=== PATIENT | female | born 1950 | race Caucasian/White ===

== ENCOUNTER 2017-01-23 10:00 | Inpatient (IN) | payer OTHER ==
[2017-02-23 11:40] VITALS: BMI 26.6
[2017-02-27] MEDS ORDERED: VASOPRESSIN 20 UNITS/ML VIAL IV ONE (08:44)
[2017-02-27] MEDS ORDERED: MIDAZOLAM HCL 2 MG/2 ML SINGLE DOSE VIAL ONE (09:23)
[2017-02-27] MEDS ORDERED: ROCURONIUM BROMIDE 50 MG/5 ML VIAL ONE (09:23)
[2017-02-27] MEDS ORDERED: PROPOFOL 20 ML ONE (09:23)
[2017-02-27] MEDS ORDERED: SCOPOLAMINE HYDROBROMIDE 1 PATCH PATCH.TD72 ONE (09:24)
[2017-02-27] MEDS ORDERED: LIDOCAINE HCL/PF 2% SDV 5ML VIAL ONE (09:25)
--- NOTE | 2017-02-27 09:41 | HP ---
Past Medical History - Primary Care Physician PCP:: Jameson Thorne - Admission Chief Complaint: utrovaginal prolapse, cystocele, rectocele History of Present Illness: 66 yo f menopausal c/o bulge from vagina with pelvic pressure, urinary frequency , hx of uterovaginal prolapse admitted for vaginal hysterectomy and ap repair, pernioplasty, rba discussed History Source: Patient Limitations to Obtaining History: No Limitations - Past Medical History Cardiovascular: Yes: Hyperlipdemia Pulmonary: Yes: Asthma Psych: Yes: Anxiety, Depression - Past Surgical History Hx Myomectomy: No Hx Transabdominal Cerclage: No - Smoking History Smoking history: Former smoker Have you smoked in the past 12 months: No - Alcohol/Substance Use Hx Alcohol Use: Yes (WINE) Home Medications - Allergies Allergies/Adverse Reactions: Allergies Allergy/AdvReac Type Severity Reaction Status Date / Time Penicillins Allergy Verified 02/27/17 07:35 - Home Medications Home Medications: Ambulatory Orders Atorvastatin Ca [Lipitor] 5 mg PO HS 02/23/17 Fexofenadine/Pseudoephedrine [Maggie-D 24 Hour Tablet] 100 each PO DAILY Fluticasone Propionate [Flovent Diskus] 50 mcg NS DAILY 02/23/17 Levothyroxine [Synthroid -] 100 mcg PO DAILY 02/23/17 [place] Carbonate [Eskalith -] 300 mg PO DAILY 02/23/17 Meclizine HCl 12.5 mg PO PRN PRN 02/23/17 Oxybutynin Chloride 5 mg PO DAILY 02/23/17 Rizatriptan Benzoate [Maxalt] 10 mg PO PRN PRN 02/23/17 Review of Systems - Review of Systems Constitutional: reports: No Symptoms Eyes: reports: No Symptoms HENT: reports: No Symptoms Neck: reports: No Symptoms Cardiovascular: reports: No Symptoms Respiratory: reports: No Symptoms Gastrointestinal: reports: Abdominal Pain Genitourinary: reports: Frequency, Urgency Breasts: reports: No Symptoms Reported Musculoskeletal: reports: No Symptoms Integumentary: reports: No Symptoms Neurological: reports: No Symptoms Endocrine: reports: No Symptoms Hematology/Lymphatic: reports: No Symptoms Psychiatric: reports: No Symptoms 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 Signs: Vital Signs Temperature 98.3 F 02/27/17 07:30 Pulse Rate 73 02/27/17 07:30 Respiratory Rate 18 02/27/17 07:30 Blood Pressure 114/78 02/27/17 07:30 O2 Sat by Pulse Oximetry (%) 98 02/27/17 07:30 Constitutional: Yes: Well Nourished, No Distress, Calm Eyes: Yes: WNL, Conjunctiva Clear, EOM Intact HENT: Yes: WNL, Atraumatic, Normocephalic Neck: Yes: WNL, Supple, Trachea Midline Cardiovascular: Yes: WNL, Regular Rate and Rhythm Respiratory: Yes: WNL, Regular, CTA Bilaterally Gastrointestinal: Yes: WNL ...Rectal Exam: Yes: WNL Renal/: Yes: WNL Internal Exam Deferred: No Vaginal Exam: Yes: Other (gaping) Cervix: Yes: Normal, Other (out of vagina) Uterus: Yes: Normal Adnexa: Not Palpable: Left, Right Breast(s): Yes: WNL Musculoskeletal: Yes: WNL Extremities: Yes: WNL Edema: No Integumentary: Yes: WNL Neurological: Yes: WNL, Alert, Oriented ...Motor Strength: WNL Psychiatric: Yes: WNL, Alert, Oriented Problem List - Problem (1) Uterovaginal prolapse Code(s): N81.4 - UTEROVAGINAL PROLAPSE, UNSPECIFIED (2) Cystocele with rectocele Code(s): N81.10 - CYSTOCELE, UNSPECIFIED N81.6 - RECTOCELE Assessment/Plan vaginal hysterectomy, A.P repair.rba discussed
[2017-02-27] MEDS ORDERED: LEVOFLOXACIN 500 MG PREMIX BAG IVPB ONE (10:00)
[2017-02-27] MEDS ORDERED: LEVOFLOXACIN 500 MG IVPB 100 ML IVPB ONE (10:02)
[2017-02-27] MEDS ORDERED: DEXAMETHASONE SOD PHOSPHATE 4 MG/1 ML VIAL ONE ×2 (10:03→11:23)
[2017-02-27] MEDS ORDERED: ONDANSETRON 4 MG/2 ML VIAL ONE (10:03)
[2017-02-27] MEDS ORDERED: GLYCOPYRROLATE 0.2 MG/1 ML VIAL ONE (11:18)
[2017-02-27] MEDS ORDERED: NEOSTIGMINE METHYLSULFATE 0.5 MG/ML - 10 ML MDV ONE (11:18)
[2017-02-27] MEDS ORDERED: MECLIZINE HCL 12.5 MG TABLET PO PRN (11:22)
[2017-02-27] MEDS ORDERED: PATIENT'S OWN MEDICATION (NON-FORMULARY) (Rizatriptan Benzoate [Maxalt] 10 MG) PO PRN (11:22)
[2017-02-27] MEDS ORDERED: IBUPROFEN 600 MG TABLET (FP) PO PRN (11:24)
[2017-02-27] MEDS ORDERED: oxyCODONE HCL 5 MG TABLET PO PRN (11:24)
[2017-02-27] MEDS ORDERED: ONDANSETRON 4 MG/2 ML VIAL IVPB PRN (11:24)
[2017-02-27] MEDS ORDERED: ELECTROLYTE-148 SOLN 1,000 ML IV SCH (11:30)
[2017-02-27] MEDS ORDERED: LORAZEPAM CARPU-JECT 2 MG/ML DISP.SYRIN ONE (11:36)
[2017-02-27] MEDS ORDERED: LORAZEPAM CARPU-JECT 2 MG/ML DISP.SYRIN IVPUSH ONE (11:36)
[2017-02-27] MEDS ORDERED: PROMETHAZINE HCL 25 MG/1 ML VIAL IVPUSH PRN (11:36)
[2017-02-27] MEDS ORDERED: ONDANSETRON 4 MG/2 ML VIAL IVPUSH PRN (11:36)
[2017-02-27] MEDS ORDERED: LACTATED RINGERS SOLUTION 1,000 ML IV SCH (11:45)
[2017-02-27] MEDS ORDERED: IBUPROFEN 800 MG/8 ML IJ IVPB ONE (12:27)
[2017-02-27] MEDS: IBUPROFEN 800 MG/8 ML IJ IVPB PRN ×2 (13:20→19:35)
[2017-02-27] MEDS ORDERED: CLINDAMYCIN 600MG PREMIX IVPB 50 ML IVPB ONE (18:00)
[2017-02-27] MEDS ORDERED: ATORVASTATIN CA 10 MG TABLET (FP) PO SCH (22:00)
[2017-02-28] MEDS: IBUPROFEN 800 MG/8 ML IJ IVPB PRN (05:19)
[2017-02-28] MEDS ORDERED: LEVOTHYROXINE NA 100 MCG TABLET (FP) PO SCH (07:00)
[2017-02-28 08:41] LABS: COCKROFT - GAULT 41.8115; CREATININE 1.3 mg/dL (0.55-1.02)
[2017-02-28 08:45] LABS: MCH 26.8 pg (25.7-33.7); MCHC 32.5 g/dl (32.0-36.0); MEAN CELL VOLUME 82.6 fl (80-96); MEAN PLT VOLUME 9.5 fl (7.5-11.1); PLATELET COUNT 192 K/MM3 (134-434)
[2017-02-28] MEDS ORDERED: PATIENT'S OWN MEDICATION (NON-FORMULARY) (Fluticasone Propionate [Flovent Diskus] 50 MCG) NS SCH (10:00)
[2017-02-28] MEDS ORDERED: CLINDAMYCIN 600MG PREMIX IVPB 50 ML IVPB ONE (10:00)
[2017-02-28] MEDS ORDERED: LEVOFLOXACIN 500 MG TABLET (FP) PO ONE (10:00)
[2017-02-28] MEDS ORDERED: PATIENT'S OWN MEDICATION (NON-FORMULARY) (Fexofenadine/Pseudoephedrine [Allegra-D 24 Hour PO SCH (10:00)
[2017-02-28] MEDS ORDERED: LITHIUM CARBONATE 300 MG CAPSULE (FP) PO SCH (10:00)
[2017-02-28] MEDS ORDERED: LEVOFLOXACIN 500 MG IVPB 100 ML IVPB ONE (10:00)
[2017-02-28] MEDS ORDERED: ENOXAPARIN NA (PORCINE) 40 MG/0.4 ML DISP.SYRIN SQ SCH (10:00)
--- NOTE | 2017-02-28 10:34 | PN ---
Progress Note (short form) - Note Progress Note: pod 1 doing well, no c/o ,voids ok, passing gas, no vaginal bleeding or discharge pulse 77 CBC, BMP 02/28/17 07:30 02/28/17 07:30 Last Vital Signs Temp Pulse Resp BP Pulse Ox 97.7 F 44 L 18 103/62 100 02/28/17 06:00 02/28/17 06:00 02/28/17 06:00 02/28/17 06:00 02/27/17 14:45 abdomen soft, no distension , no cva, non tender vagina no bleeding or discharge no calf tenderness impression doing well, asymptomatic , plan d/c home follow up with pcp. rto 3 weeks instruction given, Tylenol prn for pain Problem List - Problems (1) Uterovaginal prolapse Code(s): N81.4 - UTEROVAGINAL PROLAPSE, UNSPECIFIED (2) Cystocele with rectocele Code(s): N81.10 - CYSTOCELE, UNSPECIFIED N81.6 - RECTOCELE
--- NOTE | 2017-02-28 10:38 | DS ---
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: Vital Signs Temperature 97.7 F 02/28/17 06:00 Pulse Rate 44 L 02/28/17 06:00 Respiratory Rate 18 02/28/17 06:00 Blood Pressure 103/62 02/28/17 06:00 O2 Sat by Pulse Oximetry (%) 100 02/27/17 14:45 Constitutional: Yes: Well Nourished, No Distress, Calm Eyes: Yes: WNL, Conjunctiva Clear, EOM Intact HENT: Yes: WNL, Atraumatic, Normocephalic Neck: Yes: WNL, Supple, Trachea Midline Cardiovascular: Yes: WNL, Regular Rate and Rhythm Respiratory: Yes: WNL, Regular, CTA Bilaterally Gastrointestinal: Yes: WNL ...Rectal Exam: Yes: WNL Renal/: Yes: WNL External Genitalia: Yes: Normal Vaginal Exam: Yes: Normal Breast(s): Yes: WNL Musculoskeletal: Yes: WNL Extremities: Yes: WNL Integumentary: Yes: WNL Neurological: Yes: WNL, Alert, Oriented ...Motor Strength: WNL Psychiatric: Yes: WNL, Alert, Oriented Labs: CBC, BMP 02/28/17 07:30 02/28/17 07:30 Discharge Summary Reason For Visit: UTEROVAGINAL PROLAPSE Current Active Problems Cystocele with rectocele (Acute) Uterovaginal prolapse (Acute) Procedures: Principal: vaginal hysterectomy, cystorectocele repair , pernioplasty Condition: Good - Instructions Diet, Activity, Other Instructions: regular diet, if pain, difficulty voiding,heavy bleeding, fever , call MD, follow up office 3 weeksno intercourse Referrals: Jameson Thorne MD [Staff Physician] - Disposition: HOME - Home Medications Comprehensive Discharge Medication List: Ambulatory Orders Atorvastatin Ca [Lipitor] 5 mg PO HS 02/23/17 Fexofenadine/Pseudoephedrine [Maggie-D 24 Hour Tablet] 100 each PO DAILY Fluticasone Propionate [Flovent Diskus] 50 mcg NS DAILY 02/23/17 Levothyroxine [Synthroid -] 100 mcg PO DAILY 02/23/17 [place] Carbonate [Eskalith -] 300 mg PO DAILY 02/23/17 Meclizine HCl 12.5 mg PO PRN PRN 02/23/17 Oxybutynin Chloride 5 mg PO DAILY 02/23/17 Rizatriptan Benzoate [Maxalt] 10 mg PO PRN PRN 02/23/17
[2017-02-28] MEDS ORDERED: BISACODYL 10 MG SUPP.RECT RC ONE (11:02)
[2017-02-28] MEDS ORDERED: BISACODYL 5 MG TABLET.DR (FP) PO ONE (11:15)
--- NOTE | 2017-02-28 11:15 | PN ---
Progress Note (short form) - Note Progress Note: ANESTHESIOLOGY POST-OP CHECK 66F s/p vaginal hysterectomy under general anesthesia, POD #1. No acute complaints. Denies pain, N/V. Tolerating PO, voiding. Vital Signs Temperature 97.7 F 02/28/17 06:00 Pulse Rate 44 L 02/28/17 06:00 Respiratory Rate 18 02/28/17 06:00 Blood Pressure 103/62 02/28/17 06:00 O2 Sat by Pulse Oximetry (%) 100 02/27/17 14:45 Active Medications Atorvastatin Calcium (Lipitor -) 5 mg PO HS [facility] Last Admin: 02/27/17 21:40 Dose: 5 mg Bisacodyl (Dulcolax -) 20 mg PO ONCE ONE Stop: 02/28/17 11:16 Enoxaparin Sodium (Lovenox -) 40 mg SQ DAILY [facility] Last Admin: 02/28/17 09:49 Dose: 40 mg Parenteral Electrolytes (Plasma-Lyte 148 -) 1,000 mls @ 125 mls/hr IV ASDIR [facility] Last Admin: 02/27/17 19:00 Dose: Not Given Lactated Ringer's (Lactated Ringers Solution) 1,000 mls @ 125 mls/hr IV ASDIR [facility] Last Admin: 02/28/17 02:01 Dose: 125 mls/hr Ibuprofen (Motrin -) 600 mg PO Q6H PRN PRN Reason: FEVER Ibuprofen (Caldolor Injection -) 800 mg IVPB Q6H PRN PRN Reason: FEVER Last Admin: 02/28/17 05:19 Dose: 800 mg Levothyroxine Sodium (Synthroid -) 100 mcg PO DAILY@0700 [facility] Last Admin: 02/28/17 06:22 Dose: 100 mcg [place] Carbonate (Eskalith -) 300 mg PO DAILY [facility] Last Admin: 02/28/17 09:44 Dose: 300 mg Meclizine HCl (Antivert -) 12.5 mg PO DAILY PRN PRN Reason: DIZZINESS Non-Formulary Medication (Fexofenadine/Pseudoephedrine [Maggie-D 24 Hour Tablet ]) 100 each PO DAILY [facility] Non-Formulary Medication (Fluticasone Propionate [Flovent Diskus]) 50 mcg NS DAILY [facility] Last Admin: 02/28/17 09:54 Dose: Not Given Non-Formulary Medication (Rizatriptan Benzoate [Maxalt]) 10 mg PO PRN PRN PRN Reason: HEADACHE Ondansetron HCl (Zofran Injection) 4 mg IVPB Q6H PRN PRN Reason: NAUSEA Oxycodone HCl (Roxicodone -) 5 mg PO Q4H PRN PRN Reason: PAIN LEVEL 1-5 Gen: Awake, alert No apparent anesthesia complications. Pain well controlled. Continue management as per primary team.
[2017-02-28 13:43] VITALS: BP 91/58; PULSE 47; TEMP 98
--- NOTE | 2017-02-28 13:53 | PATH ---
Surgical Pathology Report Patient Name: [facility]. Rec. 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 Specimen(s) Received A: UTERUS AND CERVIX B: ANTERIOR & POSTERIOR VAGINAL MUCOSA C: PERINEUM SKIN Clinical History Uterovaginal prolapse, rectocele Final Diagnosis A. UTERUS AND CERVIX, HYSTERECTOMY: UTERUS AND CERVIX, 31 GRAMS, WITH HYALINIZED LEIOMYOMA WITH DYSTROPHIC CALCIFICATION, ATROPHIC ENDOMETRIUM, BENIGN ENDOCERVICAL POLYP, AND CERVIX WITH CHRONIC INFLAMMATION. B. VAGINAL MUCOSA, ANTERIOR AND POSTERIOR, EXCISION: BENIGN SQUAMOUS MUCOSA WITH CHRONIC INFLAMMATION. C. PERINEUM, EXCISION: BENIGN SQUAMOUS MUCOSA. Electronically Signed Harinder Segura M.D. Gross Description A. Received in formalin labeled "uterus and cervix," is a 31 g uterus with an attached cervix and no attached adnexa. The specimen measures 6.8 cm from superior to inferior, 2.8 cm from left to right and 2.0 cm from anterior to posterior. The serosa is pink-watters and smooth with a focal 2.8 cm in greatest dimension bulging subserosal nodule. The attached cervix measures 2.3 cm in length and averages 2.1 cm in diameter. The ectocervix is pink-watters, smooth and glistening. The endocervix displays a 0.7 cm in greatest dimension polypoid lesion on the anterior surface. The endometrial cavity measures 3 cm in length a 1 cm from cornu to cornu. The endometrium is watters and averages 0.1 cm in thickness. The myometrium is watters-pink and averages 0.9 cm in thickness. No intramural nodules are identified. The cut surface of the subserosal nodule is watters, firm to rubbery and displays whirled architecture. No areas of hemorrhage or necrosis are identified. [employer] sections are submitted in 8 cassettes as follows: 1-anterior cervix with endocervical polyp; 2-posterior cervix; 8-2-qcxiuyhs endomyometrium; 9-1-vhfwoeris endomyometrium; 1-2-vpstpgksee nodule. B. Received in formalin labeled "anterior/posterior vaginal mucosa," are 2 watters-pink, irregular, unoriented portions of mucosal tissue measuring 3.5 x 1.9 x 0.2 cm and 5.7 x 1.9 x 0.3 cm. No discrete lesions are identified. [employer] sections are submitted in one cassette. C. Received in formalin labeled "perineum skin," are 2 watters, irregular, unoriented portions of skin measuring 2.0 x 0.8 x 0.3 cm and 1.8 x 1.3 x 0.3 cm. No discrete lesions are identified. [employer] sections are submitted in one cassette. 02/27/2017 [facility]02/27/2017
--- NOTE | 2017-02-28 14:47 | OP ---
DATE OF OPERATION: 02/27/2017 PREOPERATIVE DIAGNOSIS: Uterovaginal prolapse, cystocele, rectocele. POSTOPERATIVE DIAGNOSIS: Uterovaginal prolapse, cystocele, rectocele. PROCEDURE PERFORMED: Vaginal hysterectomy, anterior and posterior repair and perineoplasty. SURGEON: Jameson Thorne MD WILLOW ANALYST: Dr. Lara Tolentino. ANESTHESIA: ANESTHESIOLOGIST: ESTIMATED BLOOD LOSS: 150 mL. PROCEDURE IN DETAIL: The patient was taken to the operating room and underwent adequate general anesthesia. Examination under anesthesia revealed vaginal introitus gaping, large rectocele with moderate cystocele. Cervix was out of the vagina. Uterus was retroverted with a small posteriorly. Adnexa no masses palpable. With the weighted speculum in the vagina, anterior lip of the cervix was grasped with single-tooth tenaculum. Paravaginal lavaged and mucosa was infiltrated with a vasopressin solution and Miguel was inserted. Then, vaginal mucosa was circumferentially cut around the cervix and the cervix was grasped with single-toothed tenaculum and then anterior and posterior vaginal mucosa was undermined with Metzenbaum scissors and then the posterior cul-de-sac peritoneum was grasped and entered and then the weighted speculum was placed into the posterior cul-de-sac. Then, the bladder was pushed out. Uterosacral ligament was identified, grasped with LigaSure cautery, cauterized and cut. The anterior peritoneum was entered and then bladder was lifted. With the LigaSure cautery both uterine arteries were cauterized and cut. Then, paramesial area was grasped with LigaSure cautery, cauterized and cut and then the upper pedicles were reached. Upper pedicles were grasped with the Jorge clamp, cauterized with bipolar cautery and cut. Then, the pedicles were tied with 2-0 Vicryl ties. No active bleeding was seen. Specimen was removed. The peritoneum and vaginal mucosa were closed with interrupted suture of 0 Vicryl. The anterior vaginal mucosa was infiltrated with a dilution of the vasopressin and then undermined with Metzenbaum scissors and the vaginal mucosa from the bladder then excess vaginal mucosa was cut and then the cystocele was repaired with interrupted suture of 3-0 Vicryl. Excess vaginal mucosa was cut and anterior vaginal mucosa was brought together with interrupted suture of the 3-0 Vicryl. Then, the posterior repair started with infiltrating the posterior vaginal mucosa with diluted vasopressin and then the posterior vaginal perineal skin was removed with Metzenbaum scissors and then posterior vaginal mucosa was undermined with Metzenbaum scissors, from the rectum and then rectocele was repaired with interrupted suture of 3-0 Vicryl and reduced completely. Then, the excess vaginal mucosa was cut and the posterior vaginal mucosa brought together with interrupted suture of 3-0 Vicryl. Then, the posterior perineal muscles were brought together with interrupted suture of 3-0 Vicryl and then vaginal mucosa and the perineum were closed with suture of 3-0 Vicryl in episiotomy like fashion. Miguel had clear urine. No active bleeding. Vaginal wall was irrigated and not bleeding was seen. The patient tolerated the procedure well and left the OR in good condition. Gus [id number]
== END 2017-02-28 16:05 | disposition home or self-care (01) | DRG 743 ==
LOC: JSAMEDAYSX 02-27 06:51 → J3W 02-27 14:10
PROVIDERS: ADMIT Obstetrics & Gynecology; ATTEND Obstetrics & Gynecology
PROC: 0UTC7ZZ Resection of Cervix, Via Natural or Artificial Opening (ICD-10-PCS; 2017-02-27)
PROC: 0JQC0ZZ Repair Pelvic Region Subcutaneous Tissue and Fascia, Open Approach (ICD-10-PCS; 2017-02-27)
PROC: 0JQC0ZZ Repair Pelvic Region Subcutaneous Tissue and Fascia, Open Approach (ICD-10-PCS; 2017-02-27)
PROC: 0HQ9XZZ Repair Perineum Skin, External Approach (ICD-10-PCS; 2017-02-27)
PROC: 0UT97ZZ Resection of Uterus, Via Natural or Artificial Opening (ICD-10-PCS; principal; 2017-02-27 09:00)
DX: N81.4 Uterovaginal prolapse, unspecified (principal); N81.10 Cystocele, unspecified; N81.6 Rectocele; E78.5 Hyperlipidemia, unspecified; J45.909 Unspecified asthma, uncomplicated; F41.9 Anxiety disorder, unspecified; F32.9 Major depressive disorder, single episode, unspecified; R35.0 Frequency of micturition
CPT/HCPCS: 36415; 80048; 85027; 86850; 86900; 86901; 88302-TC; 88307-TC; 94010; 94760

== ENCOUNTER 2018-09-27 15:42 | Inpatient (IN) | payer OTHER ==
--- NOTE | 2018-09-27 16:04 | PDOC ---
Rapid Medical Evaluation Chief Complaint: Pain, Acute Time Seen by Provider: 09/27/18 15:58 Medical Evaluation: Allergies Allergy/AdvReac Type Severity Reaction Status Date / Time Penicillins Allergy Verified 09/27/18 15:58 Vital Signs Temp Pulse Resp BP Pulse Ox 97.8 F 65 16 147/74 100 09/27/18 15:59 09/27/18 15:59 09/27/18 15:59 09/27/18 15:59 09/27/18 15:59 09/27/18 16:04 I have performed a brief in-person evaluation of this patient. The patient presents with a chief complaint of: Severe lower abd pain w/ constipation. H/o cystole, rectocele, hysterectomy Pertinent physical exam findings:sig ttp to lower abd diffusely I have ordered the following:labs, abd XR The patient will proceed to the ED for further evaluation. Discharge Disposition - Diagnosis Abdominal pain Qualifiers: Abdominal location: unspecified location Qualified Code(s): R10.9 - Unspecified abdominal pain - Referrals - Patient Instructions - Post Discharge Activity
[2018-09-27 16:49] LABS: BASO % 0.3 % (0-2.0); EOS % 0.6 % (0-4.5); HEMATOCRIT 37.9 % (32.4-45.2); LYMPH % 6.9 % (8-40); MCH 27.8 pg (25.7-33.7); MCHC 34.3 g/dl (32.0-36.0); MEAN PLT VOLUME 8.5 fl (7.5-11.1); MONO % 3.5 % (3.8-10.2); NEUT % 88.7 % (42.8-82.8); PLATELET COUNT 262 K/MM3 (134-434); RBC 4.68 M/mm3 (3.60-5.2); RDW 13.7 % (11.6-15.6); WHITE BLOOD COUNT 14.2 K/mm3 (4.0-10.0)
[2018-09-27 16:53] LABS: URINE APPEARANCE CLEAR; URINE BILIRUBIN NEGATIVE (<2.0 mg/dL); URINE COLOR STRAW; URINE GLUCOSE (UA) NEGATIVE (NEGATIVE); URINE KETONE NEGATIVE (NEGATIVE); URINE LEUK ESTERASE NEGATIVE (NEGATIVE); URINE NITRITE NEGATIVE (NEGATIVE); URINE PROTEIN NEGATIVE (NEGATIVE); URINE UROBILINOGEN NEGATIVE mg/dL (0.2-1.0)
[2018-09-27 17:12] LABS: ALBUMIN 3.8 g/dl (3.4-5.0); ALK PHOS 71 U/L (45-117); ANION GAP 9 MMOL/L (8-16); BILIRUBIN,TOTAL 0.3 mg/dL (0.2-1); BLOOD UREA NITROGEN 25 mg/dL (7-18); CALCIUM 10.1 mg/dL (8.5-10.1); CHLORIDE 108 mmol/L (98-107); CO2 25 mmol/L (21-32); CREATININE 1.2 mg/dL (0.55-1.3); GLUCOSE,RANDOM 118 mg/dL (74-106); LIPASE 325 U/L (73-393); POTASSIUM 4.1 mmol/L (3.5-5.1); SGOT/AST 34 U/L (15-37); SGPT/ALT 38 U/L (13-61); SODIUM 142 mmol/L (136-145); TOT PROT 6.9 g/dl (6.4-8.2)
--- NOTE | 2018-09-27 17:40 | PDOC ---
History of Present Illness - General Chief Complaint: Pain, Acute Stated Complaint: ABD PAIN Time Seen by Provider: 09/27/18 15:58 History Source: Patient Exam Limitations: No Limitations - History of Present Illness Initial Comments: 09/27/18 17:43 Pt is a 67 y/o F with PMH of cholecystitis, constipation, who presents to the ED with two days of lower abdominal pain and constipation. Her last bowel movement was three days ago. Pt states that she tried taking miralax at home with no relief of her symptoms. She states that her pain is located mostly in the lower abdomen. She rates the pain an 8/10 and it does not radiate. Denies fevers, chills, shortness of breath, chest pain, nausea, vomiting, diarrhea, frequency, urgency, hematuria, rectal bleeding, and lightheadedness. Past History - Travel Traveled outside of the country in the last 30 days: No Close contact w/someone who was outside of country & ill: No - Past Medical History Allergies/Adverse Reactions: Allergies Allergy/AdvReac Type Severity Reaction Status Date / Time Penicillins Allergy Verified 09/27/18 15:58 Home Medications: Ambulatory Orders Atorvastatin Ca [Lipitor] 5 mg PO HS 02/23/17 Fluticasone Propionate [Flovent Diskus] 50 mcg NS DAILY 02/23/17 Levothyroxine [Synthroid -] 100 mcg PO DAILY 02/23/17 [place] Carbonate [Eskalith -] 300 mg PO DAILY 02/23/17 Meclizine HCl 12.5 mg PO PRN PRN 02/23/17 Rizatriptan Benzoate [Maxalt] 10 mg PO PRN PRN 02/23/17 Loratadine [Claritin] 10 mg PO DAILY 09/27/18 Anemia: No Asthma: No Cancer: No Cardiac Disorders: No CVA: No COPD: No CHF: No Dementia: No Diabetes: No GI Disorders: No Disorders: No HTN: No Hypercholesterolemia: No Liver Disease: No Seizures: No Thyroid Disease: Yes - Surgical History Cholecystectomy: Yes - Immunization History Immunization Up to Date: Yes - Suicide/Smoking/Psychosocial Hx Smoking History: Never smoked Have you smoked in the past 12 months: No Information on smoking cessation initiated: No Hx Alcohol Use: No Drug/Substance Use Hx: No Substance Use Type: None Hx Substance Use Treatment: No Review of Systems - Review of Systems Able to Perform ROS?: Yes Comments:: 09/27/18 18:54 CONSTITUTIONAL: Absent: fever, chills, diaphoresis, generalized weakness, malaise, loss of appetite HEENT: Absent: rhinorrhea, nasal congestion, throat pain, throat swelling, difficulty swallowing, mouth swelling, ear pain, eye pain, visual Changes CARDIOVASCULAR: Absent: chest pain, loss of consciousness, palpitations, irregular heart rate, peripheral edema RESPIRATORY: Absent: cough, shortness of breath, dyspnea with exertion, orthopnea, wheezing, stridor, hemoptysis GASTROINTESTINAL: Present: lower abdominal pain Absent: abdominal pain, abdominal distension, nausea, vomiting, diarrhea, constipation, melena, hematochezia GENITOURINARY: Absent: dysuria, frequency, urgency, hesitancy, hematuria, flank pain, genital pain MUSCULOSKELETAL: Absent: myalgia, arthralgia, joint swelling SKIN: Absent: rash, itching, pallor HEMATOLOGIC/IMMUNOLOGIC: Absent: easy bleeding, easy bruising, lymphadenopathy, frequent infections ENDOCRINE: Absent: unexplained weight gain, unexplained weight loss, heat intolerance, cold intolerance NEUROLOGIC: Absent: headache, focal weakness or paresthesias, dizziness, unsteady gait, seizure, mental status changes, bladder or bowel incontinence PSYCHIATRIC: Absent: anxiety, depression, suicidal or homicidal ideation, hallucinations. Is the patient limited Malagasy proficient: No *Physical Exam - Vital Signs Last Vital Signs Temp Pulse Resp BP Pulse Ox 97.8 F 65 16 147/74 100 09/27/18 15:59 09/27/18 15:59 09/27/18 15:59 09/27/18 15:59 09/27/18 15:59 - Physical Exam Comments: 09/27/18 18:55 GENERAL: Well developed, well nourished. Awake and alert. No acute distress. Pt appears uncomfortable. HEENT: Normocephalic, atraumatic. PERRLA, EOMI. No conjunctival pallor. Sclera are non- icteric. Moist mucous membranes. Oropharynx is clear. NECK: Supple. Full ROM. No JVD. Carotid pulses 2+ and symmetric, without bruits. No thyromegaly. No lymphadenopathy. CARDIOVASCULAR: Regular rate and rhythm. No murmurs, rubs, or gallops. Distal pulses are 2+ and symmetric. PULMONARY: No evidence of respiratory distress. Lungs clear to auscultation bilaterally. No wheezing, rales or rhonchi. ABDOMINAL: TTP of the LLQ with rebound, and radiation to the RLQ. Soft. Non-distended. No guarding. No organomegaly. Normoactive bowel sounds. MUSCULOSKELETAL Normal range of motion at all joints. No bony deformities or tenderness. No CVA tenderness. EXTREMITIES: No cyanosis. No clubbing. No edema. No calf tenderness. SKIN: Warm and dry. Normal capillary refill. No rashes. No jaundice. NEUROLOGICAL: Alert, awake, appropriate. Cranial nerves 2-12 intact. No deficits to light touch and temperature in face, upper extremities and lower extremities. No motor deficits in the in face, upper extremities and lower extremities. Normoreflexic in the upper and lower extremities. Normal speech. Toes are down- going bilaterally. Gait is normal without ataxia. PSYCHIATRIC: Cooperative. Good eye contact. Appropriate mood and affect. Moderate Sedation - Procedure Monitoring Vital Signs: Procedure Monitoring Vital Signs Temperature 97.8 F 09/27/18 15:59 Pulse Rate 65 09/27/18 15:59 Respiratory Rate 16 09/27/18 15:59 Blood Pressure 147/74 09/27/18 15:59 O2 Sat by Pulse Oximetry (%) 100 09/27/18 15:59 ED Treatment Course - LABORATORY CBC & Chemistry Diagram: 09/27/18 16:37 09/27/18 16:37 - ADDITIONAL ORDERS Additional order review: Laboratory Results 09/27/18 09/27/18 16:37 16:30 Sodium 142 Potassium 4.1 Chloride 108 H Carbon Dioxide 25 Anion Gap 9 BUN 25 H Creatinine 1.2 Creat Clearance w eGFR 44.54 Random Glucose 118 H Calcium 10.1 Total Bilirubin 0.3 AST 34 ALT 38 Alkaline Phosphatase 71 Total Protein 6.9 Albumin 3.8 Lipase 325 Urine Color Straw Urine Appearance Clear Urine pH 8.0 Ur Specific [place] 1.005 L Urine Protein Negative Urine Glucose (UA) Negative Urine Ketones Negative Urine Blood Negative Urine Nitrite Negative Urine Bilirubin Negative Urine Urobilinogen Negative Ur Leukocyte Esterase Negative 09/27/18 16:37 RBC 4.68 MCV 81.0 MCHC 34.3 RDW 13.7 MPV 8.5 D Neutrophils % 88.7 H Lymphocytes % 6.9 L Monocytes % 3.5 L Eosinophils % 0.6 Basophils % 0.3 Medical Decision Making - Medical Decision Making 09/27/18 19:13 Pt is a 67 y/o F who presents to the ED for constipation and lower abdominal pain for three days. -Exquisite TTP of the LLQ with rebound and radiation to the RLQ -Labs obtained from E show WBC count of 14 and L shift concerning for bacterial infection -DDx includes but is not limited to: diverticulitis, colitis, constipation, gastroenteritis. Unlikely SBO as patient has soft abdomen with no vomiting. -CTAP with IV contrast ordered. Enema ordered as well. -Unable to perform rectal exam at this time as pt is in the vertical area. -Pt signed out to JOEL Shah; pt pending CTAP results; dispo pending. *DC/Admit/Observation/Transfer Diagnosis at time of Disposition: Abdominal pain Qualifiers: Abdominal location: unspecified location Qualified Code(s): R10.9 - Unspecified abdominal pain - Referrals - Patient Instructions - Post Discharge Activity
[2018-09-27] MEDS ORDERED: MINERAL OIL ENEMA 133 ML ENEMA PR ONE (17:51)
[2018-09-27] MEDS ORDERED: SODIUM CHLORIDE 1,000 ML IV STA (21:18)
[2018-09-27] MEDS ORDERED: ACETAMINOPHEN 1000 MG/100 ML VIAL (NON FORMULARY) IVPB ONE (21:44)
[2018-09-27] MEDS ORDERED: ACETAMINOPHEN INJECTION 100 ML IVPB ONE (22:06)
--- NOTE | 2018-09-27 22:06 | PDOC ---
*Physical Exam - Vital Signs Last Vital Signs Temp Pulse Resp BP Pulse Ox 97.8 F 60 16 137/76 100 09/27/18 15:59 09/27/18 17:56 09/27/18 15:59 09/27/18 17:56 09/27/18 15:59 ED Treatment Course - LABORATORY CBC & Chemistry Diagram: 09/27/18 16:37 09/27/18 16:37 - ADDITIONAL ORDERS Additional order review: Laboratory Results 09/27/18 09/27/18 16:37 16:30 Sodium 142 Potassium 4.1 Chloride 108 H Carbon Dioxide 25 Anion Gap 9 BUN 25 H Creatinine 1.2 Creat Clearance w eGFR 44.54 Random Glucose 118 H Calcium 10.1 Total Bilirubin 0.3 AST 34 ALT 38 Alkaline Phosphatase 71 Total Protein 6.9 Albumin 3.8 Lipase 325 Urine Color Straw Urine Appearance Clear Urine pH 8.0 Ur Specific [place] 1.005 L Urine Protein Negative Urine Glucose (UA) Negative Urine Ketones Negative Urine Blood Negative Urine Nitrite Negative Urine Bilirubin Negative Urine Urobilinogen Negative Ur Leukocyte Esterase Negative 09/27/18 16:37 RBC 4.68 MCV 81.0 MCHC 34.3 RDW 13.7 MPV 8.5 D Neutrophils % 88.7 H Lymphocytes % 6.9 L Monocytes % 3.5 L Eosinophils % 0.6 Basophils % 0.3 Medical Decision Making - Medical Decision Making Patient signed out to me by JOEL Macedo Patient reassessed and mentions feeling slightly better CT A/P done showed 5x4.3x3.4 cm oval shaped structure along middle third of sigmoid colon - possibly inflamed diverticulum? Discussed findings with surgery, Dr. Underwood, who states it is difficult to ascertain what this could be as no oral contrast was given to patient (could be colon inflammation vs stool ball). Recommends 1 L NS IVF, holding off on antibiotics for now, keeping patient NPO and placing patient in observation for repeat labs and possible repeat CT tomorrow with PO contrast. Patient's PCP: Dr. Tuan Bronson (at [facility]) 09/27/18 22:01 *DC/Admit/Observation/Transfer Diagnosis at time of Disposition: Abdominal pain Qualifiers: Abdominal location: unspecified location Qualified Code(s): R10.9 - Unspecified abdominal pain - Discharge Dispostion Condition at time of disposition: Stable Decision to Admit order: Yes - Referrals - Patient Instructions - Post Discharge Activity
[2018-09-28] MEDS ORDERED: MECLIZINE HCL 12.5 MG TABLET PO PRN (01:52)
--- NOTE | 2018-09-28 02:28 | HP ---
Admitting History and Physical - Admission Chief Complaint: abdominal pain and discomfort History of Present Illness: this is a 67 y/o F with PMH of cholecystitis, chronic constipation, Bipolar disorder, presented to the ED with two days of lower abdominal pain and constipation. Her last bowel movement was two to three days ago. Pt states that she tried taking generic miralax at home with no relief of her symptoms. She states that her pain is located mostly in the lower abdomen. She rates the pain an 8/10 and it does not radiate. Denies fevers, chills, shortness of breath , chest pain, nausea, vomiting, diarrhea, frequency, urgency, hematuria, rectal bleeding, and lightheadedness. Limitations to Obtaining History: No Limitations - Past Medical History Cardiovascular: Yes: Hyperlipdemia Pulmonary: Yes: Asthma Psych: Yes: Anxiety, Depression - Smoking History Smoking history: Never smoked Have you smoked in the past 12 months: No - Alcohol/Substance Use Hx Alcohol Use: No Home Medications - Allergies Allergies/Adverse Reactions: Allergies Allergy/AdvReac Type Severity Reaction Status Date / Time Penicillins Allergy Verified 09/27/18 15:58 - Home Medications Home Medications: Ambulatory Orders Atorvastatin Ca [Lipitor] 5 mg PO HS 02/23/17 Fluticasone Propionate [Flovent Diskus] 50 mcg NS DAILY 02/23/17 Levothyroxine [Synthroid -] 100 mcg PO DAILY 02/23/17 [place] Carbonate [Eskalith -] 300 mg PO DAILY 02/23/17 Meclizine HCl 12.5 mg PO PRN PRN 02/23/17 Rizatriptan Benzoate [Maxalt] 10 mg PO PRN PRN 02/23/17 Loratadine [Claritin] 10 mg PO DAILY 09/27/18 Review of Systems - Review of Systems Constitutional: reports: No Symptoms Eyes: reports: No Symptoms HENT: reports: No Symptoms Neck: reports: No Symptoms Cardiovascular: reports: No Symptoms Respiratory: reports: No Symptoms Gastrointestinal: reports: Abdominal Pain, Bloating, Constipation Physical Examination Vital Signs: Vital Signs Temperature 101.1 F H 09/27/18 22:03 Pulse Rate 86 09/27/18 22:03 Respiratory Rate 18 09/27/18 22:03 Blood Pressure 129/77 09/27/18 22:03 O2 Sat by Pulse Oximetry (%) 97 09/27/18 22:03 Constitutional: Yes: Well Nourished, No Distress, Calm Eyes: Yes: WNL, Conjunctiva Clear, EOM Intact HENT: Yes: WNL, Atraumatic, Normocephalic Neck: Yes: WNL, Supple, Trachea Midline Cardiovascular: Yes: WNL, Regular Rate and Rhythm Respiratory: Yes: WNL, Regular, CTA Bilaterally Gastrointestinal: Yes: WNL, Normal Bowel Sounds, Soft, Abdomen, Obese ...Rectal Exam: Yes: Deferred Musculoskeletal: Yes: WNL Extremities: Yes: WNL Integumentary: Yes: WNL Neurological: Yes: WNL, Alert, Oriented Labs: CBC, BMP 09/27/18 16:37 09/27/18 16:37 Imaging - Results Chest X-ray: Report Reviewed, Image Reviewed Cat Scan: Report Reviewed, Image Reviewed Problem List - Problems (1) Abdominal pain Assessment/Plan: patient with chronic constipation last bowel movement 3 days ago can be 2/2 constipation vs diverticulosis vs diverticulitis high fiber diet avoid medication that increase risk of constipation keep NPO for abdominal CT scan with contrast Code(s): R10.9 - UNSPECIFIED ABDOMINAL PAIN Qualifiers: Abdominal location: unspecified location Qualified Code(s): R10.9 - Unspecified abdominal pain (2) Cystocele with rectocele Assessment/Plan: Surgery are following up the patient will repeat CT scan start metronidazole 500mg q8hrs Code(s): N81.10 - CYSTOCELE, UNSPECIFIED; N81.6 - RECTOCELE
[2018-09-28] MEDS ORDERED: ACETAMINOPHEN INJECTION 100 ML IVPB ONE (03:16)
[2018-09-28] MEDS ORDERED: ACETAMINOPHEN 1000 MG/100 ML VIAL (NON FORMULARY) IVPB ONE (03:39)
[2018-09-28] MEDS: SODIUM CHLORIDE 1,000 ML IV SCH ×2 (04:00→11:50)
[2018-09-28] MEDS: ACETAMINOPHEN 325 MG TABLET (FP) PO PRN ×2 (09:35→16:43)
[2018-09-28] MEDS: LITHIUM CARBONATE 300 MG CAPSULE (FP) PO SCH (09:35)
[2018-09-28] MEDS: LEVOTHYROXINE NA 100 MCG TABLET (FP) PO SCH (09:35)
[2018-09-28] MEDS: LORATADINE 10 MG TABLET PO SCH (09:35)
[2018-09-28] MEDS ORDERED: ACETAMINOPHEN 325 MG TABLET (FP) ONE (09:38)
[2018-09-28] MEDS ORDERED: PATIENT'S OWN MEDICATION (NON-FORMULARY) (Fluticasone Propionate [Flovent Diskus] 50 MCG) NS SCH (10:00)
[2018-09-28] MEDS ORDERED: MORPHINE SULFATE 2 MG/ML VIAL IVPUSH ONE (11:57)
[2018-09-28] MEDS ORDERED: MORPHINE SULFATE 2 MG/ML VIAL ONE (12:19)
--- NOTE | 2018-09-28 13:07 | PN ---
Progress Note (short form) - Note Progress Note: c/o hunger and abdominal pain which is relieved wtih pain medication. denies CP , SOB, fever, chills, N/V/C/D Current Medications Generic Name Dose Route Start Last Admin Trade Name Freq PRN Reason Stop Dose Admin Acetaminophen 650 mg 09/28/18 09:04 09/28/18 09:35 Tylenol - PO 650 mg Q4H PRN Administration pain Atorvastatin Calcium 5 mg 09/28/18 22:00 Lipitor - PO HS THOMAS Heparin Sodium (Porcine) 5,000 unit 09/28/18 06:00 Heparin - SQ TID THOMAS Sodium Chloride 1,000 mls @ 125 mls/hr 09/28/18 03:00 09/28/18 11:50 Normal Saline - IV 125 mls/hr ASDIR THOMAS Administration Ceftriaxone Sodium 2 mg/ 50 mls @ 100 mls/hr 09/28/18 13:15 Dextrose IVPB DAILY THOMAS Metronidazole 500 mg in 100 mls @ 100 mls/hr 09/28/18 13:15 Flagyl 500mg Premixed Ivpb - IVPB Q8H-IV THOMAS Levothyroxine Sodium 100 mcg 09/28/18 07:00 09/28/18 09:35 Synthroid - PO 100 mcg DAILY@0700 THOMAS Administration [place] Carbonate 300 mg 09/28/18 10:00 09/28/18 09:35 Eskalith - PO 300 mg DAILY THOMAS Administration Loratadine 10 mg 09/28/18 10:00 09/28/18 09:35 Claritin - PO 10 mg DAILY THOMAS Administration Meclizine HCl 12.5 mg 09/28/18 01:52 Antivert - PO PRN PRN DIZZINESS Non-Formulary Medication 50 mcg 09/28/18 10:00 Fluticasone Propionate [Flovent Diskus] NS DAILY THOMAS (Rizatriptan 10 mg 09/28/18 11:00 Benzoate [Maxalt] 10 PO Mg)- Pt's Own PRN PRN Medication HEADACHE Last Vital Signs Temp Pulse Resp BP Pulse Ox 98.8 F 78 18 125/74 98 09/28/18 09:00 09/28/18 09:00 09/28/18 09:00 09/28/18 09:00 09/28/18 09:35 General NAD CV S1 S2 RRR no murmur/rub/gallop Lungs CTA B/L no wheezing/rales/rhonchi Abdomen soft +distended +RLQ tenderness +guarding. no BS appreciated extremities no pedal edema CBCD WBC 14.2 K/mm3 (4.0-10.0) H 09/27/18 16:37 RBC 4.68 M/mm3 (3.60-5.2) 09/27/18 16:37 Hgb 13.0 GM/dL (10.7-15.3) 09/27/18 16:37 Hct 37.9 % (32.4-45.2) 09/27/18 16:37 MCV 81.0 fl (80-96) 09/27/18 16:37 MCHC 34.3 g/dl (32.0-36.0) 09/27/18 16:37 RDW 13.7 % (11.6-15.6) 09/27/18 16:37 Plt Count 262 K/MM3 (134-434) D 09/27/18 16:37 MPV 8.5 fl (7.5-11.1) D 09/27/18 16:37 CMP Sodium 142 mmol/L (136-145) 09/27/18 16:37 Potassium 4.1 mmol/L (3.5-5.1) 09/27/18 16:37 Chloride 108 mmol/L (98-107) H 09/27/18 16:37 Carbon Dioxide 25 mmol/L (21-32) 09/27/18 16:37 Anion Gap 9 MMOL/L (8-16) 09/27/18 16:37 BUN 25 mg/dL (7-18) H 09/27/18 16:37 Creatinine 1.2 mg/dL (0.55-1.3) 09/27/18 16:37 Creat Clearance w eGFR 44.54 (>60) 09/27/18 16:37 Calcium 10.1 mg/dL (8.5-10.1) 09/27/18 16:37 Total Bilirubin 0.3 mg/dL (0.2-1) 09/27/18 16:37 AST 34 U/L (15-37) 09/27/18 16:37 ALT 38 U/L (13-61) 09/27/18 16:37 Alkaline Phosphatase 71 U/L (45-117) 09/27/18 16:37 Total Protein 6.9 g/dl (6.4-8.2) 09/27/18 16:37 Albumin 3.8 g/dl (3.4-5.0) 09/27/18 16:37 A/P 67yo F wtih PMH cholecystitis and bipolar presented with abdominal pain and constipation for [address] + 5.4x4.3x3.4cm pocket concerning for large inflammed diverticulum vs contained perforation 1. Sepsis due to suspected diverticulitis- Tm 101.1 with leukocytosis. will obtain stat BCX and lactate. start flagyl and levaquin now until can confirm what kind of allergy to PCN and IVF 2. Suspected localized perforation- spoke with surgeon who wants to repeat CT imaging with contrast. unsure if will be able to give contrast given renal function. check stat labs. if not can be done with po contrast. NPO, IVF and pain control. 3. MONIKA- likely infection and dehydration. ivf. repeat labs. avoid nephrotoxic agents 4. dilated CBD- repeat imaging. no pain in RUQ. will see on repeat imaging. consider dedicated study if unrevealing. LFT are normal so doubt obstruction 5. Bipolar- continue home medication 6. DVT ppx- hep sq Visit type - Emergency Visit Emergency Visit: Yes ED Registration Date: 09/28/18 Care time: The patient presented to the Emergency Department on the above date and was hospitalized for further evaluation of their emergent condition. - New Patient This patient is new to me today: Yes Date on this admission: 09/28/18 - Critical Care Critical Care patient: No - Discharge Referral Referred to [facility] Med P.C.: No
[2018-09-28] MEDS ORDERED: CEFTRIAXONE 2 MG in DEXTROSE 5%-WATER - 50 ML IVPB SCH (13:15)
[2018-09-28] MEDS: HEPARIN NA (PORCINE) 5,000 UNITS/ML 1ML VIAL SQ SCH ×4 (14:51→21:42)
[2018-09-28 15:03] LABS: BASO % 0.4 % (0-2.0); HEMATOCRIT 37.6 % (32.4-45.2); HEMOGLOBIN 12.8 GM/dL (10.7-15.3); LYMPH % 4.9 % (8-40); MCHC 34.1 g/dl (32.0-36.0); MEAN CELL VOLUME 81.9 fl (80-96); MEAN PLT VOLUME 8.6 fl (7.5-11.1); MONO % 4.7 % (3.8-10.2); PLATELET COUNT 204 K/MM3 (134-434); RBC 4.59 M/mm3 (3.60-5.2); RDW 13.8 % (11.6-15.6)
[2018-09-28 15:34] LABS: ALBUMIN 3.1 g/dl (3.4-5.0); ALK PHOS 58 U/L (45-117); ANION GAP 8 MMOL/L (8-16); BILIRUBIN,TOTAL 0.9 mg/dL (0.2-1); BLOOD UREA NITROGEN 22 mg/dL (7-18); CALCIUM 9.3 mg/dL (8.5-10.1); CHLORIDE 116 mmol/L (98-107); CO2 22 mmol/L (21-32); CREATININE 1.3 mg/dL (0.55-1.3); GLUCOSE,RANDOM 122 mg/dL (74-106); SGOT/AST 47 U/L (15-37); SGPT/ALT 53 U/L (13-61); SODIUM 145 mmol/L (136-145); TOT PROT 6.2 g/dl (6.4-8.2)
[2018-09-28 15:52] LABS: ANISOCYTOSIS 0; MACROCYTOSIS 0; PLATELET ESTIMATE NORMAL
[2018-09-28] MEDS ORDERED: SODIUM CHLORIDE 1,000 ML IV STA (17:21)
--- NOTE | 2018-09-28 17:34 | CONSULT ---
Consult Consult Specialty:: General Surgery Referred by:: Nikki Pike Reason for Consultation:: possible sigmoid diverticulitis? - History of Present Illness Chief Complaint: suprapubic/pelvic pain, constipation History of Present Illness: 67yo F with multiple medical issues noted constipation a few days ago, and that she would try to go, but wasn't able to pass much stool, and began having suprapubic pain on which got progressively worse, prompting her visit to ER. She ate an eggplant dish Sunday at a restaurant and had leftovers , after which the pain came on and got bad. She denies N/V, F/C, or similar pain in past. She had vaginal hysterectomy with anterior and posterior repair for prolapse/cystocele/rectocele in 03/14. She had been on incontinence med, but has since stopped at doctor's request, and feels her frequency of urination has returned. No diarrhea. She came to ER night, and while here, also tried to have BM but had severe suprapubic/pelvic pain. In ER, she had wbc 14, BUN/Cr slightly high at 25/1.2 (only previous known here is 20/1.3 in 03/14), and AXR showed only clips in gb fossa. CT was done showing ovoid structure adjacent to mid-sigmoid wall with debris, air/fluid in it, possibly enlarged diverticulum? possibly stool ball in sigmoid, but not clear if actually in bowel segment or adjacent to it. Mesentery next to is also inflamed , but no barney abscess or diverticulitis, no obstruction, stool throughout colon (not much in rectum), no free air or fluid. She was admitted to medicine, given IVF and pain meds, and started on abx (Levo/ Flagyl) today. Surgery was asked to evaluate. She is seen in bed in room on floor, at bedside (who is very anxious, easily tearful). She still has some pain, indicates mainly suprapubic, but also somewhat diffuse. No n/v, mouth feels very dry. She just had temp 101.7, had been 101.1 overnight, and is getting tylenol from nurse. IV site infiltrated, new one is being placed. She is also somewhat anxious, and has some difficulty finding words, but is cooperative and moves ok in bed. - History Source History Provided By: Patient Limitations to Obtaining History: No Limitations - Past Medical History [employer]: Yes: Migraine, Vertigo Cardio/Vascular: Yes: HTN, Hyperlipdemia Pulmonary: Yes: Asthma Gastrointestinal: Yes: Constipation, Hiatal Hernia Reproductive: Yes: Postmenopausal Psych: Yes: Anxiety, Bipolar, Depression ENT: Yes: Allergic Rhinitis Endocrine: Yes: Hypothyroidism - Past Surgical History Past Surgical History: Yes: Cholecystectomy (laparoscopic), Colonoscopy, Hysterectomy (vaginal with ant/post repair) - Alcohol/Substance Use Hx Alcohol Use: Yes (social/occasional) History of Substance Use: reports: None - Smoking History Smoking history: Former smoker Have you smoked in the past 12 months: No If you are a former smoker, when did you quit?: 1980s - Social History Usual Living Arrangement: With Spouse ADL: Independent Home Medications - Allergies Allergies/Adverse Reactions: Allergies Allergy/AdvReac Type Severity Reaction Status Date / Time Penicillins Allergy Verified 09/27/18 15:58 - Home Medications Home Medications: Ambulatory Orders Atorvastatin Ca [Lipitor] 5 mg PO HS 02/23/17 Levothyroxine [Synthroid -] 100 mcg PO DAILY 02/23/17 [place] Carbonate [Eskalith -] 300 mg PO DAILY 02/23/17 Meclizine HCl 12.5 mg PO PRN PRN 02/23/17 Rizatriptan Benzoate [Maxalt] 10 mg PO PRN PRN 02/23/17 Loratadine [Claritin] 10 mg PO DAILY 09/27/18 Home Medications (free text): pt uses saline nasal spray, not Flonase anymore Family Disease History - Family Disease History Family Disease History: CA: Sister (lymphoma at 70, alive at 75) Other Family History: multiple family members with hiatal hernia Review of Systems - Review of Systems Constitutional: denies: Chills, Fever, Loss of Appetite Eyes: denies: Blurred Vision, Recent Change in Vision HENT: denies: Difficult Swallowing, Nasal Congestion, Throat Pain Neck: denies: Swollen Glands, Tenderness Cardiovascular: denies: Chest Pain, Palpitations Respiratory: denies: Cough, SOB Gastrointestinal: reports: Abdominal Pain (with hpi), Constipation (with hpi). denies: Diarrhea, Nausea, Vomiting Genitourinary: reports: Frequency. denies: Burning, Dysuria Musculoskeletal: denies: Back Pain, Joint Pain, Muscle Pain Integumentary: denies: Change in Color, Rash Neurological: reports: Dizziness (infrequently, vertigo), Headache (last migraine ~6days ago), Tremors, Unsteady Gait (sometimes - does not use ambulation aid) Psychiatric: reports: Anxiety, Depression Physical Exam Vital Signs: Vital Signs Temperature 98.8 F 09/28/18 14:32 Pulse Rate 84 09/28/18 14:32 Respiratory Rate 18 09/28/18 14:32 Blood Pressure 126/78 09/28/18 14:32 O2 Sat by Pulse Oximetry (%) 95 09/28/18 14:32 Constitutional: Yes: Well Nourished, Calm, Mild Distress Eyes: Yes: Conjunctiva Clear, EOM Intact HENT: Yes: Atraumatic, Normocephalic, Other (dry mucus membranes) Neck: Yes: Supple, Trachea Midline Cardiovascular: Yes: Regular Rate and Rhythm, Murmur (systolic) Respiratory: Yes: Regular, CTA Bilaterally Gastrointestinal: Yes: Soft, Distention (mild), Hypoactive Bowel Sounds, Tenderness (diffuse but less RLQ/suprapubic with some guarding but no rebound), Tenderness, Epigastrium, Other (healed lap lee ann scars). No: Tenderness, Rebound ...Rectal Exam: Yes: Deferred Renal/: No: CVA Tenderness - Left, CVA Tenderness - Right Musculoskeletal: No: Joint Stiffness, Joint Swelling Extremities: No: Cool, Cyanosis Edema: No Peripheral Pulses WNL: Yes Integumentary: No: Jaundice, Rash Neurological: Yes: Alert, Oriented, Aphasia (difficulty finding words at times - per pt, happens when she is nervous/anxious), Tremors (occasional hand tremors ) Psychiatric: Yes: Alert, Oriented Labs: CBC, BMP 09/28/18 14:52 09/28/18 14:52 CMP Sodium 145 mmol/L (136-145) 09/28/18 14:52 Potassium 4.0 mmol/L (3.5-5.1) 09/28/18 14:52 Chloride 116 mmol/L (98-107) H 09/28/18 14:52 Carbon Dioxide 22 mmol/L (21-32) 09/28/18 14:52 Anion Gap 8 MMOL/L (8-16) 09/28/18 14:52 BUN 22 mg/dL (7-18) H 09/28/18 14:52 Creatinine 1.3 mg/dL (0.55-1.3) 09/28/18 14:52 Creat Clearance w eGFR 40.61 (>60) 09/28/18 14:52 Random Glucose 122 mg/dL (74-106) H 09/28/18 14:52 Lactic Acid 0.9 mmol/L (0.4-2.0) 09/28/18 14:52 Calcium 9.3 mg/dL (8.5-10.1) 09/28/18 14:52 Total Bilirubin 0.9 mg/dL (0.2-1) 09/28/18 14:52 AST 47 U/L (15-37) H 09/28/18 14:52 ALT 53 U/L (13-61) 09/28/18 14:52 Alkaline Phosphatase 58 U/L (45-117) 09/28/18 14:52 Total Protein 6.2 g/dl (6.4-8.2) L 09/28/18 14:52 Albumin 3.1 g/dl (3.4-5.0) L 09/28/18 14:52 Lipase 325 U/L (73-393) 09/27/18 16:37 Urine Test Results Urine Color Straw 09/27/18 16:30 Urine Appearance Clear 09/27/18 16:30 Urine pH 8.0 (5.0-8.0) 09/27/18 16:30 Ur Specific [place] 1.005 (1.010-1.035) L 09/27/18 16:30 Urine Protein Negative (NEGATIVE) 09/27/18 16:30 Urine Glucose (UA) Negative (NEGATIVE) 09/27/18 16:30 Urine Ketones Negative (NEGATIVE) 09/27/18 16:30 Urine Blood Negative (NEGATIVE) 09/27/18 16:30 Urine Nitrite Negative (NEGATIVE) 09/27/18 16:30 Urine Bilirubin Negative (<2.0 mg/dL) 09/27/18 16:30 Ur Leukocyte Esterase Negative (NEGATIVE) 09/27/18 16:30 wbc down from 14 BUN/Cr from 25/1.2 (only previous entry in [employer] was 20/1.3 in 03/14) Imaging - Results Cat Scan: Pending (repeat with PO contrast pending), Report Reviewed, Image Reviewed (images reviewed - discussed with Dr. Aguilar/RAD - no free air or fluid , no obstruction, mid-sigmoid with adjacent ovoid structure with debris/air/ fluid in it, ?large diverticulum vs stool ball lodged in bowel? with adjacent mesenteric edema but no barney abscess or clear diverticulitis; some other tics present, no appendicitis, absent gallbladder, moderate stool throughout colon without significant distal burden) Problem List - Problems (1) Suprapubic pain Assessment/Plan: admitted to medicine NPO except essential meds; generous IV hydration nonnarcotic pain meds first line trend labs she is on antibiotics from medical team temp spike just now repeating CT with PO contrast, but will hold off on IV contrast given lack of improvement in creatinine and unknown baseline IV site infiltrated - nurse just placed a new one bolus another liter of crystalloid and continue IVF unclear exactly what source of pain represents - diverticulitis? stercoral ulceration? pending CT results, further rec's to follow discussed potential of needing surgery - and that it could include possible colostomy pt understands, will further discuss R/B/A if/when indicated Code(s): R10.2 - PELVIC AND PERINEAL PAIN (2) Abnormal CT scan, sigmoid colon Code(s): R93.3 - ABNORMAL FINDINGS ON DX IMAGING OF PRT DIGESTIVE TRACT (3) Constipation Assessment/Plan: oral contrast likely to be both diagnostic and therapeutic Code(s): K59.00 - CONSTIPATION, UNSPECIFIED Qualifiers: Constipation type: unspecified constipation type Qualified Code(s): K59.00 - Constipation, unspecified (4) Bipolar disorder Assessment/Plan: would check lithium level Code(s): F31.9 - BIPOLAR DISORDER, UNSPECIFIED Qualifiers: Active/Remission status: in remission of unspecified degree Qualified Code( s): F31.70 - Bipolar disorder, currently in remission, most recent episode unspecified (5) Hypertension Code(s): I10 - ESSENTIAL (PRIMARY) HYPERTENSION Qualifiers: Hypertension type: essential hypertension Qualified Code(s): I10 - Essential (primary) hypertension (6) Hyperlipidemia Code(s): E78.5 - HYPERLIPIDEMIA, UNSPECIFIED Qualifiers: Hyperlipidemia type: unspecified Qualified Code(s): E78.5 - Hyperlipidemia , unspecified (7) Hypothyroidism Code(s): E03.9 - HYPOTHYROIDISM, UNSPECIFIED Qualifiers: Hypothyroidism type: unspecified Qualified Code(s): E03.9 - Hypothyroidism , unspecified (8) Hiatal hernia without gangrene or obstruction Code(s): K44.9 - DIAPHRAGMATIC HERNIA WITHOUT OBSTRUCTION OR GANGRENE
[2018-09-28] MEDS: MORPHINE SULFATE 2 MG/ML VIAL IVPUSH PRN (18:52)
[2018-09-28] MEDS: LACTATED RINGERS SOLUTION 1,000 ML/1,000 ML INFUS.BAG IV SCH (20:07)
[2018-09-28] MEDS ORDERED: ATORVASTATIN CA 10 MG TABLET (FP) PO SCH (22:00)
[2018-09-29] MEDS: ACETAMINOPHEN 325 MG TABLET (FP) PO PRN (01:34)
[2018-09-29] MEDS: LACTATED RINGERS SOLUTION 1,000 ML/1,000 ML INFUS.BAG IV SCH ×2 (05:30→12:15)
[2018-09-29] MEDS: HEPARIN NA (PORCINE) 5,000 UNITS/ML 1ML VIAL SQ SCH ×5 (06:03→21:55)
[2018-09-29] MEDS: LEVOTHYROXINE NA 100 MCG TABLET (FP) PO SCH (06:13)
[2018-09-29 07:50] LABS: BASO % 0.1 % (0-2.0); HEMATOCRIT 38.6 % (32.4-45.2); HEMOGLOBIN 12.1 GM/dL (10.7-15.3); LYMPH % 9.6 % (8-40); MCH 26.2 pg (25.7-33.7); MCHC 31.4 g/dl (32.0-36.0); MEAN CELL VOLUME 83.5 fl (80-96); MEAN PLT VOLUME 9.1 fl (7.5-11.1); MONO % 6.4 % (3.8-10.2); NEUT % 83.9 % (42.8-82.8); PLATELET COUNT 191 K/MM3 (134-434); RBC 4.62 M/mm3 (3.60-5.2); RDW 14.1 % (11.6-15.6); WHITE BLOOD COUNT 6.4 K/mm3 (4.0-10.0)
[2018-09-29 08:13] LABS: ALBUMIN 2.6 g/dl (3.4-5.0); ALK PHOS 39 U/L (45-117); ANION GAP 10 MMOL/L (8-16); BILIRUBIN,TOTAL 0.7 mg/dL (0.2-1); BLOOD UREA NITROGEN 27 mg/dL (7-18); CALCIUM 9.3 mg/dL (8.5-10.1); CHLORIDE 115 mmol/L (98-107); CO2 21 mmol/L (21-32); CREATININE 1.3 mg/dL (0.55-1.3); GLUCOSE,RANDOM 104 mg/dL (74-106); MAGNESIUM 1.9 mg/dL (1.8-2.4); PHOSPHOROUS 2.5 mg/dL (2.5-4.9); POTASSIUM 4.3 mmol/L (3.5-5.1); SGOT/AST 32 U/L (15-37); SGPT/ALT 44 U/L (13-61); SODIUM 146 mmol/L (136-145); TOT PROT 5.4 g/dl (6.4-8.2)
[2018-09-29] MEDS: MORPHINE SULFATE 2 MG/ML VIAL IVPUSH PRN (08:49)
[2018-09-29] MEDS ORDERED: PT OWN MED DRAWER 7, Y5N ONE (09:11)
[2018-09-29] MEDS: LITHIUM CARBONATE 300 MG CAPSULE (FP) PO SCH (09:28)
[2018-09-29] MEDS: LORATADINE 10 MG TABLET PO SCH (09:32)
[2018-09-29] MEDS ORDERED: ERTAPENEM SODIUM 1 GM/50 ML PRE-DOCKED IVPB SCH (10:00)
[2018-09-29] MEDS ORDERED: METOPROLOL TARTRATE 5 MG/5 ML VIAL IVPUSH ONE (10:45)
--- NOTE | 2018-09-29 10:58 | PN ---
Teaching Attending Note Name of Resident: Yaima Baeza ATTENDING PHYSICIAN STATEMENT I saw and evaluated the patient. I reviewed the resident's note and discussed the case with the resident. I agree with the resident's findings and plan as documented. SUBJECTIVE:c/o diffuse abdominal pain. no specific area. denies CP, SOB, fever, chills, N/V/C/D OBJECTIVE: Last Vital Signs Temp Pulse Resp BP Pulse Ox 98.6 F 130 H 20 131/71 92 L 09/29/18 09:25 09/29/18 09:25 09/29/18 09:25 09/29/18 09:25 09/28/18 21:00 General NAD, +warm to touch CV S1 S2 tachy Lungs decreased bases however poor inspiratory effort Abdomen diffusely tender +guarding. no BS not distended ASSESSMENT AND PLAN: 67yo F wtih PMH cholecystitis and bipolar presented with abdominal pain and constipation for [address] + 5.4x4.3x3.4cm pocket concerning for large inflammed diverticulum vs contained perforation 1. Sepsis due to suspected diverticulitis- Tm 101.7 and leukocytosis resolved. abx switched to Ertapenem. repeat CT with contrast. cont NPO, IVF, nausea and pain control. f/u Cx. 2. Suspected localized perforation-repeat CT with po contrast done yesterday. awaiting official read. does not appear much different from yesterday. contained diverticulitis perforation possible. will speak with surgeon about management. NPO, IVF and pain control. 3. tachycardia- likely due to infection/pain. check stat EKG 4. MONIKA- likely infection and dehydration. ivf. repeat labs. avoid nephrotoxic agents 5. dilated CBD- repeat imaging. no pain in RUQ. will see on repeat imaging. consider dedicated study if unrevealing. LFT are normal so doubt obstruction 6. Bipolar- continue home medication 7. DVT ppx- hep sq
[2018-09-29] MEDS ORDERED: ACETAMINOPHEN 1000 MG/100 ML VIAL (NON FORMULARY) IVPB PRN ×2 (11:02→12:28)
--- NOTE | 2018-09-29 11:16 | PN ---
Physical Exam: SUBJECTIVE: Patient seen and examined at bedside. patient seems in distress, she is in a lot of pain and had refused morphine overnight but agreed to take it this morning- patient was tahcycardic this AM stat EKG done showing Afib with RVR, then repeat done showing sinus tachy. OBJECTIVE: Vital Signs Period Temp Pulse Resp BP Sys/Choi Pulse Ox Last 24 Hr 98.0 F-101.7 F 84-130 18-22 108-136/56-85 92-96 GENERAL: The patient is awake, alert, appears in distress and in pain EYES: no scleral icterus, NECK: no JVD, no lymphadenopathy LUNGS:slightly diminished breath sounds ; patient is tachypneic on NC HEART: tachycardic, S1, S2 without murmur, rub or gallop. ABDOMEN: diffusely tender; no BS present; no rebound or guarding EXTREMITIES: 2+ pulses, warm, well-perfused, no edema. SKIN: Warm, dry, normal turgor, no rashes or lesions noted Laboratory Results - last 24 hr 09/28/18 09/28/18 09/28/18 14:52 14:52 14:52 WBC 10.0 RBC 4.59 Hgb 12.8 Hct 37.6 MCV 81.9 MCH 28.0 MCHC 34.1 RDW 13.8 Plt Count 204 D MPV 8.6 Absolute Neuts (auto) 9.0 H Neutrophils % 90.0 H Neutrophils % (Manual) 68.0 Band Neutrophils % 18.0 Lymphocytes % 4.9 L D Lymphocytes % (Manual) 2.0 L Monocytes % 4.7 Monocytes % (Manual) 7 Eosinophils % 0.0 D Eosinophils % (Manual) 0.0 Basophils % 0.4 Basophils % (Manual) 0.0 Myelocytes % (Man) 0 Promyelocytes % (Man) 0 Blast Cells % (Manual) 0 Nucleated RBC % 0 Metamyelocytes 0 Hypochromia 0 Platelet Estimate Normal Polychromasia 0 Poikilocytosis 0 Anisocytosis 0 Microcytosis 0 Macrocytosis 0 Sodium 145 Potassium 4.0 Chloride 116 H Carbon Dioxide 22 Anion Gap 8 BUN 22 H Creatinine 1.3 Creat Clearance w eGFR 40.61 Random Glucose 122 H Lactic Acid 0.9 Calcium 9.3 Phosphorus Magnesium Total Bilirubin 0.9 AST 47 H ALT 53 Alkaline Phosphatase 58 Total Protein 6.2 L Albumin 3.1 L 09/29/18 09/29/18 06:35 06:35 WBC 6.4 RBC 4.62 Hgb 12.1 Hct 38.6 MCV 83.5 MCH 26.2 MCHC 31.4 L RDW 14.1 Plt Count 191 MPV 9.1 Absolute Neuts (auto) 5.4 Neutrophils % 83.9 H Neutrophils % (Manual) Band Neutrophils % Lymphocytes % 9.6 D Lymphocytes % (Manual) Monocytes % 6.4 Monocytes % (Manual) Eosinophils % 0.0 Eosinophils % (Manual) Basophils % 0.1 Basophils % (Manual) Myelocytes % (Man) Promyelocytes % (Man) Blast Cells % (Manual) Nucleated RBC % 0 Metamyelocytes Hypochromia Platelet Estimate Polychromasia Poikilocytosis Anisocytosis Microcytosis Macrocytosis Sodium 146 H Potassium 4.3 Chloride 115 H Carbon Dioxide 21 Anion Gap 10 BUN 27 H Creatinine 1.3 Creat Clearance w eGFR 40.61 Random Glucose 104 Lactic Acid Calcium 9.3 Phosphorus 2.5 Magnesium 1.9 Total Bilirubin 0.7 AST 32 ALT 44 Alkaline Phosphatase 39 L Total Protein 5.4 L Albumin 2.6 L Active Medications Generic Name Dose Route Start Last Admin Trade Name Freq PRN Reason Stop Dose Admin Acetaminophen 650 mg 09/28/18 09:04 09/29/18 01:34 Tylenol - PO 650 mg Q4H PRN Administration pain Acetaminophen 1,000 mg 09/29/18 11:02 Ofirmev Injection - IVPB Q6H PRN pain Ertapenem 1 gm 09/29/18 10:00 Invanz (Pre-Docked) IVPB DAILY THOMAS Heparin Sodium (Porcine) 5,000 unit 09/28/18 06:00 09/29/18 06:03 Heparin - SQ Not Given TID THOMAS Lactated Ringer's 1,000 ml in 1,000 mls @ 125 mls/hr 09/28/18 17:30 09/29/18 05:30 Lactated Ringers Solution IV 125 mls/hr ASDIR THOMAS Administration Levothyroxine Sodium 100 mcg 09/28/18 07:00 09/29/18 06:13 Synthroid - PO 100 mcg DAILY@0700 THOMAS Administration [place] Carbonate 300 mg 09/28/18 10:00 09/29/18 09:28 Eskalith - PO 300 mg DAILY THOMAS Administration Morphine Sulfate 2 mg 09/28/18 14:25 09/29/18 08:49 Morphine Sulfate IVPUSH 2 mg Q4H PRN Administration PAIN LEVEL 7 - 10 ASSESSMENT/PLAN: 67 y/o female with PMH of cholecystitis and bipolar disorder presented to the ED with abdominal pain and constipation since found to have a 5x4.3x3.4 oval shaped structure with air possible representing an inflamed diverticulum vs. a contained perforation #Possible diverticulitis v. perforation? -repeat CT scan done with contrast yesterday which shows a increase in amount of free air possible showing to be a contained perforation -surgery is on board; appreciate their recs -Ertapenem was started today -morphine and tylenol for pain control -LR @ 125mls/hr -patient has not had fever since last night; will continue to monitor -f/u cx -NPO except meds #New onset Afib -patients first EKG showed Afib with RVR; second one done showing sinus tachycardia -transfer to tele -monitor #Bipolar Disorder -c/w with lithium #Hypothyroidism -c/w synthroid F/E/N LR @125mls/hr monitor electrolytes NPO except meds dipso: trasnfer to tele Problem List - Problems (1) Abdominal pain Code(s): R10.9 - UNSPECIFIED ABDOMINAL PAIN Qualifiers: Abdominal location: unspecified location Qualified Code(s): R10.9 - Unspecified abdominal pain (2) Abnormal CT scan, sigmoid colon Code(s): R93.3 - ABNORMAL FINDINGS ON DX IMAGING OF PRT DIGESTIVE TRACT (3) Bipolar disorder Code(s): F31.9 - BIPOLAR DISORDER, UNSPECIFIED Qualifiers: Active/Remission status: in remission of unspecified degree Qualified Code( s): F31.70 - Bipolar disorder, currently in remission, most recent episode unspecified Visit type - Emergency Visit Emergency Visit: Yes ED Registration Date: 09/28/18 Care time: The patient presented to the Emergency Department on the above date and was hospitalized for further evaluation of their emergent condition. - New Patient This patient is new to me today: Yes Date on this admission: 09/29/18 - Critical Care Critical Care patient: No
[2018-09-29] MEDS ORDERED: ERTAPENEM SODIUM 1 GM in SODIUM CHLORIDE 100 ML IVPB SCH (12:00)
[2018-09-29] MEDS: ERTAPENEM SODIUM 1 GM in SODIUM CHLORIDE 50 ML IVPB SCH (12:12)
[2018-09-29] MEDS ORDERED: MORPHINE SULFATE 2 MG/ML VIAL IVPUSH PRN (13:43)
[2018-09-29] MEDS ORDERED: LACTATED RINGERS SOLUTION 1,000 ML/1,000 ML INFUS.BAG IV SCH (13:43)
--- NOTE | 2018-09-29 14:32 | PN ---
Progress Note, Physician History of Present Illness: Pt with sigmoid diverticulitis, with CT yesterday showing slightly increased inflammation, fluid and locules of air in the region of microperforation, though contrast had not yet reached this area. She is having abdominal pain, especially when she moves or gets up to go to the bathroom, as well as some SOB , which she partly attributes to "nerves." She is on NC O2 and resting in bed on my arrival. She still c/o feeling very thirsty and wants ice chips. She is voiding light/clear urine per her, but no BM yet. She was changed to Ertapenem yesterday for antibiotics. WBC is down to 6 today. She was noted to be in afib with RVR this am, which then converted to sinus tach on next EKG. She got morphine about 9am, and will get another dose now. She is being moved to telemetry. - Current Medication List Current Medications: Active Medications Acetaminophen (Ofirmev Injection -) 1,000 mg IVPB Q6H PRN PRN Reason: PAIN LEVEL 1-5 Heparin Sodium (Porcine) (Heparin -) 5,000 unit SQ TID [facility] Ertapenem 1 gm/ Sodium (Chloride) 50 mls @ 100 mls/hr IVPB DAILY THOMAS Last Admin: 09/29/18 12:12 Dose: 100 mls/hr Lactated Ringer's (Lactated Ringers Solution) 1,000 ml in 1,000 mls @ 125 mls/ hr IV ASDIR [facility] Levothyroxine Sodium (Synthroid -) 100 mcg PO DAILY@0700 [facility] [place] Carbonate (Eskalith -) 300 mg PO DAILY [facility] Morphine Sulfate (Morphine Sulfate) 2 mg IVPUSH Q4H PRN PRN Reason: PAIN LEVEL 7 - 10 - Objective Vital Signs: Vital Signs Temperature 98.6 F 09/29/18 09:25 Pulse Rate 130 H 09/29/18 09:25 Respiratory Rate 20 09/29/18 09:25 Blood Pressure 131/71 09/29/18 09:25 O2 Sat by Pulse Oximetry (%) 93 L 09/29/18 09:25 Constitutional: Yes: Well Nourished, Calm, Anxious (gets anxious easily), Mild Distress (pain and shallow breathing) Eyes: Yes: Conjunctiva Clear, EOM Intact HENT: Yes: Atraumatic, Normocephalic, Other (dry mouth) Respiratory: Yes: CTA Bilaterally, On Nasal O2, Tachypnea (short, shallow breaths, and pausing during speaking). No: Rales, Wheezes Gastrointestinal: Yes: Soft, Distention (with tympany), Hypoactive Bowel Sounds (but present), Tenderness (diffusely except minimal in RLQ, with some guarding but no rebound), Tenderness, Epigastrium ...Rectal Exam: Yes: Deferred Extremities: No: Cool, Cyanosis Integumentary: No: Jaundice, Rash Neurological: Yes: Alert, Oriented Psychiatric: Yes: Alert, Other (easily anxious) Labs: CBC, BMP 09/29/18 06:35 09/29/18 06:35 CMP Sodium 146 mmol/L (136-145) H 09/29/18 06:35 Potassium 4.3 mmol/L (3.5-5.1) 09/29/18 06:35 Chloride 115 mmol/L (98-107) H 09/29/18 06:35 Carbon Dioxide 21 mmol/L (21-32) 09/29/18 06:35 Anion Gap 10 MMOL/L (8-16) 09/29/18 06:35 BUN 27 mg/dL (7-18) H 09/29/18 06:35 Creatinine 1.3 mg/dL (0.55-1.3) 09/29/18 06:35 Creat Clearance w eGFR 40.61 (>60) 09/29/18 06:35 Random Glucose 104 mg/dL (74-106) 09/29/18 06:35 Lactic Acid 0.9 mmol/L (0.4-2.0) 09/28/18 14:52 Calcium 9.3 mg/dL (8.5-10.1) 09/29/18 06:35 Phosphorus 2.5 mg/dL (2.5-4.9) 09/29/18 06:35 Magnesium 1.9 mg/dL (1.8-2.4) 09/29/18 06:35 Total Bilirubin 0.7 mg/dL (0.2-1) 09/29/18 06:35 AST 32 U/L (15-37) 09/29/18 06:35 ALT 44 U/L (13-61) 09/29/18 06:35 Alkaline Phosphatase 39 U/L (45-117) L 09/29/18 06:35 Total Protein 5.4 g/dl (6.4-8.2) L 09/29/18 06:35 Albumin 2.6 g/dl (3.4-5.0) L 09/29/18 06:35 - ....Imaging X-ray: Pending Cat Scan: Report Reviewed, Image Reviewed (images reviewed - still with pocket adjacent to sigmoid with few bubbles of air, inflammatory changes, possible little free fluid nearby, contrast does not yet reach colon; appears consistent with diverticulitis, no drainable abscess and no gross free air) Problem List - Problems (1) Diverticulitis of large intestine with perforation without abscess or bleeding Assessment/Plan: continue NPO except essential meds; generous IV hydration trend labs, check lithium level, TSH continue Ertapenem per ID will get f/u AXR pt still with significant pain and tenderness, SOB requiring NC O2 will adjust pain meds - sched IV tylenol, morphine as needed breakthrough serial exams following with you, discussed with Dr. Montoya discussed potential of needing surgery - and that chance of colostomy would be high will consider ice chips after AXR done Code(s): K57.20 - DVTRCLI OF LG INT W PERFORATION AND ABSCESS W/O BLEEDING (2) Suprapubic pain Code(s): R10.2 - PELVIC AND PERINEAL PAIN (3) Constipation Code(s): K59.00 - CONSTIPATION, UNSPECIFIED Qualifiers: Constipation type: other constipation type Qualified Code(s): K59.09 - Other constipation (4) Paroxysmal atrial fibrillation Assessment/Plan: newly noted this am - converted spontaneously to sinus tach moving to telemetry consider cardiology consultation keep lytes normal pain control Code(s): I48.0 - PAROXYSMAL ATRIAL FIBRILLATION (5) Bipolar disorder Assessment/Plan: would check lithium level, continue home med Code(s): F31.9 - BIPOLAR DISORDER, UNSPECIFIED Qualifiers: Active/Remission status: in remission of unspecified degree Qualified Code( s): F31.70 - Bipolar disorder, currently in remission, most recent episode unspecified (6) Hypertension Assessment/Plan: monitor, IV meds prn Code(s): I10 - ESSENTIAL (PRIMARY) HYPERTENSION Qualifiers: Hypertension type: essential hypertension Qualified Code(s): I10 - Essential (primary) hypertension (7) Hyperlipidemia Code(s): E78.5 - HYPERLIPIDEMIA, UNSPECIFIED Qualifiers: Hyperlipidemia type: unspecified Qualified Code(s): E78.5 - Hyperlipidemia , unspecified (8) Hypothyroidism Assessment/Plan: continue synthroid, check tsh Code(s): E03.9 - HYPOTHYROIDISM, UNSPECIFIED Qualifiers: Hypothyroidism type: unspecified Qualified Code(s): E03.9 - Hypothyroidism , unspecified (9) Hiatal hernia without gangrene or obstruction Code(s): K44.9 - DIAPHRAGMATIC HERNIA WITHOUT OBSTRUCTION OR GANGRENE
[2018-09-29] MEDS ORDERED: morphine SULFATE 4 MG/ML VIAL IVPUSH PRN (14:55)
[2018-09-29] MEDS: ACETAMINOPHEN 1000 MG/100 ML VIAL (NON FORMULARY) IVPB SCH ×2 (15:19→21:24)
[2018-09-29] MEDS: DEXTROSE 5%-0.45% SALINE 1,000 ML IV SCH (15:19)
[2018-09-29] MEDS: FAMOTIDINE 20 MG/50 ML IVPB 20 MG/50 ML MG IVPB SCH ×2 (15:20→21:24)
[2018-09-30] MEDS: ACETAMINOPHEN 1000 MG/100 ML VIAL (NON FORMULARY) IVPB SCH ×2 (02:29→09:46)
[2018-09-30] MEDS: HEPARIN NA (PORCINE) 5,000 UNITS/ML 1ML VIAL SQ SCH ×2 (06:12→13:31)
[2018-09-30] MEDS: LEVOTHYROXINE NA 100 MCG TABLET (FP) PO SCH (06:33)
[2018-09-30 07:11] LABS: HEMATOCRIT 34.9 % (32.4-45.2); MCH 26.5 pg (25.7-33.7); MCHC 31.6 g/dl (32.0-36.0); MEAN CELL VOLUME 83.9 fl (80-96); MEAN PLT VOLUME 9.2 fl (7.5-11.1); PLATELET COUNT 167 K/MM3 (134-434); RBC 4.16 M/mm3 (3.60-5.2); RDW 14.1 % (11.6-15.6)
[2018-09-30 07:22] LABS: ANION GAP 8 MMOL/L (8-16); BLOOD UREA NITROGEN 32 mg/dL (7-18); CHLORIDE 116 mmol/L (98-107); CO2 21 mmol/L (21-32); CREATININE 1.5 mg/dL (0.55-1.3); GLUCOSE,RANDOM 117 mg/dL (74-106); MAGNESIUM 2.1 mg/dL (1.8-2.4); PHOSPHOROUS 2.1 mg/dL (2.5-4.9); POTASSIUM 3.9 mmol/L (3.5-5.1); SODIUM 146 mmol/L (136-145)
[2018-09-30] MEDS ORDERED: PT OWN MED DRAWER 7, Y5N ONE (08:18)
[2018-09-30] MEDS ORDERED: METOPROLOL TARTRATE 5 MG/5 ML VIAL ONE (09:37)
[2018-09-30] MEDS: LITHIUM CARBONATE 300 MG CAPSULE (FP) PO SCH (09:46)
[2018-09-30] MEDS: ERTAPENEM SODIUM 1 GM in SODIUM CHLORIDE 50 ML IVPB SCH (09:47)
[2018-09-30] MEDS: FAMOTIDINE 20 MG/50 ML IVPB 20 MG/50 ML MG IVPB SCH ×2 (09:47→21:46)
--- NOTE | 2018-09-30 11:19 | EKG ---
Test Reason : Blood Pressure : / mmHG Vent. Rate : 155 BPM Atrial Rate : 114 BPM P-R Int : 000 ms QRS Dur : 072 ms QT Int : 270 ms P-R-T Axes : 000 035 -38 degrees QTc Int : 433 ms ATRIAL FIBRILLATION WITH RAPID VENTRICULAR RESPONSE NONSPECIFIC ST AND T WAVE ABNORMALITY ABNORMAL ECG NO PREVIOUS ECGS AVAILABLE Confirmed by DANY VERDUGO, TRISTON ([id number]) on 09/30/2018 11:18:46 AM Referred By: Confirmed By:TRISTON SAENZ MD
[2018-09-30] MEDS ORDERED: METOPROLOL TARTRATE 5 MG/5 ML VIAL IVPUSH PRN (11:49)
--- NOTE | 2018-09-30 12:16 | ECHO ---
Name: DON MYERS Exam:Adult Echocardiogram Study Date: 09/30/2018 10:03 AM Age: 67 yrs Reason For Study: NEW ONSET OF ATRIAL FIBRILLATION Height: 61 in Weight: 147 lb BSA: 1.7 m2 MMode/2D Measurements & Calculations IVSd: 0.71 cm Ao root diam: 2.6 cm LVIDd: 4.5 cm LA dimension: 3.0 cm LVIDs: 2.9 cm LVPWd: 0.70 cm EDV(Teich): 93.5 ml ESV(Teich): 32.5 ml Doppler Measurements & Calculations MV E max evangelista: 42.4 cm/sec TR max evangelista: 223.5 cm/sec MV A max evangelista: 57.3 cm/sec TR max P.2 mmHg MV E/A: 0.74 MV dec time: 0.13 sec Med Peak E' Evangelista: 5.5 cm/sec Med E/e': 7.8 Lat Peak E' Evangelista: 6.7 cm/sec Lat E/e': 6.3 Procedure A complete two-dimensional transthoracic echocardiogram was performed (2D, M-mode, Doppler and color flow Doppler). Technically limited study. Left Ventricle The left ventricle is normal in size. Left ventricular systolic function is normal. Ejection Fraction = 60- 65%. TDI reveals mildly impaired relaxation with normal filling pressure (E/E' 8). No regional wall m otion abnormalities noted. Right Ventricle The right ventricle is normal size. The right ventricular systolic function is normal. Atria The left atrial size is normal. Right atrial size is normal. Mitral Valve The mitral valve is normal in structure and function. There is trace to mild mitral regurgitation. Tricuspid Valve The tricuspid valve is normal in structure and function. There is mild tricuspid regurgitation. Right ventricular systolic pressure is normal. Aortic Valve The aortic valve is normal in structure and function. No aortic regurgitation is present. Pulmonic Valve The pulmonic valve is not well visualized. Great Vessels The aortic root is normal size. Pericardium/Pleura There is no pericardial effusion. Interpretation Summary The left ventricle is normal in size. Left ventricular systolic function is normal. No regional wall motion abnormalities noted. Ejection Fraction = 60-65%. TDI reveals mildly impaired relaxation with normal filling pressure (E/E' 8) The right ventricular systolic function is normal. The left atrial size is normal. Right atrial size is normal. There is trace to mild mitral regurgitation. There is mild tricuspid regurgitation. Right ventricular systolic pressure is normal. There is no pericardial effusion. Previous study is not available for comparison Gonzalez Akins MD 09/30/2018 12:15 PM
--- NOTE | 2018-09-30 12:34 | PN ---
Progress Note, Physician History of Present Illness: Pt with sigmoid diverticulitis, with f/u CT showing slightly increased inflammation, fluid and locules of air in the region of microperforation, though contrast had not yet reached this area. She is seen and examined resting in bed, on NC O2. She still c/o feeling thirsty. She is voiding light/clear urine, but no BM yet. She is on Ertapenem. Pain is better with scheduled tylenol , has not yet needed morphine in addition. She has not been out of bed much. She was noted yesterday to be in afib with RVR, which then converted to sinus tach on next EKG and is now on telemetry. She is currently in sinus tach in mid90s and has declined anticoagulation for future per chart notes. - Current Medication List Current Medications: Active Medications Heparin Sodium (Porcine) (Heparin -) 5,000 unit SQ TID [facility] Last Admin: 09/30/18 06:12 Dose: Not Given Ertapenem 1 gm/ Sodium (Chloride) 50 mls @ 100 mls/hr IVPB DAILY [facility] Last Admin: 09/30/18 09:47 Dose: 100 mls/hr Dextrose/Sodium Chloride (D5-1/2ns -) 1,000 mls @ 125 mls/hr IV ASDIR [facility] Last Admin: 09/29/18 15:19 Dose: 125 mls/hr Famotidine/Sodium Chloride (Pepcid 20 Mg Premixed Ivpb -) 20 mg in 50 mls @ 100 mls/hr IVPB BID [facility] Last Admin: 09/30/18 09:47 Dose: 100 mls/hr Levothyroxine Sodium (Synthroid -) 100 mcg PO DAILY@0700 [facility] Last Admin: 09/30/18 06:33 Dose: 100 mcg [place] Carbonate (Eskalith -) 300 mg PO DAILY [facility] Last Admin: 09/30/18 09:46 Dose: 300 mg Metoprolol Tartrate (Lopressor -) 25 mg PO BID [facility] Metoprolol Tartrate (Lopressor Injection -) 5 mg IVPUSH Q4H PRN PRN Reason: HYPERTENSION Morphine Sulfate (Morphine Sulfate) 4 mg IVPUSH Q3H PRN PRN Reason: PAIN LEVEL 7 - 10 - Objective Vital Signs: Vital Signs Temperature 98.2 F 09/30/18 06:05 Pulse Rate 97 H 09/30/18 06:05 Respiratory Rate 20 09/30/18 09:00 Blood Pressure 140/70 09/30/18 06:05 O2 Sat by Pulse Oximetry (%) 95 09/30/18 09:00 Constitutional: Yes: Well Nourished, No Distress, Calm Eyes: Yes: Conjunctiva Clear, EOM Intact HENT: Yes: Atraumatic, Normocephalic Cardiovascular: Yes: Tachycardia, Murmur (slight systolic?) Respiratory: Yes: On Nasal O2, Tachypnea (mild) Gastrointestinal: Yes: Normal Bowel Sounds, Soft, Distention (some upper), Tenderness (LLQ and less across upper abdomen - improved from yesterday). No: Tenderness, Rebound Extremities: No: Cool, Cyanosis Integumentary: No: Jaundice, Rash Neurological: Yes: Alert, Oriented Labs: CBC, BMP 09/30/18 05:30 09/30/18 05:30 BUN/Cr up - ....Imaging X-ray: Report Reviewed (images reviewed personally yesterday - report confirms some colonic contrast, some distended loops of SB and LB, no free air), Image Reviewed Problem List - Problems (1) Diverticulitis of large intestine with perforation without abscess or bleeding Assessment/Plan: continue NPO except essential meds, IV hydration, ok for ice chips no bowel function yet, anticipate loose/liquid stool when contrast is evacuated trend labs, lithium level pending, TSH normal monitor K+, may need to add to fluids continue Ertapenem pain better on sched IV tylenol, encouraged to use morphine if needed to get OOB to chair and ambulate periodically will order incentive spirometer serial exams following with you Code(s): K57.20 - DVTRCLI OF LG INT W PERFORATION AND ABSCESS W/O BLEEDING (2) Suprapubic pain Code(s): R10.2 - PELVIC AND PERINEAL PAIN (3) Constipation Code(s): K59.00 - CONSTIPATION, UNSPECIFIED Qualifiers: Constipation type: other constipation type Qualified Code(s): K59.09 - Other constipation (4) Paroxysmal atrial fibrillation Assessment/Plan: on tele after noted yesterday echo results noted - mild diastolic dysfunction but normal EF consider cardiology consultation keep lytes normal pain control Code(s): I48.0 - PAROXYSMAL ATRIAL FIBRILLATION (5) Bipolar disorder Assessment/Plan: checking lithium level, continue home med Code(s): F31.9 - BIPOLAR DISORDER, UNSPECIFIED Qualifiers: Active/Remission status: in remission of unspecified degree Qualified Code( s): F31.70 - Bipolar disorder, currently in remission, most recent episode unspecified (6) Hypertension Assessment/Plan: monitor, IV meds prn Code(s): I10 - ESSENTIAL (PRIMARY) HYPERTENSION Qualifiers: Hypertension type: essential hypertension Qualified Code(s): I10 - Essential (primary) hypertension (7) Hyperlipidemia Code(s): E78.5 - HYPERLIPIDEMIA, UNSPECIFIED Qualifiers: Hyperlipidemia type: unspecified Qualified Code(s): E78.5 - Hyperlipidemia , unspecified (8) Hypothyroidism Assessment/Plan: continue synthroid tsh normal Code(s): E03.9 - HYPOTHYROIDISM, UNSPECIFIED Qualifiers: Hypothyroidism type: unspecified Qualified Code(s): E03.9 - Hypothyroidism , unspecified (9) Hiatal hernia without gangrene or obstruction Code(s): K44.9 - DIAPHRAGMATIC HERNIA WITHOUT OBSTRUCTION OR GANGRENE
[2018-09-30] MEDS: METOPROLOL TARTRATE 25 MG TABLET (FP) PO SCH ×2 (13:30→21:41)
[2018-09-30] MEDS ORDERED: HEPARIN NA (PORCINE) 5,000 UNITS/ML 1ML VIAL IVPUSH PRN ×2 (14:21)
--- NOTE | 2018-09-30 14:28 | PN ---
Physical Exam: SUBJECTIVE: Patient seen and examined at bedside- patient had pain overnight but states hat the IV tylenol helps her and that she doesnt want to take the morphine. she also had runs of Afib with RVR overnight- she has not had any bowel movements yet. she denies any CP/SOB/N/V OBJECTIVE: Vital Signs Period Temp Pulse Resp BP Sys/Choi Pulse Ox Last 24 Hr 97.8 F-99.2 F 72-144 19-20 114-140/61-91 95-95 GENERAL: The patient is awake, alert, in slight acute distress. EYES: no scleral icterus. NECK: no JVD, no lymphadenopathy LUNGS: CTA B/L; no rales, rhonchi or wheeznig HEART: tachycardic, S1, S2 without murmur, rub or gallop. ABDOMEN: tender especially in LLQ, hypoactive BS + guarding. EXTREMITIES: 2+ pulses, warm, well-perfused, no edema. SKIN: Warm, dry, normal turgor, no rashes or lesions noted Laboratory Results - last 24 hr 09/29/18 09/30/18 09/30/18 15:15 05:30 05:30 WBC 6.0 RBC 4.16 Hgb 11.0 Hct 34.9 MCV 83.9 MCH 26.5 MCHC 31.6 L RDW 14.1 Plt Count 167 MPV 9.2 Sodium 146 H Potassium 3.9 Chloride 116 H Carbon Dioxide 21 Anion Gap 8 BUN 32 H Creatinine 1.5 H Creat Clearance w eGFR 34.43 Random Glucose 117 H Calcium 9.0 Phosphorus 2.1 L Magnesium 2.1 Creatine Kinase 57 Troponin I < 0.02 TSH 1.37 Active Medications Generic Name Dose Route Start Last Admin Trade Name Freq PRN Reason Stop Dose Admin Heparin Sodium (Porcine) 5,000 unit 09/29/18 14:00 09/30/18 13:31 Heparin - SQ Not Given TID THOMAS Heparin Sodium (Porcine) 1,000 unit 09/30/18 14:21 Heparin - IVPUSH PRN PRN Heparin Heparin Sodium (Porcine) 5,000 unit 09/30/18 14:21 Heparin - IVPUSH PRN PRN Heparin Ertapenem 1 gm/ Sodium 50 mls @ 100 mls/hr 09/29/18 12:00 09/30/18 09:47 Chloride IVPB 100 mls/hr DAILY THOMAS Administration Dextrose/Sodium Chloride 1,000 mls @ 125 mls/hr 09/29/18 15:00 09/29/18 15:19 D5-1/2ns - IV 125 mls/hr ASDIR THOMAS Administration Famotidine/Sodium Chloride 20 mg in 50 mls @ 100 mls/hr 09/29/18 15:00 09:47 Pepcid 20 Mg Premixed Ivpb - IVPB 100 mls/hr BID THOMAS Administration Heparin Sodium/Dextrose 25,000 units in 500 mls @ 16 mls/hr 09/30/18 14:30 Heparin Infusion - IVPB TITR THOMAS Protocol 800 UNITS/HR Levothyroxine Sodium 100 mcg 09/30/18 07:00 09/30/18 06:33 Synthroid - PO 100 mcg DAILY@0700 THOMAS Administration [place] Carbonate 300 mg 09/30/18 10:00 09/30/18 09:46 Eskalith - PO 300 mg DAILY THOMAS Administration Metoprolol Tartrate 25 mg 09/30/18 12:00 09/30/18 13:30 Lopressor - PO 25 mg BID THOMAS Administration Metoprolol Tartrate 5 mg 09/30/18 11:49 09/30/18 13:45 Lopressor Injection - IVPUSH 5 mg Q4H PRN Administration HYPERTENSION Morphine Sulfate 4 mg 09/29/18 14:55 Morphine Sulfate IVPUSH Q3H PRN PAIN LEVEL 7 - 10 ASSESSMENT/PLAN: 67 y/o female with PMH of cholecystitis and bipolar disorder presented to the ED with abdominal pain and constipation since found to have a 5x4.3x3.4 oval shaped structure with air possible representing an inflamed diverticulum vs. a contained perforation #Possible diverticulitis v. perforation? -repeat CT scan done with contrast yesterday which shows a increase in amount of free air possible showing to be a contained perforation -surgery is on board; appreciate their recs -Ertapenem was started today -morphine and tylenol for pain control -LR @ 125mls/hr -patient has not had fever since last night; will continue to monitor -icechips and PO meds only #New onset Afib -patient has been having episodes of AFib with RVR -started metoprolol tartrate 25 BID with lopressor 5mg PRN -started Heparin drip for AC -tele monitoring #Bipolar Disorder -c/w with lithium #Hypothyroidism -c/w synthroid F/E/N LR @125mls/hr monitor electrolytes NPO except meds dipso: trasnfer to tele DVT PPX: Heparin drip Problem List - Problems (1) Abdominal pain Code(s): R10.9 - UNSPECIFIED ABDOMINAL PAIN Qualifiers: Abdominal location: unspecified location Qualified Code(s): R10.9 - Unspecified abdominal pain (2) Abnormal CT scan, sigmoid colon Code(s): R93.3 - ABNORMAL FINDINGS ON DX IMAGING OF PRT DIGESTIVE TRACT (3) Bipolar disorder Code(s): F31.9 - BIPOLAR DISORDER, UNSPECIFIED Qualifiers: Active/Remission status: in remission of unspecified degree Qualified Code( s): F31.70 - Bipolar disorder, currently in remission, most recent episode unspecified Visit type - Emergency Visit Emergency Visit: Yes ED Registration Date: 09/28/18 Care time: The patient presented to the Emergency Department on the above date and was hospitalized for further evaluation of their emergent condition. - New Patient This patient is new to me today: No - Critical Care Critical Care patient: No
[2018-09-30] MEDS: HEPARIN INFUSION - 25,000 UNITS/500 ML INFUS.BAG IVPB SCH (15:00)
[2018-09-30] MEDS: DEXTROSE 5%-0.45% SALINE 1,000 ML IV SCH (15:00)
--- NOTE | 2018-09-30 16:20 | CON.CARD ---
Consult Consult Specialty:: Cardiology Referred by:: Hospitalist Medicine Reason for Consultation:: Paroxysmal afib - History of Present Illness Chief Complaint: Abd pain History of Present Illness: 67 y/o F with PMH of cholecystitis, chronic constipation, Bipolar disorder, diastolic dysfunction, HTN, chol, hypothyroidism presented to the ED with two days of lower abdominal pain and constipation. Pt states that she tried taking generic miralax at home with no relief of her symptoms. She states that her pain is located mostly in the lower abdomen. She rates the pain an 8/10 and it does not radiate. Denies fevers, chills, shortness of breath, chest pain, nausea , vomiting, diarrhea, frequency, urgency, hematuria, rectal bleeding, and lightheadedness. CT scan shows diverticulitis with perforation w/o abscess. Noted to have episodes of PAF with RVR, reports fatigue, but denies chest pain, dyspnea, palpitations, near or true syncope, orthopnea, PND or LE edema. - History Source History Provided By: Patient Limitations to Obtaining History: No Limitations - Past Medical History DATABASE ARCHITECT: Yes: Migraine, Vertigo Cardio/Vascular: Yes: HTN, Hyperlipdemia Pulmonary: Yes: Asthma Gastrointestinal: Yes: Constipation, Hiatal Hernia Psych: Yes: Anxiety, Bipolar, Depression ENT: Yes: Allergic Rhinitis Endocrine: Yes: Hypothyroidism - Past Surgical History Past Surgical History: Yes: Cholecystectomy (laparoscopic), Colonoscopy, Hysterectomy (vaginal with ant/post repair) - Alcohol/Substance Use Hx Alcohol Use: Yes (social/occasional) History of Substance Use: reports: None - Smoking History Smoking history: Former smoker Have you smoked in the past 12 months: No If you are a former smoker, when did you quit?: 1980s - Social History Usual Living Arrangement: With Spouse ADL: Independent Home Medications - Allergies Allergies/Adverse Reactions: Allergies Allergy/AdvReac Type Severity Reaction Status Date / Time Penicillins Allergy Rash Verified 09/29/18 12:29 - Home Medications Home Medications: Ambulatory Orders Atorvastatin Ca [Lipitor] 5 mg PO HS 02/23/17 Levothyroxine [Synthroid -] 100 mcg PO DAILY 02/23/17 [place] Carbonate [Eskalith -] 300 mg PO DAILY 02/23/17 Meclizine HCl 12.5 mg PO BID PRN 02/23/17 Rizatriptan Benzoate [Maxalt] 10 mg PO PRN PRN 02/23/17 Loratadine [Claritin] 10 mg PO DAILY 09/27/18 Calcium Carb, Citrate/Vit D3 [Citracal + D ER Tablet] 1 each PO BID 09/29/18 Glucosa [place] 2Kcl/Chondroitin [place] [Glucosamine & Chondroitin Cap] 2 each PO DAILY 09/29/18 Oxybutynin Chloride 5 mg PO DAILY 09/29/18 Sodium Chloride [Saline Nasal [place]] 45 ml NS PRN PRN 09/29/18 Family Disease History - Family Disease History Family Disease History: CA: Sister (lymphoma at 70, alive at 75) Other Family History: multiple family members with hiatal hernia Review of Systems - Review of Systems Constitutional: reports: Weakness Gastrointestinal: reports: Abdominal Pain Vital Signs: Vital Signs Temperature 98.1 F 09/30/18 14:00 Pulse Rate 101 H 09/30/18 14:00 Respiratory Rate 20 09/30/18 09:00 Blood Pressure 114/79 09/30/18 14:00 O2 Sat by Pulse Oximetry (%) 95 09/30/18 09:00 Constitutional: Yes: No Distress, Calm, Thin Neck: Yes: Supple Respiratory: Yes: Regular, Diminished, On Nasal O2 Gastrointestinal: Yes: Soft, Hypoactive Bowel Sounds Cardiovascular: Yes: Tachycardia, Pulse Irregular JVD: No Carotid Bruit: No Heart Sounds: Yes: S1, S2 Edema: No - Other Data Labs, Other Data: CBC, BMP 09/30/18 05:30 09/30/18 05:30 Afib @ 155 Echo: Report Reviewed Ejection Fraction %: LVEF > or = 40 % Imaging - Results Cat Scan: Report Reviewed (Localized perforation and low grade pSBO) Problem List - Problems (1) Diverticulitis of large intestine with perforation without abscess or bleeding Code(s): K57.20 - DVTRCLI OF LG INT W PERFORATION AND ABSCESS W/O BLEEDING (2) Hyperlipidemia Code(s): E78.5 - HYPERLIPIDEMIA, UNSPECIFIED Qualifiers: Hyperlipidemia type: unspecified Qualified Code(s): E78.5 - Hyperlipidemia , unspecified (3) Hypertension Code(s): I10 - ESSENTIAL (PRIMARY) HYPERTENSION Qualifiers: Hypertension type: essential hypertension Qualified Code(s): I10 - Essential (primary) hypertension (4) Hypothyroidism Code(s): E03.9 - HYPOTHYROIDISM, UNSPECIFIED Qualifiers: Hypothyroidism type: unspecified Qualified Code(s): E03.9 - Hypothyroidism , unspecified (5) Paroxysmal atrial fibrillation Code(s): I48.0 - PAROXYSMAL ATRIAL FIBRILLATION Assessment/Plan 09/30/2018 Echo: Normal LV size and fxn LVEF 60-65%, mildly impaired LV compliance, normal RV fxn, normal atrial sizes, mild TR, trace-mild MR 1. Inflamed diverticulum vs contained perforation 2. paroxysmal afib with RVR [id number] 3. Hypertension 4. Hypothyroidism 5. Bipolar d/o 6, Diastolic dysfunction 7. Acute on CKD (pre-renal) P:1. Agree with Lopressor for rate-control and heparin gtt given elevated risk score pending possible surgical/IR intervention 2. Empiric abx course per C&S, analgesia as needed, bowel rest 3. IV hydration with monitor renal recovery and electrolytes 4. Thank you for consultative opportunity
--- NOTE | 2018-09-30 17:07 | PN ---
Teaching Attending Note Name of Resident: Yaima Baeza ATTENDING PHYSICIAN STATEMENT I saw and evaluated the patient. I reviewed the resident's note and discussed the case with the resident. I agree with the resident's findings and plan as documented. SUBJECTIVE:continues to have pain. requesting to eat. denies Cp, SOB, fever, chills, N/V/C/D noted to have multiple episodes of afib on the monitor with RVR with highest rate 160. currently in NSR OBJECTIVE: Last Vital Signs Temp Pulse Resp BP Pulse Ox 98.1 F 101 H 20 114/79 95 09/30/18 14:00 09/30/18 14:00 09/30/18 09:00 09/30/18 14:00 09/30/18 09:00 General NAD, +warm to touch CV S1 S2 + Lungs CTA B/L no wheezing/rales/rhonchi Abdomen +LLQ pain. +guarding. no BS not distended ASSESSMENT AND PLAN: 67yo F wtih PMH cholecystitis and bipolar presented with abdominal pain and constipation for [address] + 5.4x4.3x3.4cm pocket concerning for large inflammed diverticulum vs contained perforation 1. Sepsis due to suspected diverticulitis-afebrile. clinically improved. pain is more localized at htis time. cont NPO, IVF, ertapenem day 2. f/u Cx. 2. Suspected localized perforation- clinically stable. AXR done to look for perforation as pt pain was reported as worse. howver now seems improved and more localized. surgery on board. no indication for intervention at this time. 3. New onset afib- seen on ekg and pt was transferred to [facility] for continuous cardiac monitoring. will start metoprolol 25mg BID. metoprolol prn HR >120. CHADsVasc >2. will start hep ggt until more stable and diet is advanced. will need NOAC. check echo. cardio consult. 4. MONIKA- likely infection and dehydration. continuing to trend up. cont with ivf. consider u/s if worsens however nothing see on CT imaging for obstruction or hydro. avoid nephrotoxic agents 5. dilated CBD- repeat imaging. no pain in RUQ. will see on repeat imaging. consider dedicated study if unrevealing. LFT are normal so doubt obstruction 6. Bipolar- continue home medication 7. DVT ppx- hep sq
[2018-09-30] MEDS ORDERED: dilTIAZem HCL 50 MG/10 ML - 10 ML VIAL IVPUSH PRN (17:42)
[2018-09-30] MEDS: METOPROLOL TARTRATE 5 MG/5 ML VIAL IVPUSH PRN (18:17)
[2018-09-30] MEDS ORDERED: morphine SULFATE 4 MG/ML VIAL IVPUSH PRN (21:34)
[2018-10-01] MEDS: METOPROLOL TARTRATE 5 MG/5 ML VIAL IVPUSH PRN (01:30)
[2018-10-01] MEDS: LEVOTHYROXINE NA 100 MCG TABLET (FP) PO SCH (06:48)
[2018-10-01 07:45] LABS: HEMATOCRIT 37.5 % (32.4-45.2); HEMOGLOBIN 11.7 GM/dL (10.7-15.3); MCH 26.2 pg (25.7-33.7); MCHC 31.3 g/dl (32.0-36.0); MEAN CELL VOLUME 83.7 fl (80-96); MEAN PLT VOLUME 9.6 fl (7.5-11.1); PLATELET COUNT 209 K/MM3 (134-434); RBC 4.48 M/mm3 (3.60-5.2); RDW 14.5 % (11.6-15.6); WHITE BLOOD COUNT 7.7 K/mm3 (4.0-10.0)
[2018-10-01 08:16] LABS: ANION GAP 10 MMOL/L (8-16); BLOOD UREA NITROGEN 30 mg/dL (7-18); CALCIUM 8.7 mg/dL (8.5-10.1); CHLORIDE 117 mmol/L (98-107); CO2 20 mmol/L (21-32); CREATININE 1.5 mg/dL (0.55-1.3); GLUCOSE,RANDOM 127 mg/dL (74-106); MAGNESIUM 2.1 mg/dL (1.8-2.4); PHOSPHOROUS 2.2 mg/dL (2.5-4.9); POTASSIUM 3.5 mmol/L (3.5-5.1); SODIUM 148 mmol/L (136-145)
[2018-10-01] MEDS ORDERED: NAPH,MB-DB/K PH,MBDB POWDER PACKET PO ONE (09:19)
[2018-10-01] MEDS ORDERED: PT OWN MED DRAWER 7, Y5N ONE (09:25)
[2018-10-01] MEDS: FAMOTIDINE 20 MG/50 ML IVPB 20 MG/50 ML MG IVPB SCH ×2 (09:42→22:27)
[2018-10-01] MEDS: ERTAPENEM SODIUM 1 GM in SODIUM CHLORIDE 50 ML IVPB SCH (09:42)
[2018-10-01] MEDS: LITHIUM CARBONATE 300 MG CAPSULE (FP) PO SCH (09:42)
[2018-10-01] MEDS: METOPROLOL TARTRATE 25 MG TABLET (FP) PO SCH (09:42)
[2018-10-01] MEDS ORDERED: ACETAMINOPHEN 1000 MG/100 ML VIAL (NON FORMULARY) IVPB PRN (10:06)
[2018-10-01] MEDS ORDERED: D5-1/2NS+20 MEQ KCL - 20 MEQ/1,000 ML INFUS.BAG IV SCH (11:15)
--- NOTE | 2018-10-01 11:16 | PN ---
Progress Note, Physician History of Present Illness: Pt with sigmoid diverticulitis, with f/u CT 09/28 showing slightly increased inflammation, fluid and locules of air in the region of microperforation, though contrast had not yet reached this area. AXR the next day showed contrast in proximal colon; she has not had BM yet, but did pass a little gas. She is seen and examined sitting up in chair with present, on NC O2. She is taking ice chips. She is on Ertapenem. Pain is better; tylenol was changed to prn, morphine d/c'd - it made her confused. She is weak per nurses and herself, used commode instead of walking to bathroom. Effort on IS is weak - cannot get to 500ml, short/shallow breaths. She has been in afib with RVR periodically, but is currently in sinus. Cardiology is following. - Current Medication List Current Medications: Active Medications Acetaminophen (Ofirmev Injection -) 1,000 mg IVPB Q8H PRN PRN Reason: PAIN Diltiazem HCl (Cardizem Injection -) 10 mg IVPUSH Q4H PRN PRN Reason: TACHYCARDIA Last Admin: 09/30/18 22:13 Dose: 10 mg Heparin Sodium (Porcine) (Heparin -) 1,000 unit IVPUSH PRN PRN PRN Reason: Heparin Heparin Sodium (Porcine) (Heparin -) 5,000 unit IVPUSH PRN PRN PRN Reason: Heparin Last Admin: 09/30/18 18:48 Dose: 5,000 unit Ertapenem 1 gm/ Sodium (Chloride) 50 mls @ 100 mls/hr IVPB DAILY [facility] Last Admin: 10/01/18 09:42 Dose: 100 mls/hr Famotidine/Sodium Chloride (Pepcid 20 Mg Premixed Ivpb -) 20 mg in 50 mls @ 100 mls/hr IVPB BID [facility]OM[facility] Last Admin: 10/01/18 09:42 Dose: 100 mls/hr Heparin Sodium/Dextrose (Heparin Infusion -) 25,000 units in 500 mls @ 16 mls/ hr IVPB TITR [facility]; Protocol Last Titration: 09/30/18 18:49 Dose: 950 units/hr, 19 mls/hr Potassium Chloride/Dextrose/Sod Cl (D5-1/2ns+20 Meq Kcl -) 20 meq in 1,000 mls @ 125 mls/hr IV ASDIR [facility] Levothyroxine Sodium (Synthroid -) 100 mcg PO DAILY@0700 [facility] Last Admin: 10/01/18 06:48 Dose: 100 mcg [place] Carbonate (Eskalith -) 300 mg PO DAILY [facility] Last Admin: 10/01/18 09:42 Dose: 300 mg Metoprolol Tartrate (Lopressor Injection -) 5 mg IVPUSH Q4H PRN PRN Reason: TACHYCARDIA Last Admin: 10/01/18 01:30 Dose: 5 mg Metoprolol Tartrate (Lopressor -) 50 mg PO BID [facility] - Objective Vital Signs: Vital Signs Temperature 98.4 F 10/01/18 06:00 Pulse Rate 91 H 10/01/18 06:00 Respiratory Rate 18 10/01/18 06:00 Blood Pressure 121/77 10/01/18 06:00 O2 Sat by Pulse Oximetry (%) 95 09/30/18 21:00 Constitutional: Yes: Well Nourished, No Distress, Calm Eyes: Yes: Conjunctiva Clear, EOM Intact HENT: Yes: Atraumatic, Normocephalic Respiratory: Yes: On Nasal O2, Other (short, shallow breaths; still with occasional pauses while speaking to breathe) Gastrointestinal: Yes: Soft, Distention (mild), Tenderness (less LLQ) Musculoskeletal: No: Joint Stiffness, Joint Swelling Extremities: No: Cool, Cyanosis Integumentary: No: Jaundice, Rash Neurological: Yes: Alert, Oriented, Confusion (per , not quite at baseline - seems fuzzy on some things, forgetful), Unsteady Gait (per nursing), Weakness (overall - she states she had trouble scooting back/sitting up in chair , for instance) Labs: CBC, BMP 10/01/18 06:20 10/01/18 06:20 Na, Cl rising K down BUN/Cr still up - ....Imaging X-ray: Pending Problem List - Problems (1) Diverticulitis of large intestine with perforation without abscess or bleeding Assessment/Plan: continue NPO except essential meds, IV hydration, ok for ice chips no bowel function yet, will get AXR to see where contrast is serial exams trend labs, lithium level and TSH normal monitor K+, add to fluids continue Ertapenem pain better - tylenol changed to prn by primary team, morphine off encourage incentive spirometer, pt with weak effort will order physical therapy to see following with you Code(s): K57.20 - DVTRCLI OF LG INT W PERFORATION AND ABSCESS W/O BLEEDING (2) Suprapubic pain Assessment/Plan: improved/resolved - some residual tenderness Code(s): R10.2 - PELVIC AND PERINEAL PAIN (3) Constipation Code(s): K59.00 - CONSTIPATION, UNSPECIFIED Qualifiers: Constipation type: other constipation type Qualified Code(s): K59.09 - Other constipation (4) Paroxysmal atrial fibrillation Assessment/Plan: on telemetry echo results noted - mild diastolic dysfunction but normal EF cardiology consultation noted - now on heparin drip keep lytes normal pain control Code(s): I48.0 - PAROXYSMAL ATRIAL FIBRILLATION (5) Bipolar disorder Assessment/Plan: on home lithium level ok Code(s): F31.9 - BIPOLAR DISORDER, UNSPECIFIED Qualifiers: Active/Remission status: in remission of unspecified degree Qualified Code( s): F31.70 - Bipolar disorder, currently in remission, most recent episode unspecified (6) Hypertension Assessment/Plan: monitor, IV meds prn Code(s): I10 - ESSENTIAL (PRIMARY) HYPERTENSION Qualifiers: Hypertension type: essential hypertension Qualified Code(s): I10 - Essential (primary) hypertension (7) Hyperlipidemia Code(s): E78.5 - HYPERLIPIDEMIA, UNSPECIFIED Qualifiers: Hyperlipidemia type: unspecified Qualified Code(s): E78.5 - Hyperlipidemia , unspecified (8) Hypothyroidism Assessment/Plan: continue synthroid tsh normal Code(s): E03.9 - HYPOTHYROIDISM, UNSPECIFIED Qualifiers: Hypothyroidism type: unspecified Qualified Code(s): E03.9 - Hypothyroidism , unspecified (9) Hiatal hernia without gangrene or obstruction Code(s): K44.9 - DIAPHRAGMATIC HERNIA WITHOUT OBSTRUCTION OR GANGRENE
--- NOTE | 2018-10-01 11:45 | PN ---
Progress Note, Physician Chief Complaint: Events noted Currently in sinus rhythm with APCs History of Present Illness: Patient was seen and examined. Awake and alert, but with some confusion. Chart was reviewed Denies chest pain or SOB - Current Medication List Current Medications: Active Medications Acetaminophen (Ofirmev Injection -) 1,000 mg IVPB Q8H PRN PRN Reason: PAIN Diltiazem HCl (Cardizem Injection -) 10 mg IVPUSH Q4H PRN PRN Reason: TACHYCARDIA Last Admin: 09/30/18 22:13 Dose: 10 mg Heparin Sodium (Porcine) (Heparin -) 1,000 unit IVPUSH PRN PRN PRN Reason: Heparin Heparin Sodium (Porcine) (Heparin -) 5,000 unit IVPUSH PRN PRN PRN Reason: Heparin Last Admin: 09/30/18 18:48 Dose: 5,000 unit Ertapenem 1 gm/ Sodium (Chloride) 50 mls @ 100 mls/hr IVPB DAILY [facility] Last Admin: 10/01/18 09:42 Dose: 100 mls/hr Famotidine/Sodium Chloride (Pepcid 20 Mg Premixed Ivpb -) 20 mg in 50 mls @ 100 mls/hr IVPB BID [facility] Last Admin: 10/01/18 09:42 Dose: 100 mls/hr Heparin Sodium/Dextrose (Heparin Infusion -) 25,000 units in 500 mls @ 16 mls/ hr IVPB TITR [facility]; Protocol Last Titration: 09/30/18 18:49 Dose: 950 units/hr, 19 mls/hr Potassium Chloride/Dextrose/Sod Cl (D5-1/2ns+20 Meq Kcl -) 20 meq in 1,000 mls @ 125 mls/hr IV ASDIR [facility] Last Admin: 10/01/18 11:11 Dose: 125 mls/hr Levothyroxine Sodium (Synthroid -) 100 mcg PO DAILY@0700 [facility] Last Admin: 10/01/18 06:48 Dose: 100 mcg [place] Carbonate (Eskalith -) 300 mg PO DAILY [facility] Last Admin: 10/01/18 09:42 Dose: 300 mg Metoprolol Tartrate (Lopressor Injection -) 5 mg IVPUSH Q4H PRN PRN Reason: TACHYCARDIA Last Admin: 10/01/18 01:30 Dose: 5 mg Metoprolol Tartrate (Lopressor -) 50 mg PO BID [facility]OM[facility] - Objective Vital Signs: Vital Signs Temperature 98.4 F 10/01/18 06:00 Pulse Rate 91 H 10/01/18 06:00 Respiratory Rate 18 10/01/18 06:00 Blood Pressure 121/77 10/01/18 06:00 O2 Sat by Pulse Oximetry (%) 95 09/30/18 21:00 Eyes: Yes: PERRL HENT: Yes: Atraumatic Neck: Yes: Supple Cardiovascular: Yes: Pulse Irregular, S1, S2 Respiratory: Yes: CTA Bilaterally Gastrointestinal: Yes: Distention. No: Tenderness Edema: No Additional Findings/Remarks: - Review of Systems Constitutional: denies: Chills, Fever Cardiovascular: denies: Chest Pain, Shortness of Breath. denies: Palpitations Respiratory: denies: Cough, Orthopnea, SOB, SOB on Exertion. denies: Hemoptysis , PND Gastrointestinal: (+) Abdominal Pain, denies: Constipation, Melena, Nausea, Rectal Bleeding, Vomiting Genitourinary: denies: Dysuria, Hematuria Neurological: denies: Dizziness, Headache, Seizure, Syncope Labs: CBC, BMP 10/01/18 06:20 10/01/18 06:20 Problem List - Problems (1) Diverticulitis of large intestine with perforation without abscess or bleeding Code(s): K57.20 - DVTRCLI OF LG INT W PERFORATION AND ABSCESS W/O BLEEDING (2) Hyperlipidemia Code(s): E78.5 - HYPERLIPIDEMIA, UNSPECIFIED Qualifiers: Hyperlipidemia type: unspecified Qualified Code(s): E78.5 - Hyperlipidemia , unspecified (3) Hypertension Code(s): I10 - ESSENTIAL (PRIMARY) HYPERTENSION Qualifiers: Hypertension type: essential hypertension Qualified Code(s): I10 - Essential (primary) hypertension (4) Hypothyroidism Code(s): E03.9 - HYPOTHYROIDISM, UNSPECIFIED Qualifiers: Hypothyroidism type: unspecified Qualified Code(s): E03.9 - Hypothyroidism , unspecified (5) Paroxysmal atrial fibrillation Code(s): I48.0 - PAROXYSMAL ATRIAL FIBRILLATION Assessment/Plan 1. Inflamed diverticulum vs contained perforation 2. Paroxysmal AF with RVR [id number] score of 3 3. Hypertension 4. Hypothyroidism 5. Bipolar disorder 6. Diastolic dysfunction 7. Acute on CKD (pre-renal) PLAN: 1. Continue Heparin drip before starting care home anticoagulation. Surgical input noted. Continue Lopressor for rate control 2. Empiric antibiotic course 3. IV hydration with monitoring renal function and electrolytes 4. Further surgical input to follow and to decide whether she needs further surgical or IR intervention Guarded Gonzalez Akins MD
--- NOTE | 2018-10-01 14:04 | PN ---
Physical Exam: SUBJECTIVE: Patient seen and examined at bedside. patient states her pain is slightly better she refuses morphine but states that the tylenol is helping her. she is still very anxious- she denies any CP/SOB/N/V, she has passed gas but not had any bowel movements yet. OBJECTIVE: Vital Signs Period Temp Pulse Resp BP Sys/Choi Pulse Ox Last 24 Hr 97.6 F-99.7 F 80-146 18-20 114-143/69-90 95-95 GENERAL: The patient is awake, alert, and fully oriented, EYES: no scleral icterus NECK: no JVD , no lymphadenopathy LUNGS: slight crackles, HEART: tachycardic S1, S2 without murmur, rub or gallop. ABDOMEN: soft; tenderness upon palpation, hypoactive bowel sounds EXTREMITIES: 2+ pulses, warm, well-perfused, no edema. SKIN: Warm, dry, normal turgor, no rashes or lesions noted Laboratory Results - last 24 hr 09/29/18 09/30/18 10/01/18 15:15 17:00 01:30 WBC RBC Hgb Hct MCV MCH MCHC RDW Plt Count MPV PTT (Actin FS) 32.3 52.4 H Sodium Potassium Chloride Carbon Dioxide Anion Gap BUN Creatinine Creat Clearance w eGFR Random Glucose Calcium Phosphorus Magnesium [place] 0.8 10/01/18 10/01/18 06:20 06:20 WBC 7.7 RBC 4.48 Hgb 11.7 Hct 37.5 MCV 83.7 MCH 26.2 MCHC 31.3 L RDW 14.5 Plt Count 209 D MPV 9.6 PTT (Actin FS) Sodium 148 H Potassium 3.5 Chloride 117 H Carbon Dioxide 20 L Anion Gap 10 BUN 30 H Creatinine 1.5 H Creat Clearance w eGFR 34.43 Random Glucose 127 H Calcium 8.7 Phosphorus 2.2 L Magnesium 2.1 [place] Active Medications Generic Name Dose Route Start Last Admin Trade Name Freq PRN Reason Stop Dose Admin Acetaminophen 1,000 mg 10/01/18 10:06 Ofirmev Injection - IVPB Q8H PRN PAIN Diltiazem HCl 10 mg 09/30/18 17:42 09/30/18 22:13 Cardizem Injection - IVPUSH 10 mg Q4H PRN Administration TACHYCARDIA Heparin Sodium (Porcine) 1,000 unit 09/30/18 14:21 Heparin - IVPUSH PRN PRN Heparin Heparin Sodium (Porcine) 5,000 unit 09/30/18 14:21 09/30/18 18:48 Heparin - IVPUSH 5,000 unit PRN PRN Administration Heparin Ertapenem 1 gm/ Sodium 50 mls @ 100 mls/hr 09/29/18 12:00 10/01/18 09:42 Chloride IVPB 100 mls/hr DAILY [facility] Administration Famotidine/Sodium Chloride 20 mg in 50 mls @ 100 mls/hr 09/29/18 15:00 09:42 Pepcid 20 Mg Premixed Ivpb - IVPB 100 mls/hr BID [facility]OMAS Administration Heparin Sodium/Dextrose 25,000 units in 500 mls @ 16 mls/hr 09/30/18 14:30 18:49 Heparin Infusion - IVPB 950 units/hr TITR [facility]OM[facility] 19 mls/hr Titration Protocol 800 UNITS/HR Potassium Chloride/Dextrose/Sod Cl 20 meq in 1,000 mls @ 125 mls/hr 10/01/18 11:15 10/01/18 11:11 D5-1/2ns+20 Meq Kcl - IV 125 mls/hr ASDIR [facility]OMAS Administration Levothyroxine Sodium 100 mcg 09/30/18 07:00 10/01/18 06:48 Synthroid - PO 100 mcg DAILY@0700 [facility] Administration [place] Carbonate 300 mg 09/30/18 10:00 10/01/18 09:42 Eskalith - PO 300 mg DAILY [facility] Administration Metoprolol Tartrate 5 mg 09/30/18 17:43 10/01/18 01:30 Lopressor Injection - IVPUSH 5 mg Q4H PRN Administration TACHYCARDIA Metoprolol Tartrate 50 mg 10/01/18 22:00 Lopressor - PO BID THOMAS ASSESSMENT/PLAN: 67 y/o female with PMH of cholecystitis and bipolar disorder presented to the ED with abdominal pain and constipation since found to have a 5x4.3x3.4 oval shaped structure with air possible representing an inflamed diverticulum vs. a contained perforation #Possible diverticulitis v. perforation? -repeat CT scan done with contrast yesterday which shows a increase in amount of free air possible showing to be a contained perforation -Abdominal XRAY done this morning to see where contrast is as patient has not had a BM yet -surgery is on board; appreciate their recs -Ertapenem day 3 tylenol for pain control -LR @ 125mls/hr -patient has not had fever since last night; will continue to monitor -ice chips and PO meds only #New onset Afib -patient has been having episodes of AFib with RVR -metoprolol tartrate 50 BID with lopressor 5mg PRN -started Heparin drip for AC -tele monitoring -cardio on board #Bipolar Disorder -c/w with lithium #Hypothyroidism -c/w synthroid F/E/N LR @125mls/hr monitor electrolytes NPO except meds and ice chips DVT PPX: Heparin drip Problem List - Problems (1) Abdominal pain Code(s): R10.9 - UNSPECIFIED ABDOMINAL PAIN Qualifiers: Abdominal location: unspecified location Qualified Code(s): R10.9 - Unspecified abdominal pain (2) Abnormal CT scan, sigmoid colon Code(s): R93.3 - ABNORMAL FINDINGS ON DX IMAGING OF PRT DIGESTIVE TRACT (3) Bipolar disorder Code(s): F31.9 - BIPOLAR DISORDER, UNSPECIFIED Qualifiers: Active/Remission status: in remission of unspecified degree Qualified Code( s): F31.70 - Bipolar disorder, currently in remission, most recent episode unspecified Visit type - Emergency Visit Emergency Visit: Yes ED Registration Date: 09/28/18 Care time: The patient presented to the Emergency Department on the above date and was hospitalized for further evaluation of their emergent condition. - New Patient This patient is new to me today: No - Critical Care Critical Care patient: No
[2018-10-01] MEDS: HEPARIN INFUSION - 25,000 UNITS/500 ML INFUS.BAG IVPB SCH (14:30)
--- NOTE | 2018-10-01 16:02 | PN ---
Teaching Attending Note Name of Resident: Yaima Baeza ATTENDING PHYSICIAN STATEMENT I saw and evaluated the patient. I reviewed the resident's note and discussed the case with the resident. I agree with the resident's findings and plan as documented with exceptions below. SUBJECTIVE: Patient seen and examined. OBJECTIVE: Vital Signs Period Temp Pulse Resp BP Sys/Choi Pulse Ox Last 24 Hr 97.6 F-99.7 F 80-146 18-22 119-143/69-90 95-95 Intake & Output 09/28/18 09/29/18 09/30/18 10/01/18 23:59 23:59 23:59 23:59 Intake Total 1100 3100 2870 3100 Output Total 200 500 Balance 1100 3100 2670 2600 Weight 147 lb 11.355 oz General: mildly tachypneic on exam, able to talk in full sentences Chest: no rales or wheezing appreciated Abdomen: soft, distended, Tenderness in LLQ, Extremities: no edema Home Medications Medication Instructions Recorded Atorvastatin Ca [Lipitor] 5 mg PO HS 02/23/17 Levothyroxine [Synthroid -] 100 mcg PO DAILY 02/23/17 [place] Carbonate [Eskalith -] 300 mg PO DAILY 02/23/17 Meclizine HCl 12.5 mg PO BID PRN 02/23/17 Rizatriptan Benzoate [Maxalt] 10 mg PO PRN PRN 02/23/17 Loratadine [Claritin] 10 mg PO DAILY 09/27/18 Calcium Carb, Citrate/Vit D3 1 each PO BID 09/29/18 [Citracal + D ER Tablet] Glucosa Teixeira 2Kcl/Chondroitin Teix[place]ira 2 each PO DAILY 09/29/18 [Glucosamine & Chondroitin Cap] Oxybutynin Chloride 5 mg PO DAILY 09/29/18 Sodium Chloride [Saline Nasal 45 ml NS PRN PRN 09/29/18 [place]] Active Medications Acetaminophen (Ofirmev Injection -) 1,000 mg IVPB Q8H PRN PRN Reason: PAIN Diltiazem HCl (Cardizem Injection -) 10 mg IVPUSH Q4H PRN PRN Reason: TACHYCARDIA Last Admin: 09/30/18 22:13 Dose: 10 mg Heparin Sodium (Porcine) (Heparin -) 1,000 unit IVPUSH PRN PRN PRN Reason: Heparin Heparin Sodium (Porcine) (Heparin -) 5,000 unit IVPUSH PRN PRN PRN Reason: Heparin Last Admin: 09/30/18 18:48 Dose: 5,000 unit Ertapenem 1 gm/ Sodium (Chloride) 50 mls @ 100 mls/hr IVPB DAILY [facility] Last Admin: 10/01/18 09:42 Dose: 100 mls/hr Famotidine/Sodium Chloride (Pepcid 20 Mg Premixed Ivpb -) 20 mg in 50 mls @ 100 mls/hr IVPB BID [facility] Last Admin: 10/01/18 09:42 Dose: 100 mls/hr Heparin Sodium/Dextrose (Heparin Infusion -) 25,000 units in 500 mls @ 16 mls/ hr IVPB TITR [facility]; Protocol Last Titration: 09/30/18 18:49 Dose: 950 units/hr, 19 mls/hr Potassium Chloride/Dextrose/Sod Cl (D5-1/2ns+20 Meq Kcl -) 20 meq in 1,000 mls @ 125 mls/hr IV ASDIR [facility] Last Admin: 10/01/18 11:11 Dose: 125 mls/hr Levothyroxine Sodium (Synthroid -) 100 mcg PO DAILY@0700 [facility] Last Admin: 10/01/18 06:48 Dose: 100 mcg [place] Carbonate (Eskalith -) 300 mg PO DAILY [facility] Last Admin: 10/01/18 09:42 Dose: 300 mg Metoprolol Tartrate (Lopressor Injection -) 5 mg IVPUSH Q4H PRN PRN Reason: TACHYCARDIA Last Admin: 10/01/18 01:30 Dose: 5 mg Metoprolol Tartrate (Lopressor -) 50 mg PO BID [facility] Laboratory Results - last 24 hr 09/29/18 09/30/18 10/01/18 15:15 17:00 01:30 WBC RBC Hgb Hct MCV MCH MCHC RDW Plt Count MPV PTT (Actin FS) 32.3 52.4 H Sodium Potassium Chloride Carbon Dioxide Anion Gap BUN Creatinine Creat Clearance w eGFR Random Glucose Calcium Phosphorus Magnesium [place] 0.8 10/01/18 10/01/18 06:20 06:20 WBC 7.7 RBC 4.48 Hgb 11.7 Hct 37.5 MCV 83.7 MCH 26.2 MCHC 31.3 L RDW 14.5 Plt Count 209 D MPV 9.6 PTT (Actin FS) Sodium 148 H Potassium 3.5 Chloride 117 H Carbon Dioxide 20 L Anion Gap 10 BUN 30 H Creatinine 1.5 H Creat Clearance w eGFR 34.43 Random Glucose 127 H Calcium 8.7 Phosphorus 2.2 L Magnesium 2.1 [place] ASSESSMENT AND PLAN: 67yo F wtih PMH cholecystitis and bipolar presented with abdominal pain and constipation for [address] + 5.4x4.3x3.4cm pocket concerning for large inflammed diverticulum vs contained perforation, found with new onset Afib with RVR. -Sepsis due suspect sigmoid diverticulitis with localized perforation -New onset Afib with RVR -Tachypnea, ?CHF vs splinting from abdominal symptoms/distension -Hypokalemia -MONKIA, cr rising, ?hypovolumia/sepsis, r/o retention -Dilated CBD, asymptomatic -Bipolar disorder -Plan: Ertapenem. Surgery/ID input noted. Serial abdominal exams. Advance PO per surgery. D/c morphine. Tylenol IV prn. CXR, retrieve abdominal xray results. Decrease IVF to 75 ml/hr, monitor volume status and vitals closely. Cardiology input noted. 2D echo reviewed. Increase metoprolol to 50 mg BID for now. Heparin drip for now till surgical concerns resolved. CHADSVasc 2 for now. Monitor LFTs, hold off on further imaging. COntinue lithium, levels therapeutic DVTPPX heparin drip Dispo pending clinical improvement Plan discussed with patient and nursing in detail, all questions answered.
[2018-10-01] MEDS ORDERED: D5-1/4NS+20 MEQ KCL - 20 MEQ/1,000 ML INFUS.BAG IV SCH (16:15)
[2018-10-01] MEDS: D5-1/4NS+20 MEQ KCL - 20 MEQ/1,000 ML INFUS.BAG IV SCH ×2 (17:57→18:03)
[2018-10-01] MEDS ORDERED: SODIUM CHLORIDE 1,000 ML IV STA ×2 (21:44→22:56)
[2018-10-01 22:18] LABS: HEMATOCRIT 39.9 % (32.4-45.2); HEMOGLOBIN 13.4 GM/dL (10.7-15.3); MCH 27.9 pg (25.7-33.7); MCHC 33.7 g/dl (32.0-36.0); MEAN CELL VOLUME 82.9 fl (80-96); MEAN PLT VOLUME 9.1 fl (7.5-11.1); PLATELET COUNT 269 K/MM3 (134-434); RBC 4.81 M/mm3 (3.60-5.2); WHITE BLOOD COUNT 8.9 K/mm3 (4.0-10.0)
[2018-10-01] MEDS: METOPROLOL TARTRATE 50 MG TABLET (FP) PO SCH (22:27)
[2018-10-01 22:52] LABS: ALLENS TEST POSITIVE; ARTERIAL BLD GAS O2 SATURATION 95.9 % (90-98.9); ARTERIAL BLOOD GAS BASE EXCESS -2.4 meq/l (-2-2); ARTERIAL BLOOD GAS PCO2 36.5 mmHg (35-45); ARTERIAL BLOOD GAS PO2 82.6 mmHg (80-100); ARTERIAL BLOOD GAS pH 7.39 (7.35-7.45)
[2018-10-01 23:00] LABS: ANION GAP 8 MMOL/L (8-16); BLOOD UREA NITROGEN 27 mg/dL (7-18); CALCIUM 9.5 mg/dL (8.5-10.1); CHLORIDE 116 mmol/L (98-107); CO2 25 mmol/L (21-32); CREATININE 1.4 mg/dL (0.55-1.3); GLUCOSE,RANDOM 111 mg/dL (74-106); N-TERMINAL BNP 6110.2 pg/ml (5-125); POTASSIUM 3.6 mmol/L (3.5-5.1); SODIUM 149 mmol/L (136-145)
[2018-10-01] MEDS: LACTATED RINGERS SOLUTION 1,000 ML/1,000 ML INFUS.BAG IV SCH (23:21)
[2018-10-02] MEDS: LEVOTHYROXINE NA 100 MCG TABLET (FP) PO SCH (06:05)
[2018-10-02 07:19] LABS: ALBUMIN 1.9 g/dl (3.4-5.0); ALK PHOS 68 U/L (45-117); ANION GAP 6 MMOL/L (8-16); BILIRUBIN,DIRECT 0.1 mg/dL (0.0-0.2); BILIRUBIN,TOTAL 0.3 mg/dL (0.2-1); BLOOD UREA NITROGEN 29 mg/dL (7-18); CHLORIDE 118 mmol/L (98-107); CO2 24 mmol/L (21-32); CREATININE 1.2 mg/dL (0.55-1.3); GLUCOSE,RANDOM 116 mg/dL (74-106); MAGNESIUM 2.1 mg/dL (1.8-2.4); PHOSPHOROUS 3.6 mg/dL (2.5-4.9); POTASSIUM 3.7 mmol/L (3.5-5.1); SGOT/AST 21 U/L (15-37); SGPT/ALT 22 U/L (13-61); SODIUM 149 mmol/L (136-145)
[2018-10-02] MEDS: FAMOTIDINE 20 MG/50 ML IVPB 20 MG/50 ML MG IVPB SCH ×2 (09:15→21:38)
[2018-10-02] MEDS: METOPROLOL TARTRATE 50 MG TABLET (FP) PO SCH (09:15)
[2018-10-02] MEDS: LITHIUM CARBONATE 300 MG CAPSULE (FP) PO SCH (09:15)
[2018-10-02] MEDS: LACTATED RINGERS SOLUTION 1,000 ML/1,000 ML INFUS.BAG IV SCH ×2 (09:16→21:36)
[2018-10-02 10:02] LABS: HEMATOCRIT 38.9 % (32.4-45.2); HEMOGLOBIN 12.2 GM/dL (10.7-15.3); MCH 26.4 pg (25.7-33.7); MCHC 31.3 g/dl (32.0-36.0); MEAN CELL VOLUME 84.5 fl (80-96); MEAN PLT VOLUME 9.5 fl (7.5-11.1); PLATELET COUNT 223 K/MM3 (134-434); RDW 14.8 % (11.6-15.6); WHITE BLOOD COUNT 8.9 K/mm3 (4.0-10.0)
--- NOTE | 2018-10-02 10:02 | PN ---
Progress Note, Physician History of Present Illness: NGT placed for abd distension, CT scan shows increased pneumoperitoneum and worsening pSBO, planned for exp lap. Remains in SR on telemetry. - Current Medication List Current Medications: Active Medications Acetaminophen (Ofirmev Injection -) 1,000 mg IVPB Q8H PRN PRN Reason: PAIN Diltiazem HCl (Cardizem Injection -) 10 mg IVPUSH Q4H PRN PRN Reason: TACHYCARDIA Last Admin: 09/30/18 22:13 Dose: 10 mg Heparin Sodium (Porcine) (Heparin -) 1,000 unit IVPUSH PRN PRN PRN Reason: Heparin Heparin Sodium (Porcine) (Heparin -) 5,000 unit IVPUSH PRN PRN PRN Reason: Heparin Last Admin: 09/30/18 18:48 Dose: 5,000 unit Ertapenem 1 gm/ Sodium (Chloride) 50 mls @ 100 mls/hr IVPB DAILY [facility] Last Admin: 10/01/18 09:42 Dose: 100 mls/hr Famotidine/Sodium Chloride (Pepcid 20 Mg Premixed Ivpb -) 20 mg in 50 mls @ 100 mls/hr IVPB BID [facility] Last Admin: 10/02/18 09:15 Dose: 100 mls/hr Heparin Sodium/Dextrose (Heparin Infusion -) 25,000 units in 500 mls @ 16 mls/ hr IVPB TITR [facility]; Protocol Last Admin: 10/01/18 14:30 Dose: 950 units/hr, 19 mls/hr Lactated Ringer's (Lactated Ringers Solution) 1,000 ml in 1,000 mls @ 125 mls/ hr IV ASDIR [facility] Last Admin: 10/02/18 09:16 Dose: 125 mls/hr Levothyroxine Sodium (Synthroid -) 100 mcg PO DAILY@0700 [facility] Last Admin: 10/02/18 06:05 Dose: Not Given Levothyroxine Sodium (Synthroid Injection -) 50 mcg IVPUSH DAILY [facility] [place] Carbonate (Eskalith -) 300 mg PO DAILY [facility] Last Admin: 10/02/18 09:15 Dose: Not Given Metoprolol Tartrate (Lopressor Injection -) 5 mg IVPUSH Q4H PRN PRN Reason: TACHYCARDIA Last Admin: 10/01/18 01:30 Dose: 5 mg Metoprolol Tartrate (Lopressor -) 50 mg PO BID [facility] Last Admin: 10/02/18 09:15 Dose: Not Given - Objective Vital Signs: Vital Signs Temperature 97.4 F L 10/02/18 06:00 Pulse Rate 100 H 10/02/18 06:00 Respiratory Rate 19 10/02/18 06:00 Blood Pressure 142/83 10/02/18 06:00 O2 Sat by Pulse Oximetry (%) 98 10/01/18 21:00 Constitutional: Yes: No Distress, Calm Neck: Yes: Supple Cardiovascular: Yes: Regular Rate and Rhythm Respiratory: Yes: Regular, Diminished, On Nasal O2 Gastrointestinal: Yes: Distention, Hypoactive Bowel Sounds, Tenderness Edema: No Labs: CBC, BMP 10/02/18 05:30 - ....Imaging EKG: Report Reviewed (Tele: NSR) Problem List - Problems (1) Diverticulitis of large intestine with perforation without abscess or bleeding Code(s): K57.20 - DVTRCLI OF LG INT W PERFORATION AND ABSCESS W/O BLEEDING (2) Hyperlipidemia Code(s): E78.5 - HYPERLIPIDEMIA, UNSPECIFIED Qualifiers: Qualified Code(s): E78.5 - Hyperlipidemia, unspecified (3) Hypertension Code(s): I10 - ESSENTIAL (PRIMARY) HYPERTENSION Qualifiers: Qualified Code(s): I10 - Essential (primary) hypertension (4) Hypothyroidism Code(s): E03.9 - HYPOTHYROIDISM, UNSPECIFIED Qualifiers: Qualified Code(s): E03.9 - Hypothyroidism, unspecified (5) Paroxysmal atrial fibrillation Code(s): I48.0 - PAROXYSMAL ATRIAL FIBRILLATION Assessment/Plan 09/30/2018 Echo: Normal LV size and fxn LVEF 60-65%, mildly impaired LV compliance, normal RV fxn, normal atrial sizes, mild TR, trace-mild MR 1. Inflamed diverticulum and perforation planned for exp lap 2. Paroxysmal AF in SR [id number] score of 3 3. Hypertension 4. Hypothyroidism 5. Bipolar disorder 6. Diastolic dysfunction 7. Acute on CKD (pre-renal) improved PLAN: 1. D/c Heparin drip pre-op and resume once post-op hemostasis achieved. Continue IV Lopressor and Cardizem for rate control 2. Empiric antibiotic course 3. IV hydration with monitoring renal function and electrolytes 4. Planned for exp lap given persistent leak, may proceed from CV-standpoint now that she is in SR
--- NOTE | 2018-10-02 10:09 | PN ---
Progress Note, Physician History of Present Illness: Pt with sigmoid diverticulitis, with f/u CT 09/28 showing slightly increased inflammation, fluid and locules of air in the region of microperforation, though contrast had not yet reached this area. AXR the next day showed contrast in proximal colon; she has not had BM yet, but did pass a little gas. She had been taking ice chips. She is on Ertapenem and NC O2. Pain and tenderness had improved a little, but overall she has still looked uncomfortable and been somewhat weak and slightly confused. She has also been in afib with RVR periodically with rate controlled on lopressor, and cardiology is following. Yesterday pm, she had increased tachypnea, and has also had increased abdominal distention. Still not evacuating contrast. Portable CXR showed air-filled stomach mostly in chest. Chest/abdomen/pelvis CT was done showing enteral contrast still in proximal colon with increased SB dilation, increased inflammatory changes in pelvis/small fluid collections possibly representing abscesses, some air tracking up left paracolic gutter with few more bubbles in upper abdomen including hiatal hernia sac consistent with ongoing colonic leak. Pt remained HD stable overnight, and is in sinus rhythm. She had Miguel placed and has light yellow/clear output. She is seen and examined in bed. is at bedside. She c/o feeling like she might be able to have a BM but nothing is coming out. She does have pain. She is able to converse, and does understand our conversation regarding needing surgery today. I also spoke with her sister Monique in [place] by phone at her 's request. - Current Medication List Current Medications: Active Medications Acetaminophen (Ofirmev Injection -) 1,000 mg IVPB Q8H PRN PRN Reason: PAIN Diltiazem HCl (Cardizem Injection -) 10 mg IVPUSH Q4H PRN PRN Reason: TACHYCARDIA Last Admin: 09/30/18 22:13 Dose: 10 mg Heparin Sodium (Porcine) (Heparin -) 1,000 unit IVPUSH PRN PRN PRN Reason: Heparin Heparin Sodium (Porcine) (Heparin -) 5,000 unit IVPUSH PRN PRN PRN Reason: Heparin Last Admin: 09/30/18 18:48 Dose: 5,000 unit Ertapenem 1 gm/ Sodium (Chloride) 50 mls @ 100 mls/hr IVPB DAILY [facility] Last Admin: 10/01/18 09:42 Dose: 100 mls/hr Famotidine/Sodium Chloride (Pepcid 20 Mg Premixed Ivpb -) 20 mg in 50 mls @ 100 mls/hr IVPB BID [facility] Last Admin: 10/02/18 09:15 Dose: 100 mls/hr Heparin Sodium/Dextrose (Heparin Infusion -) 25,000 units in 500 mls @ 16 mls/ hr IVPB TITR [facility]; Protocol Last Admin: 10/01/18 14:30 Dose: 950 units/hr, 19 mls/hr Lactated Ringer's (Lactated Ringers Solution) 1,000 ml in 1,000 mls @ 125 mls/ hr IV ASDIR [facility] Last Admin: 10/02/18 09:16 Dose: 125 mls/hr Levothyroxine Sodium (Synthroid -) 100 mcg PO DAILY@0700 [facility] Last Admin: 10/02/18 06:05 Dose: Not Given Levothyroxine Sodium (Synthroid Injection -) 50 mcg IVPUSH DAILY [facility] [place] Carbonate (Eskalith -) 300 mg PO DAILY [facility] Last Admin: 10/02/18 09:15 Dose: Not Given Metoprolol Tartrate (Lopressor Injection -) 5 mg IVPUSH Q4H PRN PRN Reason: TACHYCARDIA Last Admin: 10/01/18 01:30 Dose: 5 mg Metoprolol Tartrate (Lopressor -) 50 mg PO BID [facility] Last Admin: 10/02/18 09:15 Dose: Not Given - Objective Vital Signs: Vital Signs Temperature 97.4 F L 10/02/18 06:00 Pulse Rate 100 H 10/02/18 06:00 Respiratory Rate 19 10/02/18 06:00 Blood Pressure 142/83 10/02/18 06:00 O2 Sat by Pulse Oximetry (%) 98 10/01/18 21:00 Intake & Output 10/01/18 10/02/18 10/02/18 23:59 07:59 15:59 Intake Total 1070 1922 Output Total 600 400 Balance 1070 1322 -400 Intake: IV 1020 1922 D5-1/2NS+20 MEQ KCL - 20 1000 meq In 1,000 ml @ 125 mls /hr IV ASDIR [facility] Rx#: [id number] HEPARIN INFUSION - 25,000 152 units In 500 ml @ 800 UNITS/HR 16 mls/hr IVPB TITR [facility] Rx#:[id number] LACTATED RINGERS SOLUTION 750 1,000 ml In 1,000 ml @ 125 mls/hr IV ASDIR [facility] Rx#:[id number] Normal Saline - 1,000 ml 1000 @ 1000 mls/hr IV ASDIR [facility] Rx#:[id number] saline lock 20 20 IVPB 50 Oral 0 Output: Gastric Drainage 400 Urine 600 Miguel 600 Other: Voiding Method Incontinent Indwelling Catheter # Unmeasured Voids Void 4 Bowel Movement No Constitutional: Yes: Well Nourished, Calm, Moderate Distress (uncomfortable, slightly confused, resting intermittently) Eyes: Yes: Conjunctiva Clear, EOM Intact HENT: Yes: Atraumatic, Normocephalic Respiratory: Yes: On Nasal O2, Tachypnea Gastrointestinal: Yes: Soft, Distention, Tenderness (diffusely, more in upper abdomen and LLQ with some guarding), Tenderness, Epigastrium, Other (NGT placed easily with 400ml green bilious output initially - pt states she does feel like she can breathe a bit better afterward) ...Rectal Exam: Yes: Deferred Genitourinary: Yes: Miguel Present. No: Hematuria Extremities: Yes: Other (SCDs in place). No: Cool, Cyanosis Integumentary: No: Jaundice, Rash Neurological: Yes: Alert, Oriented, Confusion (slight/intermittent) Labs: CBC, BMP 10/02/18 05:30 cbc pending CMP Sodium 149 mmol/L (136-145) H 10/02/18 05:30 Potassium 3.7 mmol/L (3.5-5.1) 10/02/18 05:30 Chloride 118 mmol/L (98-107) H 10/02/18 05:30 Carbon Dioxide 24 mmol/L (21-32) 10/02/18 05:30 Anion Gap 6 MMOL/L (8-16) L 10/02/18 05:30 BUN 29 mg/dL (7-18) H 10/02/18 05:30 Creatinine 1.2 mg/dL (0.55-1.3) 10/02/18 05:30 Creat Clearance w eGFR 44.54 (>60) 10/02/18 05:30 Random Glucose 116 mg/dL (74-106) H 10/02/18 05:30 Hemoglobin A1c % 5.0 % (4.2-6.3) 10/02/18 05:30 Lactic Acid 1.3 mmol/L (0.4-2.0) 10/01/18 21:30 Calcium 9.0 mg/dL (8.5-10.1) 10/02/18 05:30 Phosphorus 3.6 mg/dL (2.5-4.9) 10/02/18 05:30 Magnesium 2.1 mg/dL (1.8-2.4) 10/02/18 05:30 Total Bilirubin 0.3 mg/dL (0.2-1) 10/02/18 05:30 Direct Bilirubin 0.1 mg/dL (0.0-0.2) 10/02/18 05:30 AST 21 U/L (15-37) 10/02/18 05:30 ALT 22 U/L (13-61) 10/02/18 05:30 Alkaline Phosphatase 68 U/L (45-117) 10/02/18 05:30 Creatine Kinase 57 IU/L (26-192) 09/29/18 15:15 Troponin I < 0.02 ng/ml (0.00-0.05) 09/29/18 15:15 B-Natriuretic Peptide 6110.2 pg/ml (5-125) H 10/01/18 21:30 Total Protein 5.0 g/dl (6.4-8.2) L 10/02/18 05:30 Albumin 1.9 g/dl (3.4-5.0) L 10/02/18 05:30 Lipase 325 U/L (73-393) 09/27/18 16:37 TSH 1.37 uIU/ml (0.358-3.74) 09/29/18 15:15 BUN/Cr coming down Na, Cl still high K coming up lactate normal last night PTT 53.1 this am - ....Imaging X-ray: Report Reviewed, Image Reviewed Cat Scan: Report Reviewed, Image Reviewed (images personally reviewed and discussed with Dr. Aguilar/RAD - see hpi, increased changes of diverticulitis in pelvis, increased areas of extraluminal air including tracking up left paracolic gutter and locules in upper abdomen; more than half stomach in chest with air/fluid, dilated SB and enteral contrast still in proximal colon) Problem List - Problems (1) Diverticulitis of large intestine with perforation without abscess or bleeding Assessment/Plan: NGT placed at bedside to decompress stomach, to low continuous suction Miguel in place continue Ertapenem pain meds prn will need to take to OR for exploration, likely sigmoid resection, high chance of colostomy discussed with patient, who indicates understanding and assent Discussed with patient and her (signed consent) risks, benefits and alternatives of exploratory laparotomy, possible bowel resection, possible ostomy, including but not limited to bleeding, infection, injury to adjacent structures, intestinal leak or injury, intraabdominal abscess, incisional hernia , need for further procedures, ; alternatives include antibiotics and no surgery - risks of this include gross perforation, sepsis, . Patient and desire to proceed with operation - will take to OR for above. Informed consent signed for same. Hold heparin drip now - anticipate surgery ~1:30-2pm. NO po meds - holding all until able to resume postop continue fluids spoke with pt's sister by phone, her brother may also come up from [facility] all questions answered may need ICU postop, at least initially seen and discussed with primary team, Dr. Perez and residents Code(s): K57.20 - DVTRCLI OF LG INT W PERFORATION AND ABSCESS W/O BLEEDING (2) Suprapubic pain Code(s): R10.2 - PELVIC AND PERINEAL PAIN (3) Constipation Code(s): K59.00 - CONSTIPATION, UNSPECIFIED Qualifiers: Constipation type: other constipation type Qualified Code(s): K59.09 - Other constipation (4) Paroxysmal atrial fibrillation Assessment/Plan: on telemetry echo results noted - mild diastolic dysfunction but normal EF cardiology consultation noted heparin drip - on hold for OR keep lytes normal pain control will need to use IV lopressor/cardizem prn for heart rate control until able to resume po discussed with Dr. Schmidt Code(s): I48.0 - PAROXYSMAL ATRIAL FIBRILLATION (5) Bipolar disorder Assessment/Plan: hold lithium for now level ok Code(s): F31.9 - BIPOLAR DISORDER, UNSPECIFIED Qualifiers: Active/Remission status: in remission of unspecified degree Qualified Code( s): F31.70 - Bipolar disorder, currently in remission, most recent episode unspecified (6) Hypertension Code(s): I10 - ESSENTIAL (PRIMARY) HYPERTENSION Qualifiers: Hypertension type: essential hypertension Qualified Code(s): I10 - Essential (primary) hypertension (7) Hyperlipidemia Code(s): E78.5 - HYPERLIPIDEMIA, UNSPECIFIED Qualifiers: Hyperlipidemia type: unspecified Qualified Code(s): E78.5 - Hyperlipidemia , unspecified (8) Hypothyroidism Assessment/Plan: changed synthroid to IV Code(s): E03.9 - HYPOTHYROIDISM, UNSPECIFIED Qualifiers: Hypothyroidism type: unspecified Qualified Code(s): E03.9 - Hypothyroidism , unspecified (9) Hiatal hernia without gangrene or obstruction Code(s): K44.9 - DIAPHRAGMATIC HERNIA WITHOUT OBSTRUCTION OR GANGRENE
[2018-10-02] MEDS ORDERED: LEVOTHYROXINE SODIUM 100 MCG VIAL IVPUSH SCH (10:30)
[2018-10-02] MEDS: ERTAPENEM SODIUM 1 GM in SODIUM CHLORIDE 50 ML IVPB SCH (10:36)
[2018-10-02] MEDS: METOPROLOL TARTRATE 5 MG/5 ML VIAL IVPUSH PRN (12:54)
--- NOTE | 2018-10-02 13:48 | CON.ID ---
Consult Consult Specialty:: infectious diseases Referred by:: Reason for Consultation:: diverticulitis - History of Present Illness Chief Complaint: abd pain History of Present Illness: 67yo F with multiple medical issues noted constipation a few days ago, and that she would try to go, but wasn't able to pass much stool, and began having suprapubic pain on which got progressively worse, prompting her visit to ER. She ate an eggplant dish Sunday at a restaurant and had leftovers , after which the pain came on and got bad. She denies N/V, F/C, or similar pain in past. She had vaginal hysterectomy with anterior and posterior repair for prolapse/cystocele/rectocele in 03/14. She had been on incontinence med, but has since stopped at doctor's request, and feels her frequency of urination has returned. No diarrhea. She came to ER night, and while here, also tried to have BM but had severe suprapubic/pelvic pain. In ER, she had wbc 14, BUN/Cr slightly high at 25/1.2 (only previous known here is 20/1.3 in 03/14), and AXR showed only clips in gb fossa. CT was done showing ovoid structure adjacent to mid-sigmoid wall with debris, air/fluid in it, possibly enlarged diverticulum? possibly stool ball in sigmoid, but not clear if actually in bowel segment or adjacent to it. Mesentery next to is also inflamed , but no barney abscess or diverticulitis, no obstruction, stool throughout colon (not much in rectum), no free air or fluid. She was admitted to medicine, given IVF and pain meds, and started on abx (Levo/ Flagyl) today. Surgery was asked to evaluate. She is seen in bed in room on floor, at bedside (who is very anxious, easily tearful). She still has some pain, indicates mainly suprapubic, but also somewhat diffuse. No n/v, mouth feels very dry. She just had temp 101.7, had been 101.1 overnight, and is getting tylenol from nurse. IV site infiltrated, new one is being placed. She is also somewhat anxious, and has some difficulty finding words, but is cooperative and moves ok in bed. the above was the history of the patient on admission patient was seen by surgery and the patient is going to the operating room today currently the patient is quite a bit of pain and the is here with whom i had a long discussion - History Source History Provided By: Family Member, Medical Record Limitations to Obtaining History: Clinical Condition - Past Medical History [employer]: Yes: Migraine, Vertigo Cardio/Vascular: Yes: HTN, Hyperlipdemia Pulmonary: Yes: Asthma Gastrointestinal: Yes: Constipation, Hiatal Hernia Psych: Yes: Anxiety, Bipolar, Depression ENT: Yes: Allergic Rhinitis Endocrine: Yes: Hypothyroidism - Past Surgical History Past Surgical History: Yes: Cholecystectomy (laparoscopic), Colonoscopy, Hysterectomy (vaginal with ant/post repair) - Alcohol/Substance Use Hx Alcohol Use: Yes (social/occasional) History of Substance Use: reports: None - Smoking History Smoking history: Former smoker Have you smoked in the past 12 months: No If you are a former smoker, when did you quit?: 1980s - Social History Usual Living Arrangement: With Spouse ADL: Independent Home Medications - Allergies Allergies/Adverse Reactions: Allergies Allergy/AdvReac Type Severity Reaction Status Date / Time Penicillins Allergy Rash Verified 09/29/18 12:29 morphine AdvReac Verified 10/04/18 19:11 - Home Medications Home Medications: Ambulatory Orders Atorvastatin Ca [Lipitor] 5 mg PO HS 02/23/17 Meclizine HCl 12.5 mg PO BID PRN 02/23/17 Rizatriptan Benzoate [Maxalt] 10 mg PO PRN PRN 02/23/17 Loratadine [Claritin] 10 mg PO DAILY 09/27/18 Calcium Carb, Citrate/Vit D3 [Citracal + D ER Tablet] 1 each PO BID 09/29/18 Glucosa Teixeira 2Kcl/Chondroitin Teixeira [Glucosamine & Chondroitin Cap] 2 each PO DAILY 09/29/18 Oxybutynin Chloride 5 mg PO DAILY 09/29/18 Sodium Chloride [Saline Nasal Hines] 45 ml NS PRN PRN 09/29/18 Acetaminophen [Tylenol .Regular Strength -] 650 mg PO Q6H PRN tablet 10/17/18 Apixaban [Eliquis -] 5 mg PO BID #60 tablet 10/17/18 Levothyroxine [Synthroid -] 100 mcg PO DAILY@0500 tablet 10/17/18 Metoprolol Tartrate [Lopressor -] 25 mg PO BID tablet 10/17/18 Family Disease History - Family Disease History Family Disease History: CA: Sister (lymphoma at 70, alive at 75) Other Family History: multiple family members with hiatal hernia Review of Systems - Review of Systems Constitutional: reports: No Symptoms Eyes: reports: No Symptoms HENT: reports: No Symptoms Neck: reports: No Symptoms Cardiovascular: reports: No Symptoms Respiratory: reports: No Symptoms Gastrointestinal: reports: Abdominal Pain Genitourinary: reports: No Symptoms Musculoskeletal: reports: No Symptoms Integumentary: reports: No Symptoms Neurological: reports: No Symptoms Endocrine: reports: No Symptoms Hematology/Lymphatic: reports: No Symptoms Psychiatric: reports: No Symptoms Physical Exam Vital Signs: Vital Signs Temperature 98 F 10/02/18 09:16 Pulse Rate 120 H 10/02/18 12:54 Respiratory Rate 20 10/02/18 09:16 Blood Pressure 155/74 10/02/18 12:54 O2 Sat by Pulse Oximetry (%) 98 10/02/18 09:16 Constitutional: Yes: Calm, Moderate Distress Eyes: Yes: Conjunctiva Clear Cardiovascular: Yes: Regular Rate and Rhythm Respiratory: Yes: Regular, Poor Air Entry (bases) Gastrointestinal: Yes: Other (absent kailash sounds tenderness present) Musculoskeletal: Yes: WNL Extremities: Yes: WNL Neurological: Yes: Alert Psychiatric: Yes: Alert Labs: CBC, BMP 10/02/18 05:30 10/02/18 05:30 Imaging - Results Chest X-ray: Report Reviewed, Image Reviewed Cat Scan: Report Reviewed, Image Reviewed Assessment/Plan - Problems (1) Diverticulitis of large intestine with perforation without abscess or bleeding Code(s): K57.20 - DVTRCLI OF LG INT W PERFORATION AND ABSCESS W/O BLEEDING (2) Suprapubic pain Code(s): R10.2 - PELVIC AND PERINEAL PAIN (3) Constipation Code(s): K59.00 - CONSTIPATION, UNSPECIFIED Qualifiers: Constipation type: other constipation type Qualified Code(s): K59.09 - Other constipation (4) Paroxysmal atrial fibrillation Code(s): I48.0 - PAROXYSMAL ATRIAL FIBRILLATION (5) Bipolar disorder Code(s): F31.9 - BIPOLAR DISORDER, UNSPECIFIED Qualifiers: Active/Remission status: in remission of unspecified degree Qualified Code( s): F31.70 - Bipolar disorder, currently in remission, most recent episode unspecified (6) Hypertension Code(s): I10 - ESSENTIAL (PRIMARY) HYPERTENSION Qualifiers: Hypertension type: essential hypertension Qualified Code(s): I10 - Essential (primary) hypertension (7) Hyperlipidemia Code(s): E78.5 - HYPERLIPIDEMIA, UNSPECIFIED Qualifiers: Hyperlipidemia type: unspecified Qualified Code(s): E78.5 - Hyperlipidemia , unspecified (8) Hypothyroidism Code(s): E03.9 - HYPOTHYROIDISM, UNSPECIFIED Qualifiers: Hypothyroidism type: unspecified Qualified Code(s): E03.9 - Hypothyroidism , unspecified (9) Hiatal hernia without gangrene or obstruction Code(s): K44.9 - DIAPHRAGMATIC HERNIA WITHOUT OBSTRUCTION OR GANGRENE plan will stop ertapenam will switch to meropenam hydration patient going to the or for probably colostomy rest as per the team
--- NOTE | 2018-10-02 13:53 | PN ---
Physical Exam: SUBJECTIVE: Patient seen and examined at bedside- patient is uncomfortable in pain with increasing work of breathing. her ct scan worsened overnight and she is now going for emergent surgery with Dr Underwood this afternoon. OBJECTIVE: Vital Signs Period Temp Pulse Resp BP Sys/Choi Pulse Ox Last 24 Hr 97.4 F-98 F 92-120 19-22 130-156/74-94 98-98 GENERAL: The patient is awake, alert, in distress EYES: no scleral icterus NECK: no JVD no lymphadenoapthy LUNGS: Breath sounds equal, clear to auscultation bilaterally, no wheezes, no crackles, no accessory muscle use. HEART: tachycardic, S1, S2 without murmur, rub or gallop. ABDOMEN: distended w/ +guarding, hypoactive bowel sounds EXTREMITIES: 2+ pulses, warm, well-perfused, no edema. SKIN: Warm, dry, normal turgor, no rashes or lesions noted Laboratory Results - last 24 hr 10/01/18 10/01/18 10/01/18 21:30 21:30 21:30 WBC 8.9 RBC 4.81 Hgb 13.4 Hct 39.9 MCV 82.9 MCH 27.9 MCHC 33.7 RDW 15.0 Plt Count 269 D MPV 9.1 PTT (Actin FS) Anticoagulation Therapy Puncture Site Patient Temperature ABG pH ABG pCO2 at Pt Temp ABG pO2 at Pt Temp ABG HCO3 ABG O2 Sat (Measured) ABG O2 Content ABG Base Excess Devin Test O2 Delivery Device Oxygen Flow Rate Vent Mode Vent Rate Mechanical Rate PEEP Pressure Support Vent Sodium 149 H Potassium 3.6 Chloride 116 H Carbon Dioxide 25 Anion Gap 8 BUN 27 H Creatinine 1.4 H Creat Clearance w eGFR 37.28 Random Glucose 111 H Hemoglobin A1c % Lactic Acid 1.3 Calcium 9.5 Phosphorus Magnesium Total Bilirubin Direct Bilirubin AST ALT Alkaline Phosphatase B-Natriuretic Peptide 6110.2 H Total Protein Albumin Blood Type Antibody Screen 10/01/18 10/01/18 10/01/18 21:45 22:00 22:00 WBC RBC Hgb Hct MCV MCH MCHC RDW Plt Count MPV PTT (Actin FS) Anticoagulation Therapy Cancelled Puncture Site Cancelled Patient Temperature Cancelled ABG pH Cancelled ABG pCO2 at Pt Temp Cancelled ABG pO2 at Pt Temp Cancelled ABG HCO3 Cancelled ABG O2 Sat (Measured) Cancelled ABG O2 Content Cancelled ABG Base Excess Cancelled Devin Test Cancelled O2 Delivery Device Cancelled Oxygen Flow Rate Cancelled Vent Mode Cancelled Vent Rate Cancelled Mechanical Rate Cancelled PEEP Cancelled Pressure Support Vent Cancelled Sodium Potassium Chloride Carbon Dioxide Anion Gap BUN Creatinine Creat Clearance w eGFR Random Glucose Hemoglobin A1c % Lactic Acid Calcium Phosphorus Magnesium Total Bilirubin Direct Bilirubin AST ALT Alkaline Phosphatase B-Natriuretic Peptide Total Protein Albumin Blood Type O POSITIVE O POSITIVE Antibody Screen Negative 10/01/18 10/01/18 10/02/18 22:00 22:28 05:30 WBC 8.9 RBC 4.60 Hgb 12.2 Hct 38.9 MCV 84.5 MCH 26.4 MCHC 31.3 L RDW 14.8 Plt Count 223 MPV 9.5 PTT (Actin FS) 41.7 H Anticoagulation Therapy No Result Required. Puncture Site Left radial Patient Temperature ABG pH 7.39 ABG pCO2 at Pt Temp 36.5 ABG pO2 at Pt Temp 82.6 ABG HCO3 21.6 L ABG O2 Sat (Measured) 95.9 ABG O2 Content 16.1 ABG Base Excess -2.4 L Devin Test Positive O2 Delivery Device No Result Required. Oxygen Flow Rate 2.0l Vent Mode No Result Required. Vent Rate No Result Required. Mechanical Rate No Result Required. PEEP Pressure Support Vent No Result Required. Sodium Potassium Chloride Carbon Dioxide Anion Gap BUN Creatinine Creat Clearance w eGFR Random Glucose Hemoglobin A1c % Lactic Acid Calcium Phosphorus Magnesium Total Bilirubin Direct Bilirubin AST ALT Alkaline Phosphatase B-Natriuretic Peptide Total Protein Albumin Blood Type Antibody Screen 10/02/18 10/02/18 10/02/18 05:30 05:30 05:30 WBC RBC Hgb Hct MCV MCH MCHC RDW Plt Count MPV PTT (Actin FS) 53.1 H Anticoagulation Therapy Puncture Site Patient Temperature ABG pH ABG pCO2 at Pt Temp ABG pO2 at Pt Temp ABG HCO3 ABG O2 Sat (Measured) ABG O2 Content ABG Base Excess Devin Test O2 Delivery Device Oxygen Flow Rate Vent Mode Vent Rate Mechanical Rate PEEP Pressure Support Vent Sodium 149 H Potassium 3.7 Chloride 118 H Carbon Dioxide 24 Anion Gap 6 L BUN 29 H Creatinine 1.2 Creat Clearance w eGFR 44.54 Random Glucose 116 H Hemoglobin A1c % 5.0 Lactic Acid Calcium 9.0 Phosphorus 3.6 Magnesium 2.1 Total Bilirubin 0.3 Direct Bilirubin 0.1 AST 21 ALT 22 Alkaline Phosphatase 68 B-Natriuretic Peptide Total Protein 5.0 L Albumin 1.9 L Blood Type Antibody Screen 10/02/18 05:30 WBC RBC Hgb Hct MCV MCH MCHC RDW Plt Count MPV PTT (Actin FS) Anticoagulation Therapy Puncture Site Patient Temperature ABG pH ABG pCO2 at Pt Temp ABG pO2 at Pt Temp ABG HCO3 ABG O2 Sat (Measured) ABG O2 Content ABG Base Excess Devin Test O2 Delivery Device Oxygen Flow Rate Vent Mode Vent Rate Mechanical Rate PEEP Pressure Support Vent Sodium Potassium Chloride Carbon Dioxide Anion Gap BUN Creatinine Creat Clearance w eGFR Random Glucose Hemoglobin A1c % Lactic Acid Calcium Phosphorus Magnesium Total Bilirubin Cancelled Direct Bilirubin Cancelled AST Cancelled ALT Cancelled Alkaline Phosphatase Cancelled B-Natriuretic Peptide Total Protein Cancelled Albumin Cancelled Blood Type Antibody Screen Active Medications Generic Name Dose Route Start Last Admin Trade Name Freq PRN Reason Stop Dose Admin Acetaminophen 1,000 mg 10/01/18 10:06 10/02/18 12:54 Ofirmev Injection - IVPB 1,000 mg Q8H PRN Administration PAIN Diltiazem HCl 10 mg 09/30/18 17:42 09/30/18 22:13 Cardizem Injection - IVPUSH 10 mg Q4H PRN Administration TACHYCARDIA Heparin Sodium (Porcine) 1,000 unit 09/30/18 14:21 Heparin - IVPUSH PRN PRN Heparin Heparin Sodium (Porcine) 5,000 unit 09/30/18 14:21 09/30/18 18:48 Heparin - IVPUSH 5,000 unit PRN PRN Administration Heparin Ertapenem 1 gm/ Sodium 50 mls @ 100 mls/hr 09/29/18 12:00 10/02/18 10:36 Chloride IVPB 100 mls/hr DAILY THOMAS Administration Famotidine/Sodium Chloride 20 mg in 50 mls @ 100 mls/hr 09/29/18 15:00 09:15 Pepcid 20 Mg Premixed Ivpb - IVPB 100 mls/hr BID THOMAS Administration Heparin Sodium/Dextrose 25,000 units in 500 mls @ 16 mls/hr 09/30/18 14:30 14:30 Heparin Infusion - IVPB 950 units/hr TITR THOMAS 19 mls/hr Administration Protocol 800 UNITS/HR Lactated Ringer's 1,000 ml in 1,000 mls @ 125 mls/hr 10/01/18 23:00 10/02/18 09:16 Lactated Ringers Solution IV 125 mls/hr ASDIR THOMAS Administration Levothyroxine Sodium 100 mcg 09/30/18 07:00 10/02/18 06:05 Synthroid - PO Not Given DAILY@0700 THOMAS Levothyroxine Sodium 50 mcg 10/02/18 10:30 10/02/18 12:53 Synthroid Injection - IVPUSH 50 mcg DAILY THOMAS Administration [place] Carbonate 300 mg 09/30/18 10:00 10/02/18 09:15 Eskalith - PO Not Given DAILY THOMAS Metoprolol Tartrate 5 mg 09/30/18 17:43 10/02/18 12:54 Lopressor Injection - IVPUSH 5 mg Q4H PRN Administration TACHYCARDIA Metoprolol Tartrate 50 mg 10/01/18 22:00 10/02/18 09:15 Lopressor - PO Not Given BID THOMAS ASSESSMENT/PLAN: 67 y/o female with PMH of cholecystitis and bipolar disorder presented to the ED with abdominal pain and constipation since found to have a 5x4.3x3.4 oval shaped structure with air possible representing an inflamed diverticulum vs. a contained perforation #Possible diverticulitis v. perforation? -repeat CT scan done showing pneumoperitoneum with increased edema and free air with increased distention in small and large bowel -patient is going for emergent surgery this afternoon with Dr. Underwood -Yessy day 4 -tylenol for pain control -LR@ 125mls/hr -patient has not had fever since last night; will continue to monitor -ice chips and PO meds only #New onset Afib -patient has been in sinus overnight -metoprolol tartrate 50 BID with lopressor 5mg PRN -started Heparin drip for AC -tele monitoring -cardio on board #Bipolar Disorder -c/w with lithium #Hypothyroidism -c/w synthroid F/E/N LR @125mls/hr monitor electrolytes NPO except meds DVT PPX: Heparin drip Problem List - Problems (1) Abdominal pain Code(s): R10.9 - UNSPECIFIED ABDOMINAL PAIN Qualifiers: Abdominal location: unspecified location Qualified Code(s): R10.9 - Unspecified abdominal pain (2) Abnormal CT scan, sigmoid colon Code(s): R93.3 - ABNORMAL FINDINGS ON DX IMAGING OF PRT DIGESTIVE TRACT (3) Bipolar disorder Code(s): F31.9 - BIPOLAR DISORDER, UNSPECIFIED Qualifiers: Active/Remission status: in remission of unspecified degree Qualified Code( s): F31.70 - Bipolar disorder, currently in remission, most recent episode unspecified Visit type - Emergency Visit Emergency Visit: Yes ED Registration Date: 09/28/18 Care time: The patient presented to the Emergency Department on the above date and was hospitalized for further evaluation of their emergent condition. - New Patient This patient is new to me today: No - Critical Care Critical Care patient: No
[2018-10-02] MEDS ORDERED: MEROPENEM 1 GM in DEXTROSE 5%-WATER 100 ML IVPB SCH (14:15)
[2018-10-02] MEDS ORDERED: fentaNYL CITRATE 250 MCG/5 ML VIAL ONE ×3 (14:38→19:38)
[2018-10-02] MEDS ORDERED: MEROPENEM 1 GM VIAL (RESTRICTED TO ID) IVPB ONE (14:55)
--- NOTE | 2018-10-02 15:48 | PN ---
Teaching Attending Note Name of Resident: Yaima Baeza ATTENDING PHYSICIAN STATEMENT I saw and evaluated the patient. I reviewed the resident's note and discussed the case with the resident. I agree with the resident's findings and plan as documented with exceptions below. SUBJECTIVE: Patient seen and examined. Still with pain, dyspnea, feels weak, limited conversation. OBJECTIVE: Vital Signs Period Temp Pulse Resp BP Sys/Choi Pulse Ox Last 24 Hr 97.4 F-98 F 92-120 19-20 130-156/74-94 98-98 Intake & Output 09/29/18 09/30/18 10/01/18 10/02/18 23:59 23:59 23:59 23:59 Intake Total 3100 2870 4170 1922 Output Total 154 750 3805 Balance 3100 2670 3670 522 General: sitting in bed, tachypneic, lethargic, use of accessory muscles of respiration Chest: decreased breath sounds at bases, bowel sounds on chest auscultation Abdomen:soft, distended, tenderness with guarding LLQ, unable to appreciate bowel sounds Extremities: no edema CVS:S1S2 irregular Active Medications Acetaminophen (Ofirmev Injection -) 1,000 mg IVPB Q8H PRN PRN Reason: PAIN Last Admin: 10/02/18 12:54 Dose: 1,000 mg Diltiazem HCl (Cardizem Injection -) 10 mg IVPUSH Q4H PRN PRN Reason: TACHYCARDIA Last Admin: 09/30/18 22:13 Dose: 10 mg Heparin Sodium (Porcine) (Heparin -) 1,000 unit IVPUSH PRN PRN PRN Reason: Heparin Heparin Sodium (Porcine) (Heparin -) 5,000 unit IVPUSH PRN PRN PRN Reason: Heparin Last Admin: 09/30/18 18:48 Dose: 5,000 unit Famotidine/Sodium Chloride (Pepcid 20 Mg Premixed Ivpb -) 20 mg in 50 mls @ 100 mls/hr IVPB BID THOMAS Last Admin: 10/02/18 09:15 Dose: 100 mls/hr Heparin Sodium/Dextrose (Heparin Infusion -) 25,000 units in 500 mls @ 16 mls/ hr IVPB TITR THMOAS; Protocol Last Admin: 10/01/18 14:30 Dose: 950 units/hr, 19 mls/hr Lactated Ringer's (Lactated Ringers Solution) 1,000 ml in 1,000 mls @ 125 mls/ hr IV ASDIR [facility] Last Admin: 10/02/18 09:16 Dose: 125 mls/hr Meropenem 1 gm/ Dextrose 100 mls @ 200 mls/hr IVPB Q8H-IV THOMAS Levothyroxine Sodium (Synthroid -) 100 mcg PO DAILY@0700 [facility] Last Admin: 10/02/18 06:05 Dose: Not Given Levothyroxine Sodium (Synthroid Injection -) 50 mcg IVPUSH DAILY [facility] Last Admin: 10/02/18 12:53 Dose: 50 mcg [place] Carbonate (Eskalith -) 300 mg PO DAILY [facility] Last Admin: 10/02/18 09:15 Dose: Not Given Metoprolol Tartrate (Lopressor Injection -) 5 mg IVPUSH Q4H PRN PRN Reason: TACHYCARDIA Last Admin: 10/02/18 12:54 Dose: 5 mg Metoprolol Tartrate (Lopressor -) 50 mg PO BID [facility] Last Admin: 10/02/18 09:15 Dose: Not Given Laboratory Results - last 24 hr 10/01/18 10/01/18 10/01/18 21:30 21:30 21:30 WBC 8.9 RBC 4.81 Hgb 13.4 Hct 39.9 MCV 82.9 MCH 27.9 MCHC 33.7 RDW 15.0 Plt Count 269 D MPV 9.1 PTT (Actin FS) Anticoagulation Therapy Puncture Site Patient Temperature ABG pH ABG pCO2 at Pt Temp ABG pO2 at Pt Temp ABG HCO3 ABG O2 Sat (Measured) ABG O2 Content ABG Base Excess Devin Test O2 Delivery Device Oxygen Flow Rate Vent Mode Vent Rate Mechanical Rate PEEP Pressure Support Vent Sodium 149 H Potassium 3.6 Chloride 116 H Carbon Dioxide 25 Anion Gap 8 BUN 27 H Creatinine 1.4 H Creat Clearance w eGFR 37.28 Random Glucose 111 H Hemoglobin A1c % Lactic Acid 1.3 Calcium 9.5 Phosphorus Magnesium Total Bilirubin Direct Bilirubin AST ALT Alkaline Phosphatase B-Natriuretic Peptide 6110.2 H Total Protein Albumin Blood Type Antibody Screen Crossmatch IS Only 10/01/18 10/01/18 10/01/18 21:45 22:00 22:00 WBC RBC Hgb Hct MCV MCH MCHC RDW Plt Count MPV PTT (Actin FS) Anticoagulation Therapy Cancelled Puncture Site Cancelled Patient Temperature Cancelled ABG pH Cancelled ABG pCO2 at Pt Temp Cancelled ABG pO2 at Pt Temp Cancelled ABG HCO3 Cancelled ABG O2 Sat (Measured) Cancelled ABG O2 Content Cancelled ABG Base Excess Cancelled Devin Test Cancelled O2 Delivery Device Cancelled Oxygen Flow Rate Cancelled Vent Mode Cancelled Vent Rate Cancelled Mechanical Rate Cancelled PEEP Cancelled Pressure Support Vent Cancelled Sodium Potassium Chloride Carbon Dioxide Anion Gap BUN Creatinine Creat Clearance w eGFR Random Glucose Hemoglobin A1c % Lactic Acid Calcium Phosphorus Magnesium Total Bilirubin Direct Bilirubin AST ALT Alkaline Phosphatase B-Natriuretic Peptide Total Protein Albumin Blood Type O POSITIVE O POSITIVE Antibody Screen Negative Crossmatch IS Only See Detail 10/01/18 10/01/18 10/02/18 22:00 22:28 05:30 WBC 8.9 RBC 4.60 Hgb 12.2 Hct 38.9 MCV 84.5 MCH 26.4 MCHC 31.3 L RDW 14.8 Plt Count 223 MPV 9.5 PTT (Actin FS) 41.7 H Anticoagulation Therapy No Result Required. Puncture Site Left radial Patient Temperature ABG pH 7.39 ABG pCO2 at Pt Temp 36.5 ABG pO2 at Pt Temp 82.6 ABG HCO3 21.6 L ABG O2 Sat (Measured) 95.9 ABG O2 Content 16.1 ABG Base Excess -2.4 L Devin Test Positive O2 Delivery Device No Result Required. Oxygen Flow Rate 2.0l Vent Mode No Result Required. Vent Rate No Result Required. Mechanical Rate No Result Required. PEEP Pressure Support Vent No Result Required. Sodium Potassium Chloride Carbon Dioxide Anion Gap BUN Creatinine Creat Clearance w eGFR Random Glucose Hemoglobin A1c % Lactic Acid Calcium Phosphorus Magnesium Total Bilirubin Direct Bilirubin AST ALT Alkaline Phosphatase B-Natriuretic Peptide Total Protein Albumin Blood Type Antibody Screen Crossmatch IS Only 10/02/18 10/02/18 10/02/18 05:30 05:30 05:30 WBC RBC Hgb Hct MCV MCH MCHC RDW Plt Count MPV PTT (Actin FS) 53.1 H Anticoagulation Therapy Puncture Site Patient Temperature ABG pH ABG pCO2 at Pt Temp ABG pO2 at Pt Temp ABG HCO3 ABG O2 Sat (Measured) ABG O2 Content ABG Base Excess Devin Test O2 Delivery Device Oxygen Flow Rate Vent Mode Vent Rate Mechanical Rate PEEP Pressure Support Vent Sodium 149 H Potassium 3.7 Chloride 118 H Carbon Dioxide 24 Anion Gap 6 L BUN 29 H Creatinine 1.2 Creat Clearance w eGFR 44.54 Random Glucose 116 H Hemoglobin A1c % 5.0 Lactic Acid Calcium 9.0 Phosphorus 3.6 Magnesium 2.1 Total Bilirubin 0.3 Direct Bilirubin 0.1 AST 21 ALT 22 Alkaline Phosphatase 68 B-Natriuretic Peptide Total Protein 5.0 L Albumin 1.9 L Blood Type Antibody Screen Crossmatch IS Only 10/02/18 05:30 WBC RBC Hgb Hct MCV MCH MCHC RDW Plt Count MPV PTT (Actin FS) Anticoagulation Therapy Puncture Site Patient Temperature ABG pH ABG pCO2 at Pt Temp ABG pO2 at Pt Temp ABG HCO3 ABG O2 Sat (Measured) ABG O2 Content ABG Base Excess Devin Test O2 Delivery Device Oxygen Flow Rate Vent Mode Vent Rate Mechanical Rate PEEP Pressure Support Vent Sodium Potassium Chloride Carbon Dioxide Anion Gap BUN Creatinine Creat Clearance w eGFR Random Glucose Hemoglobin A1c % Lactic Acid Calcium Phosphorus Magnesium Total Bilirubin Cancelled Direct Bilirubin Cancelled AST Cancelled ALT Cancelled Alkaline Phosphatase Cancelled B-Natriuretic Peptide Total Protein Cancelled Albumin Cancelled Blood Type Antibody Screen Crossmatch IS Only CT chest/A/P results reviewed CXR and abdominal xray results reviewed Microbiology 09/28/18 15:15 Blood - Peripheral Venous Blood Culture - Preliminary NO GROWTH OBTAINED AFTER 96 HOURS, INCUBATION TO CONTINUE FOR 1 DAYS. 09/28/18 14:52 Blood - Peripheral Venous Blood Culture - Preliminary NO GROWTH OBTAINED AFTER 96 HOURS, INCUBATION TO CONTINUE FOR 1 DAYS. ASSESSMENT AND PLAN: 67yo F wtih PMH cholecystitis and bipolar presented with abdominal pain and constipation for [address] + 5.4x4.3x3.4cm pocket concerning for large inflammed diverticulum vs contained perforation, found with new onset Afib with RVR. -Sepsis due suspected sigmoid diverticulitis with localized perforation now with concerns for abscess/worsening edema -Bowel obstruction+/- ileus likely from above -acute respiratory distress, suspect from progressive abdominal distension/ Large hiatal hernia/atelectasis+/- sepsis, less likley CHF/ARDS currently -New onset Afib with RVR -Hypokalemia -MONIKA, cr rising, likely from hypovolumia/progressive sepsis -Dilated CBD, asymptomatic -Bipolar disorder -Plan: Plan for OR today, close hemodynamic monitoring. May need ICU monitoring Post- op. NG placed by Dr. Underwood. Close abdominal exams. ID consulted Dr. Gale. Meropenem day.1. Blood cx neg so far. NPO for now. Currently in NSR. Metoprolol as tolerated. Monitor volume status, IVF with cautious monitoring of volume status. COntinue lithium, levels therapeutic DVTPPX heparin drip, to be held pre-op per surgery. Dispo critically ill with progressive clinical deterioration, plan for urgent surgery. Plan discussed with patient, family at bedside and nursing in detail, all questions answered.
[2018-10-02] MEDS ORDERED: DESFLURANE GAS 240 ML BOTTLE IH ONE (15:54)
[2018-10-02] MEDS ORDERED: CALCIUM CHLORIDE 1 GM/10 ML *DISP.SYRIN ONE (16:20)
[2018-10-02] MEDS ORDERED: ROCURONIUM BROMIDE 50 MG/5 ML VIAL ONE (16:26)
[2018-10-02] MEDS ORDERED: BENZOIN TINCTURE SWABSTICK TP ONE (16:44)
--- NOTE | 2018-10-02 17:33 | CONSULT ---
Consultation: REQUESTING PROVIDER: CONSULT REQUEST: We have been asked to medically evaluate this patient for post- op care s/p ex lap, small bowel resection with ostomy, POD #0. HISTORY OF PRESENT ILLNESS: 67F w/ pmhx of cholecystitis, chronic constipation, bipolar d/o, sigmoid diverticulitis presented to the ED with abdominal pain and constipation for two days admitted on 09/27/18. She was subsequently found to have new onset a. fib after which [facility] and put on Metoprolol Tartrate w/ Lopressor and started on heparin drip. A second EKG was done that later showed sinus tachy, however pt has had multiple episodes of paroxysmal a. fib during her stay. Pt's abdominal pain worsened and CT showed increase in amount of free air possible showing to be a contained perforation. She was evaluated by surg and brought to the OR. She is currently s/p ex lap, sigmoidectomy with colostomy , POD #0, remains on intubation and admitted to the ICU for post-op care. REVIEW OF SYSTEMS: Unable to obtain. Intubated. PHYSICAL EXAMINATION Vital Signs - 24 hr 10/01/18 10/02/18 10/02/18 21:00 02:00 06:00 Temperature 97.4 F L Pulse Rate 92 H 100 H Respiratory 20 19 Rate Blood Pressure 156/87 142/83 O2 Sat by Pulse 98 Oximetry (%) 10/02/18 10/02/18 09:16 12:54 Temperature 98 F Pulse Rate 120 H 120 H Respiratory 20 Rate Blood Pressure 155/74 155/74 O2 Sat by Pulse 98 Oximetry (%) GENERAL: Currently intubated, not responsive. HEENT: AT/NC. Pupils constricted bilaterally. Dry mucus membranes. NECK: Supple. LUNGS: CTA B/L. No wheezes noted. Symmetric chest rise. HEART: RRR. Normal S1, S2. No murmurs noted. ABDOMEN: Soft, NT/ND. Ostomy bag in place. Surgical abdominal dressing c/d/i. MUSCULOSKELETAL: No peripheral edema noted. EXTREMITIES: 2+ dorsalis pedis pulses b/l. NEUROLOGICAL: Unable to assesss. Laboratory Results - last 24 hr 10/01/18 10/01/18 10/01/18 21:30 21:30 21:30 WBC 8.9 RBC 4.81 Hgb 13.4 Hct 39.9 MCV 82.9 MCH 27.9 MCHC 33.7 RDW 15.0 Plt Count 269 D MPV 9.1 PTT (Actin FS) Anticoagulation Therapy Puncture Site Patient Temperature ABG pH ABG pCO2 at Pt Temp ABG pO2 at Pt Temp ABG HCO3 ABG O2 Sat (Measured) ABG O2 Content ABG Base Excess Devin Test O2 Delivery Device Oxygen Flow Rate Vent Mode Vent Rate Mechanical Rate PEEP Pressure Support Vent Sodium 149 H Potassium 3.6 Chloride 116 H Carbon Dioxide 25 Anion Gap 8 BUN 27 H Creatinine 1.4 H Creat Clearance w eGFR 37.28 Random Glucose 111 H Hemoglobin A1c % Lactic Acid 1.3 Calcium 9.5 Phosphorus Magnesium Total Bilirubin Direct Bilirubin AST ALT Alkaline Phosphatase B-Natriuretic Peptide 6110.2 H Total Protein Albumin Blood Type Antibody Screen Crossmatch IS Only 10/01/18 10/01/18 10/01/18 21:45 22:00 22:00 WBC RBC Hgb Hct MCV MCH MCHC RDW Plt Count MPV PTT (Actin FS) Anticoagulation Therapy Cancelled Puncture Site Cancelled Patient Temperature Cancelled ABG pH Cancelled ABG pCO2 at Pt Temp Cancelled ABG pO2 at Pt Temp Cancelled ABG HCO3 Cancelled ABG O2 Sat (Measured) Cancelled ABG O2 Content Cancelled ABG Base Excess Cancelled Devin Test Cancelled O2 Delivery Device Cancelled Oxygen Flow Rate Cancelled Vent Mode Cancelled Vent Rate Cancelled Mechanical Rate Cancelled PEEP Cancelled Pressure Support Vent Cancelled Sodium Potassium Chloride Carbon Dioxide Anion Gap BUN Creatinine Creat Clearance w eGFR Random Glucose Hemoglobin A1c % Lactic Acid Calcium Phosphorus Magnesium Total Bilirubin Direct Bilirubin AST ALT Alkaline Phosphatase B-Natriuretic Peptide Total Protein Albumin Blood Type O POSITIVE O POSITIVE Antibody Screen Negative Crossmatch IS Only See Detail 10/01/18 10/01/18 10/02/18 22:00 22:28 05:30 WBC 8.9 RBC 4.60 Hgb 12.2 Hct 38.9 MCV 84.5 MCH 26.4 MCHC 31.3 L RDW 14.8 Plt Count 223 MPV 9.5 PTT (Actin FS) 41.7 H Anticoagulation Therapy No Result Required. Puncture Site Left radial Patient Temperature ABG pH 7.39 ABG pCO2 at Pt Temp 36.5 ABG pO2 at Pt Temp 82.6 ABG HCO3 21.6 L ABG O2 Sat (Measured) 95.9 ABG O2 Content 16.1 ABG Base Excess -2.4 L Devin Test Positive O2 Delivery Device No Result Required. Oxygen Flow Rate 2.0l Vent Mode No Result Required. Vent Rate No Result Required. Mechanical Rate No Result Required. PEEP Pressure Support Vent No Result Required. Sodium Potassium Chloride Carbon Dioxide Anion Gap BUN Creatinine Creat Clearance w eGFR Random Glucose Hemoglobin A1c % Lactic Acid Calcium Phosphorus Magnesium Total Bilirubin Direct Bilirubin AST ALT Alkaline Phosphatase B-Natriuretic Peptide Total Protein Albumin Blood Type Antibody Screen Crossmatch IS Only 10/02/18 10/02/18 10/02/18 05:30 05:30 05:30 WBC RBC Hgb Hct MCV MCH MCHC RDW Plt Count MPV PTT (Actin FS) 53.1 H Anticoagulation Therapy Puncture Site Patient Temperature ABG pH ABG pCO2 at Pt Temp ABG pO2 at Pt Temp ABG HCO3 ABG O2 Sat (Measured) ABG O2 Content ABG Base Excess Devin Test O2 Delivery Device Oxygen Flow Rate Vent Mode Vent Rate Mechanical Rate PEEP Pressure Support Vent Sodium 149 H Potassium 3.7 Chloride 118 H Carbon Dioxide 24 Anion Gap 6 L BUN 29 H Creatinine 1.2 Creat Clearance w eGFR 44.54 Random Glucose 116 H Hemoglobin A1c % 5.0 Lactic Acid Calcium 9.0 Phosphorus 3.6 Magnesium 2.1 Total Bilirubin 0.3 Direct Bilirubin 0.1 AST 21 ALT 22 Alkaline Phosphatase 68 B-Natriuretic Peptide Total Protein 5.0 L Albumin 1.9 L Blood Type Antibody Screen Crossmatch IS Only 10/02/18 05:30 WBC RBC Hgb Hct MCV MCH MCHC RDW Plt Count MPV PTT (Actin FS) Anticoagulation Therapy Puncture Site Patient Temperature ABG pH ABG pCO2 at Pt Temp ABG pO2 at Pt Temp ABG HCO3 ABG O2 Sat (Measured) ABG O2 Content ABG Base Excess Devin Test O2 Delivery Device Oxygen Flow Rate Vent Mode Vent Rate Mechanical Rate PEEP Pressure Support Vent Sodium Potassium Chloride Carbon Dioxide Anion Gap BUN Creatinine Creat Clearance w eGFR Random Glucose Hemoglobin A1c % Lactic Acid Calcium Phosphorus Magnesium Total Bilirubin Cancelled Direct Bilirubin Cancelled AST Cancelled ALT Cancelled Alkaline Phosphatase Cancelled B-Natriuretic Peptide Total Protein Cancelled Albumin Cancelled Blood Type Antibody Screen Crossmatch IS Only Active Medications Generic Name Dose Route Start Last Admin Trade Name Freq PRN Reason Stop Dose Admin Acetaminophen 1,000 mg 10/01/18 10:06 10/02/18 12:54 Ofirmev Injection - IVPB 1,000 mg Q8H PRN Administration PAIN Diltiazem HCl 10 mg 09/30/18 17:42 09/30/18 22:13 Cardizem Injection - IVPUSH 10 mg Q4H PRN Administration TACHYCARDIA Heparin Sodium (Porcine) 1,000 unit 09/30/18 14:21 Heparin - IVPUSH PRN PRN Heparin Heparin Sodium (Porcine) 5,000 unit 09/30/18 14:21 09/30/18 18:48 Heparin - IVPUSH 5,000 unit PRN PRN Administration Heparin Famotidine/Sodium Chloride 20 mg in 50 mls @ 100 mls/hr 09/29/18 15:00 09:15 Pepcid 20 Mg Premixed Ivpb - IVPB 100 mls/hr BID THOMAS Administration Heparin Sodium/Dextrose 25,000 units in 500 mls @ 16 mls/hr 09/30/18 14:30 14:30 Heparin Infusion - IVPB 950 units/hr TITR THOMAS 19 mls/hr Administration Protocol 800 UNITS/HR Lactated Ringer's 1,000 ml in 1,000 mls @ 125 mls/hr 10/01/18 23:00 10/02/18 09:16 Lactated Ringers Solution IV 125 mls/hr ASDIR THOMAS Administration Meropenem 1 gm/ Dextrose 100 mls @ 200 mls/hr 10/02/18 14:15 IVPB Q8H-IV THOMAS Levothyroxine Sodium 100 mcg 09/30/18 07:00 10/02/18 06:05 Synthroid - PO Not Given DAILY@0700 THOMAS Levothyroxine Sodium 50 mcg 10/02/18 10:30 10/02/18 12:53 Synthroid Injection - IVPUSH 50 mcg DAILY THOMAS Administration [place] Carbonate 300 mg 09/30/18 10:00 10/02/18 09:15 Eskalith - PO Not Given DAILY THOMAS Metoprolol Tartrate 5 mg 09/30/18 17:43 10/02/18 12:54 Lopressor Injection - IVPUSH 5 mg Q4H PRN Administration TACHYCARDIA ASSESSMENT/PLAN: 67F w/ pmhx of cholecystitis, chronic constipation, bipolar d/o, pneumoperitoneum s/p ex lap, sigmoid colectomy with colostomy, POD #0 admitted to the ICU for post-op care. Neurology -Sedated. On Fentanyl drip. Pulmonary -Intubated. -Duonebs QID -repeat CXR pending -Start weaning trials pending pt's clinical status tomorrow Cardiology #New onset A. fib -Stable, pt currently in NSR. -Metoprolol Tartrate 5 mg IVP PRN, Cardizem 10 mg IVP Q4H PRN -hold heparin drip until cleared by surg -Cardio following GI #Sigmoid diverticulitis s/p sigmoid colectomy w/ colostomy, POD #0. -Per surg, pt had multiple hard stools found in colon with purulent fluid found in pelvis; multiple bowel perforations at site of hard stools. -cont IV Abx -IVf -Pain control -NPO -Head of bed elevated, morales/NG tube, monitor vitals ID #Sepsis 2/2 sigmoid diverticulitis with localized perforation -Meropenem 1gm -BCx neg x96hrs -Peritoneal fluid gram stain/cx pending -ID following Endocrinology #Hypothyroidism -Synthroid 50 mcg IVP QD Psych #Bipolar disorder -Hold home Beebe for now as pt is unable to take PO meds at this time. Prophylaxis GI- Pepcid DVT- SCDs FEN -LR @ 125 -recheck lytes in AM, replete PRN -NPO lines -NG tube -morales -colostomy dispo -full code -cont to monitor in ICU Visit type - Emergency Visit Emergency Visit: Yes ED Registration Date: 09/28/18 Care time: The patient presented to the Emergency Department on the above date and was hospitalized for further evaluation of their emergent condition. - New Patient This patient is new to me today: Yes Date on this admission: 10/02/18 - Critical Care Critical Care patient: Yes Total Critical Care Time (in minutes): 40 Critical Care Statement: The care of this patient involved high complexity decision making to prevent further life threatening deterioration of the patient 's condition and/or to evaluate & treat vital organ system(s) failure or risk of failure.
[2018-10-02] MEDS ORDERED: FENTANYL INJECTION 500 MCG in DEXTROSE 5%-WATER - 90 ML IVPB SCH ×2 (18:45→20:15)
--- NOTE | 2018-10-02 18:52 | OP ---
Operative Note - Note: Operative Date: 10/02/18 Pre-Operative Diagnosis: perforated diverticulitis Operation: sigmoidectomy with colostomy (Sidra's procedure) Findings: very hard stool balls in colon, purulent fluid in pelvis with peel on intestines and farrell of left lower quadrant, small bowel stuck in area with proximal dilation, distal sigmoid in pelvis with two adjacent holes in bowel wall at site of hard stool balls; sigmoid resected, descending colostomy performed, abd/pelvis washed out, NG palpated at GE junction going up into stomach in chest; fascia closed, skin left partially open and packed; 57mm ostomy appliance placed; taken intubated to ICU Post-Operative Diagnosis: Other (sigmoid stercoral perforation with peritonitis) Surgeon: Raudel Underwood Twisting Frame Operator: Chaz Torrez Anesthesiologist/DIE CLEANER: Wilda Chau (w/Davina Ozuna) Anesthesia: General Specimens Removed: sigmoid colon to pathology, peritoneal fluid cultures x2 Estimated Blood Loss (mls): 50 Drains & Tubes with Location: NG/Miguel preop, colostomy w/57mm bag/base Drains, Volume Out (mls): 300 (UOP) Fluid Volume Replaced (mls): 5,000 (crystalloid) Operative Report Dictated: Yes
[2018-10-02] MEDS: PROPOFOL 1,000,000 MCG/100 ML VIAL IVPB SCH (20:00)
[2018-10-02] MEDS ORDERED: METOPROLOL TARTRATE 5 MG/5 ML VIAL IVPUSH PRN (20:15)
[2018-10-02] MEDS ORDERED: dilTIAZem HCL 50 MG/10 ML - 10 ML VIAL IVPUSH PRN (20:15)
[2018-10-02] MEDS: ALBUTEROL SO4 2.5/IPRATROPIUM 0.5 INH SOL 3 ML VIAL.NEB. NEB SCH (20:18)
[2018-10-02 21:30] LABS: BASO % 0.1 % (0-2.0); EOS % 0.1 % (0-4.5); HEMATOCRIT 41.7 % (32.4-45.2); HEMOGLOBIN 13.9 GM/dL (10.7-15.3); LYMPH % 6.9 % (8-40); MCH 27.4 pg (25.7-33.7); MCHC 33.4 g/dl (32.0-36.0); MEAN PLT VOLUME 9.3 fl (7.5-11.1); MONO % 4.3 % (3.8-10.2); NEUT % 88.6 % (42.8-82.8); PLATELET COUNT 278 K/MM3 (134-434); RBC 5.08 M/mm3 (3.60-5.2); RDW 14.6 % (11.6-15.6)
[2018-10-02] MEDS: CHLORHEXIDINE GLUCONATE 4% CLEANSER FOR DECOLONIZATION TP SCH (21:38)
[2018-10-02] MEDS: MUPIROCIN 2% TOPICAL OINTMENT FOR DECOLONIZATION NS SCH (21:54)
[2018-10-02] MEDS: HEPARIN NA (PORCINE) 5,000 UNITS/ML 1ML VIAL SQ SCH (21:54)
[2018-10-02] MEDS: FENTANYL INJECTION 500 MCG in DEXTROSE 5%-WATER - 90 ML IVPB SCH (21:55)
[2018-10-02 21:59] LABS: ANION GAP 10 MMOL/L (8-16); BLOOD UREA NITROGEN 32 mg/dL (7-18); CHLORIDE 120 mmol/L (98-107); CO2 19 mmol/L (21-32); CREATININE 1.2 mg/dL (0.55-1.3); GLUCOSE,RANDOM 123 mg/dL (74-106); MAGNESIUM 1.7 mg/dL (1.8-2.4); POTASSIUM 4.3 mmol/L (3.5-5.1); SODIUM 148 mmol/L (136-145)
[2018-10-02] MEDS ORDERED: PT OWN MED DRAWER 7, Y5N ONE (23:41)
[2018-10-03 01:47] LABS: ANISOCYTOSIS 2+; MACROCYTOSIS 0; PLATELET ESTIMATE NORMAL
[2018-10-03] MEDS: MEROPENEM 1 GM in DEXTROSE 5%-WATER 100 ML IVPB SCH ×3 (02:26→17:14)
[2018-10-03] MEDS ORDERED: fentaNYL CITRATE 250 MCG/5 ML VIAL ONE ×3 (02:30→23:04)
[2018-10-03] MEDS ORDERED: PT OWN MED DRAWER 7, Y5N ONE ×4 (05:22→20:45)
[2018-10-03] MEDS: HEPARIN NA (PORCINE) 5,000 UNITS/ML 1ML VIAL SQ SCH (05:31)
[2018-10-03] MEDS: PROPOFOL 1,000,000 MCG/100 ML VIAL IVPB SCH ×2 (05:32→19:00)
[2018-10-03] MEDS: FENTANYL INJECTION 500 MCG in DEXTROSE 5%-WATER - 90 ML IVPB SCH ×3 (05:33→21:56)
[2018-10-03] MEDS: LACTATED RINGERS SOLUTION 1,000 ML/1,000 ML INFUS.BAG IV SCH ×2 (05:34→15:00)
[2018-10-03 06:11] LABS: BASO % 0.2 % (0-2.0); EOS % 0.4 % (0-4.5); HEMATOCRIT 37.2 % (32.4-45.2); HEMOGLOBIN 11.9 GM/dL (10.7-15.3); LYMPH % 6.8 % (8-40); MCH 26.7 pg (25.7-33.7); MEAN CELL VOLUME 83.5 fl (80-96); MEAN PLT VOLUME 8.7 fl (7.5-11.1); MONO % 5.7 % (3.8-10.2); NEUT % 86.9 % (42.8-82.8); PLATELET COUNT 231 K/MM3 (134-434); RBC 4.46 M/mm3 (3.60-5.2); RDW 14.3 % (11.6-15.6); WHITE BLOOD COUNT 10.9 K/mm3 (4.0-10.0)
[2018-10-03 06:34] LABS: INR 1.08 (0.83-1.09); PROTHROMBIN TIME (PATIENT) 12.7 SEC (9.7-13.0)
[2018-10-03 06:36] LABS: ACTIVATED PTT 25.7 SECONDS (25.2-36.5)
[2018-10-03 06:42] LABS: ALBUMIN 1.4 g/dl (3.4-5.0); ALK PHOS 62 U/L (45-117); ANION GAP 9 MMOL/L (8-16); BILIRUBIN,TOTAL 0.3 mg/dL (0.2-1); BLOOD UREA NITROGEN 36 mg/dL (7-18); CALCIUM 8.3 mg/dL (8.5-10.1); CHLORIDE 120 mmol/L (98-107); CO2 21 mmol/L (21-32); CREATININE 1.6 mg/dL (0.55-1.3); GLUCOSE,RANDOM 125 mg/dL (74-106); MAGNESIUM 1.8 mg/dL (1.8-2.4); POTASSIUM 4.4 mmol/L (3.5-5.1); SGOT/AST 18 U/L (15-37); SGPT/ALT 18 U/L (13-61); SODIUM 149 mmol/L (136-145); TOT PROT 3.9 g/dl (6.4-8.2)
[2018-10-03] MEDS ORDERED: LEVOTHYROXINE NA 100 MCG TABLET (FP) PO SCH (07:00)
--- NOTE | 2018-10-03 07:28 | PN ---
Physical Exam: SUBJECTIVE: Patient seen and examined at bedside. No acute events overnight. Pt now extubated. Blinks eyes on command. Complains of pain because of NG tube. OBJECTIVE: Vital Signs Period Temp Pulse Resp BP Sys/Choi Pulse Ox Last 24 Hr 98 F-98.3 F 75-120 10-79 102-155/67-87 95-99 GENERAL: Currently intubated, not responsive. HEENT: AT/NC. EOMI. HALI. Dry mucus membranes. NECK: Supple. LUNGS: CTA B/L. No wheezes noted. Symmetric chest rise. HEART: RRR. Normal S1, S2. No murmurs noted. ABDOMEN: Soft, NT/ND. Ostomy bag in place, no material seen. Surgical abdominal dressing dry and intact. MUSCULOSKELETAL: No peripheral edema noted. EXTREMITIES: 2+ dorsalis pedis pulses b/l. NEUROLOGICAL: Respond to commands. 10/03/18 05:30 10/03/18 05:30 CBCD WBC 10.9 K/mm3 (4.0-10.0) H 10/03/18 05:30 RBC 4.46 M/mm3 (3.60-5.2) 10/03/18 05:30 Hgb 11.9 GM/dL (10.7-15.3) 10/03/18 05:30 Hct 37.2 % (32.4-45.2) 10/03/18 05:30 MCV 83.5 fl (80-96) 10/03/18 05:30 MCHC 32.0 g/dl (32.0-36.0) 10/03/18 05:30 RDW 14.3 % (11.6-15.6) 10/03/18 05:30 Plt Count 231 K/MM3 (134-434) 10/03/18 05:30 MPV 8.7 fl (7.5-11.1) 10/03/18 05:30 CMP Sodium 149 mmol/L (136-145) H 10/03/18 05:30 Potassium 4.4 mmol/L (3.5-5.1) 10/03/18 05:30 Chloride 120 mmol/L (98-107) H 10/03/18 05:30 Carbon Dioxide 21 mmol/L (21-32) 10/03/18 05:30 Anion Gap 9 MMOL/L (8-16) 10/03/18 05:30 BUN 36 mg/dL (7-18) H 10/03/18 05:30 Creatinine 1.6 mg/dL (0.55-1.3) H 10/03/18 05:30 Creat Clearance w eGFR 31.96 (>60) 10/03/18 05:30 Calcium 8.3 mg/dL (8.5-10.1) L 10/03/18 05:30 Total Bilirubin 0.3 mg/dL (0.2-1) 10/03/18 05:30 AST 18 U/L (15-37) 10/03/18 05:30 ALT 18 U/L (13-61) 10/03/18 05:30 Alkaline Phosphatase 62 U/L (45-117) 10/03/18 05:30 Total Protein 3.9 g/dl (6.4-8.2) L 10/03/18 05:30 Albumin 1.4 g/dl (3.4-5.0) L 10/03/18 05:30 Active Medications Albuterol/Ipratropium (Duoneb -) 1 amp NEB RQID [facility] Last Admin: 10/02/18 20:18 Dose: 1 amp Chlorhexidine Gluconate (Hibiclens For Decolonization -) 1 applic TP HS [facility] Last Admin: 10/02/18 21:38 Dose: 1 applic Diltiazem HCl (Cardizem Injection -) 10 mg IVPUSH Q4H PRN PRN Reason: TACHYCARDIA Heparin Sodium (Porcine) (Heparin -) 5,000 unit SQ TID [facility] Last Admin: 10/03/18 05:31 Dose: 5,000 unit Propofol (Diprivan -) 1,000,000 mcg in 100 mls @ 2.01 mls/hr IVPB TITR [facility]; Protocol Last Admin: 10/03/18 05:32 Dose: 10 mcg/kg/min, 4.02 mls/hr Lactated Ringer's (Lactated Ringers Solution) 1,000 ml in 1,000 mls @ 125 mls/ hr IV ASDIR [facility] Last Admin: 10/03/18 05:34 Dose: 125 mls/hr Meropenem 1 gm/ Dextrose 100 mls @ 200 mls/hr IVPB Q8H-IV [facility] Last Admin: 10/03/18 02:26 Dose: 200 mls/hr Famotidine/Sodium Chloride (Pepcid 20 Mg Premixed Ivpb -) 20 mg in 50 mls @ 100 mls/hr IVPB BID [facility] Last Admin: 10/02/18 21:38 Dose: 100 mls/hr Fentanyl 500 mcg/ Dextrose 100 mls @ 10 mls/hr IVPB TITR [facility]; Protocol Last Admin: 10/03/18 05:33 Dose: 50 mcg/hr, 10 mls/hr Levothyroxine Sodium (Synthroid -) 100 mcg PO DAILY@0700 [facility] Levothyroxine Sodium (Synthroid Injection -) 50 mcg IVPUSH DAILY [facility] [place] Carbonate (Eskalith -) 300 mg PO DAILY [facility] Metoprolol Tartrate (Lopressor Injection -) 5 mg IVPUSH Q4H PRN PRN Reason: TACHYCARDIA Mupirocin (Bactroban Ointment (For Decolonization) -) 1 applic NS BID [facility] Stop: 10/07/18 21:59 Last Admin: 10/02/18 21:54 Dose: 1 applic ASSESSMENT/PLAN: 67F w/ pmhx of cholecystitis, chronic constipation, bipolar d/o, pneumoperitoneum s/p ex lap, sigmoid colectomy with colostomy, POD #1 (10/02/18) admitted to the ICU for post-op care . Neurology -Off sedation. Responds to commands, blinks eyes. -Currently on Fentanyl drip for pain. Pulmonary -Extubated. -Duonebs QID -repeat CXR pending Cardiology #New onset A. fib -Stable, pt currently in NSR. -Metoprolol Tartrate 5 mg IVP PRN, Cardizem 10 mg IVP Q4H PRN -hold heparin drip until cleared by surg -Cardio following GI #Sigmoid diverticulitis s/p sigmoid colectomy w/ colostomy, POD #1. -Per surg, pt had multiple hard stools found in colon with purulent fluid found in pelvis; multiple bowel perforations at site of hard stools. -cont IV Abx -IVf -Pain control -NPO -Head of bed elevated, morales/NG tube, monitor vitals ID #Sepsis 2/2 sigmoid diverticulitis with localized perforation -Afebrile. -Meropenem 1gm -BCx neg x96hrs -Peritoneal fluid gram stain/cx pending -ID following Endocrinology #Hypothyroidism -Synthroid 50 mcg IVP QD Psych #Bipolar disorder -Hold home [place] for now as pt is unable to take PO meds at this time. Prophylaxis GI- Pepcid DVT- SCDs FEN -LR @ 125 -recheck lytes in AM, replete PRN -NPO lines -NG tube -morales -colostomy dispo -full code -cont to monitor in ICU Visit type - Emergency Visit Emergency Visit: Yes ED Registration Date: 09/28/18 Care time: The patient presented to the Emergency Department on the above date and was hospitalized for further evaluation of their emergent condition. - New Patient This patient is new to me today: No - Critical Care Critical Care patient: Yes Total Critical Care Time (in minutes): 40 Critical Care Statement: The care of this patient involved high complexity decision making to prevent further life threatening deterioration of the patient 's condition and/or to evaluate & treat vital organ system(s) failure or risk of failure.
[2018-10-03] MEDS: ALBUTEROL SO4 2.5/IPRATROPIUM 0.5 INH SOL 3 ML VIAL.NEB. NEB SCH ×4 (08:00→20:48)
[2018-10-03] MEDS ORDERED: LACTATED RINGERS SOLUTION 1,000 ML/1,000 ML INFUS.BAG IV SCH (08:14)
--- NOTE | 2018-10-03 08:17 | PN ---
Progress Note (short form) - Note Progress Note: Post op day#1.S/P Exploratory lapratomy under ga uneventful.P 90,BP 107/69 and Spo2 98% on O2 50%.Patient stable and still intubated.No any anesthesia related problem.Patient Dc from the anesthesia care.
[2018-10-03] MEDS: MUPIROCIN 2% TOPICAL OINTMENT FOR DECOLONIZATION NS SCH ×2 (10:36→22:57)
[2018-10-03] MEDS: LEVOTHYROXINE SODIUM 100 MCG VIAL IVPUSH SCH (10:37)
[2018-10-03] MEDS: FAMOTIDINE 20 MG/50 ML IVPB 20 MG/50 ML MG IVPB SCH ×2 (10:37→22:58)
[2018-10-03] MEDS: LITHIUM CARBONATE 300 MG CAPSULE (FP) PO SCH (10:38)
--- NOTE | 2018-10-03 11:26 | PN ---
Physical Exam: SUBJECTIVE: Patient seen and examined at bedside. Patient is POD #1 from an ex- lap with small bowel resection requiring a colostomy bag ( which drained 400ml of loose brown stool). No vinod or post-operative complications. Patient is now sedated and intubated on propofol and fentanyl; will hopefully be extuabted today. Could not obtain ROS OBJECTIVE: Vital Signs Period Temp Pulse Resp BP Sys/Choi Pulse Ox Last 24 Hr 98.2 F-99.2 F 75-120 10-79 101-155/67-87 95-99 GENERAL: The patient is intubated and sedated EYES: pupils constricted B/L; khalida mucous membranes NECK: no JVD, no lymphadenopathy LUNGS: CTA B/L; no rales, rhonchi or wheezing HEART: Regular rate and rhythm, S1, S2 without murmur, rub or gallop. ABDOMEN: Soft,non-tender, non-distended; hypoactive BS, colostomy bag in place; surgical dressing clean/dry/intact EXTREMITIES: 2+ pulses, warm, well-perfused, no edema. NEUROLOGICAL: sedated on propofol drip SKIN: Warm, dry, normal turgor, no rashes or lesions noted Laboratory Results - last 24 hr 10/01/18 10/02/10/02/ 22:00 20:45 20:45 WBC 11.0 H RBC 5.08 Hgb 13.9 Hct 41.7 MCV 82.0 MCH 27.4 MCHC 33.4 RDW 14.6 Plt Count 278 D MPV 9.3 Absolute Neuts (auto) 9.8 H Neutrophils % 88.6 H Neutrophils % (Manual) 66.7 Band Neutrophils % 6.1 Lymphocytes % 6.9 L D Lymphocytes % (Manual) 9.1 D Monocytes % 4.3 Monocytes % (Manual) 1 L D Eosinophils % 0.1 D Eosinophils % (Manual) 5.0 H D Basophils % 0.1 Basophils % (Manual) 0.0 Myelocytes % (Man) 0 Promyelocytes % (Man) 0 Blast Cells % (Manual) 0 Nucleated RBC % 0 Metamyelocytes 0 Hypochromia 0 Platelet Estimate Normal Polychromasia 0 Poikilocytosis 1+ Anisocytosis 2+ Microcytosis 1+ Macrocytosis 0 PT with INR INR PTT (Actin FS) Sodium 148 H Potassium 4.3 Chloride 120 H Carbon Dioxide 19 L Anion Gap 10 BUN 32 H Creatinine 1.2 Creat Clearance w eGFR 44.54 Random Glucose 123 H Calcium 9.0 Phosphorus 4.0 Magnesium 1.7 L Total Bilirubin AST ALT Alkaline Phosphatase Total Protein Albumin Blood Type O POSITIVE Crossmatch IS Only See Detail 10/03/18 10/03/18 10/03/18 05:30 05:30 05:30 WBC 10.9 H RBC 4.46 Hgb 11.9 Hct 37.2 MCV 83.5 MCH 26.7 MCHC 32.0 RDW 14.3 Plt Count 231 MPV 8.7 Absolute Neuts (auto) 9.5 H Neutrophils % 86.9 H Neutrophils % (Manual) Band Neutrophils % Lymphocytes % 6.8 L Lymphocytes % (Manual) Monocytes % 5.7 Monocytes % (Manual) Eosinophils % 0.4 D Eosinophils % (Manual) Basophils % 0.2 Basophils % (Manual) Myelocytes % (Man) Promyelocytes % (Man) Blast Cells % (Manual) Nucleated RBC % 0 Metamyelocytes Hypochromia Platelet Estimate Polychromasia Poikilocytosis Anisocytosis Microcytosis Macrocytosis PT with INR 12.70 INR 1.08 PTT (Actin FS) 25.7 Sodium 149 H Potassium 4.4 Chloride 120 H Carbon Dioxide 21 Anion Gap 9 BUN 36 H Creatinine 1.6 H Creat Clearance w eGFR 31.96 Random Glucose 125 H Calcium 8.3 L Phosphorus 4.0 Magnesium 1.8 Total Bilirubin 0.3 AST 18 ALT 18 Alkaline Phosphatase 62 Total Protein 3.9 L Albumin 1.4 L Blood Type Crossmatch IS Only Active Medications Generic Name Dose Route Start Last Admin Trade Name Manuelq PRN Reason Stop Dose Admin Albuterol/Ipratropium 1 amp 10/02/18 20:00 10/03/18 08:00 Duoneb - NEB 1 amp RQID [facility] Administration Chlorhexidine Gluconate 1 applic 10/02/18 22:00 10/02/18 21:38 Hibiclens For Decolonization - TP 1 applic HS [facility] Administration Diltiazem HCl 10 mg 10/02/18 20:15 Cardizem Injection - IVPUSH Q4H PRN TACHYCARDIA Heparin Sodium (Porcine) 5,000 unit 10/02/18 22:00 10/03/18 05:31 Heparin - SQ 5,000 unit TID [facility] Administration Propofol 1,000,000 mcg in 100 mls @ 2.01 mls/hr 10/02/18 19:30 10/03/18 05:32 Diprivan - IVPB 10 mcg/kg/min TITR [facility] 4.02 mls/hr Administration Protocol 5 MCG/KG/MIN Meropenem 1 gm/ Dextrose 100 mls @ 200 mls/hr 10/03/18 02:00 10/03/18 10:37 IVPB 200 mls/hr Q8H-IV [facility] Administration Famotidine/Sodium Chloride 20 mg in 50 mls @ 100 mls/hr 10/02/18 22:00 10:37 Pepcid 20 Mg Premixed Ivpb - IVPB 100 mls/hr BID [facility] Administration Fentanyl 500 mcg/ Dextrose 100 mls @ 10 mls/hr 10/02/18 21:37 10/03/18 05:33 IVPB 50 mcg/hr TITR [facility] 10 mls/hr Administration Protocol 50 MCG/HR Lactated Ringer's 1,000 ml in 1,000 mls @ 150 mls/hr 10/03/18 08:14 10/03/18 09:30 Lactated Ringers Solution IV 150 mls/hr ASDIR [facility] Administration Levothyroxine Sodium 100 mcg 10/03/18 07:00 Synthroid - PO DAILY@0700 [facility] Levothyroxine Sodium 50 mcg 10/03/18 10:00 10/03/18 10:37 Synthroid Injection - IVPUSH 50 mcg DAILY [facility] Administration [place] Carbonate 300 mg 10/03/18 10:00 10/03/18 10:38 Eskalith - PO Not Given DAILY [facility] Metoprolol Tartrate 5 mg 10/02/18 20:15 Lopressor Injection - IVPUSH Q4H PRN TACHYCARDIA Mupirocin 1 applic 10/02/18 22:00 10/03/18 10:36 Bactroban Ointment (For Decolonization) - NS 10/07/18 21:59 1 applic BID [facility] Administration ASSESSMENT/PLAN: 67 y/o female with PMH of cholecystitis and bipolar disorder presented to the ED with abdominal pain and constipation since found to have a 5x4.3x3.4 oval shaped structure with air possible representing an inflamed diverticulum vs. a contained perforation #POD #1 ex-lap and small bowel resection -patient underwent ex-lap with small bowel resection and ostomy creation yesterday -currently intuabted and sedated on propofol and fentanyl -peritoneal cx sent; -meropenem day 1; ID on board -f/u surgery recs -monitor hemodynamics -LR@ 150mls/hr -monitor WBC and for signs of infection -monitor ostomy output -currently in ICU #New onset Afib -patient has been in sinus overnight -metoprolol tartrate 50 BID with lopressor 5mg PRN -on Heparin drip for AC -cardio on board #Bipolar Disorder -c/w with lithium #Hypothyroidism -c/w synthroid F/E/N LR @150mls/hr monitor electrolytes NPO DVT PPX: Heparin drip Problem List - Problems (1) Abdominal pain Code(s): R10.9 - UNSPECIFIED ABDOMINAL PAIN Qualifiers: Abdominal location: unspecified location Qualified Code(s): R10.9 - Unspecified abdominal pain (2) Abnormal CT scan, sigmoid colon Code(s): R93.3 - ABNORMAL FINDINGS ON DX IMAGING OF PRT DIGESTIVE TRACT (3) Bipolar disorder Code(s): F31.9 - BIPOLAR DISORDER, UNSPECIFIED Qualifiers: Active/Remission status: in remission of unspecified degree Qualified Code( s): F31.70 - Bipolar disorder, currently in remission, most recent episode unspecified Visit type - Emergency Visit Emergency Visit: Yes ED Registration Date: 09/28/18 Care time: The patient presented to the Emergency Department on the above date and was hospitalized for further evaluation of their emergent condition. - New Patient This patient is new to me today: No - Critical Care Critical Care patient: No
--- NOTE | 2018-10-03 11:29 | PN ---
Progress Note, Physician History of Present Illness: Extubated on 40% VM POD#1 sigmoidectomy with colostomy (Sidra's procedure) for sigmoid stercoral perforation with peritonitis. Bursts of PAF with RVR on IV Lopressor. - Current Medication List Current Medications: Active Medications Albuterol/Ipratropium (Duoneb -) 1 amp NEB RQID [facility] Last Admin: 10/03/18 08:00 Dose: 1 amp Chlorhexidine Gluconate (Hibiclens For Decolonization -) 1 applic TP HS [facility] Last Admin: 10/02/18 21:38 Dose: 1 applic Diltiazem HCl (Cardizem Injection -) 10 mg IVPUSH Q4H PRN PRN Reason: TACHYCARDIA Heparin Sodium (Porcine) (Heparin -) 5,000 unit SQ TID [facility] Last Admin: 10/03/18 05:31 Dose: 5,000 unit Propofol (Diprivan -) 1,000,000 mcg in 100 mls @ 2.01 mls/hr IVPB TITR [facility]; Protocol Last Admin: 10/03/18 05:32 Dose: 10 mcg/kg/min, 4.02 mls/hr Meropenem 1 gm/ Dextrose 100 mls @ 200 mls/hr IVPB Q8H-IV [facility] Last Admin: 10/03/18 10:37 Dose: 200 mls/hr Famotidine/Sodium Chloride (Pepcid 20 Mg Premixed Ivpb -) 20 mg in 50 mls @ 100 mls/hr IVPB BID [facility] Last Admin: 10/03/18 10:37 Dose: 100 mls/hr Fentanyl 500 mcg/ Dextrose 100 mls @ 10 mls/hr IVPB TITR [facility]; Protocol Last Admin: 10/03/18 05:33 Dose: 50 mcg/hr, 10 mls/hr Lactated Ringer's (Lactated Ringers Solution) 1,000 ml in 1,000 mls @ 150 mls/ hr IV ASDIR [facility] Last Admin: 10/03/18 09:30 Dose: 150 mls/hr Levothyroxine Sodium (Synthroid -) 100 mcg PO DAILY@0700 [facility] Levothyroxine Sodium (Synthroid Injection -) 50 mcg IVPUSH DAILY [facility] Last Admin: 10/03/18 10:37 Dose: 50 mcg [place] Carbonate (Eskalith -) 300 mg PO DAILY [facility] Last Admin: 10/03/18 10:38 Dose: Not Given Metoprolol Tartrate (Lopressor Injection -) 5 mg IVPUSH Q4H PRN PRN Reason: TACHYCARDIA Mupirocin (Bactroban Ointment (For Decolonization) -) 1 applic NS BID [facility] Stop: 10/07/18 21:59 Last Admin: 10/03/18 10:36 Dose: 1 applic - Objective Vital Signs: Vital Signs Temperature 99.2 F 10/03/18 09:56 Pulse Rate 104 H 10/03/18 09:56 Respiratory Rate 16 10/03/18 09:56 Blood Pressure 101/69 10/03/18 09:56 O2 Sat by Pulse Oximetry (%) 96 10/03/18 08:45 Constitutional: Yes: No Distress, Calm Neck: Yes: Supple Cardiovascular: Yes: Tachycardia, Pulse Irregular Respiratory: Yes: Regular, Diminished, On Venti-Mask Gastrointestinal: Yes: Hypoactive Bowel Sounds Edema: No Labs: CBC, BMP 10/03/18 05:30 10/03/18 05:30 INR, PTT INR 1.08 (0.83-1.09) 10/03/18 05:30 - ....Imaging Chest X-ray: Report Reviewed (NAD) EKG: Report Reviewed (Tele: PAF with RVR) Problem List - Problems (1) Diverticulitis of large intestine with perforation without abscess or bleeding Code(s): K57.20 - DVTRCLI OF LG INT W PERFORATION AND ABSCESS W/O BLEEDING (2) Hyperlipidemia Code(s): E78.5 - HYPERLIPIDEMIA, UNSPECIFIED Qualifiers: Hyperlipidemia type: unspecified Qualified Code(s): E78.5 - Hyperlipidemia , unspecified (3) Hypertension Code(s): I10 - ESSENTIAL (PRIMARY) HYPERTENSION Qualifiers: Hypertension type: essential hypertension Qualified Code(s): I10 - Essential (primary) hypertension (4) Hypothyroidism Code(s): E03.9 - HYPOTHYROIDISM, UNSPECIFIED Qualifiers: Hypothyroidism type: unspecified Qualified Code(s): E03.9 - Hypothyroidism , unspecified (5) Paroxysmal atrial fibrillation Code(s): I48.0 - PAROXYSMAL ATRIAL FIBRILLATION (6) History of open sigmoidectomy Code(s): Z98.890 - OTHER SPECIFIED POSTPROCEDURAL STATES; Z90.49 - ACQUIRED ABSENCE OF OTHER SPECIFIED PARTS OF DIGESTIVE TRACT Assessment/Plan 09/30/2018 Echo: Normal LV size and fxn LVEF 60-65%, mildly impaired LV compliance, normal RV fxn, normal atrial sizes, mild TR, trace-mild MR 1. POD#1 sigmoidectomy with colostomy (Sidra's procedure) for sigmoid stercoral perforation with peritonitis 2. Paroxysmal AF in SR [id number] score of 3 3. Hypertension 4. Hypothyroidism 5. Bipolar disorder 6. Diastolic dysfunction 7. Acute on CKD (pre-renal) PLAN: 1. Resume a/c once post-op hemostasis achieved. Continue IV Lopressor and Cardizem for rate control 2. Empiric antibiotic course 3. IV hydration with monitoring renal function and electrolytes 4. Wound care 5. BD, wean FIO2 as tolerated, DVT and GI prophylaxis
--- NOTE | 2018-10-03 11:44 | PN ---
Teaching Attending Note Name of Resident: Yaima Baeza ATTENDING PHYSICIAN STATEMENT I saw and evaluated the patient. I reviewed the resident's note and discussed the case with the resident. I agree with the resident's findings and plan as documented with exceptions below. SUBJECTIVE: Patient seen and examined, opens eyes to voice, still intubated, off sedation. Not interactive with interview yet. Unable to assess for ROS. OBJECTIVE: Vital Signs Period Temp Pulse Resp BP Sys/Choi Pulse Ox Last 24 Hr 98.2 F-99.2 F 75-120 10-79 101-155/67-87 95-99 Intake & Output 09/30/18 10/01/18 10/02/18 10/03/18 23:59 23:59 23:59 23:59 Intake Total 2870 4170 6522 1150 Output Total 376 346 2123 330 Balance 2670 3670 4622 820 Weight 165 lb General: intubated, opens eyes to voice, biting on the vent HEENT: NG tube in place Chest: decreased effort, decreased breath sounds at bases Abdomen:soft, improved distension, unable to appreciate bowel sounds, midline clean surgical dressing, colostomy in place, no surrounding discharge or erythema Extremities: no edema Active Medications Albuterol/Ipratropium (Duoneb -) 1 amp NEB RQID [facility] Last Admin: 10/03/18 08:00 Dose: 1 amp Chlorhexidine Gluconate (Hibiclens For Decolonization -) 1 applic TP HS [facility] Last Admin: 10/02/18 21:38 Dose: 1 applic Diltiazem HCl (Cardizem Injection -) 10 mg IVPUSH Q4H PRN PRN Reason: TACHYCARDIA Heparin Sodium (Porcine) (Heparin -) 5,000 unit SQ TID [facility] Last Admin: 10/03/18 05:31 Dose: 5,000 unit Propofol (Diprivan -) 1,000,000 mcg in 100 mls @ 2.01 mls/hr IVPB TITR [facility]; Protocol Last Admin: 10/03/18 05:32 Dose: 10 mcg/kg/min, 4.02 mls/hr Meropenem 1 gm/ Dextrose 100 mls @ 200 mls/hr IVPB Q8H-IV [facility] Last Admin: 10/03/18 10:37 Dose: 200 mls/hr Famotidine/Sodium Chloride (Pepcid 20 Mg Premixed Ivpb -) 20 mg in 50 mls @ 100 mls/hr IVPB BID [facility] Last Admin: 10/03/18 10:37 Dose: 100 mls/hr Fentanyl 500 mcg/ Dextrose 100 mls @ 10 mls/hr IVPB TITR [facility]; Protocol Last Admin: 10/03/18 05:33 Dose: 50 mcg/hr, 10 mls/hr Lactated Ringer's (Lactated Ringers Solution) 1,000 ml in 1,000 mls @ 150 mls/ hr IV ASDIR [facility] Last Admin: 10/03/18 09:30 Dose: 150 mls/hr Levothyroxine Sodium (Synthroid -) 100 mcg PO DAILY@0700 [facility] Levothyroxine Sodium (Synthroid Injection -) 50 mcg IVPUSH DAILY [facility] Last Admin: 10/03/18 10:37 Dose: 50 mcg [place] Carbonate (Eskalith -) 300 mg PO DAILY [facility] Last Admin: 10/03/18 10:38 Dose: Not Given Metoprolol Tartrate (Lopressor Injection -) 5 mg IVPUSH Q4H PRN PRN Reason: TACHYCARDIA Mupirocin (Bactroban Ointment (For Decolonization) -) 1 applic NS BID [facility] Stop: 10/07/18 21:59 Last Admin: 10/03/18 10:36 Dose: 1 applic Laboratory Results - last 24 hr 10/01/18 10/02/18 10/02/18 22:00 20:45 20:45 WBC 11.0 H RBC 5.08 Hgb 13.9 Hct 41.7 MCV 82.0 MCH 27.4 MCHC 33.4 RDW 14.6 Plt Count 278 D MPV 9.3 Absolute Neuts (auto) 9.8 H Neutrophils % 88.6 H Neutrophils % (Manual) 66.7 Band Neutrophils % 6.1 Lymphocytes % 6.9 L D Lymphocytes % (Manual) 9.1 D Monocytes % 4.3 Monocytes % (Manual) 1 L D Eosinophils % 0.1 D Eosinophils % (Manual) 5.0 H D Basophils % 0.1 Basophils % (Manual) 0.0 Myelocytes % (Man) 0 Promyelocytes % (Man) 0 Blast Cells % (Manual) 0 Nucleated RBC % 0 Metamyelocytes 0 Hypochromia 0 Platelet Estimate Normal Polychromasia 0 Poikilocytosis 1+ Anisocytosis 2+ Microcytosis 1+ Macrocytosis 0 PT with INR INR PTT (Actin FS) Sodium 148 H Potassium 4.3 Chloride 120 H Carbon Dioxide 19 L Anion Gap 10 BUN 32 H Creatinine 1.2 Creat Clearance w eGFR 44.54 Random Glucose 123 H Calcium 9.0 Phosphorus 4.0 Magnesium 1.7 L Total Bilirubin AST ALT Alkaline Phosphatase Total Protein Albumin Blood Type O POSITIVE Crossmatch IS Only See Detail 10/03/18 10/03/18 10/03/18 05:30 05:30 05:30 WBC 10.9 H RBC 4.46 Hgb 11.9 Hct 37.2 MCV 83.5 MCH 26.7 MCHC 32.0 RDW 14.3 Plt Count 231 MPV 8.7 Absolute Neuts (auto) 9.5 H Neutrophils % 86.9 H Neutrophils % (Manual) Band Neutrophils % Lymphocytes % 6.8 L Lymphocytes % (Manual) Monocytes % 5.7 Monocytes % (Manual) Eosinophils % 0.4 D Eosinophils % (Manual) Basophils % 0.2 Basophils % (Manual) Myelocytes % (Man) Promyelocytes % (Man) Blast Cells % (Manual) Nucleated RBC % 0 Metamyelocytes Hypochromia Platelet Estimate Polychromasia Poikilocytosis Anisocytosis Microcytosis Macrocytosis PT with INR 12.70 INR 1.08 PTT (Actin FS) 25.7 Sodium 149 H Potassium 4.4 Chloride 120 H Carbon Dioxide 21 Anion Gap 9 BUN 36 H Creatinine 1.6 H Creat Clearance w eGFR 31.96 Random Glucose 125 H Calcium 8.3 L Phosphorus 4.0 Magnesium 1.8 Total Bilirubin 0.3 AST 18 ALT 18 Alkaline Phosphatase 62 Total Protein 3.9 L Albumin 1.4 L Blood Type Crossmatch IS Only Microbiology 09/28/18 15:15 Blood - Peripheral Venous Blood Culture - Preliminary NO GROWTH OBTAINED AFTER 96 HOURS, INCUBATION TO CONTINUE FOR 1 DAYS. 09/28/18 14:52 Blood - Peripheral Venous Blood Culture - Preliminary NO GROWTH OBTAINED AFTER 96 HOURS, INCUBATION TO CONTINUE FOR 1 DAYS. ASSESSMENT AND PLAN: 67yo F wtih PMH cholecystitis and bipolar presented with abdominal pain and constipation for [address] + 5.4x4.3x3.4cm pocket concerning for large inflammed diverticulum vs contained perforation, found with new onset Afib with RVR. -Sepsis due suspected sigmoid diverticulitis with localized perforation now with concerns for abscess/worsening edema s/p sigmoid resection with colostomy ( kassandra's procedure) 10/02 -Bowel obstruction+/- ileus likely from above -acute respiratory distress, suspect from progressive abdominal distension/ Large hiatal hernia/atelectasis+/- sepsis, less likley CHF/ARDS currently -Acute hypoxic respiratory failure s/p prolonged post op intubation -New onset Afib with RVR -Hypokalemia -MONIKA, cr rising, likely from hypovolumia/progressive sepsis and vinod-operative fluid shift -Hypernatremia, suspect from hypovolumia/third spacing -Dilated CBD, asymptomatic -Bipolar disorder -Plan: POD 1 Off sedation, weaning trial. Meropenem day 2. Blood cx neg so far. Wound care per surgery. NPO with NG drainage. REnal consult. Change IVF to D5-1/2 NS. Currently in NSR with PACs. Resume heparin drip per surgery. Metoprolol IV prn, placed on standing based on HR and BP readings. PO lithium when able to take PO Change levothyroxine to IV for now. DVTPPX heparin drip, to be resume per surgery. Dispo critically ill with progressive clinical deterioration, s/p urgent surgery. PLan co-ordinated with ICU team and nursing. Total critical care time spent 40 min.
[2018-10-03] MEDS ORDERED: DEXTROSE 5%-0.45% SALINE 1,000 ML IV SCH ×2 (12:00)
--- NOTE | 2018-10-03 13:43 | PN ---
Progress Note, Physician History of Present Illness: patient post op extubated now stable ng in place colostomy in place dressing wet - Current Medication List Current Medications: Active Medications Albuterol/Ipratropium (Duoneb -) 1 amp NEB RQID [facility] Last Admin: 10/03/18 11:48 Dose: 1 amp Chlorhexidine Gluconate (Hibiclens For Decolonization -) 1 applic TP HS [facility] Last Admin: 10/02/18 21:38 Dose: 1 applic Diltiazem HCl (Cardizem Injection -) 10 mg IVPUSH Q4H PRN PRN Reason: TACHYCARDIA Heparin Sodium (Porcine) (Heparin -) 5,000 unit SQ TID [facility] Last Admin: 10/03/18 05:31 Dose: 5,000 unit Propofol (Diprivan -) 1,000,000 mcg in 100 mls @ 2.01 mls/hr IVPB TITR [facility]; Protocol Last Admin: 10/03/18 05:32 Dose: 10 mcg/kg/min, 4.02 mls/hr Meropenem 1 gm/ Dextrose 100 mls @ 200 mls/hr IVPB Q8H-IV [facility] Last Admin: 10/03/18 10:37 Dose: 200 mls/hr Famotidine/Sodium Chloride (Pepcid 20 Mg Premixed Ivpb -) 20 mg in 50 mls @ 100 mls/hr IVPB BID [facility] Last Admin: 10/03/18 10:37 Dose: 100 mls/hr Fentanyl 500 mcg/ Dextrose 100 mls @ 10 mls/hr IVPB TITR [facility]; Protocol Last Admin: 10/03/18 05:33 Dose: 50 mcg/hr, 10 mls/hr Dextrose/Sodium Chloride (D5-1/2ns -) 1,000 mls @ 125 mls/hr IV ASDIR [facility] Levothyroxine Sodium (Synthroid -) 100 mcg PO DAILY@0700 [facility] Levothyroxine Sodium (Synthroid Injection -) 50 mcg IVPUSH DAILY [facility] Last Admin: 10/03/18 10:37 Dose: 50 mcg [place] Carbonate (Eskalith -) 300 mg PO DAILY [facility] Last Admin: 10/03/18 10:38 Dose: Not Given Metoprolol Tartrate (Lopressor Injection -) 5 mg IVPUSH Q4H PRN PRN Reason: TACHYCARDIA Mupirocin (Bactroban Ointment (For Decolonization) -) 1 applic NS BID [facility] Stop: 10/07/18 21:59 Last Admin: 10/03/18 10:36 Dose: 1 applic - Objective Vital Signs: Vital Signs Temperature 99.2 F 10/03/18 10:00 Pulse Rate 102 H 10/03/18 12:00 Respiratory Rate 16 10/03/18 12:00 Blood Pressure 130/84 10/03/18 12:00 O2 Sat by Pulse Oximetry (%) 97 10/03/18 11:48 Constitutional: Yes: Anxious, Mild Distress, Other Cardiovascular: Yes: Regular Rate and Rhythm Respiratory: Yes: On Nasal O2, Poor Air Entry, Rhonchi Gastrointestinal: Yes: Other (absent bowel sounds,colostomy in place) Musculoskeletal: Yes: WNL Extremities: Yes: WNL Wound/Incision: Yes: Draining (dressing wet) Neurological: Yes: Alert Psychiatric: Yes: Alert Labs: CBC, BMP 10/03/18 05:30 10/03/18 05:30 INR, PTT INR 1.08 (0.83-1.09) 10/03/18 05:30 Assessment/Plan - Problems (1) Diverticulitis of large intestine with perforation without abscess or bleeding Code(s): K57.20 - DVTRCLI OF LG INT W PERFORATION AND ABSCESS W/O BLEEDING (2) Suprapubic pain Code(s): R10.2 - PELVIC AND PERINEAL PAIN (3) Constipation Code(s): K59.00 - CONSTIPATION, UNSPECIFIED Qualifiers: Constipation type: other constipation type Qualified Code(s): K59.09 - Other constipation (4) Paroxysmal atrial fibrillation Code(s): I48.0 - PAROXYSMAL ATRIAL FIBRILLATION (5) Bipolar disorder Code(s): F31.9 - BIPOLAR DISORDER, UNSPECIFIED Qualifiers: Active/Remission status: in remission of unspecified degree Qualified Code( s): F31.70 - Bipolar disorder, currently in remission, most recent episode unspecified (6) Hypertension Code(s): I10 - ESSENTIAL (PRIMARY) HYPERTENSION Qualifiers: Hypertension type: essential hypertension Qualified Code(s): I10 - Essential (primary) hypertension (7) Hyperlipidemia Code(s): E78.5 - HYPERLIPIDEMIA, UNSPECIFIED Qualifiers: Hyperlipidemia type: unspecified Qualified Code(s): E78.5 - Hyperlipidemia , unspecified (8) Hypothyroidism Code(s): E03.9 - HYPOTHYROIDISM, UNSPECIFIED Qualifiers: Hypothyroidism type: unspecified Qualified Code(s): E03.9 - Hypothyroidism , unspecified (9) Hiatal hernia without gangrene or obstruction Code(s): K44.9 - DIAPHRAGMATIC HERNIA WITHOUT OBSTRUCTION OR GANGRENE plan hydration continue meropenam ng tube suction rest as per icu monitor colostomy wound care rest as per surgery cc 40 min
[2018-10-03 14:08] LABS: ACANTHOCYTES 0; ANISOCYTOSIS 0; HELMET CELLS 0; HOWELL-JOLLY BODIES 0; MACROCYTOSIS 0; OVALOCYTE 0; PLATELET ESTIMATE NORMAL; ROULEAU 0; SICKELED CELLS 0; TARGET CELLS 0; TEAR DROP CELLS 0; TOXIC GRANULATION 0
--- NOTE | 2018-10-03 14:12 | CONSULT ---
Consult - text type - Consultation Consultation Note: Renal Consult for MONIKA This is a 67 year old woman with hx of bipolar disorder, cholecystitis who presented with constipation and lower abd pain and found to have diverticulosis and new Afib with subsequent development of perforation with MONIKA. s/p sigmoidectomy with colostomy (Sidra's procedure) on 10/02. Pt is awake and alert at the bedside, requesting to be left alone and have the lights turned off. Denies being in acute pain. Cr was noted to rise to 1.6 this am. Making urine via morales. BP was marginal and pt on IVF currenty. PMHx: as above Allergies: PCN Family Hx: NC social Hx: No T/A/D ROS: limited because of clinical status Home Medications Medication Instructions Recorded Atorvastatin Ca [Lipitor] 5 mg PO HS 02/23/17 Levothyroxine [Synthroid -] 100 mcg PO DAILY 02/23/17 [place] Carbonate [Eskalith -] 300 mg PO DAILY 02/23/17 Meclizine HCl 12.5 mg PO BID PRN 02/23/17 Rizatriptan Benzoate [Maxalt] 10 mg PO PRN PRN 02/23/17 Loratadine [Claritin] 10 mg PO DAILY 09/27/18 Calcium Carb, Citrate/Vit D3 1 each PO BID 09/29/18 [Citracal + D ER Tablet] Glucosa Te[place] 2Kcl/Chondroitin Te[place]ira 2 each PO DAILY 09/29/18 [Glucosamine & Chondroitin Cap] Oxybutynin Chloride 5 mg PO DAILY 09/29/18 Sodium Chloride [Saline Nasal 45 ml NS PRN PRN 09/29/18 [place]] Vital Signs Temperature 98.1 F 10/03/18 13:58 Pulse Rate 101 H 10/03/18 13:58 Respiratory Rate 16 10/03/18 13:58 Blood Pressure 103/84 10/03/18 13:58 O2 Sat by Pulse Oximetry (%) 97 10/03/18 11:48 Intake & Output 09/30/18 10/01/18 10/02/18 10/03/18 23:59 23:59 23:59 23:59 Intake Total 2870 4170 6522 1150 Output Total 170 731 3012 330 Balance 2670 3670 4622 820 Weight 74.843 kg NAD neck supple, no JVD NGT in place RRR Dec BS, no rales soft, midl distension, colostomy in place no LE edema, cyanosis or clubbing morales in place CBC, BMP 10/03/18 05:30 10/03/18 05:30 Laboratory Tests 10/03/18 05:30 Calcium 8.3 L Phosphorus 4.0 Magnesium 1.8 Albumin 1.4 L Current Medications Albuterol/Ipratropium (Duoneb -) 1 amp NEB RQID [facility] Last Admin: 10/03/18 11:48 Dose: 1 amp Chlorhexidine Gluconate (Hibiclens For Decolonization -) 1 applic TP HS [facility] Last Admin: 10/02/18 21:38 Dose: 1 applic Diltiazem HCl (Cardizem Injection -) 10 mg IVPUSH Q4H PRN PRN Reason: TACHYCARDIA Heparin Sodium (Porcine) (Heparin -) 5,000 unit SQ TID [facility] Last Admin: 10/03/18 05:31 Dose: 5,000 unit Propofol (Diprivan -) 1,000,000 mcg in 100 mls @ 2.01 mls/hr IVPB TITR [facility]; Protocol Last Admin: 10/03/18 05:32 Dose: 10 mcg/kg/min, 4.02 mls/hr Meropenem 1 gm/ Dextrose 100 mls @ 200 mls/hr IVPB Q8H-IV [facility] Last Admin: 10/03/18 10:37 Dose: 200 mls/hr Famotidine/Sodium Chloride (Pepcid 20 Mg Premixed Ivpb -) 20 mg in 50 mls @ 100 mls/hr IVPB BID [facility] Last Admin: 10/03/18 10:37 Dose: 100 mls/hr Fentanyl 500 mcg/ Dextrose 100 mls @ 10 mls/hr IVPB TITR [facility]; Protocol Last Admin: 10/03/18 05:33 Dose: 50 mcg/hr, 10 mls/hr Dextrose/Sodium Chloride (D5-1/2ns -) 1,000 mls @ 125 mls/hr IV ASDIR [facility] Levothyroxine Sodium (Synthroid -) 100 mcg PO DAILY@0700 [facility] Levothyroxine Sodium (Synthroid Injection -) 50 mcg IVPUSH DAILY [facility] Last Admin: 10/03/18 10:37 Dose: 50 mcg [place] Carbonate (Eskalith -) 300 mg PO DAILY [facility] Last Admin: 10/03/18 10:38 Dose: Not Given Metoprolol Tartrate (Lopressor Injection -) 5 mg IVPUSH Q4H PRN PRN Reason: TACHYCARDIA Mupirocin (Bactroban Ointment (For Decolonization) -) 1 applic NS BID [facility] Stop: 10/07/18 21:59 Last Admin: 10/03/18 10:36 Dose: 1 applic 67 year old woman with hx of bipolar disorder, cholecystitis who presented with constipation and lower abd pain and found to have acute diverticulosis and new Afib with subsequent development of ileus with MONIKA. #MONIKA likely due to renal hypoprofuion/volume shifts in setting of abdominal infection/sepsis (bland urine sediment, prior abd imaging showed no obstruction in urine flow) #Diverticulitis/Ileus s/p surgical intervention #New Afib #Hypernatremia (water deficit ~2.8L) #hypoalbuminemia Will change IVF to isotonic IVF to maintain intravascular volume and organ profusion will need to keep MAP > 65-70 Maintain morales until renal function stabliaizes to ensure pt remains non- oliguirc Would check renal function and chemistries twice daily may need TPN at some point given very low albumin levels and NPO status but will reaccess daily Continue Abx as per ID, continue surgical follow up supportive care ICU monitoring Thank you Sulaiman Zarate DO
--- NOTE | 2018-10-03 15:11 | PN ---
Teaching Attending Note Name of Resident: Valeria Fox ATTENDING PHYSICIAN STATEMENT I saw and evaluated the patient. I reviewed the resident's note and discussed the case with the resident. I agree with the resident's findings and plan as documented. SUBJECTIVE: Patient seen and examined in the ICU. Remains intubated and lightly sedated. No pressors. AC Mode of vent, 40% FiO2. Intake & Output 09/30/18 10/01/18 10/02/18 10/03/18 23:59 23:59 23:59 23:59 Intake Total 2870 4170 6522 1150 Output Total 233 377 2230 780 Balance 2670 3670 4622 370 Weight 165 lb Last Vital Signs Temp Pulse Resp BP Pulse Ox 98.1 F 101 H 16 103/84 97 10/03/18 13:58 10/03/18 13:58 10/03/18 13:58 10/03/18 13:58 10/03/18 11:48 Active Medications Albuterol/Ipratropium (Duoneb -) 1 amp NEB RQID [facility] Last Admin: 10/03/18 11:48 Dose: 1 amp Chlorhexidine Gluconate (Hibiclens For Decolonization -) 1 applic TP HS [facility] Last Admin: 10/02/18 21:38 Dose: 1 applic Diltiazem HCl (Cardizem Injection -) 10 mg IVPUSH Q4H PRN PRN Reason: TACHYCARDIA Heparin Sodium (Porcine) (Heparin -) 5,000 unit SQ TID [facility] Last Admin: 10/03/18 05:31 Dose: 5,000 unit Propofol (Diprivan -) 1,000,000 mcg in 100 mls @ 2.01 mls/hr IVPB TITR [facility]; Protocol Last Admin: 10/03/18 05:32 Dose: 10 mcg/kg/min, 4.02 mls/hr Meropenem 1 gm/ Dextrose 100 mls @ 200 mls/hr IVPB Q8H-IV [facility] Last Admin: 10/03/18 10:37 Dose: 200 mls/hr Famotidine/Sodium Chloride (Pepcid 20 Mg Premixed Ivpb -) 20 mg in 50 mls @ 100 mls/hr IVPB BID [facility] Last Admin: 10/03/18 10:37 Dose: 100 mls/hr Fentanyl 500 mcg/ Dextrose 100 mls @ 10 mls/hr IVPB TITR [facility]; Protocol Last Admin: 10/03/18 05:33 Dose: 50 mcg/hr, 10 mls/hr Lactated Ringer's (Lactated Ringers Solution) 1,000 ml in 1,000 mls @ 125 mls/ hr IV ASDIR [facility] Levothyroxine Sodium (Synthroid -) 100 mcg PO DAILY@0700 [facility] Levothyroxine Sodium (Synthroid Injection -) 50 mcg IVPUSH DAILY [facility] Last Admin: 10/03/18 10:37 Dose: 50 mcg [place] Carbonate (Eskalith -) 300 mg PO DAILY [facility] Last Admin: 10/03/18 10:38 Dose: Not Given Metoprolol Tartrate (Lopressor Injection -) 5 mg IVPUSH Q4H PRN PRN Reason: TACHYCARDIA Mupirocin (Bactroban Ointment (For Decolonization) -) 1 applic NS BID [facility] Stop: 10/07/18 21:59 Last Admin: 10/03/18 10:36 Dose: 1 applic GENERAL: Currently intubated, responsive. HEENT: AT/NC. Dry mucus membranes. NECK: Supple. LUNGS: few rhonchi. No wheezes HEART: RRR. Normal S1, S2. No murmurs noted. ABDOMEN: Soft, NT/ND. Ostomy bag in place. Surgical abdominal dressing c/d/i. MUSCULOSKELETAL: No peripheral edema noted. EXTREMITIES: 2+ dorsalis pedis pulses b/l. NEUROLOGICAL: Non-focal. Laboratory Results - last 24 hr 10/02/18 10/02/18 10/03/18 20:45 20:45 05:30 WBC 11.0 H RBC 5.08 Hgb 13.9 Hct 41.7 MCV 82.0 MCH 27.4 MCHC 33.4 RDW 14.6 Plt Count 278 D MPV 9.3 Absolute Neuts (auto) 9.8 H Neutrophils % 88.6 H Neutrophils % (Manual) 66.7 Band Neutrophils % 6.1 Lymphocytes % 6.9 L D Lymphocytes % (Manual) 9.1 D Monocytes % 4.3 Monocytes % (Manual) 1 L D Eosinophils % 0.1 D Eosinophils % (Manual) 5.0 H D Basophils % 0.1 Basophils % (Manual) 0.0 Myelocytes % (Man) 0 Promyelocytes % (Man) 0 Blast Cells % (Manual) 0 Nucleated RBC % 0 Metamyelocytes 0 Hypochromia 0 Toxic Granulation Dohle Bodies Platelet Estimate Normal Polychromasia 0 Poikilocytosis 1+ Basophilic Stippling Anisocytosis 2+ Microcytosis 1+ Macrocytosis 0 Spherocytes Sickle Cells Target Cells Tear Drop Cells Ovalocytes Stomatocytes Helmet Cells [place] Bodies [place] Rings Branden Cells Acanthocytes (Spur) Rouleaux Fragmented RBCs Schistocytes PT with INR INR PTT (Actin FS) Sodium 148 H 149 H Potassium 4.3 4.4 Chloride 120 H 120 H Carbon Dioxide 19 L 21 Anion Gap 10 9 BUN 32 H 36 H Creatinine 1.2 1.6 H Creat Clearance w eGFR 44.54 31.96 Random Glucose 123 H 125 H Calcium 9.0 8.3 L Phosphorus 4.0 4.0 Magnesium 1.7 L 1.8 Total Bilirubin 0.3 AST 18 ALT 18 Alkaline Phosphatase 62 Total Protein 3.9 L Albumin 1.4 L 10/03/18 10/03/18 05:30 05:30 WBC 10.9 H RBC 4.46 Hgb 11.9 Hct 37.2 MCV 83.5 MCH 26.7 MCHC 32.0 RDW 14.3 Plt Count 231 MPV 8.7 Absolute Neuts (auto) 9.5 H Neutrophils % 86.9 H Neutrophils % (Manual) 68.1 Band Neutrophils % 8.5 Lymphocytes % 6.8 L Lymphocytes % (Manual) 11.7 D Monocytes % 5.7 Monocytes % (Manual) 2 L D Eosinophils % 0.4 D Eosinophils % (Manual) 0.0 D Basophils % 0.2 Basophils % (Manual) 0.0 Myelocytes % (Man) 9 H D Promyelocytes % (Man) 0 Blast Cells % (Manual) 0 Nucleated RBC % 0 Metamyelocytes 1 D Hypochromia 0 Toxic Granulation 0 Dohle Bodies 0 Platelet Estimate Normal Polychromasia 0 Poikilocytosis 0 Basophilic Stippling 0 Anisocytosis 0 Microcytosis 0 Macrocytosis 0 Spherocytes 0 Sickle Cells 0 Target Cells 0 Tear Drop Cells 0 Ovalocytes 0 Stomatocytes 0 Helmet Cells 0 [place] Bodies 0 [place] Rings 0 Branden Cells 0 Acanthocytes (Spur) 0 Rouleaux 0 Fragmented RBCs 0 Schistocytes 0 PT with INR 12.70 INR 1.08 PTT (Actin FS) 25.7 Sodium Potassium Chloride Carbon Dioxide Anion Gap BUN Creatinine Creat Clearance w eGFR Random Glucose Calcium Phosphorus Magnesium Total Bilirubin AST ALT Alkaline Phosphatase Total Protein Albumin ASSESSMENT/PLAN: Acute Respiratory Failure Cholecystitis Chronic constipation Bipolar d/o Pneumoperitoneum S/P Ex lap with sigmoid colectomy with colostomy New AFib D/C Sedation Wean to extubate BD TX PRN IVF Rate control VTE prophylaxis Pain control Enteral feeds when cleared by surgery ABX per ID Follow cultures Restart Psych meds when able to take PO ICU monitoring Dr Walker Critical care time spent in reviewing chart, evaluating patient and formulating plan - 36 minutes.
--- NOTE | 2018-10-03 16:02 | PN ---
Progress Note, Physician History of Present Illness: s/p Sidra's procedure for OR findings of stercoral perforation with peritonitis extubated this morning in ICU, now on NC O2 sedation off but fentanyl drip continues pt seen and examined in bed, no family at bedside she is awake, knows where she is and recognizes me, but seems slightly confused asked how her pain is, she says she is doing ok she is easily tearful, but seems to understand when explained to about her surgery NG is in place, sumped with piston syringe, little bilious drainage in canister Miguel with very light/clear yellow urine - 300ml overnight from 11p-6a only, 450ml since - Current Medication List Current Medications: Active Medications Albuterol/Ipratropium (Duoneb -) 1 amp NEB RQID [facility] Last Admin: 10/03/18 11:48 Dose: 1 amp Chlorhexidine Gluconate (Hibiclens For Decolonization -) 1 applic TP HS [facility] Last Admin: 10/02/18 21:38 Dose: 1 applic Diltiazem HCl (Cardizem Injection -) 10 mg IVPUSH Q4H PRN PRN Reason: TACHYCARDIA Heparin Sodium (Porcine) (Heparin -) 5,000 unit SQ TID [facility] Last Admin: 10/03/18 05:31 Dose: 5,000 unit Propofol (Diprivan -) 1,000,000 mcg in 100 mls @ 2.01 mls/hr IVPB TITR [facility]; Protocol Last Admin: 10/03/18 05:32 Dose: 10 mcg/kg/min, 4.02 mls/hr Meropenem 1 gm/ Dextrose 100 mls @ 200 mls/hr IVPB Q8H-IV [facility] Last Admin: 10/03/18 10:37 Dose: 200 mls/hr Famotidine/Sodium Chloride (Pepcid 20 Mg Premixed Ivpb -) 20 mg in 50 mls @ 100 mls/hr IVPB BID [facility] Last Admin: 10/03/18 10:37 Dose: 100 mls/hr Fentanyl 500 mcg/ Dextrose 100 mls @ 10 mls/hr IVPB TITR [facility]; Protocol Last Admin: 10/03/18 05:33 Dose: 50 mcg/hr, 10 mls/hr Lactated Ringer's (Lactated Ringers Solution) 1,000 ml in 1,000 mls @ 125 mls/ hr IV ASDIR [facility] Levothyroxine Sodium (Synthroid -) 100 mcg PO DAILY@0700 [facility] Levothyroxine Sodium (Synthroid Injection -) 50 mcg IVPUSH DAILY [facility] Last Admin: 10/03/18 10:37 Dose: 50 mcg [place] Carbonate (Eskalith -) 300 mg PO DAILY [facility] Last Admin: 10/03/18 10:38 Dose: Not Given Metoprolol Tartrate (Lopressor Injection -) 5 mg IVPUSH Q4H PRN PRN Reason: TACHYCARDIA Mupirocin (Bactroban Ointment (For Decolonization) -) 1 applic NS BID [facility] Stop: 10/07/18 21:59 Last Admin: 10/03/18 10:36 Dose: 1 applic - Objective Vital Signs: Vital Signs Temperature 98.1 F 10/03/18 14:00 Pulse Rate 101 H 10/03/18 14:00 Respiratory Rate 16 10/03/18 14:00 Blood Pressure 103/84 10/03/18 14:00 O2 Sat by Pulse Oximetry (%) 97 10/03/18 11:48 HR sinus with PVCs Intake & Output 10/03/18 10/03/18 10/03/18 07:59 15:59 23:59 Intake Total 1150 Output Total 330 450 Balance 820 -450 Weight 165 lb 165 lb Intake: IV 1050 DIPRIVAN - 1,000,000 mcg 105 In 100 ml @ 5 MCG/KG/MIN 2.01 mls/hr IVPB TITR [facility] Rx#:[id number] LACTATED RINGERS SOLUTION 875 1,000 ml In 1,000 ml @ 125 mls/hr IV ASDIR [facility] Rx#:[id number] Sublimaze Injection - 500 70 Mcg In D5w - 90 ml @ 50 MCG/HR 10 mls/hr IVPB TITR [facility] Rx#:[id number] IVPB 100 Output: Gastric Drainage 30 Urine 300 450 Miguel 300 450 Other: Voiding Method Indwelling Catheter Height 5 ft 1 in Body Mass Index (BMI) 31.1 Weight Measurement Method Built in [facility] Constitutional: Yes: Well Nourished, No Distress, Calm Eyes: Yes: Conjunctiva Clear, EOM Intact HENT: Yes: Atraumatic, Normocephalic, Other (NGT in place) Cardiovascular: Yes: Regular Rate and Rhythm (with PVCs), Tachycardia (slight) Respiratory: Yes: On Nasal O2. No: SOB Gastrointestinal: Yes: Soft, Hypoactive Bowel Sounds (absent), Tenderness ( incisional and mild LLQ, RUQ), Other (colostomy pink, slightly edematous, no gas in bag, scant fluid) Genitourinary: Yes: Miguel Present. No: Hematuria Extremities: No: Cool, Cyanosis Integumentary: Yes: Incision (midline dressed). No: Jaundice, Rash Wound/Incision: Yes: Dressing Dry and Intact (with some serosang strikethrough on gauze). No: Dressing Removed (will change tomorrow) Neurological: Yes: Alert, Oriented, Confusion Labs: CBC, BMP 10/03/18 05:30 10/03/18 05:30 INR, PTT INR 1.08 (0.83-1.09) 10/03/18 05:30 CMP Sodium 149 mmol/L (136-145) H 10/03/18 05:30 Potassium 4.4 mmol/L (3.5-5.1) 10/03/18 05:30 Chloride 120 mmol/L (98-107) H 10/03/18 05:30 Carbon Dioxide 21 mmol/L (21-32) 10/03/18 05:30 Anion Gap 9 MMOL/L (8-16) 10/03/18 05:30 BUN 36 mg/dL (7-18) H 10/03/18 05:30 Creatinine 1.6 mg/dL (0.55-1.3) H 10/03/18 05:30 Creat Clearance w eGFR 31.96 (>60) 10/03/18 05:30 Random Glucose 125 mg/dL (74-106) H 10/03/18 05:30 Calcium 8.3 mg/dL (8.5-10.1) L 10/03/18 05:30 Phosphorus 4.0 mg/dL (2.5-4.9) 10/03/18 05:30 Magnesium 1.8 mg/dL (1.8-2.4) 10/03/18 05:30 Total Bilirubin 0.3 mg/dL (0.2-1) 10/03/18 05:30 AST 18 U/L (15-37) 10/03/18 05:30 ALT 18 U/L (13-61) 10/03/18 05:30 Alkaline Phosphatase 62 U/L (45-117) 10/03/18 05:30 Total Protein 3.9 g/dl (6.4-8.2) L 10/03/18 05:30 Albumin 1.4 g/dl (3.4-5.0) L 10/03/18 05:30 hypernatremia and BUN/Cr up - still hypovolemic intravascularly - needs more resuscitation fluids (crystalloid) Problem List - Problems (1) Perforation of sigmoid colon Assessment/Plan: POD1 s/p sigmoidectomy with colostomy (Sidra's procedure) for stercoral perforation of sigmoid with peritonitis in ICU, now extubated on NC O2 f/u cultures and pathology continue antibiotics per ID, Meropenem await bowel/colostomy function continue NPO/NG/IVF - needs further fluid resuscitation, still third-spacing pain meds - fentanyl drip on, will consider changing to prn tomorrow consider adding standing IV tylenol will need PT to see midline incision with several open wounds - will change packing tomorrow colostomy pink, edematous, no function yet may need convex appliance Code(s): K63.1 - PERFORATION OF INTESTINE (NONTRAUMATIC) (2) Stercoral ulcer of large intestine Code(s): K63.3 - ULCER OF INTESTINE (3) Stercolith Code(s): K56.41 - FECAL IMPACTION (4) Constipation Code(s): K59.00 - CONSTIPATION, UNSPECIFIED Qualifiers: Constipation type: chronic idiopathic constipation Qualified Code(s): K59.04 - Chronic idiopathic constipation (5) Paroxysmal atrial fibrillation Assessment/Plan: echo results noted - mild diastolic dysfunction but normal EF cardiology following heparin drip - on hold perioperatively - would not resume quite yet keep lytes normal pain control IV lopressor/cardizem prn for heart rate control until able to resume po Code(s): I48.0 - PAROXYSMAL ATRIAL FIBRILLATION (6) Bipolar disorder Assessment/Plan: hold lithium for now Code(s): F31.9 - BIPOLAR DISORDER, UNSPECIFIED Qualifiers: Active/Remission status: in remission of unspecified degree Qualified Code( s): F31.70 - Bipolar disorder, currently in remission, most recent episode unspecified (7) Hypertension Assessment/Plan: monitor, IV meds prn Code(s): I10 - ESSENTIAL (PRIMARY) HYPERTENSION Qualifiers: Hypertension type: essential hypertension Qualified Code(s): I10 - Essential (primary) hypertension (8) Hyperlipidemia Code(s): E78.5 - HYPERLIPIDEMIA, UNSPECIFIED Qualifiers: Hyperlipidemia type: unspecified Qualified Code(s): E78.5 - Hyperlipidemia , unspecified (9) Hypothyroidism Assessment/Plan: changed synthroid to IV Code(s): E03.9 - HYPOTHYROIDISM, UNSPECIFIED Qualifiers: Hypothyroidism type: unspecified Qualified Code(s): E03.9 - Hypothyroidism , unspecified (10) Hiatal hernia without gangrene or obstruction Code(s): K44.9 - DIAPHRAGMATIC HERNIA WITHOUT OBSTRUCTION OR GANGRENE Assessment/Plan This patient is critically ill. Time spent reviewing chart, examining patient, talking with providers and/or family and documentation is 40 minutes.
[2018-10-03] MEDS: CHLORHEXIDINE GLUCONATE 4% CLEANSER FOR DECOLONIZATION TP SCH (22:58)
[2018-10-04] MEDS: LACTATED RINGERS SOLUTION 1,000 ML/1,000 ML INFUS.BAG IV SCH (01:31)
[2018-10-04] MEDS: MEROPENEM 1 GM in DEXTROSE 5%-WATER 100 ML IVPB SCH ×3 (02:22→17:32)
[2018-10-04] MEDS: FENTANYL INJECTION 500 MCG in DEXTROSE 5%-WATER - 90 ML IVPB SCH (05:32)
[2018-10-04 05:45] LABS: BASO % 0.2 % (0-2.0); EOS % 0.1 % (0-4.5); HEMATOCRIT 34.5 % (32.4-45.2); HEMOGLOBIN 10.8 GM/dL (10.7-15.3); LYMPH % 4.6 % (8-40); MCH 26.4 pg (25.7-33.7); MCHC 31.4 g/dl (32.0-36.0); MEAN CELL VOLUME 84.1 fl (80-96); MEAN PLT VOLUME 8.5 fl (7.5-11.1); MONO % 7.5 % (3.8-10.2); NEUT % 87.6 % (42.8-82.8); PLATELET COUNT 214 K/MM3 (134-434); RDW 14.2 % (11.6-15.6); WHITE BLOOD COUNT 14.8 K/mm3 (4.0-10.0)
[2018-10-04 06:30] LABS: ALBUMIN 1.4 g/dl (3.4-5.0); ALK PHOS 72 U/L (45-117); ANION GAP 5 MMOL/L (8-16); BILIRUBIN,TOTAL 0.3 mg/dL (0.2-1); BLOOD UREA NITROGEN 41 mg/dL (7-18); CALCIUM 8.5 mg/dL (8.5-10.1); CHLORIDE 123 mmol/L (98-107); CO2 24 mmol/L (21-32); CREATININE 1.7 mg/dL (0.55-1.3); GLUCOSE,RANDOM 118 mg/dL (74-106); PHOSPHOROUS 3.7 mg/dL (2.5-4.9); SGOT/AST 22 U/L (15-37); SGPT/ALT 17 U/L (13-61); SODIUM 152 mmol/L (136-145)
[2018-10-04 06:49] LABS: PLATELET ESTIMATE NORMAL
--- NOTE | 2018-10-04 07:11 | PN ---
Physical Exam: SUBJECTIVE: Patient seen and examined at bedside. No acute events overnight. Pt now passing flatus. No formed stool seen yet. Pain controlled. OBJECTIVE: Vital Signs Period Temp Pulse Resp BP Sys/Choi Pulse Ox Last 24 Hr 97.6 F-99.2 F 82-112 12-20 101-150/69-96 95-99 GENERAL: Awake. Alert and oriented to person and place. Responds to commands. HEENT: AT/NC. EOMI. HALI. Dry mucus membranes. NECK: Supple. LUNGS: CTA B/L. No wheezes noted. Symmetric chest rise. HEART: RRR. Normal S1, S2. No murmurs noted. ABDOMEN: Soft, NT/ND. Ostomy bag in place, draining pink fluid. Surgical abdominal dressing clean, dry, and intact. MUSCULOSKELETAL: No peripheral edema noted. EXTREMITIES: 2+ dorsalis pedis pulses b/l. NEUROLOGICAL: Respond to commands. CBCD WBC 14.8 K/mm3 (4.0-10.0) H 10/04/18 05:30 RBC 4.10 M/mm3 (3.60-5.2) 10/04/18 05:30 Hgb 10.8 GM/dL (10.7-15.3) 10/04/18 05:30 Hct 34.5 % (32.4-45.2) 10/04/18 05:30 MCV 84.1 fl (80-96) 10/04/18 05:30 MCHC 31.4 g/dl (32.0-36.0) L 10/04/18 05:30 RDW 14.2 % (11.6-15.6) 10/04/18 05:30 Plt Count 214 K/MM3 (134-434) 10/04/18 05:30 MPV 8.5 fl (7.5-11.1) 10/04/18 05:30 CMP Sodium 152 mmol/L (136-145) H 10/04/18 05:30 Potassium 4.0 mmol/L (3.5-5.1) 10/04/18 05:30 Chloride 123 mmol/L (98-107) H 10/04/18 05:30 Carbon Dioxide 24 mmol/L (21-32) 10/04/18 05:30 Anion Gap 5 MMOL/L (8-16) L 10/04/18 05:30 BUN 41 mg/dL (7-18) H 10/04/18 05:30 Creatinine 1.7 mg/dL (0.55-1.3) H 10/04/18 05:30 Creat Clearance w eGFR 29.80 (>60) 10/04/18 05:30 Calcium 8.5 mg/dL (8.5-10.1) 10/04/18 05:30 Total Bilirubin 0.3 mg/dL (0.2-1) 10/04/18 05:30 AST 22 U/L (15-37) 10/04/18 05:30 ALT 17 U/L (13-61) 10/04/18 05:30 Alkaline Phosphatase 72 U/L (45-117) 10/04/18 05:30 Total Protein 4.0 g/dl (6.4-8.2) L 10/04/18 05:30 Albumin 1.4 g/dl (3.4-5.0) L 10/04/18 05:30 Active Medications Albuterol/Ipratropium (Duoneb -) 1 amp NEB RQID [facility] Last Admin: 10/03/18 20:48 Dose: 1 amp Chlorhexidine Gluconate (Hibiclens For Decolonization -) 1 applic TP HS [facility] Last Admin: 10/03/18 22:58 Dose: 1 applic Diltiazem HCl (Cardizem Injection -) 10 mg IVPUSH Q4H PRN PRN Reason: TACHYCARDIA Heparin Sodium (Porcine) (Heparin -) 5,000 unit SQ TID [facility] Last Admin: 10/03/18 05:31 Dose: 5,000 unit Meropenem 1 gm/ Dextrose 100 mls @ 200 mls/hr IVPB Q8H-IV [facility] Last Admin: 10/04/18 02:22 Dose: 200 mls/hr Famotidine/Sodium Chloride (Pepcid 20 Mg Premixed Ivpb -) 20 mg in 50 mls @ 100 mls/hr IVPB BID [facility] Last Admin: 10/03/18 22:58 Dose: 100 mls/hr Dextrose/Sodium Chloride (D5-1/2ns -) 1,000 mls @ 125 mls/hr IV ASDIR [facility] Levothyroxine Sodium (Synthroid -) 100 mcg PO DAILY@0700 [facility] Levothyroxine Sodium (Synthroid Injection -) 50 mcg IVPUSH DAILY [facility] Last Admin: 10/03/18 10:37 Dose: 50 mcg [place] Carbonate (Eskalith -) 300 mg PO DAILY [facility] Last Admin: 10/03/18 10:38 Dose: Not Given Metoprolol Tartrate (Lopressor Injection -) 5 mg IVPUSH Q4H PRN PRN Reason: TACHYCARDIA Mupirocin (Bactroban Ointment (For Decolonization) -) 1 applic NS BID [facility] Stop: 10/07/18 21:59 Last Admin: 10/03/18 22:57 Dose: 1 applic ASSESSMENT/PLAN: 67F w/ pmhx of cholecystitis, chronic constipation, bipolar d/o, pneumoperitoneum s/p ex lap, sigmoid colectomy with colostomy, POD #2 (10/02/18) admitted to the ICU for post-op care . Neurology -Pain controlled. -Morphine 2 Q6H, IV Tylenol for pain Pulmonary -Extubated. -Duonebs QID -repeat CXR pending Cardiology #New onset A. fib -Stable, pt currently in NSR. -Metoprolol Tartrate 5 mg IVP PRN, Cardizem 10 mg IVP Q4H PRN -hold heparin drip until cleared by surg -Cardio following GI #Sigmoid diverticulitis s/p (Sidra's procedure) sigmoid colectomy w/ colostomy, POD #2. -Per surg, pt had multiple hard stools found in colon with purulent fluid found in pelvis; multiple bowel perforations at site of hard stools. Once pt has + bowel/colostomy fxn, may consider DC NG tube and and start PO meds. Reglan x1 dose -cont IV Abx -IVf -Pain control -NPO -Head of bed elevated, morales/NG tube, monitor vitals -PT, OOB Renal #Hypernatremia, likely 2/2 intravascular depletion/third spacing -cont LR @ 125 -Per renal, recommend BMP BID, cont IVf -f/u BMP at 6pm ID #Sepsis 2/2 sigmoid diverticulitis with localized perforation -Afebrile. -Per ID, cont Meropenem 1gm -BCx neg x5 days -Peritoneal fluid gram stain neg; Cx pending -ID following Endocrinology #Hypothyroidism -Synthroid 50 mcg IVP QD -Can resume PO once passing BM and NG tube dc'd Psych #Bipolar disorder -Hold home [place] for now as pt is unable to take PO meds at this time. Prophylaxis GI- Pepcid DVT- SCDs, hold heparin drip for now until clear by surg FEN -LR @ 125 -recheck ghassan in AM, replete PRN -NPO lines -NG tube -morales -colostomy dispo -full code -transfer to med/surg Visit type - Emergency Visit Emergency Visit: Yes ED Registration Date: 09/28/18 Care time: The patient presented to the Emergency Department on the above date and was hospitalized for further evaluation of their emergent condition. - New Patient This patient is new to me today: No - Critical Care Critical Care patient: Yes Total Critical Care Time (in minutes): 36 Critical Care Statement: The care of this patient involved high complexity decision making to prevent further life threatening deterioration of the patient 's condition and/or to evaluate & treat vital organ system(s) failure or risk of failure.
[2018-10-04] MEDS ORDERED: MORPHINE SULFATE 2 MG/ML VIAL IVPUSH PRN (07:12)
[2018-10-04] MEDS ORDERED: DEXTROSE 5%-0.45% SALINE 1,000 ML IV SCH (07:15)
[2018-10-04] MEDS ORDERED: LACTATED RINGERS SOLUTION 1,000 ML/1,000 ML INFUS.BAG IV SCH (07:45)
[2018-10-04] MEDS: ALBUTEROL SO4 2.5/IPRATROPIUM 0.5 INH SOL 3 ML VIAL.NEB. NEB SCH ×4 (07:55→20:50)
[2018-10-04] MEDS: MUPIROCIN 2% TOPICAL OINTMENT FOR DECOLONIZATION NS SCH ×2 (09:32→21:15)
[2018-10-04] MEDS: LEVOTHYROXINE SODIUM 100 MCG VIAL IVPUSH SCH (09:39)
[2018-10-04] MEDS: FAMOTIDINE 20 MG/50 ML IVPB 20 MG/50 ML MG IVPB SCH ×2 (09:48→21:13)
[2018-10-04] MEDS: LITHIUM CARBONATE 300 MG CAPSULE (FP) PO SCH (09:48)
[2018-10-04] MEDS ORDERED: LACTATED RINGERS SOLUTION 1,000 ML/1,000 ML INFUS.BAG IV STA (11:01)
[2018-10-04] MEDS ORDERED: METOCLOPRAMIDE HCL INJECTION 10 MG/2 ML VIAL IVPUSH ONE (11:02)
[2018-10-04] MEDS ORDERED: METOPROLOL TARTRATE 5 MG/5 ML VIAL IVPUSH STA (11:03)
--- NOTE | 2018-10-04 11:07 | PN ---
Progress Note, Physician History of Present Illness: s/p Sidra's procedure for OR findings of stercoral perforation with peritonitis extubated and on NC O2 on prn pain meds pt seen and examined in bed, no family at bedside she is awake and alert, asking for ice chips, noted to be shivering asked how her pain is, she says she is "doing ok" NG is in place, sumped with piston syringe, ~300ml drainage in canister Miguel with very light/clear yellow urine, 700ml last shift till 6am - Current Medication List Current Medications: Active Medications Acetaminophen (Ofirmev Injection -) 1,000 mg IVPB Q6H PRN PRN Reason: PAIN LEVEL 1-5 Albuterol/Ipratropium (Duoneb -) 1 amp NEB RQID [facility] Last Admin: 10/04/18 07:55 Dose: 1 amp Chlorhexidine Gluconate (Hibiclens For Decolonization -) 1 applic TP HS [facility] Last Admin: 10/03/18 22:58 Dose: 1 applic Diltiazem HCl (Cardizem Injection -) 10 mg IVPUSH Q4H PRN PRN Reason: TACHYCARDIA Meropenem 1 gm/ Dextrose 100 mls @ 200 mls/hr IVPB Q8H-IV [facility] Last Admin: 10/04/18 09:33 Dose: 200 mls/hr Famotidine/Sodium Chloride (Pepcid 20 Mg Premixed Ivpb -) 20 mg in 50 mls @ 100 mls/hr IVPB BID [facility] Last Admin: 10/04/18 09:48 Dose: 100 mls/hr Lactated Ringer's (Lactated Ringers Solution) 1,000 ml in 1,000 mls @ 125 mls/ hr IV ASDIR [facility] Last Admin: 10/04/18 08:30 Dose: 125 mls/hr Levothyroxine Sodium (Synthroid -) 100 mcg PO DAILY@0700 [facility] Levothyroxine Sodium (Synthroid Injection -) 50 mcg IVPUSH DAILY [facility] Last Admin: 10/04/18 09:39 Dose: 50 mcg [place] Carbonate (Eskalith -) 300 mg PO DAILY [facility] Last Admin: 10/04/18 09:48 Dose: Not Given Metoprolol Tartrate (Lopressor Injection -) 5 mg IVPUSH Q4H PRN PRN Reason: TACHYCARDIA Morphine Sulfate (Morphine Sulfate) 2 mg IVPUSH Q6H PRN PRN Reason: PAIN LEVEL 6-10 Mupirocin (Bactroban Ointment (For Decolonization) -) 1 applic NS BID [facility] Stop: 10/07/18 21:59 Last Admin: 10/04/18 09:32 Dose: 1 applic - Objective Vital Signs: Vital Signs Temperature 97.5 F L 10/04/18 10:12 Pulse Rate 72 10/04/18 10:12 Respiratory Rate 12 10/04/18 10:12 Blood Pressure 124/87 10/04/18 10:12 O2 Sat by Pulse Oximetry (%) 95 10/04/18 09:00 T 98.9 just now HR with some PVCs sat on NC O2 Constitutional: Yes: Well Nourished, No Distress, Calm Eyes: Yes: Conjunctiva Clear, EOM Intact HENT: Yes: Atraumatic, Normocephalic, Other (NG in place with ghislaine output) Cardiovascular: Yes: Regular Rate and Rhythm (with PVCs) Respiratory: Yes: On Nasal O2. No: SOB Gastrointestinal: Yes: Soft, Hypoactive Bowel Sounds (present in all quadrants) , Tenderness (incisional), Other (colostomy pink, mild edema, + gas output, no stool yet). No: Distention, Tenderness, Rebound Genitourinary: Yes: Miguel Present. No: Hematuria Extremities: No: Cool, Cyanosis Edema: Yes (mild generalized) Integumentary: Yes: Incision (midline with dressing). No: Jaundice, Rash Wound/Incision: Yes: Cedrick Intact (between wounds), Dressing Dry and Intact ( with serosang strikethrough/dried), Dressing Removed (and dressings changed - packing exchanged for 1/2" iodoform in 4 midline wounds, cedrick intact between open areas, wounds clean, not yet granulating), Unapproximated (between cedrick) Neurological: Yes: Alert, Oriented Labs: CBC, BMP 10/04/18 05:30 10/04/18 05:30 Na, Cl higher, BUN/Cr up still intravascularly depleted, third-spacing Problem List - Problems (1) Perforation of sigmoid colon Assessment/Plan: POD2 s/p sigmoidectomy with colostomy (Sidra's procedure) for stercoral perforation of sigmoid with peritonitis in ICU, extubated on NC O2 f/u cultures and pathology continue antibiotics per ID, Meropenem await bowel/colostomy function - producing gas but no stool yet will give reglan one dose continue NPO/NG/IVF - needs further fluid resuscitation, still third-spacing bolus ordered, continue IVF, check chem twice daily as per renal pain meds - prn - would use NONNARCOTICS FIRST LINE consider changing IV tylenol to STANDING will need PT to see midline incision with several open wounds - packing changed, wounds clean may need convex appliance for ostomy arrived after exam - spoke with him, answered questions Code(s): K63.1 - PERFORATION OF INTESTINE (NONTRAUMATIC) (2) Stercoral ulcer of large intestine Code(s): K63.3 - ULCER OF INTESTINE (3) Stercolith Code(s): K56.41 - FECAL IMPACTION (4) Constipation Code(s): K59.00 - CONSTIPATION, UNSPECIFIED Qualifiers: Constipation type: chronic idiopathic constipation Qualified Code(s): K59.04 - Chronic idiopathic constipation (5) Paroxysmal atrial fibrillation Assessment/Plan: echo results noted - mild diastolic dysfunction but normal EF cardiology following heparin drip - on hold perioperatively - would not resume quite yet keep lytes normal pain control IV lopressor/cardizem prn for heart rate control until able to resume po Code(s): I48.0 - PAROXYSMAL ATRIAL FIBRILLATION (6) Bipolar disorder Assessment/Plan: if lithium available in liquid form, could give via NGT with 30 minutes clamping , if not, will hold till NG out Code(s): F31.9 - BIPOLAR DISORDER, UNSPECIFIED Qualifiers: Active/Remission status: in remission of unspecified degree Qualified Code( s): F31.70 - Bipolar disorder, currently in remission, most recent episode unspecified (7) Hypertension Assessment/Plan: monitor, IV meds prn Code(s): I10 - ESSENTIAL (PRIMARY) HYPERTENSION Qualifiers: Hypertension type: essential hypertension Qualified Code(s): I10 - Essential (primary) hypertension (8) Hyperlipidemia Code(s): E78.5 - HYPERLIPIDEMIA, UNSPECIFIED Qualifiers: Hyperlipidemia type: unspecified Qualified Code(s): E78.5 - Hyperlipidemia , unspecified (9) Hypothyroidism Assessment/Plan: changed synthroid to IV Code(s): E03.9 - HYPOTHYROIDISM, UNSPECIFIED Qualifiers: Hypothyroidism type: unspecified Qualified Code(s): E03.9 - Hypothyroidism , unspecified (10) Hiatal hernia without gangrene or obstruction Code(s): K44.9 - DIAPHRAGMATIC HERNIA WITHOUT OBSTRUCTION OR GANGRENE Assessment/Plan This patient is critically ill. Time spent reviewing chart, examining patient, talking with providers and/or family and documentation is 35 minutes. Discussed with ICU team.
--- NOTE | 2018-10-04 11:51 | PN ---
Teaching Attending Note Name of Resident: Valeria Fox ATTENDING PHYSICIAN STATEMENT I saw and evaluated the patient. I reviewed the resident's note and discussed the case with the resident. I agree with the resident's findings and plan as documented. SUBJECTIVE: Patient seen and examined in the ICU. Remains extubated. Awake and alert. Tearful. Denies CP or SOB. No pressors. Intake & Output 10/01/18 10/02/18 10/03/18 10/04/18 23:59 23:59 23:59 23:59 Intake Total 4170 6522 3590 1180 Output Total 500 1900 1110 770 Balance 3670 4622 2480 410 Weight 165 lb 166 lb 8 oz Last Vital Signs Temp Pulse Resp BP Pulse Ox 97.5 F L 72 12 124/87 95 10/04/18 10:12 10/04/18 10:12 10/04/18 10:12 10/04/18 10:12 10/04/18 09:00 Active Medications Acetaminophen (Ofirmev Injection -) 1,000 mg IVPB Q6H PRN PRN Reason: PAIN LEVEL 1-5 Albuterol/Ipratropium (Duoneb -) 1 amp NEB RQID [facility] Last Admin: 10/04/18 11:22 Dose: 1 amp Chlorhexidine Gluconate (Hibiclens For Decolonization -) 1 applic TP HS [facility] Last Admin: 10/03/18 22:58 Dose: 1 applic Diltiazem HCl (Cardizem Injection -) 10 mg IVPUSH Q4H PRN PRN Reason: TACHYCARDIA Meropenem 1 gm/ Dextrose 100 mls @ 200 mls/hr IVPB Q8H-IV [facility] Last Admin: 10/04/18 09:33 Dose: 200 mls/hr Famotidine/Sodium Chloride (Pepcid 20 Mg Premixed Ivpb -) 20 mg in 50 mls @ 100 mls/hr IVPB BID [facility] Last Admin: 10/04/18 09:48 Dose: 100 mls/hr Lactated Ringer's (Lactated Ringers Solution) 1,000 ml in 1,000 mls @ 125 mls/ hr IV ASDIR [facility] Last Admin: 10/04/18 08:30 Dose: 125 mls/hr Lactated Ringer's (Lactated Ringers Solution) 1,000 ml in 1,000 mls @ 1,000 mls /hr IV ONCE [facility] Stop: 10/04/18 12:00 Levothyroxine Sodium (Synthroid -) 100 mcg PO DAILY@0700 [facility] Levothyroxine Sodium (Synthroid Injection -) 50 mcg IVPUSH DAILY [facility] Last Admin: 10/04/18 09:39 Dose: 50 mcg [place] Carbonate (Eskalith -) 300 mg PO DAILY [facility] Last Admin: 10/04/18 09:48 Dose: Not Given Metoprolol Tartrate (Lopressor Injection -) 5 mg IVPUSH Q4H PRN PRN Reason: TACHYCARDIA Morphine Sulfate (Morphine Sulfate) 2 mg IVPUSH Q6H PRN PRN Reason: PAIN LEVEL 6-10 Mupirocin (Bactroban Ointment (For Decolonization) -) 1 applic NS BID [facility] Stop: 10/07/18 21:59 Last Admin: 10/04/18 09:32 Dose: 1 applic GENERAL: Currently extubated, responsive. HEENT: AT/NC. Dry mucus membranes. NECK: Supple. LUNGS: few rhonchi. No wheezes HEART: RRR. Normal S1, S2. No murmurs noted. ABDOMEN: Soft, NT/ND. Ostomy bag in place. Surgical abdominal dressing c/d/i. MUSCULOSKELETAL: No peripheral edema noted. EXTREMITIES: 2+ dorsalis pedis pulses b/l. NEUROLOGICAL: Non-focal. Laboratory Results - last 24 hr 10/03/18 10/04/18 10/04/18 05:30 05:30 05:30 WBC 14.8 H RBC 4.10 Hgb 10.8 Hct 34.5 MCV 84.1 MCH 26.4 MCHC 31.4 L RDW 14.2 Plt Count 214 MPV 8.5 Absolute Neuts (auto) 13.0 H Neutrophils % 87.6 H Neutrophils % (Manual) 68.1 79.1 Band Neutrophils % 8.5 0.0 Lymphocytes % 4.6 L D Lymphocytes % (Manual) 11.7 D 10.0 Monocytes % 7.5 Monocytes % (Manual) 2 L D 3 L Eosinophils % 0.1 Eosinophils % (Manual) 0.0 D 0.0 Basophils % 0.2 Basophils % (Manual) 0.0 0.9 D Myelocytes % (Man) 9 H D 4 H D Promyelocytes % (Man) 0 0 Blast Cells % (Manual) 0 1 H D Nucleated RBC % 0 Metamyelocytes 1 D 1 Hypochromia 0 Toxic Granulation 0 Dohle Bodies 0 Platelet Estimate Normal Normal Polychromasia 0 Poikilocytosis 0 Basophilic Stippling 0 Anisocytosis 0 Microcytosis 0 Macrocytosis 0 Spherocytes 0 Sickle Cells 0 Target Cells 0 Tear Drop Cells 0 Ovalocytes 0 Stomatocytes 0 Helmet Cells 0 [place] Bodies 0 Anton Rings 0 [place] Cells 0 Acanthocytes (Spur) 0 Rouleaux 0 Fragmented RBCs 0 Schistocytes 0 Sodium 152 H Potassium 4.0 Chloride 123 H Carbon Dioxide 24 Anion Gap 5 L BUN 41 H Creatinine 1.7 H Creat Clearance w eGFR 29.80 Random Glucose 118 H Calcium 8.5 Phosphorus 3.7 Magnesium 2.0 Total Bilirubin 0.3 AST 22 ALT 17 Alkaline Phosphatase 72 Total Protein 4.0 L Albumin 1.4 L ASSESSMENT/PLAN: Acute Respiratory Failure Cholecystitis Chronic constipation Bipolar d/o Pneumoperitoneum S/P Ex lap with sigmoid colectomy with colostomy New AFib O2 as needed BD TX PRN IVF Rate control VTE prophylaxis Pain control Enteral feeds when cleared by surgery ABX per ID Follow cultures Restart Psych meds when able to take PO Floor Dr Walker
--- NOTE | 2018-10-04 11:53 | PN ---
Progress Note (short form) - Note Progress Note: Renal follow up for MONIKA Pt seen and examined in the ICU awake and alert no acute complaints denies any sob Vital Signs Temperature 97.5 F L 10/04/18 10:12 Pulse Rate 72 10/04/18 10:12 Respiratory Rate 12 10/04/18 10:12 Blood Pressure 124/87 10/04/18 10:12 O2 Sat by Pulse Oximetry (%) 95 10/04/18 09:00 Intake & Output 10/01/18 10/02/18 10/03/18 10/04/18 23:59 23:59 23:59 23:59 Intake Total 4170 6522 3590 1180 Output Total 500 1900 1110 770 Balance 3670 4622 2480 410 Weight 74.843 kg 75.523 kg NAD NGT in place neck supple tachycardic dec Bs, no rales no LE edema CBC, BMP 10/04/18 05:30 10/04/18 05:30 Current Medications Acetaminophen (Ofirmev Injection -) 1,000 mg IVPB Q6H PRN PRN Reason: PAIN LEVEL 1-5 Albuterol/Ipratropium (Duoneb -) 1 amp NEB RQID [facility] Last Admin: 10/04/18 11:22 Dose: 1 amp Chlorhexidine Gluconate (Hibiclens For Decolonization -) 1 applic TP HS [facility] Last Admin: 10/03/18 22:58 Dose: 1 applic Diltiazem HCl (Cardizem Injection -) 10 mg IVPUSH Q4H PRN PRN Reason: TACHYCARDIA Meropenem 1 gm/ Dextrose 100 mls @ 200 mls/hr IVPB Q8H-IV [facility] Last Admin: 10/04/18 09:33 Dose: 200 mls/hr Famotidine/Sodium Chloride (Pepcid 20 Mg Premixed Ivpb -) 20 mg in 50 mls @ 100 mls/hr IVPB BID [facility] Last Admin: 10/04/18 09:48 Dose: 100 mls/hr Lactated Ringer's (Lactated Ringers Solution) 1,000 ml in 1,000 mls @ 125 mls/ hr IV ASDIR [facility] Last Admin: 10/04/18 08:30 Dose: 125 mls/hr Lactated Ringer's (Lactated Ringers Solution) 1,000 ml in 1,000 mls @ 1,000 mls /hr IV ONCE [facility] Stop: 10/04/18 12:00 Levothyroxine Sodium (Synthroid -) 100 mcg PO DAILY@0700 [facility] Levothyroxine Sodium (Synthroid Injection -) 50 mcg IVPUSH DAILY [facility] Last Admin: 10/04/18 09:39 Dose: 50 mcg [place] Carbonate (Eskalith -) 300 mg PO DAILY [facility] Last Admin: 10/04/18 09:48 Dose: Not Given Metoprolol Tartrate (Lopressor Injection -) 5 mg IVPUSH Q4H PRN PRN Reason: TACHYCARDIA Morphine Sulfate (Morphine Sulfate) 2 mg IVPUSH Q6H PRN PRN Reason: PAIN LEVEL 6-10 Mupirocin (Bactroban Ointment (For Decolonization) -) 1 applic NS BID [facility] Stop: 10/07/18 21:59 Last Admin: 10/04/18 09:32 Dose: 1 applic 67 year old woman with hx of bipolar disorder, cholecystitis who presented with constipation and lower abd pain and found to have acute diverticulosis and new Afib with subsequent development of ileus with MONIKA. #MONIKA likely due to renal hypoprofuion/volume shifts in setting of abdominal infection/sepsis (bland urine sediment, prior abd imaging showed no obstruction in urine flow) #Diverticulitis/Ileus s/p surgical intervention #New Afib #Hypernatremia (water deficit ~2.8L) #hypoalbuminemia Renal function slightly worse today but likely up trend from intial injury clinically stable, and pt is non-oliguric MAP is > 65 continue isotonic fluids Trend BMP Q12h no acute indication for BALLISTICS TESTER continue ICU monitoring Thank you Sulaiman Zarate DO
--- NOTE | 2018-10-04 12:06 | PN ---
Physical Exam: SUBJECTIVE: Patient seen and examined at bedside. patient was tachycardic overnight with max HR being 169. patient is passing gas, however seemed confused this morning. she states her pain is better however she was tearful. ROS limited, however, patient is extuabted on a fentanyl drip. OBJECTIVE: Vital Signs Period Temp Pulse Resp BP Sys/Choi Pulse Ox Last 24 Hr 97.5 F-98.2 F 72-112 12-20 103-150/81-96 95-95 GENERAL: The patient is awake, alert, EYES: no scleral icterus ENT: NGT in place; dry mucous membranes NECK: no JVD, no lymphadenopathy LUNGS: decreased breath sounds at the bases HEART: tachycardic, S1, S2 without murmur, rub or gallop. ABDOMEN: slight distention; hypoactive BS, no wincing upon palpationl ostomy bag in place EXTREMITIES: 2+ pulses, warm, well-perfused, no edema. SKIN: Warm, dry, normal turgor, no rashes or lesions noted Laboratory Results - last 24 hr 10/03/18 10/04/18 10/04/18 05:30 05:30 05:30 WBC 14.8 H RBC 4.10 Hgb 10.8 Hct 34.5 MCV 84.1 MCH 26.4 MCHC 31.4 L RDW 14.2 Plt Count 214 MPV 8.5 Absolute Neuts (auto) 13.0 H Neutrophils % 87.6 H Neutrophils % (Manual) 68.1 79.1 Band Neutrophils % 8.5 0.0 Lymphocytes % 4.6 L D Lymphocytes % (Manual) 11.7 D 10.0 Monocytes % 7.5 Monocytes % (Manual) 2 L D 3 L Eosinophils % 0.1 Eosinophils % (Manual) 0.0 D 0.0 Basophils % 0.2 Basophils % (Manual) 0.0 0.9 D Myelocytes % (Man) 9 H D 4 H D Promyelocytes % (Man) 0 0 Blast Cells % (Manual) 0 1 H D Nucleated RBC % 0 Metamyelocytes 1 D 1 Hypochromia 0 Toxic Granulation 0 Dohle Bodies 0 Platelet Estimate Normal Normal Polychromasia 0 Poikilocytosis 0 Basophilic Stippling 0 Anisocytosis 0 Microcytosis 0 Macrocytosis 0 Spherocytes 0 Sickle Cells 0 Target Cells 0 Tear Drop Cells 0 Ovalocytes 0 Stomatocytes 0 Helmet Cells 0 [place] Bodies 0 [place] Rings 0 Branden Cells 0 Acanthocytes (Spur) 0 Rouleaux 0 Fragmented RBCs 0 Schistocytes 0 Sodium 152 H Potassium 4.0 Chloride 123 H Carbon Dioxide 24 Anion Gap 5 L BUN 41 H Creatinine 1.7 H Creat Clearance w eGFR 29.80 Random Glucose 118 H Calcium 8.5 Phosphorus 3.7 Magnesium 2.0 Total Bilirubin 0.3 AST 22 ALT 17 Alkaline Phosphatase 72 Total Protein 4.0 L Albumin 1.4 L Active Medications Generic Name Dose Route Start Last Admin Trade Name Freq PRN Reason Stop Dose Admin Acetaminophen 1,000 mg 10/04/18 07:11 Ofirmev Injection - IVPB Q6H PRN PAIN LEVEL 1-5 Albuterol/Ipratropium 1 amp 10/02/18 20:00 10/04/18 11:22 Duoneb - NEB 1 amp RQID THOMAS Administration Chlorhexidine Gluconate 1 applic 10/02/18 22:00 10/03/18 22:58 Hibiclens For Decolonization - TP 1 applic HS THOMAS Administration Diltiazem HCl 10 mg 10/02/18 20:15 Cardizem Injection - IVPUSH Q4H PRN TACHYCARDIA Meropenem 1 gm/ Dextrose 100 mls @ 200 mls/hr 10/03/18 02:00 10/04/18 09:33 IVPB 200 mls/hr Q8H-IV THOMAS Administration Famotidine/Sodium Chloride 20 mg in 50 mls @ 100 mls/hr 10/02/18 22:00 09:48 Pepcid 20 Mg Premixed Ivpb - IVPB 100 mls/hr BID THOMAS Administration Lactated Ringer's 1,000 ml in 1,000 mls @ 125 mls/hr 10/04/18 07:45 10/04/18 08:30 Lactated Ringers Solution IV 125 mls/hr ASDIR THOMAS Administration Levothyroxine Sodium 100 mcg 10/03/18 07:00 Synthroid - PO DAILY@0700 THOMAS Levothyroxine Sodium 50 mcg 10/03/18 10:00 10/04/18 09:39 Synthroid Injection - IVPUSH 50 mcg DAILY THOMAS Administration [place] Carbonate 300 mg 10/03/18 10:00 10/04/18 09:48 Eskalith - PO Not Given DAILY THOMAS Metoprolol Tartrate 5 mg 10/02/18 20:15 Lopressor Injection - IVPUSH Q4H PRN TACHYCARDIA Morphine Sulfate 2 mg 10/04/18 07:12 Morphine Sulfate IVPUSH Q6H PRN PAIN LEVEL 6-10 Mupirocin 1 applic 10/02/18 22:00 10/04/18 09:32 Bactroban Ointment (For Decolonization) - NS 10/07/18 21:59 1 applic BID [facility] Administration ASSESSMENT/PLAN: 67 y/o female with PMH of cholecystitis and bipolar disorder presented to the ED with abdominal pain and constipation since found to have a 5x4.3x3.4 oval shaped structure with air possible representing an inflamed diverticulum vs. a contained perforation #POD #2 ex-lap and small bowel resection -patient underwent ex-lap with small bowel resection and ostomy creation yesterday -patient extubated still on fentanyl drip -peritoneal cx sent and negative thus far -meropenem day 3; ID on board -f/u surgery recs -monitor hemodynamics -LR@ 150mls/hr -monitor WBC and for signs of infection -monitor ostomy output -currently in ICU -morphine 2q6 for pain #New onset Afib -patient has been in sinus overnight however with rapid HR in the 150's overnight -metoprolol tartrate 50 BID with lopressor 5mg PRN -on Heparin drip for AC -cardio on board #Bipolar Disorder -c/w with lithium #Hypothyroidism -c/w synthroid #MONIKA -likely 2/2 sepsis and injury -nephro on board -isotonic fluids -BMP q12 F/E/N LR @125mls/hr monitor electrolytes; BMP 12qhrs NPO DVT PPX: Heparin drip Problem List - Problems (1) Abdominal pain Code(s): R10.9 - UNSPECIFIED ABDOMINAL PAIN Qualifiers: Abdominal location: unspecified location Qualified Code(s): R10.9 - Unspecified abdominal pain (2) Abnormal CT scan, sigmoid colon Code(s): R93.3 - ABNORMAL FINDINGS ON DX IMAGING OF PRT DIGESTIVE TRACT (3) Bipolar disorder Code(s): F31.9 - BIPOLAR DISORDER, UNSPECIFIED Qualifiers: Active/Remission status: in remission of unspecified degree Qualified Code( s): F31.70 - Bipolar disorder, currently in remission, most recent episode unspecified Visit type - Emergency Visit Emergency Visit: Yes ED Registration Date: 09/28/18 Care time: The patient presented to the Emergency Department on the above date and was hospitalized for further evaluation of their emergent condition. - New Patient This patient is new to me today: No - Critical Care Critical Care patient: No
[2018-10-04] MEDS: ACETAMINOPHEN 1000 MG/100 ML VIAL (NON FORMULARY) IVPB PRN (12:35)
--- NOTE | 2018-10-04 14:29 | PN ---
Progress Note, Physician History of Present Illness: Remains on NC POD#2 sigmoidectomy with colostomy (Sidra's procedure) for sigmoid stercoral perforation with peritonitis. Bursts of PAF with RVR on IV Lopressor. Tolerating bedside PT. - Current Medication List Current Medications: Active Medications Acetaminophen (Ofirmev Injection -) 1,000 mg IVPB Q6H PRN PRN Reason: PAIN LEVEL 1-5 Albuterol/Ipratropium (Duoneb -) 1 amp NEB RQID [facility] Last Admin: 10/04/18 11:22 Dose: 1 amp Chlorhexidine Gluconate (Hibiclens For Decolonization -) 1 applic TP HS [facility] Last Admin: 10/03/18 22:58 Dose: 1 applic Diltiazem HCl (Cardizem Injection -) 10 mg IVPUSH Q4H PRN PRN Reason: TACHYCARDIA Meropenem 1 gm/ Dextrose 100 mls @ 200 mls/hr IVPB Q8H-IV [facility] Last Admin: 10/04/18 09:33 Dose: 200 mls/hr Famotidine/Sodium Chloride (Pepcid 20 Mg Premixed Ivpb -) 20 mg in 50 mls @ 100 mls/hr IVPB BID [facility] Last Admin: 10/04/18 09:48 Dose: 100 mls/hr Lactated Ringer's (Lactated Ringers Solution) 1,000 ml in 1,000 mls @ 125 mls/ hr IV ASDIR [facility] Last Admin: 10/04/18 08:30 Dose: 125 mls/hr Levothyroxine Sodium (Synthroid -) 100 mcg PO DAILY@0700 [facility] Levothyroxine Sodium (Synthroid Injection -) 50 mcg IVPUSH DAILY [facility] Last Admin: 10/04/18 09:39 Dose: 50 mcg [place] Carbonate (Eskalith -) 300 mg PO DAILY [facility] Last Admin: 10/04/18 09:48 Dose: Not Given Metoprolol Tartrate (Lopressor Injection -) 5 mg IVPUSH Q4H PRN PRN Reason: TACHYCARDIA Morphine Sulfate (Morphine Sulfate) 2 mg IVPUSH Q6H PRN PRN Reason: PAIN LEVEL 6-10 Mupirocin (Bactroban Ointment (For Decolonization) -) 1 applic NS BID [facility] Stop: 10/07/18 21:59 Last Admin: 10/04/18 09:32 Dose: 1 applic - Objective Vital Signs: Vital Signs Temperature 98 F 10/04/18 14:00 Pulse Rate 76 10/04/18 14:00 Respiratory Rate 14 10/04/18 14:00 Blood Pressure 119/80 10/04/18 14:00 O2 Sat by Pulse Oximetry (%) 95 10/04/18 09:00 Constitutional: Yes: No Distress, Calm, Thin Neck: Yes: Supple Cardiovascular: Yes: Regular Rate and Rhythm Respiratory: Yes: Regular, Diminished, On Nasal O2 Gastrointestinal: Yes: Soft, Hypoactive Bowel Sounds Edema: No Labs: CBC, BMP 10/04/18 05:30 10/04/18 05:30 INR, PTT INR 1.08 (0.83-1.09) 10/03/18 05:30 - ....Imaging EKG: Report Reviewed (Tele: Afib) Problem List - Problems (1) Diverticulitis of large intestine with perforation without abscess or bleeding Code(s): K57.20 - DVTRCLI OF LG INT W PERFORATION AND ABSCESS W/O BLEEDING (2) Hyperlipidemia Code(s): E78.5 - HYPERLIPIDEMIA, UNSPECIFIED Qualifiers: Hyperlipidemia type: unspecified Qualified Code(s): E78.5 - Hyperlipidemia , unspecified (3) Hypertension Code(s): I10 - ESSENTIAL (PRIMARY) HYPERTENSION Qualifiers: Hypertension type: essential hypertension Qualified Code(s): I10 - Essential (primary) hypertension (4) Hypothyroidism Code(s): E03.9 - HYPOTHYROIDISM, UNSPECIFIED Qualifiers: Hypothyroidism type: unspecified Qualified Code(s): E03.9 - Hypothyroidism , unspecified (5) Paroxysmal atrial fibrillation Code(s): I48.0 - PAROXYSMAL ATRIAL FIBRILLATION (6) History of open sigmoidectomy Code(s): Z98.890 - OTHER SPECIFIED POSTPROCEDURAL STATES; Z90.49 - ACQUIRED ABSENCE OF OTHER SPECIFIED PARTS OF DIGESTIVE TRACT Assessment/Plan 09/30/2018 Echo: Normal LV size and fxn LVEF 60-65%, mildly impaired LV compliance, normal RV fxn, normal atrial sizes, mild TR, trace-mild MR 1. POD#2 sigmoidectomy with colostomy (Sidra's procedure) for sigmoid stercoral perforation with peritonitis 2. Paroxysmal AF in SR [id number] score of 3 3. Hypertension 4. Hypothyroidism 5. Bipolar disorder 6. Diastolic dysfunction 7. Acute on CKD with hypernatremia referable to renal hypoperfusion/volume shifts in setting of abdominal infection/sepsis PLAN: 1. Resume a/c once post-op hemostasis achieved. Continue IV Lopressor and Cardizem for rate control 2. Empiric antibiotic course, await return of bowel function 3. IV hydration and free water repletion with monitoring renal function and electrolytes 4. Wound care 5. BD, wean FIO2 as tolerated, DVT and GI prophylaxis
--- NOTE | 2018-10-04 14:57 | PN ---
Progress Note, Physician History of Present Illness: patient stable looks better - Current Medication List Current Medications: Active Medications Acetaminophen (Ofirmev Injection -) 1,000 mg IVPB Q6H PRN PRN Reason: PAIN LEVEL 1-5 Albuterol/Ipratropium (Duoneb -) 1 amp NEB RQID [facility] Last Admin: 10/04/18 11:22 Dose: 1 amp Chlorhexidine Gluconate (Hibiclens For Decolonization -) 1 applic TP HS [facility] Last Admin: 10/03/18 22:58 Dose: 1 applic Diltiazem HCl (Cardizem Injection -) 10 mg IVPUSH Q4H PRN PRN Reason: TACHYCARDIA Meropenem 1 gm/ Dextrose 100 mls @ 200 mls/hr IVPB Q8H-IV [facility] Last Admin: 10/04/18 09:33 Dose: 200 mls/hr Famotidine/Sodium Chloride (Pepcid 20 Mg Premixed Ivpb -) 20 mg in 50 mls @ 100 mls/hr IVPB BID [facility] Last Admin: 10/04/18 09:48 Dose: 100 mls/hr Lactated Ringer's (Lactated Ringers Solution) 1,000 ml in 1,000 mls @ 125 mls/ hr IV ASDIR [facility] Last Admin: 10/04/18 08:30 Dose: 125 mls/hr Levothyroxine Sodium (Synthroid -) 100 mcg PO DAILY@0700 [facility] Levothyroxine Sodium (Synthroid Injection -) 50 mcg IVPUSH DAILY [facility] Last Admin: 10/04/18 09:39 Dose: 50 mcg [place] Carbonate (Eskalith -) 300 mg PO DAILY [facility] Last Admin: 10/04/18 09:48 Dose: Not Given Metoprolol Tartrate (Lopressor Injection -) 5 mg IVPUSH Q4H PRN PRN Reason: TACHYCARDIA Morphine Sulfate (Morphine Sulfate) 2 mg IVPUSH Q6H PRN PRN Reason: PAIN LEVEL 6-10 Mupirocin (Bactroban Ointment (For Decolonization) -) 1 applic NS BID [facility] Stop: 10/07/18 21:59 Last Admin: 10/04/18 09:32 Dose: 1 applic - Objective Vital Signs: Vital Signs Temperature 98 F 10/04/18 14:00 Pulse Rate 76 10/04/18 14:00 Respiratory Rate 14 10/04/18 14:00 Blood Pressure 119/80 10/04/18 14:00 O2 Sat by Pulse Oximetry (%) 95 10/04/18 09:00 Constitutional: Yes: No Distress, Calm HENT: Yes: Atraumatic Cardiovascular: Yes: Regular Rate and Rhythm Respiratory: Yes: Regular, CTA Bilaterally Gastrointestinal: Yes: Normal Bowel Sounds, Other (colostomy) Genitourinary: Yes: Miguel Present Musculoskeletal: Yes: WNL Extremities: Yes: WNL Wound/Incision: Yes: Dressing Dry and Intact Neurological: Yes: Alert, Oriented Psychiatric: Yes: Alert, Oriented Labs: CBC, BMP 10/04/18 05:30 10/04/18 05:30 INR, PTT INR 1.08 (0.83-1.09) 10/03/18 05:30 Assessment/Plan - Problems (1) Diverticulitis of large intestine with perforation without abscess or bleeding Code(s): K57.20 - DVTRCLI OF LG INT W PERFORATION AND ABSCESS W/O BLEEDING (2) Suprapubic pain Code(s): R10.2 - PELVIC AND PERINEAL PAIN (3) Constipation Code(s): K59.00 - CONSTIPATION, UNSPECIFIED Qualifiers: Constipation type: other constipation type Qualified Code(s): K59.09 - Other constipation (4) Paroxysmal atrial fibrillation Code(s): I48.0 - PAROXYSMAL ATRIAL FIBRILLATION (5) Bipolar disorder Code(s): F31.9 - BIPOLAR DISORDER, UNSPECIFIED Qualifiers: Active/Remission status: in remission of unspecified degree Qualified Code( s): F31.70 - Bipolar disorder, currently in remission, most recent episode unspecified (6) Hypertension Code(s): I10 - ESSENTIAL (PRIMARY) HYPERTENSION Qualifiers: Hypertension type: essential hypertension Qualified Code(s): I10 - Essential (primary) hypertension (7) Hyperlipidemia Code(s): E78.5 - HYPERLIPIDEMIA, UNSPECIFIED Qualifiers: Hyperlipidemia type: unspecified Qualified Code(s): E78.5 - Hyperlipidemia , unspecified (8) Hypothyroidism Code(s): E03.9 - HYPOTHYROIDISM, UNSPECIFIED Qualifiers: Hypothyroidism type: unspecified Qualified Code(s): E03.9 - Hypothyroidism , unspecified (9) Hiatal hernia without gangrene or obstruction Code(s): K44.9 - DIAPHRAGMATIC HERNIA WITHOUT OBSTRUCTION OR GANGRENE plan hydration continue meropenam rest as per icu monitor colostomy wound care rest as per surgery cc 40 min
--- NOTE | 2018-10-04 17:13 | PN ---
Progress Note (short form) - Note Progress Note: Patient's HR ranging between 150's-160's. Given IV Lopressor 5mg stat, IV Morphine for pain control, now HR is around 125-130's bpm. Will cancel the transfer today. Informed Dr. Perez, ordered IV Metoprolol 5mg Q6H Lay. BMP BID ordered.
--- NOTE | 2018-10-04 17:38 | PATH ---
Surgical Pathology Report Patient Name: DON MYERS [facility]. Rec. #: [id number] /Age/Gender: 1950 (Age: 67) / F Account: [id number] Location: ICU GAS WELDER Taken: 10/02/2018 Received: 10/03/2018 Reported: 10/09/2018 Physicians: Gus Savage M.D. Specimen(s) Received BX SIGMOID Clinical History Sigmoid diverticulitis Post- operative findings: Stercoral perforation Final Diagnosis SIGMOID COLON, RESECTION: SEGMENT OF COLON WITH TRANSMURAL THINNING, MARKED ACUTE INFLAMMATION, AND DEFECTS CONSISTENT WITH CLINICAL RUPTURE. MARKED ACUTE SEROSITIS SURGICAL MARGINS ARE VIABLE. Electronically Signed Grecia Griffin M.D. Gross Description Received in formalin labeled "portion of sigmoid colon," is a 14 cm in length portion of colon with 2 stapled mucosal margins and moderate attached pericolonic adipose tissue. The serosa is watters-purvis with 2 large, adjacent defects (consistent with rupture sites) and abundant attached exudate. The lumen contains abundant fecal material. The mucosa is watters with flattened folds. No mucosal masses are identified. Separately received within the same container is an additional 1.5 cm in length portion of colon with one stapled mucosal margin and one open margin. This shorter length of bowel displays attached exudate and an unremarkable mucosa. Economic Geographer sections are submitted in 8 cassettes as follows: 8-7-[id number] stapled mucosal margins from longer portion of bowel; 3-1-pcdlafor from defects; 8-8-[id number] pharmaceutical sales representative bowel (from longer portion); 8-pharmaceutical sales representative section from shorter length of bowel. /10/03/201810/03/2018
[2018-10-04] MEDS: METOPROLOL TARTRATE 5 MG/5 ML VIAL IVPUSH SCH (17:53)
--- NOTE | 2018-10-04 18:15 | PN ---
Teaching Attending Note Name of Resident: Yaima Baeza ATTENDING PHYSICIAN STATEMENT I saw and evaluated the patient. I reviewed the resident's note and discussed the case with the resident. I agree with the resident's findings and plan as documented with exceptions below. SUBJECTIVE: Patient seen and examined. extubated, awake, reports some abdominal pain, denies passing gas. No other complaints. oriented to self only. OBJECTIVE: Vital Signs Period Temp Pulse Resp BP Sys/Choi Pulse Ox Last 24 Hr 97.5 F-98.2 F 72-150 12-20 109-150/77-96 95-95 Intake & Output 10/01/18 10/02/18 10/03/18 10/04/18 23:59 23:59 23:59 23:59 Intake Total 4170 6522 3590 1180 Output Total 500 1900 1110 1070 Balance 3670 4622 2480 110 Weight 165 lb 166 lb 8 oz General: lying in bed, mild tachypnea, drowsy, responds to questions, awake Chest: poor effort, postive air entry Abdomen:Soft, distended, tenderness around the surgical site, hypoactive bowel sounds, left colostomy present, no stool yet, no guarding or rigidity present Extremities: no edema CVS:S1S2 irregular, tachycardic Active Medications Acetaminophen (Ofirmev Injection -) 1,000 mg IVPB Q6H PRN PRN Reason: PAIN LEVEL 1-5 Albuterol/Ipratropium (Duoneb -) 1 amp NEB RQID [facility] Last Admin: 10/04/18 16:23 Dose: 1 amp Chlorhexidine Gluconate (Hibiclens For Decolonization -) 1 applic TP HS [facility] Last Admin: 10/03/18 22:58 Dose: 1 applic Diltiazem HCl (Cardizem Injection -) 10 mg IVPUSH Q4H PRN PRN Reason: TACHYCARDIA Meropenem 1 gm/ Dextrose 100 mls @ 200 mls/hr IVPB Q8H-IV [facility] Last Admin: 10/04/18 17:32 Dose: 200 mls/hr Famotidine/Sodium Chloride (Pepcid 20 Mg Premixed Ivpb -) 20 mg in 50 mls @ 100 mls/hr IVPB BID [facility] Last Admin: 10/04/18 09:48 Dose: 100 mls/hr Lactated Ringer's (Lactated Ringers Solution) 1,000 ml in 1,000 mls @ 125 mls/ hr IV ASDIR [facility] Last Admin: 10/04/18 08:30 Dose: 125 mls/hr Levothyroxine Sodium (Synthroid -) 100 mcg PO DAILY@0700 [facility] Levothyroxine Sodium (Synthroid Injection -) 50 mcg IVPUSH DAILY [facility] Last Admin: 10/04/18 09:39 Dose: 50 mcg [place] Carbonate (Eskalith -) 300 mg PO DAILY [facility] Last Admin: 10/04/18 09:48 Dose: Not Given Metoprolol Tartrate (Lopressor Injection -) 5 mg IVPUSH Q6H [facility] Last Admin: 10/04/18 17:53 Dose: Not Given Mupirocin (Bactroban Ointment (For Decolonization) -) 1 applic NS BID [facility] Stop: 10/07/18 21:59 Last Admin: 10/04/18 09:32 Dose: 1 applic Laboratory Results - last 24 hr 10/04/18 10/04/18 05:30 05:30 WBC 14.8 H RBC 4.10 Hgb 10.8 Hct 34.5 MCV 84.1 MCH 26.4 MCHC 31.4 L RDW 14.2 Plt Count 214 MPV 8.5 Absolute Neuts (auto) 13.0 H Neutrophils % 87.6 H Neutrophils % (Manual) 79.1 Band Neutrophils % 0.0 Lymphocytes % 4.6 L D Lymphocytes % (Manual) 10.0 Monocytes % 7.5 Monocytes % (Manual) 3 L Eosinophils % 0.1 Eosinophils % (Manual) 0.0 Basophils % 0.2 Basophils % (Manual) 0.9 D Myelocytes % (Man) 4 H D Promyelocytes % (Man) 0 Blast Cells % (Manual) 1 H D Nucleated RBC % 0 Metamyelocytes 1 Platelet Estimate Normal Sodium 152 H Potassium 4.0 Chloride 123 H Carbon Dioxide 24 Anion Gap 5 L BUN 41 H Creatinine 1.7 H Creat Clearance w eGFR 29.80 Random Glucose 118 H Calcium 8.5 Phosphorus 3.7 Magnesium 2.0 Total Bilirubin 0.3 AST 22 ALT 17 Alkaline Phosphatase 72 Total Protein 4.0 L Albumin 1.4 L ASSESSMENT AND PLAN: 67yo F wtih PMH cholecystitis and bipolar presented with abdominal pain and constipation for [address] + 5.4x4.3x3.4cm pocket concerning for large inflammed diverticulum vs contained perforation, found with new onset Afib with RVR. -Sepsis due suspected sigmoid diverticulitis with localized perforation now with concerns for abscess/worsening edema s/p sigmoid resection with colostomy ( kassandra's procedure) 10/02 -Bowel obstruction+/- ileus likely from above -acute respiratory distress, suspect from progressive abdominal distension/ Large hiatal hernia/atelectasis+/- sepsis, less likley CHF/ARDS currently -Acute hypoxic respiratory failure s/p prolonged post op intubation -New onset Afib with RVR -Hypokalemia -MONIKA, cr rising, likely from hypovolumia/progressive sepsis and vinod-operative fluid shift -Hypernatremia, suspect from hypovolumia/third spacing -Dilated CBD, asymptomatic -Bipolar disorder -Plan: POD 2 Extubated. Meropenem day 3. Blood cx neg so far. Wound care per surgery. NPO with NG drainage. REnal consult noted. LR per renal. BMP BID Afib with RVR today, change IV metoprolol to standing. Diltiazem prn. Resume heparin drip when ok with surgery. PO lithium when able to take PO Change levothyroxine to IV for now. DVTPPX heparin drip, to be resumed per surgery. COntinue ICU level of monitoring for today. Dispo critically ill with progressive clinical deterioration, s/p urgent surgery. PLan co-ordinated with ICU team and nursing. Total critical care time spent 40 min.
[2018-10-04] MEDS ORDERED: PT OWN MED DRAWER 7, Y5N ONE (21:11)
[2018-10-04] MEDS: CHLORHEXIDINE GLUCONATE 4% CLEANSER FOR DECOLONIZATION TP SCH (21:15)
[2018-10-04 21:26] LABS: ANION GAP 6 MMOL/L (8-16); BLOOD UREA NITROGEN 42 mg/dL (7-18); CALCIUM 8.4 mg/dL (8.5-10.1); CHLORIDE 125 mmol/L (98-107); CO2 26 mmol/L (21-32); CREATININE 1.8 mg/dL (0.55-1.3); GLUCOSE,RANDOM 107 mg/dL (74-106); SODIUM 157 mmol/L (136-145)
[2018-10-04] MEDS: DEXTROSE 5%-0.45% SALINE 1,000 ML IV SCH (22:46)
[2018-10-05] MEDS: METOPROLOL TARTRATE 5 MG/5 ML VIAL IVPUSH SCH ×5 (00:02→21:29)
[2018-10-05] MEDS: MEROPENEM 1 GM in DEXTROSE 5%-WATER 100 ML IVPB SCH ×3 (01:29→17:41)
--- NOTE | 2018-10-05 05:19 | PN ---
Physical Exam: SUBJECTIVE: Patient seen and examined at bed side , had some confusion , hallucination , paranoid behavior , denies any cp, sob , in NSR since med night , was in Afib before that. free water intake , no BM yet .morales with clear urine . OBJECTIVE: Vital Signs Period Temp Pulse Resp BP Sys/Choi Pulse Ox Last 24 Hr 97.5 F-100.2 F 72-150 12-22 107-152/64-109 95-97 GENERAL: confused oriented to self only HEAD: Normal with no signs of trauma. EYES: PERRL, extraocular movements intact ENT: Dry MMM NECK: Trachea midline, LUNGS: diminished breath sounds at the bases , no wheezes, HEART: Regular rate and rhythm, S1, S2 without murmur, rub or gallop. ABDOMEN: Soft, diffuse tender, mild distended , mid surgical dressing, hypoactive bowel sounds EXTREMITIES: 2+ pulses, warm, well-perfused, no edema. NEUROLOGICAL: no focal deficit . PSYCH: hyper , with halucination and paranoid thoughts SKIN: Warm, dry, Laboratory Results - last 24 hr 10/01/18 10/04/18 10/04/18 22:00 05:30 05:30 WBC 14.8 H RBC 4.10 Hgb 10.8 Hct 34.5 MCV 84.1 MCH 26.4 MCHC 31.4 L RDW 14.2 Plt Count 214 MPV 8.5 Absolute Neuts (auto) 13.0 H Neutrophils % 87.6 H Neutrophils % (Manual) 79.1 Band Neutrophils % 0.0 Lymphocytes % 4.6 L D Lymphocytes % (Manual) 10.0 Monocytes % 7.5 Monocytes % (Manual) 3 L Eosinophils % 0.1 Eosinophils % (Manual) 0.0 Basophils % 0.2 Basophils % (Manual) 0.9 D Myelocytes % (Man) 4 H D Promyelocytes % (Man) 0 Blast Cells % (Manual) 1 H D Nucleated RBC % 0 Metamyelocytes 1 Platelet Estimate Normal Sodium 152 H Potassium 4.0 Chloride 123 H Carbon Dioxide 24 Anion Gap 5 L BUN 41 H Creatinine 1.7 H Creat Clearance w eGFR 29.80 POC Glucometer Random Glucose 118 H Calcium 8.5 Phosphorus 3.7 Magnesium 2.0 Total Bilirubin 0.3 AST 22 ALT 17 Alkaline Phosphatase 72 Total Protein 4.0 L Albumin 1.4 L Crossmatch IS Only See Detail 12/07/18 12/07/18 17:57 20:00 WBC RBC Hgb Hct MCV MCH MCHC RDW Plt Count MPV Absolute Neuts (auto) Neutrophils % Neutrophils % (Manual) Band Neutrophils % Lymphocytes % Lymphocytes % (Manual) Monocytes % Monocytes % (Manual) Eosinophils % Eosinophils % (Manual) Basophils % Basophils % (Manual) Myelocytes % (Man) Promyelocytes % (Man) Blast Cells % (Manual) Nucleated RBC % Metamyelocytes Platelet Estimate Sodium 157 H Potassium 4.0 Chloride 125 H Carbon Dioxide 26 Anion Gap 6 L BUN 42 H Creatinine 1.8 H Creat Clearance w eGFR 27.90 POC Glucometer 127.27923 Random Glucose 107 H Calcium 8.4 L Phosphorus Magnesium Total Bilirubin AST ALT Alkaline Phosphatase Total Protein Albumin Crossmatch IS Only Active Medications Generic Name Dose Route Start Last Admin Trade Name Freq PRN Reason Stop Dose Admin Acetaminophen 1,000 mg 10/04/18 07:11 10/04/18 12:35 Ofirmev Injection - IVPB 1,000 mg Q6H PRN Administration PAIN LEVEL 1-5 Albuterol/Ipratropium 1 amp 10/02/18 20:00 10/04/18 20:50 Duoneb - NEB 1 amp RQID THOMAS Administration Chlorhexidine Gluconate 1 applic 10/02/18 22:00 10/04/18 21:15 Hibiclens For Decolonization - TP 1 applic HS THOMAS Administration Diltiazem HCl 10 mg 10/02/18 20:15 Cardizem Injection - IVPUSH Q4H PRN TACHYCARDIA Meropenem 1 gm/ Dextrose 100 mls @ 200 mls/hr 10/03/18 02:00 10/05/18 01:29 IVPB 200 mls/hr Q8H-IV THOMAS Administration Famotidine/Sodium Chloride 20 mg in 50 mls @ 100 mls/hr 10/02/18 22:00 21:13 Pepcid 20 Mg Premixed Ivpb - IVPB 100 mls/hr BID THOMAS Administration Dextrose/Sodium Chloride 1,000 mls @ 125 mls/hr 10/04/18 21:45 10/04/18 22:46 D5-1/2ns - IV 125 mls/hr ASDIR THOMAS Administration Levothyroxine Sodium 100 mcg 12/06/18 07:00 Synthroid - PO DAILY@0700 THOMAS Levothyroxine Sodium 50 mcg 10/03/18 10:00 10/04/18 09:39 Synthroid Injection - IVPUSH 50 mcg DAILY THOMAS Administration [place] Carbonate 300 mg 10/03/18 10:00 10/04/18 09:48 Eskalith - PO Not Given DAILY THOMAS Metoprolol Tartrate 5 mg 10/04/18 18:00 10/05/18 00:02 Lopressor Injection - IVPUSH 5 mg Q6H THOMAS Administration Mupirocin 1 applic 10/02/18 22:00 10/04/18 21:15 Bactroban Ointment (For Decolonization) - NS 10/07/18 21:59 1 applic BID THOMAS Administration CBC, BMP 10/05/18 05:30 10/05/18 18:07 ASSESSMENT/PLAN: 67 y/o female with PMH of cholecystitis and bipolar disorder presented to the ED with abdominal pain and constipation since found to have a 5x4.3x3.4 oval shaped structure with air possible representing an inflamed diverticulum vs. a contained perforation # sepsis 2/2 perforated diverticulitis * re elevation in WBC , temp 100.2 over night * re send schneider cx * F/U peritoneal cx * CXR results noted with progressive congestion/infiltrates * cont Meropenem , add vanco per ID * monitor BP #MONIKA # Hypernatreia * likely due to renal hypoprofusion/volume shifts in setting of abdominal infection/sepsis * nephro on board * hypotonic fluids * BMP daily #Sigmoid diverticulitis w/ perforation s/p resection/colostomy, POD# 3 * extubated * abx Meropenem day 4 * IV fluids Hypotonic D5/1/2 NS @125 cc/hr * pain control * follow surgery recommendation # Iluis vs obstruction * hypoactive bowel sound * No BM yet , colostomy bag empty * encourage free water intake #Paroxysmal atrial fibrillation * [id number] score of 3 * NSR since mid night , before run into PAFIB * BB standing : metoprolol tartrate 50 BID with lopressor 5mg PRN * Cardizim PRN * hold AC till homeostasis * cardiology on board #Diastolic LV dysfunction * with clinical class 0 NYHA classification LV failure #Bipolar Disorder * c/w with lithium * monitor level #Hypothyroidism * c/w synthroid * TSH in AM #F/E/N * hypotonic fluids D5 with alternation D5 1/2 NS * Hyper natremic * free water intake #DVT PPX: SCDS B/L # dispo * cont ICU monitoring Visit type - Emergency Visit Emergency Visit: Yes ED Registration Date: 09/28/18 Care time: The patient presented to the Emergency Department on the above date and was hospitalized for further evaluation of their emergent condition. - New Patient This patient is new to me today: No - Critical Care Critical Care patient: Yes Total Critical Care Time (in minutes): 45 Critical Care Statement: The care of this patient involved high complexity decision making to prevent further life threatening deterioration of the patient 's condition and/or to evaluate & treat vital organ system(s) failure or risk of failure. - Discharge Referral Referred to [facility] Med P.C.: No
[2018-10-05 05:59] LABS: BASO % 0.4 % (0-2.0); EOS % 0.4 % (0-4.5); LYMPH % 5.8 % (8-40); MCH 26.1 pg (25.7-33.7); MCHC 31.4 g/dl (32.0-36.0); MEAN CELL VOLUME 83.2 fl (80-96); MEAN PLT VOLUME 8.5 fl (7.5-11.1); MONO % 6.5 % (3.8-10.2); NEUT % 86.9 % (42.8-82.8); PLATELET COUNT 243 K/MM3 (134-434); RBC 3.84 M/mm3 (3.60-5.2); RDW 13.9 % (11.6-15.6); WHITE BLOOD COUNT 17.7 K/mm3 (4.0-10.0)
[2018-10-05 06:32] LABS: ALBUMIN 1.6 g/dl (3.4-5.0); ALK PHOS 85 U/L (45-117); ANION GAP 6 MMOL/L (8-16); BILIRUBIN,TOTAL 0.2 mg/dL (0.2-1); BLOOD UREA NITROGEN 40 mg/dL (7-18); CALCIUM 8.4 mg/dL (8.5-10.1); CHLORIDE 127 mmol/L (98-107); CO2 26 mmol/L (21-32); CREATININE 1.7 mg/dL (0.55-1.3); GLUCOSE,RANDOM 150 mg/dL (74-106); MAGNESIUM 2.1 mg/dL (1.8-2.4); PHOSPHOROUS 2.8 mg/dL (2.5-4.9); POTASSIUM 4.1 mmol/L (3.5-5.1); SGOT/AST 32 U/L (15-37); SGPT/ALT 18 U/L (13-61); SODIUM 159 mmol/L (136-145); TOT PROT 4.3 g/dl (6.4-8.2)
[2018-10-05] MEDS: ALBUTEROL SO4 2.5/IPRATROPIUM 0.5 INH SOL 3 ML VIAL.NEB. NEB SCH ×4 (07:45→20:54)
--- NOTE | 2018-10-05 07:49 | PN ---
Progress Note (short form) - Note Progress Note: Chief Complaint: Events noted, notes reviewed, exhibiting paranoid behavior, denies ay chest pain or dyspnea, paroxysmal atrial fibrillation noted, currently in sinus rhythm History of Present Illness: Seen and examined in the ICU. Events noted, notes reviewed, exhibiting paranoid behavior, denies ay chest pain or dyspnea, paroxysmal atrial fibrillation noted , currently in sinus rhythm Echocardiography dated 09/30/2018 revealed normal LV size and function with LVEF 60-65%, mildly impaired LV compliance, normal RV function, mild TR and trace-mild MR - Current Medication List Current Medications Acetaminophen (Ofirmev Injection -) 1,000 mg IVPB Q6H PRN PRN Reason: PAIN LEVEL 1-5 Last Admin: 10/04/18 12:35 Dose: 1,000 mg Albuterol/Ipratropium (Duoneb -) 1 amp NEB RQID [facility] Last Admin: 10/05/18 07:45 Dose: 1 amp Chlorhexidine Gluconate (Hibiclens For Decolonization -) 1 applic TP HS [facility] Last Admin: 10/04/18 21:15 Dose: 1 applic Diltiazem HCl (Cardizem Injection -) 10 mg IVPUSH Q4H PRN PRN Reason: TACHYCARDIA Meropenem 1 gm/ Dextrose 100 mls @ 200 mls/hr IVPB Q8H-IV [facility] Last Admin: 10/05/18 01:29 Dose: 200 mls/hr Famotidine/Sodium Chloride (Pepcid 20 Mg Premixed Ivpb -) 20 mg in 50 mls @ 100 mls/hr IVPB BID [facility] Last Admin: 10/04/18 21:13 Dose: 100 mls/hr Dextrose/Sodium Chloride (D5-1/2ns -) 1,000 mls @ 125 mls/hr IV ASDIR [facility] Last Admin: 10/04/18 22:46 Dose: 125 mls/hr Levothyroxine Sodium (Synthroid -) 100 mcg PO DAILY@0700 [facility] Levothyroxine Sodium (Synthroid Injection -) 50 mcg IVPUSH DAILY [facility] Last Admin: 10/04/18 09:39 Dose: 50 mcg [place] Carbonate (Eskalith -) 300 mg PO DAILY [facility] Last Admin: 10/04/18 09:48 Dose: Not Given Metoprolol Tartrate (Lopressor Injection -) 5 mg IVPUSH Q6H [facility] Last Admin: 10/05/18 06:24 Dose: 5 mg Mupirocin (Bactroban Ointment (For Decolonization) -) 1 applic NS BID [facility] Stop: 10/07/18 21:59 Last Admin: 10/04/18 21:15 Dose: 1 applic - Review of Systems Cardiovascular: As noted above Respiratory: denies: Cough or Sputum Production Gastrointestinal: denies: Nausea, Vomiting, Diarrhea, Constipation or Abdominal Pain Musculoskeletal: No symptoms reported Neurological: No symptoms reported - Objective Vital Signs: Last Vital Signs Temp Pulse Resp BP Pulse Ox 99.4 F 96 H 17 159/93 97 10/05/18 06:00 10/05/18 06:00 10/05/18 06:00 10/05/18 06:00 10/04/18 20:48 Intake & Output 10/02/18 10/03/18 10/04/18 10/05/18 23:59 23:59 23:59 23:59 Intake Total 6522 3590 1180 2200 Output Total 1900 1110 2070 1600 Balance 4622 2480 -890 600 Weight 165 lb 166 lb 8 oz 166 lb 10.711 oz Neck: Supple Negative JVD Cardiovascular: S1 S2 Regular Rate and Rhythm Respiratory: Diminished breath sounds Gastrointestinal: Soft Benign hypoactive Bowel Sounds Ext: Negative Edema Labs: ABG Results ABG pH 7.39 (7.35-7.45) 10/01/18 22:28 ABG pCO2 at Pt Temp 36.5 mmHg (35-45) 10/01/18 22:28 ABG pO2 at Pt Temp 82.6 mmHg (80-100) 10/01/18 22:28 ABG HCO3 21.6 meq/L (22-26) L 10/01/18 22:28 ABG O2 Sat (Measured) 95.9 % (90-98.9) 10/01/18 22:28 ABG O2 Content 16.1 % vol (15-22) 10/01/18 22:28 ABG Base Excess -2.4 meq/l (-2-2) L 10/01/18 22:28 CBC, BMP 10/05/18 05:30 10/05/18 05:30 Hepatic Panel Total Bilirubin 0.2 mg/dL (0.2-1) 10/05/18 05:30 Direct Bilirubin 0.1 mg/dL (0.0-0.2) 10/02/18 05:30 AST 32 U/L (15-37) 10/05/18 05:30 ALT 18 U/L (13-61) 10/05/18 05:30 Alkaline Phosphatase 85 U/L (45-117) 10/05/18 05:30 Albumin 1.6 g/dl (3.4-5.0) L 10/05/18 05:30 Assessment/Plan ASSESSMENT: 1. POD#3 sigmoidectomy with colostomy (Sidra's procedure) for sigmoid stercoral perforation with peritonitis 2. Paroxysmal atrial fibrillation [id number] score of 3 currently on no A/C 3. Diastolic LV dysfunction with clinical class 0 NYHA classification LV failure 4. Hypertension 5. Hypothyroidism 6. Bipolar disorder, paranoid behavior 7. Acute on CKD 8. Hypernatremia PLAN: 1. Resume A/C once post-op hemostasis is achieved 2. Continue IV Lopressor for rate control 3. Continue IV Cardizem for rate control 4. Antibiotic as per the primary team 5. IV hydration D5/0.5 NS with close monitoring of renal function and electrolytes, correction of Hypernatremia Rene Yanes MD
[2018-10-05] MEDS ORDERED: INSULIN (NOVOLOG) ASPART 100 UNITS/ML 10ML VIAL ONE (09:12)
[2018-10-05] MEDS: MUPIROCIN 2% TOPICAL OINTMENT FOR DECOLONIZATION NS SCH ×2 (09:36→22:00)
[2018-10-05] MEDS: FAMOTIDINE 20 MG/50 ML IVPB 20 MG/50 ML MG IVPB SCH ×2 (09:36→21:32)
[2018-10-05] MEDS: LEVOTHYROXINE SODIUM 100 MCG VIAL IVPUSH SCH (09:41)
[2018-10-05] MEDS: DEXTROSE 5%-0.45% SALINE 1,000 ML IV SCH (09:42)
[2018-10-05] MEDS: LITHIUM CARBONATE 300 MG CAPSULE (FP) PO SCH (09:43)
[2018-10-05 10:02] LABS: ACANTHOCYTES 1+; ANISOCYTOSIS 1+; MACROCYTOSIS 0; OVALOCYTE 1+; PLATELET ESTIMATE NORMAL
--- NOTE | 2018-10-05 10:23 | PN ---
Teaching Attending Note Name of Resident: Airam Welsh ATTENDING PHYSICIAN STATEMENT I saw and evaluated the patient. I reviewed the resident's note and discussed the case with the resident. I agree with the resident's findings and plan as documented. SUBJECTIVE: Patient seen and examined in the ICU. Remains extubated. Awake and alert. Denies CP or SOB. No pressors. Noted electrolyte disturbance. Intake & Output 10/02/18 10/03/18 10/04/18 10/05/18 23:59 23:59 23:59 23:59 Intake Total 6522 3590 1180 2200 Output Total 1900 1110 2070 1600 Balance 4622 2480 -890 600 Weight 165 lb 166 lb 8 oz 166 lb 10.711 oz Last Vital Signs Temp Pulse Resp BP Pulse Ox 99.4 F 88 19 163/92 96 10/05/18 06:00 10/05/18 08:00 10/05/18 08:00 10/05/18 08:00 10/05/18 08:56 Active Medications Acetaminophen (Ofirmev Injection -) 1,000 mg IVPB Q6H PRN PRN Reason: PAIN LEVEL 1-5 Last Admin: 10/04/18 12:35 Dose: 1,000 mg Albuterol/Ipratropium (Duoneb -) 1 amp NEB RQID THOMAS Last Admin: 10/05/18 07:45 Dose: 1 amp Chlorhexidine Gluconate (Hibiclens For Decolonization -) 1 applic TP HS THOMAS Last Admin: 10/04/18 21:15 Dose: 1 applic Diltiazem HCl (Cardizem Injection -) 10 mg IVPUSH Q4H PRN PRN Reason: TACHYCARDIA Meropenem 1 gm/ Dextrose 100 mls @ 200 mls/hr IVPB Q8H-IV THOMAS Last Admin: 10/05/18 01:29 Dose: 200 mls/hr Famotidine/Sodium Chloride (Pepcid 20 Mg Premixed Ivpb -) 20 mg in 50 mls @ 100 mls/hr IVPB BID THOMAS Last Admin: 10/05/18 09:36 Dose: 100 mls/hr Dextrose/Sodium Chloride (D5-1/4ns -) 1,000 mls @ 125 mls/hr IV ASDIR THOMAS Levothyroxine Sodium (Synthroid -) 100 mcg PO DAILY@0700 [facility] Levothyroxine Sodium (Synthroid Injection -) 50 mcg IVPUSH DAILY [facility] Last Admin: 10/05/18 09:41 Dose: 50 mcg [place] Carbonate (Eskalith -) 300 mg PO DAILY [facility] Last Admin: 10/05/18 09:43 Dose: 300 mg Metoprolol Tartrate (Lopressor Injection -) 5 mg IVPUSH Q6H [facility] Last Admin: 10/05/18 06:24 Dose: 5 mg Mupirocin (Bactroban Ointment (For Decolonization) -) 1 applic NS BID [facility] Stop: 10/07/18 21:59 Last Admin: 10/05/18 09:36 Dose: 1 applic GENERAL: extubated, awake and alert HEENT: AT/NC. Dry mucus membranes. NECK: Supple. LUNGS: few rhonchi. No wheezes HEART: RRR. Normal S1, S2. No murmurs noted. ABDOMEN: Soft, NT/ND. Ostomy bag in place. Surgical abdominal dressing c/d/i. MUSCULOSKELETAL: No peripheral edema noted. EXTREMITIES: 2+ dorsalis pedis pulses b/l. NEUROLOGICAL: Non-focal. Laboratory Results - last 24 hr 10/01/18 10/04/18 10/04/18 22:00 17:57 20:00 WBC RBC Hgb Hct MCV MCH MCHC RDW Plt Count MPV Absolute Neuts (auto) Neutrophils % Neutrophils % (Manual) Band Neutrophils % Lymphocytes % Lymphocytes % (Manual) Monocytes % Monocytes % (Manual) Eosinophils % Eosinophils % (Manual) Basophils % Basophils % (Manual) Myelocytes % (Man) Promyelocytes % (Man) Blast Cells % (Manual) Nucleated RBC % Metamyelocytes Hypochromia Platelet Estimate Polychromasia Poikilocytosis Anisocytosis Microcytosis Macrocytosis Ovalocytes Acanthocytes (Spur) Sodium 157 H Potassium 4.0 Chloride 125 H Carbon Dioxide 26 Anion Gap 6 L BUN 42 H Creatinine 1.8 H Creat Clearance w eGFR 27.90 POC Glucometer 127.39223 Random Glucose 107 H Calcium 8.4 L Phosphorus Magnesium Total Bilirubin AST ALT Alkaline Phosphatase Total Protein Albumin Crossmatch IS Only See Detail 10/05/18 10/05/18 05:30 05:30 WBC 17.7 H RBC 3.84 Hgb 10.0 L Hct 32.0 L MCV 83.2 MCH 26.1 MCHC 31.4 L RDW 13.9 Plt Count 243 MPV 8.5 Absolute Neuts (auto) 15.4 H Neutrophils % 86.9 H Neutrophils % (Manual) 79.8 Band Neutrophils % 0.0 Lymphocytes % 5.8 L D Lymphocytes % (Manual) 9.1 Monocytes % 6.5 Monocytes % (Manual) 5 Eosinophils % 0.4 D Eosinophils % (Manual) 0.0 Basophils % 0.4 Basophils % (Manual) 0.0 Myelocytes % (Man) 5 H D Promyelocytes % (Man) 1 D Blast Cells % (Manual) 0 D Nucleated RBC % 0 Metamyelocytes 0 D Hypochromia 0 Platelet Estimate Normal Polychromasia 0 Poikilocytosis 1+ Anisocytosis 1+ Microcytosis 1+ Macrocytosis 0 Ovalocytes 1+ Acanthocytes (Spur) 1+ Sodium 159 H Potassium 4.1 Chloride 127 H Carbon Dioxide 26 Anion Gap 6 L BUN 40 H Creatinine 1.7 H Creat Clearance w eGFR 29.80 POC Glucometer Random Glucose 150 H Calcium 8.4 L Phosphorus 2.8 Magnesium 2.1 Total Bilirubin 0.2 AST 32 ALT 18 Alkaline Phosphatase 85 Total Protein 4.3 L Albumin 1.6 L Crossmatch IS Only ASSESSMENT/PLAN: Acute Respiratory Failure Cholecystitis Chronic constipation Bipolar d/o Pneumoperitoneum S/P Ex lap with sigmoid colectomy with colostomy New AFib IVF: D5 1/2 O2 as needed BD TX PRN Rate control VTE prophylaxis Pain control Enteral feeds when cleared by surgery ABX per ID Follow final cultures Restart Psych meds Floor Dr Walker
[2018-10-05] MEDS ORDERED: DEXTROSE 5%-WATER - 1,000 ML IV SCH (10:30)
[2018-10-05] MEDS ORDERED: DEXTROSE 5%-0.2% SALINE - 1,000 ML IV SCH (10:30)
--- NOTE | 2018-10-05 10:31 | PN ---
Progress Note, Physician Chief Complaint: The patient seen and examined in the ICU. In bed. Confused and hallucinating. Miguel catheter draining clear urine. - Current Medication List Current Medications: Active Medications Acetaminophen (Ofirmev Injection -) 1,000 mg IVPB Q6H PRN PRN Reason: PAIN LEVEL 1-5 Last Admin: 10/04/18 12:35 Dose: 1,000 mg Albuterol/Ipratropium (Duoneb -) 1 amp NEB RQID THOMAS Last Admin: 10/05/18 07:45 Dose: 1 amp Chlorhexidine Gluconate (Hibiclens For Decolonization -) 1 applic TP HS [facility] Last Admin: 10/04/18 21:15 Dose: 1 applic Diltiazem HCl (Cardizem Injection -) 10 mg IVPUSH Q4H PRN PRN Reason: TACHYCARDIA Meropenem 1 gm/ Dextrose 100 mls @ 200 mls/hr IVPB Q8H-IV [facility]OM[facility] Last Admin: 10/05/18 01:29 Dose: 200 mls/hr Famotidine/Sodium Chloride (Pepcid 20 Mg Premixed Ivpb -) 20 mg in 50 mls @ 100 mls/hr IVPB BID [facility]OM[facility] Last Admin: 10/05/18 09:36 Dose: 100 mls/hr Dextrose/Sodium Chloride (D5-1/4ns -) 1,000 mls @ 125 mls/hr IV ASDIR THOMAS Dextrose (D5w -) 1,000 mls @ 125 mls/hr IV .Q8H [facility] Levothyroxine Sodium (Synthroid -) 100 mcg PO DAILY@0700 [facility] Levothyroxine Sodium (Synthroid Injection -) 50 mcg IVPUSH DAILY [facility] Last Admin: 10/05/18 09:41 Dose: 50 mcg [place] Carbonate (Eskalith -) 300 mg PO DAILY [facility] Last Admin: 10/05/18 09:43 Dose: 300 mg Metoprolol Tartrate (Lopressor Injection -) 5 mg IVPUSH Q6H [facility] Last Admin: 10/05/18 06:24 Dose: 5 mg Mupirocin (Bactroban Ointment (For Decolonization) -) 1 applic NS BID [facility] Stop: 10/07/18 21:59 Last Admin: 10/05/18 09:36 Dose: 1 applic - Objective Vital Signs: Vital Signs Temperature 99.4 F 10/05/18 06:00 Pulse Rate 88 10/05/18 08:00 Respiratory Rate 19 10/05/18 08:00 Blood Pressure 163/92 10/05/18 08:00 O2 Sat by Pulse Oximetry (%) 96 10/05/18 08:56 Constitutional: Yes: Well Nourished, Anxious, Pallor HENT: Yes: Atraumatic Neck: Yes: Trachea Midline Cardiovascular: Yes: Regular Rate and Rhythm, S1, S2 Respiratory: Yes: Regular, CTA Bilaterally, Diminished Gastrointestinal: Yes: Normal Bowel Sounds Genitourinary: Yes: Miguel Present Psychiatric: Yes: Agitated Labs: CBC, BMP 10/05/18 05:30 10/05/18 05:30 INR, PTT INR 1.08 (0.83-1.09) 10/03/18 05:30 Problem List - Problems (1) MONIKA (acute kidney injury) Code(s): N17.9 - ACUTE KIDNEY FAILURE, UNSPECIFIED (2) Hypernatremia Code(s): E87.0 - HYPEROSMOLALITY AND HYPERNATREMIA (3) Bipolar disorder Code(s): F31.9 - BIPOLAR DISORDER, UNSPECIFIED Qualifiers: Active/Remission status: in remission of unspecified degree Qualified Code( s): F31.70 - Bipolar disorder, currently in remission, most recent episode unspecified (4) Hyperlipidemia Code(s): E78.5 - HYPERLIPIDEMIA, UNSPECIFIED Qualifiers: Hyperlipidemia type: unspecified Qualified Code(s): E78.5 - Hyperlipidemia , unspecified (5) Hypertension Code(s): I10 - ESSENTIAL (PRIMARY) HYPERTENSION Qualifiers: Hypertension type: essential hypertension Qualified Code(s): I10 - Essential (primary) hypertension Assessment/Plan 7 year old woman with hx of bipolar disorder, cholecystitis who presented with constipation and lower abd pain and found to have acute diverticulosis and new Afib with subsequent development of ileus with MONIKA. #MONIKA likely due to renal hypoprofusion/volume shifts in setting of abdominal infection/sepsis #Diverticulitis/Ileus s/p surgical intervention #New Afib #Hypernatremia . Worsening. Will need to modify the IV fluids. #hypoalbuminemia IV fluids as ordered...D5W alternating with D5W1/2NSS at 125 ml/hr. Will continue to monitor the renal and electrolyte functions. Back on [place]. Will monitor the levels closely. Continue ICU monitoring. Thank you. Pratima Moura MD
--- NOTE | 2018-10-05 11:06 | PN ---
Physical Exam: SUBJECTIVE: Patient seen and examined. Offers no complaints. hallucinating, confused. No acute events overnight. OBJECTIVE: Vital Signs Period Temp Pulse Resp BP Sys/Choi Pulse Ox Last 24 Hr 98 F-100.2 F 74-150 12- 107-163/64-109 96-97 GENERAL: a/o x 3, confused. HEENT: Dry mucus membranes. NECK: Supple. LUNGS: cta b/l. No wheezes noted. HEART: RRR. Normal S1, S2. No murmurs noted. ABDOMEN: Soft, nontender, nondistended Ostomy bag in place, Surgical abdominal dressing clean, dry, and intact. MUSCULOSKELETAL: No peripheral edema noted. EXTREMITIES: 2+ dorsalis pedis pulses b/l. NEUROLOGICAL: Respond to commands. Laboratory Results - last 24 hr 10/01/18 10/04/18 10/04/18 22:00 17:57 20:00 WBC RBC Hgb Hct MCV MCH MCHC RDW Plt Count MPV Absolute Neuts (auto) Neutrophils % Neutrophils % (Manual) Band Neutrophils % Lymphocytes % Lymphocytes % (Manual) Monocytes % Monocytes % (Manual) Eosinophils % Eosinophils % (Manual) Basophils % Basophils % (Manual) Myelocytes % (Man) Promyelocytes % (Man) Blast Cells % (Manual) Nucleated RBC % Metamyelocytes Hypochromia Platelet Estimate Polychromasia Poikilocytosis Anisocytosis Microcytosis Macrocytosis Ovalocytes Acanthocytes (Spur) Sodium 157 H Potassium 4.0 Chloride 125 H Carbon Dioxide 26 Anion Gap 6 L BUN 42 H Creatinine 1.8 H Creat Clearance w eGFR 27.90 POC Glucometer 127.55041 Random Glucose 107 H Calcium 8.4 L Phosphorus Magnesium Total Bilirubin AST ALT Alkaline Phosphatase Total Protein Albumin Crossmatch IS Only See Detail 10/05/18 10/05/18 05:30 05:30 WBC 17.7 H RBC 3.84 Hgb 10.0 L Hct 32.0 L MCV 83.2 MCH 26.1 MCHC 31.4 L RDW 13.9 Plt Count 243 MPV 8.5 Absolute Neuts (auto) 15.4 H Neutrophils % 86.9 H Neutrophils % (Manual) 79.8 Band Neutrophils % 0.0 Lymphocytes % 5.8 L D Lymphocytes % (Manual) 9.1 Monocytes % 6.5 Monocytes % (Manual) 5 Eosinophils % 0.4 D Eosinophils % (Manual) 0.0 Basophils % 0.4 Basophils % (Manual) 0.0 Myelocytes % (Man) 5 H D Promyelocytes % (Man) 1 D Blast Cells % (Manual) 0 D Nucleated RBC % 0 Metamyelocytes 0 D Hypochromia 0 Platelet Estimate Normal Polychromasia 0 Poikilocytosis 1+ Anisocytosis 1+ Microcytosis 1+ Macrocytosis 0 Ovalocytes 1+ Acanthocytes (Spur) 1+ Sodium 159 H Potassium 4.1 Chloride 127 H Carbon Dioxide 26 Anion Gap 6 L BUN 40 H Creatinine 1.7 H Creat Clearance w eGFR 29.80 POC Glucometer Random Glucose 150 H Calcium 8.4 L Phosphorus 2.8 Magnesium 2.1 Total Bilirubin 0.2 AST 32 ALT 18 Alkaline Phosphatase 85 Total Protein 4.3 L Albumin 1.6 L Crossmatch IS Only Active Medications Generic Name Dose Route Start Last Admin Trade Name Freq PRN Reason Stop Dose Admin Acetaminophen 1,000 mg 10/04/18 07:11 10/04/18 12:35 Ofirmev Injection - IVPB 1,000 mg Q6H PRN Administration PAIN LEVEL 1-5 Albuterol/Ipratropium 1 amp 10/02/18 20:00 10/05/18 07:45 Duoneb - NEB 1 amp RQID [facility] Administration Chlorhexidine Gluconate 1 applic 10/02/18 22:00 10/04/18 21:15 Hibiclens For Decolonization - TP 1 applic HS [facility] Administration Diltiazem HCl 10 mg 10/02/18 20:15 Cardizem Injection - IVPUSH Q4H PRN TACHYCARDIA Meropenem 1 gm/ Dextrose 100 mls @ 200 mls/hr 10/03/18 02:00 10/05/18 01:29 IVPB 200 mls/hr Q8H-IV [facility] Administration Famotidine/Sodium Chloride 20 mg in 50 mls @ 100 mls/hr 10/02/18 22:00 09:36 Pepcid 20 Mg Premixed Ivpb - IVPB 100 mls/hr BID [facility] Administration Dextrose/Sodium Chloride 1,000 mls @ 125 mls/hr 10/05/18 10:30 D5-1/4ns - IV ASDIR [facility] Dextrose 1,000 mls @ 125 mls/hr 10/05/18 10:30 D5w - IV .Q8H [facility] Levothyroxine Sodium 100 mcg 10/03/18 07:00 Synthroid - PO DAILY@0700 [facility] Levothyroxine Sodium 50 mcg 10/03/18 10:00 10/05/18 09:41 Synthroid Injection - IVPUSH 50 mcg DAILY [facility] Administration [place] Carbonate 300 mg 10/03/18 10:00 10/05/18 09:43 Eskalith - PO 300 mg DAILY [facility] Administration Metoprolol Tartrate 5 mg 10/04/18 18:00 10/05/18 06:24 Lopressor Injection - IVPUSH 5 mg Q6H [facility] Administration Mupirocin 1 applic 10/02/18 22:00 10/05/18 09:36 Bactroban Ointment (For Decolonization) - NS 10/07/18 21:59 1 applic BID [facility] Administration ASSESSMENT/PLAN: 67F w/ pmhx of cholecystitis, chronic constipation, bipolar d/o, pneumoperitoneum s/p ex lap, sigmoid colectomy with colostomy, POD #2 (10/02/18) admitted to the ICU for post-op care . Neurology -Pain controlled. -Morphine 2 Q6H, IV Tylenol for pain Pulmonary -Duonebs QID -Maintain sats >90% Cardiology #New onset A. fib -Stable, pt currently in NSR. -Metoprolol Tartrate 5 mg IVP PRN, Cardizem 10 mg IVP Q4H PRN -hold heparin drip until cleared by surg -Cardio following GI #Sigmoid diverticulitis s/p (Sidra's procedure) sigmoid colectomy w/ colostomy, POD #3 -Per surg, pt had multiple hard stools found in colon with purulent fluid found in pelvis; multiple bowel perforations at site of hard stools. Once pt has + bowel/colostomy fxn, may consider DC NG tube and and start PO meds. Reglan x1 dose -cont IV Abx -IVf -Pain control -NPO -Head of bed elevated, morales/NG tube, monitor vitals -PT, OOB Renal #Hypernatremia, likely 2/2 intravascular depletion/third spacing -increase free water -D5W ID #Sepsis 2/2 sigmoid diverticulitis with localized perforation -Afebrile. -Per ID, cont Meropenem 1gm -BCx neg -Peritoneal fluid gram stain neg; Cx pending -ID following Endocrinology #Hypothyroidism -Synthroid 50 mcg IVP QD -Can resume PO once passing BM and NG tube dc'd Psych #Bipolar disorder -Cont. [place] -Follow lithium level Prophylaxis GI- Pepcid DVT- SCD FEN -D5W -recheck lytes in AM, replete PRN -NPO lines -NG tube -morales -colostomy dispo -full code -transfer to Tele Visit type - Emergency Visit Emergency Visit: Yes ED Registration Date: 09/28/18 Care time: The patient presented to the Emergency Department on the above date and was hospitalized for further evaluation of their emergent condition. - New Patient This patient is new to me today: Yes Date on this admission: 10/07/18 - Critical Care Critical Care patient: Yes Total Critical Care Time (in minutes): 35 Critical Care Statement: The care of this patient involved high complexity decision making to prevent further life threatening deterioration of the patient 's condition and/or to evaluate & treat vital organ system(s) failure or risk of failure.
--- NOTE | 2018-10-05 11:30 | PN ---
Teaching Attending Note Name of Resident: Jeramie Hankins ATTENDING PHYSICIAN STATEMENT I saw and evaluated the patient. I reviewed the resident's note and discussed the case with the resident. I agree with the resident's findings and plan as documented with exceptions below. SUBJECTIVE: Patient seen and examined. Awake, upset, stating wants to "group text" and needs to "get out, that its urgent". Knows is in [place] but not oriented to time or place otherwise. Denies any pain or dyspnea. OBJECTIVE: Vital Signs Period Temp Pulse Resp BP Sys/Choi Pulse Ox Last 24 Hr 98 F-100.2 F 74-150 - 107-163/64-109 96-97 Intake & Output 10/02/18 10/03/18 10/04/18 10/05/18 23:59 23:59 23:59 23:59 Intake Total 6522 3590 1180 2200 Output Total 1900 1110 2070 1600 Balance 4622 2480 -890 600 Weight 165 lb 166 lb 8 oz 166 lb 10.711 oz General: lying in bed, mild lethargy/confusion, minimal use of accessory muscles of respiration Chest: poor effort, limited exam, no rales or wheezing appreciated however exam markedly limited Abdomen:Soft, unchanged distension, midline dressing with colostomy bag with no stool, hypoactive bowel sounds, no voluntary or involuntary guarding or rigidity Extremities: no edema CVS;S1S2 irregular Active Medications Acetaminophen (Ofirmev Injection -) 1,000 mg IVPB Q6H PRN PRN Reason: PAIN LEVEL 1-5 Last Admin: 10/04/18 12:35 Dose: 1,000 mg Albuterol/Ipratropium (Duoneb -) 1 amp NEB RQID [facility] Last Admin: 10/05/18 11:19 Dose: 1 amp Chlorhexidine Gluconate (Hibiclens For Decolonization -) 1 applic TP HS [facility] Last Admin: 10/04/18 21:15 Dose: 1 applic Diltiazem HCl (Cardizem Injection -) 10 mg IVPUSH Q4H PRN PRN Reason: TACHYCARDIA Meropenem 1 gm/ Dextrose 100 mls @ 200 mls/hr IVPB Q8H-IV [facility] Last Admin: 10/05/18 01:29 Dose: 200 mls/hr Famotidine/Sodium Chloride (Pepcid 20 Mg Premixed Ivpb -) 20 mg in 50 mls @ 100 mls/hr IVPB BID [facility] Last Admin: 10/05/18 09:36 Dose: 100 mls/hr Dextrose/Sodium Chloride (D5-1/4ns -) 1,000 mls @ 125 mls/hr IV ASDIR [facility] Last Admin: 10/05/18 11:01 Dose: 125 mls/hr Dextrose (D5w -) 1,000 mls @ 125 mls/hr IV .Q8H [facility] Levothyroxine Sodium (Synthroid -) 100 mcg PO DAILY@0700 [facility] Levothyroxine Sodium (Synthroid Injection -) 50 mcg IVPUSH DAILY [facility] Last Admin: 10/05/18 09:41 Dose: 50 mcg [place] Carbonate (Eskalith -) 300 mg PO DAILY [facility] Last Admin: 10/05/18 09:43 Dose: 300 mg Metoprolol Tartrate (Lopressor Injection -) 5 mg IVPUSH Q6H [facility] Last Admin: 10/05/18 06:24 Dose: 5 mg Mupirocin (Bactroban Ointment (For Decolonization) -) 1 applic NS BID [facility] Stop: 10/07/18 21:59 Last Admin: 10/05/18 09:36 Dose: 1 applic ASSESSMENT AND PLAN: 67yo F wtih PMH cholecystitis and bipolar presented with abdominal pain and constipation for [address] + 5.4x4.3x3.4cm pocket concerning for large inflammed diverticulum vs contained perforation, found with new onset Afib with RVR. -Sepsis due suspected sigmoid diverticulitis with localized perforation now with concerns for abscess/worsening edema s/p sigmoid resection with colostomy ( kassandra's procedure) 10/02 -Bowel obstruction+/- ileus likely from above -acute respiratory distress, suspect from progressive abdominal distension/ Large hiatal hernia/atelectasis+/- sepsis, less likley CHF/ARDS currently -Acute hypoxic respiratory failure s/p prolonged post op intubation -Leucocytosis -New onset Afib with RVR -Hypokalemia -MONIKA, cr rising, likely from hypovolumia/progressive sepsis and vinod-operative fluid shift -Hypernatremia, suspect from hypovolumia/third spacing -MONIKA, suspect from above +/- sepsis, ?ATN -Dilated CBD, asymptomatic -Bipolar disorder -Plan: POD 3 Extubated. CXR noted, WBC rising, CXR noted, Meropenem day 4, discuss with ID for possible HAP coverage ? vancomycin. Blood/sputum cx, repeat urinalysis. If WBC continues to rise, will discuss with surgery about re-imaging abdomen. Wound care per surgery. NPO with NG drainage. Resume po metoprolol/levothyroxine/ lithium when cleared by surgery. Renal input noted. Change to hypotonic saline. Free water, monitor Na levels. reverted back to NSR. Continue standing lopressor. Resume po metoprolol and AC when ok with surgery. DVTPPX heparin drip, to be resumed per surgery. COntinue ICU level of monitoring for today. Dispo critically ill with progressive clinical deterioration, s/p urgent surgery. PLan co-ordinated with ICU team, cardiology, ID, surgery and nursing. Total critical care time spent 40 min.
[2018-10-05] MEDS ORDERED: METOPROLOL TARTRATE 25 MG TABLET (FP) NGT SCH (11:45)
--- NOTE | 2018-10-05 12:28 | PN ---
Progress Note, Physician History of Present Illness: Pt seen and examined, events noted. She is currently alert and responsive but confused. Has some shortness of breath on exertion but no acute distress. Tmax 100.2F with upward wbc trend. - Current Medication List Current Medications: Active Medications Acetaminophen (Ofirmev Injection -) 1,000 mg IVPB Q6H PRN PRN Reason: PAIN LEVEL 1-5 Last Admin: 10/04/18 12:35 Dose: 1,000 mg Albuterol/Ipratropium (Duoneb -) 1 amp NEB RQID [facility] Last Admin: 10/05/18 11:19 Dose: 1 amp Chlorhexidine Gluconate (Hibiclens For Decolonization -) 1 applic TP HS [facility] Last Admin: 10/04/18 21:15 Dose: 1 applic Diltiazem HCl (Cardizem Injection -) 10 mg IVPUSH Q4H PRN PRN Reason: TACHYCARDIA Meropenem 1 gm/ Dextrose 100 mls @ 200 mls/hr IVPB Q8H-IV [facility] Last Admin: 10/05/18 01:29 Dose: 200 mls/hr Famotidine/Sodium Chloride (Pepcid 20 Mg Premixed Ivpb -) 20 mg in 50 mls @ 100 mls/hr IVPB BID [facility] Last Admin: 10/05/18 09:36 Dose: 100 mls/hr Dextrose/Sodium Chloride (D5-1/4ns -) 1,000 mls @ 125 mls/hr IV ASDIR [facility] Last Admin: 10/05/18 11:01 Dose: 125 mls/hr Dextrose (D5w -) 1,000 mls @ 125 mls/hr IV .Q8H [facility] Levothyroxine Sodium (Synthroid -) 100 mcg PO DAILY@0700 [facility] Levothyroxine Sodium (Synthroid Injection -) 50 mcg IVPUSH DAILY [facility] Last Admin: 10/05/18 09:41 Dose: 50 mcg [place] Carbonate (Eskalith -) 300 mg PO DAILY [facility] Last Admin: 10/05/18 09:43 Dose: 300 mg Metoprolol Tartrate (Lopressor Injection -) 5 mg IVPUSH Q6H-IV [facility] Last Admin: 10/05/18 12:20 Dose: 5 mg Mupirocin (Bactroban Ointment (For Decolonization) -) 1 applic NS BID [facility] Stop: 10/07/18 21:59 Last Admin: 10/05/18 09:36 Dose: 1 applic - Objective Vital Signs: Vital Signs Temperature 98.9 F 10/05/18 10:00 Pulse Rate 99 H 10/05/18 12:20 Respiratory Rate 20 10/05/18 10:00 Blood Pressure 160/90 10/05/18 12:20 O2 Sat by Pulse Oximetry (%) 96 10/05/18 08:56 Constitutional: Yes: No Distress, Calm Eyes: Yes: Conjunctiva Clear HENT: Yes: Atraumatic, Other (+NGT) Neck: Yes: Supple Cardiovascular: Yes: Tachycardia Respiratory: Yes: Regular Gastrointestinal: Yes: Normal Bowel Sounds, Soft, Other (colostomy) Genitourinary: Yes: Miguel Present Extremities: Yes: Other (b/l SCDs) Wound/Incision: Yes: Dressing Dry and Intact Neurological: Yes: Confusion Labs: CBC, BMP 10/05/18 05:30 10/05/18 05:30 INR, PTT INR 1.08 (0.83-1.09) 10/03/18 05:30 Microbiology 10/02/18 15:40 Peritoneal Fluid Gram Stain - Final 10/02/18 15:40 Peritoneal Fluid Body Fluid Culture - Preliminary NO AEROBIC GROWTH, 24 HRS 10/02/18 15:40 Peritoneal Fluid Gram Stain - Final 10/02/18 15:40 Peritoneal Fluid Body Fluid Culture - Preliminary NO AEROBIC GROWTH, 24 HRS 09/28/18 15:15 Blood - Peripheral Venous Blood Culture - Final NO GROWTH AFTER 5 DAYS INCUBATION 09/28/18 14:52 Blood - Peripheral Venous Blood Culture - Final NO GROWTH AFTER 5 DAYS INCUBATION - ....Imaging Chest X-ray: Report Reviewed (progressing congestion/infiltrates +pleural effusion) Problem List - Problems (1) MONIKA (acute kidney injury) Code(s): N17.9 - ACUTE KIDNEY FAILURE, UNSPECIFIED (2) Bipolar disorder Code(s): F31.9 - BIPOLAR DISORDER, UNSPECIFIED Qualifiers: Active/Remission status: in remission of unspecified degree Qualified Code( s): F31.70 - Bipolar disorder, currently in remission, most recent episode unspecified (3) Diverticulitis of large intestine with perforation without abscess or bleeding Code(s): K57.20 - DVTRCLI OF LG INT W PERFORATION AND ABSCESS W/O BLEEDING (4) History of open sigmoidectomy Code(s): Z98.890 - OTHER SPECIFIED POSTPROCEDURAL STATES; Z90.49 - ACQUIRED ABSENCE OF OTHER SPECIFIED PARTS OF DIGESTIVE TRACT (5) Hyperlipidemia Code(s): E78.5 - HYPERLIPIDEMIA, UNSPECIFIED Qualifiers: Hyperlipidemia type: unspecified Qualified Code(s): E78.5 - Hyperlipidemia , unspecified (6) Hypertension Code(s): I10 - ESSENTIAL (PRIMARY) HYPERTENSION Qualifiers: Hypertension type: essential hypertension Qualified Code(s): I10 - Essential (primary) hypertension (7) Hypothyroidism Code(s): E03.9 - HYPOTHYROIDISM, UNSPECIFIED Qualifiers: Hypothyroidism type: unspecified Qualified Code(s): E03.9 - Hypothyroidism , unspecified (8) Paroxysmal atrial fibrillation Code(s): I48.0 - PAROXYSMAL ATRIAL FIBRILLATION (9) Perforation of sigmoid colon Code(s): K63.1 - PERFORATION OF INTESTINE (NONTRAUMATIC) Assessment/Plan 67yo female presented with abdominal pain and constipation Sepsis Sigmoid diverticulitis w/ perforation s/p resection/colostomy Bowel obstruction Acute Respiratory failure s/p intubation - extubated Worsening Leukocytosis/Fever AFIB MONIKA Bipolar disorder -- rising wbc, febrile last night -- CXR results noted with progressive congestion/infiltrates -- repeat Blood cultures -- f/u peritoneal fluid cultures -- continue Meropenem, add Vancomycin IV with close renal function monitoring -- monitor wbc trend/temperatures
[2018-10-05 12:41] LABS: URINE APPEARANCE CLEAR; URINE BILIRUBIN NEGATIVE (<2.0 mg/dL); URINE COLOR STRAW; URINE GLUCOSE (UA) NEGATIVE (NEGATIVE); URINE KETONE NEGATIVE (NEGATIVE); URINE LEUK ESTERASE NEGATIVE (NEGATIVE); URINE NITRITE NEGATIVE (NEGATIVE); URINE PROTEIN NEGATIVE (NEGATIVE); URINE UROBILINOGEN NEGATIVE mg/dL (0.2-1.0)
[2018-10-05] MEDS ORDERED: VANCOMYCIN 1,000 MG in DEXTROSE 5%-WATER - 250 ML IVPB SCH (13:00)
[2018-10-05] MEDS: VANCOMYCIN 1 GM in D5W (PRE-DOCKED) 1,000 MG/250 ML IVPB SCH (13:13)
--- NOTE | 2018-10-05 14:06 | PN ---
Progress Note, Physician History of Present Illness: s/p Sidra's procedure for OR findings of stercoral perforation with peritonitis stable on NC O2 on prn pain meds pt seen and examined in bed, just arrived she is awake and alert, tolerating water by mouth, no nausea, still thirsty she states she is feeling much better, pain is better NG is in place, clamped since last night Miguel with very light/clear yellow urine - 1600ml/8 hrs overnight, 1000ml since 6am - Current Medication List Current Medications: Active Medications Acetaminophen (Ofirmev Injection -) 1,000 mg IVPB Q6H PRN PRN Reason: PAIN LEVEL 1-5 Last Admin: 10/04/18 12:35 Dose: 1,000 mg Albuterol/Ipratropium (Duoneb -) 1 amp NEB RQID [facility] Last Admin: 10/05/18 11:19 Dose: 1 amp Chlorhexidine Gluconate (Hibiclens For Decolonization -) 1 applic TP HS [facility] Last Admin: 10/04/18 21:15 Dose: 1 applic Diltiazem HCl (Cardizem Injection -) 10 mg IVPUSH Q4H PRN PRN Reason: TACHYCARDIA Meropenem 1 gm/ Dextrose 100 mls @ 200 mls/hr IVPB Q8H-IV [facility] Last Admin: 10/05/18 13:14 Dose: 200 mls/hr Famotidine/Sodium Chloride (Pepcid 20 Mg Premixed Ivpb -) 20 mg in 50 mls @ 100 mls/hr IVPB BID [facility] Last Admin: 10/05/18 09:36 Dose: 100 mls/hr Dextrose/Sodium Chloride (D5-1/4ns -) 1,000 mls @ 125 mls/hr IV ASDIR [facility] Last Admin: 10/05/18 11:01 Dose: 125 mls/hr Dextrose (D5w -) 1,000 mls @ 125 mls/hr IV .Q8H [facility] Levothyroxine Sodium (Synthroid -) 100 mcg PO DAILY@0700 [facility] Levothyroxine Sodium (Synthroid Injection -) 50 mcg IVPUSH DAILY [facility] Last Admin: 10/05/18 09:41 Dose: 50 mcg [place] Carbonate (Eskalith -) 300 mg PO DAILY [facility] Last Admin: 10/05/18 09:43 Dose: 300 mg Metoprolol Tartrate (Lopressor Injection -) 5 mg IVPUSH Q6H-IV [facility] Last Admin: 10/05/18 12:20 Dose: 5 mg Mupirocin (Bactroban Ointment (For Decolonization) -) 1 applic NS BID [facility] Stop: 10/07/18 21:59 Last Admin: 10/05/18 09:36 Dose: 1 applic Vancomycin HCl (Vancomycin (Pre-Docked)) 1,000 mg IVPB Q24H [facility] Last Admin: 10/05/18 13:13 Dose: 1,000 mg - Objective Vital Signs: Vital Signs Temperature 99.4 F 10/05/18 12:00 Pulse Rate 99 H 10/05/18 12:20 Respiratory Rate 20 10/05/18 10:00 Blood Pressure 160/90 10/05/18 12:20 O2 Sat by Pulse Oximetry (%) 96 10/05/18 08:56 Constitutional: Yes: Well Nourished, No Distress, Calm Eyes: Yes: Conjunctiva Clear, EOM Intact HENT: Yes: Atraumatic, Normocephalic, Other (NG - removed at bedside) Respiratory: Yes: On Nasal O2. No: SOB Gastrointestinal: Yes: Soft, Tenderness (incisional), Other (colostomy p/p/ productive of scant fluid, very small piece of hard stool, +gas). No: Distention Genitourinary: Yes: Miguel Present. No: Hematuria Extremities: No: Cool, Cyanosis Edema: Yes (generalized ) Integumentary: Yes: Incision (midline dressed). No: Jaundice, Rash Wound/Incision: Yes: [place] Intact (between open areas), Dressing Dry and Intact, Dressing Removed (and packing changed), Draining (serous/serosang on gauze), Unapproximated (between anita x 4 - clean, not yet granulating) Neurological: Yes: Alert, Confusion (somewhat) Labs: CBC, BMP 10/05/18 05:30 10/05/18 05:30 Na Cl still up - fluids changed to hypotonic by renal BUN, Cr still up but down slightly wbc up a bit - ....Imaging Chest X-ray: Report Reviewed, Image Reviewed X-ray: Report Reviewed, Image Reviewed (AXR personally reviewed - contrast all the way to ostomy, few filling defects visible representing stool balls not yet out, hiatal hernia with less dilated stomach noted) Problem List - Problems (1) Perforation of sigmoid colon Assessment/Plan: POD3 s/p sigmoidectomy with colostomy (Sidra's procedure) for stercoral perforation of sigmoid with peritonitis in ICU on NC O2 f/u cultures and pathology continue antibiotics per ID small piece of stool out ostomy NG removed, give water freely by mouth, would not feed quite yet po meds ok once more stool output, will be ok to resume feeding pain meds - prn - would use NONNARCOTICS FIRST LINE consider changing IV tylenol to STANDING PT seeing, pt walked earlier midline incision with several open wounds - packing changed, wounds clean will try convex appliance for ostomy arrived after exam - spoke with him, answered questions Code(s): K63.1 - PERFORATION OF INTESTINE (NONTRAUMATIC) (2) Stercoral ulcer of large intestine Code(s): K63.3 - ULCER OF INTESTINE (3) Stercolith Code(s): K56.41 - FECAL IMPACTION (4) Constipation Assessment/Plan: may try senna po or mag citrate Code(s): K59.00 - CONSTIPATION, UNSPECIFIED Qualifiers: Constipation type: chronic idiopathic constipation Qualified Code(s): K59.04 - Chronic idiopathic constipation (5) Acute hypernatremia Assessment/Plan: hypotonic fluids starting to diurese more spontaneously free water po monitor closely renal following Code(s): E87.0 - HYPEROSMOLALITY AND HYPERNATREMIA (6) Paroxysmal atrial fibrillation Assessment/Plan: echo results noted - mild diastolic dysfunction but normal EF cardiology following heparin drip - on hold perioperatively keep lytes normal pain control able to resume po Code(s): I48.0 - PAROXYSMAL ATRIAL FIBRILLATION (7) Bipolar disorder Assessment/Plan: lithium resumed po Code(s): F31.9 - BIPOLAR DISORDER, UNSPECIFIED Qualifiers: Active/Remission status: in remission of unspecified degree Qualified Code( s): F31.70 - Bipolar disorder, currently in remission, most recent episode unspecified (8) Hypertension Assessment/Plan: ok to resume po meds Code(s): I10 - ESSENTIAL (PRIMARY) HYPERTENSION Qualifiers: Hypertension type: essential hypertension Qualified Code(s): I10 - Essential (primary) hypertension (9) Hyperlipidemia Code(s): E78.5 - HYPERLIPIDEMIA, UNSPECIFIED Qualifiers: Hyperlipidemia type: unspecified Qualified Code(s): E78.5 - Hyperlipidemia , unspecified (10) Hypothyroidism Assessment/Plan: ok to resume synthroid po vs iv per primary team Code(s): E03.9 - HYPOTHYROIDISM, UNSPECIFIED Qualifiers: Hypothyroidism type: unspecified Qualified Code(s): E03.9 - Hypothyroidism , unspecified (11) Hiatal hernia without gangrene or obstruction Code(s): K44.9 - DIAPHRAGMATIC HERNIA WITHOUT OBSTRUCTION OR GANGRENE
[2018-10-05] MEDS ORDERED: PT OWN MED DRAWER 7, Y5N ONE (17:01)
[2018-10-05 18:41] LABS: BLOOD UREA NITROGEN 36 mg/dL (7-18); CALCIUM 8.5 mg/dL (8.5-10.1); GLUCOSE,RANDOM 110 mg/dL (74-106)
[2018-10-05 18:42] LABS: ANION GAP 8 MMOL/L (8-16); CHLORIDE 126 mmol/L (98-107); CO2 24 mmol/L (21-32); CREATININE 1.6 mg/dL (0.55-1.3); POTASSIUM 3.9 mmol/L (3.5-5.1); SODIUM 158 mmol/L (136-145)
[2018-10-06] MEDS: MEROPENEM 1 GM in DEXTROSE 5%-WATER 100 ML IVPB SCH ×3 (01:24→17:26)
[2018-10-06] MEDS: CHLORHEXIDINE GLUCONATE 4% CLEANSER FOR DECOLONIZATION TP SCH ×2 (01:24→21:39)
[2018-10-06] MEDS: METOPROLOL TARTRATE 5 MG/5 ML VIAL IVPUSH SCH ×3 (05:19→14:47)
[2018-10-06 06:05] LABS: BASO % 0.2 % (0-2.0); EOS % 0.7 % (0-4.5); HEMATOCRIT 33.9 % (32.4-45.2); HEMOGLOBIN 10.5 GM/dL (10.7-15.3); LYMPH % 5.2 % (8-40); MCH 25.8 pg (25.7-33.7); MCHC 30.9 g/dl (32.0-36.0); MEAN CELL VOLUME 83.6 fl (80-96); MEAN PLT VOLUME 8.5 fl (7.5-11.1); MONO % 4.4 % (3.8-10.2); NEUT % 89.5 % (42.8-82.8); PLATELET COUNT 289 K/MM3 (134-434); RBC 4.06 M/mm3 (3.60-5.2); RDW 14.3 % (11.6-15.6); WHITE BLOOD COUNT 22.1 K/mm3 (4.0-10.0)
[2018-10-06] MEDS: ALBUTEROL SO4 2.5/IPRATROPIUM 0.5 INH SOL 3 ML VIAL.NEB. NEB SCH ×4 (08:01→20:11)
--- NOTE | 2018-10-06 08:23 | PN ---
Progress Note (short form) - Note Progress Note: Chief Complaint: Events noted, notes reviewed, agitated this AM, still exhibiting paranoid behavior, denies any chest pain or dyspnea, currently in sinus rhythm History of Present Illness: Seen and examined in the ICU. Events noted, notes reviewed, agitated this AM, still exhibiting paranoid behavior, denies any chest pain or dyspnea, currently in sinus rhythm Echocardiography dated 09/30/2018 revealed normal LV size and function with LVEF 60-65%, mildly impaired LV compliance, normal RV function, mild TR and trace-mild MR - Current Medication List Current Medications Acetaminophen (Ofirmev Injection -) 1,000 mg IVPB Q6H PRN PRN Reason: PAIN LEVEL 1-5 Last Admin: 10/04/18 12:35 Dose: 1,000 mg Albuterol/Ipratropium (Duoneb -) [address] [facility] Last Admin: 10/06/18 08:01 Dose: 1 amp Chlorhexidine Gluconate (Hibiclens For Decolonization -) [address] [facility] Last Admin: 10/06/18 01:24 Dose: 1 applic Diltiazem HCl (Cardizem Injection -) 10 mg IVPUSH Q4H PRN PRN Reason: TACHYCARDIA Meropenem 1 gm/ Dextrose 100 mls @ 200 mls/hr IVPB Q8H-IV [facility] Last Admin: 10/06/18 01:24 Dose: 200 mls/hr Famotidine/Sodium Chloride (Pepcid 20 Mg Premixed Ivpb -) 20 mg in 50 mls @ 100 mls/hr IVPB BID [facility] Last Admin: 10/05/18 21:32 Dose: 100 mls/hr Dextrose/Sodium Chloride (D5-1/4ns -) 1,000 mls @ 125 mls/hr IV ASDIR [facility] Last Admin: 10/05/18 11:01 Dose: 125 mls/hr Dextrose (D5w -) 1,000 mls @ 125 mls/hr IV .Q8H [facility] Last Admin: 10/06/18 01:31 Dose: 125 mls/hr Levothyroxine Sodium (Synthroid -) 100 mcg PO DAILY@0700 [facility] Levothyroxine Sodium (Synthroid Injection -) [address] [facility] Last Admin: 10/05/18 09:41 Dose: 50 mcg [place] Carbonate (Eskalith -) [address] [facility] Last Admin: 10/05/18 09:43 Dose: 300 mg Metoprolol Tartrate (Lopressor Injection -) 5 mg IVPUSH Q6H-IV [facility] Last Admin: 10/06/18 05:19 Dose: 5 mg Mupirocin (Bactroban Ointment (For Decolonization) -) [address] [facility] Stop: 10/07/18 21:59 Last Admin: 10/05/18 22:00 Dose: 1 applic Vancomycin HCl (Vancomycin (Pre-Docked)) 1,[address] [facility] Last Admin: 10/05/18 13:13 Dose: 1,000 mg - Review of Systems Cardiovascular: As noted above Respiratory: denies: Cough or Sputum Production Gastrointestinal: denies: Nausea, Vomiting, Diarrhea, Constipation or Abdominal Pain Musculoskeletal: No symptoms reported Neurological: No symptoms reported - Objective Vital Signs: Last Vital Signs Temp Pulse Resp BP Pulse Ox 98.4 F 91 H 24 H 163/117 H 96 10/06/18 02:00 10/06/18 06:00 10/06/18 06:00 10/06/18 06:00 10/05/18 20:50 Intake & Output 10/03/18 10/04/18 10/05/18 10/06/18 23:59 23:59 23:59 23:59 Intake Total 3590 1180 6865 900 Output Total 1110 2070 4650 2000 Balance 2480 -890 2215 -1100 Weight 165 lb 166 lb 8 oz 166 lb 10.711 oz 163 lb 9 oz Neck: Supple Negative JVD Cardiovascular: S1 S2 Regular Rate and Rhythm Respiratory: Diminished breath sounds Gastrointestinal: Soft Benign hypoactive Bowel Sounds Ext: Negative Edema Labs: CBC, BMP 10/06/18 05:30 Hepatic Panel Total Bilirubin 0.2 mg/dL (0.2-1) 10/05/18 05:30 Direct Bilirubin 0.1 mg/dL (0.0-0.2) 10/02/18 05:30 AST 32 U/L (15-37) 10/05/18 05:30 ALT 18 U/L (13-61) 10/05/18 05:30 Alkaline Phosphatase 85 U/L (45-117) 10/05/18 05:30 Albumin 1.6 g/dl (3.4-5.0) L 10/05/18 05:30 INR, PTT INR 1.08 (0.83-1.09) 10/03/18 05:30 Assessment/Plan ASSESSMENT: 1. POD#4 sigmoidectomy with colostomy (Sidra's procedure) for sigmoid stercoral perforation with peritonitis 2. Paroxysmal atrial fibrillation [id number] score of 3 currently on no A/C 3. Diastolic LV dysfunction with clinical class 0 NYHA classification LV failure 4. Hypertension 5. Hypothyroidism 6. Bipolar disorder, paranoid behavior 7. Acute on CKD 8. Hypernatremia PLAN: 1. Resume A/C once post-op hemostasis is achieved, to be reviewed with surgery 2. Continue IV Lopressor for rate control and initiate PO therapy once Po intake is resumed 3. Continue IV Cardizem for rate control 4. Antibiotic as per the primary team 5. IV hydration D5/0.5 NS with close monitoring of renal function and electrolytes, correction of Hypernatremia, await BMP from this AM Rene Yanes MD
[2018-10-06] MEDS ORDERED: PT OWN MED DRAWER 7, Y5N ONE ×2 (09:14→17:20)
[2018-10-06 09:19] LABS: ALBUMIN 1.6 g/dl (3.4-5.0); ALK PHOS 112 U/L (45-117); ANION GAP 6 MMOL/L (8-16); BILIRUBIN,TOTAL 0.4 mg/dL (0.2-1); BLOOD UREA NITROGEN 32 mg/dL (7-18); CALCIUM 8.3 mg/dL (8.5-10.1); CHLORIDE 129 mmol/L (98-107); CO2 27 mmol/L (21-32); CREATININE 1.6 mg/dL (0.55-1.3); GLUCOSE,RANDOM 101 mg/dL (74-106); PHOSPHOROUS 2.5 mg/dL (2.5-4.9); POTASSIUM 3.7 mmol/L (3.5-5.1); SGOT/AST 52 U/L (15-37); SGPT/ALT 29 U/L (13-61); TOT PROT 4.6 g/dl (6.4-8.2)
[2018-10-06] MEDS: FAMOTIDINE 20 MG/50 ML IVPB 20 MG/50 ML MG IVPB SCH (09:22)
[2018-10-06] MEDS: MUPIROCIN 2% TOPICAL OINTMENT FOR DECOLONIZATION NS SCH ×2 (09:23→23:46)
[2018-10-06] MEDS: LITHIUM CARBONATE 300 MG CAPSULE (FP) PO SCH (09:23)
[2018-10-06] MEDS: LEVOTHYROXINE SODIUM 100 MCG VIAL IVPUSH SCH (09:23)
[2018-10-06 09:27] LABS: SODIUM 162 mmol/L (136-145)
--- NOTE | 2018-10-06 10:07 | PN ---
Progress Note, Physician Chief Complaint: The patient seen and examined in the ICU. In bed. Confused and hallucinating. Miguel catheter draining large amounts of clear urine. History of Present Illness: 67 year old woman with hx of bipolar disorder, cholecystitis who presented with constipation and lower abd pain and found to have acute diverticulosis and new Afib with subsequent development of ileus with MONIKA. s/p surgical intervention - Current Medication List Current Medications: Active Medications Acetaminophen (Ofirmev Injection -) 1,000 mg IVPB Q6H PRN PRN Reason: PAIN LEVEL 1-5 Last Admin: 10/04/18 12:35 Dose: 1,000 mg Albuterol/Ipratropium (Duoneb -) 1 amp NEB RQID [facility] Last Admin: 10/06/18 08:01 Dose: 1 amp Chlorhexidine Gluconate (Hibiclens For Decolonization -) 1 applic TP HS [facility] Last Admin: 10/06/18 01:24 Dose: 1 applic Diltiazem HCl (Cardizem Injection -) 10 mg IVPUSH Q4H PRN PRN Reason: TACHYCARDIA Meropenem 1 gm/ Dextrose 100 mls @ 200 mls/hr IVPB Q8H-IV [facility] Last Admin: 10/06/18 09:16 Dose: 200 mls/hr Famotidine/Sodium Chloride (Pepcid 20 Mg Premixed Ivpb -) 20 mg in 50 mls @ 100 mls/hr IVPB BID [facility] Last Admin: 10/06/18 09:22 Dose: 100 mls/hr Dextrose (D5w -) 1,000 mls @ 150 mls/hr IV .Q8H [facility] Levothyroxine Sodium (Synthroid -) 100 mcg PO DAILY@0700 [facility] Levothyroxine Sodium (Synthroid Injection -) 50 mcg IVPUSH DAILY [facility] Last Admin: 10/06/18 09:23 Dose: 50 mcg [place] Carbonate (Eskalith -) 300 mg PO DAILY [facility] Last Admin: 10/06/18 09:23 Dose: 300 mg Metoprolol Tartrate (Lopressor Injection -) 5 mg IVPUSH Q6H-IV [facility] Last Admin: 10/06/18 09:16 Dose: 5 mg Mupirocin (Bactroban Ointment (For Decolonization) -) 1 applic NS BID [facility] Stop: 10/07/18 21:59 Last Admin: 10/06/18 09:23 Dose: 1 applic Vancomycin HCl (Vancomycin (Pre-Docked)) 1,000 mg IVPB Q24H [facility] Last Admin: 10/05/18 13:13 Dose: 1,000 mg - Objective Vital Signs: Vital Signs Temperature 98.4 F 10/06/18 02:00 Pulse Rate 95 H 10/06/18 09:16 Respiratory Rate 24 H 10/06/18 06:00 Blood Pressure 149/95 10/06/18 09:16 O2 Sat by Pulse Oximetry (%) 96 10/05/18 20:50 Constitutional: Yes: Well Nourished, Anxious Eyes: Yes: Conjunctiva Clear HENT: Yes: Atraumatic Neck: Yes: Trachea Midline Cardiovascular: Yes: Regular Rate and Rhythm, S1, S2 Respiratory: Yes: CTA Bilaterally, Diminished Gastrointestinal: Yes: Normal Bowel Sounds, Soft Genitourinary: Yes: Miguel Present, Polyuria Edema: No Labs: CBC, BMP 10/06/18 05:30 10/06/18 05:30 INR, PTT INR 1.08 (0.83-1.09) 10/03/18 05:30 Problem List - Problems (1) MONIKA (acute kidney injury) Code(s): N17.9 - ACUTE KIDNEY FAILURE, UNSPECIFIED (2) Hypernatremia Code(s): E87.0 - HYPEROSMOLALITY AND HYPERNATREMIA (3) Bipolar disorder Code(s): F31.9 - BIPOLAR DISORDER, UNSPECIFIED Qualifiers: Active/Remission status: in remission of unspecified degree Qualified Code( s): F31.70 - Bipolar disorder, currently in remission, most recent episode unspecified (4) Hyperlipidemia Code(s): E78.5 - HYPERLIPIDEMIA, UNSPECIFIED Qualifiers: Hyperlipidemia type: unspecified Qualified Code(s): E78.5 - Hyperlipidemia , unspecified (5) Hypertension Code(s): I10 - ESSENTIAL (PRIMARY) HYPERTENSION Qualifiers: Hypertension type: essential hypertension Qualified Code(s): I10 - Essential (primary) hypertension Assessment/Plan 67 year old woman with hx of bipolar disorder, cholecystitis who presented with constipation and lower abd pain and found to have acute diverticulosis and new Afib with subsequent development of ileus with MONIKA. #MONIKA likely due to renal hypoprofusion/volume shifts in setting of abdominal infection/sepsis. Some degree of Prerenal failue co-exists #Diverticulitis/Ileus s/p surgical intervention #New Afib #Hypernatremia . Worsening. Will need to modify the IV fluids. IV fluids as ordered...D5W at 150 ml/hr. additionally, encourage PO fluids. Will continue to monitor the renal and electrolyte functions. Back on Sachse. Will monitor the levels closely. Continue ICU monitoring. Thank you. Pratima Moura MD
--- NOTE | 2018-10-06 10:39 | PN ---
Teaching Attending Note Name of Resident: Padmini Wells ATTENDING PHYSICIAN STATEMENT I saw and evaluated the patient. I reviewed the resident's note and discussed the case with the resident. I agree with the resident's findings and plan as documented. SUBJECTIVE: Patient seen and examined in the ICU. Remains extubated. Awake and alert. Denies CP or SOB. No pressors. Noted electrolyte disturbance. Being seen by Renal. Intake & Output 10/03/18 10/04/18 10/05/18 10/06/18 23:59 23:59 23:59 23:59 Intake Total 3590 1180 6865 900 Output Total 1110 2070 4650 2000 Balance 2480 -890 2215 -1100 Weight 165 lb 166 lb 8 oz 166 lb 10.711 oz 163 lb 9 oz Last Vital Signs Temp Pulse Resp BP Pulse Ox 98.4 F 95 H 24 H 149/95 96 10/06/18 02:00 10/06/18 09:16 10/06/18 06:00 10/06/18 09:16 10/05/18 20:50 Active Medications Acetaminophen (Ofirmev Injection -) 1,000 mg IVPB Q6H PRN PRN Reason: PAIN LEVEL 1-5 Last Admin: 10/04/18 12:35 Dose: 1,000 mg Albuterol/Ipratropium (Duoneb -) 1 amp NEB RQID [facility] Last Admin: 10/06/18 08:01 Dose: 1 amp Chlorhexidine Gluconate (Hibiclens For Decolonization -) 1 applic TP HS [facility] Last Admin: 10/06/18 01:24 Dose: 1 applic Diltiazem HCl (Cardizem Injection -) 10 mg IVPUSH Q4H PRN PRN Reason: TACHYCARDIA Meropenem 1 gm/ Dextrose 100 mls @ 200 mls/hr IVPB Q8H-IV [facility] Last Admin: 10/06/18 09:16 Dose: 200 mls/hr Famotidine/Sodium Chloride (Pepcid 20 Mg Premixed Ivpb -) 20 mg in 50 mls @ 100 mls/hr IVPB BID [facility] Last Admin: 10/06/18 09:22 Dose: 100 mls/hr Dextrose (D5w -) 1,000 mls @ 150 mls/hr IV .Q8H [facility] Levothyroxine Sodium (Synthroid -) 100 mcg PO DAILY@0700 [facility] Levothyroxine Sodium (Synthroid Injection -) 50 mcg IVPUSH DAILY [facility] Last Admin: 10/06/18 09:23 Dose: 50 mcg [place] Carbonate (Eskalith -) 300 mg PO DAILY [facility] Last Admin: 10/06/18 09:23 Dose: 300 mg Metoprolol Tartrate (Lopressor Injection -) 5 mg IVPUSH Q6H-IV [facility] Last Admin: 10/06/18 09:16 Dose: 5 mg Mupirocin (Bactroban Ointment (For Decolonization) -) 1 applic NS BID [facility] Stop: 10/07/18 21:59 Last Admin: 10/06/18 09:23 Dose: 1 applic Vancomycin HCl (Vancomycin (Pre-Docked)) 1,000 mg IVPB Q24H [facility] Last Admin: 10/05/18 13:13 Dose: 1,000 mg GENERAL: extubated, awake and alert HEENT: AT/NC. Dry mucus membranes. NECK: Supple. LUNGS: few rhonchi. No wheezes HEART: RRR. Normal S1, S2. No murmurs noted. ABDOMEN: Soft, NT/ND. Ostomy bag in place. Surgical abdominal dressing c/d/i. MUSCULOSKELETAL: No peripheral edema noted. EXTREMITIES: 2+ dorsalis pedis pulses b/l. NEUROLOGICAL: Non-focal. Laboratory Results - last 24 hr 10/05/18 10/05/18 10/05/18 06:34 12:00 12:50 WBC RBC Hgb Hct MCV MCH MCHC RDW Plt Count MPV Absolute Neuts (auto) Neutrophils % Lymphocytes % Monocytes % Eosinophils % Basophils % Nucleated RBC % Sodium Potassium Chloride Carbon Dioxide Anion Gap BUN Creatinine Creat Clearance w eGFR POC Glucometer 139.46418 122.11625 Random Glucose Calcium Phosphorus Magnesium Total Bilirubin AST ALT Alkaline Phosphatase Total Protein Albumin Urine Color Straw Urine Appearance Clear Urine pH 6.0 D Ur Specific [place] 1.005 L Urine Protein Negative Urine Glucose (UA) Negative Urine Ketones Negative Urine Blood Negative Urine Nitrite Negative Urine Bilirubin Negative Urine Urobilinogen Negative Ur Leukocyte Esterase Negative 10/05/18 10/05/18 10/05/18 17:44 18:07 23:38 WBC RBC Hgb Hct MCV MCH MCHC RDW Plt Count MPV Absolute Neuts (auto) Neutrophils % Lymphocytes % Monocytes % Eosinophils % Basophils % Nucleated RBC % Sodium 158 H Potassium 3.9 Chloride 126 H Carbon Dioxide 24 Anion Gap 8 BUN 36 H Creatinine 1.6 H Creat Clearance w eGFR 31.96 POC Glucometer 127.66741 129.81917 Random Glucose 110 H Calcium 8.5 Phosphorus Magnesium Total Bilirubin AST ALT Alkaline Phosphatase Total Protein Albumin Urine Color Urine Appearance Urine pH Ur Specific [place] Urine Protein Urine Glucose (UA) Urine Ketones Urine Blood Urine Nitrite Urine Bilirubin Urine Urobilinogen Ur Leukocyte Esterase 10/06/18 10/06/18 05:30 05:30 WBC 22.1 H RBC 4.06 Hgb 10.5 L Hct 33.9 MCV 83.6 MCH 25.8 MCHC 30.9 L RDW 14.3 Plt Count 289 MPV 8.5 Absolute Neuts (auto) 19.7 H Neutrophils % 89.5 H Lymphocytes % 5.2 L Monocytes % 4.4 Eosinophils % 0.7 Basophils % 0.2 Nucleated RBC % 0 Sodium 162 H* Potassium 3.7 Chloride 129 H Carbon Dioxide 27 Anion Gap 6 L BUN 32 H Creatinine 1.6 H Creat Clearance w eGFR 31.96 POC Glucometer Random Glucose 101 Calcium 8.3 L Phosphorus 2.5 Magnesium 2.0 Total Bilirubin 0.4 AST 52 H ALT 29 Alkaline Phosphatase 112 Total Protein 4.6 L Albumin 1.6 L Urine Color Urine Appearance Urine pH Ur Specific [place] Urine Protein Urine Glucose (UA) Urine Ketones Urine Blood Urine Nitrite Urine Bilirubin Urine Urobilinogen Ur Leukocyte Esterase ASSESSMENT/PLAN: Acute Respiratory Failure Cholecystitis Chronic constipation Bipolar d/o Pneumoperitoneum S/P Ex lap with sigmoid colectomy with colostomy New AFib IVF per Renal O2 as needed BD TX PRN Rate control VTE prophylaxis Pain control PO as tolerated ABX per ID Psych meds Floor Dr Walker
[2018-10-06 11:51] LABS: ANISOCYTOSIS 2+; MACROCYTOSIS 0; PLATELET ESTIMATE NORMAL
[2018-10-06] MEDS: DEXTROSE 5%-WATER - 1,000 ML IV SCH (12:00)
--- NOTE | 2018-10-06 14:10 | PN ---
Progress Note, Physician History of Present Illness: Pt seen earlier today. She remains alert but delusional, without acute distress. Denies abdominal pain. WBC increasing. - Current Medication List Current Medications: Active Medications Acetaminophen (Ofirmev Injection -) 1,000 mg IVPB Q6H PRN PRN Reason: PAIN LEVEL 1-5 Last Admin: 10/04/18 12:35 Dose: 1,000 mg Albuterol/Ipratropium (Duoneb -) 1 amp NEB RQID [facility] Last Admin: 10/06/18 12:20 Dose: 1 amp Chlorhexidine Gluconate (Hibiclens For Decolonization -) 1 applic TP HS [facility] Last Admin: 10/06/18 01:24 Dose: 1 applic Diltiazem HCl (Cardizem Injection -) 10 mg IVPUSH Q4H PRN PRN Reason: TACHYCARDIA Meropenem 1 gm/ Dextrose 100 mls @ 200 mls/hr IVPB Q8H-IV [facility] Last Admin: 10/06/18 09:16 Dose: 200 mls/hr Famotidine/Sodium Chloride (Pepcid 20 Mg Premixed Ivpb -) 20 mg in 50 mls @ 100 mls/hr IVPB BID [facility] Last Admin: 10/06/18 09:22 Dose: 100 mls/hr Dextrose (D5w -) 1,000 mls @ 150 mls/hr IV ASDIR [facility] Levothyroxine Sodium (Synthroid -) 100 mcg PO DAILY@0700 [facility] Levothyroxine Sodium (Synthroid Injection -) 50 mcg IVPUSH DAILY [facility] Last Admin: 10/06/18 09:23 Dose: 50 mcg [place] Carbonate (Eskalith -) 300 mg PO DAILY [facility] Last Admin: 10/06/18 09:23 Dose: 300 mg Metoprolol Tartrate (Lopressor Injection -) 5 mg IVPUSH Q6H-IV [facility] Last Admin: 10/06/18 09:16 Dose: 5 mg Mupirocin (Bactroban Ointment (For Decolonization) -) 1 applic NS BID [facility] Stop: 10/07/18 21:59 Last Admin: 10/06/18 09:23 Dose: 1 applic Vancomycin HCl (Vancomycin (Pre-Docked)) 1,000 mg IVPB Q24H [facility] Last Admin: 10/05/18 13:13 Dose: 1,000 mg - Objective Vital Signs: Vital Signs Temperature 98.4 F 10/06/18 02:00 Pulse Rate 95 H 10/06/18 09:16 Respiratory Rate 24 H 10/06/18 06:00 Blood Pressure 149/95 10/06/18 09:16 O2 Sat by Pulse Oximetry (%) 96 10/06/18 09:00 Constitutional: Yes: No Distress, Calm Cardiovascular: Yes: Tachycardia Respiratory: Yes: Regular Gastrointestinal: Yes: Soft, Other (nondistended, mild tenderness at wound site , +colostomy functioning) Genitourinary: Yes: Miguel Present (clear, yellow urine) Wound/Incision: Yes: Other (abdominal wound dressing intact) Neurological: Yes: Alert, Confusion Labs: CBC, BMP 10/06/18 05:30 10/06/18 05:30 INR, PTT INR 1.08 (0.83-1.09) 10/03/18 05:30 Problem List - Problems (1) MONIKA (acute kidney injury) Code(s): N17.9 - ACUTE KIDNEY FAILURE, UNSPECIFIED (2) Bipolar disorder Code(s): F31.9 - BIPOLAR DISORDER, UNSPECIFIED Qualifiers: Active/Remission status: in remission of unspecified degree Qualified Code( s): F31.70 - Bipolar disorder, currently in remission, most recent episode unspecified (3) Diverticulitis of large intestine with perforation without abscess or bleeding Code(s): K57.20 - DVTRCLI OF LG INT W PERFORATION AND ABSCESS W/O BLEEDING (4) History of open sigmoidectomy Code(s): Z98.890 - OTHER SPECIFIED POSTPROCEDURAL STATES; Z90.49 - ACQUIRED ABSENCE OF OTHER SPECIFIED PARTS OF DIGESTIVE TRACT (5) Hyperlipidemia Code(s): E78.5 - HYPERLIPIDEMIA, UNSPECIFIED Qualifiers: Hyperlipidemia type: unspecified Qualified Code(s): E78.5 - Hyperlipidemia , unspecified (6) Hypertension Code(s): I10 - ESSENTIAL (PRIMARY) HYPERTENSION Qualifiers: Hypertension type: essential hypertension Qualified Code(s): I10 - Essential (primary) hypertension (7) Hypothyroidism Code(s): E03.9 - HYPOTHYROIDISM, UNSPECIFIED Qualifiers: Hypothyroidism type: unspecified Qualified Code(s): E03.9 - Hypothyroidism , unspecified (8) Paroxysmal atrial fibrillation Code(s): I48.0 - PAROXYSMAL ATRIAL FIBRILLATION (9) Perforation of sigmoid colon Code(s): K63.1 - PERFORATION OF INTESTINE (NONTRAUMATIC) Assessment/Plan 67yo female presented with abdominal pain and constipation Sepsis Peritonitis Sigmoid diverticulitis w/ perforation s/p resection/colostomy Bowel obstruction Acute Respiratory failure s/p intubation - extubated Worsening Leukocytosis/Fever AFIB MONIKA - elevated but stable since yesterday Hypernatremia Bipolar disorder Leukocytosis - wbc trending up -- continue Meropenem/ Vancomycin added last night, if wbc continues to rise will consider adding Diflucan -- consider repeat CT abd/pelvis -- repeat Blood cultures no growth 24 hrs -- f/u final results peritoneal fluid cultures -- surgery following -- monitor wbc trend/temperatures Pt is currently alert, without distress, afebrile requires close monitoring
[2018-10-06] MEDS: VANCOMYCIN 1 GM in D5W (PRE-DOCKED) 1,000 MG/250 ML IVPB SCH (14:47)
[2018-10-06] MEDS ORDERED: SENNOSIDES 8.6MG TABLET (FP) PO ONE (15:22)
--- NOTE | 2018-10-06 15:47 | PN ---
Physical Exam: SUBJECTIVE: Patient seen and examined, confused, respond to name. But unable to assess for ROS. refuses exam. OBJECTIVE: Vital Signs Period Temp Pulse Resp BP Sys/Choi Pulse Ox Last 24 Hr 98.4 F-99 F 20-102 20-100 108-163/75-117 96-96 GENERAL:awake, responds to name, but disoriented, asking to speak to her nephew Neck; Soft, supple, no JVD Chest: decreased effort, few scattered rales, exam limited by lack of co- operation Abdomen:Soft, distended, patient declines detailed exam, colostomy bag in place Extremities; no edema CVS:S1s2 irregular Laboratory Results - last 24 hr 10/05/18 10/05/18 10/05/18 06:34 12:50 17:44 WBC RBC Hgb Hct MCV MCH MCHC RDW Plt Count MPV Absolute Neuts (auto) Neutrophils % Neutrophils % (Manual) Band Neutrophils % Lymphocytes % Lymphocytes % (Manual) Monocytes % Monocytes % (Manual) Eosinophils % Eosinophils % (Manual) Basophils % Basophils % (Manual) Myelocytes % (Man) Promyelocytes % (Man) Blast Cells % (Manual) Nucleated RBC % Metamyelocytes Hypochromia Platelet Estimate Platelet Comment Polychromasia Poikilocytosis Anisocytosis Microcytosis Macrocytosis Sodium Potassium Chloride Carbon Dioxide Anion Gap BUN Creatinine Creat Clearance w eGFR POC Glucometer 139.37651 122.35766 [phone] Random Glucose Calcium Phosphorus Magnesium Total Bilirubin AST ALT Alkaline Phosphatase Total Protein Albumin 10/05/18 10/05/18 10/06/18 18:07 23:38 05:30 WBC 22.1 H RBC 4.06 Hgb 10.5 L Hct 33.9 MCV 83.6 MCH 25.8 MCHC 30.9 L RDW 14.3 Plt Count 289 MPV 8.5 Absolute Neuts (auto) 19.7 H Neutrophils % 89.5 H Neutrophils % (Manual) 73.0 Band Neutrophils % 7.0 Lymphocytes % 5.2 L Lymphocytes % (Manual) 2.0 L D Monocytes % 4.4 Monocytes % (Manual) 5 Eosinophils % 0.7 Eosinophils % (Manual) 1.0 D Basophils % 0.2 Basophils % (Manual) 0.0 Myelocytes % (Man) 0 D Promyelocytes % (Man) 0 D Blast Cells % (Manual) 0 Nucleated RBC % 0 Metamyelocytes 0 Hypochromia 0 Platelet Estimate Normal Platelet Comment Present Polychromasia 0 Poikilocytosis 1+ Anisocytosis 2+ Microcytosis 0 Macrocytosis 0 Sodium 158 H Potassium 3.9 Chloride 126 H Carbon Dioxide 24 Anion Gap 8 BUN 36 H Creatinine 1.6 H Creat Clearance w eGFR 31.96 POC Glucometer 129.24241 Random Glucose 110 H Calcium 8.5 Phosphorus Magnesium Total Bilirubin AST ALT Alkaline Phosphatase Total Protein Albumin 10/06/18 05:30 WBC RBC Hgb Hct MCV MCH MCHC RDW Plt Count MPV Absolute Neuts (auto) Neutrophils % Neutrophils % (Manual) Band Neutrophils % Lymphocytes % Lymphocytes % (Manual) Monocytes % Monocytes % (Manual) Eosinophils % Eosinophils % (Manual) Basophils % Basophils % (Manual) Myelocytes % (Man) Promyelocytes % (Man) Blast Cells % (Manual) Nucleated RBC % Metamyelocytes Hypochromia Platelet Estimate Platelet Comment Polychromasia Poikilocytosis Anisocytosis Microcytosis Macrocytosis Sodium 162 H* Potassium 3.7 Chloride 129 H Carbon Dioxide 27 Anion Gap 6 L BUN 32 H Creatinine 1.6 H Creat Clearance w eGFR 31.96 POC Glucometer Random Glucose 101 Calcium 8.3 L Phosphorus 2.5 Magnesium 2.0 Total Bilirubin 0.4 AST 52 H ALT 29 Alkaline Phosphatase 112 Total Protein 4.6 L Albumin 1.6 L Active Medications Generic Name Dose Route Start Last Admin Trade Name Freq PRN Reason Stop Dose Admin Acetaminophen 1,000 mg 10/04/18 07:11 10/04/18 12:35 Ofirmev Injection - IVPB 1,000 mg Q6H PRN Administration PAIN LEVEL 1-5 Albuterol/Ipratropium 1 amp 10/02/18 20:00 10/06/18 12:20 Duoneb - NEB 1 amp RQID THOMAS Administration Chlorhexidine Gluconate 1 applic 10/02/18 22:00 10/06/18 01:24 Hibiclens For Decolonization - TP 1 applic HS THOMAS Administration Diltiazem HCl 10 mg 10/02/18 20:15 Cardizem Injection - IVPUSH Q4H PRN TACHYCARDIA Meropenem 1 gm/ Dextrose 100 mls @ 200 mls/hr 10/03/18 02:00 10/06/18 09:16 IVPB 200 mls/hr Q8H-IV THOMAS Administration Famotidine/Sodium Chloride 20 mg in 50 mls @ 100 mls/hr 10/02/18 22:00 09:22 Pepcid 20 Mg Premixed Ivpb - IVPB 100 mls/hr BID THOMAS Administration Dextrose 1,000 mls @ 150 mls/hr 10/06/18 10:02 D5w - IV ASDIR THOMAS Levothyroxine Sodium 100 mcg 10/07/18 07:00 Synthroid - PO DAILY@0700 THOMAS [place] Carbonate 300 mg 10/03/18 10:00 10/06/18 09:23 Eskalith - PO 300 mg DAILY THOMAS Administration Metoprolol Tartrate 50 mg 10/06/18 22:00 Lopressor - PO TID THOMAS Mupirocin 1 applic 10/02/18 22:00 10/06/18 09:23 Bactroban Ointment (For Decolonization) - NS 10/07/18 21:59 1 applic BID THOMAS Administration Vancomycin HCl 1,000 mg 10/05/18 13:15 10/06/18 14:47 Vancomycin (Pre-Docked) IVPB 1,000 mg Q24H THOMAS Administration Microbiology 10/02/18 15:40 Peritoneal Fluid Gram Stain - Final 10/02/18 15:40 Peritoneal Fluid Body Fluid Culture - Final 10/02/18 15:40 Peritoneal Fluid Anaerobic Culture - Final Prevotella Melaninogenica 10/05/18 12:10 Blood - Peripheral Venous Blood Culture - Preliminary NO GROWTH OBTAINED AFTER 24 HOURS, INCUBATION TO CONTINUE FOR 4 DAYS. 10/05/18 12:00 Blood - Peripheral Venous Blood Culture - Preliminary NO GROWTH OBTAINED AFTER 24 HOURS, INCUBATION TO CONTINUE FOR 4 DAYS. 10/02/18 15:40 Peritoneal Fluid Gram Stain - Final 10/02/18 15:40 Peritoneal Fluid Body Fluid Culture - Final 10/02/18 15:40 Peritoneal Fluid Anaerobic Culture - Preliminary 09/28/18 15:15 Blood - Peripheral Venous Blood Culture - Final NO GROWTH AFTER 5 DAYS INCUBATION 09/28/18 14:52 Blood - Peripheral Venous Blood Culture - Final NO GROWTH AFTER 5 DAYS INCUBATION ASSESSMENT/PLAN: 67yo F wt PM cholecystitis and bipolar presented with abdominal pain and constipation for [address] + 5.4x4.3x3.4cm pocket concerning for large inflammed diverticulum vs contained perforation, found with new onset Afib with RVR. -Sepsis due suspected sigmoid diverticulitis with localized perforation now with concerns for abscess/worsening edema s/p sigmoid resection with colostomy ( kassandra's procedure) 10/02 -Bowel obstruction+/- ileus likely from above -acute respiratory distress, suspect from progressive abdominal distension/ Large hiatal hernia/atelectasis+/- sepsis, less likley CHF/ARDS currently -Acute hypoxic respiratory failure s/p prolonged post op intubation -Leucocytosis -New onset Afib with RVR -Hypokalemia -MONIKA, cr rising, likely from hypovolumia/progressive sepsis and vinod-operative fluid shift -Hypernatremia, suspect from hypovolumia/third spacing, now with ongoing significant diuresis and poor oral free water intake -MONIKA, suspect from above +/- sepsis, ?ATN -Dilated CBD, asymptomatic -Bipolar disorder -Plan: POD 4 Extubated. CXR noted, WBC rising, CXR noted, Meropenem day 5, ID input noted, vancomycin added, day 2, monitor levels. Discussed with Dr. Underwood, about re-imaging abdomen, will follow up. Serial exams for now. Pos BM in colostomy. Peritoneal fluid cx noted. Blood cx neg so far. Sputum cx if available. Wound care per surgery. PO clears per surgery. Off NG tube. Resume po meds. Renal input noted. D5w at 150, BMP q6h for now. reverted back to NSR. Continue standing lopressor. Resume po metoprolol, resume AC when ok with surgery. DVTPPX heparin drip, to be resumed per surgery. ?Heparin dvtppx in interim, discuss with surgery. Resume po levothyroxine. COntinue ICU level of monitoring for now Dispo critically ill with progressive clinical deterioration, s/p urgent surgery. PLan co-ordinated with ICU team, cardiology, ID, surgery and nursing. Total critical care time spent 35 min. Visit type - Emergency Visit Emergency Visit: Yes ED Registration Date: 09/28/18 Care time: The patient presented to the Emergency Department on the above date and was hospitalized for further evaluation of their emergent condition. - New Patient This patient is new to me today: No - Critical Care Critical Care patient: Yes Total Critical Care Time (in minutes): 35 Critical Care Statement: The care of this patient involved high complexity decision making to prevent further life threatening deterioration of the patient 's condition and/or to evaluate & treat vital organ system(s) failure or risk of failure. - Discharge Referral Referred to [facility] No
--- NOTE | 2018-10-06 15:54 | PN ---
Progress Note, Physician History of Present Illness: s/p Sidra's procedure for OR findings of stercoral perforation with peritonitis pt seen and examined in bed, family not at bedside she is awake and alert, but confused tolerating water by mouth, no nausea, still thirsty she states she is feeling much better, pain is better NG out, colostomy with soft/muddy brown output, no stool balls per nurse Miguel with very light/clear urine - ~5L/24H yesterday, 2L 11p - 5:30a this morning - Current Medication List Current Medications: Active Medications Acetaminophen (Ofirmev Injection -) 1,000 mg IVPB Q6H PRN PRN Reason: PAIN LEVEL 1-5 Last Admin: 10/04/18 12:35 Dose: 1,000 mg Albuterol/Ipratropium (Duoneb -) 1 amp NEB RQID [facility] Last Admin: 10/06/18 12:20 Dose: 1 amp Chlorhexidine Gluconate (Hibiclens For Decolonization -) 1 applic TP HS [facility] Last Admin: 10/06/18 01:24 Dose: 1 applic Diltiazem HCl (Cardizem Injection -) 10 mg IVPUSH Q4H PRN PRN Reason: TACHYCARDIA Meropenem 1 gm/ Dextrose 100 mls @ 200 mls/hr IVPB Q8H-IV [facility] Last Admin: 10/06/18 09:16 Dose: 200 mls/hr Famotidine/Sodium Chloride (Pepcid 20 Mg Premixed Ivpb -) 20 mg in 50 mls @ 100 mls/hr IVPB BID [facility] Last Admin: 10/06/18 09:22 Dose: 100 mls/hr Dextrose (D5w -) 1,000 mls @ 150 mls/hr IV ASDIR [facility] Levothyroxine Sodium (Synthroid -) 100 mcg PO DAILY@0700 [facility] [place] Carbonate (Eskalith -) 300 mg PO DAILY [facility] Last Admin: 10/06/18 09:23 Dose: 300 mg Metoprolol Tartrate (Lopressor -) 50 mg PO TID [facility] Mupirocin (Bactroban Ointment (For Decolonization) -) 1 applic NS BID [facility] Stop: 10/07/18 21:59 Last Admin: 10/06/18 09:23 Dose: 1 applic Vancomycin HCl (Vancomycin (Pre-Docked)) 1,000 mg IVPB Q24H THOMAS Last Admin: 10/06/18 14:47 Dose: 1,000 mg - Objective Vital Signs: Vital Signs Temperature 99 F 10/06/18 14:00 Pulse Rate 82 10/06/18 14:47 Respiratory Rate 87 H 10/06/18 14:00 Blood Pressure 151/95 10/06/18 14:47 O2 Sat by Pulse Oximetry (%) 96 10/06/18 09:00 Constitutional: Yes: Well Nourished, No Distress, Calm Eyes: Yes: Conjunctiva Clear, EOM Intact HENT: Yes: Atraumatic, Normocephalic Respiratory: Yes: On Nasal O2. No: SOB Gastrointestinal: Yes: Normal Bowel Sounds, Soft, Tenderness (incisional), Other (colostomy pink, edematous, productive of gas and muddy brown stool, no stool balls coming out ostomy). No: Distention Genitourinary: Yes: Miguel Present, Polyuria. No: Hematuria Extremities: Yes: Erythema (medial left antecubital and forearm with some ecchymosis from IV sites). No: Cool, Cyanosis Edema: Yes (some generalized) Integumentary: Yes: Incision (midline with dressings), Skin Tear (two small denuded spots between ostomy appliance and midline wounds, broken blisters). No : Jaundice, Rash Wound/Incision: Yes: [place] Intact (between wounds in midline), Dressing Dry and Intact, Dressing Removed (and packing changed in midline wounds - used 2x2 gauzes in each, covered with folded gauze, abd and tape; ostomy base also changed with convex piece, then small duoderm over open skin from broken blister , and 57mm base and bag; skin prep used underneath), Draining (serous mostly on gauze), Unapproximated (between anita) Neurological: Yes: Alert, Confusion Labs: CBC, BMP 10/06/18 05:30 10/06/18 05:30 wbc rising H/H stable Na, Cl dipped one point each last night, up this am BUN coming down slowly, Cr down from peak but stable from yesterday Problem List - Problems (1) Perforation of sigmoid colon Assessment/Plan: POD4 s/p sigmoidectomy with colostomy (Sidra's procedure) for stercoral perforation of sigmoid with peritonitis in ICU with hypernatremia f/u cultures and pathology - one peritoneal fluid cx growing prevotella continue antibiotics per ID - could they be contributing to Na load? muddy stool out ostomy, no additional stool balls yet po meds and ok for clear liquids and plenty of water, NO caffeine pain meds - prn - had tylenol once yesterday, not needing much PT seeing, pt weak midline incision with several open wounds - packing changed, wounds clean will need to get proper size convex appliance for ostomy Code(s): K63.1 - PERFORATION OF INTESTINE (NONTRAUMATIC) (2) Stercoral ulcer of large intestine Code(s): K63.3 - ULCER OF INTESTINE (3) Stercolith Code(s): K56.41 - FECAL IMPACTION (4) Constipation Assessment/Plan: will give senna x1 - need to ensure stool balls are evacuated, not just stool around them Code(s): K59.00 - CONSTIPATION, UNSPECIFIED Qualifiers: Qualified Code(s): K59.04 - Chronic idiopathic constipation (5) Acute hypernatremia Assessment/Plan: confused on hypotonic fluids - adjusted by renal, who are following diuresing copiously, clear urine free water and clear liquids po monitor closely - would NOT transfer out of ICU until Na normalizes and mental status improves will send urine lytes and osmoles, serum osmol as well Code(s): E87.0 - HYPEROSMOLALITY AND HYPERNATREMIA (6) Paroxysmal atrial fibrillation Assessment/Plan: echo results noted - mild diastolic dysfunction but normal EF cardiology following rate and rhythm controlled heparin drip - on hold perioperatively keep lytes normal - working on Na balance pain controlled ok for po beta blockers if needed Code(s): I48.0 - PAROXYSMAL ATRIAL FIBRILLATION (7) Bipolar disorder Assessment/Plan: lithium resumed po Code(s): F31.9 - BIPOLAR DISORDER, UNSPECIFIED Qualifiers: Qualified Code(s): F31.70 - Bipolar disorder, currently in remission, most recent episode unspecified (8) Hypertension Assessment/Plan: ok to resume po meds Code(s): I10 - ESSENTIAL (PRIMARY) HYPERTENSION Qualifiers: Qualified Code(s): I10 - Essential (primary) hypertension (9) Hyperlipidemia Code(s): E78.5 - HYPERLIPIDEMIA, UNSPECIFIED Qualifiers: Qualified Code(s): E78.5 - Hyperlipidemia, unspecified (10) Hypothyroidism Assessment/Plan: ok to resume synthroid po vs iv per primary team Code(s): E03.9 - HYPOTHYROIDISM, UNSPECIFIED Qualifiers: Qualified Code(s): E03.9 - Hypothyroidism, unspecified (11) Hiatal hernia without gangrene or obstruction Code(s): K44.9 - DIAPHRAGMATIC HERNIA WITHOUT OBSTRUCTION OR GANGRENE Assessment/Plan This patient is critically ill. Time spent reviewing chart, examining patient, talking with providers and/or family and documentation is [address] Perez.
--- NOTE | 2018-10-06 15:55 | PN ---
Physical Exam: SUBJECTIVE: Patient seen and examined at bed side this morning. Confused. Not oriented to time, place and person. No active overnight events. OBJECTIVE: Vital Signs Period Temp Pulse Resp BP Sys/Choi Pulse Ox Last 24 Hr 98.4 F-99 F 20-102 20-100 108-163/75-117 96-96 GENERAL: Middle aged female, sitting comfortably in bed, awake, alert, and not oriented to time, place, person, in no acute distress. HEAD: Normal with no signs of trauma. EYES: EOM intact, no pallor or icterus. ENT: Ears normal, dry mucous membranes. NECK: Supple. LUNGS: Breath sounds equal, clear to auscultation bilaterally, no wheezes, no crackles, no accessory muscle use. HEART: Regular rate and rhythm, S1, S2 without murmur. ABDOMEN: Ostomy bag in place-functioning, dressing placed on the surgical site- clean, Soft, nontender, nondistended, normoactive bowel sounds. EXTREMITIES: 2+ pulses, warm, well-perfused, no edema. NEUROLOGICAL: Confused. No facial droop. Normal speech, gait not observed. PSYCH: Normal mood, normal affect. SKIN: Warm, dry, normal turgor, no rashes or lesions noted Laboratory Results - last 24 hr 10/05/18 10/05/18 10/05/18 06:34 12:50 17:44 WBC RBC Hgb Hct MCV MCH MCHC RDW Plt Count MPV Absolute Neuts (auto) Neutrophils % Neutrophils % (Manual) Band Neutrophils % Lymphocytes % Lymphocytes % (Manual) Monocytes % Monocytes % (Manual) Eosinophils % Eosinophils % (Manual) Basophils % Basophils % (Manual) Myelocytes % (Man) Promyelocytes % (Man) Blast Cells % (Manual) Nucleated RBC % Metamyelocytes Hypochromia Platelet Estimate Platelet Comment Polychromasia Poikilocytosis Anisocytosis Microcytosis Macrocytosis Sodium Potassium Chloride Carbon Dioxide Anion Gap BUN Creatinine Creat Clearance w eGFR POC Glucometer 139.38175 122.13162 127.67636 Random Glucose Calcium Phosphorus Magnesium Total Bilirubin AST ALT Alkaline Phosphatase Total Protein Albumin 10/05/18 10/05/18 10/06/18 18:07 23:38 05:30 WBC 22.1 H RBC 4.06 Hgb 10.5 L Hct 33.9 MCV 83.6 MCH 25.8 MCHC 30.9 L RDW 14.3 Plt Count 289 MPV 8.5 Absolute Neuts (auto) 19.7 H Neutrophils % 89.5 H Neutrophils % (Manual) 73.0 Band Neutrophils % 7.0 Lymphocytes % 5.2 L Lymphocytes % (Manual) 2.0 L D Monocytes % 4.4 Monocytes % (Manual) 5 Eosinophils % 0.7 Eosinophils % (Manual) 1.0 D Basophils % 0.2 Basophils % (Manual) 0.0 Myelocytes % (Man) 0 D Promyelocytes % (Man) 0 D Blast Cells % (Manual) 0 Nucleated RBC % 0 Metamyelocytes 0 Hypochromia 0 Platelet Estimate Normal Platelet Comment Present Polychromasia 0 Poikilocytosis 1+ Anisocytosis 2+ Microcytosis 0 Macrocytosis 0 Sodium 158 H Potassium 3.9 Chloride 126 H Carbon Dioxide 24 Anion Gap 8 BUN 36 H Creatinine 1.6 H Creat Clearance w eGFR 31.96 POC Glucometer 129.55285 Random Glucose 110 H Calcium 8.5 Phosphorus Magnesium Total Bilirubin AST ALT Alkaline Phosphatase Total Protein Albumin 10/06/18 05:30 WBC RBC Hgb Hct MCV MCH MCHC RDW Plt Count MPV Absolute Neuts (auto) Neutrophils % Neutrophils % (Manual) Band Neutrophils % Lymphocytes % Lymphocytes % (Manual) Monocytes % Monocytes % (Manual) Eosinophils % Eosinophils % (Manual) Basophils % Basophils % (Manual) Myelocytes % (Man) Promyelocytes % (Man) Blast Cells % (Manual) Nucleated RBC % Metamyelocytes Hypochromia Platelet Estimate Platelet Comment Polychromasia Poikilocytosis Anisocytosis Microcytosis Macrocytosis Sodium 162 H* Potassium 3.7 Chloride 129 H Carbon Dioxide 27 Anion Gap 6 L BUN 32 H Creatinine 1.6 H Creat Clearance w eGFR 31.96 POC Glucometer Random Glucose 101 Calcium 8.3 L Phosphorus 2.5 Magnesium 2.0 Total Bilirubin 0.4 AST 52 H ALT 29 Alkaline Phosphatase 112 Total Protein 4.6 L Albumin 1.6 L Active Medications Generic Name Dose Route Start Last Admin Trade Name Freq PRN Reason Stop Dose Admin Acetaminophen 1,000 mg 10/04/18 07:11 10/04/18 12:35 Ofirmev Injection - IVPB 1,000 mg Q6H PRN Administration PAIN LEVEL 1-5 Albuterol/Ipratropium 1 amp 10/02/18 20:00 10/06/18 12:20 Duoneb - NEB 1 amp RQID THOMAS Administration Chlorhexidine Gluconate 1 applic 10/02/18 22:00 10/06/18 01:24 Hibiclens For Decolonization - TP 1 applic HS THOMAS Administration Diltiazem HCl 10 mg 10/02/18 20:15 Cardizem Injection - IVPUSH Q4H PRN TACHYCARDIA Meropenem 1 gm/ Dextrose 100 mls @ 200 mls/hr 10/03/18 02:00 10/06/18 09:16 IVPB 200 mls/hr Q8H-IV THOMAS Administration Famotidine/Sodium Chloride 20 mg in 50 mls @ 100 mls/hr 10/02/18 22:00 09:22 Pepcid 20 Mg Premixed Ivpb - IVPB 100 mls/hr BID THOMAS Administration Dextrose 1,000 mls @ 150 mls/hr 10/06/18 10:02 10/06/18 12:00 D5w - IV 150 mls/hr ASDIR THOMAS Administration Levothyroxine Sodium 100 mcg 10/07/18 07:00 Synthroid - PO DAILY@0700 THOMAS [place] Carbonate 300 mg 10/03/18 10:00 10/06/18 09:23 Eskalith - PO 300 mg DAILY THOMAS Administration Metoprolol Tartrate 50 mg 10/06/18 22:00 Lopressor - PO TID THOMAS Mupirocin 1 applic 10/02/18 22:00 10/06/18 09:23 Bactroban Ointment (For Decolonization) - NS 10/07/18 21:59 1 applic BID THOMAS Administration Vancomycin HCl 1,000 mg 10/05/18 13:15 10/06/18 14:47 Vancomycin (Pre-Docked) IVPB 1,000 mg Q24H THOMAS Administration ASSESSMENT/PLAN: Patient is a 67 year old female with significant past medical history of cholecystitis, chronic constipation, bipolar, pneumoperitoneum s/p ex lap, sigmoid colectomy with colostomy, POD # 4 (10/02/18) admitted to the ICU for post-op care . GI Sigmoid diverticulitis s/p (Sidra's procedure) sigmoid colectomy w/ colostomy, POD # 4 Ostomy functioning. Surgical dressing changed by Dr. Underwood today. Continue IV Meropenem and IV Vanc Blood culture/Urine cultures negative Body fluid culture: Prevotella (10/02) Clear liquid diet Neurology Altered mental status could be from hypernatremia Continue to treat hypernatremia Avoid narcotics Renal Sodium 158--->162 Free Water deficit: 5.2 L. AMS could be due to Hypernatremia D5W @ 150 mls/hr. She has been drinking PO liquid. Urine output yesterday was 4650 ml, today 3500 so far Serum osm, urine osm ordered Monitor in ICU. Pulmonary Extubated last week . Duonebs QID Cardiology New onset A. fib with RVR-now rate is controlled and in Sinus. Metoprolol IV changed to PO Metoprolol 50mg TID with Cardizem 10mg IV push Q4H PRN Heparin on hold due to recent surgery. Endocrinology Hypothyroidism Changed to PO Synthroid 100 mcg Psych Bipolar disorder: restarted [place] PO FEN IV D5W @ 150 mls/hr Electrolytes to be repeated in AM Clears Prophylaxis For GI: Ranitidine 150 mg PO BID For DVT: SCDs no a/c due to recent surgeryr DVT: Dispo: Monitor in ICU due to hypernatremia with Altered mental status. Case seen and discussed with Dr. Walker. Visit type - Emergency Visit Emergency Visit: Yes ED Registration Date: 09/28/18 Care time: The patient presented to the Emergency Department on the above date and was hospitalized for further evaluation of their emergent condition. - New Patient This patient is new to me today: No - Critical Care Critical Care patient: Yes Total Critical Care Time (in minutes): 35 Critical Care Statement: The care of this patient involved high complexity decision making to prevent further life threatening deterioration of the patient 's condition and/or to evaluate & treat vital organ system(s) failure or risk of failure. - Discharge Referral Referred to [facility] No
[2018-10-06 20:07] LABS: OSMOLALITY,SERUM 337 mosm/kg (278-305)
[2018-10-06 20:51] LABS: ANION GAP 8 MMOL/L (8-16); BLOOD UREA NITROGEN 30 mg/dL (7-18); CALCIUM 8.1 mg/dL (8.5-10.1); CHLORIDE 124 mmol/L (98-107); CO2 27 mmol/L (21-32); CREATININE 1.6 mg/dL (0.55-1.3); GLUCOSE,RANDOM 135 mg/dL (74-106); POTASSIUM 3.5 mmol/L (3.5-5.1); SODIUM 159 mmol/L (136-145)
[2018-10-06] MEDS: ACETAMINOPHEN 1000 MG/100 ML VIAL (NON FORMULARY) IVPB PRN (21:39)
[2018-10-06] MEDS: METOPROLOL TARTRATE 50 MG TABLET (FP) PO SCH (21:40)
[2018-10-06] MEDS: RANITIDINE HCL 150 MG TABLET (FP) PO SCH (21:40)
[2018-10-06] MEDS ORDERED: traZODone HCL 50 MG TABLET (FP) PO ONE (23:45)
[2018-10-07] MEDS: MEROPENEM 1 GM in DEXTROSE 5%-WATER 100 ML IVPB SCH ×3 (02:30→17:12)
[2018-10-07 06:14] LABS: HEMATOCRIT 32.6 % (32.4-45.2); HEMOGLOBIN 10.3 GM/dL (10.7-15.3); MCH 26.1 pg (25.7-33.7); MCHC 31.4 g/dl (32.0-36.0); MEAN PLT VOLUME 8.5 fl (7.5-11.1); PLATELET COUNT 288 K/MM3 (134-434); RBC 3.93 M/mm3 (3.60-5.2); RDW 14.1 % (11.6-15.6); WHITE BLOOD COUNT 20.7 K/mm3 (4.0-10.0)
[2018-10-07 06:21] LABS: ANION GAP 5 MMOL/L (8-16); BLOOD UREA NITROGEN 27 mg/dL (7-18); CALCIUM 7.9 mg/dL (8.5-10.1); CHLORIDE 124 mmol/L (98-107); CO2 29 mmol/L (21-32); CREATININE 1.4 mg/dL (0.55-1.3); GLUCOSE,RANDOM 106 mg/dL (74-106); PHOSPHOROUS 2.3 mg/dL (2.5-4.9); POTASSIUM 3.5 mmol/L (3.5-5.1); SODIUM 157 mmol/L (136-145)
[2018-10-07] MEDS: METOPROLOL TARTRATE 50 MG TABLET (FP) PO SCH ×3 (06:58→21:12)
[2018-10-07] MEDS: LEVOTHYROXINE NA 100 MCG TABLET (FP) PO SCH (07:00)
[2018-10-07] MEDS: ALBUTEROL SO4 2.5/IPRATROPIUM 0.5 INH SOL 3 ML VIAL.NEB. NEB SCH ×3 (07:25→16:38)
--- NOTE | 2018-10-07 07:30 | PN ---
Physical Exam: SUBJECTIVE: Patient seen and examined at bedside. Conversational, but confused. Pt believes she is in a "[facility]" and that she has not eaten in 51 days. She denies chest pain, fever, chills, sob. OBJECTIVE: Vital Signs Period Temp Pulse Resp BP Sys/Choi Pulse Ox Last 24 Hr 97.3 F-99 F 20-99 20-103 143-157/79-112 96-96 GENERAL: Middle aged female, sitting comfortably in bed, awake, alert, and not oriented to time, place, person, in no acute distress. HEAD: Normal with no signs of trauma. EYES: EOM intact, no pallor or icterus. ENT: Ears normal, dry mucous membranes. NECK: Supple. LUNGS: Breath sounds equal, clear to auscultation bilaterally, no wheezes, no crackles, no accessory muscle use. HEART: Regular rate and rhythm, S1, S2 without murmur. ABDOMEN: Ostomy bag in place-functioning, dressing placed on the surgical site- clean, Soft, nontender, nondistended, normoactive bowel sounds. EXTREMITIES: 2+ pulses, warm, well-perfused, no edema. NEUROLOGICAL: Confused. No facial droop. Normal speech, gait not observed. PSYCH: Normal mood, normal affect. SKIN: Warm, dry, normal turgor, no rashes or lesions noted CBCD WBC 20.7 K/mm3 (4.0-10.0) H 10/07/18 05:15 RBC 3.93 M/mm3 (3.60-5.2) 10/07/18 05:15 Hgb 10.3 GM/dL (10.7-15.3) L 10/07/18 05:15 Hct 32.6 % (32.4-45.2) 10/07/18 05:15 MCV 83.0 fl (80-96) 10/07/18 05:15 MCHC 31.4 g/dl (32.0-36.0) L 10/07/18 05:15 RDW 14.1 % (11.6-15.6) 10/07/18 05:15 Plt Count 288 K/MM3 (134-434) 10/07/18 05:15 MPV 8.5 fl (7.5-11.1) 10/07/18 05:15 CMP Sodium 157 mmol/L (136-145) H 10/07/18 05:15 Potassium 3.5 mmol/L (3.5-5.1) 10/07/18 05:15 Chloride 124 mmol/L (98-107) H 10/07/18 05:15 Carbon Dioxide 29 mmol/L (21-32) 10/07/18 05:15 Anion Gap 5 MMOL/L (8-16) L 10/07/18 05:15 BUN 27 mg/dL (7-18) H 10/07/18 05:15 Creatinine 1.4 mg/dL (0.55-1.3) H 10/07/18 05:15 Creat Clearance w eGFR 37.28 (>60) 10/07/18 05:15 Calcium 7.9 mg/dL (8.5-10.1) L 10/07/18 05:15 Total Bilirubin 0.4 mg/dL (0.2-1) 10/06/18 05:30 AST 52 U/L (15-37) H 10/06/18 05:30 ALT 29 U/L (13-61) 10/06/18 05:30 Alkaline Phosphatase 112 U/L (45-117) 10/06/18 05:30 Total Protein 4.6 g/dl (6.4-8.2) L 10/06/18 05:30 Albumin 1.6 g/dl (3.4-5.0) L 10/06/18 05:30 Active Medications Acetaminophen (Ofirmev Injection -) 1,000 mg IVPB Q6H PRN PRN Reason: PAIN LEVEL 1-5 Last Admin: 10/06/18 21:39 Dose: 1,000 mg Albuterol/Ipratropium (Duoneb -) 1 amp NEB RQID [facility] Last Admin: 10/06/18 20:11 Dose: 1 amp Chlorhexidine Gluconate (Hibiclens For Decolonization -) 1 applic TP HS [facility] Last Admin: 10/06/18 21:39 Dose: 1 applic Diltiazem HCl (Cardizem Injection -) 10 mg IVPUSH Q4H PRN PRN Reason: TACHYCARDIA Meropenem 1 gm/ Dextrose 100 mls @ 200 mls/hr IVPB Q8H-IV [facility] Last Admin: 10/07/18 02:30 Dose: 200 mls/hr Dextrose (D5w -) 1,000 mls @ 150 mls/hr IV ASDIR [facility] Last Admin: 10/06/18 12:00 Dose: 150 mls/hr Levothyroxine Sodium (Synthroid -) 100 mcg PO DAILY@0700 [facility] Last Admin: 10/07/18 07:00 Dose: 100 mcg [place] Carbonate (Eskalith -) 300 mg PO DAILY [facility] Last Admin: 10/06/18 09:23 Dose: 300 mg Metoprolol Tartrate (Lopressor -) 50 mg PO TID [facility] Last Admin: 10/07/18 06:58 Dose: 50 mg Mupirocin (Bactroban Ointment (For Decolonization) -) 1 applic NS BID [facility] Stop: 10/07/18 21:59 Last Admin: 10/06/18 23:46 Dose: 1 applic Ranitidine HCl (Zantac -) 150 mg PO BID [facility] Last Admin: 10/06/18 21:40 Dose: 150 mg Vancomycin HCl (Vancomycin (Pre-Docked)) 1,000 mg IVPB Q24H [facility] Last Admin: 10/06/18 14:47 Dose: 1,000 mg ASSESSMENT/PLAN: Patient is a 67 year old female with significant past medical history of cholecystitis, chronic constipation, bipolar, pneumoperitoneum s/p ex lap, sigmoid colectomy with colostomy, POD #5 (10/02/18) admitted to the ICU for post -op care. GI #Sigmoid diverticulitis s/p (Sidra's procedure) sigmoid colectomy w/ colostomy, POD # 5 -Ostomy functioning, +brown stool in stoma -Continue IV Meropenem and IV Vanc -Blood culture/Urine cultures negative -Body fluid culture: Prevotella (10/02) -Clear liquid diet Neurology #Altered mental status could be from hypernatremia -Continue to treat hypernatremia -Avoid narcotics Renal #Sodium 162--->157 Free Water deficit: 4.5 L. AMS could be due to Hypernatremia -D5W @ 125 mls/hr. She has been drinking PO liquid. Urine output yesterday was 4650 ml, today 3500 so far -Sosm 337, Uosm 224. BMP q12H. -Per nephro, may potentially be underlying DI due to h/o lithium use, polyuria, low Uosm in relation to Sosm. Recommend to hold Cuero for now pending psych approval and for possible use of alternative med for bipolar d/o -Encourage PO hydration Pulmonary -Extubated last week -Ducolleen QID Cardiology #New onset A. fib with RVR-now rate is controlled and in Sinus. 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 AC therapy Endocrinology #Hypothyroidism -PO Synthroid 100 mcg Psych #Bipolar disorder -Spoke with psych, will dc Cuero for now until hypernatremia corrects due to concern for DI #Manic psychosis, acute -Per psych, start Abilify 5 PO QD FEN -IV D5W @ 125 mls/hr -Electrolytes to be repeated in AM -CLD Prophylaxis -For GI: Ranitidine 150 mg PO BID -For DVT: heparin drip, cleared by surg Dispo: transfer to tele Visit type - Emergency Visit Emergency Visit: Yes ED Registration Date: 09/28/18 Care time: The patient presented to the Emergency Department on the above date and was hospitalized for further evaluation of their emergent condition. - New Patient This patient is new to me today: No - Critical Care Critical Care patient: Yes Total Critical Care Time (in minutes): 40 Critical Care Statement: The care of this patient involved high complexity decision making to prevent further life threatening deterioration of the patient 's condition and/or to evaluate & treat vital organ system(s) failure or risk of failure.
[2018-10-07] MEDS ORDERED: NAPH,MB-DB/K PH,MBDB POWDER PACKET PO ONE (09:15)
[2018-10-07] MEDS ORDERED: POTASSIUM PHOSPHATE 20 MM in DEXTROSE 5%-WATER - 250 ML IVPB ONE (10:00)
[2018-10-07] MEDS ORDERED: PT OWN MED DRAWER 7, Y5N ONE ×2 (10:15→17:09)
[2018-10-07] MEDS: MUPIROCIN 2% TOPICAL OINTMENT FOR DECOLONIZATION NS SCH (10:30)
[2018-10-07] MEDS: LITHIUM CARBONATE 300 MG CAPSULE (FP) PO SCH (10:44)
[2018-10-07] MEDS: RANITIDINE HCL 150 MG TABLET (FP) PO SCH ×2 (10:44→21:12)
[2018-10-07] MEDS: DEXTROSE 5%-WATER - 1,000 ML IV SCH (10:52)
--- NOTE | 2018-10-07 11:32 | PN ---
Progress Note, Physician History of Present Illness: Remains on HI POD#5 sigmoidectomy with colostomy (Sidra's procedure) for sigmoid stercoral perforation with peritonitis. Remains in NSR. Tolerating clear liquid diet. - Current Medication List Current Medications: Active Medications Acetaminophen (Ofirmev Injection -) 1,000 mg IVPB Q6H PRN PRN Reason: PAIN LEVEL 1-5 Last Admin: 10/06/18 21:39 Dose: 1,000 mg Albuterol/Ipratropium (Duoneb -) 1 amp NEB RQID [facility] Last Admin: 10/07/18 07:25 Dose: Not Given Chlorhexidine Gluconate (Hibiclens For Decolonization -) 1 applic TP HS [facility] Last Admin: 10/06/18 21:39 Dose: 1 applic Diltiazem HCl (Cardizem Injection -) 10 mg IVPUSH Q4H PRN PRN Reason: TACHYCARDIA Meropenem 1 gm/ Dextrose 100 mls @ 200 mls/hr IVPB Q8H-IV [facility] Last Admin: 10/07/18 10:44 Dose: 200 mls/hr Dextrose (D5w -) 1,000 mls @ 150 mls/hr IV ASDIR [facility] Last Admin: 10/07/18 10:52 Dose: 150 mls/hr Potassium Phosphate 20 mm/ (Dextrose) 256.6667 mls @ 62.5 mls/hr IVPB ONCE ONE Stop: 10/07/18 14:06 Levothyroxine Sodium (Synthroid -) 100 mcg PO DAILY@0700 [facility] Last Admin: 10/07/18 07:00 Dose: 100 mcg [place] Carbonate (Eskalith -) 300 mg PO DAILY [facility] Last Admin: 10/07/18 10:44 Dose: 300 mg Metoprolol Tartrate (Lopressor -) 50 mg PO TID [facility] Last Admin: 10/07/18 06:58 Dose: 50 mg Mupirocin (Bactroban Ointment (For Decolonization) -) 1 applic NS BID [facility] Stop: 10/07/18 21:59 Last Admin: 10/06/18 23:46 Dose: 1 applic Ranitidine HCl (Zantac -) 150 mg PO BID [facility] Last Admin: 10/07/18 10:44 Dose: 150 mg Vancomycin HCl (Vancomycin (Pre-Docked)) 1,000 mg IVPB Q24H [facility] Last Admin: 10/06/18 14:47 Dose: 1,000 mg - Objective Vital Signs: Vital Signs Temperature 98.6 F 10/07/18 10:15 Pulse Rate 119 H 10/07/18 10:15 Respiratory Rate 22 H 10/07/18 10:15 Blood Pressure 153/100 10/07/18 10:15 O2 Sat by Pulse Oximetry (%) 96 10/06/18 19:47 Constitutional: Yes: No Distress, Calm Neck: Yes: Supple Cardiovascular: Yes: Regular Rate and Rhythm Respiratory: Yes: Regular, Diminished, On Nasal O2 Gastrointestinal: Yes: Soft, Hypoactive Bowel Sounds, Other (Colostomy) Edema: No Labs: CBC, BMP 10/07/18 05:15 10/07/18 05:15 INR, PTT INR 1.08 (0.83-1.09) 10/03/18 05:30 - ....Imaging EKG: Report Reviewed (Tele: NSR) Problem List - Problems (1) Diverticulitis of large intestine with perforation without abscess or bleeding Code(s): K57.20 - DVTRCLI OF LG INT W PERFORATION AND ABSCESS W/O BLEEDING (2) Hyperlipidemia Code(s): E78.5 - HYPERLIPIDEMIA, UNSPECIFIED Qualifiers: Hyperlipidemia type: unspecified Qualified Code(s): E78.5 - Hyperlipidemia , unspecified (3) Hypertension Code(s): I10 - ESSENTIAL (PRIMARY) HYPERTENSION Qualifiers: Hypertension type: essential hypertension Qualified Code(s): I10 - Essential (primary) hypertension (4) Hypothyroidism Code(s): E03.9 - HYPOTHYROIDISM, UNSPECIFIED Qualifiers: Hypothyroidism type: unspecified Qualified Code(s): E03.9 - Hypothyroidism , unspecified (5) Paroxysmal atrial fibrillation Code(s): I48.0 - PAROXYSMAL ATRIAL FIBRILLATION (6) History of open sigmoidectomy Code(s): Z98.890 - OTHER SPECIFIED POSTPROCEDURAL STATES; Z90.49 - ACQUIRED ABSENCE OF OTHER SPECIFIED PARTS OF DIGESTIVE TRACT Assessment/Plan 09/30/2018 Echo: Normal LV size and fxn LVEF 60-65%, mildly impaired LV compliance, normal RV fxn, normal atrial sizes, mild TR, trace-mild MR 1. POD#5 sigmoidectomy with colostomy (Sidra's procedure) for sigmoid stercoral perforation with peritonitis 2. Paroxysmal atrial fibrillation [id number] score of 3 currently on no A/C 3. Diastolic LV dysfunction with clinical class 0 NYHA classification LV failure 4. Hypertension 5. Hypothyroidism 6. Bipolar disorder, paranoid behavior 7. Acute on CKD 8. Hypernatremia PLAN: 1. Resume A/C once post-op hemostasis is achieved, to be reviewed with surgery 2. Continue Lopressor 50 tid with IV Cardizem as needed for rate-control 3. Antibiotic as per the primary team 4. IV hydration D5/0.5 NS with close monitoring of renal function and electrolytes, correction of Hypernatremia with free water repletion
--- NOTE | 2018-10-07 11:53 | CON.PSY ---
Psychiatry Consult Chief Complaint: 67 year old female with a history of BIPolar Disorder, s?P Surgery. Staff reprt confusion agitationand hallucinations. Stable Serum [place] levels. Symptoms: reports: Diurnal Mood Changes, Memory Impairment, Restlessness - Previous Psychiatric Treatment Outpatient: More than 6 mos ago Inpatient: One prior admission - Previous Substance Abuse Treatment Outpatient: None Inpatient: None - Reason for Previous Treatment Reason for Previous Treatment: Biploar Illness - Current Medications Current Medications: Active Medications Acetaminophen (Ofirmev Injection -) 1,000 mg IVPB Q6H PRN PRN Reason: PAIN LEVEL 1-5 Last Admin: 10/06/18 21:39 Dose: 1,000 mg Albuterol/Ipratropium (Duoneb -) 1 amp NEB RQID [facility] Last Admin: 10/07/18 07:25 Dose: Not Given Aripiprazole (Abilify) 5 mg PO DAILY [facility] Chlorhexidine Gluconate (Hibiclens For Decolonization -) 1 applic TP HS [facility] Last Admin: 10/06/18 21:39 Dose: 1 applic Diltiazem HCl (Cardizem Injection -) 10 mg IVPUSH Q4H PRN PRN Reason: TACHYCARDIA Meropenem 1 gm/ Dextrose 100 mls @ 200 mls/hr IVPB Q8H-IV [facility] Last Admin: 10/07/18 10:44 Dose: 200 mls/hr Dextrose (D5w -) 1,000 mls @ 150 mls/hr IV ASDIR [facility] Last Admin: 10/07/18 10:52 Dose: 150 mls/hr Potassium Phosphate 20 mm/ (Dextrose) 256.6667 mls @ 62.5 mls/hr IVPB ONCE ONE Stop: 10/07/18 14:06 Levothyroxine Sodium (Synthroid -) 100 mcg PO DAILY@0700 [facility] Last Admin: 10/07/18 07:00 Dose: 100 mcg [place] Carbonate (Eskalith -) 300 mg PO DAILY [facility] Last Admin: 10/07/18 10:44 Dose: 300 mg Metoprolol Tartrate (Lopressor -) 50 mg PO TID [facility] Last Admin: 10/07/18 06:58 Dose: 50 mg Mupirocin (Bactroban Ointment (For Decolonization) -) 1 applic NS BID [facility] Stop: 10/07/18 21:59 Last Admin: 10/06/18 23:46 Dose: 1 applic Ranitidine HCl (Zantac -) 150 mg PO BID [facility] Last Admin: 10/07/18 10:44 Dose: 150 mg Vancomycin HCl (Vancomycin (Pre-Docked)) 1,000 mg IVPB Q24H [facility] Last Admin: 10/06/18 14:47 Dose: 1,000 mg - Allergies Allergies: Allergies Allergy/AdvReac Type Severity Reaction Status Date / Time Penicillins Allergy Rash Verified 09/29/18 12:29 morphine AdvReac Verified 10/04/18 19:11 - Current Living Status Usual Living Arrangement: With Spouse - Current Mental Status Evaluation Appearance: Disheveled Attitude: Cooperative - Affect Affect: Labile - Mood Mood: Euphoric - Speech/Language Expressive: Delayed - Psychomotor Activity Psychomotor Activity: Hyperactive - Thought Process Thought Process: Circumstantial - Thought Content Hallucinations: Present Type: Auditory, Visual Delusions: Absent - Self Perception Self Perception: No Impairment - Cognition Attention: Diminished Memory, Short Term: 2/3 Memory, Remote with Promptin/3 - Concentration Serial Sevens Intact: No Simple Calculations Intact: Yes - Abstraction Proverb Interpretation: Impaired Judgement: Moderately Impaired - Insight Insight: Impaired - Impulse Control Impulse Control: Minimally Impaired - Suicidal Ideation Suicidal Ideation: No - Homicidal Ideation Homicidal Ideation: No Assessment/Plan 1) abilify 5mg po od for Manic psychosis. 2) continue with [place].
--- NOTE | 2018-10-07 12:23 | PN ---
Progress Note (short form) - Note Progress Note: Renal follow up for MONIKA Pt seen and examined in the ICU awake and alert no acute complaints reports drinking a large amount of water at home has been on [place] for 20+ year Vital Signs Temperature 98.6 F 10/07/18 10:15 Pulse Rate 119 H 10/07/18 10:15 Respiratory Rate 22 H 10/07/18 10:15 Blood Pressure 153/100 10/07/18 10:15 O2 Sat by Pulse Oximetry (%) 96 10/06/18 19:47 Intake & Output 10/04/18 10/05/18 10/06/18 10/07/18 23:59 23:59 23:59 23:59 Intake Total 1180 6865 6590 1390 Output Total 2070 4650 5300 3100 Balance -890 2215 1290 -1710 Weight 75.523 kg 75.6 kg 74.191 kg NAD NGT in place neck supple tachycardic dec Bs, no rales no LE edema CBC, BMP 10/07/18 05:15 10/07/18 05:15 Current Medications Acetaminophen (Ofirmev Injection -) 1,000 mg IVPB Q6H PRN PRN Reason: PAIN LEVEL 1-5 Last Admin: 10/06/18 21:39 Dose: 1,000 mg Albuterol/Ipratropium (Duoneb -) 1 amp NEB RQID [facility] Last Admin: 10/07/18 07:25 Dose: Not Given Aripiprazole (Abilify) 5 mg PO DAILY [facility] Chlorhexidine Gluconate (Hibiclens For Decolonization -) 1 applic TP HS [facility] Last Admin: 10/06/18 21:39 Dose: 1 applic Diltiazem HCl (Cardizem Injection -) 10 mg IVPUSH Q4H PRN PRN Reason: TACHYCARDIA Meropenem 1 gm/ Dextrose 100 mls @ 200 mls/hr IVPB Q8H-IV [facility] Last Admin: 10/07/18 10:44 Dose: 200 mls/hr Dextrose (D5w -) 1,000 mls @ 150 mls/hr IV ASDIR [facility] Last Admin: 10/07/18 10:52 Dose: 150 mls/hr Potassium Phosphate 20 mm/ (Dextrose) 256.6667 mls @ 62.5 mls/hr IVPB ONCE ONE Stop: 10/07/18 14:06 Levothyroxine Sodium (Synthroid -) 100 mcg PO DAILY@0700 [facility] Last Admin: 10/07/18 07:00 Dose: 100 mcg [place] Carbonate (Eskalith -) 300 mg PO DAILY [facility] Last Admin: 10/07/18 10:44 Dose: 300 mg Metoprolol Tartrate (Lopressor -) 50 mg PO TID [facility] Last Admin: 10/07/18 06:58 Dose: 50 mg Mupirocin (Bactroban Ointment (For Decolonization) -) 1 applic NS BID [facility] Stop: 10/07/18 21:59 Last Admin: 10/06/18 23:46 Dose: 1 applic Ranitidine HCl (Zantac -) 150 mg PO BID [facility] Last Admin: 10/07/18 10:44 Dose: 150 mg Vancomycin HCl (Vancomycin (Pre-Docked)) 1,000 mg IVPB Q24H [facility] Last Admin: 10/06/18 14:47 Dose: 1,000 mg 67 year old woman with hx of bipolar disorder, cholecystitis who presented with constipation and lower abd pain and found to have acute diverticulosis and new Afib with subsequent development of ileus with MONIKA. #MONIKA likely due to renal hypoprofuion/volume shifts in setting of abdominal infection/sepsis (bland urine sediment, prior abd imaging showed no obstruction in urine flow) #Diverticulitis/Ileus s/p surgical intervention #New Afib #Hypernatremia (water deficit ~5L) #hypoalbuminemia suspect that pt has component of DI (hx of lithium use, persistent water deficit , polyuria, low urine OSM in relation to serum OSM) would suggest holding lithium going forward and discussing with psych if it can be replaced Would continue free water repletion at current rate Goal rate of correction 6-8 in 24 hours Trend BMP twice a daily Renal function is stable at this time and there is no indication for SEISMOGRAPH HELPER continue supportive care surgical follow up ICU monitoring Discussed with ICU staff . Sulaiman Zarate DO
--- NOTE | 2018-10-07 12:25 | PN ---
Teaching Attending Note Name of Resident: Valeria Fox ATTENDING PHYSICIAN STATEMENT I saw and evaluated the patient. I reviewed the resident's note and discussed the case with the resident. I agree with the resident's findings and plan as documented. SUBJECTIVE: Pt seen and examined in the ICU. Pain controlled. No fevers or chills. Good ostomy output. OBJECTIVE: Vital Signs Period Temp Pulse Resp BP Sys/Choi Pulse Ox Last 24 Hr 97.3 F-99 F 20-128 20-103 143-157/79-119 96 Intake & Output 10/04/18 10/05/18 10/06/18 10/07/18 23:59 23:59 23:59 23:59 Intake Total 1180 6865 6590 1390 Output Total 2070 4650 5300 3100 Balance -890 2215 1290 -1710 Weight 75.523 kg 75.6 kg 74.191 kg Gen: NAD at rest Heart: RRR Lung: decreased breath sounds at the bases Abd: soft, nontender, dressings clean, +ostomy Ext: no edema CBC, BMP 10/07/18 05:15 10/07/18 05:15 Active Medications Acetaminophen (Ofirmev Injection -) 1,000 mg IVPB Q6H PRN PRN Reason: PAIN LEVEL 1-5 Last Admin: 10/06/18 21:39 Dose: 1,000 mg Albuterol/Ipratropium (Duoneb -) 1 amp NEB RQID [facility] Last Admin: 10/07/18 07:25 Dose: Not Given Aripiprazole (Abilify) 5 mg PO DAILY [facility] Chlorhexidine Gluconate (Hibiclens For Decolonization -) 1 applic TP HS [facility] Last Admin: 10/06/18 21:39 Dose: 1 applic Diltiazem HCl (Cardizem Injection -) 10 mg IVPUSH Q4H PRN PRN Reason: TACHYCARDIA Meropenem 1 gm/ Dextrose 100 mls @ 200 mls/hr IVPB Q8H-IV [facility] Last Admin: 10/07/18 10:44 Dose: 200 mls/hr Dextrose (D5w -) 1,000 mls @ 150 mls/hr IV ASDIR [facility] Last Admin: 10/07/18 10:52 Dose: 150 mls/hr Potassium Phosphate 20 mm/ (Dextrose) 256.6667 mls @ 62.5 mls/hr IVPB ONCE ONE Stop: 10/07/18 14:06 Levothyroxine Sodium (Synthroid -) 100 mcg PO DAILY@0700 [facility] Last Admin: 10/07/18 07:00 Dose: 100 mcg [place] Carbonate (Eskalith -) 300 mg PO DAILY [facility] Last Admin: 10/07/18 10:44 Dose: 300 mg Metoprolol Tartrate (Lopressor -) 50 mg PO TID [facility] Last Admin: 10/07/18 06:58 Dose: 50 mg Mupirocin (Bactroban Ointment (For Decolonization) -) 1 applic NS BID [facility] Stop: 10/07/18 21:59 Last Admin: 10/06/18 23:46 Dose: 1 applic Ranitidine HCl (Zantac -) 150 mg PO BID [facility] Last Admin: 10/07/18 10:44 Dose: 150 mg Vancomycin HCl (Vancomycin (Pre-Docked)) 1,000 mg IVPB Q24H [facility] Last Admin: 10/06/18 14:47 Dose: 1,000 mg ASSESSMENT AND PLAN: Perforated Sigmoid Colon/Peritonitis s/p Sigmoidectomy/Colostomy Paroxysmal Atrial Fibrillation LV Diastolic Dysfunction Acute on Chronic Renal Failure Hypernatremia - r/o Diabetes Insipidus HTN Hypothyroidism Bipolar Disorder on [place] - continue antibiotics - IVF per renal - monitor urine output, creatinine, lytes - rate controlled - resume anticoagulation if ok with surgery - PO as tolerated - DVT prophylaxis - can monitor on telemetry
[2018-10-07] MEDS: VANCOMYCIN 1 GM in D5W (PRE-DOCKED) 1,000 MG/250 ML IVPB SCH (13:00)
--- NOTE | 2018-10-07 13:47 | PN ---
Teaching Attending Note Name of Resident: Yaima Baeza ATTENDING PHYSICIAN STATEMENT I saw and evaluated the patient. I reviewed the resident's note and discussed the case with the resident. I agree with the resident's findings and plan as documented with exceptions below. SUBJECTIVE: Patient seen and examined, awake more comfortable, but disoriented, tangential conversations, unable to do ROS. OBJECTIVE: Vital Signs Period Temp Pulse Resp BP Sys/Choi Pulse Ox Last 24 Hr 97.3 F-99 F 20-128 14-103 143-157/79-119 96 Intake & Output 10/04/18 10/05/18 10/06/18 10/07/18 23:59 23:59 23:59 23:59 Intake Total 1180 6865 6590 1390 Output Total 2070 4650 5300 3100 Balance -890 2215 1290 -1710 Weight 166 lb 8 oz 166 lb 10.711 oz 163 lb 9 oz General: sitting in bed, comfortable, no tachypnea today CVS:S1S2 irregular tachycardic Chest: improved air entry, no rales or wheezing anteriorly, refuses back ausculation Abdomen:Soft, improved distension, left colostomy, surgical dressing clean, hypoactive bowel sounds, no tenderness elicited currently, no voluntary or involuntary guarding or rigidity Extremities: no edema neuro: awake, responsive, but tangential conversations, no meaningful responses , facial symmetry, moves all extremities freely, not co-oprative with further exam Active Medications Acetaminophen (Ofirmev Injection -) 1,000 mg IVPB Q6H PRN PRN Reason: PAIN LEVEL 1-5 Last Admin: 10/06/18 21:39 Dose: 1,000 mg Albuterol/Ipratropium (Duoneb -) 1 amp NEB RQID [facility] Last Admin: 10/07/18 07:25 Dose: Not Given Aripiprazole (Abilify) 5 mg PO DAILY THOMAS Chlorhexidine Gluconate (Hibiclens For Decolonization -) 1 applic TP HS [facility] Last Admin: 10/06/18 21:39 Dose: 1 applic Diltiazem HCl (Cardizem Injection -) 10 mg IVPUSH Q4H PRN PRN Reason: TACHYCARDIA Meropenem 1 gm/ Dextrose 100 mls @ 200 mls/hr IVPB Q8H-IV THOMAS Last Admin: 10/07/18 10:44 Dose: 200 mls/hr Dextrose (D5w -) 1,000 mls @ 150 mls/hr IV ASDIR [facility] Last Admin: 10/07/18 10:52 Dose: 150 mls/hr Potassium Phosphate 20 mm/ (Dextrose) 256.6667 mls @ 62.5 mls/hr IVPB ONCE ONE Stop: 10/07/18 14:06 Last Admin: 10/07/18 12:34 Dose: 62.5 mls/hr Levothyroxine Sodium (Synthroid -) 100 mcg PO DAILY@0700 [facility] Last Admin: 10/07/18 07:00 Dose: [address] [place] Carbonate (Eskalith -) 300 mg PO DAILY [facility] Last Admin: 10/07/18 10:44 Dose: 300 mg Metoprolol Tartrate (Lopressor -) 50 mg PO TID [facility] Last Admin: 10/07/18 06:58 Dose: 50 mg Mupirocin (Bactroban Ointment (For Decolonization) -) 1 applic NS BID [facility] Stop: 10/07/18 21:59 Last Admin: 10/07/18 10:30 Dose: 1 applic Ranitidine HCl (Zantac -) 150 mg PO BID [facility] Last Admin: 10/07/18 10:44 Dose: 150 mg Vancomycin HCl (Vancomycin (Pre-Docked)) 1,000 mg IVPB Q24H [facility] Last Admin: 10/06/18 14:47 Dose: 1,000 mg Laboratory Results - last 24 hr 10/06/18 10/06/18 10/06/18 05:57 13:08 19:00 WBC RBC Hgb Hct MCV MCH MCHC RDW Plt Count MPV Sodium Potassium Chloride Carbon Dioxide Anion Gap BUN Creatinine Creat Clearance w eGFR POC Glucometer 122.68560 135.01915 Random Glucose Serum Osmolality Calcium Phosphorus Magnesium Urine Osmolality Ur Random Sodium 49 Ur Random Potassium 9.0 L Ur Random Chloride 47 L 10/06/18 10/06/18 10/07/18 19:00 19:05 05:15 WBC 20.7 H RBC 3.93 Hgb 10.3 L Hct 32.6 MCV 83.0 MCH 26.1 MCHC 31.4 L RDW 14.1 Plt Count 288 MPV 8.5 Sodium 159 H Potassium 3.5 Chloride 124 H Carbon Dioxide 27 Anion Gap 8 BUN 30 H Creatinine 1.6 H Creat Clearance w eGFR 31.96 POC Glucometer Random Glucose 135 H Serum Osmolality 337 H Calcium 8.1 L Phosphorus Magnesium Urine Osmolality 224 L Ur Random Sodium Ur Random Potassium Ur Random Chloride 10/07/18 05:15 WBC RBC Hgb Hct MCV MCH MCHC RDW Plt Count MPV Sodium 157 H Potassium 3.5 Chloride 124 H Carbon Dioxide 29 Anion Gap 5 L BUN 27 H Creatinine 1.4 H Creat Clearance w eGFR 37.28 POC Glucometer Random Glucose 106 Serum Osmolality Calcium 7.9 L Phosphorus 2.3 L Magnesium 2.0 Urine Osmolality Ur Random Sodium Ur Random Potassium Ur Random Chloride Microbiology 10/05/18 12:10 Blood - Peripheral Venous Blood Culture - Preliminary NO GROWTH OBTAINED AFTER 48 HOURS, INCUBATION TO CONTINUE FOR 3 DAYS. 10/05/18 12:00 Blood - Peripheral Venous Blood Culture - Preliminary NO GROWTH OBTAINED AFTER 48 HOURS, INCUBATION TO CONTINUE FOR 3 DAYS. 10/02/18 15:40 Peritoneal Fluid Gram Stain - Final 10/02/18 15:40 Peritoneal Fluid Body Fluid Culture - Final 10/02/18 15:40 Peritoneal Fluid Anaerobic Culture - Preliminary 10/02/18 15:40 Peritoneal Fluid Gram Stain - Final 10/02/18 15:40 Peritoneal Fluid Body Fluid Culture - Final 10/02/18 15:40 Peritoneal Fluid Anaerobic Culture - Final Prevotella Melaninogenica 09/28/18 15:15 Blood - Peripheral Venous Blood Culture - Final NO GROWTH AFTER 5 DAYS INCUBATION 09/28/18 14:52 Blood - Peripheral Venous Blood Culture - Final NO GROWTH AFTER 5 DAYS INCUBATION ASSESSMENT AND PLAN: 67yo F [facility] cholecystitis and bipolar presented with abdominal pain and constipation for [address] + 5.4x4.3x3.4cm pocket concerning for large inflammed diverticulum vs contained perforation, found with new onset Afib with RVR. -Sepsis due suspected sigmoid diverticulitis with localized perforation now with concerns for abscess/worsening edema s/p sigmoid resection with colostomy ( kassandra's procedure) 10/02 -Bowel obstruction+/- ileus likely from above -acute respiratory distress, suspect from progressive abdominal distension/ Large hiatal hernia/atelectasis+/- sepsis, less likley CHF/ARDS currently -Acute hypoxic respiratory failure s/p prolonged post op intubation -Leucocytosis -New onset Afib with RVR -Hypokalemia -MONIKA, cr rising, likely from hypovolumia/progressive sepsis and vinod-operative fluid shift -Hypernatremia, suspect from hypovolumia/third spacing, now with ongoing significant diuresis and poor oral free water intake, cannot r/o DI from lithium -MONIKA, suspect from above +/- sepsis, ?ATN -Dilated CBD, asymptomatic -Bipolar disorder -AMS, suspect toxic metabolic encephalopathy from above and suspected manic episode -Plan: POD 5 Clinically better today. Meropenem day 6, vanco day 3 , monitor vanco levels. WBc with some improvement. Additional abdominal imaging per surgery, will hold off for now given improvement. ID input noted. Will consider vanco d/c in 24-48hours if WBC trending down and now further PNA concerns. Peritoneal fluid cx noted. Blood cx neg so far. Sputum cx if available. Wound care per surgery. PO clears per surgery. Off NG tube.Encourage free water intake. Renal input noted. D5w at 150, Free water intake. BMP q12h. reverted back to NSR. PO lopressor resumed. resume AC when ok with surgery. DVTPPX heparin drip, to be resumed per surgery. ?Heparin dvtppx in interim, discuss with surgery. Resume po levothyroxine. Ok with transfer to telemetry over next 24 hours. Plan co-ordinated with ICU team, cardiology, ID, surgery and nursing. Total critical care time spent 35 min.
--- NOTE | 2018-10-07 13:59 | PN ---
Progress Note, Physician History of Present Illness: s/p Sidra's procedure for OR findings of stercoral perforation with peritonitis abx per ID pt seen and examined sitting up in chair, just present she is awake and alert, but confused, though seems a little less so tolerating clears, drinking water, eating jello - still on D5W as per renal she is unable to manipulate her cup and jello spoon independently, requires assistance for intake colostomy with soft/muddy brown output, no stool balls per nurse Miguel with very light/clear urine, copious output seen by Dr. Estrada earlier today and started on abilify spoke with Dr. 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 and if there are alternative meds for her bipolar disorder - Current Medication List Current Medications: Active Medications Acetaminophen (Ofirmev Injection -) 1,000 mg IVPB Q6H PRN PRN Reason: PAIN LEVEL 1-5 Last Admin: 10/06/18 21:39 Dose: 1,000 mg Albuterol/Ipratropium (Duoneb -) 1 amp NEB RQID [facility] Last Admin: 10/07/18 07:25 Dose: Not Given Aripiprazole (Abilify) 5 mg PO DAILY THOMAS Chlorhexidine Gluconate (Hibiclens For Decolonization -) 1 applic TP HS [facility] Last Admin: 10/06/18 21:39 Dose: 1 applic Diltiazem HCl (Cardizem Injection -) 10 mg IVPUSH Q4H PRN PRN Reason: TACHYCARDIA Meropenem 1 gm/ Dextrose 100 mls @ 200 mls/hr IVPB Q8H-IV [facility]OMAS Last Admin: 10/07/18 10:44 Dose: 200 mls/hr Dextrose (D5w -) 1,000 mls @ 150 mls/hr IV ASDIR [facility] Last Admin: 10/07/18 10:52 Dose: 150 mls/hr Potassium Phosphate 20 mm/ (Dextrose) 256.6667 mls @ 62.5 mls/hr IVPB ONCE ONE Stop: 10/07/18 14:06 Last Admin: 10/07/18 12:34 Dose: 62.5 mls/hr Levothyroxine Sodium (Synthroid -) 100 mcg PO DAILY@0700 [facility] Last Admin: 10/07/18 07:00 Dose: 100 mcg [place] Carbonate (Eskalith -) 300 mg PO DAILY [facility] Last Admin: 10/07/18 10:44 Dose: 300 mg Metoprolol Tartrate (Lopressor -) 50 mg PO TID [facility] Last Admin: 10/07/18 06:58 Dose: 50 mg Mupirocin (Bactroban Ointment (For Decolonization) -) 1 applic NS BID [facility] Stop: 10/07/18 21:59 Last Admin: 10/07/18 10:30 Dose: 1 applic Ranitidine HCl (Zantac -) 150 mg PO BID [facility] Last Admin: 10/07/18 10:44 Dose: 150 mg Vancomycin HCl (Vancomycin (Pre-Docked)) 1,000 mg IVPB Q24H [facility] Last Admin: 10/06/18 14:47 Dose: 1,000 mg - Objective Vital Signs: Vital Signs Temperature 98.6 F 10/07/18 10:15 Pulse Rate 109 H 10/07/18 12:00 Respiratory Rate 14 10/07/18 12:00 Blood Pressure 155/88 10/07/18 12:00 O2 Sat by Pulse Oximetry (%) 96 10/06/18 19:47 Constitutional: Yes: Well Nourished, No Distress, Calm Eyes: Yes: Conjunctiva Clear, EOM Intact HENT: Yes: Atraumatic, Normocephalic Respiratory: Yes: Regular, On Nasal O2. No: SOB Gastrointestinal: Yes: Soft, Tenderness (incisional mainly), Other (colostomy productive of thin/liquid brown stool, no pieces in bag or palpable on digitalization of stoma through fascia). No: Distention Genitourinary: Yes: Miguel Present, Polyuria Extremities: No: Cool, Cyanosis Edema: Yes (mild general) Integumentary: Yes: Incision (midline with dressing). No: Jaundice, Rash Wound/Incision: Yes: Dressing Dry and Intact (midline). No: Dressing Removed ( will change when pt is back in bed) Neurological: Yes: Alert, Confusion, Weakness Psychiatric: Yes: Alert, Other (clear about some things, confused about others, recognizes people) Labs: CBC, BMP 12/10/18 05:15 10/07/18 05:15 wbc starting to come down Na, Cl coming down as well, slowly BUN, Cr coming down Problem List - Problems (1) Perforation of sigmoid colon Assessment/Plan: POD5 s/p sigmoidectomy with colostomy (Sidra's procedure) for stercoral perforation of sigmoid with peritonitis f/u cultures and pathology - one peritoneal fluid cx growing prevotella continue antibiotics per ID repeat blood culture neg to date muddy stool out ostomy, no additional stool balls yet in ICU with hypernatremia - looks like DI renal following encourage free water/liquid intake, NO caffeine ok for diet as tolerated she does have occasional wet cough/clearing of throat - will monitor closely pain meds - prn tylenol PT seeing, pt weak, has not been up to walk yet will need to get proper size convex appliance for ostomy Code(s): K63.1 - PERFORATION OF INTESTINE (NONTRAUMATIC) (2) Stercoral ulcer of large intestine Code(s): K63.3 - ULCER OF INTESTINE (3) Stercolith Code(s): K56.41 - FECAL IMPACTION (4) Constipation Assessment/Plan: stool balls not yet evacuated, though liquid/muddy stool output is present from colostomy Code(s): K59.00 - CONSTIPATION, UNSPECIFIED Qualifiers: Constipation type: chronic idiopathic constipation Qualified Code(s): K59.04 - Chronic idiopathic constipation (5) Diabetes insipidus Assessment/Plan: osmol, urine studies support diagnosis of DI per renal likely related to long-term lithium use as well confused, little more awake though, and slightly more lucid on hypotonic fluids - per renal, until she can take in enough PO water daily diuresing copiously, clear urine free water and clear liquids po monitor closely - would NOT transfer out of ICU until Na normalizes more and mental status improves she is not independent with PO intake at this time and requires intensive care and attention to ensure free water intake Code(s): E23.2 - DIABETES INSIPIDUS (6) Acute hypernatremia Assessment/Plan: improving slowly Code(s): E87.0 - HYPEROSMOLALITY AND HYPERNATREMIA (7) Paroxysmal atrial fibrillation Assessment/Plan: echo results noted - mild diastolic dysfunction but normal EF cardiology following rate and rhythm controlled heparin drip - on hold perioperatively could resume anticoagulation, but will watch for signs of stool impaction or GI bleeding keep lytes normal - working on Na balance pain controlled Code(s): I48.0 - PAROXYSMAL ATRIAL FIBRILLATION (8) Bipolar disorder Assessment/Plan: lithium may have contributed to DI renal suggests weaning off/stopping and pursuing alternative med(s) primary team/ICU to check with psych regarding this she got lithium this morning abilify started by psych prior to coming to this diagnosis Code(s): F31.9 - BIPOLAR DISORDER, UNSPECIFIED Qualifiers: Active/Remission status: in remission of unspecified degree Qualified Code( s): F31.70 - Bipolar disorder, currently in remission, most recent episode unspecified (9) Hypertension Assessment/Plan: on po beta paige Code(s): I10 - ESSENTIAL (PRIMARY) HYPERTENSION Qualifiers: Hypertension type: essential hypertension Qualified Code(s): I10 - Essential (primary) hypertension (10) Hyperlipidemia Code(s): E78.5 - HYPERLIPIDEMIA, UNSPECIFIED Qualifiers: Hyperlipidemia type: unspecified Qualified Code(s): E78.5 - Hyperlipidemia , unspecified (11) Hypothyroidism Assessment/Plan: ok to resume synthroid po vs iv Code(s): E03.9 - HYPOTHYROIDISM, UNSPECIFIED Qualifiers: Hypothyroidism type: unspecified Qualified Code(s): E03.9 - Hypothyroidism , unspecified (12) Hiatal hernia without gangrene or obstruction Code(s): K44.9 - DIAPHRAGMATIC HERNIA WITHOUT OBSTRUCTION OR GANGRENE Assessment/Plan This patient is critically ill. Time spent reviewing chart, examining patient, talking with providers and/or family and documentation is [address] Zarate and ICU resident.
[2018-10-07] MEDS ORDERED: HEPARIN NA (PORCINE) 5,000 UNITS/ML 1ML VIAL IVPUSH PRN ×4 (14:44→14:56)
[2018-10-07] MEDS ORDERED: HEPARIN SOD,PORK IN 0.45% NACL 25,000 UNITS/500 ML INFUS.BAG IVPB SCH (14:45)
--- NOTE | 2018-10-07 14:52 | PN ---
Physical Exam: SUBJECTIVE: Patient seen and examined at bedside. patient is confused this AM thinks that she is in a police dept. hwoever, she is comfortable; she denies any CP/SOB/N/V fevers or chills OBJECTIVE: Vital Signs Period Temp Pulse Resp BP Sys/Choi Pulse Ox Last 24 Hr 97.3 F-98.6 F 20-128 14-103 143-157/79-119 96 GENERAL: The patient is awake, oriented to self but not to time or place . EYES: no scleral icertus . NECK: no JVD LUNGS: CTA B/L; no rale,s rhonchi or wheezing HEART: Regular rate and rhythm, S1, S2 without murmur, rub or gallop. ABDOMEN: Soft, decreasing distention; colostomy in place dressing c/d/i/, hypoactive BS. EXTREMITIES: 2+ pulses, warm, well-perfused, no edema. NEUROLOGICAL:confused; SKIN: Warm, dry, normal turgor, no rashes or lesions noted Laboratory Results - last 24 hr 10/06/18 10/06/18 10/06/18 05:57 13:08 19:00 WBC RBC Hgb Hct MCV MCH MCHC RDW Plt Count MPV Sodium Potassium Chloride Carbon Dioxide Anion Gap BUN Creatinine Creat Clearance w eGFR POC Glucometer 122.94295 135.39307 Random Glucose Serum Osmolality Calcium Phosphorus Magnesium Urine Osmolality Ur Random Sodium 49 Ur Random Potassium 9.0 L Ur Random Chloride 47 L 10/06/18 10/06/18 10/07/18 19:00 19:05 05:15 WBC 20.7 H RBC 3.93 Hgb 10.3 L Hct 32.6 MCV 83.0 MCH 26.1 MCHC 31.4 L RDW 14.1 Plt Count 288 MPV 8.5 Sodium 159 H Potassium 3.5 Chloride 124 H Carbon Dioxide 27 Anion Gap 8 BUN 30 H Creatinine 1.6 H Creat Clearance w eGFR 31.96 POC Glucometer Random Glucose 135 H Serum Osmolality 337 H Calcium 8.1 L Phosphorus Magnesium Urine Osmolality 224 L Ur Random Sodium Ur Random Potassium Ur Random Chloride 10/07/18 05:15 WBC RBC Hgb Hct MCV MCH MCHC RDW Plt Count MPV Sodium 157 H Potassium 3.5 Chloride 124 H Carbon Dioxide 29 Anion Gap 5 L BUN 27 H Creatinine 1.4 H Creat Clearance w eGFR 37.28 POC Glucometer Random Glucose 106 Serum Osmolality Calcium 7.9 L Phosphorus 2.3 L Magnesium 2.0 Urine Osmolality Ur Random Sodium Ur Random Potassium Ur Random Chloride Active Medications Generic Name Dose Route Start Last Admin Trade Name Freq PRN Reason Stop Dose Admin Acetaminophen 1,000 mg 10/04/18 07:11 10/06/18 21:39 Ofirmev Injection - IVPB 1,000 mg Q6H PRN Administration PAIN LEVEL 1-5 Albuterol/Ipratropium 1 amp 10/02/18 20:00 10/07/18 11:25 Duoneb - NEB Not Given RQID [facility]OMAS Aripiprazole 5 mg 10/08/18 10:00 Abilify PO DAILY THOMAS Chlorhexidine Gluconate 1 applic 10/02/18 22:00 10/06/18 21:39 Hibiclens For Decolonization - TP 1 applic HS [facility]OMAS Administration Diltiazem HCl 10 mg 10/02/18 20:15 Cardizem Injection - IVPUSH Q4H PRN TACHYCARDIA Heparin Sodium (Porcine) 1,000 unit 10/07/18 14:44 Heparin - IVPUSH PRN PRN Heparin Heparin Sodium (Porcine) 5,000 unit 10/07/18 14:44 Heparin - IVPUSH PRN PRN Heparin Meropenem 1 gm/ Dextrose 100 mls @ 200 mls/hr 10/03/18 02:00 10/07/18 10:44 IVPB 200 mls/hr Q8H-IV [facility]OM[facility] Administration Dextrose 1,000 mls @ 150 mls/hr 10/06/18 10:02 10/07/18 10:52 D5w - IV 150 mls/hr ASDIR [facility] Administration HEPARIN SOD,PORK IN 0.45% NACL 25,000 units in 500 mls @ 20 mls/hr 10/07/18 14 :45 Heparin-1/2ns 25,000 Units/500 IVPB TITR THOMAS Protocol 1,000 UNITS/HR Levothyroxine Sodium 100 mcg 10/07/18 07:00 10/07/18 07:00 Synthroid - PO 100 mcg DAILY@0700 [facility] Administration [place] Carbonate 300 mg 10/03/18 10:00 10/07/18 10:44 Eskalith - PO 300 mg DAILY [facility] Administration Metoprolol Tartrate 50 mg 10/06/18 22:00 10/07/18 14:24 Lopressor - PO 50 mg TID [facility]OMAS Administration Mupirocin 1 applic 10/02/18 22:00 10/07/18 10:30 Bactroban Ointment (For Decolonization) - NS 10/07/18 21:59 1 applic BID [facility]OM[facility] Administration Ranitidine HCl 150 mg 10/06/18 22:00 10/07/18 10:44 Zantac - PO 150 mg BID [facility]OM[facility] Administration Vancomycin HCl 1,000 mg 10/05/18 13:15 10/07/18 13:00 Vancomycin (Pre-Docked) IVPB 1,000 mg Q24H [facility]OM[facility] Administration ASSESSMENT/PLAN: 67 y/o female with PMH of cholecystitis and bipolar disorder presented to the ED with abdominal pain and constipation since found to have a 5x4.3x3.4 oval shaped structure with air possible representing an inflamed diverticulum vs. a contained perforation #POD #5 ex-lap and small bowel resection -patient underwent ex-lap with small bowel resection and ostomy creation -patient extubated -peritoneal cx sent growing prevotella -meropenem day 5, vancomycin day 3; ID on board vanc trough for tomorrow before 4th dose -f/u surgery recs -monitor hemodynamics -D5@ 150mls/hr -monitor WBC and for signs of infection as WBC has been eleavted -possible need for re-imaging if no further improvement -monitor ostomy output -currently in ICU -IV tylenol for pain #New onset Afib -patient has been in sinus overnight however with HR in 70's-80's -metoprolol tartrate 50 TID with lopressor 5mg PRN -cardizem 10 mg PRN -restarted Heparin drip for AC; got the OK from surgery and cardio -cardio on board #Hypernatremia patient has been hypernatremic with altered mental status -possibly 2/2 lithium use inducing nephrogenic diabetes insipidus; will contatc osych to see if we can DC -encourage free water intake -BMP q12 #Bipolar Disorder -psych saw patient this AM -suggested to c/w lithium and also added abilify 5mg daily #Hypothyroidism -c/w synthroid #MONIKA -likely 2/2 sepsis and injury -nephro on board -isotonic fluids -BMP q12 F/E/N D5 @125mls/hr monitor electrolytes; BMP 12qhrs liquids DVT PPX: Heparin drip Problem List - Problems (1) Abdominal pain Code(s): R10.9 - UNSPECIFIED ABDOMINAL PAIN Qualifiers: Abdominal location: unspecified location Qualified Code(s): R10.9 - Unspecified abdominal pain (2) Abnormal CT scan, sigmoid colon Code(s): R93.3 - ABNORMAL FINDINGS ON DX IMAGING OF PRT DIGESTIVE TRACT (3) Bipolar disorder Code(s): F31.9 - BIPOLAR DISORDER, UNSPECIFIED Qualifiers: Active/Remission status: in remission of unspecified degree Qualified Code( s): F31.70 - Bipolar disorder, currently in remission, most recent episode unspecified Visit type - Emergency Visit Emergency Visit: Yes ED Registration Date: 09/28/18 Care time: The patient presented to the Emergency Department on the above date and was hospitalized for further evaluation of their emergent condition. - New Patient This patient is new to me today: No - Critical Care Critical Care patient: No
[2018-10-07] MEDS ORDERED: HEPARIN INFUSION - 25,000 UNITS/500 ML INFUS.BAG IVPB SCH (15:00)
--- NOTE | 2018-10-07 15:22 | PN ---
Progress Note, Physician History of Present Illness: stable no new issues still confusion - Current Medication List Current Medications: Active Medications Acetaminophen (Ofirmev Injection -) 1,000 mg IVPB Q6H PRN PRN Reason: PAIN LEVEL 1-5 Last Admin: 10/06/18 21:39 Dose: 1,000 mg Albuterol/Ipratropium (Duoneb -) 1 amp NEB RQID [facility] Last Admin: 10/07/18 11:25 Dose: Not Given Aripiprazole (Abilify) 5 mg PO DAILY [facility] Chlorhexidine Gluconate (Hibiclens For Decolonization -) 1 applic TP HS [facility] Last Admin: 10/06/18 21:39 Dose: 1 applic Diltiazem HCl (Cardizem Injection -) 10 mg IVPUSH Q4H PRN PRN Reason: TACHYCARDIA Heparin Sodium (Porcine) (Heparin -) 1,000 unit IVPUSH PRN PRN PRN Reason: Heparin Heparin Sodium (Porcine) (Heparin -) 5,000 unit IVPUSH PRN PRN PRN Reason: Heparin Meropenem 1 gm/ Dextrose 100 mls @ 200 mls/hr IVPB Q8H-IV [facility] Last Admin: 10/07/18 10:44 Dose: 200 mls/hr Dextrose (D5w -) 1,000 mls @ 150 mls/hr IV ASDIR [facility] Last Admin: 10/07/18 10:52 Dose: 150 mls/hr Heparin Sodium/Dextrose (Heparin Infusion -) 25,000 units in 500 mls @ 20 mls/ hr IVPB TITR [facility]; Protocol Levothyroxine Sodium (Synthroid -) 100 mcg PO DAILY@0700 [facility] Last Admin: 10/07/18 07:00 Dose: 100 mcg [place] Carbonate (Eskalith -) 300 mg PO DAILY [facility] Last Admin: 10/07/18 10:44 Dose: 300 mg Metoprolol Tartrate (Lopressor -) 50 mg PO TID [facility] Last Admin: 10/07/18 14:24 Dose: 50 mg Mupirocin (Bactroban Ointment (For Decolonization) -) 1 applic NS BID [facility] Stop: 10/07/18 21:59 Last Admin: 10/07/18 10:30 Dose: 1 applic Ranitidine HCl (Zantac -) 150 mg PO BID [facility] Last Admin: 10/07/18 10:44 Dose: 150 mg Vancomycin HCl (Vancomycin (Pre-Docked)) 1,000 mg IVPB Q24H [facility] Last Admin: 10/07/18 13:00 Dose: 1,000 mg - Objective Vital Signs: Vital Signs Temperature 97.4 F L 10/07/18 14:00 Pulse Rate 125 H 10/07/18 14:00 Respiratory Rate 22 H 10/07/18 14:00 Blood Pressure 155/111 H 10/07/18 14:00 O2 Sat by Pulse Oximetry (%) 96 10/06/18 19:47 Constitutional: Yes: Mild Distress Cardiovascular: Yes: Regular Rate and Rhythm Respiratory: Yes: Regular, CTA Bilaterally Gastrointestinal: Yes: Soft, Other (colostomy fnining) Musculoskeletal: Yes: WNL Extremities: Yes: WNL Neurological: Yes: Confusion Psychiatric: Yes: Other Labs: CBC, BMP 10/07/18 05:15 10/07/18 05:15 INR, PTT INR 1.08 (0.83-1.09) 10/03/18 05:30 - ....Imaging Chest X-ray: Report Reviewed, Image Reviewed Assessment/Plan Assessment/Plan - Problems (1) Diverticulitis of large intestine with perforation without abscess or bleeding Code(s): K57.20 - DVTRCLI OF LG INT W PERFORATION AND ABSCESS W/O BLEEDING (2) Suprapubic pain Code(s): R10.2 - PELVIC AND PERINEAL PAIN (3) Constipation Code(s): K59.00 - CONSTIPATION, UNSPECIFIED Qualifiers: Constipation type: other constipation type Qualified Code(s): K59.09 - Other constipation (4) Paroxysmal atrial fibrillation Code(s): I48.0 - PAROXYSMAL ATRIAL FIBRILLATION (5) Bipolar disorder Code(s): F31.9 - BIPOLAR DISORDER, UNSPECIFIED Qualifiers: Active/Remission status: in remission of unspecified degree Qualified Code( s): F31.70 - Bipolar disorder, currently in remission, most recent episode unspecified (6) Hypertension Code(s): I10 - ESSENTIAL (PRIMARY) HYPERTENSION Qualifiers: Hypertension type: essential hypertension Qualified Code(s): I10 - Essential (primary) hypertension (7) Hyperlipidemia Code(s): E78.5 - HYPERLIPIDEMIA, UNSPECIFIED Qualifiers: Hyperlipidemia type: unspecified Qualified Code(s): E78.5 - Hyperlipidemia , unspecified (8) Hypothyroidism Code(s): E03.9 - HYPOTHYROIDISM, UNSPECIFIED Qualifiers: Hypothyroidism type: unspecified Qualified Code(s): E03.9 - Hypothyroidism , unspecified (9) Hiatal hernia without gangrene or obstruction Code(s): K44.9 - DIAPHRAGMATIC HERNIA WITHOUT OBSTRUCTION OR GANGRENE plan hydration continue meropenam monitor colostomy output monitor mental status rest as per the team
--- NOTE | 2018-10-07 15:22 | EKG ---
Test Reason : Blood Pressure : / mmHG Vent. Rate : 073 BPM Atrial Rate : 073 BPM P-R Int : 140 ms QRS Dur : 074 ms QT Int : 408 ms P-R-T Axes : 057 047 054 degrees QTc Int : 449 ms NORMAL SINUS RHYTHM NORMAL ECG WHEN COMPARED WITH ECG OF 29-SEP-2018 10:42, PREMATURE ATRIAL COMPLEXES ARE NO LONGER PRESENT VENT. RATE HAS DECREASED BY 37 BPM VENT. RATE HAS DECREASED T WAVE VARIATION Confirmed by TRISTON SAENZ MD ([id number]) on 10/07/2018 3:21:43 PM Referred By: DELIA DUMONT Confirmed By:TRISTON SAENZ MD
[2018-10-07 21:11] LABS: ANION GAP 7 MMOL/L (8-16); BLOOD UREA NITROGEN 24 mg/dL (7-18); CALCIUM 7.4 mg/dL (8.5-10.1); CHLORIDE 118 mmol/L (98-107); CO2 27 mmol/L (21-32); CREATININE 1.4 mg/dL (0.55-1.3); GLUCOSE,RANDOM 110 mg/dL (74-106); POTASSIUM 3.3 mmol/L (3.5-5.1); SODIUM 152 mmol/L (136-145)
[2018-10-07 21:27] LABS: INR 1.22 (0.83-1.09); PROTHROMBIN TIME (PATIENT) 14.4 SEC (9.7-13.0)
[2018-10-07 21:30] LABS: ACTIVATED PTT 28.4 SECONDS (25.2-36.5)
[2018-10-08] MEDS ORDERED: PT OWN MED DRAWER 7, Y5N ONE ×3 (03:38→17:18)
[2018-10-08] MEDS: MEROPENEM 1 GM in DEXTROSE 5%-WATER 100 ML IVPB SCH ×3 (03:42→18:00)
[2018-10-08] MEDS: CHLORHEXIDINE GLUCONATE 4% CLEANSER FOR DECOLONIZATION TP SCH ×2 (03:43→22:00)
[2018-10-08 05:35] LABS: BASO % 0.2 % (0-2.0); HEMATOCRIT 32.8 % (32.4-45.2); HEMOGLOBIN 10.4 GM/dL (10.7-15.3); LYMPH % 5.3 % (8-40); MCH 26.2 pg (25.7-33.7); MCHC 31.8 g/dl (32.0-36.0); MEAN CELL VOLUME 82.4 fl (80-96); MEAN PLT VOLUME 8.3 fl (7.5-11.1); MONO % 4.1 % (3.8-10.2); NEUT % 88.4 % (42.8-82.8); PLATELET COUNT 283 K/MM3 (134-434); RBC 3.98 M/mm3 (3.60-5.2); RDW 13.5 % (11.6-15.6); WHITE BLOOD COUNT 21.5 K/mm3 (4.0-10.0)
[2018-10-08 06:13] LABS: ALBUMIN 1.7 g/dl (3.4-5.0); ALK PHOS 92 U/L (45-117); ANION GAP 8 MMOL/L (8-16); BILIRUBIN,TOTAL 0.4 mg/dL (0.2-1); BLOOD UREA NITROGEN 22 mg/dL (7-18); CALCIUM 7.5 mg/dL (8.5-10.1); CHLORIDE 120 mmol/L (98-107); CO2 27 mmol/L (21-32); CREATININE 1.3 mg/dL (0.55-1.3); GLUCOSE,RANDOM 107 mg/dL (74-106); MAGNESIUM 1.8 mg/dL (1.8-2.4); PHOSPHOROUS 2.7 mg/dL (2.5-4.9); POTASSIUM 3.5 mmol/L (3.5-5.1); SGOT/AST 25 U/L (15-37); SGPT/ALT 20 U/L (13-61); SODIUM 154 mmol/L (136-145); TOT PROT 4.4 g/dl (6.4-8.2)
[2018-10-08] MEDS: LEVOTHYROXINE NA 100 MCG TABLET (FP) PO SCH (06:14)
[2018-10-08] MEDS: METOPROLOL TARTRATE 50 MG TABLET (FP) PO SCH ×2 (06:14→13:22)
--- NOTE | 2018-10-08 07:09 | PN ---
Physical Exam: SUBJECTIVE: Patient seen and examined at bedside. No acute events overnight. Has no symptomatic complaints. Pt still not oriented and says she "won't go outside today to run her errands." Denies f/c, chest pain, sob, abd pain. Tolerating PO intake. OBJECTIVE: Vital Signs Period Temp Pulse Resp BP Sys/Choi Pulse Ox Last 24 Hr 97.4 F-98.6 F 62-128 14-22 111-162/55-109 94-94 GENERAL: Middle aged female, sitting comfortably in bed, awake, alert, and not oriented to time, place, person, in no acute distress. HEAD: Normal with no signs of trauma. EYES: EOM intact, no pallor or icterus. ENT: Ears normal, dry mucous membranes. NECK: Supple. LUNGS: Breath sounds equal, clear to auscultation bilaterally, no wheezes, no crackles, no accessory muscle use. HEART: Regular rate and rhythm, S1, S2 without murmur. ABDOMEN: Ostomy bag in place-functioning, dressing placed on the surgical site- clean, Soft, nontender, nondistended, normoactive bowel sounds. EXTREMITIES: 2+ pulses, warm, well-perfused, no edema. NEUROLOGICAL: Confused. No facial droop. Normal speech, gait not observed. PSYCH: Normal mood, normal affect. SKIN: Warm, dry, normal turgor, no rashes or lesions noted CBCD WBC 21.5 K/mm3 (4.0-10.0) H 10/08/18 05:15 RBC 3.98 M/mm3 (3.60-5.2) 10/08/18 05:15 Hgb 10.4 GM/dL (10.7-15.3) L 10/08/18 05:15 Hct 32.8 % (32.4-45.2) 10/08/18 05:15 MCV 82.4 fl (80-96) 10/08/18 05:15 MCHC 31.8 g/dl (32.0-36.0) L 10/08/18 05:15 RDW 13.5 % (11.6-15.6) 10/08/18 05:15 Plt Count 283 K/MM3 (134-434) 10/08/18 05:15 MPV 8.3 fl (7.5-11.1) 10/08/18 05:15 CMP Sodium 154 mmol/L (136-145) H 10/08/18 05:15 Potassium 3.5 mmol/L (3.5-5.1) 10/08/18 05:15 Chloride 120 mmol/L (98-107) H 10/08/18 05:15 Carbon Dioxide 27 mmol/L (21-32) 10/08/18 05:15 Anion Gap 8 MMOL/L (8-16) 10/08/18 05:15 BUN 22 mg/dL (7-18) H 10/08/18 05:15 Creatinine 1.3 mg/dL (0.55-1.3) 10/08/18 05:15 Creat Clearance w eGFR 40.61 (>60) 10/08/18 05:15 Calcium 7.5 mg/dL (8.5-10.1) L 10/08/18 05:15 Total Bilirubin 0.4 mg/dL (0.2-1) 10/08/18 05:15 AST 25 U/L (15-37) 10/08/18 05:15 ALT 20 U/L (13-61) 10/08/18 05:15 Alkaline Phosphatase 92 U/L (45-117) 10/08/18 05:15 Total Protein 4.4 g/dl (6.4-8.2) L 10/08/18 05:15 Albumin 1.7 g/dl (3.4-5.0) L 10/08/18 05:15 Active Medications Acetaminophen (Ofirmev Injection -) 1,000 mg IVPB Q6H PRN PRN Reason: PAIN LEVEL 1-5 Last Admin: 10/06/18 21:39 Dose: 1,000 mg Aripiprazole (Abilify) 5 mg PO DAILY [facility] Chlorhexidine Gluconate (Hibiclens For Decolonization -) 1 applic TP HS [facility] Last Admin: 10/08/18 03:43 Dose: 1 applic Diltiazem HCl (Cardizem Injection -) 10 mg IVPUSH Q4H PRN PRN Reason: TACHYCARDIA Heparin Sodium (Porcine) (Heparin -) 1,000 unit IVPUSH PRN PRN PRN Reason: Heparin Heparin Sodium (Porcine) (Heparin -) 5,000 unit IVPUSH PRN PRN PRN Reason: Heparin Meropenem 1 gm/ Dextrose 100 mls @ 200 mls/hr IVPB Q8H-IV [facility] Last Admin: 10/08/18 03:42 Dose: 200 mls/hr Dextrose (D5w -) 1,000 mls @ 150 mls/hr IV ASDIR [facility] Last Admin: 10/07/18 10:52 Dose: 150 mls/hr Heparin Sodium/Dextrose (Heparin Infusion -) 25,000 units in 500 mls @ 20 mls/ hr IVPB TITR [facility]; Protocol Last Titration: 10/08/18 03:15 Dose: 1,000 units/hr, 20 mls/hr Levothyroxine Sodium (Synthroid -) 100 mcg PO DAILY@0700 [facility] Last Admin: 10/08/18 06:14 Dose: 100 mcg [place] Carbonate (Eskalith -) 300 mg PO DAILY [facility] Last Admin: 10/07/18 10:44 Dose: 300 mg Metoprolol Tartrate (Lopressor -) 50 mg PO TID [facility] Last Admin: 10/08/18 06:14 Dose: 50 mg Ranitidine HCl (Zantac -) 150 mg PO BID [facility] Last Admin: 10/07/18 21:12 Dose: 150 mg Vancomycin HCl (Vancomycin (Pre-Docked)) 1,000 mg IVPB Q24H [facility] Last Admin: 10/07/18 13:00 Dose: 1,000 mg ASSESSMENT/PLAN: Patient is a 67 year old female with significant past medical history of cholecystitis, chronic constipation, bipolar, pneumoperitoneum s/p ex lap, sigmoid colectomy with colostomy, POD #6 (10/02/18) admitted to the ICU for post -op care. GI #Sigmoid diverticulitis s/p (Sidra's procedure) sigmoid colectomy w/ colostomy, POD #6 -Ostomy functioning, +brown stool in stoma -Continue IV Meropenem and IV Vanc -Blood culture/Urine cultures negative -Body fluid culture: Prevotella (10/02) Neurology #Altered mental status 2/2 suspected hypernatremia -Continue to treat hypernatremia -Avoid narcotics Renal #Na 152 > 154 Free Water deficit: 4.5 L. AMS could be due to Hypernatremia -D5W @ 200 mls/hr. She has been drinking PO liquid. -Sosm 337, Uosm 224. BMP q12H. -Per nephro, suspect underlying DI given h/o lithium use, polyuria, low Uosm in relation to Sosm. [place] d/c'd. Will add HCTZ to introduce some mild hypovolemia in DCT in order to stimulate PCT to increase salt and water reabsorption -Encourage PO hydration Pulmonary -Extubated last week -Duonebs QID Cardiology #New onset A. fib with RVR-now rate is controlled and in Sinus. -PO Metoprolol 50mg TID with Cardizem 10mg IV push Q4H PRN -switch to Eliquis 5 mg BID Endocrinology #Hypothyroidism -PO Synthroid 100 mcg Psych #Bipolar disorder -Pt is stable, but having delusions, likely 2/2 hypernatremia -Spoke with psych, will dc [place] and start Abilify 5 PO QD FEN -IV D5W @ 200 mls/hr -Electrolytes to be repeated in AM -Sodium-controlled diet, no caffeine Prophylaxis -For GI: Ranitidine 150 mg PO BID -For DVT: Switch to Eliquis 5 BID Dispo: transfer to tele Visit type - Emergency Visit Emergency Visit: Yes ED Registration Date: 09/28/18 Care time: The patient presented to the Emergency Department on the above date and was hospitalized for further evaluation of their emergent condition. - New Patient This patient is new to me today: No - Critical Care Critical Care patient: Yes Total Critical Care Time (in minutes): 40 Critical Care Statement: The care of this patient involved high complexity decision making to prevent further life threatening deterioration of the patient 's condition and/or to evaluate & treat vital organ system(s) failure or risk of failure.
--- NOTE | 2018-10-08 08:03 | PN ---
Physical Exam: SUBJECTIVE: Patient seen and examined at bedside- patient is still very altered ; she thinks that she is in [facility] however is oriented to self and time. she is not in any pain; she denies any CP/SOB/N/V fevers or chills OBJECTIVE: Vital Signs Period Temp Pulse Resp BP Sys/Choi Pulse Ox Last 24 Hr 97.4 F-98.6 F 62-128 14-22 111-162/55-109 94-94 GENERAL: The patient is awake, alert, however altered; oriented to self and time , resting comfortably not tachypneic EYES: no scleral icterus. NECK: no JVD, no lymphadenopathy LUNGS: patient refusing back auscultation but anteriorly lungs CTA B/L; no rales , rhonchi or wheezing. HEART: irregularly irregular, S1, S2 without murmur, rub or gallop. ABDOMEN: Soft, nondistentended hypoactive bowel sounds; colostomy in place with dressing c/d/i; non-tender upon palpation; no rebound or guarding EXTREMITIES: 2+ pulses, warm, well-perfused, no edema. NEUROLOGICAL: Cranial nerves II through XII grossly intact. Normal speech, gait not observed. PSYCH: altered SKIN: Warm, dry, normal turgor, no rashes or lesions noted Laboratory Results - last 24 hr 10/07/18 10/07/18 10/08/18 20:00 21:00 03:15 WBC RBC Hgb Hct MCV MCH MCHC RDW Plt Count MPV Absolute Neuts (auto) Neutrophils % Lymphocytes % Monocytes % Eosinophils % Basophils % Nucleated RBC % PT with INR 14.40 H INR 1.22 H PTT (Actin FS) 28.4 57.0 H Sodium 152 H Potassium 3.3 L Chloride 118 H Carbon Dioxide 27 Anion Gap 7 L BUN 24 H Creatinine 1.4 H Creat Clearance w eGFR 37.28 Random Glucose 110 H Calcium 7.4 L Phosphorus Magnesium Total Bilirubin AST ALT Alkaline Phosphatase Total Protein Albumin 10/08/18 10/08/18 05:15 05:15 WBC 21.5 H RBC 3.98 Hgb 10.4 L Hct 32.8 MCV 82.4 MCH 26.2 MCHC 31.8 L RDW 13.5 Plt Count 283 MPV 8.3 Absolute Neuts (auto) 19.0 H Neutrophils % 88.4 H Lymphocytes % 5.3 L Monocytes % 4.1 Eosinophils % 2.0 D Basophils % 0.2 Nucleated RBC % 0 PT with INR INR PTT (Actin FS) Sodium 154 H Potassium 3.5 Chloride 120 H Carbon Dioxide 27 Anion Gap 8 BUN 22 H Creatinine 1.3 Creat Clearance w eGFR 40.61 Random Glucose 107 H Calcium 7.5 L Phosphorus 2.7 Magnesium 1.8 Total Bilirubin 0.4 AST 25 ALT 20 Alkaline Phosphatase 92 Total Protein 4.4 L Albumin 1.7 L Active Medications Generic Name Dose Route Start Last Admin Trade Name Freq PRN Reason Stop Dose Admin Acetaminophen 1,000 mg 10/04/18 07:11 10/06/18 21:39 Ofirmev Injection - IVPB 1,000 mg Q6H PRN Administration PAIN LEVEL 1-5 Aripiprazole 5 mg 10/08/18 10:00 Abilify PO DAILY [facility] Chlorhexidine Gluconate 1 applic 10/02/18 22:00 10/08/18 03:43 Hibiclens For Decolonization - TP 1 applic HS [facility] Administration Diltiazem HCl 10 mg 10/02/18 20:15 Cardizem Injection - IVPUSH Q4H PRN TACHYCARDIA Heparin Sodium (Porcine) 1,000 unit 10/07/18 14:56 Heparin - IVPUSH PRN PRN Heparin Heparin Sodium (Porcine) 5,000 unit 10/07/18 14:52 Heparin - IVPUSH PRN PRN Heparin Meropenem 1 gm/ Dextrose 100 mls @ 200 mls/hr 10/03/18 02:00 10/08/18 03:42 IVPB 200 mls/hr Q8H-IV [facility] Administration Dextrose 1,000 mls @ 150 mls/hr 10/06/18 10:02 10/07/18 10:52 D5w - IV 150 mls/hr ASDIR [facility] Administration Heparin Sodium/Dextrose 25,000 units in 500 mls @ 20 mls/hr 10/07/18 15:00 03:15 Heparin Infusion - IVPB 1,000 units/hr TITR [facility] 20 mls/hr Titration Protocol 1,000 UNITS/HR Levothyroxine Sodium 100 mcg 10/07/18 07:00 10/08/18 06:14 Synthroid - PO 100 mcg DAILY@0700 [facility] Administration [place] Carbonate 300 mg 10/03/18 10:00 10/07/18 10:44 Eskalith - PO 300 mg DAILY [facility] Administration Metoprolol Tartrate 50 mg 10/06/18 22:00 10/08/18 06:14 Lopressor - PO 50 mg TID [facility] Administration Ranitidine HCl 150 mg 10/06/18 22:00 10/07/18 21:12 Zantac - PO 150 mg BID [facility] Administration Vancomycin HCl 1,000 mg 10/05/18 13:15 10/07/18 13:00 Vancomycin (Pre-Docked) IVPB 1,000 mg Q24H [facility] Administration ASSESSMENT/PLAN: 67 y/o female with PMH of cholecystitis and bipolar disorder presented to the ED with abdominal pain and constipation since found to have a 5x4.3x3.4 oval shaped structure with air possible representing an inflamed diverticulum vs. a contained perforation #POD #6 ex-lap and small bowel resection -patient underwent ex-lap with small bowel resection and ostomy creation -peritoneal cx sent growing prevotella -meropenem day 6, vancomycin day 4; ID on board vanc trough for today before 4th dose -f/u surgery recs -monitor hemodynamics -D5@ 2000mls/hr -monitor WBC and for signs of infection as WBC is increasing -possible need for re-imaging if no further improvement in WBC -monitor ostomy output -currently in ICU -IV tylenol for pain #New onset Afib -patient has been in sinus overnight however with HR in 70's-80's -metoprolol tartrate 50 TID with lopressor 5mg PRN -cardizem 10 mg PRN -starting patient on eliquis 5 BID today and discontinuing heparin -cardio on board #Acute metabolic encephalopathy possibly 2/2 hypernatremia patient has been hypernatremic with altered mental status however, sodium level is trending down -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 Zarate increasing fluids to D5@200mls and adding thiazide diuretic -BMP q12 #Bipolar Disorder -psych saw patient this AM -can likely hold lithium given patients hypernatremia and AMS and start abilify 5mg daily #Hypothyroidism -c/w synthroid #MONIKA -likely 2/2 sepsis and injury -nephro on board -isotonic fluids -BMP q12 F/E/N D5 @200mls/hr monitor electrolytes; BMP 12qhrs liquids DVT PPX: Heparin drip Problem List - Problems (1) Abdominal pain Code(s): R10.9 - UNSPECIFIED ABDOMINAL PAIN Qualifiers: Abdominal location: unspecified location Qualified Code(s): R10.9 - Unspecified abdominal pain (2) Abnormal CT scan, sigmoid colon Code(s): R93.3 - ABNORMAL FINDINGS ON DX IMAGING OF PRT DIGESTIVE TRACT (3) Bipolar disorder Code(s): F31.9 - BIPOLAR DISORDER, UNSPECIFIED Qualifiers: Active/Remission status: in remission of unspecified degree Qualified Code( s): F31.70 - Bipolar disorder, currently in remission, most recent episode unspecified Visit type - Emergency Visit Emergency Visit: Yes ED Registration Date: 09/28/18 Care time: The patient presented to the Emergency Department on the above date and was hospitalized for further evaluation of their emergent condition. - New Patient This patient is new to me today: No - Critical Care Critical Care patient: No
--- NOTE | 2018-10-08 08:16 | PN ---
Progress Note (short form) - Note Progress Note: Chief Complaint: Events noted, notes reviewed, remains agitated, confused with intermittent hallucinations, still exhibiting paranoid behavior, denies any chest pain or dyspnea, remains in sinus rhythm History of Present Illness: Seen and examined in the ICU. Events noted, notes reviewed, remains agitated, confused with intermittent hallucinations, still exhibiting paranoid behavior, denies any chest pain or dyspnea, remains in sinus rhythm Echocardiography dated 09/30/2018 revealed normal LV size and function with LVEF 60-65%, mildly impaired LV compliance, normal RV function, mild TR and trace-mild MR - Current Medication List Current Medications Acetaminophen (Ofirmev Injection -) 1,000 mg IVPB Q6H PRN PRN Reason: PAIN LEVEL 1-5 Last Admin: 10/06/18 21:39 Dose: 1,000 mg Aripiprazole (Abilify) 5 mg PO DAILY [facility] Chlorhexidine Gluconate (Hibiclens For Decolonization -) 1 applic TP HS [facility] Last Admin: 10/08/18 03:43 Dose: 1 applic Diltiazem HCl (Cardizem Injection -) 10 mg IVPUSH Q4H PRN PRN Reason: TACHYCARDIA Heparin Sodium (Porcine) (Heparin -) 1,000 unit IVPUSH PRN PRN PRN Reason: Heparin Heparin Sodium (Porcine) (Heparin -) 5,000 unit IVPUSH PRN PRN PRN Reason: Heparin Meropenem 1 gm/ Dextrose 100 mls @ 200 mls/hr IVPB Q8H-IV [facility] Last Admin: 10/08/18 03:42 Dose: 200 mls/hr Dextrose (D5w -) 1,000 mls @ 150 mls/hr IV ASDIR [facility] Last Admin: 10/07/18 10:52 Dose: 150 mls/hr Heparin Sodium/Dextrose (Heparin Infusion -) 25,000 units in 500 mls @ 20 mls/ hr IVPB TITR [facility]; Protocol Last Titration: 10/08/18 03:15 Dose: 1,000 units/hr, 20 mls/hr Levothyroxine Sodium (Synthroid -) 100 mcg PO DAILY@0700 [facility] Last Admin: 10/08/18 06:14 Dose: 100 mcg [place] Carbonate (Eskalith -) 300 mg PO DAILY [facility] Last Admin: 10/07/18 10:44 Dose: 300 mg Metoprolol Tartrate (Lopressor -) 50 mg PO TID [facility] Last Admin: 10/08/18 06:14 Dose: 50 mg Ranitidine HCl (Zantac -) 150 mg PO BID [facility] Last Admin: 10/07/18 21:12 Dose: 150 mg Vancomycin HCl (Vancomycin (Pre-Docked)) 1,000 mg IVPB Q24H [facility] Last Admin: 10/07/18 13:00 Dose: 1,000 mg - Review of Systems Cardiovascular: As noted above Respiratory: denies: Cough or Sputum Production Gastrointestinal: denies: Nausea, Vomiting, Diarrhea, Constipation or Abdominal Pain Musculoskeletal: No symptoms reported Neurological: No symptoms reported - Objective Vital Signs: Last Vital Signs Temp Pulse Resp BP Pulse Ox 98.5 F 72 22 H 138/81 94 L 10/08/18 02:00 10/08/18 06:00 10/08/18 06:00 10/08/18 06:00 10/07/18 20:22 Intake & Output 10/05/18 10/06/18 10/07/18 10/08/18 23:59 23:59 23:59 23:59 Intake Total 6865 6590 4830 100 Output Total 4650 5300 4600 2400 Balance 2215 1290 230 -2300 Weight 166 lb 10.711 oz 163 lb 9 oz 156 lb 4 oz Neck: Supple Negative JVD Cardiovascular: S1 S2 Regular Rate and Rhythm Respiratory: Diminished breath sounds Gastrointestinal: Soft Benign hypoactive Bowel Sounds Ext: Negative Edema Labs: CBC, BMP 10/08/18 05:15 10/08/18 05:15 Hepatic Panel Total Bilirubin 0.4 mg/dL (0.2-1) 10/08/18 05:15 Direct Bilirubin 0.1 mg/dL (0.0-0.2) 10/02/18 05:30 AST 25 U/L (15-37) 10/08/18 05:15 ALT 20 U/L (13-61) 10/08/18 05:15 Alkaline Phosphatase 92 U/L (45-117) 10/08/18 05:15 Albumin 1.7 g/dl (3.4-5.0) L 10/08/18 05:15 Assessment/Plan ASSESSMENT: 1. POD#6 sigmoidectomy with colostomy (Sidra's procedure) for sigmoid stercoral perforation with peritonitis 2. Paroxysmal atrial fibrillation [id number] score of 3 currently on A/C/ Heparin 3. Diastolic LV dysfunction with clinical class 0 NYHA classification LV failure 4. Hypertension 5. Hypothyroidism 6. Bipolar disorder, paranoid behavior 7. Acute on CKD 8. Hypernatremia, persistent PLAN: 1. Continue A/C but initiate Eliquis if not contraindicated, D/C Heparin 2. Continue PO Lopressor 3. Continue IV Cardizem for rate control, on prn bases 4. Antibiotic as per the primary team 5. IV hydration as per the primary team with close monitoring of renal function and electrolytes, correction of Hypernatremia Rene Yanes MD
[2018-10-08 08:58] LABS: INR 1.32 (0.83-1.09); PROTHROMBIN TIME (PATIENT) 15.6 SEC (9.7-13.0)
[2018-10-08] MEDS: RANITIDINE HCL 150 MG TABLET (FP) PO SCH ×2 (09:55→22:00)
[2018-10-08] MEDS: ARIPiprazole 5 MG TABLET (FP) PO SCH (09:55)
[2018-10-08] MEDS: APIXABAN 5 MG TABLET PO SCH ×2 (09:58→22:00)
[2018-10-08 12:07] LABS: ACANTHOCYTES 0; ANISOCYTOSIS 0; HELMET CELLS 0; HOWELL-JOLLY BODIES 0; MACROCYTOSIS 0; OVALOCYTE 0; PLATELET ESTIMATE NORMAL; ROULEAU 0; SICKELED CELLS 0; TARGET CELLS 0; TEAR DROP CELLS 0; TOXIC GRANULATION 0
--- NOTE | 2018-10-08 12:24 | PN ---
Teaching Attending Note Name of Resident: Valeria Fox ATTENDING PHYSICIAN STATEMENT I saw and evaluated the patient. I reviewed the resident's note and discussed the case with the resident. I agree with the resident's findings and plan as documented. SUBJECTIVE: Pt seen and examined in the ICU. No acute events overnight. Pain controlled. No shortness of breath or chest pain. OBJECTIVE: Vital Signs Period Temp Pulse Resp BP Sys/Choi Pulse Ox Last 24 Hr 97.4 F-98.6 F 62-110 16-29 111-162/55-109 94-94 Intake & Output 10/05/18 10/06/18 10/07/18 10/08/18 23:59 23:59 23:59 23:59 Intake Total 6865 6590 4830 100 Output Total 4650 5300 4400 2400 Balance 2215 1290 430 -2300 Weight 75.6 kg 74.191 kg 70.874 kg Gen: NAD in chair Heart: RRR Lung: decreased breath sounds at the bases Abd: soft, nontender, +ostomy with stool output Ext: no edema CBC, BMP 10/08/18 05:15 10/08/18 05:15 Active Medications Acetaminophen (Ofirmev Injection -) 1,000 mg IVPB Q6H PRN PRN Reason: PAIN LEVEL 1-5 Last Admin: 10/06/18 21:39 Dose: 1,000 mg Apixaban (Eliquis -) 5 mg PO BID [facility] Last Admin: 10/08/18 09:58 Dose: 5 mg Aripiprazole (Abilify) 5 mg PO DAILY [facility] Last Admin: 10/08/18 09:55 Dose: 5 mg Chlorhexidine Gluconate (Hibiclens For Decolonization -) 1 applic TP HS [facility] Last Admin: 10/08/18 03:43 Dose: 1 applic Diltiazem HCl (Cardizem Injection -) 10 mg IVPUSH Q4H PRN PRN Reason: TACHYCARDIA Meropenem 1 gm/ Dextrose 100 mls @ 200 mls/hr IVPB Q8H-IV [facility] Last Admin: 10/08/18 09:56 Dose: 200 mls/hr Dextrose (D5w -) 1,000 mls @ 150 mls/hr IV ASDIR [facility] Last Admin: 10/07/18 10:52 Dose: 150 mls/hr Levothyroxine Sodium (Synthroid -) 100 mcg PO DAILY@0700 [facility] Last Admin: 10/08/18 06:14 Dose: 100 mcg Metoprolol Tartrate (Lopressor -) 50 mg PO TID [facility] Last Admin: 10/08/18 06:14 Dose: 50 mg Ranitidine HCl (Zantac -) 150 mg PO BID [facility] Last Admin: 10/08/18 09:55 Dose: 150 mg Vancomycin HCl (Vancomycin (Pre-Docked)) 1,000 mg IVPB Q24H [facility] Last Admin: 10/07/18 13:00 Dose: 1,000 mg ASSESSMENT AND PLAN: Perforated Sigmoid Colon/Peritonitis s/p Sigmoidectomy/Colostomy Paroxysmal Atrial Fibrillation LV Diastolic Dysfunction Acute on Chronic Renal Failure Hypernatremia - r/o Diabetes Insipidus HTN Hypothyroidism Bipolar Disorder on [place] - continue antibiotics - IVF per renal - monitor urine output, creatinine, lytes - rate controlled - resumed anticoagulation - PO as tolerated - DVT prophylaxis - can monitor on telemetry
[2018-10-08] MEDS ORDERED: DEXTROSE 5%-WATER - 1,000 ML IV SCH (12:50)
--- NOTE | 2018-10-08 12:59 | PN ---
Progress Note (short form) - Note Progress Note: Renal follow up for MONIKA Pt seen and examined in the ICU pt sleeping, no overnight events remains polyuric at this time Vital Signs Temperature 98.3 F 10/08/18 10:00 Pulse Rate 96 H 10/08/18 12:00 Respiratory Rate 29 H 10/08/18 12:00 Blood Pressure 119/85 10/08/18 12:00 O2 Sat by Pulse Oximetry (%) 94 L 10/08/18 09:00 Intake & Output 10/05/18 10/06/18 10/07/18 10/08/18 23:59 23:59 23:59 23:59 Intake Total 6865 6590 4830 100 Output Total 4650 5300 4400 2400 Balance 2215 1290 430 -2300 Weight 75.6 kg 74.191 kg 70.874 kg NAD NGT in place neck supple tachycardic dec Bs, no rales no LE edema CBC, BMP 10/08/18 05:15 10/08/18 05:15 Current Medications Acetaminophen (Ofirmev Injection -) 1,000 mg IVPB Q6H PRN PRN Reason: PAIN LEVEL 1-5 Last Admin: 10/06/18 21:39 Dose: 1,000 mg Apixaban (Eliquis -) 5 mg PO BID [facility] Last Admin: 10/08/18 09:58 Dose: 5 mg Aripiprazole (Abilify) 5 mg PO DAILY [facility] Last Admin: 10/08/18 09:55 Dose: 5 mg Chlorhexidine Gluconate (Hibiclens For Decolonization -) 1 applic TP HS [facility] Last Admin: 10/08/18 03:43 Dose: 1 applic Diltiazem HCl (Cardizem Injection -) 10 mg IVPUSH Q4H PRN PRN Reason: TACHYCARDIA Hydrochlorothiazide (Hctz -) 25 mg PO ONCE ONE Stop: 10/08/18 12:51 Meropenem 1 gm/ Dextrose 100 mls @ 200 mls/hr IVPB Q8H-IV [facility] Last Admin: 10/08/18 09:56 Dose: 200 mls/hr Dextrose (D5w -) 1,000 mls @ 200 mls/hr IV ASDIR [facility] Levothyroxine Sodium (Synthroid -) 100 mcg PO DAILY@0700 [facility] Last Admin: 12/11/18 06:14 Dose: 100 mcg Metoprolol Tartrate (Lopressor -) 50 mg PO TID [facility] Last Admin: 10/08/18 06:14 Dose: 50 mg Ranitidine HCl (Zantac -) 150 mg PO BID [facility] Last Admin: 10/08/18 09:55 Dose: 150 mg Vancomycin HCl (Vancomycin (Pre-Docked)) 1,000 mg IVPB Q24H [facility] Last Admin: 10/07/18 13:00 Dose: 1,000 mg 67 year old woman with hx of bipolar disorder, cholecystitis who presented with constipation and lower abd pain and found to have acute diverticulosis and new Afib with subsequent development of ileus with MONIKA. 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 Will need to be maintained on a low salt diet at this time. Trend serum Na Q12h Increase D5W to 200cc per hour Sulaiman Zarate DO
[2018-10-08] MEDS: VANCOMYCIN 1 GM in D5W (PRE-DOCKED) 1,000 MG/250 ML IVPB SCH (13:25)
[2018-10-08] MEDS ORDERED: HYDROCHLOROTHIAZIDE 25 MG TABLET (FP) PO ONE (13:30)
[2018-10-08] MEDS: DEXTROSE 5%-WATER - 1,000 ML IV SCH (14:30)
--- NOTE | 2018-10-08 14:37 | PN ---
Teaching Attending Note Name of Resident: Yaima Baeza ATTENDING PHYSICIAN STATEMENT I saw and evaluated the patient. I reviewed the resident's note and discussed the case with the resident. I agree with the resident's findings and plan as documented. SUBJECTIVE:asymptomatic. denies CP, SOB, fever, chills, N/V/C/D OBJECTIVE: Last Vital Signs Temp Pulse Resp BP Pulse Ox 98.3 F 96 H 29 H 119/85 94 L 10/08/18 10:00 10/08/18 12:10/08/18 12:00 10/08/18 12:10/08/18 09:00 General NAD, A&O x1 (self only) CV S1 S2 RRR no murmur/rub/gallop Lungs CTA B/L no wheezing/rales/rhonchi Abdomen soft NT/ND + ostomy with liquid brown stool. surgical dressing in the center of the abdomen c/d/i ASSESSMENT AND PLAN: 67yo F wtih PMH cholecystitis and bipolar presented with abdominal pain and constipation for [address] + 5.4x4.3x3.4cm pocket concerning for large inflammed diverticulum vs contained perforation 1. Sepsis due to diverticulitis wuith localized perforation and prevotella peritonitis-s/p sigmoidectomy and colostomy 10/02. afebrile however leukocytosis trending up. tolerating clears. good output into ostomy. on Meropenem/vanco. monitor vanco level. further management per surgery. 2. Hypernatremia- suspected DI (was on lithium). check osm. free water deficit 3.5L,D5w increased to 200cc/h. monitor 3. New onset afib with RVR- currently NSR. controlled. on eliquis. 4. hypokalemia- replace in IVF 5. MONIKA- due to hypovolemia and sepsis. slowly improving. avoid nephrotoxic agents. 6. Acute metabolic encephalopathy- could be having ICU psychosis vs worsening from holding of her psychiatric medications. started on abilify. psych on board 7. DVT ppx- eliquis 8. stable for transfer to floors 9. spoke with son. all questions answered. agreeable to SNF placement when medically optimized The care of this patient involved high complexity decision making to prevent further life threatening deterioration of the patient's condition and/or to evaluate & treat vital organ system(s) failure or risk of failure. 40 minutes
[2018-10-08] MEDS: ACETAMINOPHEN 1000 MG/100 ML VIAL (NON FORMULARY) IVPB PRN (15:00)
--- NOTE | 2018-10-08 15:47 | PN ---
Progress Note, Physician History of Present Illness: stable tolerating po mental status improving - Current Medication List Current Medications: Active Medications Acetaminophen (Ofirmev Injection -) 1,000 mg IVPB Q6H PRN PRN Reason: PAIN LEVEL 1-5 Last Admin: 10/06/18 21:39 Dose: 1,000 mg Apixaban (Eliquis -) 5 mg PO BID [facility] Last Admin: 10/08/18 09:58 Dose: 5 mg Aripiprazole (Abilify) 5 mg PO DAILY [facility] Last Admin: 10/08/18 09:55 Dose: 5 mg Chlorhexidine Gluconate (Hibiclens For Decolonization -) 1 applic TP HS [facility] Last Admin: 10/08/18 03:43 Dose: 1 applic Diltiazem HCl (Cardizem Injection -) 10 mg IVPUSH Q4H PRN PRN Reason: TACHYCARDIA Meropenem 1 gm/ Dextrose 100 mls @ 200 mls/hr IVPB Q8H-IV [facility] Last Admin: 10/08/18 09:56 Dose: 200 mls/hr Dextrose (D5w -) 1,000 mls @ 200 mls/hr IV ASDIR [facility] Levothyroxine Sodium (Synthroid -) 100 mcg PO DAILY@0700 [facility] Last Admin: 10/08/18 06:14 Dose: 100 mcg Metoprolol Tartrate (Lopressor -) 50 mg PO TID [facility] Last Admin: 10/08/18 13:22 Dose: 50 mg Ranitidine HCl (Zantac -) 150 mg PO BID [facility] Last Admin: 10/08/18 09:55 Dose: 150 mg Vancomycin HCl (Vancomycin (Pre-Docked)) 1,000 mg IVPB Q24H [facility] Last Admin: 10/08/18 13:25 Dose: 1,000 mg - Objective Vital Signs: Vital Signs Temperature 97.8 F 10/08/18 14:00 Pulse Rate 86 10/08/18 14:00 Respiratory Rate 23 H 10/08/18 14:00 Blood Pressure 111/73 10/08/18 14:00 O2 Sat by Pulse Oximetry (%) 94 L 10/08/18 09:00 Constitutional: Yes: No Distress, Calm Cardiovascular: Yes: Regular Rate and Rhythm Respiratory: Yes: Regular, CTA Bilaterally Gastrointestinal: Yes: Normal Bowel Sounds, Soft, Other (colostomy in place fning) Musculoskeletal: Yes: WNL Extremities: Yes: Other Neurological: Yes: Alert, Oriented Psychiatric: Yes: Alert, Oriented Labs: CBC, BMP 10/08/18 05:15 10/08/18 05:15 INR, PTT INR 1.32 (0.83-1.09) H 10/08/18 05:15 Assessment/Plan Assessment/Plan - Problems (1) Diverticulitis of large intestine with perforation without abscess or bleeding Code(s): K57.20 - DVTRCLI OF LG INT W PERFORATION AND ABSCESS W/O BLEEDING (2) Suprapubic pain Code(s): R10.2 - PELVIC AND PERINEAL PAIN (3) Constipation Code(s): K59.00 - CONSTIPATION, UNSPECIFIED Qualifiers: Constipation type: other constipation type Qualified Code(s): K59.09 - Other constipation (4) Paroxysmal atrial fibrillation Code(s): I48.0 - PAROXYSMAL ATRIAL FIBRILLATION (5) Bipolar disorder Code(s): F31.9 - BIPOLAR DISORDER, UNSPECIFIED Qualifiers: Active/Remission status: in remission of unspecified degree Qualified Code( s): F31.70 - Bipolar disorder, currently in remission, most recent episode unspecified (6) Hypertension Code(s): I10 - ESSENTIAL (PRIMARY) HYPERTENSION Qualifiers: Hypertension type: essential hypertension Qualified Code(s): I10 - Essential (primary) hypertension (7) Hyperlipidemia Code(s): E78.5 - HYPERLIPIDEMIA, UNSPECIFIED Qualifiers: Hyperlipidemia type: unspecified Qualified Code(s): E78.5 - Hyperlipidemia , unspecified (8) Hypothyroidism Code(s): E03.9 - HYPOTHYROIDISM, UNSPECIFIED Qualifiers: Hypothyroidism type: unspecified Qualified Code(s): E03.9 - Hypothyroidism , unspecified (9) Hiatal hernia without gangrene or obstruction Code(s): K44.9 - DIAPHRAGMATIC HERNIA WITHOUT OBSTRUCTION OR GANGRENE plan hydration continue meropenam monitor colostomy output monitor mental status rest as per the team
[2018-10-08 16:55] LABS: ANION GAP 9 MMOL/L (8-16); BLOOD UREA NITROGEN 19 mg/dL (7-18); CALCIUM 7.4 mg/dL (8.5-10.1); CHLORIDE 113 mmol/L (98-107); CO2 26 mmol/L (21-32); CREATININE 1.2 mg/dL (0.55-1.3); GLUCOSE,RANDOM 109 mg/dL (74-106); POTASSIUM 3.4 mmol/L (3.5-5.1); SODIUM 147 mmol/L (136-145)
--- NOTE | 2018-10-08 17:30 | PN ---
Progress Note, Physician History of Present Illness: s/p Sidra's procedure for OR findings of stercoral perforation with peritonitis abx per ID pt seen and examined in bed, was sitting up in chair earlier she is sleepy and still confused, though seems a little less so tolerating clears, drinking water, eating jello - still on D5W as per renal thiazide given today colostomy with soft/muddy brown output, one stool ball in bag - base leaked stool medially and laterally, changed with nurse Miguel with very light/clear urine, copious output lithium stopped, on abilify per psych diet was advanced today - Current Medication List Current Medications: Active Medications Acetaminophen (Ofirmev Injection -) 1,000 mg IVPB Q6H PRN PRN Reason: PAIN LEVEL 1-5 Last Admin: 10/06/18 21:39 Dose: 1,000 mg Apixaban (Eliquis -) 5 mg PO BID [facility] Last Admin: 10/08/18 09:58 Dose: 5 mg Aripiprazole (Abilify) 5 mg PO DAILY [facility] Last Admin: 10/08/18 09:55 Dose: 5 mg Chlorhexidine Gluconate (Hibiclens For Decolonization -) 1 applic TP HS [facility] Last Admin: 10/08/18 03:43 Dose: 1 applic Diltiazem HCl (Cardizem Injection -) 10 mg IVPUSH Q4H PRN PRN Reason: TACHYCARDIA Meropenem 1 gm/ Dextrose 100 mls @ 200 mls/hr IVPB Q8H-IV [facility] Last Admin: 10/08/18 09:56 Dose: 200 mls/hr Dextrose (D5w -) 1,000 mls @ 200 mls/hr IV ASDIR [facility] Levothyroxine Sodium (Synthroid -) 100 mcg PO DAILY@0700 [facility] Last Admin: 10/08/18 06:14 Dose: 100 mcg Metoprolol Tartrate (Lopressor -) 50 mg PO TID [facility] Last Admin: 10/08/18 13:22 Dose: 50 mg Ranitidine HCl (Zantac -) 150 mg PO BID [facility] Last Admin: 10/08/18 09:55 Dose: 150 mg Vancomycin HCl (Vancomycin (Pre-Docked)) 1,000 mg IVPB Q24H [facility] Last Admin: 10/08/18 13:25 Dose: 1,000 mg - Objective Vital Signs: Vital Signs Temperature 97.8 F 10/08/18 14:00 Pulse Rate 86 10/08/18 14:00 Respiratory Rate 23 H 10/08/18 14:00 Blood Pressure 111/73 10/08/18 14:00 O2 Sat by Pulse Oximetry (%) 94 L 10/08/18 09:00 Constitutional: Yes: Well Nourished, No Distress, Calm Eyes: Yes: Conjunctiva Clear, EOM Intact HENT: Yes: Atraumatic, Normocephalic Gastrointestinal: Yes: Soft, Tenderness (incisional), Other (colostomy pink, patent, productive of muddy brown stool - leaked from base, which was changed with nurse; one stool ball present - skin protected with some Karaya paste medially over denuded skin spots, 57mm base used with skin prep on intact skin) . No: Distention Genitourinary: Yes: Miguel Present, Polyuria Extremities: Yes: Erythema (resolving ecchymosis/edema to medial left arm from IV site). No: Cool, Cyanosis Edema: Yes (mild general) Integumentary: Yes: Incision (with dressings in midline), Skin Tear (small denuded spots between ostomy and midline). No: Jaundice, Rash Wound/Incision: Yes: [place] Intact (between wounds), Dressing Removed (and replaced with 2x2 gauzes in wounds (x4), covered with gauze, abd and tape to secure), Draining (some serous/serosang on dressings), Unapproximated (between anita). No: Dressing Dry and Intact (covering wound but with stool contamination on left side - cleansed with saline and gauze) Neurological: Yes: Confusion, Lethargy Labs: CBC, BMP 10/08/18 05:15 10/08/18 15:45 INR, PTT INR 1.32 (0.83-1.09) H 10/08/18 05:15 PTT was 53 before hep drip changed to Eliquis wbc sideways, still elevated last night, Na/Cl 152/118; morning sodium 154, Cl 120 --- repeat just now shows decrease in both (after HCTZ), K a bit low, BUN/Cr also down Problem List - Problems (1) Perforation of sigmoid colon Assessment/Plan: POD6 s/p sigmoidectomy with colostomy (Sidra's procedure) for stercoral perforation of sigmoid with peritonitis f/u cultures and pathology - one peritoneal fluid cx growing prevotella continue antibiotics per ID repeat blood culture neg to date muddy stool out ostomy, one small stool ball in bag in ICU with hypernatremia, 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 renal following - got HCTZ today with improvement in sodium encourage free water/liquid intake, NO caffeine ok for diet as tolerated pain meds - prn tylenol PT seeing, pt weak, has not been up to walk yet may need to get proper size convex appliance for ostomy base/bag changed with nurse for 57mm flange, skin prep and Karaya paste underneath medially dressings also changed in midline after cleansing area of stool leakage from ostomy - wounds clean, starting to granulate Code(s): K63.1 - PERFORATION OF INTESTINE (NONTRAUMATIC) (2) Stercoral ulcer of large intestine Code(s): K63.3 - ULCER OF INTESTINE (3) Stercolith Code(s): K56.41 - FECAL IMPACTION (4) Constipation Assessment/Plan: one stool ball out, liquid/muddy stool from colostomy, monitor for more solid output Code(s): K59.00 - CONSTIPATION, UNSPECIFIED Qualifiers: Constipation type: chronic idiopathic constipation Qualified Code(s): K59.04 - Chronic idiopathic constipation (5) Diabetes insipidus Assessment/Plan: 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 confused and sleepy on hypotonic fluids per renal, thiazide given today with good results diuresing copiously, clear urine encourage free water and clear liquids po monitor closely - would not transfer out of ICU until Na normalizes and mental status improves she is not independent with PO intake at this time and requires intensive care and attention to ensure free water intake Code(s): E23.2 - DIABETES INSIPIDUS (6) Acute hypernatremia Assessment/Plan: improving Code(s): E87.0 - HYPEROSMOLALITY AND HYPERNATREMIA (7) Paroxysmal atrial fibrillation Assessment/Plan: echo results noted - mild diastolic dysfunction but normal EF cardiology following rate and rhythm controlled hep drip stopped, eliquis started today keep lytes normal - working on Na balance pain controlled Code(s): I48.0 - PAROXYSMAL ATRIAL FIBRILLATION (8) Bipolar disorder Assessment/Plan: lithium likely to have contributed to DI it has been stopped, abilify started per psych unclear if any alternative meds will be needed/appropriate for long-term use Code(s): F31.9 - BIPOLAR DISORDER, UNSPECIFIED Qualifiers: Active/Remission status: in remission of unspecified degree Qualified Code( s): F31.70 - Bipolar disorder, currently in remission, most recent episode unspecified (9) Hypertension Assessment/Plan: on po beta paige Code(s): I10 - ESSENTIAL (PRIMARY) HYPERTENSION Qualifiers: Hypertension type: essential hypertension Qualified Code(s): I10 - Essential (primary) hypertension (10) Hyperlipidemia Code(s): E78.5 - HYPERLIPIDEMIA, UNSPECIFIED Qualifiers: Hyperlipidemia type: unspecified Qualified Code(s): E78.5 - Hyperlipidemia , unspecified (11) Hypothyroidism Assessment/Plan: on po synthroid Code(s): E03.9 - HYPOTHYROIDISM, UNSPECIFIED Qualifiers: Hypothyroidism type: unspecified Qualified Code(s): E03.9 - Hypothyroidism , unspecified (12) Hiatal hernia without gangrene or obstruction Code(s): K44.9 - DIAPHRAGMATIC HERNIA WITHOUT OBSTRUCTION OR GANGRENE
[2018-10-08] MEDS ORDERED: POTASSIUM CHLORIDE TABS 20 MEQ TABLET.ER (FP) PO ONE (18:31)
[2018-10-09] MEDS: MEROPENEM 1 GM in DEXTROSE 5%-WATER 100 ML IVPB SCH ×4 (02:00→18:11)
[2018-10-09] MEDS ORDERED: PT OWN MED DRAWER 7, Y5N ONE ×3 (04:09→18:01)
[2018-10-09] MEDS: METOPROLOL TARTRATE 50 MG TABLET (FP) PO SCH ×4 (04:16→22:04)
[2018-10-09 06:04] LABS: HEMATOCRIT 31.8 % (32.4-45.2); HEMOGLOBIN 10.1 GM/dL (10.7-15.3); MCH 26.2 pg (25.7-33.7); MCHC 31.7 g/dl (32.0-36.0); MEAN CELL VOLUME 82.7 fl (80-96); MEAN PLT VOLUME 8.7 fl (7.5-11.1); PLATELET COUNT 263 K/MM3 (134-434); RBC 3.85 M/mm3 (3.60-5.2); RDW 13.5 % (11.6-15.6); WHITE BLOOD COUNT 15.4 K/mm3 (4.0-10.0)
[2018-10-09 06:33] LABS: ALBUMIN 1.5 g/dl (3.4-5.0); ALK PHOS 89 U/L (45-117); ANION GAP 6 MMOL/L (8-16); BILIRUBIN,TOTAL 0.4 mg/dL (0.2-1); BLOOD UREA NITROGEN 16 mg/dL (7-18); CALCIUM 7.6 mg/dL (8.5-10.1); CHLORIDE 112 mmol/L (98-107); CO2 29 mmol/L (21-32); CREATININE 1.1 mg/dL (0.55-1.3); GLUCOSE,RANDOM 100 mg/dL (74-106); MAGNESIUM 1.8 mg/dL (1.8-2.4); PHOSPHOROUS 2.8 mg/dL (2.5-4.9); POTASSIUM 3.5 mmol/L (3.5-5.1); SGOT/AST 25 U/L (15-37); SGPT/ALT 20 U/L (13-61); SODIUM 147 mmol/L (136-145); TOT PROT 4.1 g/dl (6.4-8.2)
[2018-10-09] MEDS: LEVOTHYROXINE NA 100 MCG TABLET (FP) PO SCH (06:45)
[2018-10-09] MEDS: DEXTROSE 5%-WATER - 1,000 ML IV SCH ×3 (06:46→19:35)
--- NOTE | 2018-10-09 07:27 | PN ---
Physical Exam: SUBJECTIVE: Patient seen and examined at bedside. Per nurse, no acute events overnight. Pt was able to sleep throughout the night. She denies f/c, n/v, chest pain, sob, abd pain. She states she feels the need to defecate. She is oriented to person and place, but still confused as to why she is here. OBJECTIVE: Vital Signs Period Temp Pulse Resp BP Sys/Choi Pulse Ox Last 24 Hr 97.8 F-98.4 F 54-110 16-29 106-143/65-103 94-94 GENERAL: Pleasant. Comfortable. Awake and alert. Oriented to person and place. NAD. HEAD: Normal with no signs of trauma. EYES: EOM intact, no pallor or icterus. ENT: Ears normal, dry mucous membranes. NECK: Supple. LUNGS: Breath sounds equal, clear to auscultation bilaterally, no wheezes, no crackles, no accessory muscle use. HEART: Regular rate and rhythm, S1, S2 without murmur. ABDOMEN: Ostomy bag in place-functioning, dressing placed on the surgical site- clean, Soft, nontender, nondistended, normoactive bowel sounds. EXTREMITIES: 2+ pulses, warm, well-perfused, no edema. NEUROLOGICAL: Confused. No facial droop. Normal speech, gait not observed. PSYCH: Normal mood, normal affect. SKIN: Warm, dry, normal turgor, no rashes or lesions noted CBCD WBC 15.4 K/mm3 (4.0-10.0) H 10/09/18 05:30 RBC 3.85 M/mm3 (3.60-5.2) 10/09/18 05:30 Hgb 10.1 GM/dL (10.7-15.3) L 10/09/18 05:30 Hct 31.8 % (32.4-45.2) L 10/09/18 05:30 MCV 82.7 fl (80-96) 10/09/18 05:30 MCHC 31.7 g/dl (32.0-36.0) L 10/09/18 05:30 RDW 13.5 % (11.6-15.6) 10/09/18 05:30 Plt Count 263 K/MM3 (134-434) 10/09/18 05:30 MPV 8.7 fl (7.5-11.1) 10/09/18 05:30 CMP Sodium 147 mmol/L (136-145) H 10/09/18 05:30 Potassium 3.5 mmol/L (3.5-5.1) 10/09/18 05:30 Chloride 112 mmol/L (98-107) H 10/09/18 05:30 Carbon Dioxide 29 mmol/L (21-32) 10/09/18 05:30 Anion Gap 6 MMOL/L (8-16) L 10/09/18 05:30 BUN 16 mg/dL (7-18) 10/09/18 05:30 Creatinine 1.1 mg/dL (0.55-1.3) 10/09/18 05:30 Creat Clearance w eGFR 49.25 (>60) 10/09/18 05:30 Calcium 7.6 mg/dL (8.5-10.1) L 10/09/18 05:30 Total Bilirubin 0.4 mg/dL (0.2-1) 10/09/18 05:30 AST 25 U/L (15-37) 10/09/18 05:30 ALT 20 U/L (13-61) 10/09/18 05:30 Alkaline Phosphatase 89 U/L (45-117) 10/09/18 05:30 Total Protein 4.1 g/dl (6.4-8.2) L 10/09/18 05:30 Albumin 1.5 g/dl (3.4-5.0) L 10/09/18 05:30 Active Medications Acetaminophen (Ofirmev Injection -) 1,000 mg IVPB Q6H PRN PRN Reason: PAIN LEVEL 1-5 Last Admin: 10/08/18 15:00 Dose: 1,000 mg Apixaban (Eliquis -) 5 mg PO BID [facility] Last Admin: 10/08/18 22:00 Dose: 5 mg Aripiprazole (Abilify) 5 mg PO DAILY [facility] Last Admin: 10/08/18 09:55 Dose: 5 mg Chlorhexidine Gluconate (Hibiclens For Decolonization -) 1 applic TP HS [facility] Last Admin: 10/08/18 22:00 Dose: 1 applic Diltiazem HCl (Cardizem Injection -) 10 mg IVPUSH Q4H PRN PRN Reason: TACHYCARDIA Meropenem 1 gm/ Dextrose 100 mls @ 200 mls/hr IVPB Q8H-IV [facility] Last Admin: 10/09/18 02:00 Dose: 200 mls/hr Dextrose (D5w -) 1,000 mls @ 200 mls/hr IV ASDIR [facility] Last Admin: 10/09/18 06:46 Dose: 200 mls/hr Levothyroxine Sodium (Synthroid -) 100 mcg PO DAILY@0700 [facility] Last Admin: 10/09/18 06:45 Dose: 100 mcg Metoprolol Tartrate (Lopressor -) 50 mg PO TID [facility] Last Admin: 10/09/18 06:44 Dose: 50 mg Ranitidine HCl (Zantac -) 150 mg PO BID [facility] Last Admin: 10/08/18 22:00 Dose: 150 mg Vancomycin HCl (Vancomycin (Pre-Docked)) 1,000 mg IVPB Q24H [facility] Last Admin: 10/08/18 13:25 Dose: 1,000 mg ASSESSMENT/PLAN: Patient is a 67 year old female with significant past medical history of cholecystitis, chronic constipation, bipolar, pneumoperitoneum s/p ex lap, sigmoid colectomy with colostomy, POD #7 (10/02/18) admitted to the ICU for post -op care. GI #Sigmoid diverticulitis s/p (Sidra's procedure) sigmoid colectomy w/ colostomy, POD #7 -Pt has been afebrile, with minimal abd complaints. Ostomy functioning, +brown stool in stoma. Per surg, diet advanced to low sodium, no caffeine. Pt is tolerating diet and daily PO fluid hydration. No surgical complications at this time. -Continue IV Meropenem and IV Vanc -Blood culture/Urine cultures negative -Body fluid culture: Prevotella (10/02) Neurology #Altered mental status 2/2 suspected hypernatremia -Pt's mental status much improved this morning, Na now 147 after diuretic given. Pt is oriented to person and place. -Continue to treat hypernatremia with diuretic -Avoid narcotics Renal #Hypernatremia. -Na now 147; improving after HCTZ given. -D5W @ 200 mls/hr. She has been drinking PO fluids. -Sosm 337, Uosm 224. BMP q12H. -Per nephro, suspect underlying DI given h/o lithium use, polyuria, low Uosm in relation to Sosm. [place] d/c'd. Cont HCTZ to introduce mild hypovolemia in DCT in order to stimulate PCT to increase salt and water reabsorption; discussed with Dr. Zarate, agreed with transfer. -Encourage PO hydration Pulmonary -Extubated last week -Annette QID Cardiology #New onset A. fib with RVR -Pt is stable and has been in NSR. Currently rate controlled. -PO Metoprolol 50mg TID with Cardizem 10mg IV push Q4H PRN -Eliquis 5 BID for AC Endocrinology #Hypothyroidism -PO Synthroid 100 mcg Psych #Bipolar disorder -Pt is stable, but having delusions, likely 2/2 hypernatremia -Spoke with psych, will dc [place] and start Abilify 5 PO QD FEN -IV D5W @ 200 mls/hr -Electrolytes to be repeated in AM, Na today 147 -Sodium-controlled diet, no caffeine Prophylaxis -For GI: Ranitidine 150 mg PO BID -For DVT: Eliquis 5 BID Dispo: transfer to med-surg Visit type - Emergency Visit Emergency Visit: Yes ED Registration Date: 09/28/18 Care time: The patient presented to the Emergency Department on the above date and was hospitalized for further evaluation of their emergent condition. - New Patient This patient is new to me today: No - Critical Care Critical Care patient: Yes Total Critical Care Time (in minutes): 40 Critical Care Statement: The care of this patient involved high complexity decision making to prevent further life threatening deterioration of the patient 's condition and/or to evaluate & treat vital organ system(s) failure or risk of failure.
--- NOTE | 2018-10-09 08:49 | PN ---
Physical Exam: SUBJECTIVE: Patient seen and examined at bedside- no acute events overnight; patient slept through the night and was less agitated. her diet was advanced yesterday and she is tolerating it; patient is still confused but mental status is much improved and sodium is downtrending. she denies any CP/SOB/N/V fevers or chills OBJECTIVE: Vital Signs Period Temp Pulse Resp BP Sys/Choi Pulse Ox Last 24 Hr 97.8 F-98.4 F 54-96 16-29 106-155/65-103 94-94 GENERAL: The patient is awake, alert, oriented to self and time but not place- however, much improved. EYES: no scleral icterus . NECK: no JVD no lymphadenopathy LUNGS:CTA B/L; no rales, rhonchi or wheezing. HEART: Regular rate and rhythm, S1, S2 without murmur, rub or gallop. ABDOMEN: Soft, minimal distention; colosotomy bag in place with loose brown stool; non-tender (no wincing upon palpation), no rebound or guarding EXTREMITIES: 2+ pulses, warm, well-perfused, no edema. PSYCH: confused but improving SKIN: Warm, dry, normal turgor, no rashes or lesions noted Laboratory Results - last 24 hr 10/08/18 10/08/18 10/08/18 05:15 05:15 12:30 WBC RBC Hgb Hct MCV MCH MCHC RDW Plt Count MPV Neutrophils % (Manual) 88.9 H Band Neutrophils % 0.0 Lymphocytes % (Manual) 5.1 L D Monocytes % (Manual) 2 L Eosinophils % (Manual) 1.0 Basophils % (Manual) 0.0 Myelocytes % (Man) 1 D Promyelocytes % (Man) 0 Blast Cells % (Manual) 0 Metamyelocytes 0 Hypochromia 0 Toxic Granulation 0 Dohle Bodies 0 Platelet Estimate Normal Polychromasia 0 Poikilocytosis 0 Basophilic Stippling 0 Anisocytosis 0 Microcytosis 0 Macrocytosis 0 Spherocytes 0 Sickle Cells 0 Target Cells 0 Tear Drop Cells 0 Ovalocytes 0 Stomatocytes 0 Helmet Cells 0 [place] Bodies 0 [place] Rings 0 Branden Cells 0 Acanthocytes (Spur) 0 Rouleaux 0 Fragmented RBCs 0 Schistocytes 0 PT with INR 15.60 H INR 1.32 H PTT (Actin FS) 53.0 H Sodium Potassium Chloride Carbon Dioxide Anion Gap BUN Creatinine Creat Clearance w eGFR Random Glucose Calcium Phosphorus Magnesium Total Bilirubin AST ALT Alkaline Phosphatase Total Protein Albumin Stool Occult Blood Vancomycin Pre-Dose 17.0 L 10/08/18 10/08/18 10/09/18 13:15 15:45 05:30 WBC 15.4 H RBC 3.85 Hgb 10.1 L Hct 31.8 L MCV 82.7 MCH 26.2 MCHC 31.7 L RDW 13.5 Plt Count 263 MPV 8.7 Neutrophils % (Manual) Band Neutrophils % Lymphocytes % (Manual) Monocytes % (Manual) Eosinophils % (Manual) Basophils % (Manual) Myelocytes % (Man) Promyelocytes % (Man) Blast Cells % (Manual) Metamyelocytes Hypochromia Toxic Granulation Dohle Bodies Platelet Estimate Polychromasia Poikilocytosis Basophilic Stippling Anisocytosis Microcytosis Macrocytosis Spherocytes Sickle Cells Target Cells Tear Drop Cells Ovalocytes Stomatocytes Helmet Cells [place] Bodies [place] Rings [place] Cells Acanthocytes (Spur) Rouleaux Fragmented RBCs Schistocytes PT with INR INR PTT (Actin FS) Sodium 147 H Potassium 3.4 L Chloride 113 H Carbon Dioxide 26 Anion Gap 9 BUN 19 H Creatinine 1.2 Creat Clearance w eGFR 44.54 Random Glucose 109 H Calcium 7.4 L Phosphorus Magnesium Total Bilirubin AST ALT Alkaline Phosphatase Total Protein Albumin Stool Occult Blood Cancelled Vancomycin Pre-Dose 10/09/18 10/09/18 05:30 05:30 WBC RBC Hgb Hct MCV MCH MCHC RDW Plt Count MPV Neutrophils % (Manual) Band Neutrophils % Lymphocytes % (Manual) Monocytes % (Manual) Eosinophils % (Manual) Basophils % (Manual) Myelocytes % (Man) Promyelocytes % (Man) Blast Cells % (Manual) Metamyelocytes Hypochromia Toxic Granulation Dohle Bodies Platelet Estimate Polychromasia Poikilocytosis Basophilic Stippling Anisocytosis Microcytosis Macrocytosis Spherocytes Sickle Cells Target Cells Tear Drop Cells Ovalocytes Stomatocytes Helmet Cells [place] Bodies [place] Rings [place] Cells Acanthocytes (Spur) Rouleaux Fragmented RBCs Schistocytes PT with INR INR PTT (Actin FS) 33.2 Sodium 147 H Potassium 3.5 Chloride 112 H Carbon Dioxide 29 Anion Gap 6 L BUN 16 Creatinine 1.1 Creat Clearance w eGFR 49.25 Random Glucose 100 Calcium 7.6 L Phosphorus 2.8 Magnesium 1.8 Total Bilirubin 0.4 AST 25 ALT 20 Alkaline Phosphatase 89 Total Protein 4.1 L Albumin 1.5 L Stool Occult Blood Vancomycin Pre-Dose Active Medications Generic Name Dose Route Start Last Admin Trade Name Freq PRN Reason Stop Dose Admin Acetaminophen 1,000 mg 10/04/18 07:11 10/08/18 15:00 Ofirmev Injection - IVPB 1,000 mg Q6H PRN Administration PAIN LEVEL 1-5 Apixaban 5 mg 10/08/18 10:00 10/08/18 22:00 Eliquis - PO 5 mg BID [facility] Administration Aripiprazole 5 mg 10/08/18 10:00 10/08/18 09:55 Abilify PO 5 mg DAILY [facility] Administration Chlorhexidine Gluconate 1 applic 10/02/18 22:00 10/08/18 22:00 Hibiclens For Decolonization - TP 1 applic HS [facility] Administration Diltiazem HCl 10 mg 10/02/18 20:15 Cardizem Injection - IVPUSH Q4H PRN TACHYCARDIA Meropenem 1 gm/ Dextrose 100 mls @ 200 mls/hr 10/03/18 02:00 10/09/18 02:00 IVPB 200 mls/hr Q8H-IV [facility]OM[facility] Administration Dextrose 1,000 mls @ 200 mls/hr 10/08/18 13:35 10/09/18 06:46 D5w - IV 200 mls/hr ASDIR [facility] Administration Levothyroxine Sodium 100 mcg 10/07/18 07:00 10/09/18 06:45 Synthroid - PO 100 mcg DAILY@0700 [facility] Administration Metoprolol Tartrate 50 mg 10/06/18 22:00 10/09/18 06:44 Lopressor - PO 50 mg TID [facility]OM[facility] Administration Ranitidine HCl 150 mg 10/06/18 22:00 10/08/18 22:00 Zantac - PO 150 mg BID [facility] Administration Vancomycin HCl 1,000 mg 10/05/18 13:15 10/08/18 13:25 Vancomycin (Pre-Docked) IVPB 1,000 mg Q24H [facility] Administration ASSESSMENT/PLAN: 67 y/o female with PMH of cholecystitis and bipolar disorder presented to the ED with abdominal pain and constipation since found to have a 5x4.3x3.4 oval shaped structure with air possible representing an inflamed diverticulum vs. a contained perforation #POD #7 ex-lap and small bowel resection -patient underwent ex-lap with small bowel resection and ostomy creation -peritoneal cx sent growing prevotella -meropenem day 7, vancomycin day 5; ID on board vanc trough yesterday was 17 -f/u surgery recs -monitor hemodynamics -D5@ 2000mls/hr -WBC is downtrending -monitor ostomy output -currently in ICU -IV tylenol for pain #New onset Afib -patient has been in sinus overnight however with HR in 70's-80's -metoprolol tartrate 50 TID with lopressor 5mg PRN -cardizem 10 mg PRN -started patienty on eliquis 5mg BID yesterday -cardio on board #Acute metabolic encephalopathy possibly 2/2 hypernatremia patient has been hypernatremic with altered mental status however, sodium level is trending down and patients mental status is clinically improving -possibly 2/2 lithium use inducing nephrogenic diabetes insipidus; [facility] and just put on abilify -encourage free water intake -Dr. Zarate increased fluids to D5@200mls and added thiazide diuretic yesterday -BMP q12 #Bipolar Disorder -psych saw patient -holding lithium and started abilify given patients hypernatremia - which is downtrending #Hypothyroidism -c/w synthroid #MONIKA -likely 2/2 sepsis and injury; Cr downtrending -nephro on board -isotonic fluids -BMP q12 F/E/N D5 @200mls/hr monitor electrolytes; BMP 12qhrs liquids DVT PPX: Heparin drip Problem List - Problems (1) Abdominal pain Code(s): R10.9 - UNSPECIFIED ABDOMINAL PAIN Qualifiers: Abdominal location: unspecified location Qualified Code(s): R10.9 - Unspecified abdominal pain (2) Abnormal CT scan, sigmoid colon Code(s): R93.3 - ABNORMAL FINDINGS ON DX IMAGING OF PRT DIGESTIVE TRACT (3) Bipolar disorder Code(s): F31.9 - BIPOLAR DISORDER, UNSPECIFIED Qualifiers: Active/Remission status: in remission of unspecified degree Qualified Code( s): F31.70 - Bipolar disorder, currently in remission, most recent episode unspecified Visit type - Emergency Visit Emergency Visit: Yes ED Registration Date: 09/28/18 Care time: The patient presented to the Emergency Department on the above date and was hospitalized for further evaluation of their emergent condition. - New Patient This patient is new to me today: No - Critical Care Critical Care patient: No
[2018-10-09] MEDS: RANITIDINE HCL 150 MG TABLET (FP) PO SCH ×3 (09:46→21:48)
[2018-10-09] MEDS: APIXABAN 5 MG TABLET PO SCH ×2 (09:46→21:48)
[2018-10-09] MEDS: ARIPiprazole 5 MG TABLET (FP) PO SCH (09:46)
[2018-10-09] MEDS ORDERED: ACETAMINOPHEN 1000 MG/100 ML VIAL (NON FORMULARY) IVPB PRN (09:48)
[2018-10-09] MEDS ORDERED: dilTIAZem HCL 50 MG/10 ML - 10 ML VIAL IVPUSH PRN (09:48)
--- NOTE | 2018-10-09 11:15 | PN ---
Teaching Attending Note Name of Resident: Valeria Fox ATTENDING PHYSICIAN STATEMENT I saw and evaluated the patient. I reviewed the resident's note and discussed the case with the resident. I agree with the resident's findings and plan as documented. SUBJECTIVE: Pt seen and examined in the ICU. No specific complaints. Tolerating PO. No fevers recorded. OBJECTIVE: Vital Signs Period Temp Pulse Resp BP Sys/Choi Pulse Ox Last 24 Hr 97.8 F-99.8 F 54-96 18-29 106-155/65-103 94-94 Intake & Output 10/06/18 10/07/18 10/08/18 10/09/18 23:59 23:59 23:59 23:59 Intake Total 6590 4830 4490 1980 Output Total 5300 4400 4400 200 Balance 1290 970 32 1891 Weight 74.191 kg 70.874 kg 68.691 kg Gen: NAD at rest Heart: RRR Lung: decrease breath sounds at the bases Abd: soft, nontender, +ostomy with stool output Ext: no edema CBC, BMP 10/09/18 05:30 10/09/18 05:30 Active Medications Acetaminophen (Ofirmev Injection -) 1,000 mg IVPB Q6H PRN PRN Reason: PAIN LEVEL 1-5 Apixaban (Eliquis -) 5 mg PO BID [facility] Last Admin: 10/09/18 09:46 Dose: 5 mg Aripiprazole (Abilify) 5 mg PO DAILY [facility] Last Admin: 10/09/18 09:46 Dose: 5 mg Diltiazem HCl (Cardizem Injection -) 10 mg IVPUSH Q4H PRN PRN Reason: TACHYCARDIA Hydrochlorothiazide (Hctz -) 25 mg PO DAILY [facility] Dextrose (D5w -) 1,000 mls @ 200 mls/hr IV ASDIR [facility] Last Admin: 10/09/18 06:46 Dose: 200 mls/hr Meropenem 1 gm/ Dextrose 100 mls @ 200 mls/hr IVPB Q8H-IV [facility] Last Admin: 10/09/18 09:53 Dose: 200 mls/hr Levothyroxine Sodium (Synthroid -) 100 mcg PO DAILY@0700 [facility] Metoprolol Tartrate (Lopressor -) 50 mg PO TID [facility] Potassium Chloride (K-Dur -) 20 meq PO ONCE ONE Stop: 10/09/18 11:46 Ranitidine HCl (Zantac -) 150 mg PO BID [facility] Last Admin: 10/09/18 09:53 Dose: 150 mg Vancomycin HCl (Vancomycin (Pre-Docked)) 1,000 mg IVPB DAILY@1300 [facility] ASSESSMENT AND PLAN: Perforated Sigmoid Colon/Peritonitis s/p Sigmoidectomy/Colostomy Paroxysmal Atrial Fibrillation LV Diastolic Dysfunction Acute on Chronic Renal Failure Hypernatremia - r/o Diabetes Insipidus HTN Hypothyroidism Bipolar Disorder on [place] - continue antibiotics - IVF per renal - monitor urine output, creatinine, lytes - rate controlled - continue anticoagulation - PO as tolerated - DVT prophylaxis - can monitor on floor
[2018-10-09] MEDS: HYDROCHLOROTHIAZIDE 25 MG TABLET (FP) PO SCH (11:20)
[2018-10-09] MEDS ORDERED: POTASSIUM CHLORIDE TABS 20 MEQ TABLET.ER (FP) PO ONE (11:45)
--- NOTE | 2018-10-09 12:04 | PN ---
Progress Note, Physician History of Present Illness: Remains on [place] POD#7 sigmoidectomy with colostomy (Sidra's procedure) for sigmoid stercoral perforation with peritonitis. Remains in NSR. Tolerating full diet. - Current Medication List Current Medications: Active Medications Acetaminophen (Ofirmev Injection -) 1,000 mg IVPB Q6H PRN PRN Reason: PAIN LEVEL 1-5 Apixaban (Eliquis -) 5 mg PO BID [facility] Last Admin: 10/09/18 09:46 Dose: 5 mg Aripiprazole (Abilify) 5 mg PO DAILY [facility] Last Admin: 10/09/18 09:46 Dose: 5 mg Diltiazem HCl (Cardizem Injection -) 10 mg IVPUSH Q4H PRN PRN Reason: TACHYCARDIA Hydrochlorothiazide (Hctz -) 25 mg PO DAILY [facility] Last Admin: 10/09/18 11:20 Dose: 25 mg Dextrose (D5w -) 1,000 mls @ 200 mls/hr IV ASDIR [facility] Last Admin: 10/09/18 06:46 Dose: 200 mls/hr Meropenem 1 gm/ Dextrose 100 mls @ 200 mls/hr IVPB Q8H-IV [facility] Last Admin: 10/09/18 09:53 Dose: 200 mls/hr Levothyroxine Sodium (Synthroid -) 100 mcg PO DAILY@0700 [facility] Metoprolol Tartrate (Lopressor -) 50 mg PO TID [facility] Ranitidine HCl (Zantac -) 150 mg PO BID [facility] Last Admin: 10/09/18 09:53 Dose: 150 mg Vancomycin HCl (Vancomycin (Pre-Docked)) 1,000 mg IVPB DAILY@1300 [facility] - Objective Vital Signs: Vital Signs Temperature 99.8 F H 10/09/18 10:00 Pulse Rate 94 H 10/09/18 10:00 Respiratory Rate 24 H 10/09/18 10:00 Blood Pressure 127/81 10/09/18 10:00 O2 Sat by Pulse Oximetry (%) 94 L 10/09/18 09:09 Constitutional: Yes: No Distress, Calm Neck: Yes: Supple Cardiovascular: Yes: Regular Rate and Rhythm Respiratory: Yes: Regular, Diminished, On Nasal O2 Gastrointestinal: Yes: Normal Bowel Sounds, Soft, Other (colostomy) Edema: No Labs: CBC, BMP 10/09/18 05:30 10/09/18 05:30 INR, PTT INR 1.32 (0.83-1.09) H 10/08/18 05:15 Problem List - Problems (1) Diverticulitis of large intestine with perforation without abscess or bleeding Code(s): K57.20 - DVTRCLI OF LG INT W PERFORATION AND ABSCESS W/O BLEEDING (2) Hyperlipidemia Code(s): E78.5 - HYPERLIPIDEMIA, UNSPECIFIED Qualifiers: Hyperlipidemia type: unspecified Qualified Code(s): E78.5 - Hyperlipidemia , unspecified (3) Hypertension Code(s): I10 - ESSENTIAL (PRIMARY) HYPERTENSION Qualifiers: Hypertension type: essential hypertension Qualified Code(s): I10 - Essential (primary) hypertension (4) Hypothyroidism Code(s): E03.9 - HYPOTHYROIDISM, UNSPECIFIED Qualifiers: Hypothyroidism type: unspecified Qualified Code(s): E03.9 - Hypothyroidism , unspecified (5) Paroxysmal atrial fibrillation Code(s): I48.0 - PAROXYSMAL ATRIAL FIBRILLATION (6) History of open sigmoidectomy Code(s): Z98.890 - OTHER SPECIFIED POSTPROCEDURAL STATES; Z90.49 - ACQUIRED ABSENCE OF OTHER SPECIFIED PARTS OF DIGESTIVE TRACT Assessment/Plan 09/30/2018 Echo: Normal LV size and fxn LVEF 60-65%, mildly impaired LV compliance, normal RV fxn, normal atrial sizes, mild TR, trace-mild MR 1. POD#7 sigmoidectomy with colostomy (Sidra's procedure) for sigmoid stercoral perforation with peritonitis 2. Paroxysmal atrial fibrillation [id number] score of 3 currently on A/C/ Heparin 3. Diastolic LV dysfunction with clinical class 0 NYHA classification LV failure 4. Hypertension 5. Hypothyroidism 6. Bipolar disorder, paranoid behavior 7. Acute on CKD 8. Hypernatremia improving PLAN: 1. Continue Eliquis 5 bid 2. Continue Lopressor 50 tid, HCT 25 qd 3. Continue IV Cardizem as needed for rate control 4. Complete antibiotic course per the primary team 5. Ambulate as tolerated
[2018-10-09] MEDS: VANCOMYCIN 1 GM in D5W (PRE-DOCKED) 1,000 MG/250 ML IVPB SCH (13:45)
--- NOTE | 2018-10-09 16:29 | PN ---
Progress Note, Physician History of Present Illness: s/p Sidra's procedure for OR findings of stercoral perforation with peritonitis abx per ID pt seen and examined in bed, was sitting up in chair earlier and walked a short distance with PT she is sleepy but wakes easily pain is controlled, but she is a bit uncomfortable with dressing change tolerating diet - still on D5W as per renal HCTZ daily sodium is improving, BUN/Cr also improving colostomy with soft/muddy/liquid brown output, base intact from yesterday but getting soft medially Miguel with very light/clear urine, copious output lithium stopped, on abilify per psych - Current Medication List Current Medications: Active Medications Acetaminophen (Ofirmev Injection -) 1,000 mg IVPB Q6H PRN PRN Reason: PAIN LEVEL 1-5 Apixaban (Eliquis -) 5 mg PO BID [facility] Last Admin: 10/09/18 09:46 Dose: 5 mg Aripiprazole (Abilify) 5 mg PO DAILY [facility] Last Admin: 10/09/18 09:46 Dose: 5 mg Diltiazem HCl (Cardizem Injection -) 10 mg IVPUSH Q4H PRN PRN Reason: TACHYCARDIA Hydrochlorothiazide (Hctz -) 25 mg PO DAILY [facility] Last Admin: 10/09/18 11:20 Dose: 25 mg Dextrose (D5w -) 1,000 mls @ 200 mls/hr IV ASDIR [facility] Last Admin: 10/09/18 13:45 Dose: 200 mls/hr Meropenem 1 gm/ Dextrose 100 mls @ 200 mls/hr IVPB Q8H-IV [facility] Last Admin: 10/09/18 09:53 Dose: 200 mls/hr Levothyroxine Sodium (Synthroid -) 100 mcg PO DAILY@0700 [facility] Metoprolol Tartrate (Lopressor -) 50 mg PO TID [facility] Last Admin: 10/09/18 13:46 Dose: 50 mg Ranitidine HCl (Zantac -) 150 mg PO BID [facility] Last Admin: 10/09/18 09:53 Dose: 150 mg Vancomycin HCl (Vancomycin (Pre-Docked)) 1,000 mg IVPB DAILY@1300 [facility] Last Admin: 10/09/18 13:45 Dose: 1,000 mg - Objective Vital Signs: Vital Signs Temperature 98.2 F 10/09/18 14:42 Pulse Rate 57 L 10/09/18 14:00 Respiratory Rate 20 10/09/18 14:00 Blood Pressure 127/81 10/09/18 14:00 O2 Sat by Pulse Oximetry (%) 94 L 10/09/18 09:09 Constitutional: Yes: Well Nourished, No Distress, Calm Eyes: Yes: Conjunctiva Clear, EOM Intact HENT: Yes: Atraumatic, Normocephalic Gastrointestinal: Yes: Normal Bowel Sounds, Soft, Tenderness (incisional only with dressing change), Other (colostomy pink, patent, productive of liquid brown stool). No: Distention Genitourinary: Yes: Miguel Present, Polyuria Musculoskeletal: No: Joint Stiffness, Joint Swelling Extremities: Yes: Erythema (medial left arm ecchymosis/edema resolving). No: Cool, Cyanosis Integumentary: Yes: Incision (midline with dressing), Skin Tear (small denuded skin areas between stoma and midline - serous weeping, ostomy appliance base soft over parts of these sites). No: Jaundice, Rash Wound/Incision: Yes: [place] Intact (between wounds), Dressing Dry and Intact ( nurse changed outer gauze/pad), Dressing Removed (and packing changed - wounds clean, yellow and pink, starting to granulate slowly; 2x2 gauze used to tuck into each wound (x4), covered with gauze, abd pad and tape, avoiding skin irritation from previous tape), Unapproximated (between anita) Neurological: Yes: Alert, Confusion (mildly), Lethargy Labs: CBC, BMP 10/09/18 05:30 10/09/18 05:30 wbc coming down Hb stable Na, Cl down/stable BUN/Cr decreased K somewhat low Problem List - Problems (1) Perforation of sigmoid colon Assessment/Plan: POD7 s/p sigmoidectomy with colostomy (Sidra's procedure) for stercoral perforation of sigmoid with peritonitis pathology consistent with sigmoid perforation, serositis, margins viable one peritoneal fluid cx growing prevotella continue antibiotics per ID repeat blood culture neg to date in ICU with hypernatremia, 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 renal following - now getting HCTZ daily with improvement in sodium encourage free water/liquid intake, NO caffeine tolerating diet colostomy functioning pain meds - prn tylenol PT seeing, pt weak, able to walk a few steps in room today with assistance may need to get proper size convex appliance for ostomy wound dressings changed, sites are clean Code(s): K63.1 - PERFORATION OF INTESTINE (NONTRAUMATIC) (2) Stercoral ulcer of large intestine Code(s): K63.3 - ULCER OF INTESTINE (3) Stercolith Code(s): K56.41 - FECAL IMPACTION (4) Constipation Code(s): K59.00 - CONSTIPATION, UNSPECIFIED Qualifiers: Constipation type: chronic idiopathic constipation Qualified Code(s): K59.04 - Chronic idiopathic constipation (5) Diabetes insipidus Assessment/Plan: 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 mildly confused and sleepy on hypotonic fluids per renal, thiazide given with good results, to continue daily diuresing copiously, clear urine encourage free water and clear liquids po monitor closely - she is not independent with PO intake at this time and requires intensive care and attention to ensure free water intake Code(s): E23.2 - DIABETES INSIPIDUS (6) Acute hypernatremia Assessment/Plan: improving Code(s): E87.0 - HYPEROSMOLALITY AND HYPERNATREMIA (7) Paroxysmal atrial fibrillation Assessment/Plan: echo results noted - mild diastolic dysfunction but normal EF cardiology following rate and rhythm controlled on eliquis keep lytes normal pain controlled Code(s): I48.0 - PAROXYSMAL ATRIAL FIBRILLATION (8) Bipolar disorder Assessment/Plan: lithium likely to have contributed to DI it has been stopped, abilify started per psych unclear if any alternative meds will be needed/appropriate for long-term use Code(s): F31.9 - BIPOLAR DISORDER, UNSPECIFIED Qualifiers: Active/Remission status: in remission of unspecified degree Qualified Code( s): F31.70 - Bipolar disorder, currently in remission, most recent episode unspecified (9) Hypertension Assessment/Plan: on po beta paige Code(s): I10 - ESSENTIAL (PRIMARY) HYPERTENSION Qualifiers: Hypertension type: essential hypertension Qualified Code(s): I10 - Essential (primary) hypertension (10) Hyperlipidemia Code(s): E78.5 - HYPERLIPIDEMIA, UNSPECIFIED Qualifiers: Hyperlipidemia type: unspecified Qualified Code(s): E78.5 - Hyperlipidemia , unspecified (11) Hypothyroidism Assessment/Plan: on po synthroid Code(s): E03.9 - HYPOTHYROIDISM, UNSPECIFIED Qualifiers: Hypothyroidism type: unspecified Qualified Code(s): E03.9 - Hypothyroidism , unspecified (12) Hiatal hernia without gangrene or obstruction Code(s): K44.9 - DIAPHRAGMATIC HERNIA WITHOUT OBSTRUCTION OR GANGRENE Assessment/Plan This patient is critically ill. Time spent reviewing chart, examining patient, talking with providers and/or family and documentation is 35 minutes. Discussed with ICU resident.
--- NOTE | 2018-10-09 16:59 | PN ---
Teaching Attending Note Name of Resident: Yaima Baeza ATTENDING PHYSICIAN STATEMENT I saw and evaluated the patient. I reviewed the resident's note and discussed the case with the resident. I agree with the resident's findings and plan as documented. SUBJECTIVE: Patient is sleepy laying in bed. OBJECTIVE: Vital Signs Period Temp Pulse Resp BP Sys/Choi Pulse Ox Last 24 Hr 98.2 F-99.8 F 54-94 18-24 106-155/65-103 94-94 HEART: S1S2, RRR LUNGS: Clear ABDOMEN: Soft, non-tender, non-distended, normal BS, (+) colostomy with liquid brown stool in bag EXTREMITIES: No edema Laboratory Results - last 24 hr 10/09/18 10/09/18 10/09/18 05:30 05:30 05:30 WBC 15.4 H RBC 3.85 Hgb 10.1 L Hct 31.8 L MCV 82.7 MCH 26.2 MCHC 31.7 L RDW 13.5 Plt Count 263 MPV 8.7 PTT (Actin FS) 33.2 Sodium 147 H Potassium 3.5 Chloride 112 H Carbon Dioxide 29 Anion Gap 6 L BUN 16 Creatinine 1.1 Creat Clearance w eGFR 49.25 Random Glucose 100 Calcium 7.6 L Phosphorus 2.8 Magnesium 1.8 Total Bilirubin 0.4 AST 25 ALT 20 Alkaline Phosphatase 89 Total Protein 4.1 L Albumin 1.5 L Current Medications Generic Name Dose Route Start Last Admin Trade Name Freq PRN Reason Stop Dose Admin Acetaminophen 1,000 mg 10/09/18 09:48 Ofirmev Injection - IVPB Q6H PRN PAIN LEVEL 1-5 Apixaban 5 mg 10/08/18 10:00 10/09/18 09:46 Eliquis - PO 5 mg BID [facility] Administration Aripiprazole 5 mg 10/08/18 10:00 10/09/18 09:46 Abilify PO 5 mg DAILY [facility] Administration Diltiazem HCl 10 mg 10/09/18 09:48 Cardizem Injection - IVPUSH Q4H PRN TACHYCARDIA Hydrochlorothiazide 25 mg 10/09/18 11:15 10/09/18 11:20 Hctz - PO 25 mg DAILY [facility] Administration Dextrose 1,000 mls @ 200 mls/hr 10/08/18 13:35 10/09/18 13:45 D5w - IV 200 mls/hr ASDIR [facility] Administration Meropenem 1 gm/ Dextrose 100 mls @ 200 mls/hr 10/09/18 10:00 10/09/18 09:53 IVPB 200 mls/hr Q8H-IV [facility] Administration Levothyroxine Sodium 100 mcg 10/10/18 07:00 Synthroid - PO DAILY@0700 [facility] Metoprolol Tartrate 50 mg 10/09/18 14:00 10/09/18 13:46 Lopressor - PO 50 mg TID [facility] Administration Ranitidine HCl 150 mg 10/09/18 10:00 10/09/18 09:53 Zantac - PO 150 mg BID [facility] Administration Vancomycin HCl 1,000 mg 10/09/18 13:00 10/09/18 13:45 Vancomycin (Pre-Docked) IVPB 1,000 mg DAILY@1300 [facility] Administration ASSESSMENT AND PLAN: This is a 67 year old woman with a history of bipolar disorder, hypothyroidism who presented to the ED with abdominal pain and constipation. 1. Sepsis secondary to diverticulitis with localized perforation and peritonitis - Peritoneal culture grew Prevotella - s/p Sidra procedure 10/02 - Afebrile, WBC improving - Continue Merrem, Vancomycin 2. 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 Paroxysmal atrial fib - Remains in SR - Continue Lopressor, Eliquis 4. LV diastolic dysfunction - No evidence of heart failure 5. Hypokalemia - Replete potassium as needed 6. Acute kidney injury secondary to sepsis, hypovolemia - Improved 7. Acute metabolic encephalopathy - Multifactorial, including sepsis, hypernatremia, ICU psychosis - Improving 8. Bipolar disorder - Continue Abilify 9. Hypothyroidism - Continue Synthroid 10. HTN - Continue Lopressor, HCTZ
--- NOTE | 2018-10-09 17:39 | PN ---
Progress Note (short form) - Note Progress Note: Renal follow up for MONIKA Pt seen and examined in the ICU no overnight events on IVF making urine tolerating oral diet and water intake Vital Signs Temperature 98.2 F 10/09/18 14:42 Pulse Rate 60 10/09/18 16:00 Respiratory Rate 20 10/09/18 16:00 Blood Pressure 120/76 10/09/18 16:00 O2 Sat by Pulse Oximetry (%) 94 L 10/09/18 09:09 Intake & Output 10/06/18 10/07/18 10/08/18 10/09/18 23:59 23:59 23:59 23:59 Intake Total 6590 4830 4490 2180 Output Total 5300 4400 4400 1000 Balance 1290 691 40 8459 Weight 74.191 kg 70.874 kg 68.691 kg NAD NGT in place neck supple tachycardic dec Bs, no rales no LE edema CBC, BMP 10/09/18 05:30 10/09/18 05:30 Current Medications Acetaminophen (Ofirmev Injection -) 1,000 mg IVPB Q6H PRN PRN Reason: PAIN LEVEL 1-5 Apixaban (Eliquis -) 5 mg PO BID [facility] Last Admin: 10/09/18 09:46 Dose: 5 mg Aripiprazole (Abilify) 5 mg PO DAILY [facility] Last Admin: 10/09/18 09:46 Dose: 5 mg Diltiazem HCl (Cardizem Injection -) 10 mg IVPUSH Q4H PRN PRN Reason: TACHYCARDIA Hydrochlorothiazide (Hctz -) 25 mg PO DAILY [facility] Last Admin: 10/09/18 11:20 Dose: 25 mg Dextrose (D5w -) 1,000 mls @ 200 mls/hr IV ASDIR [facility] Last Admin: 10/09/18 13:45 Dose: 200 mls/hr Meropenem 1 gm/ Dextrose 100 mls @ 200 mls/hr IVPB Q8H-IV [facility] Last Admin: 10/09/18 09:53 Dose: 200 mls/hr Levothyroxine Sodium (Synthroid -) 100 mcg PO DAILY@0700 [facility] Metoprolol Tartrate (Lopressor -) 50 mg PO TID [facility] Last Admin: 10/09/18 13:46 Dose: 50 mg Ranitidine HCl (Zantac -) 150 mg PO BID [facility] Last Admin: 10/09/18 09:53 Dose: 150 mg Vancomycin HCl (Vancomycin (Pre-Docked)) 1,000 mg IVPB DAILY@1300 [facility] Last Admin: 10/09/18 13:45 Dose: 1,000 mg 67 year old woman with hx of bipolar disorder, cholecystitis who presented with constipation and lower abd pain and found to have acute diverticulosis and new Afib with subsequent development of ileus with MONIKA. 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
[2018-10-09 19:11] LABS: ANION GAP 8 MMOL/L (8-16); BLOOD UREA NITROGEN 15 mg/dL (7-18); CALCIUM 7.7 mg/dL (8.5-10.1); CHLORIDE 109 mmol/L (98-107); CO2 27 mmol/L (21-32); CREATININE 1.1 mg/dL (0.55-1.3); GLUCOSE,RANDOM 109 mg/dL (74-106); POTASSIUM 3.8 mmol/L (3.5-5.1); SODIUM 144 mmol/L (136-145)
--- NOTE | 2018-10-09 20:39 | PN ---
Progress Note, Physician History of Present Illness: more awake and alert still confusion exists - Current Medication List Current Medications: Active Medications Acetaminophen (Ofirmev Injection -) 1,000 mg IVPB Q6H PRN PRN Reason: PAIN LEVEL 1-5 Apixaban (Eliquis -) 5 mg PO BID [facility] Last Admin: 10/09/18 09:46 Dose: 5 mg Aripiprazole (Abilify) 5 mg PO DAILY [facility] Last Admin: 10/09/18 09:46 Dose: 5 mg Diltiazem HCl (Cardizem Injection -) 10 mg IVPUSH Q4H PRN PRN Reason: TACHYCARDIA Hydrochlorothiazide (Hctz -) 25 mg PO DAILY [facility] Last Admin: 10/09/18 11:20 Dose: 25 mg Meropenem 1 gm/ Dextrose 100 mls @ 200 mls/hr IVPB Q8H-IV [facility] Last Admin: 10/09/18 18:11 Dose: 200 mls/hr Dextrose (D5w -) 1,000 mls @ 125 mls/hr IV ASDIR [facility] Levothyroxine Sodium (Synthroid -) 100 mcg PO DAILY@0700 [facility] Metoprolol Tartrate (Lopressor -) 50 mg PO TID [facility] Last Admin: 10/09/18 13:46 Dose: 50 mg Ranitidine HCl (Zantac -) 150 mg PO BID [facility] Last Admin: 10/09/18 09:53 Dose: 150 mg Vancomycin HCl (Vancomycin (Pre-Docked)) 1,000 mg IVPB DAILY@1300 [facility] Last Admin: 10/09/18 13:45 Dose: 1,000 mg - Objective Vital Signs: Vital Signs Temperature 98.2 F 10/09/18 14:42 Pulse Rate 59 L 10/09/18 20:00 Respiratory Rate 25 H 10/09/18 20:00 Blood Pressure 118/58 L 10/09/18 20:00 O2 Sat by Pulse Oximetry (%) 94 L 10/09/18 20:31 Constitutional: Yes: No Distress, Calm Cardiovascular: Yes: Regular Rate and Rhythm Respiratory: Yes: Regular, On Nasal O2, Poor Air Entry (bases) Gastrointestinal: Yes: Hyperactive Bowel Sounds, Other (colostomy) Musculoskeletal: Yes: WNL Extremities: Yes: WNL Neurological: Yes: Alert, Confusion Labs: CBC, BMP 10/09/18 05:30 10/09/18 17:30 INR, PTT INR 1.32 (0.83-1.09) H 10/08/18 05:15 - ....Imaging Chest X-ray: Report Reviewed, Image Reviewed Assessment/Plan - Problems (1) Diverticulitis of large intestine with perforation without abscess or bleeding Code(s): K57.20 - DVTRCLI OF LG INT W PERFORATION AND ABSCESS W/O BLEEDING (2) Suprapubic pain Code(s): R10.2 - PELVIC AND PERINEAL PAIN (3) Constipation Code(s): K59.00 - CONSTIPATION, UNSPECIFIED Qualifiers: Constipation type: other constipation type Qualified Code(s): K59.09 - Other constipation (4) Paroxysmal atrial fibrillation Code(s): I48.0 - PAROXYSMAL ATRIAL FIBRILLATION (5) Bipolar disorder Code(s): F31.9 - BIPOLAR DISORDER, UNSPECIFIED Qualifiers: Active/Remission status: in remission of unspecified degree Qualified Code( s): F31.70 - Bipolar disorder, currently in remission, most recent episode unspecified (6) Hypertension Code(s): I10 - ESSENTIAL (PRIMARY) HYPERTENSION Qualifiers: Hypertension type: essential hypertension Qualified Code(s): I10 - Essential (primary) hypertension (7) Hyperlipidemia Code(s): E78.5 - HYPERLIPIDEMIA, UNSPECIFIED Qualifiers: Hyperlipidemia type: unspecified Qualified Code(s): E78.5 - Hyperlipidemia , unspecified (8) Hypothyroidism Code(s): E03.9 - HYPOTHYROIDISM, UNSPECIFIED Qualifiers: Hypothyroidism type: unspecified Qualified Code(s): E03.9 - Hypothyroidism , unspecified (9) Hiatal hernia without gangrene or obstruction Code(s): K44.9 - DIAPHRAGMATIC HERNIA WITHOUT OBSTRUCTION OR GANGRENE plan continue abx monitor mental status rest as per icu close watch hydration as per surgery will deescalate once patient stable cc 38 min
[2018-10-10] MEDS: MEROPENEM 1 GM in DEXTROSE 5%-WATER 100 ML IVPB SCH ×3 (03:00→17:48)
[2018-10-10] MEDS: DEXTROSE 5%-WATER - 1,000 ML IV SCH ×3 (04:00→12:05)
[2018-10-10 05:57] LABS: HEMATOCRIT 31.3 % (32.4-45.2); MCH 26.5 pg (25.7-33.7); MEAN PLT VOLUME 9.4 fl (7.5-11.1); PLATELET COUNT 259 K/MM3 (134-434); RBC 3.77 M/mm3 (3.60-5.2); RDW 13.3 % (11.6-15.6); WHITE BLOOD COUNT 13.7 K/mm3 (4.0-10.0)
[2018-10-10] MEDS: METOPROLOL TARTRATE 50 MG TABLET (FP) PO SCH ×3 (06:13→21:52)
[2018-10-10 06:22] LABS: ALBUMIN 1.6 g/dl (3.4-5.0); ALK PHOS 96 U/L (45-117); ANION GAP 7 MMOL/L (8-16); BILIRUBIN,TOTAL 0.3 mg/dL (0.2-1); BLOOD UREA NITROGEN 16 mg/dL (7-18); CALCIUM 7.7 mg/dL (8.5-10.1); CHLORIDE 111 mmol/L (98-107); CO2 26 mmol/L (21-32); CREATININE 1.1 mg/dL (0.55-1.3); GLUCOSE,RANDOM 95 mg/dL (74-106); MAGNESIUM 1.6 mg/dL (1.8-2.4); PHOSPHOROUS 2.4 mg/dL (2.5-4.9); SGOT/AST 21 U/L (15-37); SGPT/ALT 18 U/L (13-61); SODIUM 145 mmol/L (136-145); TOT PROT 4.5 g/dl (6.4-8.2)
[2018-10-10] MEDS ORDERED: LEVOTHYROXINE NA 100 MCG TABLET (FP) PO SCH (07:00)
--- NOTE | 2018-10-10 07:51 | PN ---
Physical Exam: SUBJECTIVE: Patient seen and examined at bedside. No acute events overnight. Pt more alert and awake today. Oriented to time, person, place. Denies trotter/d, chest pain, sob. Ostomy functioning. OBJECTIVE: Vital Signs Period Temp Pulse Resp BP Sys/Choi Pulse Ox Last 24 Hr 98.2 F-99.8 F 57-94 16-25 112-155/58-86 94-94 GENERAL: Pleasant. Comfortable. AAOx3. NAD. HEAD: Normal with no signs of trauma. EYES: EOM intact, no pallor or icterus. ENT: Ears normal, dry mucous membranes. NECK: Supple. LUNGS: Breath sounds equal, clear to auscultation bilaterally, no wheezes, no crackles, no accessory muscle use. HEART: Regular rate and rhythm, S1, S2 without murmur. ABDOMEN: Ostomy bag in place-functioning, dressing placed on the surgical site- clean, Soft, nontender, nondistended, normoactive bowel sounds. EXTREMITIES: 2+ pulses, warm, well-perfused, no edema. NEUROLOGICAL: No facial droop. Normal speech, gait not observed. PSYCH: Normal mood, normal affect. SKIN: Warm, dry, normal turgor, no rashes or lesions noted CBCD WBC 13.7 K/mm3 (4.0-10.0) H 10/10/18 05:30 RBC 3.77 M/mm3 (3.60-5.2) 10/10/18 05:30 Hgb 10.0 GM/dL (10.7-15.3) L 10/10/18 05:30 Hct 31.3 % (32.4-45.2) L 10/10/18 05:30 MCV 83.0 fl (80-96) 10/10/18 05:30 MCHC 32.0 g/dl (32.0-36.0) 10/10/18 05:30 RDW 13.3 % (11.6-15.6) 10/10/18 05:30 Plt Count 259 K/MM3 (134-434) 10/10/18 05:30 MPV 9.4 fl (7.5-11.1) 10/10/18 05:30 CMP Sodium 145 mmol/L (136-145) 10/10/18 05:30 Potassium 4.0 mmol/L (3.5-5.1) 10/10/18 05:30 Chloride 111 mmol/L (98-107) H 10/10/18 05:30 Carbon Dioxide 26 mmol/L (21-32) 10/10/18 05:30 Anion Gap 7 MMOL/L (8-16) L 10/10/18 05:30 BUN 16 mg/dL (7-18) 10/10/18 05:30 Creatinine 1.1 mg/dL (0.55-1.3) 10/10/18 05:30 Creat Clearance w eGFR 49.25 (>60) 10/10/18 05:30 Calcium 7.7 mg/dL (8.5-10.1) L 10/10/18 05:30 Total Bilirubin 0.3 mg/dL (0.2-1) 10/10/18 05:30 AST 21 U/L (15-37) 10/10/18 05:30 ALT 18 U/L (13-61) 10/10/18 05:30 Alkaline Phosphatase 96 U/L (45-117) 10/10/18 05:30 Total Protein 4.5 g/dl (6.4-8.2) L 10/10/18 05:30 Albumin 1.6 g/dl (3.4-5.0) L 10/10/18 05:30 Active Medications Acetaminophen (Ofirmev Injection -) 1,000 mg IVPB Q6H PRN PRN Reason: PAIN LEVEL 1-5 Apixaban (Eliquis -) 5 mg PO BID [facility] Last Admin: 10/09/18 21:48 Dose: 5 mg Aripiprazole (Abilify) 5 mg PO DAILY [facility] Last Admin: 10/09/18 09:46 Dose: 5 mg Diltiazem HCl (Cardizem Injection -) 10 mg IVPUSH Q4H PRN PRN Reason: TACHYCARDIA Hydrochlorothiazide (Hctz -) 25 mg PO DAILY [facility] Last Admin: 10/09/18 11:20 Dose: 25 mg Meropenem 1 gm/ Dextrose 100 mls @ 200 mls/hr IVPB Q8H-IV [facility] Last Admin: 10/10/18 03:00 Dose: 200 mls/hr Dextrose (D5w -) 1,000 mls @ 125 mls/hr IV ASDIR [facility] Last Admin: 10/10/18 04:00 Dose: 125 mls/hr Levothyroxine Sodium (Synthroid -) 100 mcg PO DAILY@0700 [facility] Last Admin: 10/10/18 06:12 Dose: 100 mcg Metoprolol Tartrate (Lopressor -) 50 mg PO TID [facility] Last Admin: 10/10/18 06:13 Dose: Not Given Ranitidine HCl (Zantac -) 150 mg PO BID [facility] Last Admin: 10/09/18 21:48 Dose: 150 mg Vancomycin HCl (Vancomycin (Pre-Docked)) 1,000 mg IVPB DAILY@1300 [facility] Last Admin: 10/09/18 13:45 Dose: 1,000 mg ASSESSMENT/PLAN: Patient is a 67 year old female with significant past medical history of cholecystitis, chronic constipation, bipolar, pneumoperitoneum s/p ex lap, sigmoid colectomy with colostomy, POD #8 (10/02/18) admitted to the ICU for post -op care. GI #Sigmoid diverticulitis s/p (Sidra's procedure) sigmoid colectomy w/ colostomy, POD #8 -Pt has been afebrile, with minimal abd complaints. Ostomy functioning, +brown stool in stoma. Per surg, diet advanced to low sodium, no caffeine. Pt is tolerating diet and daily PO fluid hydration. No surgical complications at this time. -Continue IV Meropenem and IV Vanc -Blood culture/Urine cultures negative -Body fluid culture: Prevotella (10/02) Neurology #Altered mental status 2/2 suspected hypernatremia -Pt's mental status much improved this morning, Na now 145 after diuretic given. AAOx3. -Continue to treat with diuretic -Avoid narcotics Renal #Hypernatremia. -Na now 145; cont HCTZ 25 QD -Sosm 337, Uosm 224. BMP q12H. -Per nephro, suspect underlying DI given h/o lithium use, polyuria, low Uosm in relation to Sosm. [place] d/c'd. Cont HCTZ to introduce mild hypovolemia in DCT in order to stimulate PCT to increase salt and water reabsorption; discussed with Dr. Zarate, agreed with transfer. -Encourage PO hydration Pulmonary -Extubated last week -Duonebs QID Cardiology #New onset A. fib with RVR -Pt is stable and has been in NSR. Currently rate controlled. -PO Metoprolol 50mg TID with Cardizem 10mg IV push Q4H PRN -Eliquis 5 BID for AC Endocrinology #Hypothyroidism -PO Synthroid 100 mcg Psych #Bipolar disorder -Pt is stable, but having delusions, likely 2/2 hypernatremia -Spoke with psych, dc [place] and start Abilify 5 PO QD FEN -IV D5W @ 75 mls/hr -BMP Q12H, Na 145 this AM, f/u repeat in evening -Sodium-controlled diet, no caffeine Prophylaxis -For GI: Ranitidine 150 mg PO BID -For DVT: Eliquis 5 BID Dispo: transfer to med-surg -PT to see patient to help ambulate. Visit type - Emergency Visit Emergency Visit: Yes ED Registration Date: 09/28/18 Care time: The patient presented to the Emergency Department on the above date and was hospitalized for further evaluation of their emergent condition. - New Patient This patient is new to me today: No - Critical Care Critical Care patient: Yes Total Critical Care Time (in minutes): 36 Critical Care Statement: The care of this patient involved high complexity decision making to prevent further life threatening deterioration of the patient 's condition and/or to evaluate & treat vital organ system(s) failure or risk of failure.
--- NOTE | 2018-10-10 08:10 | PN ---
Physical Exam: SUBJECTIVE: Patient seen and examined at bedside- no acute events overnight. patient seems less confused this AM she knows her name the month/year and that she is in the hospital- she denies any CP/SOB/N/V fevers or chills OBJECTIVE: Vital Signs Period Temp Pulse Resp BP Sys/Choi Pulse Ox Last 24 Hr 98.2 F-99.8 F 57-94 16-25 112-155/58-86 94-94 GENERAL: The patient is awake, alert, AAOx2. EYES: no scleral icterus NECK: no JVD LUNGS: CTA B/L; no rales, rhonchi or wheezing. HEART: Regular rate and rhythm, S1, S2 without murmur, rub or gallop. ABDOMEN: Soft, nontender, nondistended, +BS, colostomy in place with loose brown stool; dressing c/d/i no rebound, guarding. EXTREMITIES: 2+ pulses, warm, well-perfused, no edema. SKIN: Warm, dry, normal turgor, no rashes or lesions noted Laboratory Results - last 24 hr 10/09/18 10/10/18 10/10/18 17:30 05:30 05:30 WBC 13.7 H RBC 3.77 Hgb 10.0 L Hct 31.3 L MCV 83.0 MCH 26.5 MCHC 32.0 RDW 13.3 Plt Count 259 MPV 9.4 PTT (Actin FS) 35.1 Sodium 144 Potassium 3.8 Chloride 109 H Carbon Dioxide 27 Anion Gap 8 BUN 15 Creatinine 1.1 Creat Clearance w eGFR 49.25 Random Glucose 109 H Calcium 7.7 L Phosphorus Magnesium Total Bilirubin AST ALT Alkaline Phosphatase Total Protein Albumin 10/10/18 05:30 WBC RBC Hgb Hct MCV MCH MCHC RDW Plt Count MPV PTT (Actin FS) Sodium 145 Potassium 4.0 Chloride 111 H Carbon Dioxide 26 Anion Gap 7 L BUN 16 Creatinine 1.1 Creat Clearance w eGFR 49.25 Random Glucose 95 Calcium 7.7 L Phosphorus 2.4 L Magnesium 1.6 L Total Bilirubin 0.3 AST 21 ALT 18 Alkaline Phosphatase 96 Total Protein 4.5 L Albumin 1.6 L Active Medications Generic Name Dose Route Start Last Admin Trade Name Freq PRN Reason Stop Dose Admin Acetaminophen 1,000 mg 10/09/18 09:48 Ofirmev Injection - IVPB Q6H PRN PAIN LEVEL 1-5 Apixaban 5 mg 10/08/18 10:00 10/09/18 21:48 Eliquis - PO 5 mg BID THOMAS Administration Aripiprazole 5 mg 10/08/18 10:00 10/09/18 09:46 Abilify PO 5 mg DAILY THOMAS Administration Diltiazem HCl 10 mg 10/09/18 09:48 Cardizem Injection - IVPUSH Q4H PRN TACHYCARDIA Hydrochlorothiazide 25 mg 10/09/18 11:15 10/09/18 11:20 Hctz - PO 25 mg DAILY THOMAS Administration Meropenem 1 gm/ Dextrose 100 mls @ 200 mls/hr 10/09/18 10:00 10/10/18 03:00 IVPB 200 mls/hr Q8H-IV THOMAS Administration Dextrose 1,000 mls @ 125 mls/hr 10/09/18 19:21 10/10/18 04:00 D5w - IV 125 mls/hr ASDIR THOMAS Administration Levothyroxine Sodium 100 mcg 10/10/18 07:00 10/10/18 06:12 Synthroid - PO 100 mcg DAILY@0700 THOMAS Administration Metoprolol Tartrate 50 mg 10/09/18 14:00 10/10/18 06:13 Lopressor - PO Not Given TID ON LICENSE OF [facility] Ranitidine HCl 150 mg 10/09/18 10:00 10/09/18 21:48 Zantac - PO 150 mg BID THOMAS Administration Vancomycin HCl 1,000 mg 10/09/18 13:00 10/09/18 13:45 Vancomycin (Pre-Docked) IVPB 1,000 mg DAILY@1300 THOMAS Administration ASSESSMENT/PLAN: 67 y/o female with PMH of cholecystitis and bipolar disorder presented to the ED with abdominal pain and constipation since found to have a 5x4.3x3.4 oval shaped structure with air possible representing an inflamed diverticulum vs. a contained perforation #POD #8 ex-lap and small bowel resection -patient underwent ex-lap with small bowel resection and ostomy creation -peritoneal cx sent growing prevotella -meropenem day 8, vancomycin day 6; ID on board -f/u surgery recs -monitor hemodynamics -D5@ 2000mls/hr -WBC is downtrending -monitor ostomy output -IV tylenol for pain #New onset Afib -patient has been in sinus overnight however with HR in 70's-80's -metoprolol tartrate 50 TID with lopressor 5mg PRN -cardizem 10 mg PRN -started patienty on eliquis 5mg BID yesterday -cardio on board #Acute metabolic encephalopathy possibly 2/2 hypernatremia hypernatremia has now normalized; likely 2/2 to dehydration v. DI -monitor electrolytes -encourage PO intake #Bipolar Disorder -psych saw patient -patient on abilify; holding lithium for now #Hypothyroidism -c/w synthroid #MONIKA -likely 2/2 sepsis and injury; Cr downtrending -nephro on board -isotonic fluids -BMP q12 F/E/N D5 @125mls/hr monitor electrolytes; sodium restricted diet Problem List - Problems (1) Abdominal pain Code(s): R10.9 - UNSPECIFIED ABDOMINAL PAIN Qualifiers: Abdominal location: unspecified location Qualified Code(s): R10.9 - Unspecified abdominal pain (2) Abnormal CT scan, sigmoid colon Code(s): R93.3 - ABNORMAL FINDINGS ON DX IMAGING OF PRT DIGESTIVE TRACT (3) Bipolar disorder Code(s): F31.9 - BIPOLAR DISORDER, UNSPECIFIED Qualifiers: Active/Remission status: in remission of unspecified degree Qualified Code( s): F31.70 - Bipolar disorder, currently in remission, most recent episode unspecified Visit type - Emergency Visit Emergency Visit: Yes ED Registration Date: 09/28/18 Care time: The patient presented to the Emergency Department on the above date and was hospitalized for further evaluation of their emergent condition. - New Patient This patient is new to me today: No - Critical Care Critical Care patient: No
[2018-10-10] MEDS ORDERED: MAGNESIUM SULF 50% (8.12 MEQ/2 ML-1 GM VIAL) IVPB ONE (08:45)
[2018-10-10] MEDS: ARIPiprazole 5 MG TABLET (FP) PO SCH (09:41)
[2018-10-10] MEDS: APIXABAN 5 MG TABLET PO SCH ×2 (09:42→21:52)
[2018-10-10] MEDS: HYDROCHLOROTHIAZIDE 25 MG TABLET (FP) PO SCH (09:42)
[2018-10-10] MEDS: RANITIDINE HCL 150 MG TABLET (FP) PO SCH ×2 (09:43→21:52)
[2018-10-10] MEDS: NAPH,MB-DB/K PH,MBDB POWDER PACKET PO SCH (09:43)
--- NOTE | 2018-10-10 11:27 | PN ---
Teaching Attending Note Name of Resident: Valeria Fox ATTENDING PHYSICIAN STATEMENT I saw and evaluated the patient. I reviewed the resident's note and discussed the case with the resident. I agree with the resident's findings and plan as documented. SUBJECTIVE: Pt seen and examined in the ICU. No acute events overnight. Serum sodium continues to improve. OBJECTIVE: Vital Signs Period Temp Pulse Resp BP Sys/Choi Pulse Ox Last 24 Hr 97.6 F-99.6 F 57-65 16-25 112-139/58-81 94 Intake & Output 10/07/18 10/08/18 10/09/18 10/10/18 23:59 23:59 23:59 23:59 Intake Total 4830 4490 5830 2300 Output Total 4400 4400 3500 2000 Balance 295 11 8419 300 Weight 70.874 kg 68.691 kg 69.899 kg Gen: NAD at rest Heart: RRR Lung: decreased breath sounds at the bases Abd: soft, +ostomy pink with stool output Ext: no edema CBC, BMP 10/10/18 05:30 10/10/18 05:30 Active Medications Acetaminophen (Ofirmev Injection -) 1,000 mg IVPB Q6H PRN PRN Reason: PAIN LEVEL 1-5 Apixaban (Eliquis -) 5 mg PO BID [facility] Last Admin: 10/10/18 09:42 Dose: 5 mg Aripiprazole (Abilify) 5 mg PO DAILY [facility] Last Admin: 10/10/18 09:41 Dose: 5 mg Diltiazem HCl (Cardizem Injection -) 10 mg IVPUSH Q4H PRN PRN Reason: TACHYCARDIA Hydrochlorothiazide (Hctz -) 25 mg PO DAILY [facility] Last Admin: 10/10/18 09:42 Dose: 25 mg Meropenem 1 gm/ Dextrose 100 mls @ 200 mls/hr IVPB Q8H-IV THOMAS Last Admin: 10/10/18 10:24 Dose: 200 mls/hr Dextrose (D5w -) 1,000 mls @ 125 mls/hr IV ASDIR [facility] Last Admin: 10/10/18 08:54 Dose: 125 mls/hr Levothyroxine Sodium (Synthroid -) 100 mcg PO DAILY@0700 [facility] Last Admin: 10/10/18 06:12 Dose: 100 mcg Metoprolol Tartrate (Lopressor -) 50 mg PO TID [facility] Last Admin: 10/10/18 06:13 Dose: Not Given Potassium Phos/Sodium Phos (Phos-Nak Packet -) 1 packet PO DAILY [facility] Last Admin: 10/10/18 09:43 Dose: 1 packet Ranitidine HCl (Zantac -) 150 mg PO BID [facility] Last Admin: 10/10/18 09:43 Dose: 150 mg Vancomycin HCl (Vancomycin (Pre-Docked)) 1,000 mg IVPB DAILY@1300 [facility] Last Admin: 10/09/18 13:45 Dose: 1,000 mg ASSESSMENT AND PLAN: Perforated Sigmoid Colon/Peritonitis s/p Sigmoidectomy/Colostomy Paroxysmal Atrial Fibrillation LV Diastolic Dysfunction Acute on Chronic Renal Failure Hypernatremia - r/o Diabetes Insipidus HTN Hypothyroidism Bipolar Disorder on [place] - continue antibiotics - IVF per renal - monitor urine output, creatinine, lytes - rate controlled - continue anticoagulation - PO as tolerated - DVT prophylaxis - can monitor on floor
[2018-10-10] MEDS: VANCOMYCIN 1 GM in D5W (PRE-DOCKED) 1,000 MG/250 ML IVPB SCH (13:11)
--- NOTE | 2018-10-10 13:13 | PN ---
Progress Note, Physician History of Present Illness: Remains on OR POD#8 sigmoidectomy with colostomy (Sidra's procedure) for sigmoid stercoral perforation with peritonitis. Remains in NSR. Tolerating full diet. - Current Medication List Current Medications: Active Medications Acetaminophen (Ofirmev Injection -) 1,000 mg IVPB Q6H PRN PRN Reason: PAIN LEVEL 1-5 Apixaban (Eliquis -) 5 mg PO BID [facility] Last Admin: 10/10/18 09:42 Dose: 5 mg Aripiprazole (Abilify) 5 mg PO DAILY [facility] Last Admin: 10/10/18 09:41 Dose: 5 mg Diltiazem HCl (Cardizem Injection -) 10 mg IVPUSH Q4H PRN PRN Reason: TACHYCARDIA Hydrochlorothiazide (Hctz -) 25 mg PO DAILY [facility] Last Admin: 10/10/18 09:42 Dose: 25 mg Meropenem 1 gm/ Dextrose 100 mls @ 200 mls/hr IVPB Q8H-IV [facility] Last Admin: 10/10/18 10:24 Dose: 200 mls/hr Dextrose (D5w -) 1,000 mls @ 75 mls/hr IV ASDIR [facility] Last Admin: 10/10/18 12:05 Dose: 75 mls/hr Levothyroxine Sodium (Synthroid -) 100 mcg PO DAILY@0700 [facility] Last Admin: 10/10/18 06:12 Dose: 100 mcg Metoprolol Tartrate (Lopressor -) 50 mg PO TID [facility] Last Admin: 10/10/18 13:11 Dose: 50 mg Potassium Phos/Sodium Phos (Phos-Nak Packet -) 1 packet PO DAILY [facility] Last Admin: 10/10/18 09:43 Dose: 1 packet Ranitidine HCl (Zantac -) 150 mg PO BID [facility] Last Admin: 10/10/18 09:43 Dose: 150 mg Vancomycin HCl (Vancomycin (Pre-Docked)) 1,000 mg IVPB DAILY@1300 [facility] Last Admin: 10/10/18 13:11 Dose: 1,000 mg - Objective Vital Signs: Vital Signs Temperature 98.2 F 10/10/18 12:00 Pulse Rate 74 10/10/18 12:00 Respiratory Rate 22 H 10/10/18 12:00 Blood Pressure 118/78 10/10/18 12:00 O2 Sat by Pulse Oximetry (%) 94 L 10/09/18 20:31 Constitutional: Yes: No Distress, Calm, Thin Neck: Yes: Supple Cardiovascular: Yes: Regular Rate and Rhythm Respiratory: Yes: Regular, Diminished Gastrointestinal: Yes: Normal Bowel Sounds, Soft, Other (colostomy) Edema: No Labs: CBC, BMP 10/10/18 05:30 10/10/18 05:30 INR, PTT INR 1.32 (0.83-1.09) H 10/08/18 05:15 - ....Imaging EKG: Report Reviewed (Tele: NSR) Problem List - Problems (1) Diverticulitis of large intestine with perforation without abscess or bleeding Code(s): K57.20 - DVTRCLI OF LG INT W PERFORATION AND ABSCESS W/O BLEEDING (2) Hyperlipidemia Code(s): E78.5 - HYPERLIPIDEMIA, UNSPECIFIED Qualifiers: Hyperlipidemia type: unspecified Qualified Code(s): E78.5 - Hyperlipidemia , unspecified (3) Hypertension Code(s): I10 - ESSENTIAL (PRIMARY) HYPERTENSION Qualifiers: Hypertension type: essential hypertension Qualified Code(s): I10 - Essential (primary) hypertension (4) Hypothyroidism Code(s): E03.9 - HYPOTHYROIDISM, UNSPECIFIED Qualifiers: Hypothyroidism type: unspecified Qualified Code(s): E03.9 - Hypothyroidism , unspecified (5) Paroxysmal atrial fibrillation Code(s): I48.0 - PAROXYSMAL ATRIAL FIBRILLATION (6) History of open sigmoidectomy Code(s): Z98.890 - OTHER SPECIFIED POSTPROCEDURAL STATES; Z90.49 - ACQUIRED ABSENCE OF OTHER SPECIFIED PARTS OF DIGESTIVE TRACT Assessment/Plan 09/30/2018 Echo: Normal LV size and fxn LVEF 60-65%, mildly impaired LV compliance, normal RV fxn, normal atrial sizes, mild TR, trace-mild MR 1. POD#8 sigmoidectomy with colostomy (Sidra's procedure) for sigmoid stercoral perforation with peritonitis 2. Paroxysmal atrial fibrillation [id number] score of 3 currently on A/C/ Heparin 3. Diastolic LV dysfunction with clinical class 0 NYHA classification LV failure 4. Hypertension 5. Hypothyroidism 6. Bipolar disorder, paranoid behavior 7. Acute on CKD improved 8. Hypernatremia improving PLAN: 1. Continue Eliquis 5 bid 2. Continue Lopressor 50 tid, HCT 25 qd 3. Continue IV Cardizem as needed for rate control 4. Complete antibiotic course per the primary team 5. Ambulate as tolerated
--- NOTE | 2018-10-10 14:26 | PN ---
Progress Note, Physician History of Present Illness: patient stable looks better still confused present - Current Medication List Current Medications: Active Medications Acetaminophen (Ofirmev Injection -) 1,000 mg IVPB Q6H PRN PRN Reason: PAIN LEVEL 1-5 Apixaban (Eliquis -) 5 mg PO BID [facility] Last Admin: 10/10/18 09:42 Dose: 5 mg Aripiprazole (Abilify) 5 mg PO DAILY [facility] Last Admin: 10/10/18 09:41 Dose: 5 mg Diltiazem HCl (Cardizem Injection -) 10 mg IVPUSH Q4H PRN PRN Reason: TACHYCARDIA Hydrochlorothiazide (Hctz -) 25 mg PO DAILY [facility] Last Admin: 10/10/18 09:42 Dose: 25 mg Meropenem 1 gm/ Dextrose 100 mls @ 200 mls/hr IVPB Q8H-IV [facility] Last Admin: 10/10/18 10:24 Dose: 200 mls/hr Dextrose (D5w -) 1,000 mls @ 75 mls/hr IV ASDIR [facility] Last Admin: 10/10/18 12:05 Dose: 75 mls/hr Levothyroxine Sodium (Synthroid -) 100 mcg PO DAILY@0700 [facility] Last Admin: 10/10/18 06:12 Dose: 100 mcg Metoprolol Tartrate (Lopressor -) 50 mg PO TID [facility] Last Admin: 10/10/18 13:11 Dose: 50 mg Potassium Phos/Sodium Phos (Phos-Nak Packet -) 1 packet PO DAILY [facility] Last Admin: 10/10/18 09:43 Dose: 1 packet Ranitidine HCl (Zantac -) 150 mg PO BID [facility] Last Admin: 10/10/18 09:43 Dose: 150 mg Vancomycin HCl (Vancomycin (Pre-Docked)) 1,000 mg IVPB DAILY@1300 [facility] Last Admin: 10/10/18 13:11 Dose: 1,000 mg - Objective Vital Signs: Vital Signs Temperature 98.1 F 10/10/18 13:27 Pulse Rate 67 10/10/18 13:27 Respiratory Rate 20 10/10/18 13:27 Blood Pressure 123/87 10/10/18 13:27 O2 Sat by Pulse Oximetry (%) 94 L 10/09/18 20:31 Constitutional: Yes: Calm Eyes: Yes: Conjunctiva Clear Cardiovascular: Yes: Regular Rate and Rhythm Respiratory: Yes: Regular, CTA Bilaterally Gastrointestinal: Yes: Soft, Other (colostomy) Musculoskeletal: Yes: WNL Extremities: Yes: WNL Neurological: Yes: Alert, Other Psychiatric: Yes: Other Labs: CBC, BMP 10/10/18 05:30 10/10/18 05:30 INR, PTT INR 1.32 (0.83-1.09) H 10/08/18 05:15 Assessment/Plan - Problems (1) Diverticulitis of large intestine with perforation without abscess or bleeding Code(s): K57.20 - DVTRCLI OF LG INT W PERFORATION AND ABSCESS W/O BLEEDING (2) Suprapubic pain Code(s): R10.2 - PELVIC AND PERINEAL PAIN (3) Constipation Code(s): K59.00 - CONSTIPATION, UNSPECIFIED Qualifiers: Constipation type: other constipation type Qualified Code(s): K59.09 - Other constipation (4) Paroxysmal atrial fibrillation Code(s): I48.0 - PAROXYSMAL ATRIAL FIBRILLATION (5) Bipolar disorder Code(s): F31.9 - BIPOLAR DISORDER, UNSPECIFIED Qualifiers: Active/Remission status: in remission of unspecified degree Qualified Code( s): F31.70 - Bipolar disorder, currently in remission, most recent episode unspecified (6) Hypertension Code(s): I10 - ESSENTIAL (PRIMARY) HYPERTENSION Qualifiers: Hypertension type: essential hypertension Qualified Code(s): I10 - Essential (primary) hypertension (7) Hyperlipidemia Code(s): E78.5 - HYPERLIPIDEMIA, UNSPECIFIED Qualifiers: Hyperlipidemia type: unspecified Qualified Code(s): E78.5 - Hyperlipidemia , unspecified (8) Hypothyroidism Code(s): E03.9 - HYPOTHYROIDISM, UNSPECIFIED Qualifiers: Hypothyroidism type: unspecified Qualified Code(s): E03.9 - Hypothyroidism , unspecified (9) Hiatal hernia without gangrene or obstruction Code(s): K44.9 - DIAPHRAGMATIC HERNIA WITHOUT OBSTRUCTION OR GANGRENE plan hydration continue meropenam rest as per icu monitor colostomy wound care rest as per surgery once stable will deescalte cc 38 min
[2018-10-10] MEDS ORDERED: ACETAMINOPHEN 1000 MG/100 ML VIAL (NON FORMULARY) IVPB PRN (15:27)
[2018-10-10] MEDS ORDERED: dilTIAZem HCL 50 MG/10 ML - 10 ML VIAL IVPUSH PRN (15:27)
--- NOTE | 2018-10-10 16:40 | PN ---
Progress Note (short form) - Note Progress Note: Renal follow up for MONIKA Pt seen and examined in the ICU no acute complaints awake and alert drinking water Vital Signs Temperature 98.1 F 10/10/18 13:27 Pulse Rate 67 10/10/18 13:27 Respiratory Rate 20 10/10/18 13:27 Blood Pressure 123/87 10/10/18 13:27 O2 Sat by Pulse Oximetry (%) 94 L 10/09/18 20:31 NAD awake and alert No LE edema CBC, BMP 10/10/18 05:30 10/10/18 05:30 67 year old woman with hx of bipolar disorder, cholecystitis who presented with constipation and lower abd pain and found to have acute diverticulosis and new Afib with subsequent development of ileus with MONIKA. 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
--- NOTE | 2018-10-10 17:19 | PN ---
Teaching Attending Note Name of Resident: Yaima Baeza ATTENDING PHYSICIAN STATEMENT I saw and evaluated the patient. I reviewed the resident's note and discussed the case with the resident. I agree with the resident's findings and plan as documented. SUBJECTIVE:Patient awake and alert. No complaints. OBJECTIVE: Vital Signs Period Temp Pulse Resp BP Sys/Choi Pulse Ox Last 24 Hr 97.6 F-99.6 F 57-74 16-25 112-139/58-87 94 HEART: S1S2, RRR LUNGS: Clear ABDOMEN: Soft, non-tender, non-distended, normal BS, (+) colostomy with liquid brown stool in bag EXTREMITIES: Trace edema Laboratory Results - last 24 hr 10/09/18 10/10/18 10/10/18 17:30 05:30 05:30 WBC 13.7 H RBC 3.77 Hgb 10.0 L Hct 31.3 L MCV 83.0 MCH 26.5 MCHC 32.0 RDW 13.3 Plt Count 259 MPV 9.4 PTT (Actin FS) 35.1 Sodium 144 Potassium 3.8 Chloride 109 H Carbon Dioxide 27 Anion Gap 8 BUN 15 Creatinine 1.1 Creat Clearance w eGFR 49.25 Random Glucose 109 H Calcium 7.7 L Phosphorus Magnesium Total Bilirubin AST ALT Alkaline Phosphatase Total Protein Albumin 10/10/18 05:30 WBC RBC Hgb Hct MCV MCH MCHC RDW Plt Count MPV PTT (Actin FS) Sodium 145 Potassium 4.0 Chloride 111 H Carbon Dioxide 26 Anion Gap 7 L BUN 16 Creatinine 1.1 Creat Clearance w eGFR 49.25 Random Glucose 95 Calcium 7.7 L Phosphorus 2.4 L Magnesium 1.6 L Total Bilirubin 0.3 AST 21 ALT 18 Alkaline Phosphatase 96 Total Protein 4.5 L Albumin 1.6 L Current Medications Generic Name Dose Route Start Last Admin Trade Name Freq PRN Reason Stop Dose Admin Acetaminophen 1,000 mg 10/10/18 15:27 Ofirmev Injection - IVPB Q6H PRN PAIN LEVEL 1-5 Apixaban 5 mg 10/10/18 22:00 Eliquis - PO BID THOMAS Aripiprazole 5 mg 10/11/18 10:00 Abilify PO DAILY THOMAS Diltiazem HCl 10 mg 10/10/18 15:27 Cardizem Injection - IVPUSH Q4H PRN TACHYCARDIA Hydrochlorothiazide 25 mg 10/09/18 11:15 10/10/18 09:42 Hctz - PO 25 mg DAILY THOMAS Administration Dextrose 1,000 mls @ 75 mls/hr 10/10/18 12:04 10/10/18 12:05 D5w - IV 75 mls/hr ASDIR THOMAS Administration Meropenem 1 gm/ Dextrose 100 mls @ 200 mls/hr 10/10/18 18:00 IVPB Q8H-IV THOMAS Levothyroxine Sodium 100 mcg 10/11/18 07:00 Synthroid - PO DAILY@0700 THOMAS Metoprolol Tartrate 50 mg 10/10/18 22:00 Lopressor - PO TID THOMAS Potassium Phos/Sodium Phos 1 packet 10/10/18 10:00 10/10/18 09:43 Phos-Nak Packet - PO 1 packet DAILY [facility]OMAS Administration Ranitidine HCl 150 mg 10/10/18 22:00 Zantac - PO BID THOMAS Vancomycin HCl 1,000 mg 10/11/18 13:00 Vancomycin (Pre-Docked) IVPB DAILY@1300 [facility] ASSESSMENT AND PLAN: This is a 67 year old woman with a history of bipolar disorder, hypothyroidism who presented to the ED with abdominal pain and constipation. 1. Sepsis secondary to diverticulitis with localized perforation and peritonitis - Peritoneal culture grew Prevotella - s/p Sidra procedure 10/02 - Afebrile, WBC improving - Continue Merrem, Vancomycin 2. 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 Paroxysmal atrial fib - Remains in SR - Continue Lopressor, Eliquis 4. LV diastolic dysfunction - No evidence of heart failure 5. Hypokalemia - Improved 6. Acute kidney injury secondary to sepsis, hypovolemia - Improved 7. Acute metabolic encephalopathy - Multifactorial, including sepsis, hypernatremia, ICU psychosis - Improved 8. Bipolar disorder - Continue Abilify 9. Hypothyroidism - Continue Synthroid 10. HTN - Continue Lopressor, HCTZ 11. Disposition - Continue PT - Will likely need subacute rehab
[2018-10-10] MEDS ORDERED: PT OWN MED DRAWER 7, Y5N ONE ×2 (17:36→21:29)
--- NOTE | 2018-10-10 19:23 | PN ---
Progress Note, Physician History of Present Illness: s/p Sidra's procedure for OR findings of stercoral perforation with peritonitis abx per ID - duration? pt seen and examined in bed, was transferred to floor from ICU earlier today she is awake and appears more alert, states she is feeling ok, is present she is ready to eat dinner when exam is done pain is controlled, though she is briefly uncomfortable with dressing change tolerating diet - D5W at lower rate as per renal HCTZ daily sodium is improving, BUN/Cr also improving colostomy with liquid brown output, base partly intact but starting to leak medially Miguel with very light/clear urine lithium stopped, on abilify per psych - Current Medication List Current Medications: Active Medications Acetaminophen (Ofirmev Injection -) 1,000 mg IVPB Q6H PRN PRN Reason: PAIN LEVEL 1-5 Apixaban (Eliquis -) 5 mg PO BID THOMAS Aripiprazole (Abilify) 5 mg PO DAILY [facility] Diltiazem HCl (Cardizem Injection -) 10 mg IVPUSH Q4H PRN PRN Reason: TACHYCARDIA Hydrochlorothiazide (Hctz -) 25 mg PO DAILY [facility] Last Admin: 10/10/18 09:42 Dose: 25 mg Dextrose (D5w -) 1,000 mls @ 75 mls/hr IV ASDIR [facility] Last Admin: 10/10/18 12:05 Dose: 75 mls/hr Meropenem 1 gm/ Dextrose 100 mls @ 200 mls/hr IVPB Q8H-IV [facility] Last Admin: 10/10/18 17:48 Dose: 200 mls/hr Levothyroxine Sodium (Synthroid -) 100 mcg PO DAILY@0700 [facility] Metoprolol Tartrate (Lopressor -) 50 mg PO TID [facility] Potassium Phos/Sodium Phos (Phos-Nak Packet -) 1 packet PO DAILY [facility] Last Admin: 10/10/18 09:43 Dose: 1 packet Ranitidine HCl (Zantac -) 150 mg PO BID [facility] Vancomycin HCl (Vancomycin (Pre-Docked)) 1,000 mg IVPB DAILY@1300 [facility] - Objective Vital Signs: Vital Signs Temperature 98.1 F 10/10/18 13:27 Pulse Rate 67 10/10/18 13:27 Respiratory Rate 20 10/10/18 13:27 Blood Pressure 123/87 10/10/18 13:27 O2 Sat by Pulse Oximetry (%) 94 L 10/09/18 20:31 Constitutional: Yes: Well Nourished, No Distress, Calm Eyes: Yes: Conjunctiva Clear, EOM Intact HENT: Yes: Atraumatic, Normocephalic Gastrointestinal: Yes: Normal Bowel Sounds, Soft, Tenderness (minimal incisional ), Other (colostomy pink, mild edema, productive of liquid brown stool and gas) Genitourinary: Yes: Miguel Present. No: Hematuria Extremities: No: Cool, Cyanosis Integumentary: Yes: Incision (midline with dressing), Skin Tear (denuded skin between ostomy and midline - weeping/oozing slightly). No: Jaundice, Rash Wound/Incision: Yes: Cedrick Intact (between wounds), Dressing Dry and Intact ( little soiled on side of ostomy), Dressing Removed (and packing changed - 2x2 gauze in each wound, they are clean but slow to granulate), Draining (mild serous on dressings), Unapproximated (between cedrick). No: Reddened Neurological: Yes: Alert, Oriented (x2), Confusion (mild), Other (can manage cup and straw on her own, states she will need help with dinner) Labs: CBC, BMP 10/10/18 05:30 CMP Sodium 145 mmol/L (136-145) 10/10/18 05:30 Potassium 4.0 mmol/L (3.5-5.1) 10/10/18 05:30 Chloride 111 mmol/L (98-107) H 10/10/18 05:30 Carbon Dioxide 26 mmol/L (21-32) 10/10/18 05:30 Anion Gap 7 MMOL/L (8-16) L 10/10/18 05:30 BUN 16 mg/dL (7-18) 10/10/18 05:30 Creatinine 1.1 mg/dL (0.55-1.3) 10/10/18 05:30 Creat Clearance w eGFR 49.25 (>60) 10/10/18 05:30 Random Glucose 95 mg/dL (74-106) 10/10/18 05:30 Calcium 7.7 mg/dL (8.5-10.1) L 10/10/18 05:30 Phosphorus 2.4 mg/dL (2.5-4.9) L 10/10/18 05:30 Magnesium 1.6 mg/dL (1.8-2.4) L 10/10/18 05:30 Total Bilirubin 0.3 mg/dL (0.2-1) 10/10/18 05:30 AST 21 U/L (15-37) 10/10/18 05:30 ALT 18 U/L (13-61) 10/10/18 05:30 Alkaline Phosphatase 96 U/L (45-117) 10/10/18 05:30 Total Protein 4.5 g/dl (6.4-8.2) L 10/10/18 05:30 Albumin 1.6 g/dl (3.4-5.0) L 10/10/18 05:30 BUN/Cr lowest it's been Na, Cl down almost normal Phos, Mg a little low albumin very low - consider checking prealbumin Problem List - Problems (1) Perforation of sigmoid colon Assessment/Plan: POD8 s/p sigmoidectomy with colostomy (Sidra's procedure) for stercoral perforation of sigmoid with peritonitis pathology consistent with sigmoid perforation, serositis, margins viable one peritoneal fluid cx grew prevotella on antibiotics per ID - duration? 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 renal following - now getting HCTZ daily with improvement in sodium, UOP ad kleber free water/liquid intake, no caffeine tolerating diet colostomy functioning pain meds - prn tylenol PT seeing, pt will need rehab for wound care, colostomy care and physical therapy on discharge may need to get proper size convex appliance for ostomy incisions clean, wound dressings changed, sites are clean colostomy appliance base also changed for leaking - TEMPLATE LEFT FOR FUTURE USE Karaya paste used over denuded skin areas and allowed to dry skin prep used as well 57mm base and bag replaced monitor for softening of appliance medially and stool leakage, necessitating next change Code(s): K63.1 - PERFORATION OF INTESTINE (NONTRAUMATIC) (2) Stercoral ulcer of large intestine Code(s): K63.3 - ULCER OF INTESTINE (3) Stercolith Code(s): K56.41 - FECAL IMPACTION (4) Constipation Assessment/Plan: stool balls present in colon at OR, not many out yet, monitor for more solid output Code(s): K59.00 - CONSTIPATION, UNSPECIFIED Qualifiers: Constipation type: chronic idiopathic constipation Qualified Code(s): K59.04 - Chronic idiopathic constipation (5) Diabetes insipidus Assessment/Plan: 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 more alert and conversational today on D5W, weaning per renal, thiazide given with good results, to continue daily ad kleber free water and clear liquids po monitor closely - she is more independent with PO intake but still requires assistance with meals need to maintain free intake of fluids Code(s): E23.2 - DIABETES INSIPIDUS (6) Acute hypernatremia Assessment/Plan: almost normal Code(s): E87.0 - HYPEROSMOLALITY AND HYPERNATREMIA (7) Paroxysmal atrial fibrillation Assessment/Plan: echo results noted - mild diastolic dysfunction but normal EF cardiology following rate and rhythm controlled on eliquis keep lytes normal ? if should be on telemetry? Code(s): I48.0 - PAROXYSMAL ATRIAL FIBRILLATION (8) Bipolar disorder Assessment/Plan: lithium likely to have contributed to DI it has been stopped, on abilify per psych unclear if any alternative meds will be needed/appropriate for long-term use Code(s): F31.9 - BIPOLAR DISORDER, UNSPECIFIED Qualifiers: Active/Remission status: in remission of unspecified degree Qualified Code( s): F31.70 - Bipolar disorder, currently in remission, most recent episode unspecified (9) Hypertension Assessment/Plan: on po beta paige and HCTZ Code(s): I10 - ESSENTIAL (PRIMARY) HYPERTENSION Qualifiers: Hypertension type: essential hypertension Qualified Code(s): I10 - Essential (primary) hypertension (10) Hyperlipidemia Code(s): E78.5 - HYPERLIPIDEMIA, UNSPECIFIED Qualifiers: Hyperlipidemia type: unspecified Qualified Code(s): E78.5 - Hyperlipidemia , unspecified (11) Hypothyroidism Assessment/Plan: on po synthroid Code(s): E03.9 - HYPOTHYROIDISM, UNSPECIFIED Qualifiers: Hypothyroidism type: unspecified Qualified Code(s): E03.9 - Hypothyroidism , unspecified (12) Hiatal hernia without gangrene or obstruction Code(s): K44.9 - DIAPHRAGMATIC HERNIA WITHOUT OBSTRUCTION OR GANGRENE
[2018-10-10 19:35] LABS: ANION GAP 6 MMOL/L (8-16); BLOOD UREA NITROGEN 15 mg/dL (7-18); CALCIUM 7.8 mg/dL (8.5-10.1); CHLORIDE 107 mmol/L (98-107); CO2 28 mmol/L (21-32); CREATININE 1.1 mg/dL (0.55-1.3); GLUCOSE,RANDOM 100 mg/dL (74-106); POTASSIUM 4.1 mmol/L (3.5-5.1); SODIUM 141 mmol/L (136-145)
[2018-10-11] MEDS: DEXTROSE 5%-WATER - 1,000 ML IV SCH (02:34)
[2018-10-11] MEDS: MEROPENEM 1 GM in DEXTROSE 5%-WATER 100 ML IVPB SCH ×2 (02:34→10:12)
[2018-10-11] MEDS: METOPROLOL TARTRATE 50 MG TABLET (FP) PO SCH ×3 (06:43→21:40)
[2018-10-11] MEDS: LEVOTHYROXINE NA 100 MCG TABLET (FP) PO SCH (06:43)
[2018-10-11 07:00] LABS: BASO % 0.9 % (0-2.0); EOS % 2.8 % (0-4.5); HEMATOCRIT 31.1 % (32.4-45.2); HEMOGLOBIN 9.9 GM/dL (10.7-15.3); LYMPH % 10.3 % (8-40); MCH 26.2 pg (25.7-33.7); MCHC 31.8 g/dl (32.0-36.0); MEAN CELL VOLUME 82.4 fl (80-96); MEAN PLT VOLUME 9.8 fl (7.5-11.1); MONO % 9.1 % (3.8-10.2); NEUT % 76.9 % (42.8-82.8); PLATELET COUNT 260 K/MM3 (134-434); RBC 3.78 M/mm3 (3.60-5.2); RDW 13.6 % (11.6-15.6); WHITE BLOOD COUNT 11.6 K/mm3 (4.0-10.0)
[2018-10-11 07:16] LABS: ALBUMIN 1.8 g/dl (3.4-5.0); ALK PHOS 98 U/L (45-117); ANION GAP 5 MMOL/L (8-16); BILIRUBIN,TOTAL 0.4 mg/dL (0.2-1); BLOOD UREA NITROGEN 16 mg/dL (7-18); CALCIUM 7.8 mg/dL (8.5-10.1); CHLORIDE 110 mmol/L (98-107); CO2 28 mmol/L (21-32); CREATININE 1.1 mg/dL (0.55-1.3); GLUCOSE,RANDOM 91 mg/dL (74-106); MAGNESIUM 2.2 mg/dL (1.8-2.4); PHOSPHOROUS 2.7 mg/dL (2.5-4.9); POTASSIUM 4.3 mmol/L (3.5-5.1); SGOT/AST 23 U/L (15-37); SGPT/ALT 21 U/L (13-61); SODIUM 143 mmol/L (136-145); TOT PROT 4.9 g/dl (6.4-8.2)
--- NOTE | 2018-10-11 07:42 | PN ---
Physical Exam: SUBJECTIVE: Patient seen and examined at bedside- no acute events overnight; patient is transferred to the regular floors; she is A &O x3 this morning- she is tolerating her diet well and denying any abdominal pain/CP/SOB/N/V fevers or chills OBJECTIVE: Vital Signs Period Temp Pulse Resp BP Sys/Choi Pulse Ox Last 24 Hr 97.6 F-98.7 F 61-74 20-23 118-139/67-87 95 GENERAL: The patient is awake, alert, A&O x3, in no acute distress. EYES: no scleral icterus. . NECK: no JVD, no lymphadenopathy LUNGS:CTA B/L; no rales, rhonchi or wheezing. HEART: Regular rate and rhythm, S1, S2 without murmur, rub or gallop. ABDOMEN: Soft, nontender, nondistended, normoactive bowel sounds, colostomy bag in place with loose brown stool; midline dressing c/d/i EXTREMITIES: 2+ pulses, warm, well-perfused, no edema. PSYCH: Normal mood, normal affect. SKIN: Warm, dry, normal turgor, no rashes or lesions noted Laboratory Results - last 24 hr 10/10/18 10/11/18 10/11/18 18:00 06:00 06:00 WBC 11.6 H RBC 3.78 Hgb 9.9 L Hct 31.1 L MCV 82.4 MCH 26.2 MCHC 31.8 L RDW 13.6 Plt Count 260 MPV 9.8 Absolute Neuts (auto) 8.9 H Neutrophils % 76.9 Lymphocytes % 10.3 D Monocytes % 9.1 D Eosinophils % 2.8 Basophils % 0.9 D Nucleated RBC % 0 Sodium 141 143 Potassium 4.1 4.3 Chloride 107 110 H Carbon Dioxide 28 28 Anion Gap 6 L 5 L BUN 15 16 Creatinine 1.1 1.1 Creat Clearance w eGFR 49.25 49.25 Random Glucose 100 91 Calcium 7.8 L 7.8 L Phosphorus 2.7 Magnesium 2.2 Total Bilirubin 0.4 AST 23 ALT 21 Alkaline Phosphatase 98 Total Protein 4.9 L Albumin 1.8 L Active Medications Generic Name Dose Route Start Last Admin Trade Name Freq PRN Reason Stop Dose Admin Acetaminophen 1,000 mg 10/10/18 15:27 Ofirmev Injection - IVPB Q6H PRN PAIN LEVEL 1-5 Apixaban 5 mg 10/10/18 22:00 10/10/18 21:52 Eliquis - PO 5 mg BID THOMAS Administration Aripiprazole 5 mg 10/11/18 10:00 Abilify PO DAILY [facility] Diltiazem HCl 10 mg 10/10/18 15:27 Cardizem Injection - IVPUSH Q4H PRN TACHYCARDIA Hydrochlorothiazide 25 mg 10/09/18 11:15 10/10/18 09:42 Hctz - PO 25 mg DAILY THOMAS Administration Dextrose 1,000 mls @ 75 mls/hr 10/10/18 12:04 10/11/18 02:34 D5w - IV 75 mls/hr ASDIR THOMAS Administration Meropenem 1 gm/ Dextrose 100 mls @ 200 mls/hr 10/10/18 18:00 10/11/18 02:34 IVPB 200 mls/hr Q8H-IV THOMAS Administration Levothyroxine Sodium 100 mcg 10/11/18 07:00 10/11/18 06:43 Synthroid - PO 100 mcg DAILY@0700 [facility] Administration Metoprolol Tartrate 50 mg 10/10/18 22:00 10/11/18 06:43 Lopressor - PO 50 mg TID THOMAS Administration Potassium Phos/Sodium Phos 1 packet 10/10/18 10:00 10/10/18 09:43 Phos-Nak Packet - PO 1 packet DAILY [facility] Administration Ranitidine HCl 150 mg 10/10/18 22:00 10/10/18 21:52 Zantac - PO 150 mg BID THOMAS Administration Vancomycin HCl 1,000 mg 10/11/18 13:00 Vancomycin (Pre-Docked) IVPB DAILY@1300 [facility] ASSESSMENT/PLAN: 67 y/o female with PMH of cholecystitis and bipolar disorder presented to the ED with abdominal pain and constipation since found to have a 5x4.3x3.4 oval shaped structure with air possible representing an inflamed diverticulum vs. a contained perforation #POD #9 ex-lap and small bowel resection -patient underwent ex-lap with small bowel resection and ostomy creation -peritoneal cx sent growing prevotella -meropenem day 9, vancomycin day 7; ID on board -f/u surgery recs -monitor hemodynamics -D5@ 2000mls/hr -WBC is downtrending -monitor ostomy output -IV tylenol for pain #New onset Afib -patient has been in sinus overnight however with HR in 70's-80's -metoprolol tartrate 50 TID with lopressor 5mg PRN -cardizem 10 mg PRN -started patienty on eliquis 5mg BID yesterday -cardio on board #Acute metabolic encephalopathy possibly 2/2 hypernatremia hypernatremia has now normalized; likely 2/2 to dehydration v. DI -c/w HCTZ -monitor urine output -D5@75cc/hr -monitor electrolytes -encourage PO intake #Bipolar Disorder -psych saw patient -patient on abilify; holding lithium for now #Hypothyroidism -c/w synthroid #MONIKA -likely 2/2 sepsis and injury; Cr downtrending -nephro on board -isotonic fluids -BMP q12 F/E/N D5 @75mls/hr monitor electrolytes; sodium restricted diet-dietary consulted Problem List - Problems (1) Abdominal pain Code(s): R10.9 - UNSPECIFIED ABDOMINAL PAIN Qualifiers: Abdominal location: unspecified location Qualified Code(s): R10.9 - Unspecified abdominal pain (2) Abnormal CT scan, sigmoid colon Code(s): R93.3 - ABNORMAL FINDINGS ON DX IMAGING OF PRT DIGESTIVE TRACT (3) Bipolar disorder Code(s): F31.9 - BIPOLAR DISORDER, UNSPECIFIED Qualifiers: Active/Remission status: in remission of unspecified degree Qualified Code( s): F31.70 - Bipolar disorder, currently in remission, most recent episode unspecified Visit type - Emergency Visit Emergency Visit: Yes ED Registration Date: 09/28/18 Care time: The patient presented to the Emergency Department on the above date and was hospitalized for further evaluation of their emergent condition. - New Patient This patient is new to me today: No - Critical Care Critical Care patient: No
--- NOTE | 2018-10-11 09:34 | PN ---
Progress Note, Physician History of Present Illness: Remains on ID POD#9 sigmoidectomy with colostomy (Sidra's procedure) for sigmoid stercoral perforation with peritonitis. Remains in NSR. Tolerating regular diet. - Current Medication List Current Medications: Active Medications Acetaminophen (Ofirmev Injection -) 1,000 mg IVPB Q6H PRN PRN Reason: PAIN LEVEL 1-5 Apixaban (Eliquis -) 5 mg PO BID [facility] Last Admin: 10/10/18 21:52 Dose: 5 mg Aripiprazole (Abilify) 5 mg PO DAILY [facility] Diltiazem HCl (Cardizem Injection -) 10 mg IVPUSH Q4H PRN PRN Reason: TACHYCARDIA Hydrochlorothiazide (Hctz -) 25 mg PO DAILY [facility] Last Admin: 10/10/18 09:42 Dose: 25 mg Dextrose (D5w -) 1,000 mls @ 75 mls/hr IV ASDIR [facility] Last Admin: 10/11/18 02:34 Dose: 75 mls/hr Meropenem 1 gm/ Dextrose 100 mls @ 200 mls/hr IVPB Q8H-IV [facility] Last Admin: 10/11/18 02:34 Dose: 200 mls/hr Levothyroxine Sodium (Synthroid -) 100 mcg PO DAILY@0700 [facility] Last Admin: 10/11/18 06:43 Dose: 100 mcg Metoprolol Tartrate (Lopressor -) 50 mg PO TID [facility] Last Admin: 10/11/18 06:43 Dose: 50 mg Potassium Phos/Sodium Phos (Phos-Nak Packet -) 1 packet PO DAILY [facility] Last Admin: 10/10/18 09:43 Dose: 1 packet Ranitidine HCl (Zantac -) 150 mg PO BID [facility] Last Admin: 10/10/18 21:52 Dose: 150 mg Vancomycin HCl (Vancomycin (Pre-Docked)) 1,000 mg IVPB DAILY@1300 [facility] - Objective Vital Signs: Vital Signs Temperature 98.7 F 10/11/18 06:00 Pulse Rate 65 10/11/18 06:00 Respiratory Rate 20 10/11/18 06:00 Blood Pressure 130/77 10/11/18 06:00 O2 Sat by Pulse Oximetry (%) 95 10/10/18 21:00 Constitutional: Yes: No Distress, Calm, Thin Neck: Yes: Supple Cardiovascular: Yes: Regular Rate and Rhythm Respiratory: Yes: Regular, Diminished Gastrointestinal: Yes: Normal Bowel Sounds, Soft, Other (Colostomy intact) Edema: No Labs: CBC, BMP 10/11/18 06:00 10/11/18 06:00 INR, PTT INR 1.32 (0.83-1.09) H 10/08/18 05:15 Problem List - Problems (1) Diverticulitis of large intestine with perforation without abscess or bleeding Code(s): K57.20 - DVTRCLI OF LG INT W PERFORATION AND ABSCESS W/O BLEEDING (2) Hyperlipidemia Code(s): E78.5 - HYPERLIPIDEMIA, UNSPECIFIED Qualifiers: Hyperlipidemia type: unspecified Qualified Code(s): E78.5 - Hyperlipidemia , unspecified (3) Hypertension Code(s): I10 - ESSENTIAL (PRIMARY) HYPERTENSION Qualifiers: Hypertension type: essential hypertension Qualified Code(s): I10 - Essential (primary) hypertension (4) Hypothyroidism Code(s): E03.9 - HYPOTHYROIDISM, UNSPECIFIED Qualifiers: Hypothyroidism type: unspecified Qualified Code(s): E03.9 - Hypothyroidism , unspecified (5) Paroxysmal atrial fibrillation Code(s): I48.0 - PAROXYSMAL ATRIAL FIBRILLATION (6) History of open sigmoidectomy Code(s): Z98.890 - OTHER SPECIFIED POSTPROCEDURAL STATES; Z90.49 - ACQUIRED ABSENCE OF OTHER SPECIFIED PARTS OF DIGESTIVE TRACT Assessment/Plan 09/30/2018 Echo: Normal LV size and fxn LVEF 60-65%, mildly impaired LV compliance, normal RV fxn, normal atrial sizes, mild TR, trace-mild MR 1. POD#9 sigmoidectomy with colostomy (Sidra's procedure) for sigmoid stercoral perforation with peritonitis 2. Paroxysmal atrial fibrillation [id number] score of 3 currently on Eliquis 3. Diastolic LV dysfunction with clinical class 0 NYHA classification LV failure 4. Hypertension 5. Hypothyroidism 6. Bipolar disorder, paranoid behavior 7. Acute on CKD due to renal hypoperfusion improved 8. 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 Continue Eliquis 5 bid 2. Continue Lopressor 50 tid, HCTZ 25 qd 3. Continue IV Cardizem as needed for rate control 4. Complete antibiotic course per the primary team 5. Ambulate as tolerated
[2018-10-11 09:57] LABS: ACANTHOCYTES 0; ANISOCYTOSIS 0; HELMET CELLS 0; HOWELL-JOLLY BODIES 0; MACROCYTOSIS 0; OVALOCYTE 0; PLATELET ESTIMATE NORMAL; ROULEAU 0; SICKELED CELLS 0; TARGET CELLS 0; TEAR DROP CELLS 0; TOXIC GRANULATION 0
[2018-10-11] MEDS: APIXABAN 5 MG TABLET PO SCH ×2 (10:12→21:40)
[2018-10-11] MEDS: ARIPiprazole 5 MG TABLET (FP) PO SCH (10:13)
[2018-10-11] MEDS: RANITIDINE HCL 150 MG TABLET (FP) PO SCH ×2 (10:47→21:40)
[2018-10-11] MEDS: NAPH,MB-DB/K PH,MBDB POWDER PACKET PO SCH (10:47)
[2018-10-11] MEDS: HYDROCHLOROTHIAZIDE 25 MG TABLET (FP) PO SCH (10:47)
[2018-10-11] MEDS ORDERED: INSULIN (NOVOLOG) ASPART 100 UNITS/ML 10ML VIAL ONE (10:59)
--- NOTE | 2018-10-11 11:45 | PN ---
Progress Note (short form) - Note Progress Note: Renal follow up for MONIKA Pt seen and examined in the ICU awake and alert no acute complaints no sob, cp, abd pain Vital Signs Temperature 98.4 F 10/11/18 10:00 Pulse Rate 68 10/11/18 10:00 Respiratory Rate 20 10/11/18 10:00 Blood Pressure 117/75 10/11/18 10:00 O2 Sat by Pulse Oximetry (%) 95 10/10/18 21:00 Intake & Output 10/08/18 10/09/18 10/10/18 10/11/18 23:59 23:59 23:59 23:59 Intake Total 4490 5830 4650 900 Output Total 4400 3500 5900 2200 Balance 90 2330 -1250 -1300 Weight 70.874 kg 68.691 kg 69.899 kg NAD awake and alert neck supple No LE edema CBC, BMP 10/11/18 06:00 10/11/18 06:00 Current Medications Acetaminophen (Ofirmev Injection -) 1,000 mg IVPB Q6H PRN PRN Reason: PAIN LEVEL 1-5 Apixaban (Eliquis -) 5 mg PO BID [facility] Last Admin: 10/11/18 10:12 Dose: 5 mg Aripiprazole (Abilify) 5 mg PO DAILY [facility] Last Admin: 10/11/18 10:13 Dose: 5 mg Diltiazem HCl (Cardizem Injection -) 10 mg IVPUSH Q4H PRN PRN Reason: TACHYCARDIA Hydrochlorothiazide (Hctz -) 25 mg PO DAILY [facility] Last Admin: 10/11/18 10:47 Dose: 25 mg Meropenem 1 gm/ Dextrose 100 mls @ 200 mls/hr IVPB Q8H-IV [facility] Last Admin: 10/11/18 10:12 Dose: 200 mls/hr Levothyroxine Sodium (Synthroid -) 100 mcg PO DAILY@0700 [facility] Last Admin: 10/11/18 06:43 Dose: 100 mcg Metoprolol Tartrate (Lopressor -) 50 mg PO TID [facility] Last Admin: 10/11/18 06:43 Dose: 50 mg Potassium Phos/Sodium Phos (Phos-Nak Packet -) 1 packet PO DAILY [facility] Last Admin: 10/11/18 10:47 Dose: 1 packet Ranitidine HCl (Zantac -) 150 mg PO BID [facility] Last Admin: 10/11/18 10:47 Dose: 150 mg Vancomycin HCl (Vancomycin (Pre-Docked)) 1,000 mg IVPB DAILY@1300 [facility] 67 year old woman with hx of bipolar disorder, cholecystitis who presented with constipation and lower abd pain and found to have acute diverticulosis and new Afib with subsequent development of ileus with MONIKA. 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
[2018-10-11] MEDS ORDERED: VANCOMYCIN 1 GM in D5W (PRE-DOCKED) 1,000 MG/250 ML IVPB SCH (13:00)
--- NOTE | 2018-10-11 13:44 | PN ---
Progress Note, Physician History of Present Illness: patient stable confusion much better no complaints colostomy fning - Current Medication List Current Medications: Active Medications Acetaminophen (Ofirmev Injection -) 1,000 mg IVPB Q6H PRN PRN Reason: PAIN LEVEL 1-5 Apixaban (Eliquis -) 5 mg PO BID [facility] Last Admin: 10/11/18 10:12 Dose: 5 mg Aripiprazole (Abilify) 5 mg PO DAILY [facility] Last Admin: 10/11/18 10:13 Dose: 5 mg Diltiazem HCl (Cardizem Injection -) 10 mg IVPUSH Q4H PRN PRN Reason: TACHYCARDIA Hydrochlorothiazide (Hctz -) 25 mg PO DAILY [facility] Last Admin: 10/11/18 10:47 Dose: 25 mg Meropenem 1 gm/ Dextrose 100 mls @ 200 mls/hr IVPB Q8H-IV [facility] Last Admin: 10/11/18 10:12 Dose: 200 mls/hr Levothyroxine Sodium (Synthroid -) 100 mcg PO DAILY@0700 [facility] Last Admin: 10/11/18 06:43 Dose: 100 mcg Metoprolol Tartrate (Lopressor -) 50 mg PO TID [facility] Last Admin: 10/11/18 06:43 Dose: 50 mg Potassium Phos/Sodium Phos (Phos-Nak Packet -) 1 packet PO DAILY [facility] Last Admin: 10/11/18 10:47 Dose: 1 packet Ranitidine HCl (Zantac -) 150 mg PO BID [facility] Last Admin: 10/11/18 10:47 Dose: 150 mg Vancomycin HCl (Vancomycin (Pre-Docked)) 1,000 mg IVPB DAILY@1300 [facility] Last Admin: 10/11/18 12:24 Dose: 1,000 mg - Objective Vital Signs: Vital Signs Temperature 98.4 F 10/11/18 10:00 Pulse Rate 68 10/11/18 10:00 Respiratory Rate 20 10/11/18 10:00 Blood Pressure 117/75 10/11/18 10:00 O2 Sat by Pulse Oximetry (%) 95 10/10/18 21:00 Constitutional: Yes: No Distress, Calm Cardiovascular: Yes: Regular Rate and Rhythm Respiratory: Yes: Regular, CTA Bilaterally Gastrointestinal: Yes: Soft, Other (colostomy fning) Musculoskeletal: Yes: WNL Extremities: Yes: WNL Neurological: Yes: Alert Psychiatric: Yes: Alert Labs: CBC, BMP 10/11/18 06:00 10/11/18 06:00 INR, PTT INR 1.32 (0.83-1.09) H 10/08/18 05:15 Assessment/Plan - Problems (1) Diverticulitis of large intestine with perforation without abscess or bleeding Code(s): K57.20 - DVTRCLI OF LG INT W PERFORATION AND ABSCESS W/O BLEEDING (2) Suprapubic pain Code(s): R10.2 - PELVIC AND PERINEAL PAIN (3) Constipation Code(s): K59.00 - CONSTIPATION, UNSPECIFIED Qualifiers: Constipation type: other constipation type Qualified Code(s): K59.09 - Other constipation (4) Paroxysmal atrial fibrillation Code(s): I48.0 - PAROXYSMAL ATRIAL FIBRILLATION (5) Bipolar disorder Code(s): F31.9 - BIPOLAR DISORDER, UNSPECIFIED Qualifiers: Active/Remission status: in remission of unspecified degree Qualified Code( s): F31.70 - Bipolar disorder, currently in remission, most recent episode unspecified (6) Hypertension Code(s): I10 - ESSENTIAL (PRIMARY) HYPERTENSION Qualifiers: Hypertension type: essential hypertension Qualified Code(s): I10 - Essential (primary) hypertension (7) Hyperlipidemia Code(s): E78.5 - HYPERLIPIDEMIA, UNSPECIFIED Qualifiers: Hyperlipidemia type: unspecified Qualified Code(s): E78.5 - Hyperlipidemia , unspecified (8) Hypothyroidism Code(s): E03.9 - HYPOTHYROIDISM, UNSPECIFIED Qualifiers: Hypothyroidism type: unspecified Qualified Code(s): E03.9 - Hypothyroidism , unspecified (9) Hiatal hernia without gangrene or obstruction Code(s): K44.9 - DIAPHRAGMATIC HERNIA WITHOUT OBSTRUCTION OR GANGRENE plan continue current mgmt will stop abx and monitor rest as per the team and surgery
--- NOTE | 2018-10-11 15:13 | PN ---
Progress Note, Physician History of Present Illness: s/p Sidra's procedure for OR findings of stercoral perforation with peritonitis abx per ID - duration? 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, but states she will try to eat more D5W d/c'd today by renal HCTZ daily sodium is improving, BUN/Cr also improving colostomy with liquid brown output, base intact but soft medially Miguel with very light/clear urine - Current Medication List Current Medications: Active Medications Acetaminophen (Ofirmev Injection -) 1,000 mg IVPB Q6H PRN PRN Reason: PAIN LEVEL 1-5 Apixaban (Eliquis -) 5 mg PO BID [facility] Last Admin: 10/11/18 10:12 Dose: 5 mg Aripiprazole (Abilify) 5 mg PO DAILY [facility] Last Admin: 10/11/18 10:13 Dose: 5 mg Diltiazem HCl (Cardizem Injection -) 10 mg IVPUSH Q4H PRN PRN Reason: TACHYCARDIA Hydrochlorothiazide (Hctz -) 25 mg PO DAILY [facility] Last Admin: 10/11/18 10:47 Dose: 25 mg Levothyroxine Sodium (Synthroid -) 100 mcg PO DAILY@0700 [facility] Last Admin: 10/11/18 06:43 Dose: 100 mcg Metoprolol Tartrate (Lopressor -) 50 mg PO TID [facility] Last Admin: 10/11/18 06:43 Dose: 50 mg Potassium Phos/Sodium Phos (Phos-Nak Packet -) 1 packet PO DAILY [facility] Last Admin: 10/11/18 10:47 Dose: 1 packet Ranitidine HCl (Zantac -) 150 mg PO BID [facility] Last Admin: 10/11/18 10:47 Dose: 150 mg - Objective Vital Signs: Vital Signs Temperature 98.4 F 10/11/18 10:00 Pulse Rate 68 10/11/18 10:00 Respiratory Rate 20 10/11/18 10:00 Blood Pressure 117/75 10/11/18 10:00 O2 Sat by Pulse Oximetry (%) 97 10/11/18 09:00 Constitutional: Yes: Well Nourished, No Distress, Calm Eyes: Yes: Conjunctiva Clear, EOM Intact HENT: Yes: Atraumatic, Normocephalic Gastrointestinal: Yes: Normal Bowel Sounds, Soft, Tenderness (incisional with dressing change), Other (colostomy pink, patent, productive of gas and liquid brown stool). No: Distention Genitourinary: Yes: Miguel Present. No: Hematuria Extremities: Yes: Erythema (with some edema and resolving ecchymoses on medial arms, R>L, from old IV sites). No: Cool, Cyanosis Integumentary: Yes: Incision (midline with dressings), Skin Tear (denuded skin areas under edge of ostomy appliance medially). No: Jaundice, Rash Wound/Incision: Yes: [place] Intact (between cedrick), Dressing Dry and Intact ( with some staining medially from edge of ostomy base/soft paste; mostly serous drainage on gauze), Dressing Removed (and wounds repacked with 2x2 gauze, covered with folded gauze, abd and tape), Unapproximated (between cedrick, wounds turning redder but not really granulating yet). 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 Tapia and residents) incisions clean, wound dressings changed, sites are clean daily wound care - 2x2 gauze into each site, covered by folded gauze, abd and tape to secure may need to get proper size convex appliance for ostomy Code(s): K63.1 - PERFORATION OF INTESTINE (NONTRAUMATIC) (2) Stercoral ulcer of large intestine Code(s): K63.3 - ULCER OF INTESTINE (3) Stercolith Code(s): K56.41 - FECAL IMPACTION (4) Constipation Code(s): K59.00 - CONSTIPATION, UNSPECIFIED Qualifiers: Constipation type: chronic idiopathic constipation Qualified Code(s): K59.04 - Chronic idiopathic constipation (5) Diabetes insipidus Assessment/Plan: 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 more alert and conversational today, still somewhat confused D5W stopped today per renal thiazide daily ad kleber free water and clear liquids po monitor closely - she is more independent with PO intake but still requires assistance with meals need to maintain free intake of fluids Code(s): E23.2 - DIABETES INSIPIDUS (6) Acute hypernatremia Assessment/Plan: normalized Code(s): E87.0 - HYPEROSMOLALITY AND HYPERNATREMIA (7) Paroxysmal atrial fibrillation Assessment/Plan: echo results noted - mild diastolic dysfunction but normal EF cardiology following rate and rhythm controlled on eliquis keep lytes normal ? if should be on telemetry? Code(s): I48.0 - PAROXYSMAL ATRIAL FIBRILLATION (8) Bipolar disorder Assessment/Plan: lithium likely to have contributed to DI it has been stopped, on abilify per psych unclear if any alternative meds will be needed/appropriate for long-term use Code(s): F31.9 - BIPOLAR DISORDER, UNSPECIFIED Qualifiers: Active/Remission status: in remission of unspecified degree Qualified Code( s): F31.70 - Bipolar disorder, currently in remission, most recent episode unspecified (9) Hypertension Assessment/Plan: on po beta paige and HCTZ Code(s): I10 - ESSENTIAL (PRIMARY) HYPERTENSION Qualifiers: Hypertension type: essential hypertension Qualified Code(s): I10 - Essential (primary) hypertension (10) Hyperlipidemia Code(s): E78.5 - HYPERLIPIDEMIA, UNSPECIFIED Qualifiers: Hyperlipidemia type: unspecified Qualified Code(s): E78.5 - Hyperlipidemia , unspecified (11) Hypothyroidism Assessment/Plan: on po synthroid Code(s): E03.9 - HYPOTHYROIDISM, UNSPECIFIED Qualifiers: Hypothyroidism type: unspecified Qualified Code(s): E03.9 - Hypothyroidism , unspecified (12) Hiatal hernia without gangrene or obstruction Code(s): K44.9 - DIAPHRAGMATIC HERNIA WITHOUT OBSTRUCTION OR GANGRENE
--- NOTE | 2018-10-11 16:13 | PN ---
Teaching Attending Note Name of Resident: Yaima Baeza ATTENDING PHYSICIAN STATEMENT I saw and evaluated the patient. I reviewed the resident's note and discussed the case with the resident. I agree with the resident's findings and plan as documented. SUBJECTIVE: Feeling well. No further abdominal pain. No fever/chills. Still confused. OBJECTIVE: Afebrile, Hemodynamically stable. Last Vital Signs Temp Pulse Resp BP Pulse Ox 98.4 F 68 20 117/75 97 10/11/18 10:00 10/11/18 10:00 10/11/18 10:00 10/11/18 10:00 10/11/18 09:00 Neuro AAO x 1-2. Moving all 4 extremities HEENT - Atraumatic, Normocephalic. Heart - S1, S2, RRR Lungs - clear to auscultation Abdomen - surgical site dressed. Colostomy with soft brown stool. Abdomen soft. Bowel Sounds normal. Extremities - no edema. No calf tenderness. Laboratory Results - last 24 hr 10/10/18 10/11/18 10/11/18 18:00 06:00 06:00 WBC 11.6 H RBC 3.78 Hgb 9.9 L Hct 31.1 L MCV 82.4 MCH 26.2 MCHC 31.8 L RDW 13.6 Plt Count 260 MPV 9.8 Absolute Neuts (auto) 8.9 H Neutrophils % 76.9 Neutrophils % (Manual) 80.8 Band Neutrophils % 1.0 Lymphocytes % 10.3 D Lymphocytes % (Manual) 8.1 D Monocytes % 9.1 D Monocytes % (Manual) 6 D Eosinophils % 2.8 Eosinophils % (Manual) 2.0 D Basophils % 0.9 D Basophils % (Manual) 0.0 Myelocytes % (Man) 1 Promyelocytes % (Man) 0 Blast Cells % (Manual) 0 Nucleated RBC % 0 Metamyelocytes 0 Hypochromia 0 Toxic Granulation 0 Dohle Bodies 0 Platelet Estimate Normal Polychromasia 0 Poikilocytosis 0 Basophilic Stippling 0 Anisocytosis 0 Microcytosis 0 Macrocytosis 0 Spherocytes 0 Sickle Cells 0 Target Cells 0 Tear Drop Cells 0 Ovalocytes 0 Stomatocytes 0 Helmet Cells 0 [place] Bodies 0 [place] Rings 0 Branden Cells 0 Acanthocytes (Spur) 0 Rouleaux 0 Fragmented RBCs 0 Schistocytes 0 Sodium 141 143 Potassium 4.1 4.3 Chloride 107 110 H Carbon Dioxide 28 28 Anion Gap 6 L 5 L BUN 15 16 Creatinine 1.1 1.1 Creat Clearance w eGFR 49.25 49.25 Random Glucose 100 91 Calcium 7.8 L 7.8 L Phosphorus 2.7 Magnesium 2.2 Total Bilirubin 0.4 AST 23 ALT 21 Alkaline Phosphatase 98 Total Protein 4.9 L Albumin 1.8 L Current Medications Generic Name Dose Route Start Last Admin Trade Name Freq PRN Reason Stop Dose Admin Acetaminophen 1,000 mg 10/10/18 15:27 Ofirmev Injection - IVPB Q6H PRN PAIN LEVEL 1-5 Apixaban 5 mg 10/10/18 22:00 10/11/18 10:12 Eliquis - PO 5 mg BID [facility] Administration Aripiprazole 5 mg 10/11/18 10:00 10/11/18 10:13 Abilify PO 5 mg DAILY [facility] Administration Diltiazem HCl 10 mg 10/10/18 15:27 Cardizem Injection - IVPUSH Q4H PRN TACHYCARDIA Hydrochlorothiazide 25 mg 10/09/18 11:15 10/11/18 10:47 Hctz - PO 25 mg DAILY [facility] Administration Levothyroxine Sodium 100 mcg 10/11/18 07:00 10/11/18 06:43 Synthroid - PO 100 mcg DAILY@0700 [facility] Administration Metoprolol Tartrate 50 mg 10/10/18 22:00 10/11/18 15:22 Lopressor - PO 50 mg TID [facility] Administration Potassium Phos/Sodium Phos 1 packet 10/10/18 10:00 10/11/18 10:47 Phos-Nak Packet - PO 1 packet DAILY [facility] Administration Ranitidine HCl 150 mg 10/10/18 22:00 10/11/18 10:47 Zantac - PO 150 mg BID [facility] Administration ASSESSMENT AND PLAN: 67 year old female with Bipolar Disorder, Hypothyroidism, presented with abdominal pain and developed sepsis secondary to Stercoral perforation and Peritonitis. 1. Sepsis secondary to stercoral perforation with peritonitis Peritoneal culture positive for Prevotella s/p Sidra procedure 10/02 (sigmoidectomy with colostomy) POD 9 Afebrile, hemodynamically stable, WBC improving Antibiotics Merrem and Vancomycin discontinued. Tolerating oral intake. Colostomy functioning. 2. 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 IV fluids now discontinued. Nephrology following. 3. Paroxysmal atrial fib - new - now in SR - Continue Lopressor, Eliquis. Echo - mild diastolic dysfucntion. Cardiology following. 4. Chronic diastolic dysfunction/CHF - Stable - no evidence for decompensation. 5. Hypokalemia - Resolved. 6. Acute kidney injury secondary to sepsis/hypoperfusion - resolved. 7. Acute metabolic encephalopathy - Multifactorial, including sepsis, hypernatremia, Delirium/ ICU psychosis Improving but still not fully oriented. 8. Bipolar disorder - Loris held given DI. Psychiatry evaluated and switched to Abilify. 9. Hypothyroidism - Continue Synthroid 10. HTN - Continue Lopressor, HCTZ 11. Protein calorie malnutrition - Acute. Encourage oral intake with protein supplementation. 12. Dispo - likely rehab/SNF. PT requested.
[2018-10-11] MEDS ORDERED: PT OWN MED DRAWER 7, Y5N ONE (21:36)
[2018-10-12] MEDS: LEVOTHYROXINE NA 100 MCG TABLET (FP) PO SCH (07:00)
[2018-10-12 07:15] LABS: HEMATOCRIT 33.6 % (32.4-45.2); HEMOGLOBIN 11.3 GM/dL (10.7-15.3); MCH 27.5 pg (25.7-33.7); MCHC 33.7 g/dl (32.0-36.0); MEAN CELL VOLUME 81.5 fl (80-96); PLATELET COUNT 353 K/MM3 (134-434); RBC 4.12 M/mm3 (3.60-5.2); RDW 13.6 % (11.6-15.6); WHITE BLOOD COUNT 12.8 K/mm3 (4.0-10.0)
[2018-10-12] MEDS: METOPROLOL TARTRATE 50 MG TABLET (FP) PO SCH ×3 (07:42→21:54)
[2018-10-12 08:04] LABS: ANION GAP 3 MMOL/L (8-16); BLOOD UREA NITROGEN 17 mg/dL (7-18); CALCIUM 8.6 mg/dL (8.5-10.1); CHLORIDE 116 mmol/L (98-107); CO2 26 mmol/L (21-32); CREATININE 1.2 mg/dL (0.55-1.3); GLUCOSE,RANDOM 85 mg/dL (74-106); MAGNESIUM 2.2 mg/dL (1.8-2.4); PHOSPHOROUS 2.9 mg/dL (2.5-4.9); POTASSIUM 4.8 mmol/L (3.5-5.1); SODIUM 145 mmol/L (136-145)
[2018-10-12] MEDS: NAPH,MB-DB/K PH,MBDB POWDER PACKET PO SCH (09:30)
[2018-10-12] MEDS: APIXABAN 5 MG TABLET PO SCH ×2 (09:30→21:54)
[2018-10-12] MEDS: RANITIDINE HCL 150 MG TABLET (FP) PO SCH ×2 (09:30→21:54)
[2018-10-12] MEDS: HYDROCHLOROTHIAZIDE 25 MG TABLET (FP) PO SCH (09:30)
[2018-10-12] MEDS: ARIPiprazole 5 MG TABLET (FP) PO SCH (09:31)
--- NOTE | 2018-10-12 10:01 | PN ---
Progress Note (short form) - Note Progress Note: Renal follow up for MONIKA Pt seen and examined at the bedside awake and alert no acute complaints drinking a lot of water making urine via morales Vital Signs Temperature 98.6 F 10/12/18 09:00 Pulse Rate 78 10/12/18 09:00 Respiratory Rate 20 10/12/18 09:00 Blood Pressure 120/76 10/12/18 09:00 O2 Sat by Pulse Oximetry (%) 94 L 10/11/18 21:00 NAD awake and alert neck supple No LE edema CBC, BMP 10/12/18 05:50 10/12/18 05:50 Current Medications Acetaminophen (Ofirmev Injection -) 1,000 mg IVPB Q6H PRN PRN Reason: PAIN LEVEL 1-5 Apixaban (Eliquis -) 5 mg PO BID [facility] Last Admin: 10/12/18 09:30 Dose: 5 mg Aripiprazole (Abilify) 5 mg PO DAILY [facility] Last Admin: 10/12/18 09:31 Dose: 5 mg Diltiazem HCl (Cardizem Injection -) 10 mg IVPUSH Q4H PRN PRN Reason: TACHYCARDIA Hydrochlorothiazide (Hctz -) 25 mg PO DAILY [facility] Last Admin: 10/12/18 09:30 Dose: 25 mg Levothyroxine Sodium (Synthroid -) 100 mcg PO DAILY@0700 [facility] Last Admin: 10/12/18 07:00 Dose: 100 mcg Metoprolol Tartrate (Lopressor -) 50 mg PO TID [facility] Last Admin: 10/12/18 07:42 Dose: 50 mg Potassium Phos/Sodium Phos (Phos-Nak Packet -) 1 packet PO DAILY [facility] Last Admin: 10/12/18 09:30 Dose: 1 packet Ranitidine HCl (Zantac -) 150 mg PO BID [facility] Last Admin: 10/12/18 09:30 Dose: 150 mg 67 year old woman with hx of bipolar disorder, cholecystitis who presented with constipation and lower abd pain and found to have acute diverticulosis and new Afib with subsequent development of ileus with MONIKA. 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
--- NOTE | 2018-10-12 13:49 | PN ---
Progress Note, Physician History of Present Illness: s/p Sidra's procedure for OR findings of stercoral perforation with peritonitis abx stopped yesterday by ID pt seen and examined in bed she is awake and alert, is not present she is still somewhat confused Migeul was removed this morning, she states she needs to go to the bathroom was able to use bedpan with nurse for 300ml urine pain is controlled but uncomfortable with dressing change tolerating diet, drinking fluids ad kleber - she states she is drinking "all the time" was thirsty and had two cups of water before I left IV fluids off HCTZ daily sodium, BUN/Cr improved colostomy with liquid brown output, base intact but soft medially, at least half full of liquid stool - Current Medication List Current Medications: Active Medications Acetaminophen (Ofirmev Injection -) 1,000 mg IVPB Q6H PRN PRN Reason: PAIN LEVEL 1-5 Apixaban (Eliquis -) 5 mg PO BID [facility] Last Admin: 10/12/18 09:30 Dose: 5 mg Aripiprazole (Abilify) 5 mg PO DAILY [facility] Last Admin: 10/12/18 09:31 Dose: 5 mg Diltiazem HCl (Cardizem Injection -) 10 mg IVPUSH Q4H PRN PRN Reason: TACHYCARDIA Hydrochlorothiazide (Hctz -) 25 mg PO DAILY [facility] Last Admin: 10/12/18 09:30 Dose: 25 mg Levothyroxine Sodium (Synthroid -) 100 mcg PO DAILY@0700 [facility] Last Admin: 10/12/18 07:00 Dose: 100 mcg Metoprolol Tartrate (Lopressor -) 50 mg PO TID [facility] Last Admin: 10/12/18 07:42 Dose: 50 mg Potassium Phos/Sodium Phos (Phos-Nak Packet -) 1 packet PO DAILY [facility] Last Admin: 10/12/18 09:30 Dose: 1 packet Ranitidine HCl (Zantac -) 150 mg PO BID [facility] Last Admin: 10/12/18 09:30 Dose: 150 mg - Objective Vital Signs: Vital Signs Temperature 98.6 F 10/12/18 09:00 Pulse Rate 78 10/12/18 09:00 Respiratory Rate 20 10/12/18 09:00 Blood Pressure 120/76 10/12/18 09:00 O2 Sat by Pulse Oximetry (%) 98 10/12/18 09:00 Constitutional: Yes: Well Nourished, No Distress, Calm Eyes: Yes: Conjunctiva Clear, EOM Intact HENT: Yes: Atraumatic, Normocephalic Gastrointestinal: Yes: Soft, Other (colostomy p/p/productive of liquid brown stool). No: Tenderness (but uncomfortable with dressing changes) Genitourinary: No: Miguel Present, Incontinence (able to use bedpan just now) Extremities: No: Cool, Cyanosis Integumentary: Yes: Incision (midline with dressing), Skin Tear (denuded skin spots between ostomy and midline, partially under appliance base). No: Jaundice , Rash Wound/Incision: Yes: [place] Intact (between wounds), Dressing Dry and Intact, Dressing Removed (and packing changed - single 2x2 in each wound replaced, covered with gauze, abd and tape), Draining (small serosang/serous staining on gauze), Unapproximated (between anita - wounds starting to granulate, pink and clean x4) Neurological: Yes: Alert, Oriented (x2), Confusion (somewhat) Labs: CBC, BMP 10/12/18 05:50 10/12/18 05:50 lytes, wbc, h/h all up slightly today? 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 following - now getting HCTZ daily with improvement in Na, UOP ad kleber free water/liquid intake, no caffeine can use bedpan - would encourage bedside commode to increase pts activity level need to continue strict I/O's for UOP measurement per renal tolerating diet - encouraged to take in more protein, calories will add supplements to meals colostomy functioning pain meds - prn tylenol PT seeing, pt will need rehab for wound care, colostomy care and physical therapy on discharge incisions clean, wound dressings changed, sites are clean continue daily wound care - 2x2 gauze into each site, covered by folded gauze, abd and tape to secure may need to get proper size convex appliance for ostomy Code(s): K63.1 - PERFORATION OF INTESTINE (NONTRAUMATIC) (2) Stercoral ulcer of large intestine Code(s): K63.3 - ULCER OF INTESTINE (3) Stercolith Code(s): K56.41 - FECAL IMPACTION (4) Constipation Code(s): K59.00 - CONSTIPATION, UNSPECIFIED Qualifiers: Constipation type: chronic idiopathic constipation Qualified Code(s): K59.04 - Chronic idiopathic constipation (5) Diabetes insipidus Assessment/Plan: nephrogenic DI per renal, following likely related to long-term lithium use alert and conversational today, still somewhat confused D5W off thiazide daily ad kleber free water and clear liquids po monitor closely - she is more independent with PO intake but still requires assistance with meals need to maintain free intake of fluids Code(s): E23.2 - DIABETES INSIPIDUS (6) Acute hypernatremia Code(s): E87.0 - HYPEROSMOLALITY AND HYPERNATREMIA (7) Paroxysmal atrial fibrillation Assessment/Plan: cardiology following rate and rhythm controlled on eliquis (does not need DVT prophylaxis/SCDs) keep lytes normal ? if should be on telemetry? Code(s): I48.0 - PAROXYSMAL ATRIAL FIBRILLATION (8) Bipolar disorder Assessment/Plan: lithium likely to have contributed to DI it has been stopped, on abilify per psych unclear if any alternative meds will be needed/appropriate for long-term use Code(s): F31.9 - BIPOLAR DISORDER, UNSPECIFIED Qualifiers: Active/Remission status: in remission of unspecified degree Qualified Code( s): F31.70 - Bipolar disorder, currently in remission, most recent episode unspecified (9) Hypertension Assessment/Plan: on po beta paige and HCTZ Code(s): I10 - ESSENTIAL (PRIMARY) HYPERTENSION Qualifiers: Hypertension type: essential hypertension Qualified Code(s): I10 - Essential (primary) hypertension (10) Hyperlipidemia Code(s): E78.5 - HYPERLIPIDEMIA, UNSPECIFIED Qualifiers: Hyperlipidemia type: unspecified Qualified Code(s): E78.5 - Hyperlipidemia , unspecified (11) Hypothyroidism Assessment/Plan: on po synthroid Code(s): E03.9 - HYPOTHYROIDISM, UNSPECIFIED Qualifiers: Hypothyroidism type: unspecified Qualified Code(s): E03.9 - Hypothyroidism , unspecified (12) Hiatal hernia without gangrene or obstruction Code(s): K44.9 - DIAPHRAGMATIC HERNIA WITHOUT OBSTRUCTION OR GANGRENE
[2018-10-12] MEDS: ACETAMINOPHEN 325 MG TABLET (FP) PO PRN ×2 (14:22→21:02)
--- NOTE | 2018-10-12 14:34 | PN ---
Progress Note, Physician History of Present Illness: stable confused but improving otherwise in no distress wbc increased - Current Medication List Current Medications: Active Medications Acetaminophen (Tylenol -) 650 mg PO Q6H PRN PRN Reason: Pain Level 4 - 10 Last Admin: 10/12/18 14:22 Dose: 650 mg Apixaban (Eliquis -) 5 mg PO BID [facility] Last Admin: 10/12/18 09:30 Dose: 5 mg Aripiprazole (Abilify) 5 mg PO DAILY [facility] Last Admin: 10/12/18 09:31 Dose: 5 mg Diltiazem HCl (Cardizem Injection -) 10 mg IVPUSH Q4H PRN PRN Reason: TACHYCARDIA Hydrochlorothiazide (Hctz -) 25 mg PO DAILY [facility] Last Admin: 10/12/18 09:30 Dose: 25 mg Levothyroxine Sodium (Synthroid -) 100 mcg PO DAILY@0700 [facility] Last Admin: 10/12/18 07:00 Dose: 100 mcg Metoprolol Tartrate (Lopressor -) 50 mg PO TID [facility] Last Admin: 10/12/18 14:23 Dose: 50 mg Potassium Phos/Sodium Phos (Phos-Nak Packet -) 1 packet PO DAILY [facility] Last Admin: 10/12/18 09:30 Dose: 1 packet Ranitidine HCl (Zantac -) 150 mg PO BID [facility] Last Admin: 10/12/18 09:30 Dose: 150 mg - Objective Vital Signs: Vital Signs Temperature 98.6 F 10/12/18 09:00 Pulse Rate 78 10/12/18 09:00 Respiratory Rate 20 10/12/18 09:00 Blood Pressure 120/76 10/12/18 09:00 O2 Sat by Pulse Oximetry (%) 98 10/12/18 09:00 Constitutional: Yes: No Distress, Calm Cardiovascular: Yes: Regular Rate and Rhythm Respiratory: Yes: Regular, CTA Bilaterally Gastrointestinal: Yes: Normal Bowel Sounds, Other (colostomy fning still semisolid) Musculoskeletal: Yes: WNL Extremities: Yes: WNL Neurological: Yes: Alert, Other Psychiatric: Yes: Other Labs: CBC, BMP 10/12/18 05:50 10/12/18 05:50 INR, PTT INR 1.32 (0.83-1.09) H 10/08/18 05:15 Assessment/Plan - Problems (1) Diverticulitis of large intestine with perforation without abscess or bleeding Code(s): K57.20 - DVTRCLI OF LG INT W PERFORATION AND ABSCESS W/O BLEEDING (2) Suprapubic pain Code(s): R10.2 - PELVIC AND PERINEAL PAIN (3) Constipation Code(s): K59.00 - CONSTIPATION, UNSPECIFIED Qualifiers: Constipation type: other constipation type Qualified Code(s): K59.09 - Other constipation (4) Paroxysmal atrial fibrillation Code(s): I48.0 - PAROXYSMAL ATRIAL FIBRILLATION (5) Bipolar disorder Code(s): F31.9 - BIPOLAR DISORDER, UNSPECIFIED Qualifiers: Active/Remission status: in remission of unspecified degree Qualified Code( s): F31.70 - Bipolar disorder, currently in remission, most recent episode unspecified (6) Hypertension Code(s): I10 - ESSENTIAL (PRIMARY) HYPERTENSION Qualifiers: Hypertension type: essential hypertension Qualified Code(s): I10 - Essential (primary) hypertension (7) Hyperlipidemia Code(s): E78.5 - HYPERLIPIDEMIA, UNSPECIFIED Qualifiers: Hyperlipidemia type: unspecified Qualified Code(s): E78.5 - Hyperlipidemia , unspecified (8) Hypothyroidism Code(s): E03.9 - HYPOTHYROIDISM, UNSPECIFIED Qualifiers: Hypothyroidism type: unspecified Qualified Code(s): E03.9 - Hypothyroidism , unspecified (9) Hiatal hernia without gangrene or obstruction Code(s): K44.9 - DIAPHRAGMATIC HERNIA WITHOUT OBSTRUCTION OR GANGRENE plan patients wbc has started increasing will see wbc tomorrow if it increases will consider starting abx wound care xray to be done rest as per surgical team
--- NOTE | 2018-10-12 16:39 | PN ---
Progress Note (short form) - Note Progress Note: 67 year old female with Bipolar Disorder, Hypothyroidism, presented with abdominal pain and developed sepsis secondary to Stercoral perforation and Peritonitis. Feeling okay today. Some mild abdominal discomfort. Tolerating oral intake. No fever/chills. No nausea/vomiting. PHYSICAL EXAMINATION Afebrile, Hemodynamically Stable. Last Vital Signs Temp Pulse Resp BP Pulse Ox 98.4 F 70 20 120/74 98 10/12/18 14:21 10/12/18 14:21 10/12/18 14:21 10/12/18 14:21 10/12/18 09:00 Neuro - AAO x 2. Tone/Power normal all 4 extremities HEENT - Atraumatic, Normocephalic Heart - S1, S2, RRR Lungs - clear to auscultation, good air entry bilaterally Abdomen- midline laparotomy incision dressed. Colostomy with soft stool. Mildly tender abdomen. Extremities - no edema. Laboratory Results - last 24 hr 10/11/18 10/12/18 10/12/18 15:00 05:50 05:50 WBC 12.8 H RBC 4.12 Hgb 11.3 Hct 33.6 MCV 81.5 MCH 27.5 MCHC 33.7 RDW 13.6 Plt Count 353 D MPV 10.0 Sodium 143 145 Potassium 4.8 Chloride 116 H Carbon Dioxide 26 Anion Gap 3 L BUN 17 Creatinine 1.2 Creat Clearance w eGFR 44.54 Random Glucose 85 Calcium 8.6 Phosphorus 2.9 Magnesium 2.2 Current Medications Generic Name Dose Route Start Last Admin Trade Name Freq PRN Reason Stop Dose Admin Acetaminophen 650 mg 10/12/18 14:04 10/12/18 14:22 Tylenol - PO 650 mg Q6H PRN Administration Pain Level 4 - 10 Apixaban 5 mg 10/10/18 22:00 10/12/18 09:30 Eliquis - PO 5 mg BID THOMAS Administration Aripiprazole 5 mg 10/11/18 10:00 10/12/18 09:31 Abilify PO 5 mg DAILY THOMAS Administration Diltiazem HCl 10 mg 10/10/18 15:27 Cardizem Injection - IVPUSH Q4H PRN TACHYCARDIA Hydrochlorothiazide 25 mg 10/09/18 11:15 10/12/18 09:30 Hctz - PO 25 mg DAILY THOMAS Administration Levothyroxine Sodium 100 mcg 12/14/18 07:00 10/12/18 07:00 Synthroid - PO 100 mcg DAILY@0700 THOMAS Administration Metoprolol Tartrate 50 mg 10/10/18 22:00 10/12/18 14:23 Lopressor - PO 50 mg TID THOMAS Administration Potassium Phos/Sodium Phos 1 packet 10/10/18 10:00 10/12/18 09:30 Phos-Nak Packet - PO 1 packet DAILY THOMAS Administration Ranitidine HCl 150 mg 10/10/18 22:00 10/12/18 09:30 Zantac - PO 150 mg BID THOMAS Administration Assesment/PLAN 67 year old female with Bipolar Disorder, Hypothyroidism, presented with abdominal pain and developed sepsis secondary to Stercoral perforation and Peritonitis, currently POD 10 s/p Sidra's. 1. Sepsis secondary to stercoral perforation with peritonitis Peritoneal culture positive for Prevotella s/p Sidra procedure 10/02 (sigmoidectomy with colostomy) POD 10 Afebrile, hemodynamically stable, but WBC hovering in 11-13 range. Antibiotics Merrem and Vancomycin discontinued 10/11. Tolerating oral intake. Colostomy functioning. 2. 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 IV fluids discontinued 10/11. Still polyuric. Will monitor daily electrolytes. Nephrology following. 3. Paroxysmal atrial fib - new - now in SR - Continue Lopressor, Eliquis. Echo - mild diastolic dysfucntion. Cardiology following. 4. Chronic diastolic dysfunction/CHF - Stable - no evidence for decompensation. 5. Hypokalemia - Resolved. 6. Acute kidney injury secondary to sepsis/hypoperfusion - resolved. 7. Acute metabolic encephalopathy - Multifactorial, including sepsis, hypernatremia, Delirium/ ICU psychosis Improving but still not fully oriented. Currently AAO x 2. 8. Bipolar disorder - [place] held given DI. Psychiatry evaluated and switched to Abilify. 9. Hypothyroidism - Continue Synthroid 10. HTN - Continue Lopressor, HCTZ 11. Protein calorie malnutrition - Acute. Encourage oral intake with protein supplementation. 12. Dispo - likely rehab/SNF. PT requested. DVT Px - on Eliquis GI Px - on Ranitidine Visit type - Emergency Visit Emergency Visit: Yes ED Registration Date: 09/28/18 Care time: The patient presented to the Emergency Department on the above date and was hospitalized for further evaluation of their emergent condition. - New Patient This patient is new to me today: No - Critical Care Critical Care patient: No - Discharge Referral Referred to [facility] No
[2018-10-13] MEDS: LEVOTHYROXINE NA 100 MCG TABLET (FP) PO SCH (06:00)
[2018-10-13] MEDS: METOPROLOL TARTRATE 50 MG TABLET (FP) PO SCH (06:00)
[2018-10-13 06:51] LABS: BASO % 0.1 % (0-2.0); EOS % 0.9 % (0-4.5); HEMATOCRIT 33.8 % (32.4-45.2); HEMOGLOBIN 10.7 GM/dL (10.7-15.3); LYMPH % 6.9 % (8-40); MCH 26.1 pg (25.7-33.7); MCHC 31.5 g/dl (32.0-36.0); MEAN CELL VOLUME 82.7 fl (80-96); MEAN PLT VOLUME 9.8 fl (7.5-11.1); NEUT % 85.1 % (42.8-82.8); PLATELET COUNT 327 K/MM3 (134-434); RBC 4.09 M/mm3 (3.60-5.2); RDW 13.5 % (11.6-15.6); WHITE BLOOD COUNT 14.5 K/mm3 (4.0-10.0)
[2018-10-13 08:05] LABS: ANION GAP 6 MMOL/L (8-16); BLOOD UREA NITROGEN 18 mg/dL (7-18); CALCIUM 8.5 mg/dL (8.5-10.1); CHLORIDE 109 mmol/L (98-107); CO2 28 mmol/L (21-32); CREATININE 1.2 mg/dL (0.55-1.3); GLUCOSE,RANDOM 84 mg/dL (74-106); POTASSIUM 4.4 mmol/L (3.5-5.1); SODIUM 143 mmol/L (136-145)
[2018-10-13] MEDS: HYDROCHLOROTHIAZIDE 25 MG TABLET (FP) PO SCH (09:56)
--- NOTE | 2018-10-13 09:58 | PN ---
Progress Note (short form) - Note Progress Note: Renal follow up for MONIKA Pt seen and examined at the bedside awake and alert no acute complaints Vital Signs Temperature 99.7 F H 10/13/18 09:56 Pulse Rate 73 10/13/18 09:56 Respiratory Rate 18 10/13/18 09:56 Blood Pressure 99/61 10/13/18 09:56 O2 Sat by Pulse Oximetry (%) 98 10/12/18 21:00 Intake & Output 10/10/18 10/11/18 10/12/18 10/13/18 23:59 23:59 23:59 23:59 Intake Total 4650 2425 915 Output Total 5900 5800 1150 800 Balance -1250 -3375 -235 -800 Weight 69.899 kg NAD awake and alert neck supple No LE edema CBC, BMP 10/13/18 06:00 10/13/18 06:00 Current Medications Acetaminophen (Tylenol -) 650 mg PO Q6H PRN PRN Reason: Pain Level 4 - 10 Last Admin: 10/12/18 21:02 Dose: 650 mg Apixaban (Eliquis -) 5 mg PO BID [facility] Last Admin: 10/12/18 21:54 Dose: 5 mg Aripiprazole (Abilify) 5 mg PO DAILY [facility] Last Admin: 10/12/18 09:31 Dose: 5 mg Diltiazem HCl (Cardizem Injection -) 10 mg IVPUSH Q4H PRN PRN Reason: TACHYCARDIA Hydrochlorothiazide (Hctz -) 25 mg PO DAILY [facility] Last Admin: 10/13/18 09:56 Dose: Not Given Levothyroxine Sodium (Synthroid -) 100 mcg PO DAILY@0700 [facility] Last Admin: 10/13/18 06:00 Dose: 100 mcg Metoprolol Tartrate (Lopressor -) 50 mg PO TID [facility] Last Admin: 10/13/18 06:00 Dose: 50 mg Potassium Phos/Sodium Phos (Phos-Nak Packet -) 1 packet PO DAILY [facility] Last Admin: 10/12/18 09:30 Dose: 1 packet Ranitidine HCl (Zantac -) 150 mg PO BID [facility] Last Admin: 10/12/18 21:54 Dose: 150 mg 67 year old woman with hx of bipolar disorder, cholecystitis who presented with constipation and lower abd pain and found to have acute diverticulosis and new Afib with subsequent development of ileus with MONIKA. #MONIKA likely due to renal hypoprofuion, now improved #Hypernatremia secondary to suspected nephrogenic DI due to lithium #Diverticulitis/Ileus s/p surgical intervention #New Afib urine out reduced to 1150 yesterday and serum na is stable continue HCTZ and oral water intake as per pts thirst Trend na daily Sulaiman Zarate DO
[2018-10-13] MEDS: APIXABAN 5 MG TABLET PO SCH ×2 (10:12→21:28)
[2018-10-13] MEDS: ARIPiprazole 5 MG TABLET (FP) PO SCH (10:12)
[2018-10-13] MEDS: RANITIDINE HCL 150 MG TABLET (FP) PO SCH ×2 (10:12→21:28)
[2018-10-13] MEDS: NAPH,MB-DB/K PH,MBDB POWDER PACKET PO SCH (10:13)
[2018-10-13] MEDS ORDERED: PT OWN MED DRAWER 7, Y5N ONE (11:23)
--- NOTE | 2018-10-13 12:21 | PN ---
Progress Note (short form) - Note Progress Note: Patient acording to staff has become incresingly confused. had been in Telemetry. Ms: Alert, able to make eye contact but confused and disoriented, Unable to engage in any meaningful conversation.Historyb of [place]. PLan D/c Abilify.
--- NOTE | 2018-10-13 13:39 | PN ---
Progress Note, Physician History of Present Illness: Remains on PR POD#11 sigmoidectomy with colostomy (Sidra's procedure) for sigmoid stercoral perforation with peritonitis. Remains in NSR. Tolerating regular diet, borderline BP. - Current Medication List Current Medications: Active Medications Acetaminophen (Tylenol -) 650 mg PO Q6H PRN PRN Reason: Pain Level 4 - 10 Last Admin: 10/12/18 21:02 Dose: 650 mg Apixaban (Eliquis -) 5 mg PO BID [facility] Last Admin: 10/13/18 10:12 Dose: 5 mg Diltiazem HCl (Cardizem Injection -) 10 mg IVPUSH Q4H PRN PRN Reason: TACHYCARDIA Hydrochlorothiazide (Hctz -) 25 mg PO DAILY [facility] Last Admin: 10/13/18 09:56 Dose: Not Given Levothyroxine Sodium (Synthroid -) 100 mcg PO DAILY@0700 [facility] Last Admin: 10/13/18 06:00 Dose: 100 mcg Metoprolol Tartrate (Lopressor -) 50 mg PO TID [facility] Last Admin: 10/13/18 06:00 Dose: 50 mg Potassium Phos/Sodium Phos (Phos-Nak Packet -) 1 packet PO DAILY [facility] Last Admin: 10/13/18 10:13 Dose: 1 packet Ranitidine HCl (Zantac -) 150 mg PO BID [facility] Last Admin: 10/13/18 10:12 Dose: 150 mg - Objective Vital Signs: Vital Signs Temperature 99.7 F H 10/13/18 09:56 Pulse Rate 73 10/13/18 09:56 Respiratory Rate 18 10/13/18 09:56 Blood Pressure 99/61 10/13/18 09:56 O2 Sat by Pulse Oximetry (%) 98 10/12/18 21:00 Constitutional: Yes: No Distress, Calm, Thin Neck: Yes: Supple Cardiovascular: Yes: Regular Rate and Rhythm Respiratory: Yes: Regular, Diminished Gastrointestinal: Yes: Soft, Hypoactive Bowel Sounds, Other (Colostomy intact) Edema: No Labs: CBC, BMP 10/13/18 06:00 10/13/18 06:00 INR, PTT INR 1.32 (0.83-1.09) H 10/08/18 05:15 Problem List - Problems (1) Diverticulitis of large intestine with perforation without abscess or bleeding Code(s): K57.20 - DVTRCLI OF LG INT W PERFORATION AND ABSCESS W/O BLEEDING (2) Hyperlipidemia Code(s): E78.5 - HYPERLIPIDEMIA, UNSPECIFIED Qualifiers: Hyperlipidemia type: unspecified Qualified Code(s): E78.5 - Hyperlipidemia , unspecified (3) Hypertension Code(s): I10 - ESSENTIAL (PRIMARY) HYPERTENSION Qualifiers: Hypertension type: essential hypertension Qualified Code(s): I10 - Essential (primary) hypertension (4) Hypothyroidism Code(s): E03.9 - HYPOTHYROIDISM, UNSPECIFIED Qualifiers: Hypothyroidism type: unspecified Qualified Code(s): E03.9 - Hypothyroidism , unspecified (5) Paroxysmal atrial fibrillation Code(s): I48.0 - PAROXYSMAL ATRIAL FIBRILLATION (6) History of open sigmoidectomy Code(s): Z98.890 - OTHER SPECIFIED POSTPROCEDURAL STATES; Z90.49 - ACQUIRED ABSENCE OF OTHER SPECIFIED PARTS OF DIGESTIVE TRACT Assessment/Plan 09/30/2018 Echo: Normal LV size and fxn LVEF 60-65%, mildly impaired LV compliance, normal RV fxn, normal atrial sizes, mild TR, trace-mild MR 1. POD#11 sigmoidectomy with colostomy (Sidra's procedure) for sigmoid stercoral perforation with peritonitis 2. Paroxysmal atrial fibrillation [id number] score of 3 currently on Eliquis 3. Diastolic LV dysfunction with clinical class 0 NYHA classification LV failure 4. Hypertension 5. Hypothyroidism 6. Bipolar disorder, paranoid behavior 7. Acute on CKD due to renal hypoperfusion improved 8. 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 Continue Eliquis 5 bid 2. Decrease Lopressor 25 bid, d/c HCTZ 25 qd 3. Continue IV Cardizem as needed for rate control 4. Completed antibiotic course per the primary team 5. Ambulate as tolerated
--- NOTE | 2018-10-13 13:40 | PN ---
Progress Note, Physician History of Present Illness: still confused wbc has started climbing up patient is afebrile present - Current Medication List Current Medications: Active Medications Acetaminophen (Tylenol -) 650 mg PO Q6H PRN PRN Reason: Pain Level 4 - 10 Last Admin: 10/12/18 21:02 Dose: 650 mg Apixaban (Eliquis -) 5 mg PO BID [facility] Last Admin: 10/13/18 10:12 Dose: 5 mg Diltiazem HCl (Cardizem Injection -) 10 mg IVPUSH Q4H PRN PRN Reason: TACHYCARDIA Hydrochlorothiazide (Hctz -) 25 mg PO DAILY [facility] Last Admin: 10/13/18 09:56 Dose: Not Given Levothyroxine Sodium (Synthroid -) 100 mcg PO DAILY@0700 [facility] Last Admin: 10/13/18 06:00 Dose: 100 mcg Metoprolol Tartrate (Lopressor -) 50 mg PO TID [facility] Last Admin: 10/13/18 06:00 Dose: 50 mg Potassium Phos/Sodium Phos (Phos-Nak Packet -) 1 packet PO DAILY [facility] Last Admin: 10/13/18 10:13 Dose: 1 packet Ranitidine HCl (Zantac -) 150 mg PO BID [facility] Last Admin: 10/13/18 10:12 Dose: 150 mg - Objective Vital Signs: Vital Signs Temperature 99.7 F H 10/13/18 09:56 Pulse Rate 73 10/13/18 09:56 Respiratory Rate 18 10/13/18 09:56 Blood Pressure 99/61 10/13/18 09:56 O2 Sat by Pulse Oximetry (%) 98 10/12/18 21:00 Constitutional: Yes: No Distress, Calm Cardiovascular: Yes: Regular Rate and Rhythm Respiratory: Yes: Regular, CTA Bilaterally Gastrointestinal: Yes: Normal Bowel Sounds, Other (colostomy fning well) Musculoskeletal: Yes: WNL Wound/Incision: Yes: Clean/Dry, Dressing Dry and Intact Neurological: Yes: Alert, Confusion Labs: CBC, BMP 10/13/18 06:00 10/13/18 06:00 INR, PTT INR 1.32 (0.83-1.09) H 10/08/18 05:15 Assessment/Plan - Problems (1) Diverticulitis of large intestine with perforation without abscess or bleeding Code(s): K57.20 - DVTRCLI OF LG INT W PERFORATION AND ABSCESS W/O BLEEDING (2) Suprapubic pain Code(s): R10.2 - PELVIC AND PERINEAL PAIN (3) Constipation Code(s): K59.00 - CONSTIPATION, UNSPECIFIED Qualifiers: Constipation type: other constipation type Qualified Code(s): K59.09 - Other constipation (4) Paroxysmal atrial fibrillation Code(s): I48.0 - PAROXYSMAL ATRIAL FIBRILLATION (5) Bipolar disorder Code(s): F31.9 - BIPOLAR DISORDER, UNSPECIFIED Qualifiers: Active/Remission status: in remission of unspecified degree Qualified Code( s): F31.70 - Bipolar disorder, currently in remission, most recent episode unspecified (6) Hypertension Code(s): I10 - ESSENTIAL (PRIMARY) HYPERTENSION Qualifiers: Hypertension type: essential hypertension Qualified Code(s): I10 - Essential (primary) hypertension (7) Hyperlipidemia Code(s): E78.5 - HYPERLIPIDEMIA, UNSPECIFIED Qualifiers: Hyperlipidemia type: unspecified Qualified Code(s): E78.5 - Hyperlipidemia , unspecified (8) Hypothyroidism Code(s): E03.9 - HYPOTHYROIDISM, UNSPECIFIED Qualifiers: Hypothyroidism type: unspecified Qualified Code(s): E03.9 - Hypothyroidism , unspecified (9) Hiatal hernia without gangrene or obstruction Code(s): K44.9 - DIAPHRAGMATIC HERNIA WITHOUT OBSTRUCTION OR GANGRENE plan patients wbc has started increasing will restart abx will d.w the surgical team wound care rest as per the team
--- NOTE | 2018-10-13 14:15 | PN ---
Physical Exam: SUBJECTIVE: Patient seen and examined at bed side , alert but still confused , she eat part of her food has some stool in colostomy bag, denies any fever, chills, N/V, denies any chest pain or sob, has elevation in WBC to 14.5 . at bed side discussing her medication list and asking to transfer her by next weekend if there is no improve in her mental status . Psych saw her today and stop abilify OBJECTIVE: Vital Signs Period Temp Pulse Resp BP Sys/Choi Pulse Ox Last 24 Hr 98.1 F-99.7 F 60-73 18-20 95-125/61-79 98 GENERAL: AAOx1 in NAD , but very confused and forgetfulness HEAD: NC/AT EYES: EOMI, Conjunctiva clear, ENT: moist mucous membrane NECK: Supple, no JVD LUNGS: CTA B/L, no crackles no wheezing no accessory muscle use. HEART: RRR, NSR, normal s1, s2, murmur no M/R/G ABDOMEN: Soft, ND, NT, +BS 4 Q, no CVA Tenderness, surgical incision at med line , LLQ colostomy bag with soft stool, LOWER EXTREMITIES: no edema, +2DP pulse, NEUROLOGICAL: No focal deficit. Normal speech. gait not observed.confused with memory deficit PSYCHIATRIC: Cooperative. SKIN: Warm, dry, Laboratory Results - last 24 hr 10/13/18 10/13/18 06:00 06:00 WBC 14.5 H RBC 4.09 Hgb 10.7 Hct 33.8 MCV 82.7 MCH 26.1 MCHC 31.5 L RDW 13.5 Plt Count 327 MPV 9.8 Absolute Neuts (auto) 12.3 H Neutrophils % 85.1 H Lymphocytes % 6.9 L D Monocytes % 7.0 Eosinophils % 0.9 Basophils % 0.1 Nucleated RBC % 0 Sodium 143 Potassium 4.4 Chloride 109 H Carbon Dioxide 28 Anion Gap 6 L BUN 18 Creatinine 1.2 Creat Clearance w eGFR 44.54 Random Glucose 84 Calcium 8.5 Active Medications Generic Name Dose Route Start Last Admin Trade Name Freq PRN Reason Stop Dose Admin Acetaminophen 650 mg 10/12/18 14:04 10/12/18 21:02 Tylenol - PO 650 mg Q6H PRN Administration Pain Level 4 - 10 Apixaban 5 mg 10/10/18 22:00 10/13/18 10:12 Eliquis - PO 5 mg BID THOMAS Administration Diltiazem HCl 10 mg 10/10/18 15:27 Cardizem Injection - IVPUSH Q4H PRN TACHYCARDIA Meropenem 1 gm/ Dextrose 100 mls @ 200 mls/hr 10/13/18 14:15 IVPB Q8H-IV THOMAS Levothyroxine Sodium 100 mcg 10/11/18 07:00 10/13/18 06:00 Synthroid - PO 100 mcg DAILY@0700 THOMAS Administration Metoprolol Tartrate 25 mg 10/13/18 22:00 Lopressor - PO BID THOMAS Potassium Phos/Sodium Phos 1 packet 10/10/18 10:00 10/13/18 10:13 Phos-Nak Packet - PO 1 packet DAILY THOMAS Administration Ranitidine HCl 150 mg 10/10/18 22:00 10/13/18 10:12 Zantac - PO 150 mg BID THOMAS Administration CBC, BMP 10/13/18 06:00 10/13/18 06:00 ASSESSMENT/PLAN: 67 y/o female with PMH of cholecystitis and bipolar disorder presented to the ED with abdominal pain and constipation since found to have a 5x4.3x3.4 oval shaped structure with air possible representing an inflamed diverticulum vs. a contained perforation # sepsis 2/2 perforated diverticulitis * re elevation in WBC , no temp over night * re send schneider cx * F/U peritoneal cx * CXR * restart Meropenem today bi ID Dr Graham , * monitor BP * spoke with Dr Graham and Surgery who will come and evaluate the pt * Dr Graham recommend to call IR to change the drainage please follow up on Sunday * Suregery recommendation appreciated * Might need anotehr CT Abdomen/ Pelvic to R/O abscess/obstruction # Acute metabolic encephalopathy * Multifactorial, including sepsis, hypernatremia, Delirium/ ICU psychosis * Improving but still not fully oriented. Currently AAO x 1. * Psychiatry re-eval requested - recommendation to discontinue Abilify. #MONIKA # Hypernatreia , improved * likely due to renal hypoprofusion/volume shifts in setting of abdominal infection/sepsis and lithium nephrogeneic DI * nephro on board * on HCTZ 25 mg po daily to increase proximal renal tubule absorption * BMP daily * monitor urine out put 1150 yesterday #Sigmoid diverticulitis w/ perforation s/p resection/colostomy, POD# 3 * resume abx Meropenem per ID due to WBC elevation * DC iv fluids for now * pain control * follow surgery recommendation # Iluis vs obstruction , resolved * normal bowel sound * colostomy bag with sodt brown stool * encourage free water intake #Paroxysmal atrial fibrillation * [id number] score of 3 * in NSR now * BB standing : metoprolol tartrate decreased to 25 BID with lopressor 5mg PRN * Cardezim PRN * cont Eliquis 5 BID * cardiology on board #Diastolic LV dysfunction * with clinical class 0 NYHA classification LV failure * cont current management #Bipolar Disorder * hold abilify per psych (lithium was held due to DI ) * monitor mental status improvement #Hypothyroidism * c/w synthroid * repeat TSH # Protein calorie malnutrition ,Acute. * Encourage oral intake with protein supplementation. #F/E/N * encourage oral intake * monitor lytes * free water intake, low sodium diet #DVT PPX: * SCDS B/L * Ranitidine # dispo * will benefit from SNF when improved Visit type - Emergency Visit Emergency Visit: Yes ED Registration Date: 09/28/18 Care time: The patient presented to the Emergency Department on the above date and was hospitalized for further evaluation of their emergent condition. - New Patient This patient is new to me today: No - Critical Care Critical Care patient: No - Discharge Referral Referred to [facility] No
--- NOTE | 2018-10-13 15:43 | PN ---
Teaching Attending Note Name of Resident: Jeramie Hankins ATTENDING PHYSICIAN STATEMENT I saw and evaluated the patient. I reviewed the resident's note and discussed the case with the resident. I agree with the resident's findings and plan as documented. SUBJECTIVE: Feels okay. Confused. Disoriented. Not agitated. No abdominal pain/ nausea/vomiting. OBJECTIVE: T 99.5. Hemodynamically stable. Last Vital Signs Temp Pulse Resp BP Pulse Ox 98.9 F 75 18 106/64 94 L 10/13/18 15:04 10/13/18 15:04 10/13/18 15:04 10/13/18 15:04 10/13/18 10:00 Neuro - AAO x 1. Moving all extremities. MARGARETTE Heart - S1, S2, RRR Lungs decreased air entry at bases Abdomen - Soft. Midline laparotomy incision dressed. Soft brown stool in Colostomy. Bowel Sounds normal. Extremities - no edema. No calf tenderness. RUE bruising form repeated IV access /blood draws. No signs of infection/phlebitis. Laboratory Results - last 24 hr 10/13/18 10/13/18 06:00 06:00 WBC 14.5 H RBC 4.09 Hgb 10.7 Hct 33.8 MCV 82.7 MCH 26.1 MCHC 31.5 L RDW 13.5 Plt Count 327 MPV 9.8 Absolute Neuts (auto) 12.3 H Neutrophils % 85.1 H Lymphocytes % 6.9 L D Monocytes % 7.0 Eosinophils % 0.9 Basophils % 0.1 Nucleated RBC % 0 Sodium 143 Potassium 4.4 Chloride 109 H Carbon Dioxide 28 Anion Gap 6 L BUN 18 Creatinine 1.2 Creat Clearance w eGFR 44.54 Random Glucose 84 Calcium 8.5 Current Medications Generic Name Dose Route Start Last Admin Trade Name Freq PRN Reason Stop Dose Admin Acetaminophen 650 mg 10/12/18 14:04 10/12/18 21:02 Tylenol - PO 650 mg Q6H PRN Administration Pain Level 4 - 10 Apixaban 5 mg 10/10/18 22:00 10/13/18 10:12 Eliquis - PO 5 mg BID THOMAS Administration Diltiazem HCl 10 mg 10/10/18 15:27 Cardizem Injection - IVPUSH Q4H PRN TACHYCARDIA Meropenem 1 gm/ Dextrose 100 mls @ 200 mls/hr 10/13/18 14:15 IVPB Q8H-IV THOMAS Levothyroxine Sodium 100 mcg 10/11/18 07:00 10/13/18 06:00 Synthroid - PO 100 mcg DAILY@0700 THOMAS Administration Metoprolol Tartrate 25 mg 10/13/18 22:00 Lopressor - PO BID THOMAS Potassium Phos/Sodium Phos 1 packet 10/10/18 10:00 10/13/18 10:13 Phos-Nak Packet - PO 1 packet DAILY THOMAS Administration Ranitidine HCl 150 mg 10/10/18 22:00 10/13/18 10:12 Zantac - PO 150 mg BID THOMAS Administration ASSESSMENT AND PLAN: 67 year old female with Bipolar Disorder, Hypothyroidism, presented with abdominal pain and developed sepsis secondary to Stercoral perforation and Peritonitis, currently POD 11 s/p Sidra's. 1. Sepsis secondary to stercoral perforation with peritonitis Peritoneal culture positive for Prevotella s/p Sidra procedure 10/02 (sigmoidectomy with colostomy) POD 11 Afebrile, hemodynamically stable, but WBC creeping up to 14.5 today. Antibiotics Merrem and Vancomycin discontinued 10/11 - will resume on Meropenem today given low grade temp and leukocytosis. Re-culture, CXR, ID following. Tolerating oral intake. Colostomy functioning. 2. 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 IV fluids discontinued 10/11. Na 143. Will monitor daily electrolytes. Nephrology following. 3. Paroxysmal atrial fib - new - now in SR - Continue Lopressor, Eliquis. Echo - mild diastolic dysfucntion. Cardiology following. 4. Chronic diastolic dysfunction/CHF - Stable - no evidence for decompensation. 5. Hypokalemia - Resolved. 6. Acute kidney injury secondary to sepsis/hypoperfusion - resolved. 7. Acute metabolic encephalopathy - Multifactorial, including sepsis, hypernatremia, Delirium/ ICU psychosis Improving but still not fully oriented. Currently AAO x 1. Psychiatry re-eval requested - recommendation to discontinue Abilify. 8. Bipolar disorder - [place] held given DI. Psychiatry evaluated and initially switched to Abilify, now discontinued due to waning mental status. 9. Hypothyroidism - Continue Synthroid 10. HTN - Continue Lopressor, HCTZ 11. Protein calorie malnutrition - Acute. Encourage oral intake with protein supplementation. 12. Dispo - likely rehab/SNF. PT. DVT Px - on Eliquis GI Px - on Ranitidine
--- NOTE | 2018-10-13 17:17 | PN ---
Progress Note, Physician History of Present Illness: s/p Sidra's procedure for OR findings of stercoral perforation with peritonitis abx stopped, wbc slowly up again pt seen and examined in bed she is awake but confused she states she needs to go to the bathroom pain is controlled but uncomfortable with dressing change tolerating diet but not eating consistently drinking fluids ad kleber - she asked for water and was given some colostomy with liquid brown output, base needed changing overnight, and again today, but is leaking medially - Current Medication List Current Medications: Active Medications Acetaminophen (Tylenol -) 650 mg PO Q6H PRN PRN Reason: Pain Level 4 - 10 Last Admin: 10/12/18 21:02 Dose: 650 mg Apixaban (Eliquis -) 5 mg PO BID [facility] Last Admin: 10/13/18 10:12 Dose: 5 mg Diltiazem HCl (Cardizem Injection -) 10 mg IVPUSH Q4H PRN PRN Reason: TACHYCARDIA Hydrochlorothiazide (Hctz -) 25 mg PO DAILY [facility] Meropenem 1 gm/ Dextrose 100 mls @ 200 mls/hr IVPB Q8H-IV [facility] Levothyroxine Sodium (Synthroid -) 100 mcg PO DAILY@0700 [facility] Last Admin: 10/13/18 06:00 Dose: 100 mcg Metoprolol Tartrate (Lopressor -) 25 mg PO BID [facility] Potassium Phos/Sodium Phos (Phos-Nak Packet -) 1 packet PO DAILY [facility] Last Admin: 10/13/18 10:13 Dose: 1 packet Ranitidine HCl (Zantac -) 150 mg PO BID [facility] Last Admin: 10/13/18 10:12 Dose: 150 mg - Objective Vital Signs: Vital Signs Temperature 98.9 F 10/13/18 15:04 Pulse Rate 75 10/13/18 15:04 Respiratory Rate 18 10/13/18 15:04 Blood Pressure 106/64 10/13/18 15:04 O2 Sat by Pulse Oximetry (%) 94 L 10/13/18 10:00 Constitutional: Yes: Well Nourished, No Distress, Calm Eyes: Yes: Conjunctiva Clear, EOM Intact HENT: Yes: Atraumatic, Normocephalic Gastrointestinal: Yes: Soft, Other (colostomy pink, patent, productive of gas and liquid brown stool). No: Distention, Tenderness (incisional with dressing change only) Extremities: No: Cool, Cyanosis Integumentary: Yes: Incision (midline with dressing), Skin Tear (denuded skin between midline and ostomy healing - small residual pink spots with new skin, only one with slight moisture almost epithelialized). No: Jaundice, Rash Wound/Incision: Yes: [place] Intact (between wounds), Dressing Removed (and changed - new 2x2 gauze tucked into each of 4 wounds), Unapproximated (between anita - wounds clean except for little contamination from ostomy leakage on upper left edges, granulating slowly, small serous/serosang drainage on dressings). No: Dressing Dry and Intact (intact but soiled at left side from ostomy leakage), Reddened Neurological: Yes: Alert, Confusion Labs: CBC, BMP 10/13/18 06:00 10/13/18 06:00 wbc up a bit H/H stable Na normal, BUN/Cr ok, K normal - ....Imaging Chest X-ray: Image Reviewed (appears improved from postop/previous - no acute infiltrates noted by me, report pending) Problem List - Problems (1) Perforation of sigmoid colon Assessment/Plan: POD11 s/p sigmoidectomy with colostomy (Sidra's procedure) for stercoral perforation of sigmoid with peritonitis pathology consistent with sigmoid perforation, serositis, margins viable one peritoneal fluid cx grew prevotella antibiotics stopped per ID, but resuming today blood cultures just obtained by lab CXR taken hypernatremia, 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 renal following - on HCTZ daily with improvement in Na, UOP still confused - abilify stopped by psych today ad kleber free water/liquid intake, no caffeine nurse was helping her to commode need to continue strict I/O's for UOP measurement per renal pain meds - prn tylenol colostomy functioning tolerating diet - encouraged to take in more protein, calories supplements with meals arrived and expressed frustration that he feels she isn't eating or drinking unless he can be here to help her, and that he believes she won't be any different or remember things/be less confused by the end of the week....: "by Sunday," he wants to take her out of the hospital, likely to a rehab facility I explained that she is getting attentive care, she is drinking frequently and is likely to always want more to drink, and that she does get fed, but that he is welcome to come and stay with her and feed her anytime he wants; I also tried to explain that she is not medically ready for rehab, and that her wbc ( one of the lab values) is elevated and that we are trying to determine why and if it represents a possible infection. he knows that one medication was stopped today (the abilify), and seemed to think that if he is given papers outlining what she needs when she leaves, that he can take them to a doctor or a rehab and have her get the care she needs, including help at home. i did try to explain that all arrangements will be made when she goes to a rehab facility, and need to be done by the doctors properly, or he will be unable to obtain appropriate services for her, including eventually at home; also, that if he signs her out against medical advice, he will not be provided with everything she will need to stay safe, healthy and cared for, and that he cannot simply take her to a rehab and have her admitted. he seemed to remain unconvinced, and maintained that "he knows" she will not be any different at the end of this week, and possibly even 2-3 weeks from now. he then seemed calmer after feeding her some dinner, and accepted that we are trying to figure out the meaning of her white count elevation. PT seeing, pt will need rehab for wound care, colostomy care and physical therapy on discharge will also eventually need VNS arranged for home after rehab, and possibly evaluation for mobile home mechanic they have a very protective (per other family members) pit bull, which her assured me would be sent to his son's house, in order for VNS or other home care personnel to be able to come over I have serious doubts that she will be able to manage her colostomy alone, and am certain her will not be capable of assisting with wound or colostomy care. incisions generally clean, wound dressings changed continue daily wound care - 2x2 gauze into each site, covered by folded gauze, abd and tape to secure ostomy base changed today, TEMPLATE LEFT for future use skin prep used on all peristomal skin, small bit of Karaya paste left on residual open skin and allowed to dry before placing appliance may need to get proper size convex appliance for ostomy Code(s): K63.1 - PERFORATION OF INTESTINE (NONTRAUMATIC) (2) Stercoral ulcer of large intestine Code(s): K63.3 - ULCER OF INTESTINE (3) Stercolith Code(s): K56.41 - FECAL IMPACTION (4) Constipation Code(s): K59.00 - CONSTIPATION, UNSPECIFIED Qualifiers: Constipation type: chronic idiopathic constipation Qualified Code(s): K59.04 - Chronic idiopathic constipation (5) Diabetes insipidus Assessment/Plan: nephrogenic DI per renal, following likely related to long-term lithium use alert but confused thiazide daily ad kleber free water and clear liquids po monitor closely - she is somewhat independent with PO water intake but still requires assistance with meals need to maintain free intake of fluids Code(s): E23.2 - DIABETES INSIPIDUS (6) Paroxysmal atrial fibrillation Assessment/Plan: cardiology following rate and rhythm controlled on eliquis keep lytes normal ? if should be on telemetry? Code(s): I48.0 - PAROXYSMAL ATRIAL FIBRILLATION (7) Bipolar disorder Assessment/Plan: lithium likely to have contributed to DI it has been stopped abilify had been started, now stopped also per psych unclear if any alternative meds will be needed/appropriate for long-term use Code(s): F31.9 - BIPOLAR DISORDER, UNSPECIFIED Qualifiers: Active/Remission status: in remission of unspecified degree Qualified Code( s): F31.70 - Bipolar disorder, currently in remission, most recent episode unspecified (8) Hypertension Assessment/Plan: on po beta paige and HCTZ Code(s): I10 - ESSENTIAL (PRIMARY) HYPERTENSION Qualifiers: Hypertension type: essential hypertension Qualified Code(s): I10 - Essential (primary) hypertension (9) Hyperlipidemia Code(s): E78.5 - HYPERLIPIDEMIA, UNSPECIFIED Qualifiers: Hyperlipidemia type: unspecified Qualified Code(s): E78.5 - Hyperlipidemia , unspecified (10) Hypothyroidism Assessment/Plan: on po synthroid Code(s): E03.9 - HYPOTHYROIDISM, UNSPECIFIED Qualifiers: Hypothyroidism type: unspecified Qualified Code(s): E03.9 - Hypothyroidism , unspecified (11) Hiatal hernia without gangrene or obstruction Code(s): K44.9 - DIAPHRAGMATIC HERNIA WITHOUT OBSTRUCTION OR GANGRENE
[2018-10-13] MEDS: MEROPENEM 1 GM in DEXTROSE 5%-WATER 100 ML IVPB SCH (18:41)
[2018-10-13] MEDS: METOPROLOL TARTRATE 25 MG TABLET (FP) PO SCH (21:28)
[2018-10-13] MEDS: ACETAMINOPHEN 325 MG TABLET (FP) PO PRN (23:10)
[2018-10-14] MEDS: MEROPENEM 1 GM in DEXTROSE 5%-WATER 100 ML IVPB SCH ×3 (02:35→18:07)
[2018-10-14 06:06] LABS: BASO % 0.6 % (0-2.0); EOS % 1.1 % (0-4.5); HEMATOCRIT 33.7 % (32.4-45.2); HEMOGLOBIN 10.7 GM/dL (10.7-15.3); LYMPH % 9.8 % (8-40); MCHC 31.8 g/dl (32.0-36.0); MEAN CELL VOLUME 81.9 fl (80-96); MEAN PLT VOLUME 9.9 fl (7.5-11.1); MONO % 6.3 % (3.8-10.2); NEUT % 82.2 % (42.8-82.8); PLATELET COUNT 353 K/MM3 (134-434); RBC 4.11 M/mm3 (3.60-5.2); RDW 13.6 % (11.6-15.6)
[2018-10-14] MEDS: LEVOTHYROXINE NA 100 MCG TABLET (FP) PO SCH (06:07)
[2018-10-14] MEDS ORDERED: INSULIN (NOVOLOG) ASPART 100 UNITS/ML 10ML VIAL ONE (06:28)
[2018-10-14 06:40] LABS: ALK PHOS 117 U/L (45-117); ANION GAP 6 MMOL/L (8-16); BILIRUBIN,TOTAL 0.4 mg/dL (0.2-1); BLOOD UREA NITROGEN 22 mg/dL (7-18); CALCIUM 8.6 mg/dL (8.5-10.1); CHLORIDE 109 mmol/L (98-107); CO2 27 mmol/L (21-32); CREATININE 1.2 mg/dL (0.55-1.3); GLUCOSE,RANDOM 86 mg/dL (74-106); POTASSIUM 4.6 mmol/L (3.5-5.1); SGOT/AST 25 U/L (15-37); SGPT/ALT 26 U/L (13-61); SODIUM 141 mmol/L (136-145); TOT PROT 5.8 g/dl (6.4-8.2)
[2018-10-14] MEDS: METOPROLOL TARTRATE 25 MG TABLET (FP) PO SCH ×2 (10:10→22:11)
[2018-10-14] MEDS ORDERED: PT OWN MED DRAWER 7, Y5N ONE ×2 (10:12→17:47)
[2018-10-14] MEDS: HYDROCHLOROTHIAZIDE 25 MG TABLET (FP) PO SCH (10:18)
[2018-10-14] MEDS: NAPH,MB-DB/K PH,MBDB POWDER PACKET PO SCH (10:19)
[2018-10-14] MEDS: APIXABAN 5 MG TABLET PO SCH ×2 (10:19→22:11)
[2018-10-14] MEDS: RANITIDINE HCL 150 MG TABLET (FP) PO SCH ×2 (10:19→22:11)
--- NOTE | 2018-10-14 12:40 | PN ---
Progress Note (short form) - Note Progress Note: Renal follow up for MONIKA Pt seen and examined at the bedside awake and alert no acute complaints tolerating oral diet no cp, sob, abd pain Vital Signs Temperature 98.0 F 10/14/18 10:00 Pulse Rate 96 H 10/14/18 10:00 Respiratory Rate 18 10/14/18 10:00 Blood Pressure 93/67 10/14/18 10:00 O2 Sat by Pulse Oximetry (%) 94 L 10/13/18 21:00 Intake & Output 10/11/18 10/12/18 10/13/18 10/14/18 23:59 23:59 23:59 23:59 Intake Total 2425 915 2140 300 Output Total 5800 1150 800 Balance -3375 -235 1340 300 NAD awake and alert neck supple No LE edema 67 year old woman with hx of bipolar disorder, cholecystitis who presented with constipation and lower abd pain and found to have acute diverticulosis and new Afib with subsequent development of ileus with MONIKA. #MONIKA likely due to renal hypoprofuion, now improved #Hypernatremia secondary to suspected nephrogenic DI due to lithium #Diverticulitis/Ileus s/p surgical intervention #New Afib holding HCTZ this am because of low BP however serum na is WNL continue oral water intake as tolerated if BP allows can attempt to restart HCTZ at lower doer such as 12.5mg Daily surgical follow up pain control trend serum electrolytes and renal function daily Sulaiman Zarate DO
--- NOTE | 2018-10-14 12:40 | PN ---
Progress Note, Physician History of Present Illness: s/p Sidra's procedure for OR findings of stercoral perforation with peritonitis abx resumed when wbc slowly up again, down slightly today/sideways pt seen and examined in bed she is awake but mildly confused pain is controlled but uncomfortable with dressing change tolerating diet and taking ensure with meals, eating only some of meals drinking fluids ad kelber colostomy with liquid brown output, base needed changing overnight because she pulled it off, intact now - Current Medication List Current Medications: Active Medications Acetaminophen (Tylenol -) 650 mg PO Q6H PRN PRN Reason: Pain Level 4 - 10 Last Admin: 10/13/18 23:10 Dose: 650 mg Apixaban (Eliquis -) 5 mg PO BID [facility] Last Admin: 10/14/18 10:19 Dose: 5 mg Diltiazem HCl (Cardizem Injection -) 10 mg IVPUSH Q4H PRN PRN Reason: TACHYCARDIA Hydrochlorothiazide (Hctz -) 25 mg PO DAILY [facility] Last Admin: 10/14/18 10:18 Dose: Not Given Meropenem 1 gm/ Dextrose 100 mls @ 200 mls/hr IVPB Q8H-IV [facility] Last Admin: 10/14/18 10:19 Dose: 200 mls/hr Levothyroxine Sodium (Synthroid -) 100 mcg PO DAILY@0700 [facility] Last Admin: 10/14/18 06:07 Dose: 100 mcg Metoprolol Tartrate (Lopressor -) 25 mg PO BID [facility] Last Admin: 10/14/18 10:10 Dose: Not Given Potassium Phos/Sodium Phos (Phos-Nak Packet -) 1 packet PO DAILY [facility] Last Admin: 10/14/18 10:19 Dose: 1 packet Ranitidine HCl (Zantac -) 150 mg PO BID [facility] Last Admin: 10/14/18 10:19 Dose: 150 mg - Objective Vital Signs: Vital Signs Temperature 98.0 F 10/14/18 10:00 Pulse Rate 96 H 10/14/18 10:00 Respiratory Rate 18 10/14/18 10:00 Blood Pressure 93/67 10/14/18 10:00 O2 Sat by Pulse Oximetry (%) 94 L 10/13/18 21:00 Constitutional: Yes: Well Nourished, No Distress, Calm Eyes: Yes: Conjunctiva Clear, EOM Intact HENT: Yes: Atraumatic, Normocephalic Gastrointestinal: Yes: Soft, Tenderness (incisional only), Other (colostomy pink , patent, productive - base intact, bag empty (emptied earlier)). No: Distention Extremities: No: Cool, Cyanosis Integumentary: Yes: Incision (midline with dressing). No: Jaundice, Rash Wound/Incision: Yes: [place] Intact (between wounds), Dressing Dry and Intact, Dressing Removed (and wound packing changed x4 (2x2's)), Draining (serous on gauze), Unapproximated (between anita). 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 following - on HCTZ daily with improvement in Na, UOP still confused - abilify stopped by psych, off lithium ad kleber free water/liquid intake, no caffeine need to continue strict I/O's for UOP measurement per renal pain meds - prn tylenol colostomy functioning tolerating diet - encouraged to take in more protein, calories taking supplements with meals incisions clean, wound dressings changed continue daily wound care - 2x2 gauze into each site, covered by folded gauze, + /-abd and paper tape to secure ostomy base intact for now, TEMPLATE to be used with changes may need to get proper size convex appliance for ostomy PT seeing, pt will need rehab for wound care, colostomy care and physical therapy on discharge will also eventually need VNS arranged for home after rehab, and possibly evaluation for at home 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 Code(s): K63.1 - PERFORATION OF INTESTINE (NONTRAUMATIC) (2) Stercoral ulcer of large intestine Code(s): K63.3 - ULCER OF INTESTINE (3) Stercolith Code(s): K56.41 - FECAL IMPACTION (4) Constipation Code(s): K59.00 - CONSTIPATION, UNSPECIFIED Qualifiers: Constipation type: chronic idiopathic constipation Qualified Code(s): K59.04 - Chronic idiopathic constipation (5) Diabetes insipidus Assessment/Plan: nephrogenic DI per renal, following likely related to long-term lithium use alert but confused thiazide daily ad kleber free water and clear liquids po monitor closely - she is somewhat independent with PO water intake but still requires assistance with meals need to maintain free intake of fluids Code(s): E23.2 - DIABETES INSIPIDUS (6) Paroxysmal atrial fibrillation Assessment/Plan: cardiology following rate and rhythm controlled on eliquis keep lytes normal ? if should be on telemetry? Code(s): I48.0 - PAROXYSMAL ATRIAL FIBRILLATION (7) Bipolar disorder Assessment/Plan: DI related to long-term lithium use it has been stopped abilify had been started, now stopped also per psych unclear if any alternative meds will be needed/appropriate for long-term use Code(s): F31.9 - BIPOLAR DISORDER, UNSPECIFIED Qualifiers: Active/Remission status: in remission of unspecified degree Qualified Code( s): F31.70 - Bipolar disorder, currently in remission, most recent episode unspecified (8) Hypertension Assessment/Plan: on po beta paige and HCTZ Code(s): I10 - ESSENTIAL (PRIMARY) HYPERTENSION Qualifiers: Hypertension type: essential hypertension Qualified Code(s): I10 - Essential (primary) hypertension (9) Hyperlipidemia Code(s): E78.5 - HYPERLIPIDEMIA, UNSPECIFIED Qualifiers: Hyperlipidemia type: unspecified Qualified Code(s): E78.5 - Hyperlipidemia , unspecified (10) Hypothyroidism Assessment/Plan: on po synthroid Code(s): E03.9 - HYPOTHYROIDISM, UNSPECIFIED Qualifiers: Hypothyroidism type: unspecified Qualified Code(s): E03.9 - Hypothyroidism , unspecified (11) Hiatal hernia without gangrene or obstruction Code(s): K44.9 - DIAPHRAGMATIC HERNIA WITHOUT OBSTRUCTION OR GANGRENE
--- NOTE | 2018-10-14 12:48 | PN ---
Progress Note, Physician History of Present Illness: POD#12 sigmoidectomy with colostomy (Sidra's procedure) for sigmoid stercoral perforation with peritonitis. Remains in NSR. Tolerating regular diet , borderline BP. - Current Medication List Current Medications: Active Medications Acetaminophen (Tylenol -) 650 mg PO Q6H PRN PRN Reason: Pain Level 4 - 10 Last Admin: 10/13/18 23:10 Dose: 650 mg Apixaban (Eliquis -) 5 mg PO BID [facility] Last Admin: 10/14/18 10:19 Dose: 5 mg Diltiazem HCl (Cardizem Injection -) 10 mg IVPUSH Q4H PRN PRN Reason: TACHYCARDIA Hydrochlorothiazide (Hctz -) 25 mg PO DAILY [facility] Last Admin: 10/14/18 10:18 Dose: Not Given Meropenem 1 gm/ Dextrose 100 mls @ 200 mls/hr IVPB Q8H-IV [facility] Last Admin: 10/14/18 10:19 Dose: 200 mls/hr Levothyroxine Sodium (Synthroid -) 100 mcg PO DAILY@0700 [facility] Last Admin: 10/14/18 06:07 Dose: 100 mcg Metoprolol Tartrate (Lopressor -) 25 mg PO BID [facility] Last Admin: 10/14/18 10:10 Dose: Not Given Potassium Phos/Sodium Phos (Phos-Nak Packet -) 1 packet PO DAILY [facility] Last Admin: 10/14/18 10:19 Dose: 1 packet Ranitidine HCl (Zantac -) 150 mg PO BID [facility] Last Admin: 10/14/18 10:19 Dose: 150 mg - Objective Vital Signs: Vital Signs Temperature 98.0 F 10/14/18 10:00 Pulse Rate 96 H 10/14/18 10:00 Respiratory Rate 18 10/14/18 10:00 Blood Pressure 93/67 10/14/18 10:00 O2 Sat by Pulse Oximetry (%) 94 L 10/13/18 21:00 Constitutional: Yes: No Distress, Calm, Thin Neck: Yes: Supple Cardiovascular: Yes: Regular Rate and Rhythm Respiratory: Yes: Regular, Diminished Gastrointestinal: Yes: Normal Bowel Sounds, Soft, Other (Colostomy in place) Edema: No Labs: CBC, BMP 10/14/18 05:30 10/14/18 05:30 INR, PTT INR 1.32 (0.83-1.09) H 10/08/18 05:15 Problem List - Problems (1) Diverticulitis of large intestine with perforation without abscess or bleeding Code(s): K57.20 - DVTRCLI OF LG INT W PERFORATION AND ABSCESS W/O BLEEDING (2) Hyperlipidemia Code(s): E78.5 - HYPERLIPIDEMIA, UNSPECIFIED Qualifiers: Hyperlipidemia type: unspecified Qualified Code(s): E78.5 - Hyperlipidemia , unspecified (3) Hypertension Code(s): I10 - ESSENTIAL (PRIMARY) HYPERTENSION Qualifiers: Hypertension type: essential hypertension Qualified Code(s): I10 - Essential (primary) hypertension (4) Hypothyroidism Code(s): E03.9 - HYPOTHYROIDISM, UNSPECIFIED Qualifiers: Hypothyroidism type: unspecified Qualified Code(s): E03.9 - Hypothyroidism , unspecified (5) Paroxysmal atrial fibrillation Code(s): I48.0 - PAROXYSMAL ATRIAL FIBRILLATION (6) History of open sigmoidectomy Code(s): Z98.890 - OTHER SPECIFIED POSTPROCEDURAL STATES; Z90.49 - ACQUIRED ABSENCE OF OTHER SPECIFIED PARTS OF DIGESTIVE TRACT Assessment/Plan 09/30/2018 Echo: Normal LV size and fxn LVEF 60-65%, mildly impaired LV compliance, normal RV fxn, normal atrial sizes, mild TR, trace-mild MR 1. POD#12 sigmoidectomy with colostomy (Sidra's procedure) for sigmoid stercoral perforation with peritonitis 2. Paroxysmal atrial fibrillation [id number] score of 3 currently on Eliquis 3. Diastolic LV dysfunction with clinical class 0 NYHA classification LV failure 4. Hypertension 5. Hypothyroidism 6. Bipolar disorder, paranoid behavior 7. Acute on CKD due to renal hypoperfusion improved 8. 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 Continue Eliquis 5 bid 2. Continue Lopressor 25 bid, recheck thyroid panel 3. Continue IV Cardizem as needed for rate control 4. Resumed antibiotic course per ID 5. Ambulate as tolerated
--- NOTE | 2018-10-14 12:55 | PN ---
Progress Note, Physician History of Present Illness: patient stable wound changed by surgery wound looks clean wbc still high but trending down now more awake and alert but confusion still present - Current Medication List Current Medications: Active Medications Acetaminophen (Tylenol -) 650 mg PO Q6H PRN PRN Reason: Pain Level 4 - 10 Last Admin: 10/13/18 23:10 Dose: 650 mg Apixaban (Eliquis -) 5 mg PO BID [facility] Last Admin: 10/14/18 10:19 Dose: 5 mg Diltiazem HCl (Cardizem Injection -) 10 mg IVPUSH Q4H PRN PRN Reason: TACHYCARDIA Hydrochlorothiazide (Hctz -) 25 mg PO DAILY [facility] Last Admin: 10/14/18 10:18 Dose: Not Given Meropenem 1 gm/ Dextrose 100 mls @ 200 mls/hr IVPB Q8H-IV [facility] Last Admin: 10/14/18 10:19 Dose: 200 mls/hr Levothyroxine Sodium (Synthroid -) 100 mcg PO DAILY@0700 [facility] Last Admin: 10/14/18 06:07 Dose: 100 mcg Metoprolol Tartrate (Lopressor -) 25 mg PO BID [facility] Last Admin: 10/14/18 10:10 Dose: Not Given Potassium Phos/Sodium Phos (Phos-Nak Packet -) 1 packet PO DAILY [facility] Last Admin: 10/14/18 10:19 Dose: 1 packet Ranitidine HCl (Zantac -) 150 mg PO BID [facility] Last Admin: 10/14/18 10:19 Dose: 150 mg - Objective Vital Signs: Vital Signs Temperature 98.0 F 10/14/18 10:00 Pulse Rate 96 H 10/14/18 10:00 Respiratory Rate 18 10/14/18 10:00 Blood Pressure 93/67 10/14/18 10:00 O2 Sat by Pulse Oximetry (%) 94 L 10/13/18 21:00 Constitutional: Yes: No Distress, Calm Cardiovascular: Yes: Regular Rate and Rhythm Respiratory: Yes: Regular, CTA Bilaterally Gastrointestinal: Yes: Normal Bowel Sounds, Soft Musculoskeletal: Yes: WNL Extremities: Yes: WNL Neurological: Yes: Alert Psychiatric: Yes: Alert Labs: CBC, BMP 10/14/18 05:30 10/14/18 05:30 INR, PTT INR 1.32 (0.83-1.09) H 10/08/18 05:15 Assessment/Plan - Problems (1) Diverticulitis of large intestine with perforation without abscess or bleeding Code(s): K57.20 - DVTRCLI OF LG INT W PERFORATION AND ABSCESS W/O BLEEDING (2) Suprapubic pain Code(s): R10.2 - PELVIC AND PERINEAL PAIN (3) Constipation Code(s): K59.00 - CONSTIPATION, UNSPECIFIED Qualifiers: Constipation type: other constipation type Qualified Code(s): K59.09 - Other constipation (4) Paroxysmal atrial fibrillation Code(s): I48.0 - PAROXYSMAL ATRIAL FIBRILLATION (5) Bipolar disorder Code(s): F31.9 - BIPOLAR DISORDER, UNSPECIFIED Qualifiers: Active/Remission status: in remission of unspecified degree Qualified Code( s): F31.70 - Bipolar disorder, currently in remission, most recent episode unspecified (6) Hypertension Code(s): I10 - ESSENTIAL (PRIMARY) HYPERTENSION Qualifiers: Hypertension type: essential hypertension Qualified Code(s): I10 - Essential (primary) hypertension (7) Hyperlipidemia Code(s): E78.5 - HYPERLIPIDEMIA, UNSPECIFIED Qualifiers: Hyperlipidemia type: unspecified Qualified Code(s): E78.5 - Hyperlipidemia , unspecified (8) Hypothyroidism Code(s): E03.9 - HYPOTHYROIDISM, UNSPECIFIED Qualifiers: Hypothyroidism type: unspecified Qualified Code(s): E03.9 - Hypothyroidism , unspecified (9) Hiatal hernia without gangrene or obstruction Code(s): K44.9 - DIAPHRAGMATIC HERNIA WITHOUT OBSTRUCTION OR GANGRENE plan will continue abx incentive glen will d/w with surgical team wound care rest as per the team
[2018-10-14] MEDS: ACETAMINOPHEN 325 MG TABLET (FP) PO PRN (15:40)
--- NOTE | 2018-10-14 18:07 | PN ---
Physical Exam: SUBJECTIVE: Patient seen and examined. No acute events overnight. Still confused. Offers no complaints. OBJECTIVE: Vital Signs Period Temp Pulse Resp BP Sys/Cohi Pulse Ox Last 24 Hr 97.8 F-98.2 F 70-96 17-20 93-119/67-70 94-99 GENERAL: A/o x 2, in NAD EYES: PERRL,conjunctiva clear. ENT: moist mucous membranes. NECK: supple. LUNGS: decreased breath sounds at bases HEART: RRR, s1 s2 ABDOMEN: Soft. Midline laparotomy incision dressed. Soft brown stool in Colostomy. Bowel Sounds normal. EXTREMITIES: no edema. No calf tenderness. RUE bruising form repeated IV access/ blood draws. No signs of infection/phlebitis. Laboratory Results - last 24 hr 10/14/18 10/14/18 05:30 05:30 WBC 14.0 H RBC 4.11 Hgb 10.7 Hct 33.7 MCV 81.9 MCH 26.0 MCHC 31.8 L RDW 13.6 Plt Count 353 MPV 9.9 Absolute Neuts (auto) 11.5 H Neutrophils % 82.2 Lymphocytes % 9.8 D Monocytes % 6.3 Eosinophils % 1.1 Basophils % 0.6 D Nucleated RBC % 0 Sodium 141 Potassium 4.6 Chloride 109 H Carbon Dioxide 27 Anion Gap 6 L BUN 22 H Creatinine 1.2 Creat Clearance w eGFR 44.54 Random Glucose 86 Calcium 8.6 Phosphorus 3.0 Magnesium 2.0 Total Bilirubin 0.4 AST 25 ALT 26 Alkaline Phosphatase 117 Total Protein 5.8 L Albumin 2.0 L TSH 41.80 H Active Medications Generic Name Dose Route Start Last Admin Trade Name Freq PRN Reason Stop Dose Admin Acetaminophen 650 mg 10/12/18 14:04 10/14/18 15:40 Tylenol - PO 650 mg Q6H PRN Administration Pain Level 4 - 10 Apixaban 5 mg 10/10/18 22:00 10/14/18 10:19 Eliquis - PO 5 mg BID THOMAS Administration Diltiazem HCl 10 mg 10/10/18 15:27 Cardizem Injection - IVPUSH Q4H PRN TACHYCARDIA Hydrochlorothiazide 25 mg 10/14/18 10:00 10/14/18 10:18 Hctz - PO Not Given DAILY THOMAS Meropenem 1 gm/ Dextrose 100 mls @ 200 mls/hr 10/13/18 14:15 10/14/18 10:19 IVPB 200 mls/hr Q8H-IV THOMAS Administration Levothyroxine Sodium 100 mcg 10/11/18 07:00 10/14/18 06:07 Synthroid - PO 100 mcg DAILY@0700 THOMAS Administration Metoprolol Tartrate 25 mg 10/13/18 22:00 10/14/18 10:10 Lopressor - PO Not Given BID THOMAS Potassium Phos/Sodium Phos 1 packet 10/10/18 10:00 10/14/18 10:19 Phos-Nak Packet - PO 1 packet DAILY THOMAS Administration Ranitidine HCl 150 mg 10/10/18 22:00 10/14/18 10:19 Zantac - PO 150 mg BID THOMAS Administration ASSESSMENT/PLAN: 67 year old female with Bipolar Disorder, Hypothyroidism, presented with abdominal pain and developed sepsis secondary to Stercoral perforation and Peritonitis, currently POD 11 s/p Sidra's. #Sepsis secondary to stercoral perforation with peritonitis Peritoneal culture positive for Prevotella s/p Sidra procedure 10/02 (sigmoidectomy with colostomy) POD 12 Afebrile, hemodynamically stable, but WBC 14 (14.5 yesterday) Antibiotics Merrem and Vancomycin discontinued 10/11 - meropenem restarted Re-culture, CXR, ID following. Tolerating oral intake. Colostomy functioning. #Hypernatremia, secondary to diabetes insipidus from lithium -resolved Improved HCTZ. IV fluids discontinued 10/11. Na 141. Will monitor daily electrolytes. Nephrology following. #Paroxysmal atrial fib - new - now in SR - Continue Lopressor, Eliquis. Echo - mild diastolic dysfucntion. Cardiology following. #Chronic diastolic dysfunction/CHF - Stable - no evidence for decompensation. #Hypokalemia - Resolved. #Acute kidney injury secondary to sepsis/hypoperfusion - resolved. #Acute metabolic encephalopathy - Multifactorial, including sepsis, hypernatremia, Delirium/ ICU psychosis Improving but still not fully oriented. Currently AAO x 2 Psychiatry re-eval requested - Abilify d/c'd #Bipolar disorder - [place] held given DI. Psychiatry evaluated and initially switched to Abilify, now discontinued due to waning mental status. #Hypothyroidism - TSH 41. Continue Synthroid. Will discuss with endocrine if possible cause of confusion?? #HTN - Continue Lopressor, HCTZ #Protein calorie malnutrition - Acute. Encourage oral intake with protein supplementation. #Dispo - likely rehab/SNF. PT. DVT Px - on Eliquis GI Px - on Ranitidine Visit type - Emergency Visit Emergency Visit: Yes ED Registration Date: 09/28/18 Care time: The patient presented to the Emergency Department on the above date and was hospitalized for further evaluation of their emergent condition. - New Patient This patient is new to me today: Yes Date on this admission: 10/17/18 - Critical Care Critical Care patient: No
--- NOTE | 2018-10-14 18:17 | PN ---
Teaching Attending Note Name of Resident: Airam Welsh ATTENDING PHYSICIAN STATEMENT I saw and evaluated the patient. I reviewed the resident's note and discussed the case with the resident. I agree with the resident's findings and plan as documented. SUBJECTIVE: More awake and alert, still mildly confused. Denies any complaints. Tolerating liquids, ensure and half of her meals. No fever/chills. OBJECTIVE: Afebrile, Hemodynamically Stable. Last Vital Signs Temp Pulse Resp BP Pulse Ox 98.2 F 90 17 116/69 99 10/14/18 14:27 10/14/18 14:27 10/14/18 14:27 10/14/18 14:27 10/14/18 10:00 Neuro - More awake. AAO x 2. Tone/Power normal all 4 extremities. HEENT - No pharyngeal erythema/exudate. Heart - S1, S2, RRR Lungs - decreased air entry bibasally Abdomen - generalized tenderness. Laparotomy incision dressed, reportedly clean. soft brown stool in Colostomy. Extremities - no edema/calf tenderness. R and L UE extensive bruising due to repeated IV access/IV catheter insertions - no signs of infection/phlebitis. Laboratory Results - last 24 hr 10/14/18 10/14/18 05:30 05:30 WBC 14.0 H RBC 4.11 Hgb 10.7 Hct 33.7 MCV 81.9 MCH 26.0 MCHC 31.8 L RDW 13.6 Plt Count 353 MPV 9.9 Absolute Neuts (auto) 11.5 H Neutrophils % 82.2 Lymphocytes % 9.8 D Monocytes % 6.3 Eosinophils % 1.1 Basophils % 0.6 D Nucleated RBC % 0 Sodium 141 Potassium 4.6 Chloride 109 H Carbon Dioxide 27 Anion Gap 6 L BUN 22 H Creatinine 1.2 Creat Clearance w eGFR 44.54 Random Glucose 86 Calcium 8.6 Phosphorus 3.0 Magnesium 2.0 Total Bilirubin 0.4 AST 25 ALT 26 Alkaline Phosphatase 117 Total Protein 5.8 L Albumin 2.0 L TSH 41.80 H Current Medications Generic Name Dose Route Start Last Admin Trade Name Freq PRN Reason Stop Dose Admin Acetaminophen 650 mg 10/12/18 14:04 10/14/18 15:40 Tylenol - PO 650 mg Q6H PRN Administration Pain Level 4 - 10 Apixaban 5 mg 10/10/18 22:00 10/14/18 10:19 Eliquis - PO 5 mg BID THOMAS Administration Diltiazem HCl 10 mg 10/10/18 15:27 Cardizem Injection - IVPUSH Q4H PRN TACHYCARDIA Hydrochlorothiazide 25 mg 10/14/18 10:00 10/14/18 10:18 Hctz - PO Not Given DAILY THOMAS Meropenem 1 gm/ Dextrose 100 mls @ 200 mls/hr 10/13/18 14:15 10/14/18 10:19 IVPB 200 mls/hr Q8H-IV THOMAS Administration Levothyroxine Sodium 100 mcg 10/11/18 07:00 10/14/18 06:07 Synthroid - PO 100 mcg DAILY@0700 THOMAS Administration Metoprolol Tartrate 25 mg 10/13/18 22:00 10/14/18 10:10 Lopressor - PO Not Given BID THOMAS Potassium Phos/Sodium Phos 1 packet 10/10/18 10:00 10/14/18 10:19 Phos-Nak Packet - PO 1 packet DAILY THOMAS Administration Ranitidine HCl 150 mg 10/10/18 22:00 10/14/18 10:19 Zantac - PO 150 mg BID THOMAS Administration ASSESSMENT AND PLAN: 67 year old female with Bipolar Disorder, Hypothyroidism, presented with abdominal pain and developed sepsis secondary to Stercoral perforation and Peritonitis, currently POD 12 s/p Sidra's. 1. Sepsis secondary to stercoral perforation with peritonitis Peritoneal culture positive for Prevotella s/p Sidra procedure 10/02 (sigmoidectomy with colostomy) POD 12 Afebrile, hemodynamically stable, but WBC up to 14, down from 14.5 yesterday. Antibiotics Merrem and Vancomycin discontinued 10/11 - but Meropenem resumed on 10/13 due to leukocytosis and low grade temp. Re-cultured (results pending), CXR - improved, ID following. Tolerating oral intake. Colostomy functioning. 2. 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 IV fluids discontinued 10/11. HCTZ held today due to borderline BP. Na 141. Will monitor daily electrolytes. Nephrology following. 3. Paroxysmal atrial fib - new - now in SR - Continue Lopressor, Eliquis. Echo - mild diastolic dysfunction. Cardiology following. 4. Chronic diastolic dysfunction/CHF - Stable - no evidence for decompensation. 5. Hypokalemia - Resolved. 6. Acute kidney injury secondary to sepsis/hypoperfusion - resolved. 7. Acute metabolic encephalopathy - Multifactorial, including sepsis, hypernatremia, Delirium/ ICU psychosis Improving but still not fully oriented. Currently AAO x 2 Abilify discontinued 10/13 on recommendation of Psychiatry - patient more awake and participatory today. 8. Bipolar disorder - [place] held given DI. Psychiatry evaluated and initially switched to Abilify, now discontinued due to waning mental status. 9. Hypothyroidism - TSH 41.8 - unclear significance in an acutely unwell patient. Will discuss with Endocrinology. Continue current Synthroid dose. 10. HTN - Continue Lopressor, HCTZ 11. Protein calorie malnutrition - Acute. Encourage oral intake with protein supplementation. 12. Dispo - likely rehab/SNF. DVT Px - on Eliquis GI Px - on Ranitidine
[2018-10-15] MEDS: MEROPENEM 1 GM in DEXTROSE 5%-WATER 100 ML IVPB SCH ×3 (02:56→17:11)
--- NOTE | 2018-10-15 06:44 | HOSP ---
Physical Examination Vital Signs: Vital Signs Temperature 98.4 F 10/14/18 22:13 Pulse Rate 84 10/14/18 22:13 Respiratory Rate 18 10/14/18 22:13 Blood Pressure 108/66 10/14/18 22:13 O2 Sat by Pulse Oximetry (%) 98 10/14/18 21:00 Hospitalist Encounter Assessment: called by nurse for unwitnessed fall. pt denies LOC or hitting head. pt was trying to get out of bed and felt weak and dropped to her knees. denies any bleeding or pain. PE no bruising or neuro deficits. strength sensation intact RRR CTAB NTND CN I-XII intact AOx2 does not know year (baseline) pt on eliquis. will order CT head to r/o bleed Visit type - Emergency Visit Emergency Visit: Yes ED Registration Date: 09/28/18 Care time: The patient presented to the Emergency Department on the above date and was hospitalized for further evaluation of their emergent condition. - New Patient This patient is new to me today: Yes Date on this admission: 10/15/18 - Critical Care Critical Care patient: No
[2018-10-15] MEDS: LEVOTHYROXINE NA 100 MCG TABLET (FP) PO SCH (06:46)
[2018-10-15 06:50] LABS: HEMATOCRIT 30.1 % (32.4-45.2); HEMOGLOBIN 10.2 GM/dL (10.7-15.3); MCH 27.6 pg (25.7-33.7); MEAN CELL VOLUME 81.4 fl (80-96); PLATELET COUNT 385 K/MM3 (134-434); RDW 13.3 % (11.6-15.6); WHITE BLOOD COUNT 9.4 K/mm3 (4.0-10.0)
[2018-10-15 07:21] LABS: ALBUMIN 1.9 g/dl (3.4-5.0); ALK PHOS 108 U/L (45-117); ANION GAP 5 MMOL/L (8-16); BILIRUBIN,TOTAL 0.3 mg/dL (0.2-1); BLOOD UREA NITROGEN 20 mg/dL (7-18); CALCIUM 8.6 mg/dL (8.5-10.1); CHLORIDE 106 mmol/L (98-107); CO2 28 mmol/L (21-32); CREATININE 1.2 mg/dL (0.55-1.3); GLUCOSE,RANDOM 82 mg/dL (74-106); MAGNESIUM 1.8 mg/dL (1.8-2.4); PHOSPHOROUS 3.2 mg/dL (2.5-4.9); POTASSIUM 4.5 mmol/L (3.5-5.1); SGOT/AST 32 U/L (15-37); SGPT/ALT 38 U/L (13-61); SODIUM 139 mmol/L (136-145); TOT PROT 5.8 g/dl (6.4-8.2)
--- NOTE | 2018-10-15 08:10 | PN ---
Physical Exam: SUBJECTIVE: Patient seen and examined this AM. She is mildly confused but knows she is in the hospital. Fall noted this AM. Pt states she tried to stand up on her own, felt weak and fell to her knees. She denies LOC or head trauma. Currently states she is feeling well with no complaints. OBJECTIVE: Vital Signs Period Temp Pulse Resp BP Sys/Choi Pulse Ox Last 24 Hr 98.0 F-99.1 F 84-96 17-18 93-162/59-82 98-99 GENERAL: A&O X 2, pt knows she is in the hospital but thinks it is called [facility], no acute distress HEAD: Normocephalic, atraumatic. EYES: PERRL, no scleral icterus EARS, NOSE, THROAT: oropharynx clear without exudates. Moist mucous membranes. NECK: supple without lymphadenopathy LUNGS: CTA b/l, no crackles or wheezes HEART: Regular rate and rhythm, normal S1 and S2 without murmur ABDOMEN: Soft, nontender to palpation, normoactive bowel sounds, colostomy bag in tact without erythema or drainage EXTREMITIES: 2+ pulses, warm, well-perfused. No peripheral edema. NEUROLOGICAL: Cranial nerves II-XII grossly intact. Normal speech. PSYCHIATRIC: Cooperative. Good eye contact. Appropriate mood and affect. Laboratory Results - last 24 hr 10/15/18 10/15/18 06:20 06:20 WBC 9.4 RBC 3.70 Hgb 10.2 L Hct 30.1 L MCV 81.4 MCH 27.6 MCHC 34.0 RDW 13.3 Plt Count 385 MPV 10.0 Sodium 139 Potassium 4.5 Chloride 106 Carbon Dioxide 28 Anion Gap 5 L BUN 20 H Creatinine 1.2 Creat Clearance w eGFR 44.54 Random Glucose 82 Calcium 8.6 Phosphorus 3.2 Magnesium 1.8 Total Bilirubin 0.3 AST 32 ALT 38 Alkaline Phosphatase 108 Total Protein 5.8 L Albumin 1.9 L Free T4 1.30 Active Medications Generic Name Dose Route Start Last Admin Trade Name Freq PRN Reason Stop Dose Admin Acetaminophen 650 mg 10/12/18 14:04 10/14/18 15:40 Tylenol - PO 650 mg Q6H PRN Administration Pain Level 4 - 10 Apixaban 5 mg 10/10/18 22:00 10/14/18 22:11 Eliquis - PO 5 mg BID THOMAS Administration Diltiazem HCl 10 mg 10/10/18 15:27 Cardizem Injection - IVPUSH Q4H PRN TACHYCARDIA Hydrochlorothiazide 25 mg 10/14/18 10:00 10/14/18 10:18 Hctz - PO Not Given DAILY THOMAS Meropenem 1 gm/ Dextrose 100 mls @ 200 mls/hr 10/13/18 14:15 10/15/18 02:56 IVPB 200 mls/hr Q8H-IV THOMAS Administration Levothyroxine Sodium 100 mcg 10/11/18 07:00 10/15/18 06:46 Synthroid - PO 100 mcg DAILY@0700 THOMAS Administration Metoprolol Tartrate 25 mg 10/13/18 22:00 10/14/18 22:11 Lopressor - PO 25 mg BID THOMAS Administration Potassium Phos/Sodium Phos 1 packet 10/10/18 10:00 10/14/18 10:19 Phos-Nak Packet - PO 1 packet DAILY THOMAS Administration Ranitidine HCl 150 mg 10/10/18 22:00 10/14/18 22:11 Zantac - PO 150 mg BID THOMAS Administration ASSESSMENT/PLAN: 67 y/o female with PMH of Cholecystitis, Hypothyroidism and Bipolar Disorder admitted for colonic perforation. She developed sepsis secondary to the perforation and peritonitis and is s/p Sidra's procedure POD 13. Sepsis Secondary to Stercoral Perforation and Peritonitis -S/P Sidra's procedure POD 13 -ID Consult appreciated -Received Vanco/Meropenem - d/c 10/11 -Pt spiked temp and WBC elevated so Meropenem restarted on 10/13 -WBC resolved today -Afebrile -Will await ID recommendation for length of antibiotics -Surgery consult appreciated -Pt with colostomy that is in tact and clean without erythema -Pt will likely need VNS for assistance with colostomy care Hypothyroidism -TSH 1.37 on admission -Repeat TSH now 42 and 51 the last two days, could be secondary to acute process -Free T4 1.4, Free T3 and Total T3 pending -Endocrinology Consult placed, will await further recommendations and continue current synthroid dose for now -Synthroid 100 mcg PO AM Paroxysmal A-fib, new onset -New onset on this admission, likely induced by sepsis/demand -Currently in Normal Sinus -Eliquis 5 mg PO BID -Lopressor 25 mg PO BID for rate control -Cardiology Consult appreciated Acute Metabolic Encephalopathy vs Chronic Psychiatric Disorder -Bipolar Disorder on [place], admitted with hypernatremia 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 -[place] held as per psychiatry -Pt mental status is improving, AOX2 this morning -Will discuss with family about pt baseline HyperNatremia - resolved -as above MONIKA - resolved -likely secondary to sepsis/hypoperfusion Protein Calorie Malnutrition -Likely secondary to decreased PO intake -Encourage PO Intake -Ensure with every meal DVT Prophylaxis -Eliquis 5 mg PO BID FEN -Fluids: None -Electrolytes: No electrolyte abnormalities, BMP in AM -Nutrition: Na Controlled Diet with Ensure with every meal Disposition Med/Surg Visit type - Emergency Visit Emergency Visit: Yes ED Registration Date: 09/28/18 Care time: The patient presented to the Emergency Department on the above date and was hospitalized for further evaluation of their emergent condition. - New Patient This patient is new to me today: Yes Date on this admission: 10/15/18 - Critical Care Critical Care patient: No
--- NOTE | 2018-10-15 08:41 | PN ---
Teaching Attending Note Name of Resident: Thomas Cloud ATTENDING PHYSICIAN STATEMENT I saw and evaluated the patient. I reviewed the resident's note and discussed the case with the resident. I agree with the resident's findings and plan as documented with exceptions below. SUBJECTIVE: Patient seen and examined. Awake pleasant, oriented to self, knows is in [place] , oriented to month. Denies any pain or complaints. OBJECTIVE: Vital Signs Period Temp Pulse Resp BP Sys/Choi Pulse Ox Last 24 Hr 98.0 F-99.1 F 84-96 17-18 93-162/59-82 98-99 Intake & Output 10/12/18 10/13/18 10/14/18 10/15/18 23:59 23:59 23:59 23:59 Intake Total 915 2140 1050 450 Output Total 1150 800 Balance -235 1340 1050 450 General: sitting in bed awake pleasant, oriented to slept, knows is in [place], oriented to month but not year Chest: good air entry bilaterally, no rales or wheezing Abdomen: soft, mild tenderness around surgical site, dressing clean, left colostomy, positive bowel sounds, no voluntary or involuntary guarding or rigidity Extremities: no edema Home Medications Medication Instructions Recorded Atorvastatin Ca [Lipitor] 5 mg PO HS 02/23/17 Levothyroxine [Synthroid -] 100 mcg PO DAILY 02/23/17 [place] Carbonate [Eskalith -] 300 mg PO DAILY 02/23/17 Meclizine HCl 12.5 mg PO BID PRN 02/23/17 Rizatriptan Benzoate [Maxalt] 10 mg PO PRN PRN 02/23/17 Loratadine [Claritin] 10 mg PO DAILY 09/27/18 Calcium Carb, Citrate/Vit D3 1 each PO BID 09/29/18 [Citracal + D ER Tablet] Glucosa Teixeira 2Kcl/Chondroitin [place] 2 each PO DAILY 09/29/18 [Glucosamine & Chondroitin Cap] Oxybutynin Chloride 5 mg PO DAILY 09/29/18 Sodium Chloride [Saline Nasal 45 ml NS PRN PRN 09/29/18 [place]] Active Medications Acetaminophen (Tylenol -) 650 mg PO Q6H PRN PRN Reason: Pain Level 4 - 10 Last Admin: 10/14/18 15:40 Dose: 650 mg Apixaban (Eliquis -) 5 mg PO BID [facility] Last Admin: 10/14/18 22:11 Dose: 5 mg Diltiazem HCl (Cardizem Injection -) 10 mg IVPUSH Q4H PRN PRN Reason: TACHYCARDIA Hydrochlorothiazide (Hctz -) 25 mg PO DAILY [facility] Last Admin: 10/14/18 10:18 Dose: Not Given Meropenem 1 gm/ Dextrose 100 mls @ 200 mls/hr IVPB Q8H-IV [facility] Last Admin: 10/15/18 02:56 Dose: 200 mls/hr Levothyroxine Sodium (Synthroid -) 100 mcg PO DAILY@0700 [facility] Last Admin: 10/15/18 06:46 Dose: 100 mcg Metoprolol Tartrate (Lopressor -) 25 mg PO BID [facility] Last Admin: 10/14/18 22:11 Dose: 25 mg Potassium Phos/Sodium Phos (Phos-Nak Packet -) 1 packet PO DAILY [facility] Last Admin: 10/14/18 10:19 Dose: 1 packet Ranitidine HCl (Zantac -) 150 mg PO BID [facility] Last Admin: 10/14/18 22:11 Dose: 150 mg Laboratory Results - last 24 hr 10/15/18 10/15/18 06:20 06:20 WBC 9.4 RBC 3.70 Hgb 10.2 L Hct 30.1 L MCV 81.4 MCH 27.6 MCHC 34.0 RDW 13.3 Plt Count 385 MPV 10.0 Sodium 139 Potassium 4.5 Chloride 106 Carbon Dioxide 28 Anion Gap 5 L BUN 20 H Creatinine 1.2 Creat Clearance w eGFR 44.54 Random Glucose 82 Calcium 8.6 Phosphorus 3.2 Magnesium 1.8 Total Bilirubin 0.3 AST 32 ALT 38 Alkaline Phosphatase 108 Total Protein 5.8 L Albumin 1.9 L Free T4 1.30 Microbiology 10/13/18 16:40 Blood - Peripheral Venous Blood Culture - Preliminary NO GROWTH OBTAINED AFTER 24 HOURS, INCUBATION TO CONTINUE FOR 4 DAYS. 10/13/18 16:45 Blood - Peripheral Venous Blood Culture - Preliminary NO GROWTH OBTAINED AFTER 24 HOURS, INCUBATION TO CONTINUE FOR 4 DAYS. 10/05/18 12:10 Blood - Peripheral Venous Blood Culture - Final NO GROWTH AFTER 5 DAYS INCUBATION 10/05/18 12:00 Blood - Peripheral Venous Blood Culture - Final NO GROWTH AFTER 5 DAYS INCUBATION 10/02/18 15:40 Peritoneal Fluid Gram Stain - Final 12/05/18 15:40 Peritoneal Fluid Body Fluid Culture - Final 10/02/18 15:40 Peritoneal Fluid Anaerobic Culture - Final NO ANAEROBES WERE ISOLATED 10/02/18 15:40 Peritoneal Fluid Gram Stain - Final 10/02/18 15:40 Peritoneal Fluid Body Fluid Culture - Final 10/02/18 15:40 Peritoneal Fluid Anaerobic Culture - Final Prevotella Melaninogenica 09/28/18 15:15 Blood - Peripheral Venous Blood Culture - Final NO GROWTH AFTER 5 DAYS INCUBATION 09/28/18 14:52 Blood - Peripheral Venous Blood Culture - Final NO GROWTH AFTER 5 DAYS INCUBATION ASSESSMENT AND PLAN: 67 year old female with Bipolar Disorder, Hypothyroidism, presented with abdominal pain and developed sepsis secondary to Stercoral perforation and Peritonitis, currently s/p Sidra's, also with New onset Afib with RVR, hypernatremia and AMS. -Sepsis due stercoral perforation with peritonitis s/p Sidra procedure 10/02 ( Sigmoidectomy with colostomy) POD #13, peritoneal culture positive for prevotella -Hypernatremia due to DI from [place] -New onset Afib with RVR -Chronic diastolic dysfunction -Hypokalemia -MONIKA, due to sepsis/hypovolumia, resolved -AMS, suspected multifactorial toxic metabolic encephalopathy from sepsis/ hypernatremia/Delirium/ICU psychosis, superimposed on underlying psychiatric disorder -Bipolar disorder -Hypothyroidism -HTN -Protein Calorie Malnutrition Plan: WBC normalized. s/p Meropenem/Vanco (D/dino 10/11). Meropenem resumed 10/13 given leucocytosis/ low grade temp. WBC normalized, follow up with ID Repeat cultures neg so far. Tolerating diet, colostomy care. Na improved with D5W/HYCTZ. IVF d/dino 10/11. HCTZ as BP tolerates. Monitor lytes. Nephrology input appreciated. Cardiology input noted, 2D echo reviewed. Lopressor/Eliquis. Psychiatry input noted. Off Li. Trial with abilify , d/dino 10/13. Repeat TSH 41.8. T4 normal. Repeat TSH noted. Endocrine consult. Dispo anticipate SNF in 1-2 days pending ID plan and disposition arrangements. DVTPPX eliquis GIPPX ranitidine. Plan discussed with patient, social work, all questions answered.
[2018-10-15] MEDS ORDERED: PT OWN MED DRAWER 7, Y5N ONE ×2 (09:26→16:59)
[2018-10-15] MEDS: APIXABAN 5 MG TABLET PO SCH ×2 (09:52→21:25)
[2018-10-15] MEDS: METOPROLOL TARTRATE 25 MG TABLET (FP) PO SCH ×2 (09:53→21:25)
[2018-10-15] MEDS: RANITIDINE HCL 150 MG TABLET (FP) PO SCH ×2 (09:53→21:25)
[2018-10-15] MEDS: NAPH,MB-DB/K PH,MBDB POWDER PACKET PO SCH (09:53)
[2018-10-15] MEDS: HYDROCHLOROTHIAZIDE 25 MG TABLET (FP) PO SCH (10:30)
--- NOTE | 2018-10-15 11:02 | CONSULT ---
Consult Consult Specialty:: Endocrinology Referred by:: Airam Welsh MD Reason for Consultation:: Hypothyroidism - History of Present Illness Chief Complaint: Hypothyroidism History of Present Illness: This is a 67 year old woman with hx of bipolar disorder, cholecystitis, hypothyroidism who presented with constipation and lower abd pain and found to have diverticulosis and new Afib with subsequent development of perforation with MONIKA. Pt is s/p sigmoidectomy with colostomy (Sidra's procedure) on 10/02. Pt is awake and alert at the bedside, Pt found to have elevated TSH of 41.8 and 50.8 now from 1.37 on 09/29/18. Pt has been getting LT4 100mcg daily in the hospital since admission. 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: Migraine, Vertigo Cardio/Vascular: Yes: HTN, Hyperlipdemia Pulmonary: Yes: Asthma Gastrointestinal: Yes: Constipation, Hiatal Hernia Psych: Yes: Anxiety, Bipolar, Depression ENT: Yes: Allergic Rhinitis Endocrine: Yes: Hypothyroidism - Past Surgical History Past Surgical History: Yes: Cholecystectomy (laparoscopic), Colonoscopy, Hysterectomy (vaginal with ant/post repair) - Alcohol/Substance Use Hx Alcohol Use: Yes (social/occasional) History of Substance Use: reports: None - Smoking History Smoking history: Former smoker Have you smoked in the past 12 months: No If you are a former smoker, when did you quit?: 1980s - Social History Usual Living Arrangement: With Spouse ADL: Independent Home Medications - Allergies Allergies/Adverse Reactions: Allergies Allergy/AdvReac Type Severity Reaction Status Date / Time Penicillins Allergy Rash Verified 09/29/18 12:29 morphine AdvReac Verified 10/04/18 19:11 - Home Medications Home Medications: Ambulatory Orders Atorvastatin Ca [Lipitor] 5 mg PO HS 02/23/17 Levothyroxine [Synthroid -] 100 mcg PO DAILY 02/23/17 [place] Carbonate [Eskalith -] 300 mg PO DAILY 02/23/17 Meclizine HCl 12.5 mg PO BID PRN 02/23/17 Rizatriptan Benzoate [Maxalt] 10 mg PO PRN PRN 02/23/17 Loratadine [Claritin] 10 mg PO DAILY 09/27/18 Calcium Carb, Citrate/Vit D3 [Citracal + D ER Tablet] 1 each PO BID 09/29/18 Glucosa [place] 2Kcl/Chondroitin [place] [Glucosamine & Chondroitin Cap] 2 each PO DAILY 09/29/18 Oxybutynin Chloride 5 mg PO DAILY 09/29/18 Sodium Chloride [Saline Nasal [place]] 45 ml NS PRN PRN 09/29/18 Family Disease History - Family Disease History Family Disease History: [place]: Sister (lymphoma at 70, alive at 75) Other Family History: multiple family members with hiatal hernia Review of Systems - Review of Systems Constitutional: reports: Weakness Eyes: reports: No Symptoms HENT: reports: No Symptoms Neck: reports: No Symptoms Cardiovascular: reports: No Symptoms Gastrointestinal: reports: No Symptoms Genitourinary: reports: No Symptoms Musculoskeletal: reports: No Symptoms Neurological: reports: No Symptoms Endocrine: reports: No Symptoms Physical Exam Vital Signs: Vital Signs Temperature 98.2 F 10/15/18 06:30 Pulse Rate 91 H 10/15/18 06:30 Respiratory Rate 18 10/15/18 06:30 Blood Pressure 162/82 10/15/18 06:30 O2 Sat by Pulse Oximetry (%) 98 10/14/18 21:00 Constitutional: Yes: No Distress Eyes: Yes: Conjunctiva Clear, EOM Intact HENT: Yes: Atraumatic, Normocephalic Neck: Yes: Supple, Trachea Midline Cardiovascular: Yes: Regular Rate and Rhythm Respiratory: Yes: Regular, CTA Bilaterally Gastrointestinal: Yes: Soft, Other (Colostomy in place) Musculoskeletal: Yes: WNL Extremities: Yes: WNL Edema: No Neurological: Yes: Alert Labs: CBC, BMP 10/15/18 06:20 10/15/18 06:20 Assessment/Plan AP: Hypothyroidism: TSH 1.37 on admission to 41.8 and 50.8 now Probably sec to malabsorption LT4 to be given at 5 AM, at least an hour before any food Sepsis due stercoral perforation with peritonitis s/p Sidra procedure 10/02 Hypernatremia due to DI from [place] New onset Afib with RVR Chronic diastolic dysfunction MONIKA, due to sepsis/hypovolumia, resolved AMS, suspected multifactorial toxic metabolic encephalopathy from sepsis/ hypernatremia/Delirium/ICU psychosis, superimposed on underlying psychiatric disorder Bipolar disorder
--- NOTE | 2018-10-15 11:12 | PN ---
Progress Note, Physician History of Present Illness: s/p Sidra's procedure for OR findings of stercoral perforation with peritonitis pt tried to get out of bed early this am and fell to her knees, weak, but did not sustain injury head CT was done and is negative she has been OOB with PT abx resumed when wbc slowly up again, down to normal today 9.4 pt seen and examined in bed she is resting comfortably, wakes easily, is still confused pain is controlled but uncomfortable with dressing change - better today tolerating diet and taking ensure with meals, eating only some of meals drinking fluids ad kleber but does seem to require some assistance with doing so colostomy functioning, bag empty/clean, recently changed per nurse, she pulled base off again this morning - Current Medication List Current Medications: Active Medications Acetaminophen (Tylenol -) 650 mg PO Q6H PRN PRN Reason: Pain Level 4 - 10 Last Admin: 10/14/18 15:40 Dose: 650 mg Apixaban (Eliquis -) 5 mg PO BID [facility] Last Admin: 10/15/18 09:52 Dose: 5 mg Diltiazem HCl (Cardizem Injection -) 10 mg IVPUSH Q4H PRN PRN Reason: TACHYCARDIA Hydrochlorothiazide (Hctz -) 25 mg PO DAILY [facility] Last Admin: 10/15/18 10:30 Dose: Not Given Meropenem 1 gm/ Dextrose 100 mls @ 200 mls/hr IVPB Q8H-IV [facility] Last Admin: 10/15/18 09:54 Dose: 200 mls/hr Levothyroxine Sodium (Synthroid -) 100 mcg PO DAILY@0700 [facility] Last Admin: 10/15/18 06:46 Dose: 100 mcg Metoprolol Tartrate (Lopressor -) 25 mg PO BID [facility] Last Admin: 10/15/18 09:53 Dose: 25 mg Potassium Phos/Sodium Phos (Phos-Nak Packet -) 1 packet PO DAILY [facility] Last Admin: 10/15/18 09:53 Dose: 1 packet Ranitidine HCl (Zantac -) 150 mg PO BID [facility] Last Admin: 10/15/18 09:53 Dose: 150 mg - Objective Vital Signs: Vital Signs Temperature 98.2 F 10/15/18 06:30 Pulse Rate 91 H 10/15/18 06:30 Respiratory Rate 18 10/15/18 06:30 Blood Pressure 162/82 10/15/18 06:30 O2 Sat by Pulse Oximetry (%) 98 10/14/18 21:00 Constitutional: Yes: Well Nourished, No Distress, Calm Eyes: Yes: Conjunctiva Clear, EOM Intact HENT: Yes: Atraumatic, Normocephalic Gastrointestinal: Yes: Soft, Other (colostomy p/p/p, appliance intact for now). No: Distention, Tenderness (incision less uncomfortable with dressing change today) Extremities: Yes: Other (resolving ecchymoses on bilateral medial arms from IV sites/punctures). No: Cool, Cyanosis Integumentary: Yes: Incision (midline with dressing). No: Jaundice, Rash, Skin Tear (skin appears dry and healing beneath edge of stoma appliance) Wound/Incision: Yes: [place] Intact (between wounds), Dressing Dry and Intact, Dressing Removed (and changed - single 2x2 gauze in each wound), Unapproximated (between cedrick; wounds clean, granulating, slowly healing up from bases). No : Draining (little yellow drainage on removed gauze), Reddened Neurological: Yes: Alert, Confusion, Unsteady Gait (needs assistance OOB) Labs: CBC, BMP 10/15/18 06:20 10/15/18 06:20 CMP Sodium 139 mmol/L (136-145) 10/15/18 06:20 Potassium 4.5 mmol/L (3.5-5.1) 10/15/18 06:20 Chloride 106 mmol/L (98-107) 10/15/18 06:20 Carbon Dioxide 28 mmol/L (21-32) 10/15/18 06:20 Anion Gap 5 MMOL/L (8-16) L 10/15/18 06:20 BUN 20 mg/dL (7-18) H 10/15/18 06:20 Creatinine 1.2 mg/dL (0.55-1.3) 10/15/18 06:20 Creat Clearance w eGFR 44.54 (>60) 10/15/18 06:20 Random Glucose 82 mg/dL (74-106) 10/15/18 06:20 Hemoglobin A1c % 5.0 % (4.2-6.3) 12/05/18 05:30 Calcium 8.6 mg/dL (8.5-10.1) 10/15/18 06:20 Phosphorus 3.2 mg/dL (2.5-4.9) 10/15/18 06:20 Magnesium 1.8 mg/dL (1.8-2.4) 10/15/18 06:20 Total Bilirubin 0.3 mg/dL (0.2-1) 10/15/18 06:20 AST 32 U/L (15-37) 10/15/18 06:20 ALT 38 U/L (13-61) 10/15/18 06:20 Alkaline Phosphatase 108 U/L (45-117) 10/15/18 06:20 Total Protein 5.8 g/dl (6.4-8.2) L 10/15/18 06:20 Albumin 1.9 g/dl (3.4-5.0) L 10/15/18 06:20 TSH 50.80 uIU/ml (0.358-3.74) H 10/15/18 06:20 Free T4 1.30 ng/dl (0.76-1.46) 10/15/18 06:20 wbc down to normal today Na, Cl normal BUN/Cr baseline TSH had been 1.37 on admission, 09/29 high yesterday and today endo consulted Microbiology 10/13/18 18:40 Urine Culture - Final Urine - Urine - Catheterized NO GROWTH OBTAINED 10/13/18 16:40 Blood Culture - Preliminary Blood - Peripheral Venous NO GROWTH OBTAINED AFTER 24 HOURS, INCUBATION TO CONTINUE FOR 4 DAYS. 10/13/18 16:45 Blood Culture - Preliminary Blood - Peripheral Venous NO GROWTH OBTAINED AFTER 24 HOURS, INCUBATION TO CONTINUE FOR 4 DAYS. 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 Aimee zhang functioning tolerating diet - encouraged to take in more protein, calories taking Ensure with meals ad kleber free water/liquid intake, no caffeine continue strict I/O's for UOP measurement pain meds - prn tylenol incisions clean, wound dressings changed continue daily wound care - 2x2 gauze into each site, covered by folded gauze, + /-abd and paper tape to secure ostomy base intact for now, TEMPLATE to be used with changes may need to get proper size convex appliance for ostomy PT seeing, pt will need rehab for wound care, colostomy care and physical therapy on discharge will also eventually need VNS arranged for home after rehab, and possibly evaluation for home care scheduler they have a very protective (per other family members) pit bull, which her assured me would be sent to his son's house, in order for VNS or other home care personnel to be able to come over I have serious doubts that she will be able to manage her colostomy alone, and am certain her will not be capable of assisting with wound or colostomy care. Discussed with CM/nursing staff Code(s): K63.1 - PERFORATION OF INTESTINE (NONTRAUMATIC) (2) Stercoral ulcer of large intestine Code(s): K63.3 - ULCER OF INTESTINE (3) Stercolith Code(s): K56.41 - FECAL IMPACTION (4) Constipation Code(s): K59.00 - CONSTIPATION, UNSPECIFIED Qualifiers: Constipation type: chronic idiopathic constipation Qualified Code(s): K59.04 - Chronic idiopathic constipation (5) Diabetes insipidus Assessment/Plan: nephrogenic DI per renal, following related to long-term lithium use alert but confused on thiazide ad kleber free water and clear liquids po monitor closely - she is somewhat independent with PO water intake but still requires assistance with drinking and meals need to maintain free intake of fluids Code(s): E23.2 - DIABETES INSIPIDUS (6) Paroxysmal atrial fibrillation Assessment/Plan: cardiology following rate and rhythm controlled on eliquis keep lytes normal ? if should be on telemetry? Code(s): I48.0 - PAROXYSMAL ATRIAL FIBRILLATION (7) Bipolar disorder Assessment/Plan: DI related to long-term lithium use it has been stopped abilify had been started, now stopped also per psych unclear if any alternative meds will be needed/appropriate for long-term use Code(s): F31.9 - BIPOLAR DISORDER, UNSPECIFIED Qualifiers: Active/Remission status: in remission of unspecified degree Qualified Code( s): F31.70 - Bipolar disorder, currently in remission, most recent episode unspecified (8) Hypertension Assessment/Plan: on po beta paige and HCTZ Code(s): I10 - ESSENTIAL (PRIMARY) HYPERTENSION Qualifiers: Hypertension type: essential hypertension Qualified Code(s): I10 - Essential (primary) hypertension (9) Hyperlipidemia Code(s): E78.5 - HYPERLIPIDEMIA, UNSPECIFIED Qualifiers: Hyperlipidemia type: unspecified Qualified Code(s): E78.5 - Hyperlipidemia , unspecified (10) Hypothyroidism Assessment/Plan: on po synthroid but TSH now high being seen by endocrine see above Code(s): E03.9 - HYPOTHYROIDISM, UNSPECIFIED Qualifiers: Hypothyroidism type: unspecified Qualified Code(s): E03.9 - Hypothyroidism , unspecified (11) Hiatal hernia without gangrene or obstruction Code(s): K44.9 - DIAPHRAGMATIC HERNIA WITHOUT OBSTRUCTION OR GANGRENE
[2018-10-15 14:31] VITALS: BMI 29.0
--- NOTE | 2018-10-15 18:14 | PN ---
Progress Note, Physician History of Present Illness: stable continues to be confused on abx wbc trending down - Current Medication List Current Medications: Active Medications Acetaminophen (Tylenol -) 650 mg PO Q6H PRN PRN Reason: Pain Level 4 - 10 Last Admin: 10/14/18 15:40 Dose: 650 mg Apixaban (Eliquis -) 5 mg PO BID [facility] Last Admin: 10/15/18 09:52 Dose: 5 mg Diltiazem HCl (Cardizem Injection -) 10 mg IVPUSH Q4H PRN PRN Reason: TACHYCARDIA Hydrochlorothiazide (Hctz -) 25 mg PO DAILY [facility] Last Admin: 10/15/18 10:30 Dose: Not Given Meropenem 1 gm/ Dextrose 100 mls @ 200 mls/hr IVPB Q8H-IV [facility] Last Admin: 10/15/18 17:11 Dose: 200 mls/hr Levothyroxine Sodium (Synthroid -) 100 mcg PO DAILY@0700 [facility] Metoprolol Tartrate (Lopressor -) 25 mg PO BID [facility] Last Admin: 10/15/18 09:53 Dose: 25 mg Potassium Phos/Sodium Phos (Phos-Nak Packet -) 1 packet PO DAILY [facility] Last Admin: 10/15/18 09:53 Dose: 1 packet Ranitidine HCl (Zantac -) 150 mg PO BID [facility] Last Admin: 10/15/18 09:53 Dose: 150 mg - Objective Vital Signs: Vital Signs Temperature 98.5 F 10/15/18 15:08 Pulse Rate 82 10/15/18 15:08 Respiratory Rate 18 10/15/18 15:08 Blood Pressure 99/56 L 10/15/18 15:08 O2 Sat by Pulse Oximetry (%) 97 10/15/18 09:00 Constitutional: Yes: No Distress, Calm Cardiovascular: Yes: Regular Rate and Rhythm Respiratory: Yes: Regular, CTA Bilaterally Gastrointestinal: Yes: Normal Bowel Sounds, Soft, Other (colostomy in place) Musculoskeletal: Yes: WNL Extremities: Yes: WNL Neurological: Yes: Alert, Confusion Labs: CBC, BMP 10/15/18 06:20 10/15/18 06:20 INR, PTT INR 1.32 (0.83-1.09) H 10/08/18 05:15 Assessment/Plan Assessment/Plan - Problems (1) Diverticulitis of large intestine with perforation without abscess or bleeding Code(s): K57.20 - DVTRCLI OF LG INT W PERFORATION AND ABSCESS W/O BLEEDING (2) Suprapubic pain Code(s): R10.2 - PELVIC AND PERINEAL PAIN (3) Constipation Code(s): K59.00 - CONSTIPATION, UNSPECIFIED Qualifiers: Constipation type: other constipation type Qualified Code(s): K59.09 - Other constipation (4) Paroxysmal atrial fibrillation Code(s): I48.0 - PAROXYSMAL ATRIAL FIBRILLATION (5) Bipolar disorder Code(s): F31.9 - BIPOLAR DISORDER, UNSPECIFIED Qualifiers: Active/Remission status: in remission of unspecified degree Qualified Code( s): F31.70 - Bipolar disorder, currently in remission, most recent episode unspecified (6) Hypertension Code(s): I10 - ESSENTIAL (PRIMARY) HYPERTENSION Qualifiers: Hypertension type: essential hypertension Qualified Code(s): I10 - Essential (primary) hypertension (7) Hyperlipidemia Code(s): E78.5 - HYPERLIPIDEMIA, UNSPECIFIED Qualifiers: Hyperlipidemia type: unspecified Qualified Code(s): E78.5 - Hyperlipidemia , unspecified (8) Hypothyroidism Code(s): E03.9 - HYPOTHYROIDISM, UNSPECIFIED Qualifiers: Hypothyroidism type: unspecified Qualified Code(s): E03.9 - Hypothyroidism , unspecified (9) Hiatal hernia without gangrene or obstruction Code(s): K44.9 - DIAPHRAGMATIC HERNIA WITHOUT OBSTRUCTION OR GANGRENE plan continue abx monitor wbc if remains stable will deescalate abx rest as per the team
[2018-10-15] MEDS: ACETAMINOPHEN 325 MG TABLET (FP) PO PRN (19:45)
[2018-10-16] MEDS: MEROPENEM 1 GM in DEXTROSE 5%-WATER 100 ML IVPB SCH ×2 (02:40→09:30)
[2018-10-16] MEDS: ACETAMINOPHEN 325 MG TABLET (FP) PO PRN (05:33)
[2018-10-16] MEDS: LEVOTHYROXINE NA 100 MCG TABLET (FP) PO SCH (06:50)
[2018-10-16 07:30] LABS: BASO % 1.1 % (0-2.0); EOS % 2.8 % (0-4.5); HEMATOCRIT 33.6 % (32.4-45.2); HEMOGLOBIN 10.7 GM/dL (10.7-15.3); LYMPH % 10.7 % (8-40); MCHC 31.7 g/dl (32.0-36.0); MEAN PLT VOLUME 9.8 fl (7.5-11.1); MONO % 6.2 % (3.8-10.2); NEUT % 79.2 % (42.8-82.8); PLATELET COUNT 492 K/MM3 (134-434); RDW 13.2 % (11.6-15.6); WHITE BLOOD COUNT 9.1 K/mm3 (4.0-10.0)
[2018-10-16 08:27] LABS: ANION GAP 8 MMOL/L (8-16); BLOOD UREA NITROGEN 20 mg/dL (7-18); CALCIUM 8.7 mg/dL (8.5-10.1); CHLORIDE 103 mmol/L (98-107); CO2 25 mmol/L (21-32); CREATININE 1.4 mg/dL (0.55-1.3); GLUCOSE,RANDOM 112 mg/dL (74-106); MAGNESIUM 1.7 mg/dL (1.8-2.4); PHOSPHOROUS 3.2 mg/dL (2.5-4.9); POTASSIUM 4.5 mmol/L (3.5-5.1); SODIUM 137 mmol/L (136-145)
[2018-10-16] MEDS ORDERED: MAGNESIUM SULF 50% (8.12 MEQ/2 ML-1 GM VIAL) IVPB ONE (08:40)
--- NOTE | 2018-10-16 08:41 | PN ---
Physical Exam: SUBJECTIVE: Patient seen and examined this AM. She states that she is feeling well with no complaints of abdominal pain. Denies any fevers or chills. Pt amenable to SNF placement as she will not be able to manage her colostomy bag on her own at home. OBJECTIVE: Vital Signs Period Temp Pulse Resp BP Sys/Choi Pulse Ox Last 24 Hr 98 F-99.5 F 77-88 18-20 97-116/56-72 97-97 GENERAL: A&O X 1, pt knows she is in the hospital but unsure of name, Does not know the date. no acute distress HEAD: Normocephalic, atraumatic. EYES: PERRL, no scleral icterus EARS, NOSE, THROAT: oropharynx clear without exudates. Moist mucous membranes. NECK: supple without lymphadenopathy LUNGS: CTA b/l, no crackles or wheezes HEART: Regular rate and rhythm, normal S1 and S2 without murmur ABDOMEN: Soft, nontender to palpation, normoactive bowel sounds, colostomy bag in tact without erythema or drainage EXTREMITIES: 2+ pulses, warm, well-perfused. No peripheral edema. NEUROLOGICAL: Cranial nerves II-XII grossly intact. Normal speech. PSYCHIATRIC: Cooperative. Good eye contact. Appropriate mood and affect. Laboratory Results - last 24 hr 10/15/18 10/15/18 10/16/18 06:20 06:20 07:00 WBC 9.1 RBC 4.10 Hgb 10.7 Hct 33.6 MCV 82.0 MCH 26.0 MCHC 31.7 L RDW 13.2 Plt Count 492 H D MPV 9.8 Absolute Neuts (auto) 7.2 Neutrophils % 79.2 Lymphocytes % 10.7 Monocytes % 6.2 Eosinophils % 2.8 D Basophils % 1.1 Nucleated RBC % 0 Sodium Potassium Chloride Carbon Dioxide Anion Gap BUN Creatinine Creat Clearance w eGFR Random Glucose Calcium Phosphorus Magnesium TSH 50.80 H Free T3 1.0 L Total T3 65.00 L 10/16/18 07:00 WBC RBC Hgb Hct MCV MCH MCHC RDW Plt Count MPV Absolute Neuts (auto) Neutrophils % Lymphocytes % Monocytes % Eosinophils % Basophils % Nucleated RBC % Sodium 137 Potassium 4.5 Chloride 103 Carbon Dioxide 25 Anion Gap 8 BUN 20 H Creatinine 1.4 H Creat Clearance w eGFR 37.28 Random Glucose 112 H Calcium 8.7 Phosphorus 3.2 Magnesium 1.7 L TSH Free T3 Total T3 Active Medications Generic Name Dose Route Start Last Admin Trade Name Freq PRN Reason Stop Dose Admin Acetaminophen 650 mg 10/12/18 14:04 10/16/18 05:33 Tylenol - PO 650 mg Q6H PRN Administration Pain Level 4 - 10 Apixaban 5 mg 10/10/18 22:00 10/15/18 21:25 Eliquis - PO 5 mg BID [facility] Administration Diltiazem HCl 10 mg 10/10/18 15:27 Cardizem Injection - IVPUSH Q4H PRN [facility] Hydrochlorothiazide 25 mg 10/14/18 10:00 10/15/18 10:30 Hctz - PO Not Given DAILY [facility] Meropenem 1 gm/ Dextrose 100 mls @ 200 mls/hr 10/13/18 14:15 10/16/18 02:40 IVPB 200 mls/hr Q8H-IV [facility] Administration Levothyroxine Sodium 100 mcg 10/15/18 17:44 10/16/18 06:50 Synthroid - PO 100 mcg DAILY@0700 [facility] Administration Magnesium Sulfate 2 gm 10/16/18 08:40 Magnesium Sulfate IVPB 10/16/18 08:41 ONCE ONE Metoprolol Tartrate 25 mg 10/13/18 22:00 10/15/18 21:25 Lopressor - PO Not Given BID [facility] Potassium Phos/Sodium Phos 1 packet 10/10/18 10:00 10/15/18 09:53 Phos-Nak Packet - PO 1 packet DAILY [facility] Administration Ranitidine HCl 150 mg 10/10/18 22:00 10/15/18 21:25 Zantac - PO 150 mg BID [facility] Administration ASSESSMENT/PLAN: 67 y/o female with PMH of Cholecystitis, Hypothyroidism and Bipolar Disorder admitted for colonic perforation. She developed sepsis secondary to the perforation and peritonitis and is s/p Sidra's procedure POD 14. Sepsis Secondary to Stercoral Perforation and Peritonitis -S/P Sidra's procedure POD 14 -ID Consult appreciated -Received Vanco/Meropenem - d/c 10/11 -Pt spiked temp and WBC elevated so Meropenem restarted on 10/13 -WBC resolved -Afebrile -ID Consult appreciated, d/c Abx -Surgery consult appreciated -Pt with colostomy that is in tact and clean without erythema, abdominal pain resolved -Pt will need SNF for assistance with colostomy care -can likely d/c tomorrow pending improvement of renal fxn Hypothyroidism -TSH 1.37 on admission -Repeat TSH now 42 and 51 the last two days, could be secondary to acute process -Free T4 1.4, Free T3 and Total T3 pending -Endocrinology Consult appreciated, thinks secondary to malabsorption -Synthroid 100 mcg PO AM Paroxysmal A-fib, new onset -New onset on this admission, likely induced by sepsis/demand -Currently in Normal Sinus -Eliquis 5 mg PO BID -Lopressor 25 mg PO BID for rate control -Cardiology Consult appreciated Acute Metabolic Encephalopathy vs Chronic Psychiatric Disorder -Bipolar Disorder on [place], admitted with hypernatremia 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 -[place] held as per psychiatry -Pt mental status is improving, AOX2 this morning -Pt close to baseline -Will need psych f/u as outpatient HyperNatremia - resolved -as above -2/2 DI brought on by lithium use -d/c HCTZ MONIKA -Blood pressures low, possibly renal hypoperfusion -Hold HCTZ Protein Calorie Malnutrition -Likely secondary to decreased PO intake -Encourage PO Intake -Ensure with every meal DVT Prophylaxis -Eliquis 5 mg PO BID [facility] -Fluids: None -Electrolytes: No electrolyte abnormalities, BMP in AM -Nutrition: Na Controlled Diet with Ensure with every meal Disposition Med/Surg, SNF placement pending renal fxn improvement Visit type - Emergency Visit Emergency Visit: Yes ED Registration Date: 09/28/18 Care time: The patient presented to the Emergency Department on the above date and was hospitalized for further evaluation of their emergent condition. - New Patient This patient is new to me today: No - Critical Care Critical Care patient: No
[2018-10-16] MEDS ORDERED: SODIUM CHLORIDE 500 ML IV STA (08:44)
[2018-10-16] MEDS ORDERED: PT OWN MED DRAWER 7, Y5N ONE (09:16)
[2018-10-16] MEDS: APIXABAN 5 MG TABLET PO SCH ×3 (09:29→23:09)
[2018-10-16] MEDS: NAPH,MB-DB/K PH,MBDB POWDER PACKET PO SCH (09:30)
[2018-10-16] MEDS: METOPROLOL TARTRATE 25 MG TABLET (FP) PO SCH ×2 (09:30→23:10)
[2018-10-16] MEDS: HYDROCHLOROTHIAZIDE 25 MG TABLET (FP) PO SCH ×2 (09:30)
[2018-10-16] MEDS: RANITIDINE HCL 150 MG TABLET (FP) PO SCH ×2 (09:30→23:10)
--- NOTE | 2018-10-16 12:54 | PN ---
Progress Note (short form) - Note Progress Note: Renal follow up for MONIKA Pt seen and examined at the bedside awake and alert no acute complaints off HCTZ Vital Signs Temperature 97.9 F 10/16/18 09:24 Pulse Rate 92 H 10/16/18 09:24 Respiratory Rate 18 10/16/18 09:24 Blood Pressure 103/62 10/16/18 09:24 O2 Sat by Pulse Oximetry (%) 97 10/16/18 09:00 Intake & Output 10/13/18 10/14/18 10/15/18 10/16/18 23:59 23:59 23:59 23:59 Intake Total 2140 1050 895 500 Output Total 800 450 Balance 1340 1050 445 500 NAD awake and alert neck supple No LE edema CBC, BMP 10/16/18 07:00 10/16/18 07:00 Laboratory Tests 10/16/18 07:00 Calcium 8.7 Phosphorus 3.2 Magnesium 1.7 L Current Medications Acetaminophen (Tylenol -) 650 mg PO Q6H PRN PRN Reason: Pain Level 4 - 10 Last Admin: 10/16/18 05:33 Dose: 650 mg Apixaban (Eliquis -) 5 mg PO BID [facility] Last Admin: 10/16/18 10:21 Dose: 5 mg Diltiazem HCl (Cardizem Injection -) 10 mg IVPUSH Q4H PRN PRN Reason: TACHYCARDIA Meropenem 1 gm/ Dextrose 100 mls @ 200 mls/hr IVPB Q8H-IV [facility] Last Admin: 10/16/18 09:30 Dose: 200 mls/hr Levothyroxine Sodium (Synthroid -) 100 mcg PO DAILY@0700 [facility] Last Admin: 10/16/18 06:50 Dose: 100 mcg Metoprolol Tartrate (Lopressor -) 25 mg PO BID [facility] Last Admin: 10/16/18 09:30 Dose: 25 mg Potassium Phos/Sodium Phos (Phos-Nak Packet -) 1 packet PO DAILY [facility] Last Admin: 10/16/18 09:30 Dose: 1 packet Ranitidine HCl (Zantac -) 150 mg PO BID [facility] Last Admin: 10/16/18 09:30 Dose: 150 mg 67 year old woman with hx of bipolar disorder, cholecystitis who presented with constipation and lower abd pain and found to have acute diverticulosis and new Afib with subsequent development of ileus with MONIKA. 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
[2018-10-16 14:02] LABS: ANION GAP 9 MMOL/L (8-16); BLOOD UREA NITROGEN 24 mg/dL (7-18); CALCIUM 8.5 mg/dL (8.5-10.1); CHLORIDE 101 mmol/L (98-107); CO2 26 mmol/L (21-32); CREATININE 1.4 mg/dL (0.55-1.3); GLUCOSE,RANDOM 113 mg/dL (74-106); POTASSIUM 4.8 mmol/L (3.5-5.1); SODIUM 136 mmol/L (136-145)
--- NOTE | 2018-10-16 14:56 | PN ---
Progress Note, Physician History of Present Illness: stable mental status i think is nearly back to baseline - Current Medication List Current Medications: Active Medications Acetaminophen (Tylenol -) 650 mg PO Q6H PRN PRN Reason: Pain Level 4 - 10 Last Admin: 10/16/18 05:33 Dose: 650 mg Apixaban (Eliquis -) 5 mg PO BID [facility] Last Admin: 10/16/18 10:21 Dose: 5 mg Diltiazem HCl (Cardizem Injection -) 10 mg IVPUSH Q4H PRN PRN Reason: TACHYCARDIA Levothyroxine Sodium (Synthroid -) 100 mcg PO DAILY@0700 [facility] Last Admin: 10/16/18 06:50 Dose: 100 mcg Metoprolol Tartrate (Lopressor -) 25 mg PO BID [facility] Last Admin: 10/16/18 09:30 Dose: 25 mg Potassium Phos/Sodium Phos (Phos-Nak Packet -) 1 packet PO DAILY [facility] Last Admin: 10/16/18 09:30 Dose: 1 packet Ranitidine HCl (Zantac -) 150 mg PO BID [facility] Last Admin: 10/16/18 09:30 Dose: 150 mg - Objective Vital Signs: Vital Signs Temperature 97.9 F 10/16/18 09:24 Pulse Rate 103 H 10/16/18 10:00 Respiratory Rate 19 10/16/18 10:00 Blood Pressure 93/56 L 10/16/18 10:00 O2 Sat by Pulse Oximetry (%) 97 10/16/18 09:00 Constitutional: Yes: No Distress, Calm Cardiovascular: Yes: Regular Rate and Rhythm Respiratory: Yes: Regular, CTA Bilaterally Gastrointestinal: Yes: Normal Bowel Sounds, Soft, Other (colostomy in place) Musculoskeletal: Yes: WNL Extremities: Yes: WNL Neurological: Yes: Alert, Oriented Psychiatric: Yes: Alert, Oriented Labs: CBC, BMP 10/16/18 07:00 10/16/18 12:50 INR, PTT INR 1.32 (0.83-1.09) H 10/08/18 05:15 Assessment/Plan - Problems (1) Diverticulitis of large intestine with perforation without abscess or bleeding Code(s): K57.20 - DVTRCLI OF LG INT W PERFORATION AND ABSCESS W/O BLEEDING (2) Suprapubic pain Code(s): R10.2 - PELVIC AND PERINEAL PAIN (3) Constipation Code(s): K59.00 - CONSTIPATION, UNSPECIFIED Qualifiers: Constipation type: other constipation type Qualified Code(s): K59.09 - Other constipation (4) Paroxysmal atrial fibrillation Code(s): I48.0 - PAROXYSMAL ATRIAL FIBRILLATION (5) Bipolar disorder Code(s): F31.9 - BIPOLAR DISORDER, UNSPECIFIED Qualifiers: Active/Remission status: in remission of unspecified degree Qualified Code( s): F31.70 - Bipolar disorder, currently in remission, most recent episode unspecified (6) Hypertension Code(s): I10 - ESSENTIAL (PRIMARY) HYPERTENSION Qualifiers: Hypertension type: essential hypertension Qualified Code(s): I10 - Essential (primary) hypertension (7) Hyperlipidemia Code(s): E78.5 - HYPERLIPIDEMIA, UNSPECIFIED Qualifiers: Hyperlipidemia type: unspecified Qualified Code(s): E78.5 - Hyperlipidemia , unspecified (8) Hypothyroidism Code(s): E03.9 - HYPOTHYROIDISM, UNSPECIFIED Qualifiers: Hypothyroidism type: unspecified Qualified Code(s): E03.9 - Hypothyroidism , unspecified (9) Hiatal hernia without gangrene or obstruction Code(s): K44.9 - DIAPHRAGMATIC HERNIA WITHOUT OBSTRUCTION OR GANGRENE plan will stop abx rest continue current mgmt nutrition patient doing well
[2018-10-16] MEDS ORDERED: SODIUM CHLORIDE 1,000 ML IV SCH (15:45)
--- NOTE | 2018-10-16 15:50 | PN ---
Teaching Attending Note Name of Resident: Thomas Cloud ATTENDING PHYSICIAN STATEMENT I saw and evaluated the patient. I reviewed the resident's note and discussed the case with the resident. I agree with the resident's findings and plan as documented with exceptions below. SUBJECTIVE: Patient seen and examined. Pleasant, oriented to self, time, no complaints. Occasional tangential conversations but overall co-operative and pleasant. OBJECTIVE: Vital Signs Period Temp Pulse Resp BP Sys/Choi Pulse Ox Last 24 Hr 97.9 F-99.2 F 80-103 18-19 93-116/56-72 97-97 Intake & Output 10/13/18 10/14/18 10/15/18 10/16/18 23:59 23:59 23:59 23:59 Intake Total 2140 1050 895 700 Output Total 800 450 Balance 1340 1050 445 700 General: sitting in bed in no acute distress Chest: no rales or wheezing Abdomen:soft, NT, surgical dressing clean, left colostomy with formed brown stool, no voluntary or involuntary guarding or rigidity, positive bowel sounds Extremities: no edema Home Medications Medication Instructions Recorded Atorvastatin Ca [Lipitor] 5 mg PO HS 02/23/17 Levothyroxine [Synthroid -] 100 mcg PO DAILY 02/23/17 [place] Carbonate [Eskalith -] 300 mg PO DAILY 02/23/17 Meclizine HCl 12.5 mg PO BID PRN 02/23/17 Rizatriptan Benzoate [Maxalt] 10 mg PO PRN PRN 02/23/17 Loratadine [Claritin] 10 mg PO DAILY 09/27/18 Calcium Carb, Citrate/Vit D3 1 each PO BID 09/29/18 [Citracal + D ER Tablet] Glucosa [place]ixeira 2Kcl/Chondroitin [place] 2 each PO DAILY 09/29/18 [Glucosamine & Chondroitin Cap] Oxybutynin Chloride 5 mg PO DAILY 09/29/18 Sodium Chloride [Saline Nasal 45 ml NS PRN PRN 09/29/18 [place]] Active Medications Acetaminophen (Tylenol -) 650 mg PO Q6H PRN PRN Reason: Pain Level 4 - 10 Last Admin: 10/16/18 05:33 Dose: 650 mg Apixaban (Eliquis -) 5 mg PO BID [facility] Last Admin: 10/16/18 10:21 Dose: 5 mg Diltiazem HCl (Cardizem Injection -) 10 mg IVPUSH Q4H PRN PRN Reason: TACHYCARDIA Sodium Chloride (Normal Saline -) 1,000 mls @ 75 mls/hr IV ASDIR [facility] Levothyroxine Sodium (Synthroid -) 100 mcg PO DAILY@0700 [facility] Last Admin: 10/16/18 06:50 Dose: 100 mcg Metoprolol Tartrate (Lopressor -) 25 mg PO BID [facility] Last Admin: 10/16/18 09:30 Dose: 25 mg Potassium Phos/Sodium Phos (Phos-Nak Packet -) 1 packet PO DAILY [facility] Last Admin: 10/16/18 09:30 Dose: 1 packet Ranitidine HCl (Zantac -) 150 mg PO BID [facility] Last Admin: 10/16/18 09:30 Dose: 150 mg Laboratory Results - last 24 hr 10/15/18 10/16/18 10/16/18 06:20 07:00 07:00 WBC 9.1 RBC 4.10 Hgb 10.7 Hct 33.6 MCV 82.0 MCH 26.0 MCHC 31.7 L RDW 13.2 Plt Count 492 H D MPV 9.8 Absolute Neuts (auto) 7.2 Neutrophils % 79.2 Lymphocytes % 10.7 Monocytes % 6.2 Eosinophils % 2.8 D Basophils % 1.1 Nucleated RBC % 0 Sodium 137 Potassium 4.5 Chloride 103 Carbon Dioxide 25 Anion Gap 8 BUN 20 H Creatinine 1.4 H Creat Clearance w eGFR 37.28 Random Glucose 112 H Calcium 8.7 Phosphorus 3.2 Magnesium 1.7 L Free T3 1.0 L Total T3 65.00 L 10/16/18 12:50 WBC RBC Hgb Hct MCV MCH MCHC RDW Plt Count MPV Absolute Neuts (auto) Neutrophils % Lymphocytes % Monocytes % Eosinophils % Basophils % Nucleated RBC % Sodium 136 Potassium 4.8 Chloride 101 Carbon Dioxide 26 Anion Gap 9 BUN 24 H Creatinine 1.4 H Creat Clearance w eGFR 37.28 Random Glucose 113 H Calcium 8.5 Phosphorus Magnesium Free T3 Total T3 ASSESSMENT AND PLAN: 67 year old female with Bipolar Disorder, Hypothyroidism, presented with abdominal pain and developed sepsis secondary to Stercoral perforation and Peritonitis, currently s/p Sidra's, also with New onset Afib with RVR, hypernatremia and AMS. -MONIKA, recurrent, suspect from mild hypovolumia from unreliable oral intake -Sepsis due stercoral perforation with peritonitis s/p Sidra procedure 10/02 ( Sigmoidectomy with colostomy) POD #13, peritoneal culture positive for prevotella -Hypernatremia due to DI from [place] -New onset Afib with RVR -Chronic diastolic dysfunction -Hypokalemia -AMS, suspected multifactorial toxic metabolic encephalopathy from sepsis/ hypernatremia/Delirium/ICU psychosis, superimposed on underlying psychiatric disorder -Bipolar disorder -Hypothyroidism -HTN -Protein Calorie Malnutrition Plan: WBC normalized. s/p Meropenem/Vanco (D/dino 10/11). Meropenem resumed 10/13 given leucocytosis/ low grade temp. WBC normalized. ID input noted. Antibiotics d/dino. Repeat cultures neg so far. Tolerating diet, colostomy care. Na improved with D5W/HYCTZ. IVF d/dino 10/11. Recurrent MONIKA,Hold HCTZ. Discussed with Dr. Zarate, gentle IVF overnight. r/o retention, low suspicion. Cardiology input noted, 2D echo reviewed. Lopressor/Eliquis. Psychiatry input noted. Off Li. Trial with zabrina , d/dino 10/13. Repeat TSH 41.8. T4 normal. Repeat TSH noted. Endocrine input noted. Dispo anticipate SNF in 24 hours if renal function stable and no new concerns. DVTPPX eliquis GIPPX ranitidine. Plan discussed with patient, social work, all questions answered.
--- NOTE | 2018-10-16 16:37 | PN ---
Progress Note (short form) - Note Progress Note: Denoies any complaints Vital Signs Period Temp Pulse Resp BP Sys/Choi Pulse Ox Last 24 Hr 97.9 F-99.2 F 80-103 18-19 93-116/56-72 97-97 PE: Awake, alert Neck: Supple, No JVD HEENT: EOMI Lungs: CTA CVS: S1S2 Abd: Benign Ext: No edema CMP Sodium 136 mmol/L (136-145) 10/16/18 12:50 Potassium 4.8 mmol/L (3.5-5.1) 10/16/18 12:50 Chloride 101 mmol/L (98-107) 10/16/18 12:50 Carbon Dioxide 26 mmol/L (21-32) 10/16/18 12:50 Anion Gap 9 MMOL/L (8-16) 10/16/18 12:50 BUN 24 mg/dL (7-18) H 10/16/18 12:50 Creatinine 1.4 mg/dL (0.55-1.3) H 10/16/18 12:50 Creat Clearance w eGFR 37.28 (>60) 10/16/18 12:50 POC Glucometer 135.13203 UNITS (80-120) 10/06/18 13:08 Random Glucose 113 mg/dL (74-106) H 10/16/18 12:50 Hemoglobin A1c % 5.0 % (4.2-6.3) 10/02/18 05:30 Serum Osmolality 337 mosm/kg (278-305) H 10/06/18 19:05 Lactic Acid 1.3 mmol/L (0.4-2.0) 10/01/18 21:30 Calcium 8.5 mg/dL (8.5-10.1) 10/16/18 12:50 Phosphorus 3.2 mg/dL (2.5-4.9) 10/16/18 07:00 Magnesium 1.7 mg/dL (1.8-2.4) L 10/16/18 07:00 Total Bilirubin 0.3 mg/dL (0.2-1) 10/15/18 06:20 Direct Bilirubin 0.1 mg/dL (0.0-0.2) 10/02/18 05:30 AST 32 U/L (15-37) 10/15/18 06:20 ALT 38 U/L (13-61) 10/15/18 06:20 Alkaline Phosphatase 108 U/L (45-117) 10/15/18 06:20 Creatine Kinase 57 IU/L (26-192) 09/29/18 15:15 Troponin I < 0.02 ng/ml (0.00-0.05) 09/29/18 15:15 B-Natriuretic Peptide 6110.2 pg/ml (5-125) H 10/01/18 21:30 Total Protein 5.8 g/dl (6.4-8.2) L 10/15/18 06:20 Albumin 1.9 g/dl (3.4-5.0) L 10/15/18 06:20 Lipase 325 U/L (73-393) 09/27/18 16:37 TSH 50.80 uIU/ml (0.358-3.74) H 10/15/18 06:20 Free T4 1.30 ng/dl (0.76-1.46) 10/15/18 06:20 Free T3 1.0 pg/ml (2.0-4.4) L 10/15/18 06:20 Total T3 65.00 ng/dl (71-180) L 10/15/18 06:20 Current Medications Generic Name Dose Route Start Last Admin Trade Name Freq PRN Reason Stop Dose Admin Acetaminophen 650 mg 10/12/18 14:04 10/16/18 05:33 Tylenol - PO 650 mg Q6H PRN Administration Pain Level 4 - 10 Apixaban 5 mg 10/10/18 22:00 10/16/18 10:21 Eliquis - PO 5 mg BID [facility] Administration Diltiazem HCl 10 mg 10/10/18 15:27 Cardizem Injection - IVPUSH Q4H PRN TACHYCARDIA Sodium Chloride 1,000 mls @ 75 mls/hr 10/16/18 15:45 Normal Saline - IV ASDIR [facility] Levothyroxine Sodium 100 mcg 10/15/18 17:44 10/16/18 06:50 Synthroid - PO 100 mcg DAILY@0700 [facility] Administration Metoprolol Tartrate 25 mg 10/13/18 22:00 10/16/18 09:30 Lopressor - PO 25 mg BID [facility] Administration Potassium Phos/Sodium Phos 1 packet 10/10/18 10:00 10/16/18 09:30 Phos-Nak Packet - PO 1 packet DAILY [facility] Administration Ranitidine HCl 150 mg 10/10/18 22:00 10/16/18 09:30 Zantac - PO 150 mg BID [facility] Administration AP: Hypothyroidism: TSH 1.37 on admission to 41.8 and 50.8 now Probably sec to malabsorption LT4 to be given at 5 AM, at least an hour before any food. Was given after 6 today Sepsis due stercoral perforation with peritonitis s/p Sidra procedure 10/02 Hypernatremia due to DI from [place] New onset Afib with RVR Chronic diastolic dysfunction MONIKA, due to sepsis/hypovolumia, resolved AMS, suspected multifactorial toxic metabolic encephalopathy from sepsis/ hypernatremia/Delirium/ICU psychosis, superimposed on underlying psychiatric disorder Bipolar disorder
--- NOTE | 2018-10-16 17:28 | PN ---
Progress Note, Physician History of Present Illness: POD#14 sigmoidectomy with colostomy (Sidra's procedure) for sigmoid stercoral perforation with peritonitis. Remains in NSR. Tolerating regular diet , hemodynamics stable. - Current Medication List Current Medications: Active Medications Acetaminophen (Tylenol -) 650 mg PO Q6H PRN PRN Reason: Pain Level 4 - 10 Last Admin: 10/16/18 05:33 Dose: 650 mg Apixaban (Eliquis -) 5 mg PO BID [facility] Last Admin: 10/16/18 10:21 Dose: 5 mg Diltiazem HCl (Cardizem Injection -) 10 mg IVPUSH Q4H PRN PRN Reason: TACHYCARDIA Sodium Chloride (Normal Saline -) 1,000 mls @ 75 mls/hr IV ASDIR [facility] Levothyroxine Sodium (Synthroid -) 100 mcg PO DAILY@0700 [facility] Last Admin: 10/16/18 06:50 Dose: 100 mcg Metoprolol Tartrate (Lopressor -) 25 mg PO BID [facility] Last Admin: 10/16/18 09:30 Dose: 25 mg Potassium Phos/Sodium Phos (Phos-Nak Packet -) 1 packet PO DAILY [facility] Last Admin: 10/16/18 09:30 Dose: 1 packet Ranitidine HCl (Zantac -) 150 mg PO BID [facility] Last Admin: 10/16/18 09:30 Dose: 150 mg - Objective Vital Signs: Vital Signs Temperature 99.2 F 10/16/18 14:21 Pulse Rate 82 10/16/18 14:21 Respiratory Rate 18 10/16/18 14:21 Blood Pressure 105/60 10/16/18 14:21 O2 Sat by Pulse Oximetry (%) 97 10/16/18 09:00 Constitutional: Yes: No Distress, Calm, Thin Neck: Yes: Supple Cardiovascular: Yes: Regular Rate and Rhythm Respiratory: Yes: Regular, CTA Bilaterally Gastrointestinal: Yes: Normal Bowel Sounds, Soft, Other (colostomy intact) Edema: No Labs: CBC, BMP 10/16/18 07:00 10/16/18 12:50 INR, PTT INR 1.32 (0.83-1.09) H 10/08/18 05:15 - ....Imaging Cat Scan: Report Reviewed (HCT w/o acute changes) Problem List - Problems (1) Diverticulitis of large intestine with perforation without abscess or bleeding Code(s): K57.20 - DVTRCLI OF LG INT W PERFORATION AND ABSCESS W/O BLEEDING (2) Hyperlipidemia Code(s): E78.5 - HYPERLIPIDEMIA, UNSPECIFIED Qualifiers: Hyperlipidemia type: unspecified Qualified Code(s): E78.5 - Hyperlipidemia , unspecified (3) Hypertension Code(s): I10 - ESSENTIAL (PRIMARY) HYPERTENSION Qualifiers: Hypertension type: essential hypertension Qualified Code(s): I10 - Essential (primary) hypertension (4) Hypothyroidism Code(s): E03.9 - HYPOTHYROIDISM, UNSPECIFIED Qualifiers: Hypothyroidism type: unspecified Qualified Code(s): E03.9 - Hypothyroidism , unspecified (5) Paroxysmal atrial fibrillation Code(s): I48.0 - PAROXYSMAL ATRIAL FIBRILLATION (6) History of open sigmoidectomy Code(s): Z98.890 - OTHER SPECIFIED POSTPROCEDURAL STATES; Z90.49 - ACQUIRED ABSENCE OF OTHER SPECIFIED PARTS OF DIGESTIVE TRACT Assessment/Plan 09/30/2018 Echo: Normal LV size and fxn LVEF 60-65%, mildly impaired LV compliance, normal RV fxn, normal atrial sizes, mild TR, trace-mild MR 1. POD#14 sigmoidectomy with colostomy (Sidra's procedure) for sigmoid stercoral perforation with peritonitis 2. Paroxysmal atrial fibrillation [id number] score of 3 currently on Eliquis 3. Diastolic LV dysfunction with clinical class 0 NYHA classification LV failure 4. Hypertension 5. Hypothyroidism 6. Bipolar disorder, paranoid behavior 7. Acute on CKD due to renal hypoperfusion improved 8. 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 Continue Eliquis 5 bid 2. Continue Lopressor 25 bid, recheck thyroid panel 3. Continue IV Cardizem as needed for rate control 4. Off antibiotic course per ID 5. Ambulate as tolerated
--- NOTE | 2018-10-16 19:45 | PN ---
Progress Note, Physician History of Present Illness: s/p Sidra's procedure for OR findings of stercoral perforation with peritonitis abx resumed when wbc slowly up again, has been back to normal pt seen and examined in bed she is alert, responsive and much less confused today remembers me and our conversation from before surgery regarding why she needs the bag for now she still seems a little confused, talking about an apartment near the hospital , but overall seems much improved in mental status she has been OOB and walked with PT pain is controlled, but she is briefly uncomfortable with dressing change tolerating diet and taking ensure with meals, eating "most of my hot meals" now , improved drinking fluids ad kleber, needs some assistance getting drinks from tray, but doing well colostomy functioning, bag leaking medially and soiling midline dressing, soft brown stool - Current Medication List Current Medications: Active Medications Acetaminophen (Tylenol -) 650 mg PO Q6H PRN PRN Reason: Pain Level 4 - 10 Last Admin: 10/16/18 05:33 Dose: 650 mg Apixaban (Eliquis -) 5 mg PO BID [facility] Last Admin: 10/16/18 10:21 Dose: 5 mg Diltiazem HCl (Cardizem Injection -) 10 mg IVPUSH Q4H PRN PRN Reason: TACHYCARDIA Sodium Chloride (Normal Saline -) 1,000 mls @ 75 mls/hr IV ASDIR [facility] Last Admin: 10/16/18 16:31 Dose: 75 mls/hr Levothyroxine Sodium (Synthroid -) 100 mcg PO DAILY@0700 [facility] Last Admin: 10/16/18 06:50 Dose: 100 mcg Metoprolol Tartrate (Lopressor -) 25 mg PO BID [facility] Last Admin: 10/16/18 09:30 Dose: 25 mg Potassium Phos/Sodium Phos (Phos-Nak Packet -) 1 packet PO DAILY [facility] Last Admin: 10/16/18 09:30 Dose: 1 packet Ranitidine HCl (Zantac -) 150 mg PO BID [facility] Last Admin: 10/16/18 09:30 Dose: 150 mg - Objective Vital Signs: Vital Signs Temperature 99.2 F 10/16/18 14:21 Pulse Rate 82 10/16/18 14:21 Respiratory Rate 18 10/16/18 14:21 Blood Pressure 105/60 12/19/18 14:21 O2 Sat by Pulse Oximetry (%) 97 10/16/18 09:00 Constitutional: Yes: Well Nourished, No Distress, Calm Eyes: Yes: Conjunctiva Clear, EOM Intact HENT: Yes: Atraumatic, Normocephalic Gastrointestinal: Yes: Normal Bowel Sounds, Soft, Other (colostomy p/p/p soft mushy dark brown stool - base leaking medially - changed and replaced with skin prep over peristomal skin (denuded skin has healed), 57mm appliance cut with template at bedside). No: Distention, Tenderness Extremities: No: Cool, Cyanosis Integumentary: Yes: Incision (midline with dressing). No: Jaundice, Rash, Skin Tear Wound/Incision: Yes: [place] Intact (between wounds), Dressing Dry and Intact ( soiled medially just now from ostomy leakage), Dressing Removed (and changed - saline-damp 2x2 gauze placed in each wound, covered with folded gauze, folded ABD and tape), Unapproximated (between anita - wounds clean, granulating, pink ). 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 following much less confused today - improved memory and conversation off lithium and abilify TSH high, ?malabsorption, ?timing of med - endocrine following colostomy functioning tolerating diet - taking Ensure with meals eating more and better ad kleber free water/liquid intake, no caffeine continue strict I/O's for UOP measurement pain meds - prn tylenol incisions clean, wound dressings changed continue daily wound care - 2x2 gauze into each site, covered by folded gauze, + /-abd and paper tape to secure ostomy base replaced for leaking, TEMPLATE at bedside to be used with ALL changes may need to get proper size convex appliance for ostomy PT seeing, pt reports walking with them she will need rehab for wound care, colostomy care and physical therapy on discharge will also eventually need VNS arranged for home after rehab, and possibly evaluation for full-time in home tutor they have a very protective (per other family members) pit bull, which her assured me would be sent to his son's house, in order for VNS or other home care personnel to be able to come over I have serious doubts that she will be able to manage her colostomy alone, and am certain her will not be capable of assisting with wound or colostomy care. Code(s): K63.1 - PERFORATION OF INTESTINE (NONTRAUMATIC) (2) Stercoral ulcer of large intestine Code(s): K63.3 - ULCER OF INTESTINE (3) Stercolith Code(s): K56.41 - FECAL IMPACTION (4) Constipation Code(s): K59.00 - CONSTIPATION, UNSPECIFIED Qualifiers: Constipation type: chronic idiopathic constipation Qualified Code(s): K59.04 - Chronic idiopathic constipation (5) Diabetes insipidus Assessment/Plan: nephrogenic DI per renal, following related to long-term lithium use alert and less confused on thiazide ad kleber free water and clear liquids po needs some assistance with drinking and meals but getting better need to maintain free intake of fluids Code(s): E23.2 - DIABETES INSIPIDUS (6) Paroxysmal atrial fibrillation Assessment/Plan: cardiology following rate and rhythm controlled on eliquis keep lytes normal ? if should be on telemetry? Code(s): I48.0 - PAROXYSMAL ATRIAL FIBRILLATION (7) Bipolar disorder Assessment/Plan: DI related to long-term lithium use it has been stopped abilify had been started, now stopped also per psych unclear if any alternative meds will be needed/appropriate for long-term use Code(s): F31.9 - BIPOLAR DISORDER, UNSPECIFIED Qualifiers: Active/Remission status: in remission of unspecified degree Qualified Code( s): F31.70 - Bipolar disorder, currently in remission, most recent episode unspecified (8) Hypertension Assessment/Plan: on po beta paige and HCTZ Code(s): I10 - ESSENTIAL (PRIMARY) HYPERTENSION Qualifiers: Hypertension type: essential hypertension Qualified Code(s): I10 - Essential (primary) hypertension (9) Hyperlipidemia Code(s): E78.5 - HYPERLIPIDEMIA, UNSPECIFIED Qualifiers: Hyperlipidemia type: unspecified Qualified Code(s): E78.5 - Hyperlipidemia , unspecified (10) Hypothyroidism Assessment/Plan: on po synthroid but TSH now high endocrine following Code(s): E03.9 - HYPOTHYROIDISM, UNSPECIFIED Qualifiers: Hypothyroidism type: unspecified Qualified Code(s): E03.9 - Hypothyroidism , unspecified (11) Hiatal hernia without gangrene or obstruction Code(s): K44.9 - DIAPHRAGMATIC HERNIA WITHOUT OBSTRUCTION OR GANGRENE
[2018-10-17] MEDS: LEVOTHYROXINE NA 100 MCG TABLET (FP) PO SCH ×2 (05:17→06:18)
[2018-10-17 07:53] LABS: ANION GAP 5 MMOL/L (8-16); BLOOD UREA NITROGEN 22 mg/dL (7-18); CALCIUM 8.5 mg/dL (8.5-10.1); CHLORIDE 108 mmol/L (98-107); CO2 27 mmol/L (21-32); CREATININE 1.2 mg/dL (0.55-1.3); GLUCOSE,RANDOM 97 mg/dL (74-106); MAGNESIUM 2.4 mg/dL (1.8-2.4); PHOSPHOROUS 2.9 mg/dL (2.5-4.9); POTASSIUM 4.4 mmol/L (3.5-5.1); SODIUM 140 mmol/L (136-145)
--- NOTE | 2018-10-17 07:55 | PN ---
Teaching Attending Note Name of Resident: Thomas Cloud ATTENDING PHYSICIAN STATEMENT I saw and evaluated the patient. I reviewed the resident's note and discussed the case with the resident. I agree with the resident's findings and plan as documented with exceptions below. SUBJECTIVE: Patient seen and examined. no complaints, Pleasant, needs re-orientation. OBJECTIVE: Vital Signs Period Temp Pulse Resp BP Sys/Choi Pulse Ox Last 24 Hr 97.9 F-99.2 F 66-103 18-19 93-108/51-67 97 Intake & Output 10/14/18 10/15/18 10/16/18 10/17/18 23:59 23:59 23:59 23:59 Intake Total 8987 959 3815 250 Output Total 450 Balance 1197 879 4311 250 General: sitting in bed in no acute distress Abdomen: soft, NT, surgical dressing clean, colostomy, no voluntary or involuntary guarding or rigidity, positive bowel sounds Extremities: no edema Chest: CTAB, no rales or wheezing Active Medications Acetaminophen (Tylenol -) 650 mg PO Q6H PRN PRN Reason: Pain Level 4 - 10 Last Admin: 10/16/18 05:33 Dose: 650 mg Apixaban (Eliquis -) 5 mg PO BID [facility] Last Admin: 10/16/18 23:09 Dose: 5 mg Diltiazem HCl (Cardizem Injection -) 10 mg IVPUSH Q4H PRN PRN Reason: TACHYCARDIA Sodium Chloride (Normal Saline -) 1,000 mls @ 75 mls/hr IV ASDIR [facility] Last Admin: 10/16/18 16:31 Dose: 75 mls/hr Levothyroxine Sodium (Synthroid -) 100 mcg PO DAILY@0700 [facility] Last Admin: 10/17/18 06:18 Dose: Not Given Metoprolol Tartrate (Lopressor -) 25 mg PO BID [facility] Last Admin: 10/16/18 23:10 Dose: 25 mg Potassium Phos/Sodium Phos (Phos-Nak Packet -) 1 packet PO DAILY [facility] Last Admin: 10/16/18 09:30 Dose: 1 packet Ranitidine HCl (Zantac -) 150 mg PO BID [facility] Last Admin: 10/16/18 23:10 Dose: 150 mg Laboratory Results - last 24 hr 10/16/18 10/16/18 10/17/18 07:00 12:50 06:30 Sodium 137 136 140 Potassium 4.5 4.8 4.4 Chloride 103 101 108 H Carbon Dioxide 25 26 27 Anion Gap 8 9 5 L BUN 20 H 24 H 22 H Creatinine 1.4 H 1.4 H 1.2 Creat Clearance w eGFR 37.28 37.28 44.54 Random Glucose 112 H 113 H 97 Calcium 8.7 8.5 8.5 Phosphorus 3.2 2.9 Magnesium 1.7 L 2.4 ASSESSMENT AND PLAN: 67 year old female with Bipolar Disorder, Hypothyroidism, presented with abdominal pain and developed sepsis secondary to Stercoral perforation and Peritonitis, currently s/p Sidra's, also with New onset Afib with RVR, hypernatremia and AMS. -MONIKA, recurrent, suspect from mild hypovolumia from unreliable oral intake -Sepsis due stercoral perforation with peritonitis s/p Sidra procedure 10/02 ( Sigmoidectomy with colostomy) POD #13, peritoneal culture positive for prevotella -Hypernatremia due to DI from [place] -New onset Afib with RVR -Chronic diastolic dysfunction -Hypokalemia -AMS, suspected multifactorial toxic metabolic encephalopathy from sepsis/ hypernatremia/Delirium/ICU psychosis, superimposed on underlying psychiatric disorder -Bipolar disorder -Hypothyroidism -HTN -Protein Calorie Malnutrition Plan: WBC normalized. s/p Meropenem/Vanco (D/dino 10/11). Meropenem resumed 10/13 given leucocytosis/ low grade temp. WBC normalized. ID input noted. Antibiotics d/dino. Repeat cultures neg so far. Tolerating diet, colostomy care. Na improved with D5W/HYCTZ. IVF d/dino 10/11. Cr stable without additional IVF at night. needs encouragement for PO intake. Cr stable, encourage oral fluid intake. Hold off on HCTZ. Cardiology input noted, 2D echo reviewed. Lopressor/Eliquis. Psychiatry input noted. Off Li. Trial with abilify , d/dino 10/13. Repeat TSH 41.8. T4 normal. Repeat TSH noted. Endocrine input noted. discuss T3 studies with Dr. Yu. Dispo dc to day if bed available with outpatient surgery/cardiology/ endocrine/PCP and psychiatry follow up. DVTPPX eliquis GIPPX ranitidine.
[2018-10-17 08:00] LABS: HEMATOCRIT 31.1 % (32.4-45.2); HEMOGLOBIN 10.6 GM/dL (10.7-15.3); MCH 27.8 pg (25.7-33.7); MEAN CELL VOLUME 81.7 fl (80-96); PLATELET COUNT 457 K/MM3 (134-434); RBC 3.81 M/mm3 (3.60-5.2); RDW 13.8 % (11.6-15.6); WHITE BLOOD COUNT 6.2 K/mm3 (4.0-10.0)
--- NOTE | 2018-10-17 09:15 | PN ---
Progress Note (short form) - Note Progress Note: Denoies any complaints Vital Signs Period Temp Pulse Resp BP Sys/Choi Pulse Ox Last 24 Hr 97.9 F-99.2 F 66-90 -18 94-108/51-74 PE: Awake, alert Neck: Supple, No JVD HEENT: EOMI Lungs: CTA CVS: S1S2 Abd: Benign Ext: No edema CMP Sodium 140 mmol/L (136-145) 10/17/18 06:30 Potassium 4.4 mmol/L (3.5-5.1) 10/17/18 06:30 Chloride 108 mmol/L (98-107) H 10/17/18 06:30 Carbon Dioxide 27 mmol/L (21-32) 10/17/18 06:30 Anion Gap 5 MMOL/L (8-16) L 10/17/18 06:30 BUN 22 mg/dL (7-18) H 10/17/18 06:30 Creatinine 1.2 mg/dL (0.55-1.3) 10/17/18 06:30 Creat Clearance w eGFR 44.54 (>60) 10/17/18 06:30 POC Glucometer 135.71973 UNITS (80-120) 10/06/18 13:08 Random Glucose 97 mg/dL (74-106) 10/17/18 06:30 Hemoglobin A1c % 5.0 % (4.2-6.3) 10/02/18 05:30 Serum Osmolality 337 mosm/kg (278-305) H 10/06/18 19:05 Lactic Acid 1.3 mmol/L (0.4-2.0) 10/01/18 21:30 Calcium 8.5 mg/dL (8.5-10.1) 10/17/18 06:30 Phosphorus 2.9 mg/dL (2.5-4.9) 10/17/18 06:30 Magnesium 2.4 mg/dL (1.8-2.4) 10/17/18 06:30 Total Bilirubin 0.3 mg/dL (0.2-1) 10/15/18 06:20 Direct Bilirubin 0.1 mg/dL (0.0-0.2) 10/02/18 05:30 AST 32 U/L (15-37) 10/15/18 06:20 ALT 38 U/L (13-61) 10/15/18 06:20 Alkaline Phosphatase 108 U/L (45-117) 10/15/18 06:20 Creatine Kinase 57 IU/L (26-192) 09/29/18 15:15 Troponin I < 0.02 ng/ml (0.00-0.05) 09/29/18 15:15 B-Natriuretic Peptide 6110.2 pg/ml (5-125) H 10/01/18 21:30 Total Protein 5.8 g/dl (6.4-8.2) L 10/15/18 06:20 Albumin 1.9 g/dl (3.4-5.0) L 10/15/18 06:20 Lipase 325 U/L (73-393) 09/27/18 16:37 TSH 50.80 uIU/ml (0.358-3.74) H 10/15/18 06:20 Free T4 1.30 ng/dl (0.76-1.46) 10/15/18 06:20 Free T3 1.0 pg/ml (2.0-4.4) L 10/15/18 06:20 Total T3 65.00 ng/dl (71-180) L 10/15/18 06:20 Current Medications Generic Name Dose Route Start Last Admin Trade Name Freq PRN Reason Stop Dose Admin Acetaminophen 650 mg 10/12/18 14:04 10/16/18 05:33 Tylenol - PO 650 mg Q6H PRN Administration Pain Level 4 - 10 Apixaban 5 mg 10/10/18 22:00 10/17/18 10:00 Eliquis - PO 5 mg BID THOMAS Administration Diltiazem HCl 10 mg 10/10/18 15:27 Cardizem Injection - IVPUSH Q4H PRN TACHYCARDIA Levothyroxine Sodium 100 mcg 10/18/18 05:00 Synthroid - PO DAILY@0500 THOMAS Metoprolol Tartrate 25 mg 10/13/18 22:00 10/17/18 09:59 Lopressor - PO 25 mg BID THOAMS Administration Potassium Phos/Sodium Phos 1 packet 10/10/18 10:00 10/17/18 09:59 Phos-Nak Packet - PO 1 packet DAILY THOMAS Administration Ranitidine HCl 150 mg 10/10/18 22:00 10/17/18 09:59 Zantac - PO 150 mg BID THOMAS Administration AP: Hypothyroidism: TSH 1.37 on admission to 41.8 and 50.8 now Probably sec to malabsorption LT4 to be given at 5 AM, at least an hour before any food. Continue LT4 100 for now. Rpt TFT in one week, if the TSH doesn't trend down, may increase to increase dose. Sepsis due stercoral perforation with peritonitis s/p Sidra procedure 10/02 Hypernatremia due to DI from [place] New onset Afib with RVR Chronic diastolic dysfunction MONIKA, due to sepsis/hypovolumia, resolved AMS, suspected multifactorial toxic metabolic encephalopathy from sepsis/ hypernatremia/Delirium/ICU psychosis, superimposed on underlying psychiatric disorder Bipolar disorder
[2018-10-17] MEDS ORDERED: PT OWN MED DRAWER 7, Y5N ONE (09:35)
[2018-10-17] MEDS: RANITIDINE HCL 150 MG TABLET (FP) PO SCH ×2 (09:59→21:18)
[2018-10-17] MEDS: NAPH,MB-DB/K PH,MBDB POWDER PACKET PO SCH (09:59)
[2018-10-17] MEDS: METOPROLOL TARTRATE 25 MG TABLET (FP) PO SCH ×2 (09:59→21:18)
[2018-10-17] MEDS: APIXABAN 5 MG TABLET PO SCH ×2 (10:00→21:18)
--- NOTE | 2018-10-17 11:09 | PN ---
Progress Note, Physician History of Present Illness: POD#15 sigmoidectomy with colostomy (Sidra's procedure) for sigmoid stercoral perforation with peritonitis. Remains in NSR. Tolerating regular diet , hemodynamics stable. - Current Medication List Current Medications: Active Medications Acetaminophen (Tylenol -) 650 mg PO Q6H PRN PRN Reason: Pain Level 4 - 10 Last Admin: 10/16/18 05:33 Dose: 650 mg Apixaban (Eliquis -) 5 mg PO BID [facility] Last Admin: 10/17/18 10:00 Dose: 5 mg Diltiazem HCl (Cardizem Injection -) 10 mg IVPUSH Q4H PRN PRN Reason: TACHYCARDIA Levothyroxine Sodium (Synthroid -) 100 mcg PO DAILY@0700 [facility] Last Admin: 10/17/18 06:18 Dose: Not Given Metoprolol Tartrate (Lopressor -) 25 mg PO BID [facility] Last Admin: 10/17/18 09:59 Dose: 25 mg Potassium Phos/Sodium Phos (Phos-Nak Packet -) 1 packet PO DAILY [facility] Last Admin: 10/17/18 09:59 Dose: 1 packet Ranitidine HCl (Zantac -) 150 mg PO BID [facility] Last Admin: 10/17/18 09:59 Dose: 150 mg - Objective Vital Signs: Vital Signs Temperature 98.2 F 10/17/18 10:00 Pulse Rate 90 10/17/18 10:00 Respiratory Rate 18 10/17/18 10:00 Blood Pressure 105/74 10/17/18 10:00 O2 Sat by Pulse Oximetry (%) 97 10/16/18 09:00 Constitutional: Yes: No Distress, Calm, Thin Neck: Yes: Supple Cardiovascular: Yes: Regular Rate and Rhythm Respiratory: Yes: Regular, Diminished Gastrointestinal: Yes: Normal Bowel Sounds, Soft, Other (colostomy intact) Edema: No Labs: CBC, BMP 10/17/18 06:30 10/17/18 06:30 INR, PTT INR 1.32 (0.83-1.09) H 10/08/18 05:15 Problem List - Problems (1) Diverticulitis of large intestine with perforation without abscess or bleeding Code(s): K57.20 - DVTRCLI OF LG INT W PERFORATION AND ABSCESS W/O BLEEDING (2) Hyperlipidemia Code(s): E78.5 - HYPERLIPIDEMIA, UNSPECIFIED Qualifiers: Hyperlipidemia type: unspecified Qualified Code(s): E78.5 - Hyperlipidemia , unspecified (3) Hypertension Code(s): I10 - ESSENTIAL (PRIMARY) HYPERTENSION Qualifiers: Hypertension type: essential hypertension Qualified Code(s): I10 - Essential (primary) hypertension (4) Hypothyroidism Code(s): E03.9 - HYPOTHYROIDISM, UNSPECIFIED Qualifiers: Hypothyroidism type: unspecified Qualified Code(s): E03.9 - Hypothyroidism , unspecified (5) Paroxysmal atrial fibrillation Code(s): I48.0 - PAROXYSMAL ATRIAL FIBRILLATION (6) History of open sigmoidectomy Code(s): Z98.890 - OTHER SPECIFIED POSTPROCEDURAL STATES; Z90.49 - ACQUIRED ABSENCE OF OTHER SPECIFIED PARTS OF DIGESTIVE TRACT Assessment/Plan 09/30/2018 Echo: Normal LV size and fxn LVEF 60-65%, mildly impaired LV compliance, normal RV fxn, normal atrial sizes, mild TR, trace-mild MR 1. POD#15 sigmoidectomy with colostomy (Sidra's procedure) for sigmoid stercoral perforation with peritonitis 2. Paroxysmal atrial fibrillation [id number] score of 3 currently on Eliquis 3. Diastolic LV dysfunction with clinical class 0 NYHA classification LV failure 4. Hypertension 5. Hypothyroidism 6. Bipolar disorder, paranoid behavior 7. Acute on CKD due to renal hypoperfusion improved 8. 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 Continue Eliquis 5 bid 2. Continue Lopressor 25 bid, recheck thyroid panel 3. Continue IV Cardizem as needed for rate control 4. Off antibiotic course per ID 5. Ambulate as tolerated, d/c planning
--- NOTE | 2018-10-17 12:04 | DS ---
Physical Exam: SUBJECTIVE: Patient seen and examined this AM. She states she is feeling well with no complaints. She states that her mouth feels very dry. Encouraged to drink more water for adequate hydration. OBJECTIVE: Vital Signs Period Temp Pulse Resp BP Sys/Choi Pulse Ox Last 24 Hr 97.9 F-99.2 F 66-90 18-18 94-108/51-74 PHYSICAL EXAM GENERAL: A&O X 1, pt knows she is in the hospital but unsure of name, Does not know the date. no acute distress HEAD: Normocephalic, atraumatic. EYES: PERRL, no scleral icterus EARS, NOSE, THROAT: oropharynx clear without exudates. Moist mucous membranes. NECK: supple without lymphadenopathy LUNGS: CTA b/l, no crackles or wheezes HEART: Regular rate and rhythm, normal S1 and S2 without murmur ABDOMEN: Soft, nontender to palpation, normoactive bowel sounds, colostomy bag in tact without erythema or drainage EXTREMITIES: 2+ pulses, warm, well-perfused. No peripheral edema. NEUROLOGICAL: Cranial nerves II-XII grossly intact. Normal speech. PSYCHIATRIC: Cooperative. Good eye contact. Appropriate mood and affect. LABS Laboratory Results - last 24 hr 10/16/18 10/17/18 10/17/18 12:50 06:30 06:30 WBC 6.2 RBC 3.81 Hgb 10.6 L Hct 31.1 L MCV 81.7 MCH 27.8 MCHC 34.0 RDW 13.8 Plt Count 457 H MPV 10.0 Sodium 136 140 Potassium 4.8 4.4 Chloride 101 108 H Carbon Dioxide 26 27 Anion Gap 9 5 L BUN 24 H 22 H Creatinine 1.4 H 1.2 Creat Clearance w eGFR 37.28 44.54 Random Glucose 113 H 97 Calcium 8.5 8.5 Phosphorus 2.9 Magnesium 2.4 HOSPITAL COURSE: Date of Admission:09/28/18 Date of Discharge: 10/17/18 HPI from Admission: this is a 67 y/o F with PMH of cholecystitis, chronic constipation, Bipolar disorder, presented to the ED with two days of lower abdominal pain and constipation. Her last bowel movement was two to three days ago. Pt states that she tried taking generic miralax at home with no relief of her symptoms. She states that her pain is located mostly in the lower abdomen. She rates the pain an 8/10 and it does not radiate. Denies fevers, chills, shortness of breath , chest pain, nausea, vomiting, diarrhea, frequency, urgency, hematuria, rectal bleeding, and lightheadedness. Hospital Course She was found to have a stercoral perforation and was seen by surgery who completed a Sidra's procedure. She was septic secondary to the perforation and was seen by ID who treated with Meropenem and Vancomycin. She was unable to be extubated following the procedure and spent time in the ICU post-op. She was successfully extubated and eventually transferred to a med/surg bed. Her course was complicated by hypernatremia which was likely secondary to her nursing home lithium use. [place] was held, and she was given HCTZ to help resolve her hypernatremia. The HCTZ was discontinued once the Na levels resolved due to borderline low blood pressures. Of note, she was also diagnosed with new onset A -fib. She was seen by cardiology and started on metoprolol and Eliquis. Antibiotics were discontinued as her WBC count and fever resolved and she was deemed medically stable for discharge to a [facility] facility. It is very important to note that she is likely unable to care for her colostomy bag which was one of the main reasons for SNF placement, and if she is discharged to home will likely need round the clock care to help care for the colostomy site as her is very unlikely to be able to care for it as well. There is also a protective pitbull in the home that would have to be relocated to allow for outside care to come in and assist her. Minutes to complete discharge: 60 Discharge Summary Reason For Visit: ABD PAIN Current Active Problems MONIKA (acute kidney injury) (Acute) Abdominal pain (Acute) Abnormal CT scan, sigmoid colon (Acute) Acute hypernatremia (Acute) Bipolar disorder (Acute) Constipation (Acute) Diabetes insipidus (Acute) Diverticulitis of large intestine with perforation without abscess or bleeding ( Acute) Hiatal hernia without gangrene or obstruction (Acute) History of open sigmoidectomy (Acute) Hyperlipidemia (Acute) Hypernatremia (Acute) Hypertension (Acute) Hypothyroidism (Acute) Paroxysmal atrial fibrillation (Acute) Perforation of sigmoid colon (Acute) Stercolith (Acute) Stercoral ulcer of large intestine (Acute) Suprapubic pain (Acute) Condition: Stable - Instructions Diet, Activity, Other Instructions: Postoperative instructions: You had a sigmoid colon resection with colostomy for perforation (hole in the colon) from very hard stool on 10/[address] Raudel Underwood of [facility]. Activity: Resume your usual activities gradually, but no heavy exertion or lifting more than 10-15 pounds for 4-6 weeks. You will need to empty or change your colostomy bag as needed, and the base will need to be changed every few days or anytime it leaks. You are using a 57 mm (2 1/4") colostomy appliance and bag, cut EXACTLY to the stoma/skin interface and no larger. You have four small wounds in the midline of the abdomen, which need daily dressing changes. Small, 2x2 gauze dampened with saline will be tucked into each wound every day, covered with dry gauze +/- an absorbent pad and secured with tape, AVOIDING tape directly on the ostomy appliance. Pain: For pain, you may use Tylenol (acetaminophen) 1-2 pills every 6 hours as needed. Do not take more than 4000 mg of acetaminophen in a day. Take medications as prescribed or indicated on the labeling. Follow-up: Call the [facility] at [facility] (on 5W , 5th floor) at [phone] to make an appointment with Dr. Underwood or Dr. Torrez ( her partner) to followup within 2 weeks. The FACILITY MUST ARRANGE AND TRANSPORT you to your appointment. Call Dr. Underwood's office at [phone] if you have: * increasing pain not responsive to pain medication * fever of 101F or higher * vomiting * unusual or increasing bleeding or drainage from wounds * increasing redness or swelling at wound sites Also, see your primary medical doctor within 1-2 weeks. You were admitted for abdominal pain and found to have a perforated colon (bowel ). You were operated on and part of your colon was removed and surgically repaired in a procedure known as the Sidra's procedure. You have a colostomy bag currently which requires daily care as below. Your hospital course was complicated by a severe infection in your abdomen secondary to the ruptured bowel. You were treated with antibiotics and spent time in the ICU. Your infection improved and you were transferred to the general medical/surgical floor. You also developed an abnormal heart rhythm called atrial fibrillation, which is being controlled with medication, but puts you at higher risk of stroke. You were started on a beta paige and a blood thinner because of this problem. Of note, your Sodium level was also very high early on in your stay likely caused by diabetes insipidus, a problem with the kidneys controlling salt balance, which was likely a side effect of the lithium you were taking. Your lithium was discontinued, your sodium levels returned to normal, and you have been medically stable off of the lithium. Your kidney numbers became a little elevated likely due to dehydration. They have now resolved but it is very important that you drink a lot of water and maintain adequate hydration. Your TSH (Thyroid marker) was elevated. You were seen by an ticket marker who did not recommend any changes to your Synthroid, though it is very important that you take the medication appropriately. Synthroid should be taken very early in the morning 1 hour prior to any food. At this time you are medically safe to be discharged from the hospital, though it is recommended that you go to a custodial facility for further rehab and care of your colostomy site and open wounds. Following rehab, it is recommended that you have a visiting nursing service to help you with continued care of your colostomy and wound care. If you and/or your cannot learn to manage your colostomy independently, you may need to be evaluated for round- the-clock, in-home care attendants. Medications: Your LITHIUM was STOPPED during this hospital stay. You should NOT take this medication from now on until you are seen by a psychiatrist who can make further recommendations on your medications. You should otherwise continue taking all of your medications as they were prescribed to you prior to this hospital admission. You were also started on Eliquis, which is a blood thinner, twice daily, which you will continue taking. You may bleed easily if injured while taking this medicine, and should seek medical attention immediately for any injury. PLEASE MAKE SURE TO TAKE YOUR LEVOTHYROXINE EARLY IN MORNING (PREFERABLY 5 AM) 1 -2 HOURS BEFORE ANY MEAL Follow ups: You should be seen by your primary care physician within one week of discharge from the hospital. You should have your thyroid studies repeated in one week to make sure they are improving. If not your medication may need to be adjusted. You should follow up within two weeks of discharge with the surgeon who performed your procedure. You should also be seen by your psychiatrist within 1 week of discharge from the hospital You will need follow up with endocrine Dr. Yu in 1 week. You will need follow up with cylinder dyer Dr. Schmidt in 1-2 weeks. FOLLOW UP BLOOD WORK; TSH in 1 week if and if is not improved, your levothyroxine dose will need to be adjusted Please discuss with your doctor. Wound Care: continue daily wound care - 2x2 gauze into each site, covered by folded gauze, + /-ABD pad and tape to secure there is a plastic TEMPLATE, which is to be used with ALL changes of the colostomy base/appliance, and skin prep must be used on all surrounding skin right up to the stoma, so the appliance can be secured very closely. You may need to obtain a CONVEX COLOSTOMY APPLIANCE to help get a good pouch seal around the edges. If you have any severe abdominal pain, fevers, signs of infection, or any other concerning symptoms, it is important that you be seen by your primary physician or return to the Emergency Department. Referrals: Laurie Estrada MD [Staff Physician] - Raudel Underwood MD [Staff Physician] - Tuan Bronson [Non Staff, Medical] - Markell Schmidt MD [Staff Physician] - 2 Weeks Marisol Yu MD [Staff Physician] - Disposition: [facility] - Home Medications Comprehensive Discharge Medication List: Ambulatory Orders Atorvastatin Ca [Lipitor] 5 mg PO HS 02/23/17 Levothyroxine [Synthroid -] 100 mcg PO DAILY 02/23/17 Meclizine HCl 12.5 mg PO BID PRN 02/23/17 Rizatriptan Benzoate [Maxalt] 10 mg PO PRN PRN 02/23/17 Loratadine [Claritin] 10 mg PO DAILY 09/27/18 Calcium Carb, Citrate/Vit D3 [Citracal + D ER Tablet] 1 each PO BID 09/29/18 Glucosa Teixeira 2Kcl/Chondroitin Teixeira [Glucosamine & Chondroitin Cap] 2 each PO DAILY 09/29/18 Oxybutynin Chloride 5 mg PO DAILY 09/29/18 Sodium Chloride [Saline Nasal [place]] 45 ml NS PRN PRN 09/29/18 Acetaminophen [Tylenol .Regular Strength -] 650 mg PO Q6H PRN tablet 10/17/18 This patient is new to me today: No Emergency Visit: Yes ED Registration Date: 09/28/18 Care time: The patient presented to the Emergency Department on the above date and was hospitalized for further evaluation of their emergent condition. Critical Care patient: No - Discharge Referral Referred to [facility] Med [facility].: No
--- NOTE | 2018-10-17 12:38 | PN ---
Progress Note (short form) - Note Progress Note: Renal follow up for MONIKA Pt seen and examined at the bedside no acute complaints Vital Signs Temperature 98.2 F 10/17/18 10:00 Pulse Rate 90 10/17/18 10:00 Respiratory Rate 18 10/17/18 10:00 Blood Pressure 105/74 10/17/18 10:00 O2 Sat by Pulse Oximetry (%) 97 10/16/18 09:00 Intake & Output 10/14/18 10/15/18 10/16/18 10/17/18 23:59 23:59 23:59 23:59 Intake Total 4022 763 0628 510 Output Total 450 Balance 4390 765 3035 510 NAD awake and alert neck supple No LE edema CBC, BMP 10/17/18 06:30 10/17/18 06:30 Current Medications Acetaminophen (Tylenol -) 650 mg PO Q6H PRN PRN Reason: Pain Level 4 - 10 Last Admin: 10/16/18 05:33 Dose: 650 mg Apixaban (Eliquis -) 5 mg PO BID [facility] Last Admin: 10/17/18 10:00 Dose: 5 mg Diltiazem HCl (Cardizem Injection -) 10 mg IVPUSH Q4H PRN PRN Reason: TACHYCARDIA Levothyroxine Sodium (Synthroid -) 100 mcg PO DAILY@0700 [facility] Last Admin: 10/17/18 06:18 Dose: Not Given Metoprolol Tartrate (Lopressor -) 25 mg PO BID [facility] Last Admin: 10/17/18 09:59 Dose: 25 mg Potassium Phos/Sodium Phos (Phos-Nak Packet -) 1 packet PO DAILY [facility] Last Admin: 10/17/18 09:59 Dose: 1 packet Ranitidine HCl (Zantac -) 150 mg PO BID [facility] Last Admin: 10/17/18 09:59 Dose: 150 mg 67 year old woman with hx of bipolar disorder, cholecystitis who presented with constipation and lower abd pain and found to have acute diverticulosis and new Afib with subsequent development of ileus with MONIKA. 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
--- NOTE | 2018-10-17 14:33 | PN ---
Progress Note, Physician History of Present Illness: stable no new issues - Current Medication List Current Medications: Active Medications Acetaminophen (Tylenol -) 650 mg PO Q6H PRN PRN Reason: Pain Level 4 - 10 Last Admin: 10/16/18 05:33 Dose: 650 mg Apixaban (Eliquis -) 5 mg PO BID [facility] Last Admin: 10/17/18 10:00 Dose: 5 mg Diltiazem HCl (Cardizem Injection -) 10 mg IVPUSH Q4H PRN PRN Reason: TACHYCARDIA Levothyroxine Sodium (Synthroid -) 100 mcg PO DAILY@0500 [facility] Metoprolol Tartrate (Lopressor -) 25 mg PO BID [facility] Last Admin: 10/17/18 09:59 Dose: 25 mg Potassium Phos/Sodium Phos (Phos-Nak Packet -) 1 packet PO DAILY [facility] Last Admin: 10/17/18 09:59 Dose: 1 packet Ranitidine HCl (Zantac -) 150 mg PO BID [facility] Last Admin: 10/17/18 09:59 Dose: 150 mg - Objective Vital Signs: Vital Signs Temperature 98.2 F 10/17/18 10:00 Pulse Rate 90 10/17/18 10:00 Respiratory Rate 18 10/17/18 10:00 Blood Pressure 105/74 10/17/18 10:00 O2 Sat by Pulse Oximetry (%) 97 10/16/18 09:00 Constitutional: Yes: No Distress, Calm Cardiovascular: Yes: Regular Rate and Rhythm Respiratory: Yes: Regular, CTA Bilaterally Gastrointestinal: Yes: Normal Bowel Sounds, Soft, Other (colostomy) Musculoskeletal: Yes: WNL Extremities: Yes: WNL Neurological: Yes: Alert Psychiatric: Yes: Alert Labs: CBC, BMP 10/17/18 06:30 10/17/18 06:30 INR, PTT INR 1.32 (0.83-1.09) H 10/08/18 05:15 Assessment/Plan - Problems (1) Diverticulitis of large intestine with perforation without abscess or bleeding Code(s): K57.20 - DVTRCLI OF LG INT W PERFORATION AND ABSCESS W/O BLEEDING (2) Suprapubic pain Code(s): R10.2 - PELVIC AND PERINEAL PAIN (3) Constipation Code(s): K59.00 - CONSTIPATION, UNSPECIFIED Qualifiers: Constipation type: other constipation type Qualified Code(s): K59.09 - Other constipation (4) Paroxysmal atrial fibrillation Code(s): I48.0 - PAROXYSMAL ATRIAL FIBRILLATION (5) Bipolar disorder Code(s): F31.9 - BIPOLAR DISORDER, UNSPECIFIED Qualifiers: Active/Remission status: in remission of unspecified degree Qualified Code( s): F31.70 - Bipolar disorder, currently in remission, most recent episode unspecified (6) Hypertension Code(s): I10 - ESSENTIAL (PRIMARY) HYPERTENSION Qualifiers: Hypertension type: essential hypertension Qualified Code(s): I10 - Essential (primary) hypertension (7) Hyperlipidemia Code(s): E78.5 - HYPERLIPIDEMIA, UNSPECIFIED Qualifiers: Hyperlipidemia type: unspecified Qualified Code(s): E78.5 - Hyperlipidemia , unspecified (8) Hypothyroidism Code(s): E03.9 - HYPOTHYROIDISM, UNSPECIFIED Qualifiers: Hypothyroidism type: unspecified Qualified Code(s): E03.9 - Hypothyroidism , unspecified (9) Hiatal hernia without gangrene or obstruction Code(s): K44.9 - DIAPHRAGMATIC HERNIA WITHOUT OBSTRUCTION OR GANGRENE plan continue to monitor without abx rest continue current mgmt nutrition patient doing well
--- NOTE | 2018-10-17 15:08 | PN ---
Progress Note, Physician History of Present Illness: s/p Sidra's procedure for OR findings of stercoral perforation with peritonitis abx stopped again pt seen and examined in bed she is alert, responsive and less confused but still with spotty memory and some confused comments she has been OOB and walked with PT pain is controlled, but she is briefly uncomfortable with dressing change tolerating diet and taking ensure with meals, eating "most of my hot meals" now , improved drinking fluids ad kleber, needs some assistance getting drinks from tray, but doing well colostomy functioning, bag leaked medially and soiled midline dressing, soft brown stool - Current Medication List Current Medications: Active Medications Acetaminophen (Tylenol -) 650 mg PO Q6H PRN PRN Reason: Pain Level 4 - 10 Last Admin: 10/16/18 05:33 Dose: 650 mg Apixaban (Eliquis -) 5 mg PO BID [facility] Last Admin: 10/17/18 10:00 Dose: 5 mg Diltiazem HCl (Cardizem Injection -) 10 mg IVPUSH Q4H PRN PRN Reason: TACHYCARDIA Levothyroxine Sodium (Synthroid -) 100 mcg PO DAILY@0500 [facility] Metoprolol Tartrate (Lopressor -) 25 mg PO BID [facility] Last Admin: 10/17/18 09:59 Dose: 25 mg Potassium Phos/Sodium Phos (Phos-Nak Packet -) 1 packet PO DAILY [facility] Last Admin: 10/17/18 09:59 Dose: 1 packet Ranitidine HCl (Zantac -) 150 mg PO BID [facility] Last Admin: 10/17/18 09:59 Dose: 150 mg - Objective Vital Signs: Vital Signs Temperature 98.2 F 10/17/18 10:00 Pulse Rate 90 10/17/18 10:00 Respiratory Rate 18 10/17/18 10:00 Blood Pressure 105/74 10/17/18 10:00 O2 Sat by Pulse Oximetry (%) 97 10/16/18 09:00 Constitutional: Yes: Well Nourished, No Distress, Calm Eyes: Yes: Conjunctiva Clear, EOM Intact HENT: Yes: Atraumatic, Normocephalic Gastrointestinal: Yes: Soft, Other (colostomy p/p/p - bag changed with TEMPLATE for base, skin prep (2 1/4" base and bag)). No: Distention, Tenderness Extremities: No: Cool, Cyanosis Integumentary: Yes: Incision (midline w/dressing). No: Jaundice, Rash Wound/Incision: Yes: Cedrick Intact (between wounds), Dressing Removed (and wounds cleansed with saline, redressed with 2x2 gauze in each, covered with gauze, abd and tape), Dixon Removed (all), Unapproximated (between cedrick, clean, granulating, upper ones get soiled occasionally, but still pink-based) Neurological: Yes: Alert, Oriented, Confusion (mildly) Labs: CBC, BMP 10/17/18 06:30 10/17/18 06:30 Problem List - Problems (1) Perforation of sigmoid colon Assessment/Plan: POD15 s/p sigmoidectomy with colostomy (Sidra's procedure) for stercoral perforation of sigmoid with peritonitis pathology consistent with sigmoid perforation, serositis, margins viable antibiotics now off hypernatremia resolved, 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 renal following, now off HCTZ less confused today - improved memory and conversation off lithium and abilify TSH high, ?malabsorption, ?timing of med - endocrine following colostomy functioning tolerating diet - taking Ensure with meals eating more and better ad kleber free water/liquid intake, no caffeine continue strict I/O's for UOP measurement pain meds - prn tylenol incisions clean, wound dressings changed continue daily wound care - 2x2 gauze into each site, covered by folded gauze, + /-abd and paper tape to secure ostomy base replaced for leaking, TEMPLATE at bedside to be used with ALL changes may need to get proper size convex appliance for ostomy PT seeing, pt reports walking with them she is to go to [facility] for wound care, colostomy care and physical therapy on discharge, possibly today will also eventually need VNS arranged for home after rehab, and possibly evaluation for full-time home economics extension worker they have a very protective (per other family members) pit bull, which her assured me would be sent to his son's house, in order for VNS or other home care personnel to be able to come over I have serious doubts that she will be able to manage her colostomy alone, and am certain her will not be capable of assisting with wound or colostomy care. discharge instructions in d/c plan - to follow up with us soon, [facility] facility must make appointment and bring her to be seen Code(s): K63.1 - PERFORATION OF INTESTINE (NONTRAUMATIC) (2) Stercoral ulcer of large intestine Code(s): K63.3 - ULCER OF INTESTINE (3) Stercolith Code(s): K56.41 - FECAL IMPACTION (4) Constipation Code(s): K59.00 - CONSTIPATION, UNSPECIFIED Qualifiers: Constipation type: chronic idiopathic constipation Qualified Code(s): K59.04 - Chronic idiopathic constipation (5) Diabetes insipidus Code(s): E23.2 - DIABETES INSIPIDUS (6) Paroxysmal atrial fibrillation Assessment/Plan: cardiology following rate and rhythm controlled on eliquis keep lytes normal Code(s): I48.0 - PAROXYSMAL ATRIAL FIBRILLATION (7) Bipolar disorder Assessment/Plan: DI related to long-term lithium use it has been stopped abilify had been started, now stopped also per psych unclear if any alternative meds will be needed/appropriate for long-term use Code(s): F31.9 - BIPOLAR DISORDER, UNSPECIFIED Qualifiers: Active/Remission status: in remission of unspecified degree Qualified Code( s): F31.70 - Bipolar disorder, currently in remission, most recent episode unspecified (8) Hypertension Assessment/Plan: on po beta paige Code(s): I10 - ESSENTIAL (PRIMARY) HYPERTENSION Qualifiers: Hypertension type: essential hypertension Qualified Code(s): I10 - Essential (primary) hypertension (9) Hyperlipidemia Code(s): E78.5 - HYPERLIPIDEMIA, UNSPECIFIED Qualifiers: Hyperlipidemia type: unspecified Qualified Code(s): E78.5 - Hyperlipidemia , unspecified (10) Hypothyroidism Assessment/Plan: on po synthroid but TSH now high endocrine following Code(s): E03.9 - HYPOTHYROIDISM, UNSPECIFIED Qualifiers: Hypothyroidism type: unspecified Qualified Code(s): E03.9 - Hypothyroidism , unspecified (11) Hiatal hernia without gangrene or obstruction Code(s): K44.9 - DIAPHRAGMATIC HERNIA WITHOUT OBSTRUCTION OR GANGRENE
[2018-10-18] MEDS ORDERED: LEVOTHYROXINE NA 100 MCG TABLET (FP) PO SCH (05:00)
[2018-10-18] MEDS: APIXABAN 5 MG TABLET PO SCH (09:30)
[2018-10-18] MEDS: NAPH,MB-DB/K PH,MBDB POWDER PACKET PO SCH (09:30)
[2018-10-18] MEDS ORDERED: PT OWN MED DRAWER 7, Y5N ONE (09:30)
[2018-10-18] MEDS: METOPROLOL TARTRATE 25 MG TABLET (FP) PO SCH (09:30)
[2018-10-18] MEDS: RANITIDINE HCL 150 MG TABLET (FP) PO SCH (09:31)
[2018-10-18 09:33] VITALS: BP 104/60; PULSE 91; TEMP 97.7
--- NOTE | 2018-10-18 12:08 | PN ---
Progress Note, Physician History of Present Illness: POD#16 sigmoidectomy with colostomy (Sidra's procedure) for sigmoid stercoral perforation with peritonitis. Remains in NSR. Tolerating regular diet , hemodynamics stable. - Current Medication List Current Medications: Active Medications Acetaminophen (Tylenol -) 650 mg PO Q6H PRN PRN Reason: Pain Level 4 - 10 Last Admin: 10/16/18 05:33 Dose: 650 mg Apixaban (Eliquis -) 5 mg PO BID [facility] Last Admin: 10/18/18 09:30 Dose: 5 mg Diltiazem HCl (Cardizem Injection -) 10 mg IVPUSH Q4H PRN PRN Reason: TACHYCARDIA Levothyroxine Sodium (Synthroid -) 100 mcg PO DAILY@0500 [facility] Last Admin: 10/18/18 05:17 Dose: 100 mcg Metoprolol Tartrate (Lopressor -) 25 mg PO BID [facility] Last Admin: 10/18/18 09:30 Dose: 25 mg Potassium Phos/Sodium Phos (Phos-Nak Packet -) 1 packet PO DAILY [facility] Last Admin: 10/18/18 09:30 Dose: 1 packet Ranitidine HCl (Zantac -) 150 mg PO BID [facility] Last Admin: 10/18/18 09:31 Dose: 150 mg - Objective Vital Signs: Vital Signs Temperature 97.7 F 10/18/18 09:32 Pulse Rate 91 H 10/18/18 09:32 Respiratory Rate 18 10/18/18 09:32 Blood Pressure 104/60 10/18/18 09:32 O2 Sat by Pulse Oximetry (%) 96 10/18/18 09:37 Constitutional: Yes: No Distress, Calm, Thin Neck: Yes: Supple Cardiovascular: Yes: Regular Rate and Rhythm Respiratory: Yes: Regular, Diminished Gastrointestinal: Yes: Normal Bowel Sounds, Soft, Other (Colostomy intact) Edema: No Labs: CBC, BMP 10/17/18 06:30 10/17/18 06:30 INR, PTT INR 1.32 (0.83-1.09) H 10/08/18 05:15 Problem List - Problems (1) Diverticulitis of large intestine with perforation without abscess or bleeding Code(s): K57.20 - DVTRCLI OF LG INT W PERFORATION AND ABSCESS W/O BLEEDING (2) Hyperlipidemia Code(s): E78.5 - HYPERLIPIDEMIA, UNSPECIFIED Qualifiers: Hyperlipidemia type: unspecified Qualified Code(s): E78.5 - Hyperlipidemia , unspecified (3) Hypertension Code(s): I10 - ESSENTIAL (PRIMARY) HYPERTENSION Qualifiers: Hypertension type: essential hypertension Qualified Code(s): I10 - Essential (primary) hypertension (4) Hypothyroidism Code(s): E03.9 - HYPOTHYROIDISM, UNSPECIFIED Qualifiers: Hypothyroidism type: unspecified Qualified Code(s): E03.9 - Hypothyroidism , unspecified (5) Paroxysmal atrial fibrillation Code(s): I48.0 - PAROXYSMAL ATRIAL FIBRILLATION (6) History of open sigmoidectomy Code(s): Z98.890 - OTHER SPECIFIED POSTPROCEDURAL STATES; Z90.49 - ACQUIRED ABSENCE OF OTHER SPECIFIED PARTS OF DIGESTIVE TRACT Assessment/Plan 09/30/2018 Echo: Normal LV size and fxn LVEF 60-65%, mildly impaired LV compliance, normal RV fxn, normal atrial sizes, mild TR, trace-mild MR 1. POD#16 sigmoidectomy with colostomy (Sidra's procedure) for sigmoid stercoral perforation with peritonitis 2. Paroxysmal atrial fibrillation [id number] score of 3 currently on Eliquis 3. Diastolic LV dysfunction with clinical class 0 NYHA classification LV failure 4. Hypertension 5. Hypothyroidism 6. Bipolar disorder, paranoid behavior 7. Acute on CKD due to renal hypoperfusion improved 8. 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 Continue Eliquis 5 bid 2. Continue Lopressor 25 bid, uptitrate Synthroid per TSH 3. Continue IV Cardizem as needed for rate control 4. Off antibiotic course per ID 5. Ambulate as tolerated, d/c planning
--- NOTE | 2018-10-18 12:42 | PN ---
Progress Note (short form) - Note Progress Note: Renal follow up for MONIKA Pt seen and examined at the bedside no acute complaints drinking water no N/V Vital Signs Temperature 97.7 F 10/18/18 09:32 Pulse Rate 91 H 10/18/18 09:32 Respiratory Rate 18 10/18/18 09:32 Blood Pressure 104/60 10/18/18 09:32 O2 Sat by Pulse Oximetry (%) 96 10/18/18 09:37 Intake & Output 10/15/18 10/16/18 10/17/18 10/18/18 23:59 23:59 23:59 23:59 Intake Total 895 2075 1610 720 Output Total 450 Balance 445 2075 1610 720 NAD awake and alert neck supple No LE edema CBC, BMP 10/17/18 06:30 10/17/18 06:30 Current Medications Acetaminophen (Tylenol -) 650 mg PO Q6H PRN PRN Reason: Pain Level 4 - 10 Last Admin: 10/16/18 05:33 Dose: 650 mg Apixaban (Eliquis -) 5 mg PO BID [facility] Last Admin: 10/18/18 09:30 Dose: 5 mg Diltiazem HCl (Cardizem Injection -) 10 mg IVPUSH Q4H PRN PRN Reason: TACHYCARDIA Levothyroxine Sodium (Synthroid -) 100 mcg PO DAILY@0500 [facility] Last Admin: 10/18/18 05:17 Dose: 100 mcg Metoprolol Tartrate (Lopressor -) 25 mg PO BID [facility] Last Admin: 10/18/18 09:30 Dose: 25 mg Potassium Phos/Sodium Phos (Phos-Nak Packet -) 1 packet PO DAILY [facility] Last Admin: 10/18/18 09:30 Dose: 1 packet Ranitidine HCl (Zantac -) 150 mg PO BID [facility] Last Admin: 10/18/18 09:31 Dose: 150 mg 67 year old woman with hx of bipolar disorder, cholecystitis who presented with constipation and lower abd pain and found to have acute diverticulosis and new Afib with subsequent development of ileus with MONIKA. 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 Sulaiman Zarate DO
--- NOTE | 2018-10-18 14:48 | PN ---
Progress Note, Physician History of Present Illness: stable doing well no complaints - Current Medication List Current Medications: Active Medications Acetaminophen (Tylenol -) 650 mg PO Q6H PRN PRN Reason: Pain Level 4 - 10 Last Admin: 10/16/18 05:33 Dose: 650 mg Apixaban (Eliquis -) 5 mg PO BID [facility] Last Admin: 10/18/18 09:30 Dose: 5 mg Diltiazem HCl (Cardizem Injection -) 10 mg IVPUSH Q4H PRN PRN Reason: TACHYCARDIA Levothyroxine Sodium (Synthroid -) 100 mcg PO DAILY@0500 [facility] Last Admin: 10/18/18 05:17 Dose: 100 mcg Metoprolol Tartrate (Lopressor -) 25 mg PO BID [facility] Last Admin: 10/18/18 09:30 Dose: 25 mg Potassium Phos/Sodium Phos (Phos-Nak Packet -) 1 packet PO DAILY [facility] Last Admin: 10/18/18 09:30 Dose: 1 packet Ranitidine HCl (Zantac -) 150 mg PO BID [facility] Last Admin: 10/18/18 09:31 Dose: 150 mg - Objective Vital Signs: Vital Signs Temperature 97.7 F 10/18/18 09:32 Pulse Rate 91 H 10/18/18 09:32 Respiratory Rate 18 10/18/18 09:32 Blood Pressure 104/60 10/18/18 09:32 O2 Sat by Pulse Oximetry (%) 96 10/18/18 09:37 Constitutional: Yes: No Distress, Calm Cardiovascular: Yes: Regular Rate and Rhythm Respiratory: Yes: Regular, CTA Bilaterally Gastrointestinal: Yes: Normal Bowel Sounds, Soft, Other (colostomy in oace) Musculoskeletal: Yes: WNL Extremities: Yes: WNL Wound/Incision: Yes: Dressing Dry and Intact Neurological: Yes: Alert, Oriented Psychiatric: Yes: Alert, Oriented Labs: CBC, BMP 10/17/18 06:30 10/17/18 06:30 INR, PTT INR 1.32 (0.83-1.09) H 10/08/18 05:15 Assessment/Plan - Problems (1) Diverticulitis of large intestine with perforation without abscess or bleeding Code(s): K57.20 - DVTRCLI OF LG INT W PERFORATION AND ABSCESS W/O BLEEDING (2) Suprapubic pain Code(s): R10.2 - PELVIC AND PERINEAL PAIN (3) Constipation Code(s): K59.00 - CONSTIPATION, UNSPECIFIED Qualifiers: Constipation type: other constipation type Qualified Code(s): K59.09 - Other constipation (4) Paroxysmal atrial fibrillation Code(s): I48.0 - PAROXYSMAL ATRIAL FIBRILLATION (5) Bipolar disorder Code(s): F31.9 - BIPOLAR DISORDER, UNSPECIFIED Qualifiers: Active/Remission status: in remission of unspecified degree Qualified Code( s): F31.70 - Bipolar disorder, currently in remission, most recent episode unspecified (6) Hypertension Code(s): I10 - ESSENTIAL (PRIMARY) HYPERTENSION Qualifiers: Hypertension type: essential hypertension Qualified Code(s): I10 - Essential (primary) hypertension (7) Hyperlipidemia Code(s): E78.5 - HYPERLIPIDEMIA, UNSPECIFIED Qualifiers: Hyperlipidemia type: unspecified Qualified Code(s): E78.5 - Hyperlipidemia , unspecified (8) Hypothyroidism Code(s): E03.9 - HYPOTHYROIDISM, UNSPECIFIED Qualifiers: Hypothyroidism type: unspecified Qualified Code(s): E03.9 - Hypothyroidism , unspecified (9) Hiatal hernia without gangrene or obstruction Code(s): K44.9 - DIAPHRAGMATIC HERNIA WITHOUT OBSTRUCTION OR GANGRENE plan continue to monitor without abx rest continue current mgmt nutrition patient doing well
--- NOTE | 2018-10-18 17:52 | PN ---
Teaching Attending Note Name of Resident: Thomas Cloud ATTENDING PHYSICIAN STATEMENT I saw and evaluated the patient. I reviewed the resident's note and discussed the case with the resident. I agree with the resident's findings and plan as documented with exceptions below. SUBJECTIVE: Patient seen and examined. no complaints, pleasant, eager to go to rehab. Tolerating diet, no complaints. OBJECTIVE: Vital Signs Period Temp Pulse Resp BP Sys/Choi Pulse Ox Last 24 Hr 97.7 F-98.2 F 78-92 18-20 102-110/60-67 96-97 Intake & Output 10/15/18 10/16/18 10/17/18 10/18/18 23:59 23:59 23:59 23:59 Intake Total 895 2075 1610 720 Output Total 450 Balance 445 2075 1610 720 General: sitting in bed in no acute distress Chest: CTAB, no rales or wheezing Abdomen:soft, NT throughout, left colostomy in place, positive bowel sounds Extremities: no edema NeuroAAOX3, Home Medications Medication Instructions Recorded Atorvastatin Ca [Lipitor] 5 mg PO HS 02/23/17 Meclizine HCl 12.5 mg PO BID PRN 02/23/17 Rizatriptan Benzoate [Maxalt] 10 mg PO PRN PRN 02/23/17 Loratadine [Claritin] 10 mg PO DAILY 09/27/18 Calcium Carb, Citrate/Vit D3 1 each PO BID 09/29/18 [Citracal + D ER Tablet] Glucosa Teixeira 2Kcl/Chondroitin Teixeira 2 each PO DAILY 09/29/18 [Glucosamine & Chondroitin Cap] Oxybutynin Chloride 5 mg PO DAILY 09/29/18 Sodium Chloride [Saline Nasal 45 ml NS PRN PRN 09/29/18 [place]] Acetaminophen [Tylenol .Regular 650 mg PO Q6H PRN tablet 10/17/18 Strength -] Apixaban [Eliquis -] 5 mg PO BID #60 tablet 10/17/18 Levothyroxine [Synthroid -] 100 mcg PO DAILY@0500 tablet 10/17/18 Metoprolol Tartrate [Lopressor -] 25 mg PO BID tablet 10/17/18 A67 year old female with Bipolar Disorder, Hypothyroidism, presented with abdominal pain and developed sepsis secondary to Stercoral perforation and Peritonitis, currently s/p Sidra's, also with New onset Afib with RVR, hypernatremia and AMS. -MONIKA, recurrent, suspect from mild hypovolumia from unreliable oral intake -Sepsis due stercoral perforation with peritonitis s/p Sidra procedure 10/02 ( Sigmoidectomy with colostomy) POD #13, peritoneal culture positive for prevotella -Hypernatremia due to DI from [place] -New onset Afib with RVR -Chronic diastolic dysfunction -Hypokalemia -AMS, suspected multifactorial toxic metabolic encephalopathy from sepsis/ hypernatremia/Delirium/ICU psychosis, superimposed on underlying psychiatric disorder -Bipolar disorder -Hypothyroidism -HTN -Protein Calorie Malnutrition Plan: WBC normalized. s/p Meropenem/Vanco (D/dino 10/11). Meropenem resumed 10/13 given leucocytosis/ low grade temp. WBC normalized. ID input noted. Antibiotics d/dino. Repeat cultures neg so far. Tolerating diet, colostomy care. Na improved with D5W/HYCTZ. IVF d/dino 10/11. Cr stable without additional IVF at night. needs encouragement for PO intake. Cr stable, encourage oral fluid intake. Hold off on HCTZ. Cardiology input noted, 2D echo reviewed. Lopressor/Eliquis. Psychiatry input noted. Off Li. Trial with abilify , d/dino 10/13. Repeat TSH 41.8. T4 normal. Repeat TSH noted. Endocrine input noted. discuss T3 studies with Dr. Yu. Dispo dc to SNF day if bed available with outpatient surgery/cardiology/ endocrine/PCP and psychiatry follow up. DVTPPX eliquis GIPPX ranitidine. Extensive discussion held with patient, , meeting with social work. Patient looking forward to discharge to SNF and motivated to get better. D/c to SNF today.
--- NOTE | 2018-11-03 20:06 | OP ---
DATE OF OPERATION: 10/02/2018 PREOPERATIVE DIAGNOSIS: Perforated diverticulitis. POSTOPERATIVE DIAGNOSIS: Sigmoid stercoral perforation with peritonitis. PROCEDURE: Sigmoidectomy with colostomy (Sidra's procedure). SURGEON: Raudel Underwood MD INSOLE TACK PULLER HAND: Chaz Torrez MD ANESTHESIA: General endotracheal. ESTIMATED BLOOD LOSS: 50 mL. FLUIDS: 5 L of crystalloid. URINE OUTPUT: 300 mL. SPECIMENS: Sigmoid colon to Pathology and peritoneal fluid cultures x2 to Microbiology. DRAINS: NG and Miguel existing preoperatively and were left in place. Colostomy with 57-mm basin bag was also left. FINDINGS: Very hard small stool balls in the colon. Purulent fluid in the pelvis with peel on the intestines and farrell of the left lower quadrant were found. Small bowel was also stuck in the left lower quadrant and pelvic area with proximal dilation of the bowel. The distal sigmoid was located in the pelvis with 2 adjacent holes in the bowel wall at the site of hard stool balls. Sigmoid was resected and a descending colostomy performed. The abdomen and pelvis were washed out. The NG tube was palpated at the GE junction, going up into the stomach and the chest as the patient had a large hiatal hernia. The fascia was closed. The skin was left partially open and packed. DISPOSITION: The patient was taken intubated, but stable to the Intensive Care Unit postoperatively. INDICATIONS FOR PROCEDURE: The patient is a 67-year-old female with significant medical/surgical history of hypertension, hyperlipidemia, bipolar disorder, asthma, hypothyroidism, and on this admission had also been diagnosed with atrial fibrillation, which has been rate controlled, but had also been on anticoagulation for that. Heparin drip was held as of this morning. Previous surgeries include laparoscopic cholecystectomy and a vaginal hysterectomy with anterior and posterior repair for prolapse. She had initially presented to the emergency room with suprapubic pain in particular with attempting to defecate. She had a CT done showing an ovoid structure in the pelvis concerning for possibly a large diverticulum versus contained perforation versus stool ball. There was inflammation and edema in this area with possibly a few locules of air, but contrast did not yet reach that area. Follow up x-ray showed contrast in the proximal colon and she had been taking some ice chips. A followup CT showed increased inflammation, fluid, and a few locules of air in the region of the structure suggesting microperforation and diagnosis of possibly perforated diverticulitis. The followup abdominal x-ray the next day showed contrast remaining in the proximal colon and she had not been passing any bowel movements yet. Pain and tenderness had improved slightly, but she had also been started on ertapenem and the day prior to surgery had an episode of increased tachypnea, increasing abdominal distention. Portable chest x-ray showed her known hiatal hernia with a large stomach filled with air mostly in the chest. Repeat chest, abdomen, and pelvis CT was done showing enteral contrast still in the proximal colon with increased small bowel dilation, increased inflammatory changes in the pelvis, and small fluid collections, possibly representing abscesses with some air tracking up the left pericolic gutter and a few locules of air in the upper abdomen including in the hiatal hernia sac consistent with an ongoing colonic leak. The patient had remained hemodynamically stable overnight, in sinus rhythm, had a Miguel placed, and was spoken to in the morning when the heparin drip was held about needing to go for urgent surgical exploration and likely sigmoid resection. Risks, benefits, and alternatives of exploratory laparotomy, possible bowel resection, possible ostomy including but not limited to bleeding, infection, injury to adjacent structures, intestinal leak or injury, intraabdominal abscess, incisional hernia, need for further procedures and were discussed with the patient as well as her . Alternatives inclusive of continued antibiotics and no surgery with the risks of that including gross perforation, sepsis, and were also discussed. The patient and her do desire to proceed with an operation. Informed consent was signed for the same. Heparin drip was held about 4 hours prior to surgery. She is now brought to the OR for this procedure. OPERATIVE TECHNIQUE: The patient was brought to the operating room and laid supine on the operating table. Sequential compression devices were applied to bilateral lower extremities. The patient had an existing nasogastric tube and Miguel catheter, which were left in place at the end of the case. After induction and intubation by anesthesia, the patient's abdomen was prepped and draped in the sterile fashion. A midline incision from just above the umbilicus to the suprapubic area was made with a scalpel and carried into the subcutaneous tissues with electrocautery until the abdominal wall fascia was identified along the length of the incision. Towards the upper portion of the incision, the fascia was divided with electrocautery, revealing the preperitoneal fat and the peritoneum was grasped with 2 clamps and entered with Metzenbaum scissors. Initially some yellowish fluid was noted in the abdominal cavity and a culture swab was taken to be sent to Microbiology. Pool suction was used to begin evacuating this fluid and a fingertip was inserted to protect the bowel underneath while the incision was opened along the peritoneum, all of the way to the superior and inferior poles. Once the peritoneum was opened, the small bowel was noted to be somewhat rather dilated proximally and we began eviscerating the small bowel to trace it down into the pelvis. There was peel noted in the left lower quadrant area over both the small bowel and eventually the sigmoid colon. As we got closer to the pelvis, more purulent fluid was evident and a second culture swab was taken of this to send to Microbiology. Some blunt dissection of bowel off of itself with regards to the peel was utilized as well as occasional electrocautery. The small bowel was very slowly released and from the process going on with the pelvis and the left lower quadrant, although the actual site of perforation and the cause was not immediately apparent. Ascites was suctioned from the abdominal cavity as we went and hemostasis was achieved with electrocautery when needed. As the small bowel was slowly freed from this area, it became clear that there was a process going on deep in the pelvis in the midline consistent with the known area of suspicion on the CAT scan and it appeared to be in the sigmoid colon. Once the small bowel had been entirely released from this area, the distal sigmoid colon was palpated and some purulent and indeed feculent fluid also noted to be coming from an area right down in the pelvis. It was unclear at first whether this was sigmoid or rectum, but with a combination of blunt dissection and finger fracture, at least one hole in the sigmoid colon was ultimately identified with a very small, but very hard stool ball present immediately underneath it, which effectively simply shelled out into my hand and was passed off of the operative field. A second stool ball also escaped this area and as the sigmoid was elevated into the operative field, it became clear that there were in fact 2 perforations of the sigmoid colon adjacent to one another at the level of these very hard stool balls, reflecting a stercoral perforation. Fecal contamination was actually fairly minimal in this area, although the purulent ascites that had been present to begin with and the peel indicated a significant peritonitis. The peel was removed as possible over the surfaces of the bowel where appropriate. The abdomen copiously irrigated and suctioned, primarily later in the case, and once the area of effected sigmoid was identified, we ended up dissecting around this enough to be able to free up the segment for transection of both the proximal and distal sigmoid into normal bowel in both directions. The sigmoid appeared in the end to have been folded on itself and stuck to the rectum in the pelvis. Once it was unfolded and raised up into the incision, we were able to get a clear window around the rectosigmoid junction, below the area of perforation. This was able to be transected with a STEPHANY stapler using 2 firings as the distal aspect was quite dilated. The perforation was fairly low in the sigmoid, so a spot for transection proximally was selected in the proximal sigmoid, which still gave us plenty of mobility of the descending colon to bring out for a colostomy. This was also accomplished with a STEPHANY stapler and the mesentery between the two transections was divided with LigaSure handheld device until the specimen could be passed off of the table for pathology. The pelvis again was irrigated copiously with several liters of saline solution and suctioned clean. The proximal limb was then also carefully freed up enough along the white line of Toldt and some adhesions of small bowel to the colon such that the colostomy would be able to be brought out through the left side of the abdominal wall. A spot was then chosen on the left abdominal wall and a small disc of skin excised with scalpel. A core of fat was taken out with electrocautery. The fascia incised in cruciate fashion with electrocautery as well. The muscle was then split and the peritoneum divided with electrocautery to fit 2-3 fingers through this opening. The descending colon limb was then passed up through the new colostomy opening and grasped with a [place] gently at the outside, noted to pass well through the abdominal wall and not be under tension with enough length to be able to mature. This was then left for maturation at the end of the case. The distal limb ends appeared pink and viable at this time. Once the pelvis had been completely washed out, the distal remnant of the rectum was tagged with Prolene sutures at the corners and there were additional multiple hard stool balls palpated throughout the transverse and proximal descending colon, but there were no palpable remaining large balls in the distal rectum. The small bowel appeared viable and the bowel was returned to the abdominal cavity and the omentum was drawn down over the bowels such that the fascia could then be closed with number 1 looped PDS running suture x2, both starting at each end and being tied in the middle. The wound was then again washed out and the skin partially closed with anita, initially around the umbilicus and then additionally in segments above and below the umbilicus leaving 4 openings in the skin and subcutaneous tissue to be packed with 1-inch iodoform at the end of the case. This area was initially covered with a towel and then maturation of the colostomy performed. Almost the entire staple line was removed from the colostomy and the 4 corners matured and tacked to the skin at the subcutaneous tissues with 3-0 Vicryl sutures. Sutures in between the 4 corners were then taken through full-thickness of the colostomy wall into the skin until the entire circumference had been matured. The lumen could be palpated all of the way down to the fascia as being easily patent and benzoin was applied to the skin around this area and a 57-mm ostomy appliance base cut carefully to fit just the edges of the colostomy and skin interface and applied with an appropriate 57-mm bag attached to it. The midline incision of the open skin portion was packed with iodoform as noted, covered with dressing of gauze, and tape. Counts were correct at the end of the procedure. The patient was then left intubated and sedated, placed back on an ICU bed and taken out of the OR to the ICU for recovery. She was hemodynamically stable and had been so throughout the procedure. The nasogastric tube and Miguel catheter again were left in place. Dr. Torrez was an essential assistant dean of students throughout this case, beginning with entry into the abdominal cavity, assistance with manipulation of the bowels and lysis of adhesions, retraction of the abdominal wall, and assistance with dissection down into the pelvis as well as dissecting and removing the specimen, assisting with the anastomosis, and helping with closure of the abdominal fascia. He also assisted with maturing the colostomy. Raudel Underwood M.D. [id number]
--- NOTE | 2018-12-13 20:32 | EKG ---
Test Reason : Blood Pressure : / mmHG Vent. Rate : 110 BPM Atrial Rate : 110 BPM P-R Int : 164 ms QRS Dur : 066 ms QT Int : 316 ms P-R-T Axes : 058 036 006 degrees QTc Int : 427 ms SINUS TACHYCARDIA WITH PREMATURE ATRIAL COMPLEXES OTHERWISE NORMAL ECG WHEN COMPARED WITH ECG OF 29-SEP-2018 10:19, SINUS RHYTHM HAS REPLACED ATRIAL FIBRILLATION Confirmed by FOSTER VERDUGO, DEEPA ([id number]) on 12/13/2018 8:32:28 PM Referred By: Confirmed By:DEEPA HUTCHISON MD
== END 2018-10-18 15:26 | DRG 853 ==
LOC: JER 15:42 → JERBED 22:06 → OBSVTOIN 09-28 01:42 → J5S 09-28 15:52 → J4W 09-29 14:57 → JICU 10-02 17:52 → J5S 10-10 14:55
PROVIDERS: ADMIT Internal Medicine; ATTEND Hospitalist
PROC: 0DBN0ZZ Excision of Sigmoid Colon, Open Approach (ICD-10-PCS; principal; 2018-10-02 14:00)
PROC: 0D1N074 Bypass Sigmoid Colon to Cutaneous with Autologous Tissue Substitute, Open Approach (ICD-10-PCS; 2018-10-02 14:00)
DX: A41.9 Sepsis, unspecified organism (principal); G93.41 Metabolic encephalopathy; J96.00 Acute respiratory failure, unspecified whether with hypoxia or hypercapnia; K65.9 Peritonitis, unspecified; K57.20 Diverticulitis of large intestine with perforation and abscess without bleeding; N17.9 Acute kidney failure, unspecified; J98.11 Atelectasis; K56.7 Ileus, unspecified; E87.0 Hyperosmolality and hypernatremia; K63.3 Ulcer of intestine; I12.9 Hypertensive chronic kidney disease with stage 1 through stage 4 chronic kidney disease, or unspecified chronic kidney disease; N18.9 Chronic kidney disease, unspecified; E03.9 Hypothyroidism, unspecified; I48.0 Paroxysmal atrial fibrillation; K59.00 Constipation, unspecified; Z90.710 Acquired absence of both cervix and uterus; F31.9 Bipolar disorder, unspecified; E78.5 Hyperlipidemia, unspecified; K83.8 Other specified diseases of biliary tract; J45.909 Unspecified asthma, uncomplicated; Z87.891 Personal history of nicotine dependence; K44.9 Diaphragmatic hernia without obstruction or gangrene; Z88.0 Allergy status to penicillin; E86.0 Dehydration; E87.6 Hypokalemia; E88.09 Other disorders of plasma-protein metabolism, not elsewhere classified; K59.09 Other constipation; Z93.3 Colostomy status
CPT/HCPCS: 36415; 36600; 70450-TC; 71045-TC-FY; 71250-TC; 74018-TC-FY; 74019-TC-FY; 74176-TC; 74177-TC; 80048; 80053; 80076; 80178; 81003; 82436; 82550; 82803; 82962; 83036; 83605; 83690; 83735; 83880; 83930; 83935; 84100; 84133; 84295; 84300; 84439; 84443; 84480; 84481; 84484; 85025; 85027; 85610; 85730; 86850; 86900; 86901; 86922; 87040; 87070; 87075; 87086; 87205; 88307-TC; 93005; 93010; 93306-TC; 94002; 94640; 97116-GP; 97162-GP; 97530-GP; 99284-25; G0378; G0480; J0131; J1644; J7030

== ENCOUNTER 2021-08-07 21:40 | Emergency (ER) | payer OTHER ==
[2021-08-07 22:03] VITALS: BP 107/73; TEMP 98.1; BMI 27.5
[2021-08-08 00:30] LABS: BASO % 0.3 % (0-2.0); HEMATOCRIT 35.6 % (32.4-45.2); HEMOGLOBIN 11.9 GM/dL (10.7-15.3); LYMPH % 37.3 % (8-40); MCH 28.3 pg (25.7-33.7); MCHC 33.3 g/dl (32.0-36.0); MEAN CELL VOLUME 84.9 fl (80-96); MEAN PLT VOLUME 8.5 fl (7.5-11.1); MONO % 7.9 % (3.8-10.2); NEUT % 53.5 % (42.8-82.8); PLATELET COUNT 171 10^3/uL (134-434); RBC 4.19 M/mm3 (3.60-5.2); RDW 13.1 % (11.6-15.6); WHITE BLOOD COUNT 4.7 K/mm3 (4.0-10.0)
[2021-08-08 00:42] LABS: CHLORIDE 110 mmol/L (98-107); SODIUM 143 mmol/L (136-145)
[2021-08-08 00:45] LABS: ALBUMIN 3.6 g/dl (3.4-5.0); ANION GAP 4 MMOL/L (8-16); BLOOD UREA NITROGEN 32.1 mg/dL (7-18); CALCIUM 9.5 mg/dL (8.5-10.1); CO2 29 mmol/L (21-32); GLUCOSE,RANDOM 79 mg/dL (74-106)
[2021-08-08 00:48] LABS: CREATININE 1.2 mg/dL (0.55-1.3); SGOT/AST 20 U/L (15-37); SGPT/ALT 28 U/L (13-61)
[2021-08-08 00:50] LABS: BILIRUBIN,TOTAL 0.4 mg/dL (0.2-1); TOT PROT 6.4 g/dl (6.4-8.2)
[2021-08-08 00:51] LABS: ALK PHOS 63 U/L (45-117)
[2021-08-08 02:44] VITALS: PULSE 69
== END 2021-08-08 02:45 | disposition home or self-care (01) ==
LOC: JER 21:40
DX: R06.02 Shortness of breath (principal); R10.84 Generalized abdominal pain
CPT/HCPCS: 36415; 71045-TC-FY; 80053; 82550; 84484; 85025; 93005; 93010; 99285-25; C9803; U0003; U0005

== ENCOUNTER 2021-08-29 23:22 | Emergency (ER) | payer OTHER ==
[2021-08-29 23:32] VITALS: BP 110/73; PULSE 62; TEMP 97.6; BMI 32.1
[2021-08-30] MEDS ORDERED: LACTATED RINGERS SOLUTION 1000 ML INFUS.BAG IV ONE ×2 (00:58→01:37)
[2021-08-30 01:28] LABS: BASO % 0.3 % (0-2.0); EOS % 0.6 % (0-4.5); HEMATOCRIT 33.4 % (32.4-45.2); HEMOGLOBIN 11.3 GM/dL (10.7-15.3); LYMPH % 36.3 % (8-40); MCH 28.5 pg (25.7-33.7); MCHC 33.8 g/dl (32.0-36.0); MEAN CELL VOLUME 84.3 fl (80-96); MEAN PLT VOLUME 8.4 fl (7.5-11.1); MONO % 7.8 % (3.8-10.2); PLATELET COUNT 156 10^3/uL (134-434); RBC 3.97 M/mm3 (3.60-5.2); RDW 13.3 % (11.6-15.6); WHITE BLOOD COUNT 4.2 K/mm3 (4.0-10.0)
[2021-08-30 01:36] LABS: INR 1.63 (0.83-1.09); PROTHROMBIN TIME (PATIENT) 19.2 SEC (9.7-13.0)
[2021-08-30] MEDS ORDERED: ACETAMINOPHEN 1000 MG/100 ML VIAL IVPB ONE (01:37)
[2021-08-30 01:38] LABS: ACTIVATED PTT 36.3 SECONDS (25.2-36.5)
[2021-08-30] MEDS ORDERED: ACETAMINOPHEN INJECTION 100 ML IVPB ONE (01:46)
[2021-08-30 01:48] LABS: CHLORIDE 112 mmol/L (98-107); SODIUM 144 mmol/L (136-145)
[2021-08-30 01:49] LABS: MAGNESIUM 2.2 mg/dL (1.8-2.4)
[2021-08-30 01:50] LABS: BLOOD UREA NITROGEN 33.3 mg/dL (7-18); CALCIUM 9.2 mg/dL (8.5-10.1)
[2021-08-30 01:51] LABS: ALBUMIN 3.3 g/dl (3.4-5.0); ANION GAP 4 MMOL/L (8-16); CO2 28 mmol/L (21-32); GLUCOSE,RANDOM 79 mg/dL (74-106)
[2021-08-30 01:54] LABS: CREATININE 1.1 mg/dL (0.55-1.3); SGOT/AST 22 U/L (15-37); SGPT/ALT 21 U/L (13-61)
[2021-08-30 01:55] LABS: BILIRUBIN,TOTAL 0.5 mg/dL (0.2-1); TOT PROT 6.1 g/dl (6.4-8.2)
[2021-08-30 01:57] LABS: ALK PHOS 55 U/L (45-117)
[2021-08-30 02:15] LABS: EPI CELLS 3 /uL (0-25.1); HYALINE CASTS 0 /uL (0-3.1); PH,URINE 5.5 (5.0-8.0); URINE APPEARANCE CLEAR; URINE BACTERIA 24 /uL (0-1359); URINE BILIRUBIN NEGATIVE (NEGATIVE); URINE COLOR YELLOW; URINE GLUCOSE (UA) NEGATIVE (NEGATIVE); URINE KETONE NEGATIVE (NEGATIVE); URINE LEUK ESTERASE TRACE (NEGATIVE); URINE NITRITE NEGATIVE (NEGATIVE); URINE PROTEIN NEGATIVE (NEGATIVE); URINE RBC 1 /uL (0-23.9); URINE UROBILINOGEN 0.2 mg/dL (0.2-1.0); URINE WBC 15 /uL (0-25.8)
== END 2021-08-30 06:04 | disposition home or self-care (01) ==
LOC: JER 23:22
PROC: 3E0333Z Introduction of Anti-inflammatory into Peripheral Vein, Percutaneous Approach (ICD-10-PCS; principal; 2021-08-29)
DX: K59.00 Constipation, unspecified (principal)
CPT/HCPCS: 36415; 74177-TC; 80053; 81003; 83605; 83690; 83735; 84484; 85025; 85610; 85730; 86850; 86900; 86901; 87086; 93005; 93010; 99285-25; C9803; J0131; U0003; U0005

== ENCOUNTER 2021-12-13 10:06 | Inpatient (IN) | payer OTHER ==
[2021-12-13] MEDS ORDERED: SODIUM CHLORIDE 1,089 ML IV ONE (10:53)
[2021-12-13 13:32] LABS: ALBUMIN 3.1 g/dl (3.4-5.0); BLOOD UREA NITROGEN 23.1 mg/dL (7-18); CALCIUM 9.5 mg/dL (8.5-10.1)
[2021-12-13 13:35] LABS: CREATININE 0.9 mg/dL (0.55-1.3)
[2021-12-13 13:37] LABS: BILIRUBIN,TOTAL 0.3 mg/dL (0.2-1); TOT PROT 6.3 g/dl (6.4-8.2)
[2021-12-13 15:35] LABS: VENOUS BASE EXCESS -1.2 mmol/L (-2-2); VENOUS O2 SATURATION 98.8 % (70-80); VENOUS PCO2 35.6 mmHg (38-52); VENOUS PH 7.424 (7.310-7.410)
[2021-12-13 15:46] LABS: BASO % 0.3 % (0-2.0); EOS % 0.3 % (0-4.5); HEMATOCRIT 30.4 % (32.4-45.2); LYMPH % 10.9 % (8-40); MCH 28.7 pg (25.7-33.7); MCHC 32.8 g/dl (32.0-36.0); MEAN CELL VOLUME 87.4 fl (80-96); MEAN PLT VOLUME 8.6 fl (7.5-11.1); MONO % 7.4 % (3.8-10.2); NEUT % 81.1 % (42.8-82.8); PLATELET COUNT 265 10^3/uL (134-434); RBC 3.47 M/mm3 (3.60-5.2); RDW 15.5 % (11.6-15.6); WHITE BLOOD COUNT 5.1 K/mm3 (4.0-10.0)
[2021-12-13 16:30] LABS: PH,URINE 7.5 (5.0-8.0); URINE APPEARANCE CLEAR; URINE BILIRUBIN NEGATIVE (NEGATIVE); URINE COLOR YELLOW; URINE GLUCOSE (UA) NEGATIVE (NEGATIVE); URINE KETONE NEGATIVE (NEGATIVE); URINE LEUK ESTERASE NEGATIVE (NEGATIVE); URINE NITRITE NEGATIVE (NEGATIVE); URINE PROTEIN NEGATIVE (NEGATIVE); URINE UROBILINOGEN 0.2 mg/dL (0.2-1.0)
[2021-12-13] MEDS ORDERED: DOCUSATE NA 100 MG/10 ML UNIT-DOSE CUPS PO PRN (18:33)
[2021-12-13] MEDS ORDERED: POLYETHYLENE GLYCOL (HEALTHYLAX) 3350 17 GM PACKET PO SCH (18:45)
[2021-12-13] MEDS: SODIUM CHLORIDE 1,000 ML IV SCH (19:15)
[2021-12-13] MEDS ORDERED: POLYETHYLENE GLYCOL (HEALTHYLAX) 3350 17 GM PACKET ONE (19:23)
[2021-12-14] MEDS: SODIUM CHLORIDE 1,000 ML IV SCH ×2 (09:30→19:34)
[2021-12-14 09:51] LABS: BASO % 0.2 % (0-2.0); EOS % 0.2 % (0-4.5); HEMATOCRIT 31.6 % (32.4-45.2); HEMOGLOBIN 10.1 GM/dL (10.7-15.3); LYMPH % 15.3 % (8-40); MCH 28.6 pg (25.7-33.7); MEAN CELL VOLUME 89.3 fl (80-96); MEAN PLT VOLUME 8.5 fl (7.5-11.1); MONO % 5.4 % (3.8-10.2); NEUT % 78.9 % (42.8-82.8); PLATELET COUNT 272 10^3/uL (134-434); RBC 3.54 M/mm3 (3.60-5.2); RDW 15.6 % (11.6-15.6); WHITE BLOOD COUNT 5.5 K/mm3 (4.0-10.0)
[2021-12-14] MEDS ORDERED: ACETAMINOPHEN 1000 MG/100 ML BAG IVPB PRN (09:53)
[2021-12-14] MEDS: MINERAL OIL ENEMA 133 ML ENEMA RC SCH (10:00)
[2021-12-14] MEDS ORDERED: LEVOTHYROXINE SODIUM 100 MCG VIAL IVPUSH SCH (10:00)
[2021-12-14 10:02] LABS: INR 1.24 (0.83-1.09); PROTHROMBIN TIME (PATIENT) 14.3 SEC (9.7-13.0)
[2021-12-14 10:10] LABS: ALBUMIN 2.7 g/dl (3.4-5.0); BLOOD UREA NITROGEN 21.2 mg/dL (7-18); CALCIUM 8.5 mg/dL (8.5-10.1); MAGNESIUM 2.2 mg/dL (1.8-2.4)
[2021-12-14 10:12] LABS: CREATININE 0.6 mg/dL (0.55-1.3); PHOSPHOROUS 2.6 mg/dL (2.5-4.9)
[2021-12-14 10:13] LABS: BILIRUBIN,TOTAL 0.5 mg/dL (0.2-1); TOT PROT 5.3 g/dl (6.4-8.2)
[2021-12-14 10:15] LABS: IRON SERUM 52 ug/dL (50-175); TOTAL IRON BINDING CAPACITY 151 ug/dL (250-450)
[2021-12-14] MEDS ORDERED: ACETAMINOPHEN INJECTION 100 ML IVPB ONE (10:56)
[2021-12-14] MEDS ORDERED: ENOXAPARIN NA (PORCINE) 40 MG/0.4 ML DISP.SYRIN SQ ONE (10:57)
[2021-12-14] MEDS: ACETAMINOPHEN 1000 MG/100 ML BAG IVPB PRN ×2 (11:00→21:41)
[2021-12-14] MEDS: ENOXAPARIN NA (PORCINE) 40 MG/0.4 ML DISP.SYRIN SQ SCH (11:00)
[2021-12-14] MEDS: POLYETHYLENE GLYCOL (HEALTHYLAX) 3350 17 GM PACKET PO SCH ×2 (15:26→21:30)
[2021-12-15] MEDS: SODIUM CHLORIDE 1,000 ML IV SCH (00:03)
[2021-12-15] MEDS: LEVOTHYROXINE SODIUM 100 MCG VIAL IVPUSH SCH (06:50)
[2021-12-15] MEDS: POLYETHYLENE GLYCOL (HEALTHYLAX) 3350 17 GM PACKET PO SCH ×3 (06:50→22:44)
[2021-12-15] MEDS: COLLAGENASE CLOSTRIDIUM HIST. 30 GRAMS TUBE TP SCH (10:17)
[2021-12-15] MEDS: MINERAL OIL ENEMA 133 ML ENEMA RC SCH (10:17)
[2021-12-15] MEDS: ENOXAPARIN NA (PORCINE) 40 MG/0.4 ML DISP.SYRIN SQ SCH (10:35)
[2021-12-15] MEDS ORDERED: ACETAMINOPHEN 1000 MG/100 ML BAG IVPB ONE ×2 (12:09→15:45)
[2021-12-15 17:09] VITALS: BMI 14.1
[2021-12-15] MEDS ORDERED: VANCOMYCIN 500 MG in DEXTROSE 5%-WATER 100 ML IVPB ONE (21:00)
[2021-12-15] MEDS: ACETAMINOPHEN 325 MG TABLET (FP) PO PRN (22:56)
[2021-12-16] MEDS: LEVOTHYROXINE SODIUM 100 MCG VIAL IVPUSH SCH (06:25)
[2021-12-16] MEDS: POLYETHYLENE GLYCOL (HEALTHYLAX) 3350 17 GM PACKET PO SCH ×3 (06:25→22:03)
[2021-12-16] MEDS: SODIUM CHLORIDE 1,000 ML IV SCH (06:27)
[2021-12-16] MEDS ORDERED: PEG 3350/NA SULF BICARB CL/KCL 4000 ML SOLN.RECON PO ONE (08:40)
[2021-12-16] MEDS: ENOXAPARIN NA (PORCINE) 40 MG/0.4 ML DISP.SYRIN SQ SCH ×2 (09:34→09:45)
[2021-12-16] MEDS: COLLAGENASE CLOSTRIDIUM HIST. 30 GRAMS TUBE TP SCH (09:34)
[2021-12-16 12:43] LABS: HEMATOCRIT 33.6 % (32.4-45.2); HEMOGLOBIN 11.4 GM/dL (10.7-15.3); MCH 29.7 pg (25.7-33.7); MCHC 33.9 g/dl (32.0-36.0); MEAN CELL VOLUME 87.6 fl (80-96); MEAN PLT VOLUME 8.8 fl (7.5-11.1); PLATELET COUNT 282 10^3/uL (134-434); RBC 3.83 M/mm3 (3.60-5.2); RDW 15.5 % (11.6-15.6); WHITE BLOOD COUNT 7.7 K/mm3 (4.0-10.0)
[2021-12-16 13:18] LABS: BLOOD UREA NITROGEN 26.5 mg/dL (7-18)
[2021-12-16 13:19] LABS: ALBUMIN 2.7 g/dl (3.4-5.0); CALCIUM 8.8 mg/dL (8.5-10.1); CREATININE 0.9 mg/dL (0.55-1.3); MAGNESIUM 2.3 mg/dL (1.8-2.4)
[2021-12-16 13:20] LABS: BILIRUBIN,TOTAL 0.5 mg/dL (0.2-1); TOT PROT 5.4 g/dl (6.4-8.2)
[2021-12-16] MEDS: MIRTAZAPINE 15 MG TABLET (FP) PO SCH (22:03)
[2021-12-17] MEDS: SODIUM CHLORIDE 1,000 ML IV SCH ×3 (01:36→20:11)
[2021-12-17] MEDS: LEVOTHYROXINE SODIUM 100 MCG VIAL IVPUSH SCH (06:46)
[2021-12-17] MEDS: POLYETHYLENE GLYCOL (HEALTHYLAX) 3350 17 GM PACKET PO SCH ×3 (06:46→21:35)
[2021-12-17] MEDS: ENOXAPARIN NA (PORCINE) 40 MG/0.4 ML DISP.SYRIN SQ SCH (09:30)
[2021-12-17] MEDS: COLLAGENASE CLOSTRIDIUM HIST. 30 GRAMS TUBE TP SCH (09:31)
[2021-12-17] MEDS: ACETAMINOPHEN 325 MG TABLET (FP) PO PRN (11:56)
[2021-12-17] MEDS ORDERED: ONDANSETRON *ODT* 4 MG TABLET SL PRN (12:51)
[2021-12-17] MEDS ORDERED: SIMETHICONE 80 MG TAB.CHEW (FP) PO PRN (12:51)
[2021-12-17] MEDS ORDERED: GLYCERIN 1 RECTAL SUPPOSITORY, ADULT RC ONE (12:51)
[2021-12-17] MEDS: MIRTAZAPINE 15 MG TABLET (FP) PO SCH (21:35)
[2021-12-18] MEDS: POLYETHYLENE GLYCOL (HEALTHYLAX) 3350 17 GM PACKET PO SCH ×3 (06:26→21:09)
[2021-12-18] MEDS: LEVOTHYROXINE NA 200 MCG TABLET PO SCH (06:26)
[2021-12-18] MEDS: LIOTHYRONINE SODIUM 5 MCG TABLET PO SCH (07:08)
[2021-12-18] MEDS: ENOXAPARIN NA (PORCINE) 40 MG/0.4 ML DISP.SYRIN SQ SCH (09:46)
[2021-12-18] MEDS: COLLAGENASE CLOSTRIDIUM HIST. 30 GRAMS TUBE TP SCH (09:47)
[2021-12-18] MEDS ORDERED: AMMONIUM LACTATE 12% LOTION 225 GM BOTTLE TP PRN (13:12)
[2021-12-18] MEDS: MIRTAZAPINE 15 MG TABLET (FP) PO SCH (21:09)
[2021-12-19] MEDS: POLYETHYLENE GLYCOL (HEALTHYLAX) 3350 17 GM PACKET PO SCH ×3 (06:18→21:22)
[2021-12-19] MEDS: LEVOTHYROXINE NA 200 MCG TABLET PO SCH (06:18)
[2021-12-19] MEDS: LIOTHYRONINE SODIUM 5 MCG TABLET PO SCH (06:18)
[2021-12-19] MEDS: COLLAGENASE CLOSTRIDIUM HIST. 30 GRAMS TUBE TP SCH (09:50)
[2021-12-19] MEDS: ENOXAPARIN NA (PORCINE) 40 MG/0.4 ML DISP.SYRIN SQ SCH (09:50)
[2021-12-19 10:02] LABS: CALCIUM 8.6 mg/dL (8.5-10.1)
[2021-12-19 10:03] LABS: BLOOD UREA NITROGEN 15.2 mg/dL (7-18)
[2021-12-19 10:06] LABS: CREATININE 0.7 mg/dL (0.55-1.3)
[2021-12-19] MEDS: metoPROLOL SUCCINATE 25 MG TAB.SR.24H (FP) PO SCH (14:33)
[2021-12-19] MEDS: ACETAMINOPHEN 325 MG TABLET (FP) PO PRN (14:33)
[2021-12-19] MEDS ORDERED: SODIUM ZIRCONIUM CYCLOSILICATE (LOKELMA) 5 GM PACKET PO ONE (14:37)
[2021-12-19 19:06] LABS: SARS-CoV-2 NAA Not Detected (Not Detected)
[2021-12-19] MEDS: MIRTAZAPINE 15 MG TABLET (FP) PO SCH (21:22)
[2021-12-20] MEDS: SODIUM CHLORIDE 0.45% 1,000 ML IV SCH ×2 (02:18→17:01)
[2021-12-20] MEDS: LEVOTHYROXINE NA 200 MCG TABLET PO SCH (06:06)
[2021-12-20] MEDS: LIOTHYRONINE SODIUM 5 MCG TABLET PO SCH (06:07)
[2021-12-20] MEDS: POLYETHYLENE GLYCOL (HEALTHYLAX) 3350 17 GM PACKET PO SCH ×3 (06:07→22:11)
[2021-12-20] MEDS ORDERED: ENOXAPARIN NA (PORCINE) 40 MG/0.4 ML DISP.SYRIN SQ SCH (06:43)
[2021-12-20] MEDS: ENOXAPARIN NA (PORCINE) 40 MG/0.4 ML DISP.SYRIN SQ SCH ×2 (06:48→19:02)
[2021-12-20 09:25] LABS: ALBUMIN 2.1 g/dl (3.4-5.0); BILIRUBIN,TOTAL 0.3 mg/dL (0.2-1); BLOOD UREA NITROGEN 20.3 mg/dL (7-18); CALCIUM 8.6 mg/dL (8.5-10.1); CREATININE 0.8 mg/dL (0.55-1.3); TOT PROT 4.7 g/dl (6.4-8.2)
[2021-12-20] MEDS: metoPROLOL SUCCINATE 25 MG TAB.SR.24H (FP) PO SCH (10:28)
[2021-12-20] MEDS: COLLAGENASE CLOSTRIDIUM HIST. 30 GRAMS TUBE TP SCH (10:29)
[2021-12-20] MEDS: MIRTAZAPINE 15 MG TABLET (FP) PO SCH (22:11)
[2021-12-21] MEDS: ENOXAPARIN NA (PORCINE) 40 MG/0.4 ML DISP.SYRIN SQ SCH (06:25)
[2021-12-21] MEDS: LIOTHYRONINE SODIUM 5 MCG TABLET PO SCH (06:26)
[2021-12-21] MEDS: POLYETHYLENE GLYCOL (HEALTHYLAX) 3350 17 GM PACKET PO SCH (06:26)
[2021-12-21] MEDS: LEVOTHYROXINE NA 200 MCG TABLET PO SCH (06:29)
[2021-12-21 08:10] LABS: SARS-CoV-2 NAA Not Detected (Not Detected)
[2021-12-21] MEDS: COLLAGENASE CLOSTRIDIUM HIST. 30 GRAMS TUBE TP SCH (09:43)
[2021-12-21] MEDS: metoPROLOL SUCCINATE 25 MG TAB.SR.24H (FP) PO SCH (09:43)
[2021-12-21 09:45] VITALS: BP 122/81; PULSE 100; TEMP 97.6
== END 2021-12-21 11:37 | DRG 644 ==
LOC: JER 10:06 → INTOOBSV 17:23 → UNDOADMOB 17:23 → JERBED 17:23 → UNDOADMOB 12-14 08:54 → JERBED 12-14 13:51 → J8W 12-14 13:51 → INTOOBSV 12-14 16:03 → OBSVTOIN 12-14 16:03 → J8W 12-16 16:03
PROVIDERS: ADMIT Internal Medicine; ATTEND Family Medicine
DX: E03.9 Hypothyroidism, unspecified (principal); E87.2 Acidosis; R78.81 Bacteremia; I24.8 Other forms of acute ischemic heart disease; R64 Cachexia; Z68.1 Body mass index [BMI] 19.9 or less, adult; E87.0 Hyperosmolality and hypernatremia; K56.41 Fecal impaction; I10 Essential (primary) hypertension; E87.5 Hyperkalemia; E78.5 Hyperlipidemia, unspecified; F41.8 Other specified anxiety disorders; E11.9 Type 2 diabetes mellitus without complications; K57.90 Diverticulosis of intestine, part unspecified, without perforation or abscess without bleeding; J45.909 Unspecified asthma, uncomplicated; F31.9 Bipolar disorder, unspecified; G43.909 Migraine, unspecified, not intractable, without status migrainosus; K44.9 Diaphragmatic hernia without obstruction or gangrene; K64.9 Unspecified hemorrhoids; R13.13 Dysphagia, pharyngeal phase; R10.9 Unspecified abdominal pain; L89.150 Pressure ulcer of sacral region, unstageable; L89.310 Pressure ulcer of right buttock, unstageable; L89.621 Pressure ulcer of left heel, stage 1; L89.611 Pressure ulcer of right heel, stage 1; E86.0 Dehydration; R77.8 Other specified abnormalities of plasma proteins; I48.0 Paroxysmal atrial fibrillation; L85.3 Xerosis cutis; Z91.14 Patient's other noncompliance with medication regimen
CPT/HCPCS: 36415; 71045-TC-FY; 74018-TC-FY; 74174-TC; 74230-TC-FY; 80048; 80053; 81003; 82553; 82803; 83540; 83550; 83605; 83735; 84100; 84439; 84443; 84481; 84484; 85025; 85027; 85610; 86850; 86900; 86901; 87040; 87086; 92611-GN; 93005; 93010; 93926-TC; 97116-GP; 97161-GP; 99285-25; C9803; G0378; Q9967; U0003; U0005

== ENCOUNTER 2022-01-09 11:41 | Inpatient (IN) | payer OTHER ==
[2022-01-09] MEDS ORDERED: ACETAMINOPHEN 1000 MG/100 ML BAG IVPB ONE (12:47)
[2022-01-09] MEDS ORDERED: SODIUM CHLORIDE 0.9% 500 ML INFUS.BAG IV ONE ×3 (12:48→12:58)
[2022-01-09] MEDS ORDERED: ACETAMINOPHEN INJECTION 100 ML IVPB ONE (13:27)
[2022-01-09 13:40] LABS: VENOUS BASE EXCESS 3.3 mmol/L (-2-2); VENOUS PCO2 45.3 mmHg (38-52); VENOUS PH 7.416 (7.310-7.410)
[2022-01-09] MEDS ORDERED: PIPERACILLIN/TAZOB 4.5 GM 4.5 GM in DEXTROSE 5%-WATER 100 ML IVPB ONE (13:42)
[2022-01-09] MEDS ORDERED: CEFEPIME HCL/D5W 2 GM/50 ML BAG IVPB ONE (13:42)
[2022-01-09] MEDS ORDERED: fentaNYL CITRATE 250 MCG/5 ML VIAL IVPUSH ONE ×2 (13:46→14:23)
[2022-01-09] MEDS ORDERED: CEFEPIME 2 GM/100 ML BAG IVPB ONE (13:55)
[2022-01-09] MEDS ORDERED: PIPERACILLIN/TAZOB 4.5 GM 4.5 GM/100 ML BAG IVPB ONE (13:55)
[2022-01-09 13:56] LABS: BASO % 0.5 % (0-2.0); EOS % 0.2 % (0-4.5); HEMATOCRIT 31.2 % (32.4-45.2); HEMOGLOBIN 10.4 GM/dL (10.7-15.3); LYMPH % 13.1 % (8-40); MCHC 33.4 g/dl (32.0-36.0); MEAN PLT VOLUME 8.3 fl (7.5-11.1); MONO % 4.9 % (3.8-10.2); NEUT % 81.3 % (42.8-82.8); PLATELET COUNT 464 10^3/uL (134-434); RBC 3.58 M/mm3 (3.60-5.2); RDW 13.8 % (11.6-15.6); WHITE BLOOD COUNT 8.7 K/mm3 (4.0-10.0)
[2022-01-09 14:02] LABS: INR 1.55 (0.83-1.09); PROTHROMBIN TIME (PATIENT) 17.9 SEC (9.7-13.0)
[2022-01-09 14:05] LABS: ACTIVATED PTT 34.7 SECONDS (25.2-36.5)
[2022-01-09 14:18] LABS: ALBUMIN 2.4 g/dl (3.4-5.0); BLOOD UREA NITROGEN 21.6 mg/dL (7-18); CALCIUM 9.2 mg/dL (8.5-10.1)
[2022-01-09 14:21] LABS: CREATININE 0.9 mg/dL (0.55-1.3)
[2022-01-09 14:23] LABS: BILIRUBIN,TOTAL 0.5 mg/dL (0.2-1); TOT PROT 5.9 g/dl (6.4-8.2)
[2022-01-09 14:35] LABS: LACTIC ACID 2.7 mmol/L (0.4-2.0)
[2022-01-09 14:43] LABS: ARTERIAL BLD GAS O2 SATURATION 99.3 % (95-98); ARTERIAL BLOOD GAS BASE EXCESS 0 mmol/L (-2-2); ARTERIAL BLOOD GAS PO2 176.5 mmHg (80-100); ARTERIAL BLOOD GAS pH 7.497 (7.350-7.450)
[2022-01-09 15:15] LABS: EPI CELLS 7 /uL (0-25.1); HYALINE CASTS 1 /uL (0-3.1); URINE APPEARANCE CLOUDY; URINE BACTERIA 5229 /uL (0-1359); URINE BILIRUBIN NEGATIVE (NEGATIVE); URINE COLOR YELLOW; URINE GLUCOSE (UA) NEGATIVE (NEGATIVE); URINE KETONE NEGATIVE (NEGATIVE); URINE LEUK ESTERASE 3+ (NEGATIVE); URINE NITRITE POSITIVE (NEGATIVE); URINE PROTEIN TRACE (NEGATIVE); URINE RBC 107 /uL (0-23.9); URINE UROBILINOGEN 0.2 mg/dL (0.2-1.0); URINE WBC 810 /uL (0-25.8)
[2022-01-09] MEDS ORDERED: SUMAtriptan SUCCINATE 50 MG TABLET PO PRN (16:59)
[2022-01-09] MEDS ORDERED: HALOPERIDOL 1 MG TABLET PO PRN (16:59)
[2022-01-09] MEDS ORDERED: ONDANSETRON *ODT* 4 MG TABLET SL PRN (16:59)
[2022-01-09] MEDS ORDERED: MIRTAZAPINE 15 MG TABLET (FP) ONE (21:05)
[2022-01-09] MEDS ORDERED: APIXABAN 2.5 MG TABLET ONE (21:05)
[2022-01-09] MEDS ORDERED: SENNOSIDES 8.6MG TABLET (FP) PO ONE (21:05)
[2022-01-09] MEDS: BENZTROPINE MESYLATE 1 MG TABLET PO SCH (21:32)
[2022-01-09] MEDS: SENNOSIDES 8.6MG TABLET (FP) PO SCH (21:32)
[2022-01-09] MEDS: APIXABAN 2.5 MG TABLET PO SCH (21:32)
[2022-01-09] MEDS: OXYBUTYNIN CHLORIDE 5 MG TABLET PO SCH (21:32)
[2022-01-09] MEDS: MIRTAZAPINE 30 MG TABLET PO SCH (21:32)
[2022-01-10] MEDS ORDERED: LEVOTHYROXINE NA 100 MCG TABLET (FP) PO SCH (07:00)
[2022-01-10] MEDS ORDERED: LEVOTHYROXINE NA 200 MCG TABLET PO SCH (07:00)
[2022-01-10] MEDS ORDERED: CEFEPIME HCL 1 GM VIAL (RESTRICTED TO ID) ONE (09:54)
[2022-01-10] MEDS ORDERED: DEXTROSE 5%-WATER 100 ML IVPB ONE (09:54)
[2022-01-10] MEDS: SENNOSIDES 8.6MG TABLET (FP) PO SCH ×2 (10:00→22:17)
[2022-01-10] MEDS ORDERED: LIOTHYRONINE SODIUM 25 MCG TABLET PO SCH (10:00)
[2022-01-10] MEDS: BENZTROPINE MESYLATE 1 MG TABLET PO SCH ×2 (10:00→22:17)
[2022-01-10] MEDS: APIXABAN 2.5 MG TABLET PO SCH ×2 (10:01→22:17)
[2022-01-10] MEDS: POLYETHYLENE GLYCOL (HEALTHYLAX) 3350 17 GM PACKET PO SCH ×2 (10:02→10:21)
[2022-01-10] MEDS: ACETAMINOPHEN 325 MG TABLET (FP) PO PRN (10:03)
[2022-01-10] MEDS: OXYBUTYNIN CHLORIDE 5 MG TABLET PO SCH ×2 (10:14→22:17)
[2022-01-10] MEDS: COLLAGENASE CLOSTRIDIUM HIST. 30 GRAMS TUBE TP SCH (11:03)
[2022-01-10] MEDS ORDERED: LIOTHYRONINE SODIUM 5 MCG TABLET PO SCH (11:15)
[2022-01-10] MEDS ORDERED: DEXTROSE 50%-WATER - 25 GM/50 ML VIAL IVPUSH PRN (11:25)
[2022-01-10] MEDS ORDERED: DEXTROSE 5%-WATER - 1,000 ML IV SCH (11:30)
[2022-01-10] MEDS ORDERED: DEXTROSE 50%-WATER - 25 GM/50 ML VIAL IVPUSH ONE (11:45)
[2022-01-10] MEDS: CEFEPIME 1 GM in DEXTROSE 5%-WATER 1 GM/100 ML BAG IVPB SCH (12:14)
[2022-01-10] MEDS: HYDROCORTISONE SOD SUCCINATE 100 MG/2 ML VIAL IVPB SCH ×2 (13:28→21:50)
[2022-01-10] MEDS: DEXTROSE 5%-NORMAL SALINE 1,000 ML IV SCH (15:01)
[2022-01-10] MEDS ORDERED: SODIUM CHLORIDE 250 ML IV STA (15:53)
[2022-01-10 18:23] LABS: HEMOGLOBIN 9.1 GM/dL (10.7-15.3); MCH 28.6 pg (25.7-33.7); MCHC 32.6 g/dl (32.0-36.0); MEAN CELL VOLUME 87.8 fl (80-96); MEAN PLT VOLUME 7.7 fl (7.5-11.1); PLATELET COUNT 392 10^3/uL (134-434); RBC 3.19 M/mm3 (3.60-5.2); RDW 13.5 % (11.6-15.6); WHITE BLOOD COUNT 7.4 K/mm3 (4.0-10.0)
[2022-01-10 18:52] LABS: CALCIUM 8.6 mg/dL (8.5-10.1)
[2022-01-10 18:53] LABS: ALBUMIN 2.1 g/dl (3.4-5.0)
[2022-01-10 18:56] LABS: CREATININE 1.1 mg/dL (0.55-1.3)
[2022-01-10 18:57] LABS: BILIRUBIN,TOTAL 0.5 mg/dL (0.2-1)
[2022-01-10 18:58] LABS: TOT PROT 5.4 g/dl (6.4-8.2)
[2022-01-10] MEDS ORDERED: HYDROCORTISONE SOD SUCCINATE 100 MG/2 ML VIAL IVPB SCH (22:00)
[2022-01-10] MEDS: MIRTAZAPINE 30 MG TABLET PO SCH (22:17)
[2022-01-11] MEDS: HYDROCORTISONE SOD SUCCINATE 100 MG/2 ML VIAL IVPB SCH ×3 (04:50→23:45)
[2022-01-11] MEDS: LIOTHYRONINE SODIUM 5 MCG TABLET PO SCH (06:31)
[2022-01-11] MEDS ORDERED: CEFEPIME HCL 1 GM VIAL (RESTRICTED TO ID) ONE (10:59)
[2022-01-11] MEDS ORDERED: DEXTROSE 5%-WATER 100 ML IVPB ONE (10:59)
[2022-01-11] MEDS: SENNOSIDES 8.6MG TABLET (FP) PO SCH ×2 (11:23→23:03)
[2022-01-11] MEDS: POLYETHYLENE GLYCOL (HEALTHYLAX) 3350 17 GM PACKET PO SCH (11:23)
[2022-01-11] MEDS: APIXABAN 2.5 MG TABLET PO SCH ×2 (11:25→23:03)
[2022-01-11] MEDS: OXYBUTYNIN CHLORIDE 5 MG TABLET PO SCH ×2 (11:25→23:04)
[2022-01-11] MEDS: BENZTROPINE MESYLATE 1 MG TABLET PO SCH ×2 (11:26→23:07)
[2022-01-11] MEDS: LEVOTHYROXINE SODIUM 100 MCG VIAL IVPUSH SCH (11:35)
[2022-01-11] MEDS: COLLAGENASE CLOSTRIDIUM HIST. 30 GRAMS TUBE TP SCH (11:57)
[2022-01-11 12:48] VITALS: BMI 18.3
[2022-01-11] MEDS: CEFEPIME 1 GM in DEXTROSE 5%-WATER 1 GM/100 ML BAG IVPB SCH (13:16)
[2022-01-11] MEDS: AMINO ACIDS/PROTEIN HYDROLYS 30 ML LIQUID.PKT PO SCH (17:31)
[2022-01-11] MEDS: DEXTROSE 5%-NORMAL SALINE 1,000 ML IV SCH (17:40)
[2022-01-11] MEDS: MIRTAZAPINE 30 MG TABLET PO SCH (23:03)
[2022-01-12] MEDS: LIOTHYRONINE SODIUM 5 MCG TABLET PO SCH (07:38)
[2022-01-12] MEDS: AMINO ACIDS/PROTEIN HYDROLYS 30 ML LIQUID.PKT PO SCH ×2 (08:22→16:40)
[2022-01-12] MEDS ORDERED: HYDROCORTISONE SOD SUCCINATE 100 MG/2 ML VIAL IVPB SCH (10:00)
[2022-01-12] MEDS ORDERED: CEFEPIME HCL 1 GM VIAL (RESTRICTED TO ID) ONE (10:08)
[2022-01-12] MEDS ORDERED: DEXTROSE 5%-WATER 100 ML IVPB ONE (10:08)
[2022-01-12] MEDS: LEVOTHYROXINE SODIUM 100 MCG VIAL IVPUSH SCH (10:14)
[2022-01-12] MEDS: POLYETHYLENE GLYCOL (HEALTHYLAX) 3350 17 GM PACKET PO SCH (10:15)
[2022-01-12] MEDS: CEFEPIME 1 GM in DEXTROSE 5%-WATER 1 GM/100 ML BAG IVPB SCH (10:15)
[2022-01-12] MEDS: HYDROCORTISONE SOD SUCCINATE 100 MG/2 ML VIAL IVPB SCH ×2 (10:15→16:59)
[2022-01-12] MEDS: ZINC SULFATE 220 MG CAPSULE (FP) PO SCH (10:16)
[2022-01-12] MEDS: APIXABAN 2.5 MG TABLET PO SCH (10:16)
[2022-01-12] MEDS: ASCORBIC ACID 500 MG TABLET (FP) PO SCH (10:16)
[2022-01-12] MEDS: SENNOSIDES 8.6MG TABLET (FP) PO SCH (10:16)
[2022-01-12] MEDS: MULTIVITAMINS (DAILY MVI) TABLET (FP) PO SCH (10:16)
[2022-01-12] MEDS: OXYBUTYNIN CHLORIDE 5 MG TABLET PO SCH (10:17)
[2022-01-12] MEDS: BENZTROPINE MESYLATE 1 MG TABLET PO SCH (10:17)
[2022-01-12] MEDS: DEXTROSE 5%-NORMAL SALINE 1,000 ML IV SCH (12:47)
[2022-01-12 14:08] LABS: INSULIN 31.6 uIU/mL (2.6-24.9)
[2022-01-12 16:22] LABS: ARTERIAL BLD GAS O2 SATURATION 92.9 % (95-98); ARTERIAL BLOOD GAS BASE EXCESS -2.3 mmol/L (-2-2); ARTERIAL BLOOD GAS pH 7.372 (7.350-7.450)
[2022-01-12] MEDS: COLLAGENASE CLOSTRIDIUM HIST. 30 GRAMS TUBE TP SCH (16:22)
[2022-01-12 16:36] LABS: BLOOD UREA NITROGEN 35.3 mg/dL (7-18); CALCIUM 9.1 mg/dL (8.5-10.1)
[2022-01-13] MEDS: HYDROCORTISONE SOD SUCCINATE 100 MG/2 ML VIAL IVPB SCH ×3 (00:37→22:26)
[2022-01-13] MEDS: SENNOSIDES 8.6MG TABLET (FP) PO SCH ×3 (00:37→22:27)
[2022-01-13] MEDS: MIRTAZAPINE 30 MG TABLET PO SCH ×2 (00:37→22:27)
[2022-01-13] MEDS: BENZTROPINE MESYLATE 1 MG TABLET PO SCH ×3 (00:37→22:27)
[2022-01-13] MEDS: APIXABAN 2.5 MG TABLET PO SCH ×2 (00:37→09:50)
[2022-01-13] MEDS: OXYBUTYNIN CHLORIDE 5 MG TABLET PO SCH ×3 (00:37→22:27)
[2022-01-13] MEDS: LIOTHYRONINE SODIUM 5 MCG TABLET PO SCH (07:12)
[2022-01-13] MEDS ORDERED: DEXTROSE 5%-WATER 100 ML IVPB ONE (09:45)
[2022-01-13] MEDS ORDERED: CEFEPIME HCL 1 GM VIAL (RESTRICTED TO ID) ONE (09:45)
[2022-01-13] MEDS: AMINO ACIDS/PROTEIN HYDROLYS 30 ML LIQUID.PKT PO SCH ×2 (09:49→16:43)
[2022-01-13] MEDS: POLYETHYLENE GLYCOL (HEALTHYLAX) 3350 17 GM PACKET PO SCH (09:50)
[2022-01-13] MEDS: ZINC SULFATE 220 MG CAPSULE (FP) PO SCH (09:50)
[2022-01-13] MEDS: CEFEPIME 1 GM in DEXTROSE 5%-WATER 1 GM/100 ML BAG IVPB SCH (09:54)
[2022-01-13] MEDS: MULTIVITAMINS (DAILY MVI) TABLET (FP) PO SCH (10:06)
[2022-01-13] MEDS: ASCORBIC ACID 500 MG TABLET (FP) PO SCH (10:06)
[2022-01-13] MEDS: COLLAGENASE CLOSTRIDIUM HIST. 30 GRAMS TUBE TP SCH (10:10)
[2022-01-13] MEDS: LEVOTHYROXINE SODIUM 100 MCG VIAL IVPUSH SCH (10:10)
[2022-01-13 11:35] LABS: CALCIUM 9.1 mg/dL (8.5-10.1)
[2022-01-13 11:36] LABS: BLOOD UREA NITROGEN 43.6 mg/dL (7-18)
[2022-01-13 11:39] LABS: CREATININE 1.2 mg/dL (0.55-1.3)
[2022-01-13 11:41] LABS: BILIRUBIN,TOTAL 0.4 mg/dL (0.2-1)
[2022-01-13] MEDS: DEXTROSE 5%-WATER - 1,000 ML IV SCH (13:20)
[2022-01-13] MEDS ORDERED: ENOXAPARIN NA (PORCINE) 40 MG/0.4 ML DISP.SYRIN SQ SCH (15:00)
[2022-01-13] MEDS ORDERED: ENOXAPARIN NA (PORCINE) 40 MG/0.4 ML DISP.SYRIN SQ ONE (15:33)
[2022-01-13] MEDS ORDERED: ENOXAPARIN NA (PORCINE) 60 MG/0.6 ML DISP.SYRIN SQ ONE (15:45)
[2022-01-14] MEDS: LIOTHYRONINE SODIUM 5 MCG TABLET PO SCH (06:16)
[2022-01-14] MEDS ORDERED: INSULIN SLIDING SCALE (NOVOLOG) 1 VIAL SQ ONE (07:10)
[2022-01-14] MEDS: AMINO ACIDS/PROTEIN HYDROLYS 30 ML LIQUID.PKT PO SCH ×2 (08:27→18:21)
[2022-01-14] MEDS: SENNOSIDES 8.6MG TABLET (FP) PO SCH ×2 (09:17→21:06)
[2022-01-14] MEDS: BENZTROPINE MESYLATE 1 MG TABLET PO SCH (09:17)
[2022-01-14] MEDS: OXYBUTYNIN CHLORIDE 5 MG TABLET PO SCH ×2 (09:17→21:05)
[2022-01-14] MEDS: POLYETHYLENE GLYCOL (HEALTHYLAX) 3350 17 GM PACKET PO SCH (09:17)
[2022-01-14] MEDS ORDERED: CEFEPIME HCL 1 GM VIAL (RESTRICTED TO ID) ONE (09:21)
[2022-01-14] MEDS ORDERED: DEXTROSE 5%-WATER 100 ML IVPB ONE (09:21)
[2022-01-14] MEDS: HYDROCORTISONE SOD SUCCINATE 100 MG/2 ML VIAL IVPB SCH ×2 (09:29→21:06)
[2022-01-14] MEDS: CEFEPIME 1 GM in DEXTROSE 5%-WATER 1 GM/100 ML BAG IVPB SCH (09:29)
[2022-01-14] MEDS: COLLAGENASE CLOSTRIDIUM HIST. 30 GRAMS TUBE TP SCH (09:29)
[2022-01-14] MEDS: LEVOTHYROXINE SODIUM 100 MCG VIAL IVPUSH SCH (09:30)
[2022-01-14 09:55] LABS: BILIRUBIN,TOTAL 0.4 mg/dL (0.2-1); TOT PROT 4.9 g/dl (6.4-8.2)
[2022-01-14 09:57] LABS: CREATININE 1.2 mg/dL (0.55-1.3)
[2022-01-14 09:58] LABS: ALBUMIN 2.1 g/dl (3.4-5.0); CALCIUM 9.2 mg/dL (8.5-10.1)
[2022-01-14 10:54] LABS: HEMATOCRIT 25.3 % (32.4-45.2); HEMOGLOBIN 8.3 GM/dL (10.7-15.3); MCH 29.1 pg (25.7-33.7); MCHC 32.9 g/dl (32.0-36.0); MEAN CELL VOLUME 88.4 fl (80-96); MEAN PLT VOLUME 8.2 fl (7.5-11.1); PLATELET COUNT 272 10^3/uL (134-434); RBC 2.86 M/mm3 (3.60-5.2); WHITE BLOOD COUNT 9.7 K/mm3 (4.0-10.0)
[2022-01-14 11:47] LABS: ANISOCYTOSIS 0; HELMET CELLS 0; HOWELL-JOLLY BODIES 0; MACROCYTOSIS 0; OVALOCYTE 0; ROULEAU 0; SICKELED CELLS 0; TARGET CELLS 0; TEAR DROP CELLS 0; TOXIC GRANULATION 0
[2022-01-14 13:23] LABS: ARTERIAL BLD GAS O2 SATURATION 98.8 % (95-98); ARTERIAL BLOOD GAS BASE EXCESS -1.4 mmol/L (-2-2); ARTERIAL BLOOD GAS PO2 138.4 mmHg (80-100); ARTERIAL BLOOD GAS pH 7.423 (7.350-7.450)
[2022-01-14] MEDS ORDERED: SODIUM CHLORIDE FOR INHALATION 3 ML VIAL.NEB IH SCH (16:00)
[2022-01-14] MEDS ORDERED: ACETYLCYSTEINE 20% 200MG/ML 30 ML VIAL *FOR ORAL / INH USE ONLY NEB SCH (16:00)
[2022-01-14] MEDS ORDERED: METOPROLOL TARTRATE 5 MG/5 ML VIAL IVPUSH ONE (16:08)
[2022-01-14] MEDS: ENOXAPARIN NA (PORCINE) 60 MG/0.6 ML DISP.SYRIN SQ SCH (16:22)
[2022-01-14] MEDS ORDERED: METOPROLOL TARTRATE 50 MG TABLET (FP) PO ONE (17:08)
[2022-01-14] MEDS: DEXTROSE 5%-WATER - 1,000 ML IV SCH (18:17)
[2022-01-14] MEDS: ACETYLCYSTEINE 20% 200MG/ML 4 ML VIAL *FOR ORAL / INH USE ONLY NEB SCH (20:33)
[2022-01-14] MEDS: ALBUTEROL SO4 0.083% IH SOL 2.5 MG/3 ML VIAL.NEB. NEB SCH (20:34)
[2022-01-14] MEDS ORDERED: MIRTAZAPINE 15 MG TABLET (FP) ONE (21:00)
[2022-01-14] MEDS: METOPROLOL TARTRATE 50 MG TABLET (FP) PO SCH (21:06)
[2022-01-14] MEDS: CHLORHEXIDINE GLUCONATE 4% CLEANSER FOR DECOLONIZATION TP SCH (21:07)
[2022-01-14] MEDS: MIRTAZAPINE 30 MG TABLET PO SCH (21:07)
[2022-01-14] MEDS: MUPIROCIN 2% TOPICAL OINTMENT FOR DECOLONIZATION NS SCH (21:07)
[2022-01-15] MEDS: BENZTROPINE MESYLATE 1 MG TABLET PO SCH ×3 (02:43→22:18)
[2022-01-15] MEDS: LIOTHYRONINE SODIUM 5 MCG TABLET PO SCH (06:45)
[2022-01-15] MEDS: AMINO ACIDS/PROTEIN HYDROLYS 30 ML LIQUID.PKT PO SCH ×2 (08:00→17:00)
[2022-01-15] MEDS: ACETYLCYSTEINE 20% 200MG/ML 4 ML VIAL *FOR ORAL / INH USE ONLY NEB SCH ×4 (08:26→20:07)
[2022-01-15] MEDS ORDERED: DEXTROSE 5%-WATER 100 ML IVPB ONE (09:44)
[2022-01-15] MEDS ORDERED: CEFEPIME HCL 1 GM VIAL (RESTRICTED TO ID) ONE (09:44)
[2022-01-15] MEDS: MUPIROCIN 2% TOPICAL OINTMENT FOR DECOLONIZATION NS SCH ×2 (10:14→22:18)
[2022-01-15] MEDS: MULTIVITAMINS (DAILY MVI) TABLET (FP) PO SCH (10:15)
[2022-01-15] MEDS: SENNOSIDES 8.6MG TABLET (FP) PO SCH ×2 (10:15→22:15)
[2022-01-15] MEDS: METOPROLOL TARTRATE 50 MG TABLET (FP) PO SCH ×2 (10:15→22:17)
[2022-01-15] MEDS: CEFEPIME 1 GM in DEXTROSE 5%-WATER 1 GM/100 ML BAG IVPB SCH (10:15)
[2022-01-15] MEDS: OXYBUTYNIN CHLORIDE 5 MG TABLET PO SCH ×2 (10:15→22:16)
[2022-01-15] MEDS: LEVOTHYROXINE SODIUM 100 MCG VIAL IVPUSH SCH (10:16)
[2022-01-15] MEDS: HYDROCORTISONE SOD SUCCINATE 100 MG/2 ML VIAL IVPB SCH ×2 (10:16→22:16)
[2022-01-15] MEDS: COLLAGENASE CLOSTRIDIUM HIST. 30 GRAMS TUBE TP SCH (10:17)
[2022-01-15] MEDS: POLYETHYLENE GLYCOL (HEALTHYLAX) 3350 17 GM PACKET PO SCH (10:38)
[2022-01-15] MEDS: DEXTROSE 5%-WATER - 1,000 ML IV SCH ×2 (10:39→13:00)
[2022-01-15] MEDS: ZINC SULFATE 220 MG CAPSULE (FP) PO SCH (10:39)
[2022-01-15] MEDS: ALBUTEROL SO4 0.083% IH SOL 2.5 MG/3 ML VIAL.NEB. NEB SCH ×4 (11:27→20:07)
[2022-01-15 12:18] LABS: BASO % 0.1 % (0-2.0); EOS % 0.1 % (0-4.5); HEMATOCRIT 29.8 % (32.4-45.2); HEMOGLOBIN 9.8 GM/dL (10.7-15.3); LYMPH % 3.8 % (8-40); MCH 29.3 pg (25.7-33.7); MCHC 32.7 g/dl (32.0-36.0); MEAN CELL VOLUME 89.4 fl (80-96); MONO % 3.7 % (3.8-10.2); NEUT % 92.3 % (42.8-82.8); PLATELET COUNT 323 10^3/uL (134-434); RBC 3.33 M/mm3 (3.60-5.2); RDW 14.6 % (11.6-15.6); WHITE BLOOD COUNT 7.1 K/mm3 (4.0-10.0)
[2022-01-15 12:31] LABS: CALCIUM 8.7 mg/dL (8.5-10.1)
[2022-01-15 12:33] LABS: BLOOD UREA NITROGEN 55.6 mg/dL (7-18); MAGNESIUM 2.3 mg/dL (1.8-2.4)
[2022-01-15 12:36] LABS: CREATININE 1.4 mg/dL (0.55-1.3); PHOSPHOROUS 2.8 mg/dL (2.5-4.9)
[2022-01-15 12:37] LABS: BILIRUBIN,TOTAL 0.5 mg/dL (0.2-1)
[2022-01-15 12:38] LABS: TOT PROT 5.6 g/dl (6.4-8.2)
[2022-01-15 14:41] LABS: ANISOCYTOSIS 0; MACROCYTOSIS 0
[2022-01-15] MEDS ORDERED: IRON SUCROSE INJECTION 300 MG in SODIUM CHLORIDE 235 ML IVPB ONE (15:10)
[2022-01-15] MEDS: ENOXAPARIN NA (PORCINE) 60 MG/0.6 ML DISP.SYRIN SQ SCH (17:00)
[2022-01-15] MEDS ORDERED: MIRTAZAPINE 15 MG TABLET (FP) ONE (20:43)
[2022-01-15] MEDS: MIRTAZAPINE 30 MG TABLET PO SCH (22:17)
[2022-01-15] MEDS: CHLORHEXIDINE GLUCONATE 4% CLEANSER FOR DECOLONIZATION TP SCH (22:17)
[2022-01-15] MEDS: ASCORBIC ACID 250 MG TABLET (FP) PO SCH (22:30)
[2022-01-16 06:44] LABS: HEMATOCRIT 25.8 % (32.4-45.2); HEMOGLOBIN 8.3 GM/dL (10.7-15.3); MCHC 32.3 g/dl (32.0-36.0); MEAN CELL VOLUME 89.8 fl (80-96); MEAN PLT VOLUME 8.6 fl (7.5-11.1); PLATELET COUNT 255 10^3/uL (134-434); RBC 2.87 M/mm3 (3.60-5.2)
[2022-01-16 06:53] LABS: ALBUMIN 1.7 g/dl (3.4-5.0); BLOOD UREA NITROGEN 66.6 mg/dL (7-18)
[2022-01-16 06:57] LABS: BILIRUBIN,TOTAL 0.3 mg/dL (0.2-1); CREATININE 1.4 mg/dL (0.55-1.3); TOT PROT 4.8 g/dl (6.4-8.2)
[2022-01-16] MEDS: LIOTHYRONINE SODIUM 5 MCG TABLET PO SCH (06:59)
[2022-01-16] MEDS: ACETYLCYSTEINE 20% 200MG/ML 4 ML VIAL *FOR ORAL / INH USE ONLY NEB SCH ×4 (07:30→20:30)
[2022-01-16] MEDS: ALBUTEROL SO4 0.083% IH SOL 2.5 MG/3 ML VIAL.NEB. NEB SCH ×4 (07:30→20:30)
[2022-01-16] MEDS ORDERED: DEXTROSE 5%-WATER 100 ML IVPB ONE (08:03)
[2022-01-16] MEDS ORDERED: CEFEPIME HCL 1 GM VIAL (RESTRICTED TO ID) ONE (08:03)
[2022-01-16] MEDS: AMINO ACIDS/PROTEIN HYDROLYS 30 ML LIQUID.PKT PO SCH ×2 (08:09→18:22)
[2022-01-16] MEDS: POLYETHYLENE GLYCOL (HEALTHYLAX) 3350 17 GM PACKET PO SCH (10:02)
[2022-01-16] MEDS: CEFEPIME 1 GM in DEXTROSE 5%-WATER 1 GM/100 ML BAG IVPB SCH (10:05)
[2022-01-16] MEDS: SENNOSIDES 8.6MG TABLET (FP) PO SCH ×2 (10:05→21:48)
[2022-01-16] MEDS: HYDROCORTISONE SOD SUCCINATE 100 MG/2 ML VIAL IVPB SCH ×2 (10:05→21:48)
[2022-01-16] MEDS: METOPROLOL TARTRATE 50 MG TABLET (FP) PO SCH ×2 (10:05→21:48)
[2022-01-16] MEDS: OXYBUTYNIN CHLORIDE 5 MG TABLET PO SCH ×2 (10:06→21:48)
[2022-01-16] MEDS: ASCORBIC ACID 250 MG TABLET (FP) PO SCH ×2 (10:06→21:48)
[2022-01-16] MEDS: ZINC SULFATE 220 MG CAPSULE (FP) PO SCH (10:06)
[2022-01-16] MEDS: ACETAMINOPHEN 325 MG TABLET (FP) PO PRN ×2 (10:06→18:19)
[2022-01-16] MEDS: LEVOTHYROXINE SODIUM 100 MCG VIAL IVPUSH SCH (10:13)
[2022-01-16] MEDS: MULTIVITAMINS (DAILY MVI) TABLET (FP) PO SCH (10:18)
[2022-01-16] MEDS: PANTOPRAZOLE SODIUM 40 MG VIAL IVPUSH SCH (10:18)
[2022-01-16] MEDS: BENZTROPINE MESYLATE 1 MG TABLET PO SCH ×2 (10:19→21:48)
[2022-01-16] MEDS: MUPIROCIN 2% TOPICAL OINTMENT FOR DECOLONIZATION NS SCH ×2 (10:20→21:48)
[2022-01-16] MEDS: COLLAGENASE CLOSTRIDIUM HIST. 30 GRAMS TUBE TP SCH (10:20)
[2022-01-16] MEDS: ENOXAPARIN NA (PORCINE) 60 MG/0.6 ML DISP.SYRIN SQ SCH (15:45)
[2022-01-16] MEDS ORDERED: MIRTAZAPINE 15 MG TABLET (FP) ONE (21:24)
[2022-01-16] MEDS: CHLORHEXIDINE GLUCONATE 4% CLEANSER FOR DECOLONIZATION TP SCH (21:48)
[2022-01-16] MEDS: MIRTAZAPINE 30 MG TABLET PO SCH (21:48)
[2022-01-17] MEDS: LIOTHYRONINE SODIUM 5 MCG TABLET PO SCH (07:29)
[2022-01-17] MEDS: ACETYLCYSTEINE 20% 200MG/ML 4 ML VIAL *FOR ORAL / INH USE ONLY NEB SCH ×4 (08:10→20:49)
[2022-01-17] MEDS: ALBUTEROL SO4 0.083% IH SOL 2.5 MG/3 ML VIAL.NEB. NEB SCH ×4 (08:10→20:49)
[2022-01-17] MEDS: PANTOPRAZOLE SODIUM 40 MG VIAL IVPUSH SCH (10:25)
[2022-01-17] MEDS: AMINO ACIDS/PROTEIN HYDROLYS 30 ML LIQUID.PKT PO SCH ×2 (10:25→18:14)
[2022-01-17] MEDS: COLLAGENASE CLOSTRIDIUM HIST. 30 GRAMS TUBE TP SCH (10:25)
[2022-01-17] MEDS: POLYETHYLENE GLYCOL (HEALTHYLAX) 3350 17 GM PACKET PO SCH (10:26)
[2022-01-17] MEDS: MUPIROCIN 2% TOPICAL OINTMENT FOR DECOLONIZATION NS SCH ×2 (10:26→22:09)
[2022-01-17] MEDS: SENNOSIDES 8.6MG TABLET (FP) PO SCH ×2 (10:26→22:09)
[2022-01-17] MEDS: LEVOTHYROXINE SODIUM 100 MCG VIAL IVPUSH SCH (10:26)
[2022-01-17] MEDS: ASCORBIC ACID 250 MG TABLET (FP) PO SCH ×2 (10:27→22:09)
[2022-01-17] MEDS: MULTIVITAMINS (DAILY MVI) TABLET (FP) PO SCH (10:27)
[2022-01-17] MEDS: HYDROCORTISONE SOD SUCCINATE 100 MG/2 ML VIAL IVPB SCH ×2 (10:27→22:09)
[2022-01-17] MEDS: ZINC SULFATE 220 MG CAPSULE (FP) PO SCH (10:27)
[2022-01-17] MEDS: OXYBUTYNIN CHLORIDE 5 MG TABLET PO SCH ×2 (10:28→22:09)
[2022-01-17] MEDS: METOPROLOL TARTRATE 50 MG TABLET (FP) PO SCH ×2 (10:28→22:09)
[2022-01-17] MEDS: BENZTROPINE MESYLATE 1 MG TABLET PO SCH ×2 (10:29→22:09)
[2022-01-17] MEDS: ACETAMINOPHEN 325 MG TABLET (FP) PO PRN (10:35)
[2022-01-17 12:28] LABS: ALLENS TEST POSITIVE; ARTERIAL BLD GAS O2 SATURATION 93.5 % (95-98); ARTERIAL BLOOD GAS BASE EXCESS -7.9 mmol/L (-2-2); ARTERIAL BLOOD GAS PO2 74.2 mmHg (80-100); ARTERIAL BLOOD GAS pH 7.293 (7.350-7.450)
[2022-01-17] MEDS: ENOXAPARIN NA (PORCINE) 60 MG/0.6 ML DISP.SYRIN SQ SCH (16:13)
[2022-01-17 20:40] LABS: MAGNESIUM 2.1 mg/dL (1.8-2.4)
[2022-01-17 20:43] LABS: PHOSPHOROUS 2.6 mg/dL (2.5-4.9)
[2022-01-17] MEDS ORDERED: MIRTAZAPINE 15 MG TABLET (FP) ONE (22:04)
[2022-01-17] MEDS: MIRTAZAPINE 30 MG TABLET PO SCH (22:09)
[2022-01-17] MEDS: CHLORHEXIDINE GLUCONATE 4% CLEANSER FOR DECOLONIZATION TP SCH (22:09)
[2022-01-18 06:59] LABS: CHLORIDE 116 mmol/L (98-107); SODIUM 146 mmol/L (136-145)
[2022-01-18 07:02] LABS: ALBUMIN 1.6 g/dl (3.4-5.0); ANION GAP 10 MMOL/L (8-16); CALCIUM 8.3 mg/dL (8.5-10.1); CO2 20 mmol/L (21-32); GLUCOSE,RANDOM 147 mg/dL (74-106); MAGNESIUM 2.2 mg/dL (1.8-2.4)
[2022-01-18 07:05] LABS: CREATININE 1.7 mg/dL (0.55-1.3); PHOSPHOROUS 2.6 mg/dL (2.5-4.9); SGOT/AST 11 U/L (15-37); SGPT/ALT 13 U/L (13-61)
[2022-01-18 07:07] LABS: BILIRUBIN,TOTAL 0.4 mg/dL (0.2-1); TOT PROT 4.3 g/dl (6.4-8.2)
[2022-01-18 07:08] LABS: ALK PHOS 70 U/L (45-117)
[2022-01-18 07:25] LABS: BLOOD UREA NITROGEN 111.3 mg/dL (7-18)
[2022-01-18] MEDS: ACETYLCYSTEINE 20% 200MG/ML 4 ML VIAL *FOR ORAL / INH USE ONLY NEB SCH ×4 (08:36→21:31)
[2022-01-18] MEDS: ALBUTEROL SO4 0.083% IH SOL 2.5 MG/3 ML VIAL.NEB. NEB SCH ×4 (08:37→20:05)
[2022-01-18] MEDS ORDERED: SODIUM CHLORIDE 500 ML IV STA (09:43)
[2022-01-18] MEDS: AMINO ACIDS/PROTEIN HYDROLYS 30 ML LIQUID.PKT PO SCH ×2 (09:52→16:39)
[2022-01-18] MEDS: LIOTHYRONINE SODIUM 5 MCG TABLET PO SCH (09:52)
[2022-01-18] MEDS: POLYETHYLENE GLYCOL (HEALTHYLAX) 3350 17 GM PACKET PO SCH (09:53)
[2022-01-18] MEDS: OXYBUTYNIN CHLORIDE 5 MG TABLET PO SCH ×2 (09:53→21:15)
[2022-01-18] MEDS: BENZTROPINE MESYLATE 1 MG TABLET PO SCH ×2 (09:53→21:14)
[2022-01-18] MEDS: PANTOPRAZOLE SODIUM 40 MG VIAL IVPUSH SCH (09:55)
[2022-01-18] MEDS: SENNOSIDES 8.6MG TABLET (FP) PO SCH ×2 (09:55→21:15)
[2022-01-18] MEDS: ZINC SULFATE 220 MG CAPSULE (FP) PO SCH (09:55)
[2022-01-18] MEDS: METOPROLOL TARTRATE 50 MG TABLET (FP) PO SCH ×3 (09:55→22:47)
[2022-01-18] MEDS: LEVOTHYROXINE SODIUM 100 MCG VIAL IVPUSH SCH (09:56)
[2022-01-18] MEDS: HYDROCORTISONE SOD SUCCINATE 100 MG/2 ML VIAL IVPB SCH ×2 (09:56→21:15)
[2022-01-18] MEDS: ASCORBIC ACID 250 MG TABLET (FP) PO SCH ×2 (09:57→21:15)
[2022-01-18] MEDS: MULTIVITAMINS (DAILY MVI) TABLET (FP) PO SCH (09:57)
[2022-01-18] MEDS: MUPIROCIN 2% TOPICAL OINTMENT FOR DECOLONIZATION NS SCH ×2 (10:13→21:14)
[2022-01-18 10:32] LABS: HEMOGLOBIN 8.6 GM/dL (10.7-15.3); MCH 28.8 pg (25.7-33.7); MCHC 31.9 g/dl (32.0-36.0); MEAN CELL VOLUME 90.3 fl (80-96); MEAN PLT VOLUME 9.3 fl (7.5-11.1); PLATELET COUNT 179 10^3/uL (134-434); RBC 2.99 M/mm3 (3.60-5.2); RDW 14.8 % (11.6-15.6); WHITE BLOOD COUNT 8.1 K/mm3 (4.0-10.0)
[2022-01-18] MEDS: D5-1/2NS+20 MEQ KCL - 20 MEQ/1,000 ML INFUS.BAG IV SCH ×4 (10:41→21:24)
[2022-01-18 11:10] LABS: ANISOCYTOSIS 0; HELMET CELLS 0; HOWELL-JOLLY BODIES 0; MACROCYTOSIS 0; OVALOCYTE 0; ROULEAU 0; SICKELED CELLS 0; TARGET CELLS 0; TEAR DROP CELLS 0; TOXIC GRANULATION 0
[2022-01-18] MEDS: COLLAGENASE CLOSTRIDIUM HIST. 30 GRAMS TUBE TP SCH (13:58)
[2022-01-18] MEDS: ENOXAPARIN NA (PORCINE) 60 MG/0.6 ML DISP.SYRIN SQ SCH (15:39)
[2022-01-18] MEDS: CHLORHEXIDINE GLUCONATE 4% CLEANSER FOR DECOLONIZATION TP SCH (21:15)
[2022-01-19] MEDS: LIOTHYRONINE SODIUM 5 MCG TABLET PO SCH (06:31)
[2022-01-19] MEDS: ACETAMINOPHEN 325 MG TABLET (FP) PO PRN (06:31)
[2022-01-19 06:48] LABS: ALLENS TEST POSITIVE; ARTERIAL BLD GAS O2 SATURATION 98.4 % (95-98); ARTERIAL BLOOD GAS BASE EXCESS -7.4 mmol/L (-2-2); ARTERIAL BLOOD GAS pH 7.337 (7.350-7.450)
[2022-01-19] MEDS: ALBUTEROL SO4 0.083% IH SOL 2.5 MG/3 ML VIAL.NEB. NEB SCH ×3 (07:55→20:14)
[2022-01-19] MEDS ORDERED: PROPOFOL 1,000,000 MCG/100 ML VIAL ONE (08:13)
[2022-01-19] MEDS: AMINO ACIDS/PROTEIN HYDROLYS 30 ML LIQUID.PKT PO SCH ×2 (08:31→17:49)
[2022-01-19] MEDS: ACETYLCYSTEINE 20% 200MG/ML 4 ML VIAL *FOR ORAL / INH USE ONLY NEB SCH ×3 (09:00→20:12)
[2022-01-19] MEDS: MUPIROCIN 2% TOPICAL OINTMENT FOR DECOLONIZATION NS SCH (09:39)
[2022-01-19] MEDS: BENZTROPINE MESYLATE 1 MG TABLET PO SCH (09:40)
[2022-01-19] MEDS: ZINC SULFATE 220 MG CAPSULE (FP) PO SCH (09:41)
[2022-01-19] MEDS: POLYETHYLENE GLYCOL (HEALTHYLAX) 3350 17 GM PACKET PO SCH ×2 (09:41→21:45)
[2022-01-19] MEDS: SENNOSIDES 8.6MG TABLET (FP) PO SCH ×2 (09:41→21:45)
[2022-01-19] MEDS: OXYBUTYNIN CHLORIDE 5 MG TABLET PO SCH ×2 (09:41→21:45)
[2022-01-19] MEDS: PANTOPRAZOLE SODIUM 40 MG VIAL IVPUSH SCH (09:41)
[2022-01-19] MEDS: METOPROLOL TARTRATE 50 MG TABLET (FP) PO SCH ×2 (09:41→21:45)
[2022-01-19] MEDS: MULTIVITAMINS (DAILY MVI) TABLET (FP) PO SCH (09:42)
[2022-01-19] MEDS: HYDROCORTISONE SOD SUCCINATE 100 MG/2 ML VIAL IVPB SCH ×2 (09:42→21:45)
[2022-01-19] MEDS: ASCORBIC ACID 250 MG TABLET (FP) PO SCH ×2 (09:43→21:46)
[2022-01-19 09:53] LABS: HEMATOCRIT 21.2 % (32.4-45.2); MCH 28.9 pg (25.7-33.7); MCHC 32.3 g/dl (32.0-36.0); MEAN CELL VOLUME 89.4 fl (80-96); MEAN PLT VOLUME 9.9 fl (7.5-11.1); PLATELET COUNT 159 10^3/uL (134-434); RBC 2.37 M/mm3 (3.60-5.2); WHITE BLOOD COUNT 8.9 K/mm3 (4.0-10.0)
[2022-01-19 09:57] LABS: HEMOGLOBIN 6.8 GM/dL (10.7-15.3)
[2022-01-19 10:12] LABS: CHLORIDE 119 mmol/L (98-107); SODIUM 146 mmol/L (136-145)
[2022-01-19 10:15] LABS: CALCIUM 8.5 mg/dL (8.5-10.1)
[2022-01-19 10:16] LABS: ALBUMIN 1.4 g/dl (3.4-5.0); ANION GAP 9 MMOL/L (8-16); CO2 19 mmol/L (21-32); GLUCOSE,RANDOM 129 mg/dL (74-106); MAGNESIUM 2.3 mg/dL (1.8-2.4)
[2022-01-19 10:19] LABS: CREATININE 1.8 mg/dL (0.55-1.3); SGOT/AST 14 U/L (15-37); SGPT/ALT 14 U/L (13-61)
[2022-01-19 10:20] LABS: BILIRUBIN,TOTAL 0.3 mg/dL (0.2-1); TOT PROT 4.3 g/dl (6.4-8.2)
[2022-01-19 10:22] LABS: ALK PHOS 70 U/L (45-117)
[2022-01-19 10:24] LABS: ANISOCYTOSIS 2+; MACROCYTOSIS 0; OVALOCYTE 1+
[2022-01-19] MEDS ORDERED: FUROSEMIDE 40 MG/4 ML INJECTABLE VIAL IVPUSH SCH (10:26)
[2022-01-19 11:05] LABS: BLOOD UREA NITROGEN 116.8 mg/dL (7-18)
[2022-01-19] MEDS: DEXTROSE 5%-0.45% SALINE 1,000 ML IV SCH (11:59)
[2022-01-19] MEDS: D5-1/2NS+20 MEQ KCL - 20 MEQ/1,000 ML INFUS.BAG IV SCH (12:01)
[2022-01-19] MEDS: LEVOTHYROXINE SODIUM 100 MCG VIAL IVPUSH SCH (12:09)
[2022-01-19] MEDS: COLLAGENASE CLOSTRIDIUM HIST. 30 GRAMS TUBE TP SCH (13:49)
[2022-01-19 14:21] LABS: HEMATOCRIT 18.5 % (32.4-45.2); MCH 29.1 pg (25.7-33.7); MCHC 33.3 g/dl (32.0-36.0); MEAN CELL VOLUME 87.4 fl (80-96); MEAN PLT VOLUME 9.3 fl (7.5-11.1); PLATELET COUNT 129 10^3/uL (134-434); RBC 2.11 M/mm3 (3.60-5.2); RDW 14.5 % (11.6-15.6); WHITE BLOOD COUNT 7.3 K/mm3 (4.0-10.0)
[2022-01-19 14:23] LABS: HEMOGLOBIN 6.1 GM/dL (10.7-15.3)
[2022-01-19 14:45] LABS: ANISOCYTOSIS 2+; MACROCYTOSIS 0; OVALOCYTE 2+; TOXIC GRANULATION 2+
[2022-01-19] MEDS: ENOXAPARIN NA (PORCINE) 60 MG/0.6 ML DISP.SYRIN SQ SCH (15:34)
[2022-01-19] MEDS: CHLORHEXIDINE GLUCONATE 4% CLEANSER FOR DECOLONIZATION TP SCH (21:45)
[2022-01-20] MEDS: BENZTROPINE MESYLATE 1 MG TABLET PO SCH ×2 (00:16→09:25)
[2022-01-20] MEDS: LIOTHYRONINE SODIUM 5 MCG TABLET PO SCH (06:25)
[2022-01-20] MEDS: ACETYLCYSTEINE 20% 200MG/ML 4 ML VIAL *FOR ORAL / INH USE ONLY NEB SCH ×2 (08:19→11:55)
[2022-01-20] MEDS: ALBUTEROL SO4 0.083% IH SOL 2.5 MG/3 ML VIAL.NEB. NEB SCH ×4 (08:19→20:30)
[2022-01-20] MEDS: OXYBUTYNIN CHLORIDE 5 MG TABLET PO SCH (09:25)
[2022-01-20] MEDS: METOPROLOL TARTRATE 50 MG TABLET (FP) PO SCH (09:25)
[2022-01-20] MEDS: POLYETHYLENE GLYCOL (HEALTHYLAX) 3350 17 GM PACKET PO SCH (09:25)
[2022-01-20] MEDS: ZINC SULFATE 220 MG CAPSULE (FP) PO SCH (09:25)
[2022-01-20] MEDS: AMINO ACIDS/PROTEIN HYDROLYS 30 ML LIQUID.PKT PO SCH ×2 (09:25→17:01)
[2022-01-20] MEDS: MULTIVITAMINS (DAILY MVI) TABLET (FP) PO SCH (09:26)
[2022-01-20] MEDS: COLLAGENASE CLOSTRIDIUM HIST. 30 GRAMS TUBE TP SCH (09:26)
[2022-01-20] MEDS: PANTOPRAZOLE SODIUM 40 MG VIAL IVPUSH SCH (09:26)
[2022-01-20] MEDS: LEVOTHYROXINE SODIUM 100 MCG VIAL IVPUSH SCH (09:26)
[2022-01-20] MEDS: SENNOSIDES 8.6MG TABLET (FP) PO SCH (09:26)
[2022-01-20] MEDS: HYDROCORTISONE SOD SUCCINATE 100 MG/2 ML VIAL IVPB SCH (09:26)
[2022-01-20] MEDS: ASCORBIC ACID 250 MG TABLET (FP) PO SCH (09:26)
[2022-01-20] MEDS: DEXTROSE 5%-0.45% SALINE 1,000 ML IV SCH (11:43)
[2022-01-20] MEDS ORDERED: SODIUM CHLORIDE 1,000 ML IV SCH (13:45)
[2022-01-20] MEDS ORDERED: LORazepam 2 MG/ML SDV VIAL IVPUSH ONE (15:05)
[2022-01-20] MEDS: ENOXAPARIN NA (PORCINE) 60 MG/0.6 ML DISP.SYRIN SQ SCH (15:20)
[2022-01-20 15:42] LABS: HEMATOCRIT 34.2 % (32.4-45.2); HEMOGLOBIN 11.3 GM/dL (10.7-15.3); MCH 29.5 pg (25.7-33.7); MCHC 33.2 g/dl (32.0-36.0); MEAN CELL VOLUME 88.8 fl (80-96); MEAN PLT VOLUME 9.8 fl (7.5-11.1); PLATELET COUNT 105 10^3/uL (134-434); RBC 3.85 M/mm3 (3.60-5.2); RDW 14.4 % (11.6-15.6); WHITE BLOOD COUNT 8.1 K/mm3 (4.0-10.0)
[2022-01-20 16:06] LABS: CHLORIDE 117 mmol/L (98-107); SODIUM 146 mmol/L (136-145)
[2022-01-20 16:08] LABS: CALCIUM 8.3 mg/dL (8.5-10.1)
[2022-01-20 16:09] LABS: ANION GAP 10 MMOL/L (8-16); CO2 18 mmol/L (21-32); GLUCOSE,RANDOM 166 mg/dL (74-106); MAGNESIUM 2.3 mg/dL (1.8-2.4)
[2022-01-20 16:12] LABS: CREATININE 2.1 mg/dL (0.55-1.3); PHOSPHOROUS 4.8 mg/dL (2.5-4.9); SGOT/AST 15 U/L (15-37); SGPT/ALT 16 U/L (13-61)
[2022-01-20 16:14] LABS: BILIRUBIN,TOTAL 0.3 mg/dL (0.2-1); TOT PROT 3.7 g/dl (6.4-8.2)
[2022-01-20 16:15] LABS: ALK PHOS 92 U/L (45-117)
[2022-01-20 16:23] LABS: ALBUMIN 1.1 g/dl (3.4-5.0)
[2022-01-20 16:36] LABS: ANISOCYTOSIS 1+; MACROCYTOSIS 0; TOXIC GRANULATION 1+
[2022-01-21] MEDS: CHLORHEXIDINE GLUCONATE 4% CLEANSER FOR DECOLONIZATION TP SCH (00:20)
[2022-01-21] MEDS: POLYETHYLENE GLYCOL (HEALTHYLAX) 3350 17 GM PACKET PO SCH (00:20)
[2022-01-21] MEDS: METOPROLOL TARTRATE 50 MG TABLET (FP) PO SCH (00:20)
[2022-01-21] MEDS: HYDROCORTISONE SOD SUCCINATE 100 MG/2 ML VIAL IVPB SCH (00:21)
[2022-01-21] MEDS: SENNOSIDES 8.6MG TABLET (FP) PO SCH (00:21)
[2022-01-21 03:27] VITALS: TEMP 98.9
[2022-01-21 03:28] VITALS: BP 34/25; PULSE 80
== END 2022-01-21 02:15 | disposition expired | DRG 388 ==
LOC: JER 11:41 → JERBED 15:36 → J5S 01-10 01:31 → JICU 01-14 13:36
PROVIDERS: ADMIT Family Medicine; ATTEND Family Medicine
PROC: 0DH67UZ Insertion of Feeding Device into Stomach, Via Natural or Artificial Opening (ICD-10-PCS; principal; 2022-01-14)
PROC: 3E0G76Z Introduction of Nutritional Substance into Upper GI, Via Natural or Artificial Opening (ICD-10-PCS; 2022-01-14)
DX: K56.41 Fecal impaction (principal); L89.153 Pressure ulcer of sacral region, stage 3; J96.01 Acute respiratory failure with hypoxia; J69.0 Pneumonitis due to inhalation of food and vomit; N39.0 Urinary tract infection, site not specified; N17.9 Acute kidney failure, unspecified; R64 Cachexia; Z68.1 Body mass index [BMI] 19.9 or less, adult; E46 Unspecified protein-calorie malnutrition; E87.2 Acidosis; E87.0 Hyperosmolality and hypernatremia; F31.9 Bipolar disorder, unspecified; E03.9 Hypothyroidism, unspecified; E78.5 Hyperlipidemia, unspecified; I10 Essential (primary) hypertension; J45.909 Unspecified asthma, uncomplicated; E11.649 Type 2 diabetes mellitus with hypoglycemia without coma; Z79.01 Long term (current) use of anticoagulants; Z88.0 Allergy status to penicillin; I48.0 Paroxysmal atrial fibrillation; E86.0 Dehydration; N28.1 Cyst of kidney, acquired; E27.8 Other specified disorders of adrenal gland; D64.9 Anemia, unspecified; Z66 Do not resuscitate
CPT/HCPCS: 36415; 36430; 36600; 70450-TC; 71045-TC-FY; 74018-TC-FY; 74177-TC; 80048; 80053; 81003; 82024; 82533; 82550; 82803; 82962; 83525; 83540; 83550; 83605; 83735; 84100; 84439; 84443; 84481; 85025; 85027; 85379; 85610; 85730; 86850; 86900; 86901; 86922; 87040; 87086; 87804; 93005; 93010; 94640; 94660; 97161-GP; 99285-25; C9803-CS; J1756; P9058; U0003; U0005